=== PATIENT | female | born 1940 | race Caucasian/White ===

== ENCOUNTER 2022-04-26 01:31 | Emergency (ER) | payer MEDICARE, BC, SELFPAY ==
[2022-04-26 02:06] VITALS: BP 225/113; PULSE 127; RESP 18
[2022-04-26 02:35] LABS: Basophils Percent Auto 0.4 % (0.0-3.0); Eosinophils Percent Auto 2.3 % (0.0-7.0); Hematocrit 36.9 % (33.0-51.0); Hemoglobin* 12.1 gm/dL (12.0-16.0); Immature Granulocytes Abs Auto 0.02 K/uL (0.00-0.30); Lymphocytes Percent Auto 50.8 % (20-44); Mean Corpuscular HGB Conc 33 gm/dL (32-36); Mean Corpuscular Hemoglobin 30 pg (26-34); Mean Corpuscular Volume 91 fL (80-100); Monocytes Percent Auto 9.4 % (0.0-11.0); Neutrophils Percent Auto 36.9 % (42.0-72.0); Platelet Count* 348 K/uL (140-440); RDW Coefficient of Variation % 14.3 % (11.5-15.5); Red Blood Count 4.07 m/uL (4.00-5.20); White Blood Count* 11.78 K/uL (4.50-11.00)
--- NOTE | 2022-04-26 02:37 | ED.ARRPALP ---
HPI - Arrhythmia/Palpitations General Time Seen by Provider: 02:37 Date Seen: 04/26/22 Chief Complaint: Arrhythmia/Palpitations Stated Complaint: Chest pain In tachycardia for last hour Time Seen by Provider: 04/26/22 01:56 Source: patient Mode of arrival: ambulatory Limitations: no limitations History of Present Illness HPI narrative: Pleasant 82-year-old lady presents here with a tachycardia this started approximately an hour ago while she was sleeping, woke her up for sleep she notes a little bit of tightness in the left side of her chest also. Never before had this at least in her house, she had this once after what sounds like a Lexiscan done at the [facility]. She ended up getting sent to the ER they gave her for medications and resolved. She has had 2 previous angiograms greater than 10 years ago that were both clean, and a Lexiscan 2 years ago that also showed no evidence of abnormality. She has no exertional chest pain no shortness of breath no other problems, denies any other cardiac risk factors other than her age. Was not drinking alcohol tonight, she does not use any cold type medications, denies any leg swelling, fevers, chills, cough cold-like symptoms MD complaint: rapid heart beat Onset (ago): hour(s) Time: 01:00 Duration: constant Severity: moderate Context: occurred during rest Arrhythmia history: SVT Associated symptoms: chest pain Related Data Allergies Allergy/AdvReac Type Severity Reaction Status Date / Time lisinopril AdvReac Verified 04/26/22 03:25 metoprolol AdvReac Verified 04/26/22 03:25 Review of Systems Status of ROS: Reports: 10 or more systems reviewed and unremarkable except as noted in History and below Exam Const: Vital Signs, click to edit/add: Vital Signs - 24 hr 04/26/22 02:06 04/26/22 04:22 Pulse Rate [Apical ] 127 H 83 Respiratory Rate 18 16 Blood Pressure [Le ft Upper Arm] 225/113 H Documenting provider has reviewed patient's vital signs: yes Common normals: no apparent distress, average body habitus and oriented x3 General appearance: cooperative, comfortable, well kempt and well developed Nutritional appearance: overweight Orientation/consciousness: Yes awake, Yes oriented to person, Yes oriented to place and Yes oriented to time HENMT: Common normals: normocephalic, head/scalp atraumatic, hearing grossly normal bilaterally, external ears normal, EAC's normal, TM's normal bilaterally, external nose normal, nasal mucous membranes and turbinates normal, moist oral mucous membranes, oropharynx normal, dentition normal and gingiva normal Head and scalp: normocephalic and atraumatic Nose: external nose normal and nasal mucous membranes and turbinates normal External ear: external ears normal External auditory canal: EAC's normal Tympanic membrane: TM's normal bilaterally Eye: Common normals: PERRL, EOMs intact bilaterally, conjunctivae normal, no scleral icterus, no papilledema, normal visual sloan by confrontation and fundi normal bilaterally Conjunctiva: conjunctiva(e) normal Pupil: PERRL Direct Ophthalmoscopy: no papilledema and fundi normal bilaterally Neck & C-Spine: Common normals: full ROM, no lymphadenopathy, supple, no meningeal signs, no JVD, thyroid normal and no carotid bruits Thyroid: thyroid normal Resp: Common normals: normal respiratory effort, no retractions, no use of accessory muscles, clear to auscultation bilaterally and percussion normal Auscultation: clear to auscultation bilaterally Percussion: percussion normal Cardio: Common normals: no JVD, regular rate, regular rhythm, S1 normal heart sound, S2 normal heart sound, no gallops, no clicks, no murmurs, no rub and peripheral pulses 2+ throughout Palpation: normal PMI Rate: regular rate Rhythm: regular rhythm Heart sounds: S1 normal and S2 normal Peripheral pulses: pulses 2+ throughout GI: Common normals: Normal to inspection, nondistended, normoactive bowel sounds present, soft to palpation, non-tender, no hepatosplenomegaly, no masses and no bruits Palpation: soft and no hepatosplenomegaly : Common normals: no CVA tenderness Bladder/kidney exam: no CVA tenderness Back & Pelvis: Common normals: no CVA tenderness Neuro: Common normals: oriented x3, CN's II-XII intact bilaterally, moves all extremities, no focal motor deficits, no sensory deficits noted, deep tendon reflexes 2+ bilaterally and gait normal Sensorium/orientation: awake, oriented to person, oriented to place and oriented to time Meningeal signs: no meningeal signs Psych: Appearance: well kempt Skin: Common normals: no rashes or lesions noted, no wounds, skin turgor normal, no jaundice, no petechiae and no mottling General skin exam: no rashes or lesions noted and turgor normal Course Course Hospital Course: Patient is seen and assessed she has narrow complex tachycardia, rate is consistent between 140 and 150, I do not see P waves, her EKG does not show significant ST wave depression, in comparison to old EKG from February of this year, no real change noted other than she has a shorter VT interval. I do recommend we do laboratory testing, and try some adenosine, unfortunately the adenosine both 6 and 12 mg in not convert her. We then started her on fluids, 2 L of fluids along with 2 g of magnesium, and also diltiazem 20 mg, after approximately 20 minute she then converted to normal sinus rhythm. And feels much improved. Vital Signs Vital signs: Initial Vital Signs Pulse Rate 127 H 04/26/22 02:06 Pulse Rhythm 04/26/22 02:06 Respiratory Rate 18 04/26/22 02:06 Blood Pressure 225/113 H 04/26/22 02:06 Blood Pressure Mean 150 04/26/22 02:06 Blood Pressure Position Supine 04/26/22 02:06 Oxygen Delivery Method 04/26/22 02:06 Vital Signs Pulse Rate 127 H 04/26/22 02:06 Respiratory Rate 18 04/26/22 02:06 Blood Pressure 225/113 H 04/26/22 02:06 Pulse Rate 83 04/26/22 04:22 Respiratory Rate 16 04/26/22 04:22 Blood Pressure 225/113 H 04/26/22 02:06 MDM - Arrhythmia/Palpitations MDM Narrative Medical decision making narrative: Differential diagnosis includes but is not limited to psychosocial stress, thyroid abnormalities, CHF, SVT, atrial fibrillation, ventricular tachycardia and ventricular fibrillation. This includes the life-threatening complications of heart failure, V-tach, and VFib Medical Records Attestation: I reviewed the patient's medical records. Lab Data Attestation: I reviewed the patient's lab results. Labs: Lab Results 04/26/22 04/26/22 04/26/22 Range/Units 02:25 02:25 02:25 WBC 11.78 H (4.50-11.00) K/uL RBC 4.07 (4.00-5.20) m/uL Hgb 12.1 (12.0-16.0) gm/dL Hct 36.9 (33.0-51.0) % MCV 91 (80-100) fL MCH 30 (26-34) pg MCHC 33 (32-36) gm/dL RDW Coeff of Albert 14.3 (11.5-15.5) % Plt Count 348 (140-440) K/uL Neut % (Auto) 36.9 L (42.0-72.0) % Lymph % (Auto) 50.8 H (20-44) % [place] % (Auto) 9.4 (0.0-11.0) % Eos % (Auto) 2.3 (0.0-7.0) % Baso % (Auto) 0.4 (0.0-3.0) % Neut # (Auto) 4.30 (1.7-7.0) K/uL Lymph # (Auto) 6.00 H (0.90-2.90) K/uL [place] # (Auto) 1.10 H (0.00-0.90) K/UL Eos # (Auto) 0.30 (0.00-0.50) K/uL Baso # (Auto) 0.00 (0.00-0.30) K/uL Abs Immat Gran (auto) 0.02 (0.00-0.30) K/uL INR 0.98 (0.91-1.10) APTT 33 (23-33) Seconds Sodium 139 (135-149) mmol/L Potassium 3.8 (3.6-5.1) mmol/L Chloride 105 (96-114) mmol/L Carbon Dioxide 24 (20-32) mmol/L BUN 27 (7-30) mg/dL Creatinine 1.1 (0.5-1.5) mg/dL Estimated GFR 50 ml/min Glucose 120 H (60-115) mg/dL Calcium 9.4 (8.4-10.6) mg/dL Troponin I < 0.01 L (0.01-0.04) ng/mL C-Reactive Protein < 0.5 L (0.5-1.0) mg/dL NT-Pro-B Natriuret Pep 713 H (0-450) PG/mL ECG Data Attestation: I personally reviewed and interpreted this ECG as follows: ECG interpretation date: 04/26/22 Prior ECG tracings: available for review Interpretation: Initial EKG showed narrow complex tachycardia but there seems to be some irregularity of atrial fibrillation with a rate at 150.. Some mild ST wave changes also with this. Follow-up EKG after patient converted, shows normal sinus rhythm Critical Care Time Critical Care Time Critical Care Time: Yes Attestation: The patient required my highest level preparedness to intervene emergently and I personally spent this critical care time directly and personally managing the patient. This critical care time included: Obtaining a history; Examining the patient; Pulse oximetry; Ordering and reviewing of studies; Arranging urgent treatment with development of a management plan; Evaluation of patients response to treatment; Frequent reassessment discussions with other providers. This critical care time was performed to assess and manage the high probability of imminent life-threatening deterioration that could result in multiorgan failure. It was exclusive of separate billable procedures and treating other patients and teaching time. Total Critical Care Time in Minutes: 60 Discharge Plan Discharge Clinical Impression: Atrial fibrillation Patient Disposition: Home w/ Parent or Adult Condition: Improved Instructions: A-fib (Atrial Fibrillation) (ED) Additional Instructions: Home rest 81 mg a day aspirin, this is to prophylax. Follow-up if increasing chest pain shortness of breath or other issues. Suggest to follow up with Cardiology, Return as needed. Activity Level: No Restrictions Follow Up/Referrals: Irma Mandujano DO [Primary Care Provider] - Stand Alone Forms: [employer] Info Instructions
[2022-04-26 02:40] LABS: Slide Review Reflex No
[2022-04-26 02:50] LABS: Chloride* 105 mmol/L (96-114); Potassium* 3.8 mmol/L (3.6-5.1); Sodium* 139 mmol/L (135-149)
[2022-04-26 02:52] LABS: INR 0.98 (0.91-1.10); Prothrombin Time 13.4 Seconds
[2022-04-26 02:53] LABS: Creatinine* 1.1 mg/dL (0.5-1.5); Estimated Glomerular Filt Rate 50 ml/min; Partial Thromboplastin Time* 33 Seconds (23-33)
[2022-04-26 02:54] LABS: Blood Urea Nitrogen* 27 mg/dL (7-30); Calcium* 9.4 mg/dL (8.4-10.6); Carbon Dioxide* 24 mmol/L (20-32); Glucose* 120 mg/dL (60-115)
[2022-04-26 02:58] VITALS: BP 205/103; PULSE 141; RESP 16; O2SAT 99
[2022-04-26 03:03] LABS: NT Pro B Type NatriureticPept* 713 PG/mL (0-450)
[2022-04-26 03:07] VITALS: BP 225/138; PULSE 152; O2SAT 99
[2022-04-26 03:07] LABS: C Reactive Protein* < 0.5 mg/dL (0.5-1.0); Troponin I* < 0.01 ng/mL (0.01-0.04)
[2022-04-26] MEDS: ADENOSINE 6 MG/2ML INJ IVP (03:22)
[2022-04-26] MEDS: ADENOSINE 6 MG/2ML INJ 12 MG IVP (03:22)
[2022-04-26] MEDS: 0.9 % SODIUM CHLORIDE 1000 ml 1,000 ML IV (03:35)
[2022-04-26 03:42] VITALS: BP 184/77; PULSE 78; O2SAT 99
[2022-04-26] MEDS: MAGNESIUM SULFATE 2 GM/50 ML PIGGYBACK IVPB (03:45)
[2022-04-26 04:22] VITALS: PULSE 83; RESP 16
[2022-04-26 05:22] LABS: Magnesium* 2.4 mg/dL (1.5-2.6)
== END 2022-04-26 04:38 | disposition home or self-care (01) ==
PROVIDERS: Emergency Provider Family Medicine; PCP Family Medicine
DX: I48.91 Unspecified atrial fibrillation (principal)
CPT/HCPCS: 36415; 80048; 83735; 83880; 84484; 85025; 85610; 85730; 86140; 93005; 99285; 99291; J0153; J3475; J7030

== ENCOUNTER 2022-06-23 13:03 | Outpatient (CLI) | payer MEDICARE, BC, SELFPAY | END 2022-06-23 13:04 | disposition home or self-care (01) | LOC: INJ CL 13:04 | PROVIDERS: PCP Family Medicine; Visit Provider Family Medicine | DX: M54.16 Radiculopathy, lumbar region (principal); M51.36 Other intervertebral disc degeneration, lumbar region | CPT/HCPCS: 64483; J1100; Q9966 ==

== ENCOUNTER 2023-01-07 16:43 | Outpatient (CLI) | payer MEDICARE, BC, SELFPAY | END 2023-01-07 16:44 | disposition home or self-care (01) | LOC: AMB 01-11 09:52 | PROVIDERS: PCP Family Medicine; Visit Provider Family Medicine | DX: R06.09 Other forms of dyspnea (principal); R06.82 Tachypnea, not elsewhere classified | CPT/HCPCS: A0425; A0427 ==

== ENCOUNTER 2023-01-07 17:04 | Emergency (ER) | payer MEDICARE, BC, SELFPAY ==
[2023-01-07 17:06] VITALS: BP 209/87; PULSE 57; RESP 20; TEMP 36.9; O2SAT 98; BMI 29.5
[2023-01-07 17:30] VITALS: BP 195/80; PULSE 55; RESP 20; O2SAT 98
--- NOTE | 2023-01-07 17:44 | CRLHL7_ITS ---
For Patients: As a result of the Century Cures Act, medical imaging exams and procedure reports are released immediately into your electronic medical record. You may view this report before your referring provider. If you have questions, please contact your health care provider. HISTORY: Shortness of breath. TECHNIQUE: Two-view chest. COMPARISON: Chest x-ray 01/07/2023. FINDINGS: No airspace consolidation. No pleural effusion or pneumothorax. Pulmonary vasculature and cardiomediastinal silhouette are unremarkable. IMPRESSION: No cardiopulmonary abnormality. Dictated by Vishnu Leroy MD @ 01/07/2023 7:16:35 PM (Electronically Signed)
[2023-01-07 17:54] LABS: Basophils Absolute Auto 0.02 K/uL (0.00-0.30); Basophils Percent Auto 0.2 % (0.0-3.0); Eosinophils Absolute Auto 0.19 K/uL (0.00-0.50); Eosinophils Percent Auto 1.8 % (0.0-7.0); Hematocrit 33.4 % (33.0-51.0); Immature Granulocytes Abs Auto 0.04 K/uL (0.00-0.30); Immature Granulocytes Pct Auto 0.4 %; Lymphocytes Percent Auto 48.6 % (20-44); Mean Corpuscular HGB Conc 33 gm/dL (32-36); Mean Corpuscular Hemoglobin 30 pg (26-34); Mean Corpuscular Volume 92 fL (80-100); Monocytes Percent Auto 10.7 % (0.0-11.0); Neutrophils Percent Auto 38.3 % (42.0-72.0); Platelet Count* 436 K/uL (140-440); RDW Coefficient of Variation % 14.4 % (11.5-15.5); Red Blood Count 3.65 m/uL (4.00-5.20); Slide Review Reflex No
[2023-01-07 17:57] LABS: Chloride* 105 mmol/L (96-114); Potassium* 4.5 mmol/L (3.6-5.1); Sodium* 134 mmol/L (135-149)
[2023-01-07 18:00] VITALS: BP 180/69; PULSE 55; RESP 21; O2SAT 100
[2023-01-07 18:00] LABS: Blood Urea Nitrogen* 26 mg/dL (7-30); Carbon Dioxide* 25 mmol/L (20-32); Creatinine* 1.1 mg/dL (0.5-1.5); Est. Creatinine Clearance* 34.05; Estimated Glomerular Filt Rate 50 ml/min; Glucose* 94 mg/dL (60-115)
[2023-01-07 18:01] LABS: Calcium* 8.6 mg/dL (8.4-10.6); D Dimer Quantitative* 0.83 ug/ml (0.00-0.50)
[2023-01-07 18:10] LABS: NT Pro B Type NatriureticPept* 656 pg/mL
--- NOTE | 2023-01-07 18:24 | CRLHL7_ITS ---
For Patients: As a result of the Century Cures Act, medical imaging exams and procedure reports are released immediately into your electronic medical record. You may view this report before your referring provider. If you have questions, please contact your health care provider. INDICATION: Elevated D-dimer. COMPARISON: No prior chest CTs available for comparison TECHNIQUE: : CT examination of the chest was performed with the uneventful intravenous administration of 95 cc of Isovue 370 while thin axial sections were obtained from above the apices of the lungs to the lung bases. Please note that all CT scans at this facility use dose modulation, iterative reconstruction, and/or weight-based dosing when appropriate to reduce radiation dose to as low as reasonably achievable. FINDINGS: : HEART and MEDIASTINUM: The heart size is normal. There is no mediastinal or hilar adenopathy or mass. There is no pericardial effusion. PULMONARY ARTERIAL CIRCULATION: There is no visible intraluminal filling defect to suggest pulmonary embolus. LUNGS and PLEURAL SPACES: Biapical pleural parenchymal scarring. A right apical subpleural masslike opacities noted that is best seen on series, image 20 and series 7, image 216. This measures 2.5 x 1.9 x 1.0 centimeters. Differential considerations are asymmetric pleural-parenchymal scarring versus a right apical neoplasm. In the absence of prior CT showing stability, a PET-CT is recommended for further evaluation. Also, there are minimal areas of scarring and atelectasis especially at the bases. VISUALIZED UPPER ABDOMEN: The limited visualized upper abdominal structures appear normal. OSSEOUS STRUCTURES: Age-appropriate appearance. No acute fracture or destructive process. TUBES and LINES: None. IMPRESSION: 1. There is no finding of pulmonary embolus. 2. Right apical subpleural mass measuring 2.5 x 1.9 x 1.0 centimeters. Differential considerations are pleural-parenchymal scarring versus a neoplasm. A PET-CT is recommended for differentiation. 3. No mediastinal or hilar adenopathy or mass. Minimal basilar atelectasis or scarring. No pleural effusion. Please note that all CT scans at this facility use dose modulation, iterative reconstruction, and/or weight-based dosing when appropriate to reduce radiation dose to as low as reasonably achievable. Dictated by Raman Velarde MD @ 01/07/2023 7:47:10 PM (Electronically Signed)
[2023-01-07 18:29] LABS: SARS PCR* Negative SARS-CoV-2 (Negative)
[2023-01-07 18:30] VITALS: BP 181/72; PULSE 54; RESP 20; O2SAT 99
[2023-01-07] MEDS: METHYLPREDNISOLONE SOD SUCC 62.5 MG/ML (125) 80 MG IVP (18:43)
[2023-01-07] MEDS: IPRAT-ALBUT 0.5-2.5 MG/3 ML NEB 1 NEB IH (18:43)
--- NOTE | 2023-01-07 19:21 | ED_ITS ---
HPI - General Adult General Date Seen: 01/07/23 Chief complaint: Shortness of Breath/Dyspnea Stated complaint: Respiratory Issues Time Seen by Provider: 01/07/23 17:34 Source: patient Mode of arrival: EMS Limitations: no limitations History of Present Illness HPI narrative: Patient is an 82-year-old female who was sent over from urgent care with concerns of wheezing and shortness of breath. She has had some struggles over the past month with cough, chest congestion, wheezing. She was seen in [place] on several occasions and was even admitted to the hospital. Her admission sounds as though it was for rapid atrial fibrillation and not for shortness of breath. She does not cough anything up. She uses a nebulizer which helps briefly. Somewhere along the way she was given a Medrol Dosepak which helped for about two days and then stopped. She denies fevers. They have been adjusting her blood pressure medicine and her pressure has been running very high. When she saw the linux systems analyst in [place] she was not in atrial fibrillation. Related Data Home Medications Medication Instructions Recorded Confirmed amlodipine 10 mg tablet 10 mg PO DAILY 01/07/23 01/07/23 apixaban 5 mg tablet (Eliquis) 5 mg PO BID 01/07/23 01/07/23 levothyroxine 88 mcg tablet 88 mcg PO DAILY 01/07/23 01/07/23 (Synthroid) losartan 25 mg tablet 25 mg PO DAILY 01/07/23 01/07/23 rivaroxaban 20 mg tablet (Xarelto) 20 mg PO QPM 01/07/23 01/07/23 sotalol 80 mg tablet 40 mg PO Q12H 01/07/23 01/07/23 Previous Rx's Medication Instructions Recorded prednisone 20 mg tablet 10 - 40 mg PO DAILY #14 tabs 01/07/23 Allergies Allergy/AdvReac Type Severity Reaction Status Date / Time lisinopril AdvReac Mild Cough Verified 01/07/23 18:39 metoprolol AdvReac Mild Cough Verified 01/07/23 18:39 Review of Systems Narrative: Significant for chronic low back issues requiring injections. Recent atrial fibrillation. Review of systems is otherwise noted to be negative. PFSH PFSH Social History Smoking Status: Never smoker Do you use any of these nicotine containing products: None Second hand tobacco smoke exposure: No How often do you have a drink containing alcohol: never AUDIT-C Alcohol total score: 0 Non-prescribed substance use: denies use service: No Exam Narrative: Exam Narrative: Vitals noted. Initially there is audible wheezing. HEENT: Conjunctiva clear. Tympanic membranes are pearly white bilaterally. Posterior pharynx is clear without erythema or exudate. Neck is supple without adenopathy, thyromegaly, carotid bruit. Lungs: Lungs are diminished with inspiratory and expiratory wheezes and a prolonged expiratory phase. No localizing rales or rhonchi. Heart: Regular rate and rhythm with a soft systolic murmur. Abdomen: Soft and nontender. No guarding, rigidity, rebound. Bowel sounds are normal. No palpable masses. Extremities: No cyanosis or edema. Good distal pulses. Skin: No abnormalities noted of the exposed skin. Neurologic: Awake, alert, fully oriented. Neurologic exam is nonfocal. Const: Vital Signs, click to edit/add: Vital Signs - 24 hr 01/07/23 17:06 01/07/23 17:30 01/07/23 18:00 Temperature 98.4 F Pulse Rate [Pulse Oximeter] 57 L 55 L 55 L Respiratory Rate 20 20 21 Blood Pressure [Le ft Upper Arm] 209/87 H 195/80 H 180/69 H Pulse Oximetry 98 98 100 Oxygen Delivery Me thod Room Air Room Air Room Air 01/07/23 18:30 01/07/23 19:30 Temperature Pulse Rate [Pulse Oximeter] 54 L 55 L Respiratory Rate 20 21 Blood Pressure [Le ft Upper Arm] 181/72 H 199/68 H Pulse Oximetry 99 98 Oxygen Delivery Me thod Room Air Course Course Hospital Course: Patient was seen and examined. EKG shows sinus bradycardia with a rate of 56. Chest x-ray does not show any acute infiltrate. Because of her positive D-dimer I did do a chest CT which shows either an area of scar tissue in the right apex or a mass. She claims to have had previous CT scans but I do not have access to those. She may need a PET-CT for further evaluation. CBC shows a hemoglobin of 11.0. D-dimer is 0.83. Basic metabolic panel is normal. ProBNP is 656. COVID test is negative. Reevaluation(s) Reevaluation #1: Patient is given Solu-Medrol 80 mg IV and DuoNeb with almost complete clearing of her wheezing. Vital Signs Vital signs: Initial Vital Signs Temperature 98.4 F 01/07/23 17:06 Temperature Source Temporal Artery Scan 01/07/23 17:06 Pulse Rate 57 L 01/07/23 17:06 Respiratory Rate 20 01/07/23 17:06 Blood Pressure 209/87 H 01/07/23 17:06 Blood Pressure Mean 127 01/07/23 17:06 Blood Pressure Position Supine 01/07/23 17:06 Pulse Oximetry 98 01/07/23 17:06 Oxygen Delivery Method Room Air 01/07/23 17:06 Vital Signs Temperature 98.4 F 01/07/23 17:06 Pulse Rate 57 L 01/07/23 17:06 Respiratory Rate 20 01/07/23 17:06 Blood Pressure 209/87 H 01/07/23 17:06 Pulse Oximetry 98 01/07/23 17:06 Oxygen Delivery Method Room Air 01/07/23 17:06 Temperature 98.4 F 01/07/23 17:06 Pulse Rate 55 L 01/07/23 19:30 Respiratory Rate 21 01/07/23 19:30 Blood Pressure 199/68 H 01/07/23 19:30 Pulse Oximetry 98 01/07/23 19:30 Oxygen Delivery Method Room Air 01/07/23 19:30 Medical Decision Making MDM Narrative Medical decision making narrative: This does not appear to be congestive heart failure or pneumonia. She has bronchospasm related to either COPD or asthma. She is much improved with steroids and nebs. Lab Data Labs: Lab Results 01/07/23 01/07/23 Range/Units 17:12 17:45 WBC 10.30 (4.50-11.00) K/uL RBC 3.65 L (4.00-5.20) m/uL Hgb 11.0 L (12.0-16.0) gm/dL Hct 33.4 (33.0-51.0) % MCV 92 (80-100) fL MCH 30 (26-34) pg MCHC 33 (32-36) gm/dL RDW Coeff of Albert 14.4 (11.5-15.5) % Plt Count 436 (140-440) K/uL Neut % (Auto) 38.3 L (42.0-72.0) % Lymph % (Auto) 48.6 H (20-44) % [place] % (Auto) 10.7 (0.0-11.0) % Eos % (Auto) 1.8 (0.0-7.0) % Baso % (Auto) 0.2 (0.0-3.0) % Neut # (Auto) 3.90 (1.7-7.0) K/uL Lymph # (Auto) 5.00 H (0.90-2.90) K/uL [place] # (Auto) 1.10 H (0.00-0.90) K/UL Eos # (Auto) 0.19 (0.00-0.50) K/uL Baso # (Auto) 0.02 (0.00-0.30) K/uL D-Dimer Quant (PE/DVT) 0.83 H (0.00-0.50) ug/ml Sodium 134 L (135-149) mmol/L Potassium 4.5 (3.6-5.1) mmol/L Chloride 105 (96-114) mmol/L Carbon Dioxide 25 (20-32) mmol/L BUN 26 (7-30) mg/dL Creatinine 1.1 (0.5-1.5) mg/dL Estimated Creat Clear 34.05 Estimated GFR 50 ml/min Glucose 94 (60-115) mg/dL Calcium 8.6 (8.4-10.6) mg/dL NT-Pro-B Natriuret Pep 656 pg/mL SARS-CoV-2 (PCR) Negative SARS-CoV-2 (Negative) Discharge Plan Discharge Clinical Impression: Asthma with acute exacerbation, Mass of right lung Patient Disposition: Home, Self-Care Instructions: Wheezing (ED) Additional Instructions: Increase losartan from 25 mg up to 50 mg daily. Take prednisone taper over the next 12 days. Follow-up with Dr. Mandujano in 5-7 days to discuss further workup of the mass in your right lung. Use nebulizer 4 times a day as needed. Activity Level: No Restrictions Discharge Diet: Regular Prescriptions: New prednisone 20 mg tablet 10 - 40 mg PO DAILY Qty: 14 0RF Rx Instructions: 40 mg daily for four days, 20 mg daily for four days, 10 mg daily for four days then stop. No Action sotalol 80 mg tablet 40 mg PO Q12H levothyroxine [Synthroid] 88 mcg tablet 88 mcg PO DAILY amlodipine 10 mg tablet 10 mg PO DAILY losartan 25 mg tablet 25 mg PO DAILY Xarelto 20 mg tablet 20 mg PO QPM Eliquis 5 mg tablet 5 mg PO BID Follow Up/Referrals: Irma Mandujano DO [Primary Care Provider] - Stand Alone Forms: [facility] Info Instructions
[2023-01-07] MEDS: LOSARTAN POTASSIUM 50 MG TABLET PO (19:29)
[2023-01-07 19:30] VITALS: BP 199/68; PULSE 55; RESP 21; O2SAT 98
== END 2023-01-07 20:22 | disposition home or self-care (01) ==
PROVIDERS: Emergency Provider Family Medicine; PCP Family Medicine
DX: J45.901 Unspecified asthma with (acute) exacerbation (principal); R91.8 Other nonspecific abnormal finding of lung field
CPT/HCPCS: 36415; 71046; 71260; 80048; 83880; 85025; 85379; 87635; 94640; 96374; 99283; 99284; 99285; A9270; J2930; Q9967

== ENCOUNTER 2023-01-14 22:00 | Outpatient (CLI) | payer MEDICARE, BC, SELFPAY | END 2023-01-14 22:01 | disposition home or self-care (01) | LOC: AMB 01-15 11:57 | PROVIDERS: PCP Family Medicine; Visit Provider Emergency Medicine Emergency Medical Services | DX: R07.89 Other chest pain (principal); R06.09 Other forms of dyspnea | CPT/HCPCS: A0425; A0427 ==

== ENCOUNTER 2023-01-14 22:34 | Emergency (ER) | payer MEDICARE, BC, SELFPAY ==
[2023-01-14] VITALS (8 sets, daily range): BP systolic 163–182; BP diastolic 68–96; PULSE 45–58; RESP 16; TEMP 36.6; O2SAT 98–99; BMI 29.2
[2023-01-14 23:29] LABS: Eosinophils Percent Auto 0.1 % (0.0-7.0); Hematocrit 32.6 % (33.0-51.0); Hemoglobin* 10.9 gm/dL (12.0-16.0); Immature Granulocytes Pct Auto 0.4 %; Mean Corpuscular HGB Conc 33 gm/dL (32-36); Mean Corpuscular Hemoglobin 30 pg (26-34); Mean Corpuscular Volume 90 fL (80-100); Monocytes Percent Auto 6.1 % (0.0-11.0); Neutrophils Percent Auto 69.4 % (42.0-72.0); Platelet Count* 329 K/uL (140-440); RDW Coefficient of Variation % 14.4 % (11.5-15.5); Red Blood Count 3.64 m/uL (4.00-5.20); White Blood Count* 15.12 K/uL (4.50-11.00)
[2023-01-14 23:32] LABS: Slide Review Reflex No
--- NOTE | 2023-01-14 23:34 | ED_ITS ---
HPI - General Adult General Date Seen: 01/14/23 Chief complaint: Chest Pain Stated complaint: Chest pains Time Seen by Provider: 01/14/23 22:35 Source: patient Mode of arrival: ambulatory Limitations: no limitations History of Present Illness HPI narrative: Patient is an 82-year-old here for evaluation of some chest heaviness and elevated blood pressure. She has been having trouble lately has had a few hospital visits and an admission in [place] for rapid AFib. According to a visit with Dr. Kay here in the ER a week ago they have been working on her blood pressure and it has been running high. She has been having trouble with wheezing, had an evaluation her last week that was unremarkable. Has been responding to steroids and inhalers. She says that she had an echo by her commercial airline pilot a few months ago that was normal. She had a stress test a couple of years ago that was normal and says she has also had a couple of angiograms over years and has always been told that they were clean. Today, she says that she just was not feeling well, she has been having chest pressure on and off throughout the past week although there is no exertional component, it seems to come and go at will. Today however she checked her blood pressure at home and it was 206 systolic which concerned her, so she called 911. She received nitroglycerin in the ambulance. She does not have any chest pressure right now but it is unclear that the nitroglycerin was helpful. She says that she did not feel any effect from it. She denies shortness of breath currently, she has not had fevers. She does take Xarelto for AFib. Related Data Home Medications Medication Instructions Recorded Confirmed amlodipine 10 mg tablet 10 mg PO DAILY 01/07/23 01/14/23 levothyroxine 88 mcg tablet 88 mcg PO DAILY 01/07/23 01/07/23 (Synthroid) losartan 25 mg tablet 25 mg PO DAILY 01/07/23 01/14/23 rivaroxaban 20 mg tablet (Xarelto) 20 mg PO QPM 01/07/23 01/14/23 sotalol 80 mg tablet 40 mg PO Q12H 01/07/23 01/14/23 albuterol sulfate 2.5 mg/3 mL 2.5 mg continuous nebulization Q4H 01/14/23 01/14/23 (0.083 %) solution for nebulization PRN cough Previous Rx's Medication Instructions Recorded prednisone 20 mg tablet 10 - 40 mg PO DAILY #14 tabs 01/07/23 Allergies Allergy/AdvReac Type Severity Reaction Status Date / Time WILLIAM Inhibitors Allergy Mild Hives Verified 01/14/23 22:53 hyoscyamine [From Levsin] Allergy Mild Hives Verified 01/14/23 22:53 apixaban [From Eliquis] AdvReac Intermediate Diarrhea Verified 01/14/23 22:53 lisinopril AdvReac Mild Cough Verified 01/14/23 22:53 metoprolol AdvReac Mild Cough Verified 01/14/23 22:53 Review of Systems Status of ROS: Reports: 10 or more systems reviewed and unremarkable except as noted in History and below [facility] Medical History Anticoagulation monitoring, INR range 2-3 ?Z79.01 - [facility]FP (current) use of anticoagulants (ICD-10) Chest pain ?R07.9 - Chest pain, unspecified (ICD-10) Duodenal ulcer, unspecified as acute or chronic, without hemorrhage or perfora tion ?K26.9 - Duodenal ulcer, unspecified as acute or chronic, without hemorrhage or perforation (ICD-10) Edema ?R60.9 - Edema, unspecified (ICD-10) Esophageal reflux ?K21.9 - Gastro-esophageal reflux disease without esophagitis (ICD-10) Hiatal hernia ?K44.9 - Diaphragmatic hernia without obstruction or gangrene (ICD-10) Hyperlipidemia ?E78.5 - Hyperlipidemia, unspecified (ICD-10) Hypertension ?I10 - Essential (primary) hypertension (ICD-10) Hypothyroidism ?E03.9 - Hypothyroidism, unspecified (ICD-10) Intestinal infection due to campylobacter ?A04.5 - Campylobacter enteritis (ICD-10) 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 - Migraine with aura, not intractable, without status migrainosus (ICD-10) Osteopenia ?M85.80 - Other specified disorders of bone density and structure, unspecified site (ICD-10) Vitamin D deficiency ?E55.9 - Vitamin D deficiency, unspecified (ICD-10) Surgical History History of appendectomy ?Z90.49 - Acquired absence of other specified parts of digestive tract (ICD- 10) History of breast augmentation ?Z98.82 - Breast implant status (ICD-10) History of cataract removal with insertion of prosthetic lens ?Z98.49 - Cataract extraction status, unspecified eye (ICD-10) ?Z96.1 - Presence of intraocular lens (ICD-10) History of cholecystectomy ?Z90.49 - Acquired absence of other specified parts of digestive tract (ICD- 10) History of colonoscopy ?Z98.890 - Other specified postprocedural states (ICD-10) History of esophagogastroduodenoscopy (EGD) ?Z98.890 - Other specified postprocedural states (ICD-10) History of eye surgery ?Z98.890 - Other specified postprocedural states (ICD-10) History of knee replacement ?Z96.659 - Presence of unspecified artificial knee joint (ICD-10) History of lumbar discectomy ?Z98.890 - Other specified postprocedural states (ICD-10) History of surgery on lower extremity ?Z98.890 - Other specified postprocedural states (ICD-10) History of surgery on lower extremity ?Z98.890 - Other specified postprocedural states (ICD-10) S/P epidural steroid injection ?Z92.241 - Personal history of systemic steroid therapy (ICD-10) Social History Smoking Status: Never smoker Do you use any of these nicotine containing products: None Second hand tobacco smoke exposure: No How often do you have a drink containing alcohol: never AUDIT-C Alcohol total score: 0 Non-prescribed substance use: denies use service: No Exam Narrative: Exam Narrative: Vital signs as noted above. In general, an alert, well-appearing patient. Head: Normocephalic, atraumatic. Eyes: Pupils are equal reactive. Extraocular movements are full. Conjunctivae are normal. ENT: Mucous membranes are moist. Throat is normal. Neck: Supple without lymphadenopathy. Heart: Regular rate and rhythm. No murmur or rub. Lungs: Clear bilaterally. No increased work of breathing, crackles or wheezes. Abdomen: Soft and nontender. No organomegaly. Extremities: Well perfused. No edema. She says her left leg is chronically tender due to history of multiple previous surgeries. Are there is no erythema, no swelling. Pulses are intact. Neurologic: Patient is alert and oriented to person and place. Speech is fluent. Face is symmetric. Moves all extremities equally. Affect: Normal. Skin: Warm and dry. Well perfused. Const: Vital Signs, click to edit/add: Vital Signs - 24 hr 01/14/23 22:40 01/14/23 22:45 01/14/23 23:00 Temperature 97.8 F Pulse Rate 46 L 45 L Pulse Rate [Right Pulse Oximeter] 58 L Respiratory Rate 16 Blood Pressure Blood Pressure [Le ft Upper Arm] 180/81 H Pulse Oximetry 98 99 [facility] 01/14/23 23:02 01/14/23 23:15 01/14/23 23:30 Temperature Pulse Rate 47 L 47 L 46 L Pulse Rate [Right Pulse Oximeter] Respiratory Rate Blood Pressure 182/68 H Blood Pressure [Le ft Upper Arm] Pulse Oximetry 98 98 98 [facility] 01/14/23 23:32 01/14/23 23:45 01/15/23 00:00 Temperature Pulse Rate 45 L 45 L 43 L Pulse Rate [Right Pulse Oximeter] Respiratory Rate Blood Pressure 163/96 H Blood Pressure [Le ft Upper Arm] Pulse Oximetry 98 98 98 [facility] 01/15/23 00:02 01/15/23 00:15 01/15/23 00:30 Temperature Pulse Rate 42 L 45 L 44 L Pulse Rate [Right Pulse Oximeter] Respiratory Rate Blood Pressure 167/61 H Blood Pressure [Le ft Upper Arm] Pulse Oximetry 98 99 99 [facility] 01/15/23 00:32 01/15/23 00:32 01/15/23 00:32 Temperature Pulse Rate 45 L 45 L 45 L Pulse Rate [Right Pulse Oximeter] Respiratory Rate Blood Pressure 192/68 H 192/68 H 192/68 H Blood Pressure [Le ft Upper Arm] Pulse Oximetry 100 100 100 [facility] 01/15/23 00:45 01/15/23 01:00 01/15/23 01:02 Temperature Pulse Rate 43 L 45 L Pulse Rate [Right Pulse Oximeter] Respiratory Rate Blood Pressure 211/75 H Blood Pressure [Le ft Upper Arm] Pulse Oximetry 99 100 Oxygen Delivery Me thod 01/15/23 01:02 Temperature Pulse Rate Pulse Rate [Right Pulse Oximeter] Respiratory Rate Blood Pressure 211/75 H Blood Pressure [Le ft Upper Arm] Pulse Oximetry Oxygen Delivery Me thod Documenting provider has reviewed patient's vital signs: yes Course Course Hospital Course: On arrival, patient had an EKG which shows sinus bradycardia, ventricular rate of 46 beats per minute. No acute ST segment changes. No change compared to previous EKG from 1 week ago. Initial troponin is 0.01. Other labs are really fairly unremarkable. White blood cell count is elevated at 15 but she has been on steroids recently. Her D-dimer was 0.38 today, I did a chest x-ray which by my review was unrevealing. The radiologist read as negative. She did have a mass seen on CT a week ago and it was recommended that she follow this up with her primary care doctor for possible PET scan. She tells me that she did talk to her primary care doctor, that apparently she had a CT scan 3 weeks ago in [place] which she reports was normal, and she says therefore her primary doctor does not think she needs a PET scan. I asked if there was a planned to repeat a CT at some point to ensure that that area had cleared and she said she does not believe so. I have asked her to talk with her primary doctor again about this to make sure that some sort of follow-up is arranged. She was asymptomatic while here. Other labs are notable for mild hyponatremia with a sodium of 129, remainder of the metabolic panel is pretty unremarkable. Blood sugars 126. LFTs are normal with the exception of an alk-phos which is 151. She is status post cholecystectomy. CRP is 0.6. BNP is stable at 700. TSH is normal at 0.59. I repeated a troponin at 2:00 a.m. and it remains normal at 0.01. She remains asymptomatic at this time. She also remains hypertensive. I have talked with her about this; last week when she was here Dr. Kay had recommended that she increase her losartan from 25 mg daily to 50. She says that the commercial airline pilot in [facility] had decreased the dose, and she did not recall anything about Dr. Kay telling her to increase the dose so she has continu ed on 25 mg. She tells me that she had a conversation with someone from her commercial airline pilot's office today and they told her to continue her medications as usual. She says she has an appointment with her primary doctor in a couple of weeks. I am a little unclear on exactly what is been going on as an outpatient as I am suspicious that Cardiology would not have been accepting of a blood pressure of 200 systolic, and I am wondering if there is a little bit of memory issues at play. Her daughter is with her sky, I have reviewed everything with both of them. I would continue to recommend that she increase the losartan to 50 mg daily, follow up with her primary doctor, check her blood pressures once a day and write that down so that she and her primary doctor can continue to work on that. For sky, I do not find any evidence of acute coronary syndrome, PE, pneumonia, significant bronchospasm or other acute findings. Etiology of her chest pressure is unclear. Recommend that she discuss this with primary care in terms of further evaluation. Return at any time for severe symptoms. Also note that her heart rate has been slow for quite some time, she says that her commercial airline pilot in floor to told her that it might be slow on the sotalol. She is seemingly asymptomatic with regard to her bradycardia. Vital Signs Vital signs: Initial Vital Signs Temperature 97.8 F 01/14/23 22:40 Temperature Source Temporal Artery Scan 01/14/23 22:40 Pulse Rate 58 L 01/14/23 22:40 Pulse Rhythm Regular 01/14/23 22:40 Pulse Strength 3+ Normal 01/14/23 22:40 Respiratory Rate 16 01/14/23 22:40 Blood Pressure 180/81 H 01/14/23 22:40 Blood Pressure Mean 114 H 01/14/23 22:40 Blood Pressure Position Sitting 01/14/23 22:40 Pulse Oximetry 98 01/14/23 22:40 Oxygen Delivery Method Room Air 01/14/23 22:40 Vital Signs Temperature 97.8 F 01/14/23 22:40 Pulse Rate 58 L 01/14/23 22:40 Respiratory Rate 16 01/14/23 22:40 Blood Pressure 180/81 H 01/14/23 22:40 Pulse Oximetry 98 01/14/23 22:40 Oxygen Delivery Method Room Air 01/14/23 22:40 Temperature 97.8 F 04/20/23 22:40 Pulse Rate 45 L 01/15/23 01:00 Respiratory Rate 16 01/14/23 22:40 Blood Pressure 211/75 H 01/15/23 01:02 Pulse Oximetry 100 01/15/23 01:00 Oxygen Delivery Method Room Air 01/14/23 22:40 Medical Decision Making Lab Data Labs: Lab Results 01/14/23 01/14/23 01/14/23 Range/Units 23:00 23:01 23:20 WBC 15.12 H (4.50-11.00) K/uL RBC 3.64 L (4.00-5.20) m/uL Hgb 10.9 L (12.0-16.0) gm/dL Hct 32.6 L (33.0-51.0) % MCV 90 (80-100) fL MCH 30 (26-34) pg MCHC 33 (32-36) gm/dL RDW Coeff of Albert 14.4 (11.5-15.5) % Plt Count 329 (140-440) K/uL Neut % (Auto) 69.4 (42.0-72.0) % Lymph % (Auto) 24.0 (20-44) % Kern % (Auto) 6.1 (0.0-11.0) % Eos % (Auto) 0.1 (0.0-7.0) % Baso % (Auto) 0.0 (0.0-3.0) % Neut # (Auto) 10.50 H (1.7-7.0) K/uL Lymph # (Auto) 3.60 H (0.90-2.90) K/uL Kern # (Auto) 0.90 (0.00-0.90) K/UL Eos # (Auto) 0.00 (0.00-0.50) K/uL Baso # (Auto) 0.00 (0.00-0.30) K/uL D-Dimer Quant (PE/DVT) 0.38 (0.00-0.50) ug/ml Sodium 129 L (135-149) mmol/L Potassium 3.9 (3.6-5.1) mmol/L Chloride 101 (96-114) mmol/L Carbon Dioxide 22 (20-32) mmol/L BUN 39 H (7-30) mg/dL Creatinine 1.2 (0.5-1.5) mg/dL Estimated Creat Clear 31.21 Estimated GFR 45 ml/min Glucose 126 H (60-115) mg/dL Calcium 8.6 (8.4-10.6) mg/dL Total Bilirubin 0.3 (0.1-1.5) mg/dL Direct Bilirubin 0.1 (0.0-0.5) mg/dL AST 19 (12-35) U/L ALT 20 (4-35) U/L Alkaline Phosphatase 151 H (40-150) U/L C-Reactive Protein 0.6 (0.5-1.0) mg/dL NT-Pro-B Natriuret Pep 700 pg/mL Total Protein 6.5 (6.0-8.3) g/dL Albumin 3.5 (3.3-5.0) g/dL TSH 0.590 (0.270-4.200) uIU/mL SARS-CoV-2 (PCR) Negative SARS-CoV-2 (Negative) POC Troponin I 0.01 (0.01-0.04) ng/ml 01/15/23 Range/Units 00:49 WBC (4.50-11.00) K/uL RBC (4.00-5.20) m/uL Hgb (12.0-16.0) gm/dL Hct (33.0-51.0) % MCV (80-100) fL MCH (26-34) pg MCHC (32-36) gm/dL RDW Coeff of Albert (11.5-15.5) % Plt Count (140-440) K/uL Neut % (Auto) (42.0-72.0) % Lymph % (Auto) (20-44) % Kern % (Auto) (0.0-11.0) % Eos % (Auto) (0.0-7.0) % Baso % (Auto) (0.0-3.0) % Neut # (Auto) (1.7-7.0) K/uL Lymph # (Auto) (0.90-2.90) K/uL Kern # (Auto) (0.00-0.90) K/UL Eos # (Auto) (0.00-0.50) K/uL Baso # (Auto) (0.00-0.30) K/uL D-Dimer Quant (PE/DVT) (0.00-0.50) ug/ml Sodium (135-149) mmol/L Potassium (3.6-5.1) mmol/L Chloride (96-114) mmol/L Carbon Dioxide (20-32) mmol/L BUN (7-30) mg/dL Creatinine (0.5-1.5) mg/dL Estimated Creat Clear Estimated GFR ml/min Glucose (60-115) mg/dL Calcium (8.4-10.6) mg/dL Total Bilirubin (0.1-1.5) mg/dL Direct Bilirubin (0.0-0.5) mg/dL AST (12-35) U/L ALT (4-35) U/L Alkaline Phosphatase (40-150) U/L C-Reactive Protein (0.5-1.0) mg/dL NT-Pro-B Natriuret Pep pg/mL Total Protein (6.0-8.3) g/dL Albumin (3.3-5.0) g/dL TSH (0.270-4.200) uIU/mL SARS-CoV-2 (PCR) (Negative) POC Troponin I 0.01 (0.01-0.04) ng/ml Discharge Plan Discharge Clinical Impression: Chest pressure Patient Disposition: Home, Self-Care Condition: Improved Instructions: Chest Pain (DC), Chronic Hypertension (ED) Additional Instructions: I reviewed things with Dr. Kay, he did recommend last week that you increase her losartan to 50 mg daily, and I would agree that that is a reasonable next step. I would suggest to check your blood pressure once a day and write the number down so that you can review that with her primary doctor when you see her in a couple of weeks. Please mention to her as well that you been having chest pressure intermittently. If at any time you have severe symptoms, return to the emergency department. Prescriptions: No Action albuterol sulfate 2.5 mg /3 mL (0.083 %) solution for nebulization 2.5 mg continuous nebulization Q4H PRN (Reason: cough) sotalol 80 mg tablet 40 mg PO Q12H levothyroxine [Synthroid] 88 mcg tablet 88 mcg PO DAILY amlodipine 10 mg tablet 10 mg PO DAILY Hold Instructions: Doctor's Order losartan 25 mg tablet 25 mg PO DAILY Xarelto 20 mg tablet 20 mg PO QPM prednisone 20 mg tablet 10 - 40 mg PO DAILY Qty: 14 0RF Rx Instructions: 40 mg daily for four days, 20 mg daily for four days, 10 mg daily for four days then stop. Follow Up/Referrals: Irma Mandujano DO [Primary Care Provider] - Stand Alone Forms: [facility]
[2023-01-14 23:38] LABS: Troponin, Point-of-Care* 0.01 ng/ml (0.01-0.04)
[2023-01-14 23:43] LABS: Chloride* 101 mmol/L (96-114); Potassium* 3.9 mmol/L (3.6-5.1); Sodium* 129 mmol/L (135-149)
[2023-01-14 23:44] LABS: Albumin* 3.5 g/dL (3.3-5.0)
[2023-01-14 23:46] LABS: Creatinine* 1.2 mg/dL (0.5-1.5); Est. Creatinine Clearance* 31.21; Estimated Glomerular Filt Rate 45 ml/min
[2023-01-14 23:47] LABS: Aspartate Amino Transferase* 19 U/L (12-35); Bilirubin Direct* 0.1 mg/dL (0.0-0.5); Bilirubin Total* 0.3 mg/dL (0.1-1.5); Blood Urea Nitrogen* 39 mg/dL (7-30); Calcium* 8.6 mg/dL (8.4-10.6); Carbon Dioxide* 22 mmol/L (20-32); Glucose* 126 mg/dL (60-115); Total Protein* 6.5 g/dL (6.0-8.3)
[2023-01-14 23:48] LABS: Alanine Aminotransferase* 20 U/L (4-35); Alkaline Phosphatase* 151 U/L (40-150); D Dimer Quantitative* 0.38 ug/ml (0.00-0.50)
[2023-01-14 23:49] LABS: C Reactive Protein* 0.6 mg/dL (0.5-1.0)
[2023-01-15] VITALS (8 sets, daily range): BP systolic 167–211; BP diastolic 61–75; PULSE 42–45; O2SAT 98–100
[2023-01-15 00:02] LABS: SARS PCR* Negative SARS-CoV-2 (Negative)
[2023-01-15 00:03] LABS: NT Pro B Type NatriureticPept* 700 pg/mL
--- NOTE | 2023-01-15 00:30 | CRLHL7_ITS ---
For Patients: As a result of the Century Cures Act, medical imaging exams and procedure reports are released immediately into your electronic medical record. You may view this report before your referring provider. If you have questions, please contact your health care provider. INDICATION: Chest pain TECHNIQUE: Chest 2 views. COMPARISON: Chest radiograph and chest CT January 07, 2023 FINDINGS: Cardiovascular and mediastinum: Heart size and vasculature are normal in caliber and appearance. Mediastinum is within normal limits. Lungs and pleural spaces: Lungs are clear. No sign of infiltrate or mass. No sign of pleural effusion. No pneumothorax. Bones and soft tissues: Moderate degenerative changes throughout the thoracic spine. Surgical clips in the right upper quadrant. IMPRESSION: No sign of acute disease. Note that the masslike density seen at the right lung apex on the chest CT from January 07, 2023 is not clearly seen on this exam. Again, a PET-CT is recommended to exclude neoplasm. Dictated by Jessica Tang MD @ 01/15/2023 12:46:28 AM (Electronically Signed)
--- NOTE | 2023-01-15 00:58 | ED.NURSE ---
Patient continues to deny pain. Daughter at bedside. POC trop drawn at this time.
[2023-01-15 01:10] LABS: Troponin, Point-of-Care* 0.01 ng/ml (0.01-0.04)
--- NOTE | 2023-01-15 01:20 | ED.NURSE ---
SBP noted to be >200. Patient assisted to ambulate to the restroom. When ambulating patient reported shortness of breath and slight chest pressure. updated.
--- NOTE | 2023-01-15 01:20 | ED.NURSE ---
Patient assisted to ambulated to the restoom
== END 2023-01-15 01:42 | disposition home or self-care (01) ==
PROVIDERS: Emergency Provider Emergency Medicine; PCP Family Medicine
DX: R07.89 Other chest pain (principal)
CPT/HCPCS: 36415; 71046; 80048; 80076; 83880; 84443; 84484; 85025; 85379; 86140; 87635; 93005; 94761; 99284; 99285

== ENCOUNTER 2023-04-05 07:16 | Emergency (ER) | payer MEDICARE, BC, SELFPAY ==
[2023-04-05] VITALS (10 sets, daily range): BP systolic 147–173; BP diastolic 56–66; PULSE 53–62; RESP 18; TEMP 37.3; O2SAT 97–100; BMI 29.1
--- NOTE | 2023-04-05 07:41 | CRLHL7_ITS ---
For Patients: As a result of the Century Cures Act, medical imaging exams and procedure reports are released immediately into your electronic medical record. You may view this report before your referring provider. If you have questions, please contact your health care provider. INDICATION: WEAKNESS TECHNIQUE: Chest 2 views COMPARISON: None FINDINGS: Lung volumes are increased. Calcifications are noted in the aorta. Postop changes of the right upper quadrant. Tortuosity of the descending thoracic aorta. No infiltrate. No pleural effusion. Degenerative disc disease. IMPRESSION: COPD. No acute infiltrate. Dictated by Santos Cox MD @ 04/05/2023 8:56:56 AM (Electronically Signed)
--- NOTE | 2023-04-05 08:01 | ED.GENADULT ---
HPI - General Adult General Time Seen by Provider: 08:11 Date Seen: 04/05/23 Chief complaint: Weakness Stated complaint: dehydrated and weakness Time Seen by Provider: 04/05/23 08:00 Source: patient, RN notes reviewed and old records reviewed Mode of arrival: ambulatory Limitations: no limitations History of Present Illness HPI narrative: Patient is an 83-year-old female with history of AFib, hypertension presenting to the emergency department for weakness any headache. She states symptoms [place] She states it was hot outside yesterday and was standing outside all day. She states she thought she got dehydrated. Patient states she started to drink lots of Gatorade and water last night after the symptoms started. She has continued to feel nauseated and having headache. She describes the headache as pressure in the back of her head that wraps around her head like a band. Patient went to bed woke up this morning states she was not feeling any better. At this time she decided to come to the emergency department to be evaluated. Denies any abdominal pain but does states she feels nauseated. Denies chest pain, shortness of breath, fevers, chills, diarrhea, dysuria. She does states she felt confused last night but that has since resolved. Related Data Home Medications Medication Instructions Recorded Confirmed amlodipine 10 mg tablet 10 mg PO DAILY 01/07/23 01/14/23 levothyroxine 88 mcg tablet 88 mcg PO DAILY 01/07/23 04/05/23 (Synthroid) losartan 25 mg tablet 25 mg PO DAILY 01/07/23 04/05/23 rivaroxaban 20 mg tablet (Xarelto) 20 mg PO QPM 01/07/23 04/05/23 sotalol 80 mg tablet 40 mg PO Q12H 01/07/23 04/05/23 albuterol sulfate 2.5 mg/3 mL 2.5 mg continuous nebulization Q4H 01/14/23 01/14/23 (0.083 %) solution for nebulization PRN cough hydrochlorothiazide 12.5 mg capsule 12.5 mg PO DAILY 04/05/23 04/05/23 Previous Rx's Medication Instructions Recorded prednisone 20 mg tablet 10 - 40 mg (0.5 - 2 x 20 mg) PO 01/07/23 DAILY #14 tabs ondansetron 4 mg disintegrating 4 mg PO Q8H PRN nausea and 04/05/23 tablet vomiting #14 tabs Allergies Allergy/AdvReac Type Severity Reaction Status Date / Time WILLIAM Inhibitors Allergy Mild Hives Verified 01/14/23 22:53 hyoscyamine [From Levsin] Allergy Mild Hives Verified 01/14/23 22:53 apixaban [From Eliquis] AdvReac Intermediate Diarrhea Verified 01/14/23 22:53 lisinopril AdvReac Mild Cough Verified 01/14/23 22:53 metoprolol AdvReac Mild Cough Verified 01/14/23 22:53 Review of Systems Status of ROS: Reports: 10 or more systems reviewed and unremarkable except as noted in History and below [facility] Medical History Anticoagulation monitoring, INR range 2-3 ?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-10) Chest pain ?R07.9 - Chest pain, unspecified (ICD-10) Duodenal ulcer, unspecified as acute or chronic, without hemorrhage or perforation ?K26.9 - Duodenal ulcer, unspecified as acute or chronic, without hemorrhage or perforation (ICD-10) Edema ?R60.9 - Edema, unspecified (ICD-10) Esophageal reflux ?K21.9 - Gastro-esophageal reflux disease without esophagitis (ICD-10) Hiatal hernia ?K44.9 - Diaphragmatic hernia without obstruction or gangrene (ICD-10) Hyperlipidemia ?E78.5 - Hyperlipidemia, unspecified (ICD-10) Hypertension ?I10 - Essential (primary) hypertension (ICD-10) Hypothyroidism ?E03.9 - Hypothyroidism, unspecified (ICD-10) Intestinal infection due to campylobacter ?A04.5 - Campylobacter enteritis (ICD-10) 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 - Migraine with aura, not intractable, without status migrainosus (ICD-10) Osteopenia ?M85.80 - Other specified disorders of bone density and structure, unspecified site (ICD-10) Vitamin D deficiency ?E55.9 - Vitamin D deficiency, unspecified (ICD-10) Surgical History History of appendectomy ?Z90.49 - Acquired absence of other specified parts of digestive tract (ICD-10) History of breast augmentation ?Z98.82 - Breast implant status (ICD-10) History of cataract removal with insertion of prosthetic lens ?Z98.49 - Cataract extraction status, unspecified eye (ICD-10) ?Z96.1 - Presence of intraocular lens (ICD-10) History of cholecystectomy ?Z90.49 - Acquired absence of other specified parts of digestive tract (ICD-10) History of colonoscopy ?Z98.890 - Other specified postprocedural states (ICD-10) History of esophagogastroduodenoscopy (EGD) ?Z98.890 - Other specified postprocedural states (ICD-10) History of eye surgery ?Z98.890 - Other specified postprocedural states (ICD-10) History of knee replacement ?Z96.659 - Presence of unspecified artificial knee joint (ICD-10) History of lumbar discectomy ?Z98.890 - Other specified postprocedural states (ICD-10) History of surgery on lower extremity ?Z98.890 - Other specified postprocedural states (ICD-10) History of surgery on lower extremity ?Z98.890 - Other specified postprocedural states (ICD-10) S/P epidural steroid injection ?Z92.241 - Personal history of systemic steroid therapy (ICD-10) Social History Smoking Status: Never smoker Do you use any of these nicotine containing products: None Second hand tobacco smoke exposure: No How often do you have a drink containing alcohol: never AUDIT-C Alcohol total score: 0 Non-prescribed substance use: denies use service: No Exam Narrative: Exam Narrative: Const: Well-nourished, Well-developed, in mild distress Eyes: PERRL, no conjunctival injection, and symmetrical lids ENMT: Atraumatic external nose and ears. Moist mucous membranes. Neck: Symmetric, trachea midline, No thyromegaly. CVS: RRR, No murmurs or gallops. Peripheral pulses 2+ and equal in all extremities RESP: Unlabored respiratory effort. Clear to auscultation bilaterally. GI: Nontender/Nondistended, No rebound or guarding. MSK:Extremities w/o deformity, Normal Active ROM Skin: Warm, Dry. No rashes or lesions. Neuro: Normal Muscle tone, No focal neurological deficits. Psych: Awake, Alert, & Oriented x3. Appropriate mood and affect. Const: Vital Signs, click to edit/add: Vital Signs - 24 hr 04/05/23 07:31 04/05/23 08:13 04/05/23 08:39 Temperature 99.2 F Pulse Rate 57 L 61 Pulse Rate [Pulse Oximeter] 62 Respiratory Rate 18 Blood Pressure Blood Pressure [Ri ght Upper Arm] 173/65 H Pulse Oximetry 99 97 100 Oxygen Delivery Me thod Room Air 04/05/23 09:00 04/05/23 09:03 04/05/23 09:04 Temperature Pulse Rate 54 L 53 L 53 L Pulse Rate [Pulse Oximeter] Respiratory Rate Blood Pressure 150/63 H Blood Pressure [Ri ght Upper Arm] Pulse Oximetry 99 99 99 Oxygen Delivery Me thod 04/05/23 09:30 04/05/23 09:33 04/05/23 10:00 Temperature Pulse Rate 57 L 54 L 56 L Pulse Rate [Pulse Oximeter] Respiratory Rate Blood Pressure 147/56 H Blood Pressure [Ri ght Upper Arm] Pulse Oximetry 97 99 99 Oxygen Delivery Me thod 04/05/23 10:03 Temperature Pulse Rate 55 L Pulse Rate [Pulse Oximeter] Respiratory Rate Blood Pressure 164/66 H Blood Pressure [Ri ght Upper Arm] Pulse Oximetry 100 Oxygen Delivery Me thod Course Vital Signs Vital signs: Initial Vital Signs Temperature 99.2 F 04/05/23 07:31 Temperature Source Temporal Artery Scan 04/05/23 07:31 Pulse Rate 62 04/05/23 07:31 Respiratory Rate 18 04/05/23 07:31 Blood Pressure 173/65 H 04/05/23 07:31 Blood Pressure Mean 101 04/05/23 07:31 Blood Pressure Position Supine 04/05/23 07:31 Pulse Oximetry 99 04/05/23 07:31 Oxygen Delivery Method Room Air 04/05/23 07:31 Vital Signs Temperature 99.2 F 04/05/23 07:31 Pulse Rate 62 04/05/23 07:31 Respiratory Rate 18 04/05/23 07:31 Blood Pressure 173/65 H 04/05/23 07:31 Pulse Oximetry 99 04/05/23 07:31 Oxygen Delivery Method Room Air 04/05/23 07:31 Temperature 99.2 F 04/05/23 07:31 Pulse Rate 55 L 04/05/23 10:03 Respiratory Rate 18 04/05/23 07:31 Blood Pressure 164/66 H 04/05/23 10:03 Pulse Oximetry 100 04/05/23 10:03 Oxygen Delivery Method Room Air 04/05/23 07:31 Medical Decision Making MDM Narrative Medical decision making narrative: Patient is an 83-year-old female patient referred for headache, nausea, weakness. Descensus of nauseated and has a headache. Symptoms started last night after a long day in the sun she states she was feeling dehydrated. She has been drinking fluids but woke up this morning without much improvement in her symptoms. CBC, BMP, urinalysis, EKG, chest x-ray, troponin are all ordered. Patient was given Zofran for her nausea and normal saline for her dehydration Patient's EKG was interpreted by myself and showed sinus bradycardia, left axis deviation, no ST or T-wave abnormalities. Appears similar to previous EKGs done. Chest x-ray showed no acute abnormalities. She is not having any chest pain or shortness of breath. Patient's hemoglobin slightly low at 9.8. Previous so she was in the mid 10 range. She is not showing any active signs of bleeding at this time is up but complained of any bleeding. Does appear that she has been having downtrending hemoglobin but I do not this is the cause of her symptoms at this time. Patient's sodium was also at 130. Previously was 129. This also is unlikely to be a cause for his symptoms. Could be secondary to dehydration. BNP is slightly elevated but patient has no clear signs of CHF at this time. CRP is elevated when I am not sure why but there is no current signs of infections or other inflammatory processes. Urinalysis shows leukocyte esterase and moderate bacteria but there are no white blood cells, no nitrates and patient is not having any urinary complaints at this time. Not believe this is a UTI. After the patient's medication says headache has improved but is still there. We describes appears to be a tension headache. I do not believe further workup is necessary. Her nausea has since resolved she states overall she is feeling much better. Patient will be discharged home on her and her daughter agree with this plan. Informed to follow-up with her primary care provider. Differential Diagnosis Differential Diagnosis: Dehydration, UTI, electrolyte abnormality Medical Records Medical records reviewed: Yes I reviewed the patient's medical records Lab Data Lab results reviewed: Yes I reviewed the patient's lab results Labs: Lab Results 04/05/23 04/05/23 Range/Units 07:41 07:58 WBC 9.84 (4.50-11.00) K/uL RBC 3.26 L (4.00-5.20) m/uL Hgb 9.8 L (12.0-16.0) gm/dL Hct 29.6 L (33.0-51.0) % MCV 91 (80-100) fL MCH 30 (26-34) pg MCHC 33 (32-36) gm/dL RDW Coeff of Albert 13.6 (11.5-15.5) % Plt Count 306 (140-440) K/uL Neut % (Auto) 51.6 (42.0-72.0) % Lymph % (Auto) 32.2 (20-44) % Hidalgo % (Auto) 15.3 H (0.0-11.0) % Eos % (Auto) 0.4 (0.0-7.0) % Baso % (Auto) 0.4 (0.0-3.0) % Neut # (Auto) 5.07 (1.7-7.0) K/uL Lymph # (Auto) 3.17 H (0.90-2.90) K/uL Hidalgo # (Auto) 1.50 H (0.00-0.90) K/UL Eos # (Auto) 0.04 (0.00-0.50) K/uL Baso # (Auto) 0.04 (0.00-0.30) K/uL Abs Immat Gran (auto) 0.01 (0.00-0.30) K/uL Imm/Tot Granulo (auto) 0.1 % Sodium 130 L (135-149) mmol/L Potassium 3.3 L (3.6-5.1) mmol/L Chloride 98 (96-114) mmol/L Carbon Dioxide 24 (20-32) mmol/L BUN 19 (7-30) mg/dL Creatinine 1.1 (0.5-1.5) mg/dL Estimated Creat Clear 34.87 Estimated GFR 50 ml/min Glucose 103 (60-115) mg/dL Lactate 0.9 (0.5-1.9) mmol/L Calcium 8.6 (8.4-10.6) mg/dL C-Reactive Protein 3.4 H (0.5-1.0) mg/dL NT-Pro-B Natriuret Pep 1230 pg/mL Urine Color Yellow (Yellow) Urine Appearance Clear (Clear) Urine pH 7.0 (5.0-8.5) Ur Specific Melville 1.010 (1.000-1.030) Urine Protein Negative (Negative) Urine Glucose (UA) Negative (Negative) Urine Ketones Negative (Negative) Urine Blood Trace-lysed A (Negative) Urine Nitrite Negative (Negative) Urine Bilirubin Negative (Negative) Urine Urobilinogen 0.2 (0.2-1.0) Ur Leukocyte Esterase 1+ A (Negative) Urine RBC 0-2 (0-2) Urine WBC 2-5 (0-5) Urine WBC Clumps None (None) Ur Squamous Epith Cells Few (None-Few) Urine Bacteria Moderate A (None) SARS-CoV-2 (PCR) Negative SARS-CoV-2 (Negative) POC Troponin I 0.01 (0.01-0.04) ng/ml ECG Data Attestation: I personally reviewed and interpreted this ECG as follows: Prior ECG tracings: available for review Interpretation: Sinus bradycardia, left axis, normal intervals, no ST or T-wave abnormalities. Appears similar to previous EKGs Discharge Plan Discharge Clinical Impression: Nausea, Dehydration Headache Qualifiers: Headache type: tension-type Headache chronicity pattern: acute headache Intractability: not intractable Qualified Code(s): G44.209 - Tension-type headache, unspecified, not intractable Patient Disposition: Home, Self-Care Condition: Stable Instructions: Dehydration (DC) Additional Instructions: Follow-up with your primary care provider about your lab work. He did have a slightly low sodium and hemoglobin. Take Tylenol and ibuprofen for headache. Take the Zofran as directed. Prescriptions: New ondansetron 4 mg tablet,disintegrating 4 mg PO Q8H PRN (Reason: nausea and vomiting) Qty: 14 0RF No Action albuterol sulfate 2.5 mg /3 mL (0.083 %) solution for nebulization 2.5 mg continuous nebulization Q4H PRN (Reason: cough) hydrochlorothiazide 12.5 mg capsule 12.5 mg PO DAILY sotalol 80 mg tablet 40 mg PO Q12H levothyroxine [Synthroid] 88 mcg tablet 88 mcg PO DAILY amlodipine 10 mg tablet 10 mg PO DAILY Hold Instructions: Doctor's Order losartan 25 mg tablet 25 mg PO DAILY Xarelto 20 mg tablet 20 mg PO QPM prednisone 20 mg tablet 10 - 40 mg PO DAILY Qty: 14 0RF Rx Instructions: 40 mg daily for four days, 20 mg daily for four days, 10 mg daily for four days then stop. Follow Up/Referrals: Irma Mandujano DO [Primary Care Provider] - Stand Alone Forms: [facility] Info Instructions
[2023-04-05 08:15] LABS: Troponin, Point-of-Care* 0.01 ng/ml (0.01-0.04)
[2023-04-05 08:16] LABS: Lactate* 0.9 mmol/L (0.5-1.9)
[2023-04-05 08:18] LABS: Appearance Urine Clear (Clear); Bilirubin Urine Negative (Negative); Blood Urine Trace-lysed (Negative); Color Urine Yellow (Yellow); Glucose Urine Negative (Negative); Ketones Urine Negative (Negative); Leukocyte Esterase Urine 1+ (Negative); Nitrite Urine Negative (Negative); Protein Urine Negative (Negative); Urobilinogen Urine 0.2 (0.2-1.0)
[2023-04-05] MEDS: 0.9 % SODIUM CHLORIDE 500 ML 500 ML IV (08:22)
[2023-04-05] MEDS: ONDANSETRON 2 MG/ML inj 4 MG IVP (08:22)
[2023-04-05 08:25] LABS: Basophils Absolute Auto 0.04 K/uL (0.00-0.30); Basophils Percent Auto 0.4 % (0.0-3.0); Eosinophils Absolute Auto 0.04 K/uL (0.00-0.50); Eosinophils Percent Auto 0.4 % (0.0-7.0); Hematocrit 29.6 % (33.0-51.0); Hemoglobin* 9.8 gm/dL (12.0-16.0); Immature Granulocytes Abs Auto 0.01 K/uL (0.00-0.30); Immature Granulocytes Pct Auto 0.1 %; Lymphocytes Absolute Auto 3.17 K/uL (0.90-2.90); Lymphocytes Percent Auto 32.2 % (20-44); Mean Corpuscular HGB Conc 33 gm/dL (32-36); Mean Corpuscular Hemoglobin 30 pg (26-34); Mean Corpuscular Volume 91 fL (80-100); Monocytes Percent Auto 15.3 % (0.0-11.0); Neutrophils Absolute Auto 5.07 K/uL (1.7-7.0); Neutrophils Percent Auto 51.6 % (42.0-72.0); Platelet Count* 306 K/uL (140-440); RDW Coefficient of Variation % 13.6 % (11.5-15.5); Red Blood Count 3.26 m/uL (4.00-5.20); White Blood Count* 9.84 K/uL (4.50-11.00)
[2023-04-05 08:31] LABS: Bacteria Urine Moderate; RBC Urine 0-2 (0-2); Squamous Epithelial Cell Urine Few (None-Few)
[2023-04-05 08:40] LABS: Chloride* 98 mmol/L (96-114); Sodium* 130 mmol/L (135-149)
[2023-04-05 08:41] LABS: Potassium* 3.3 mmol/L (3.6-5.1)
[2023-04-05 08:43] LABS: Creatinine* 1.1 mg/dL (0.5-1.5); Est. Creatinine Clearance* 34.87; Estimated Glomerular Filt Rate 50 ml/min
[2023-04-05 08:44] LABS: Blood Urea Nitrogen* 19 mg/dL (7-30); Calcium* 8.6 mg/dL (8.4-10.6); Carbon Dioxide* 24 mmol/L (20-32); Glucose* 103 mg/dL (60-115)
[2023-04-05 08:47] LABS: C Reactive Protein* 3.4 mg/dL (0.5-1.0)
[2023-04-05 08:52] LABS: Slide Review Reflex No
[2023-04-05 09:14] LABS: NT Pro B Type NatriureticPept* 1230 pg/mL
[2023-04-05 09:19] LABS: SARS PCR* Negative SARS-CoV-2 (Negative)
== END 2023-04-05 10:22 | disposition home or self-care (01) ==
PROVIDERS: Family Medicine; Emergency Provider Student in an Organized Health Care Education/Training Program; PCP Family Medicine
DX: R11.0 Nausea (principal); E86.0 Dehydration; G44.209 Tension-type headache, unspecified, not intractable
CPT/HCPCS: 36415; 71046; 80048; 81003; 81015; 83605; 83880; 84484; 85025; 86140; 87086; 87186; 87635; 93005; 96374; 99284; J2405; J7120

== ENCOUNTER 2023-06-02 11:21 | Emergency (ER) | payer MEDICARE, BC, SELFPAY ==
[2023-06-02 11:25] VITALS: BP 188/74; PULSE 56; RESP 18; TEMP 35.6; O2SAT 100; BMI 30.5
--- NOTE | 2023-06-02 11:40 | CRLHL7_ITS ---
For Patients: As a result of the Century Cures Act, medical imaging exams and procedure reports are released immediately into your electronic medical record. You may view this report before your referring provider. If you have questions, please contact your health care provider. INDICATION: Fall 1 week ago, Xarelto, ongoing headache. COMPARISON: CT head 03/10/2022. TECHNIQUE: CT of the head without IV contrast. Coronal and sagittal reconstructions. FINDINGS: No intracranial hemorrhage, mass effect, or evidence of acute infarct. No midline shift. No abnormal extra-axial fluid collections. Mild to moderate generalized cerebral and cerebellar volume loss with associated ex vacuo dilation of the lateral ventricles. Mild chronic small vessel ischemic disease. Orbits and extraocular muscles are symmetric. The visualized paranasal sinuses and mastoid air cells are clear. No acute fracture identified. Soft tissues are unremarkable. IMPRESSION: 1. No acute intracranial findings. 2. Mild to moderate generalized cerebral volume loss and mild chronic small vessel ischemic disease. Please note that all CT scans at this facility use dose modulation, iterative reconstruction, and/or weight-based dosing when appropriate to reduce radiation dose to as low as reasonably achievable. Dictated by Belle Espinoza MD @ 06/02/2023 1:01:44 PM (Electronically Signed)
--- NOTE | 2023-06-02 11:41 | ED_ITS ---
HPI - General Adult General Date Seen: 06/02/23 Chief complaint: Fall/Minor Trauma Stated complaint: Fall, head injury Time Seen by Provider: 06/02/23 11:35 Source: patient Mode of arrival: ambulatory Limitations: no limitations History of Present Illness HPI narrative: Patient is an 83-year-old woman who takes Xarelto for atrial fibrillation. One week ago she was doing the prep for her colonoscopy, she says she was rushing to the bathroom when she slipped and fell hitting the right side of her head on the door. She did not have loss of consciousness, but has continued to have a head ache, more of a pressure sensation in the right side of her head. She says she saw her physical therapist yesterday who insisted that she come to the hospital today. She has not had any vomiting or mental status or neurologic changes. She has not had any bleeding from the ear or nasal drainage, she does say that she has had some pain that seems to radiate to the right ear. She does not have any neck pain. She has not been taking anything for her headache. Related Data Home Medications Medication Instructions Recorded Confirmed levothyroxine 88 mcg tablet 88 mcg PO DAILY 01/07/23 06/02/23 (Synthroid) losartan 25 mg tablet 50 mg PO DAILY 01/07/23 06/02/23 rivaroxaban 20 mg tablet (Xarelto) 20 mg PO QPM 01/07/23 06/02/23 albuterol sulfate 2.5 mg/3 mL 2.5 mg continuous nebulization Q4H 01/14/23 06/02/23 (0.083 %) solution for nebulization PRN cough hydrochlorothiazide 12.5 mg capsule 12.5 mg PO DAILY 04/05/23 06/02/23 Allergies Allergy/AdvReac Type Severity Reaction Status Date / Time WILLIAM Inhibitors Allergy Mild Hives Verified 06/02/23 11:31 hyoscyamine [From Levsin] Allergy Mild Hives Verified 06/02/23 11:31 apixaban [From Eliquis] AdvReac Intermediate Diarrhea Verified 06/02/23 11:31 lisinopril AdvReac Mild Cough Verified 06/02/23 11:31 metoprolol AdvReac Mild Cough Verified 06/02/23 11:31 Review of Systems Status of ROS: Reports: 6 or more systems reviewed and unremarkable except as noted in History and below [facility] Medical History Vitamin D deficiency ?E55.9 - Vitamin D deficiency, unspecified (ICD-10) Osteopenia ?M85.80 - Other specified disorders of bone density and structure, unspecified site (ICD-10) 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 - Migraine with aura, not intractable, without status migrainosus (ICD-10) Intestinal infection due to campylobacter ?A04.5 - Campylobacter enteritis (ICD-10) Hypothyroidism ?E03.9 - Hypothyroidism, unspecified (ICD-10) Hypertension ?I10 - Essential (primary) hypertension (ICD-10) Hyperlipidemia ?E78.5 - Hyperlipidemia, unspecified (ICD-10) Hiatal hernia ?K44.9 - Diaphragmatic hernia without obstruction or gangrene (ICD-10) Esophageal reflux ?K21.9 - Gastro-esophageal reflux disease without esophagitis (ICD-10) Edema ?R60.9 - Edema, unspecified (ICD-10) Duodenal ulcer, unspecified as acute or chronic, without hemorrhage or perforation ?K26.9 - Duodenal ulcer, unspecified as acute or chronic, without hemorrhage or perforation (ICD-10) Chest pain ?R07.9 - Chest pain, unspecified (ICD-10) Anticoagulation monitoring, INR range 2-3 ?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 (ICD-10) Surgical History History of eye surgery ?Z98.890 - Other specified postprocedural states (ICD-10) History of lumbar discectomy ?Z98.890 - Other specified postprocedural states (ICD-10) History of cholecystectomy ?Z90.49 - Acquired absence of other specified parts of digestive tract (ICD- 10) History of knee replacement ?Z96.659 - Presence of unspecified artificial knee joint (ICD-10) History of surgery on lower extremity ?Z98.890 - Other specified postprocedural states (ICD-10) History of surgery on lower extremity ?Z98.890 - Other specified postprocedural states (ICD-10) History of esophagogastroduodenoscopy (EGD) ?Z98.890 - Other specified postprocedural states (ICD-10) S/P epidural steroid injection ?Z92.241 - Personal history of systemic steroid therapy (ICD-10) History of colonoscopy ?Z98.890 - Other specified postprocedural states (ICD-10) History of cataract removal with insertion of prosthetic lens ?Z98.49 - Cataract extraction status, unspecified eye (ICD-10) ?Z96.1 - Presence of intraocular lens (ICD-10) History of breast augmentation ?Z98.82 - Breast implant status (ICD-10) History of appendectomy ?Z90.49 - Acquired absence of other specified parts of digestive tract (ICD- 10) Social History Smoking Status: Never smoker Do you use any of these nicotine containing products: None Second hand tobacco smoke exposure: No How often do you have a drink containing alcohol: never AUDIT-C Alcohol total score: 0 Non-prescribed substance use: denies use service: No Exam Narrative: Exam Narrative: Vital signs reviewed In general, alert, well-appearing elderly woman. Head: Normocephalic, atraumatic, no hematoma, abrasion, laceration. Eyes: Pupils are equal, reactive, extraocular movements are full. ENT: No facial trauma, TMs are normal bilaterally without hemotympanum. Nares are clear. Neck: Nontender to palpation. Neurologic: She is alert, conversant, face symmetric, moves all extremities equally, gait stable. Skin: Warm dry, well perfused. Const: Vital Signs, click to edit/add: Vital Signs - 24 hr 06/02/23 11:25 Temperature 96.1 F L Pulse Rate [Right Pulse Oximeter] 56 L Respiratory Rate 18 Blood Pressure [Ri ght Upper Arm] 188/74 H Pulse Oximetry 100 Oxygen Delivery Me thod Room Air Documenting provider has reviewed patient's vital signs: yes Course Course ED Course: Will go ahead and order a CT of the head to rule out any evidence of intracranial hemorrhage. She was off her Xarelto for a couple of days for her colonoscopy but went back on it the day after her procedure. She is certainly neurologically normal without any evidence of significant neurologic deficit here. By my review, head CT is negative. I have stressed to her that if she has any significant head trauma in the future she should come in right away rather than waiting a week. Okay to continue her Xarelto. Discussed that headache should clear on its own with time, Tylenol okay if needed. Primary care follow-up for any further concerns. Vital Signs Vital signs: Initial Vital Signs Temperature 96.1 F L 06/02/23 11:25 Temperature Source Temporal Artery Scan 06/02/23 11:25 Pulse Rate 56 L 06/02/23 11:25 Respiratory Rate 18 06/02/23 11:25 Blood Pressure 188/74 H 06/02/23 11:25 Blood Pressure Mean 112 H 06/02/23 11:25 Blood Pressure Position Sitting 06/02/23 11:25 Pulse Oximetry 100 06/02/23 11:25 Oxygen Delivery Method Room Air 06/02/23 11:25 Vital Signs Temperature 96.1 F L 06/02/23 11:25 Pulse Rate 56 L 06/02/23 11:25 Respiratory Rate 18 06/02/23 11:25 Blood Pressure 188/74 H 06/02/23 11:25 Pulse Oximetry 100 06/02/23 11:25 Oxygen Delivery Method Room Air 06/02/23 11:25 Temperature 96.1 F L 06/02/23 11:25 Pulse Rate 56 L 06/02/23 11:25 Respiratory Rate 18 06/02/23 11:25 Blood Pressure 188/74 H 06/02/23 11:25 Pulse Oximetry 100 06/02/23 11:25 Oxygen Delivery Method Room Air 06/02/23 11:25 Discharge Plan Discharge Clinical Impression: CHI (closed head injury) Patient Disposition: Home, Self-Care Condition: Stable Instructions: Head Injury (ED) Additional Instructions: Tylenol if needed. Anticipate gradual improvement of your symptoms. Primary care follow-up if needed. Prescriptions: No Action albuterol sulfate 2.5 mg /3 mL (0.083 %) solution for nebulization 2.5 mg continuous nebulization Q4H PRN (Reason: cough) hydrochlorothiazide 12.5 mg capsule 12.5 mg PO DAILY levothyroxine [Synthroid] 88 mcg tablet 88 mcg PO DAILY losartan 25 mg tablet 50 mg PO DAILY Xarelto 20 mg tablet 20 mg PO QPM Follow Up/Referrals: Irma Mandujano DO [Primary Care Provider] - Stand Alone Forms: [facility] Info Instructions
== END 2023-06-02 13:13 | disposition home or self-care (01) ==
PROVIDERS: Emergency Provider Emergency Medicine; PCP Family Medicine
DX: S09.90XA Unspecified injury of head, initial encounter (principal); W01.198A Fall on same level from slipping, tripping and stumbling with subsequent striking against other object, initial encounter; Y92.012 Bathroom of single-family (private) house as the place of occurrence of the external cause
CPT/HCPCS: 70450; 99284

== ENCOUNTER 2024-01-21 17:52 | Emergency (ER) | payer MEDICARE, BC, SELFPAY ==
[2024-01-21 18:04] VITALS: BP 204/76; PULSE 72; RESP 18; TEMP 36.4; O2SAT 99; BMI 28.1
--- NOTE | 2024-01-21 18:05 | ED_ITS ---
HPI - General Adult General Date Seen: 01/21/24 Chief complaint: Chest Pain Stated complaint: chest pain, high blood pressure Time Seen by Provider: 01/21/24 18:03 History of Present Illness HPI narrative: 83-year-old female with a past medical history of atrial fibrillation (previously on Xarelto for stroke prophylaxis, but stopped this when her due to cause), hypertension (stopped her blood pressure medications over the winter because she was having sciatic sec from them and she her blood pressure was fairly well controlled without them-apparently with consultation with her inker machine in [facility]) , history of duodenal ulcer, reflux, hypothyroidism, presenting to the ER today for elevated blood pressure. There was also report that she was having chest pain but she really says she was not. She was just anxious about her blood pressure Medical record indicates that she was seen in the ER on 01/14/23 for the elevated blood pressure and chest pain. BP at home was over 200. BP in the ER was 180/81 She has a primary care doctor here in [place] whom she sees in the summer. However she lives in [place] over the winter. She has been in [place] for the past 6 months and just came home last week. 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 Possibly stricture? ) So she has an indwelling stent in. She had a follow-up with [facility] a couple of days ago with a plan to take her back to the OR for stent removal and evaluation of the ureter to find out why it was blocked, next month. While she was in [facility] over the winter she stopped taking her Xarelto due to marked expense. She is now on baby aspirin for stroke prophylaxis. She also stopped her previous losartan blood pressure medication because it was causing side effects and her blood pressure was apparently fairly well controlled without a. She did switch to a plant based diet over the winter and lost of over 20 lb and blood pressure came down. She had her primary care checkup in the office today and was surprised to see her blood pressure was measuring about 185 systolic. Her doctor told her she was concerned about it and that they would need to watch it. This evening she was at home and she was worried about her blood pressure so she decided she would check it. It measured over 200 systolic and around 190 or 100 diastolic. With this she became anxious and started to worry. She started to have a little discomfort in her chest so she called the primary clinic triage nurse. She was told to come to the ER because of her markedly elevated blood pressure. Now that she is here she says she feels fine. She does have some pain in the right side of her low back which may be her chronic arthritis or possibly due to rubbing from her stent. She says she does not really think she wanted to come to the ER but the triage nurse made her come. No other recent chest pains. No trouble breathing. No swelling in her legs. No headache. No blurry vision. No stroke symptoms or numbness or tingling weakness in her arms or legs. Related Data Home Medications Medication Instructions Recorded Confirmed levothyroxine 88 mcg tablet 88 mcg PO DAILY 01/07/23 06/02/23 (Synthroid) losartan 25 mg tablet 50 mg PO DAILY 01/07/23 06/02/23 rivaroxaban 20 mg tablet (Xarelto) 20 mg PO QPM 01/07/23 06/02/23 albuterol sulfate 2.5 mg/3 mL 2.5 mg continuous nebulization Q4H 01/14/23 06/02/23 (0.083 %) solution for nebulization PRN cough hydrochlorothiazide 12.5 mg capsule 12.5 mg PO DAILY 04/05/23 06/02/23 Allergies Allergy/AdvReac Type Severity Reaction Status Date / Time WILLIAM Inhibitors Allergy Mild Hives Verified 06/02/23 11:31 hyoscyamine [From Levsin] Allergy Mild Hives Verified 06/02/23 11:31 apixaban [From Eliquis] AdvReac Intermediate Diarrhea Verified 06/02/23 11:31 lisinopril AdvReac Mild Cough Verified 06/02/23 11:31 metoprolol AdvReac Mild Cough Verified 06/02/23 11:31 [facility] Medical History Vitamin D deficiency ?E55.9 - Vitamin D deficiency, unspecified (ICD-10) Osteopenia ?M85.80 - Other specified disorders of bone density and structure, unspecified site (ICD-10) 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 - Migraine with aura, not intractable, without status migrainosus (ICD-10) Intestinal infection due to campylobacter ?A04.5 - Campylobacter enteritis (ICD-10) Hypothyroidism ?E03.9 - Hypothyroidism, unspecified (ICD-10) Hypertension ?I10 - Essential (primary) hypertension (ICD-10) Hyperlipidemia ?E78.5 - Hyperlipidemia, unspecified (ICD-10) Hiatal hernia ?K44.9 - Diaphragmatic hernia without obstruction or gangrene (ICD-10) Esophageal reflux ?K21.9 - Gastro-esophageal reflux disease without esophagitis (ICD-10) Edema ?R60.9 - Edema, unspecified (ICD-10) Duodenal ulcer, unspecified as acute or chronic, without hemorrhage or perforation ?K26.9 - Duodenal ulcer, unspecified as acute or chronic, without hemorrhage or perforation (ICD-10) Chest pain ?R07.9 - Chest pain, unspecified (ICD-10) Anticoagulation monitoring, INR range 2-3 ?Z79.01 - senior living (current) use of anticoagulants (ICD-10) Surgical History History of eye surgery ?Z98.890 - Other specified postprocedural states (ICD-10) History of lumbar discectomy ?Z98.890 - Other specified postprocedural states (ICD-10) History of cholecystectomy ?Z90.49 - Acquired absence of other specified parts of digestive tract (ICD- 10) History of knee replacement ?Z96.659 - Presence of unspecified artificial knee joint (ICD-10) History of surgery on lower extremity ?Z98.890 - Other specified postprocedural states (ICD-10) History of surgery on lower extremity ?Z98.890 - Other specified postprocedural states (ICD-10) History of esophagogastroduodenoscopy (EGD) ?Z98.890 - Other specified postprocedural states (ICD-10) S/P epidural steroid injection ?Z92.241 - Personal history of systemic steroid therapy (ICD-10) History of colonoscopy ?Z98.890 - Other specified postprocedural states (ICD-10) History of cataract removal with insertion of prosthetic lens ?Z98.49 - Cataract extraction status, unspecified eye (ICD-10) ?Z96.1 - Presence of intraocular lens (ICD-10) History of breast augmentation ?Z98.82 - Breast implant status (ICD-10) History of appendectomy ?Z90.49 - Acquired absence of other specified parts of digestive tract (ICD- 10) Social History Smoking Status: Never smoker Do you use any of these nicotine containing products: None Second hand tobacco smoke exposure: No How often do you have a drink containing alcohol: never AUDIT-C Alcohol total score: 0 Non-prescribed substance use: denies use service: No Exam Narrative: Exam Narrative: Constitutional: Appears well-developed and well-nourished. Alert. Conversant. Non toxic. HENT: Head: Atraumatic. Nose: Nose normal. Mouth/Throat: Oral mucosa is clear and moist. no trismus. Pharynx normal. Eyes: Conjunctivae normal. EOM normal. Pupils equal, round, and reactive to light. No scleral icterus. Neck: Normal range of motion. Neck supple. No tracheal deviation present. Cardiovascular: Normal rate, regular rhythm. No gallop. No friction rub. No murmur heard. Symmetric radial artery pulses Pulmonary/Chest: Effort normal. No stridor. No respiratory distress. No wheezes. No rales. No rhonchi . No tenderness. Abdominal: Soft. Bowel sounds normal. No distension. No mass. No tenderness. No rebound. No guarding. No CVA tenderness. No bruising. Musculoskeletal: RUE: Normal range of motion. No tenderness. No deformity LUE: Normal range of motion. No tenderness. No deformity RLE: Normal range of motion. No edema. No tenderness. No deformity LLE: Normal range of motion. No edema. No tenderness. No deformity Neurological: Alert and oriented to person, place, and time. Normal strength. CN II-VII intact. No sensory deficit. GCS eye subscore is 4. GCS verbal subscore is 5. GCS motor subscore is 6. Normal coordination Skin: Skin is warm and dry. No rash noted. No pallor. Normal capillary refill. Psychiatric: Normal mood. Normal affect. Const: Vital Signs, click to edit/add: Vital Signs - 24 hr 01/21/24 18:04 01/21/24 18:46 01/21/24 19:00 Temperature 97.5 F L Pulse Rate 70 60 Pulse Rate [Pulse Oximeter] 72 Respiratory Rate 18 Blood Pressure Blood Pressure [Le ft Upper Arm] 204/76 H Pulse Oximetry 99 100 100 Oxygen Delivery Me thod Room Air 01/21/24 19:15 01/21/24 19:28 01/21/24 19:30 Temperature Pulse Rate 58 L 61 59 L Pulse Rate [Pulse Oximeter] Respiratory Rate Blood Pressure 190/77 H Blood Pressure [Le ft Upper Arm] Pulse Oximetry 99 99 100 Oxygen Delivery Me thod Course Vital Signs Vital signs: Initial Vital Signs Temperature 97.5 F L 01/21/24 18:04 Temperature Source Temporal Artery Scan 01/21/24 18:04 Pulse Rate 72 01/21/24 18:04 Respiratory Rate 18 01/21/24 18:04 Blood Pressure 204/76 H 01/21/24 18:04 Blood Pressure Mean 118 H 01/21/24 18:04 Blood Pressure Position Sitting 01/21/24 18:04 Pulse Oximetry 99 01/21/24 18:04 Oxygen Delivery Method Room Air 01/21/24 18:04 Vital Signs Temperature 97.5 F L 01/21/24 18:04 Pulse Rate 72 01/21/24 18:04 Respiratory Rate 18 01/21/24 18:04 Blood Pressure 204/76 H 01/21/24 18:04 Pulse Oximetry 99 01/21/24 18:04 Oxygen Delivery Method Room Air 01/21/24 18:04 Temperature 97.5 F L 01/21/24 18:04 Pulse Rate 59 L 01/21/24 19:30 Respiratory Rate 18 01/21/24 18:04 Blood Pressure 190/77 H 01/21/24 19:28 Pulse Oximetry 100 01/21/24 19:30 Oxygen Delivery Method Room Air 01/21/24 18:04 Medical Decision Making MDM Narrative Medical decision making narrative: This patient is referred by her primary clinic triage nurse to the ER for evaluation of elevated blood pressure. She has a known history of hypertension in the past, but it was apparently more well controlled over the winter so she stopped her previous blood pressure medications. She had told the phone triage nurse that she was having a little bit of chest pressure but she says she really was not having pain and she is confident that her pressure was more just anxiety rather than actual pain. No other chest pains lately. No headache, neurologic deficits. Initially the patient was really reluctant to be here in the ER at all but she did agree to a workup with EKG, screening troponin, and BNP. The workup here is negative and the patient does not have any clinical, laboratory, ecg or historical signs of end-organ dysfunction. No evidence for AZ. serial troponin would be definitive to rule out AZ, but at this point the patient is wanting to get home with her daughter. At this point I have overall very clinical suspicion for active ACS. There is no signs of hypertensive emergency or urgency. Supportive outpatient management is therefore indicated with close follow-up of primary care physician. Patient is reluctant to restart on any blood pressure medications because her blood pressure had been pretty well controlled over the recent months. We wonder if her blood pressure might be up today because she is still having some right flank pain from her stent and she is worried about that. encouraged serial blood pressure monitoring at home to aid primary in decision making regarding hypertension. Lab Data Labs: Lab Results 01/21/24 Range/Units 18:46 Sodium 137 (135-149) mmol/L Potassium 4.2 (3.6-5.1) mmol/L Chloride 104 (96-114) mmol/L Carbon Dioxide 27 (20-32) mmol/L Anion Gap 6 L (7-15) mEq/L BUN 19 (7-30) mg/dL Creatinine 1.0 (0.5-1.5) mg/dL Estimated Creat Clear 43.00 Estimated GFR 56 ml/min Glucose 99 (60-115) mg/dL Calcium 9.0 (8.4-10.6) mg/dL Troponin I < 0.01 L (0.01-0.04) ng/mL Discharge Plan Discharge Clinical Impression: BP (high blood pressure) Patient Disposition: Home, Self-Care Condition: Stable Instructions: Hypertension (ED) Additional Instructions: Please measure and record your blood pressure 1 time per day over the next few days to see where your blood pressure med measurements are going. Bring your chorea cording is with you to your doctor's office and have a checkup with your regular doctor next week. If her blood pressure is running persistently high you may need to start on some blood pressure medications again. If you have any worsening symptoms such as bad chest pain, shortness of breath, headache, trouble speaking or numbness or tingling in your arms or legs, return to the ER immediately to be rechecked. Prescriptions: No Action albuterol sulfate 2.5 mg /3 mL (0.083 %) solution for nebulization 2.5 mg continuous nebulization Q4H PRN (Reason: cough) hydrochlorothiazide 12.5 mg capsule 12.5 mg PO DAILY levothyroxine [Synthroid] 88 mcg tablet 88 mcg PO DAILY losartan 25 mg tablet 50 mg PO DAILY Xarelto 20 mg tablet 20 mg PO QPM Follow Up/Referrals: Irma Mandujano DO [Primary Care Provider] - Stand Alone Forms: [facility] Info Instructions
[2024-01-21 18:46] VITALS: PULSE 70; O2SAT 100
[2024-01-21 19:00] VITALS: PULSE 60; O2SAT 100
[2024-01-21 19:05] LABS: Chloride* 104 mmol/L (96-114); Sodium* 137 mmol/L (135-149)
[2024-01-21 19:06] LABS: Potassium* 4.2 mmol/L (3.6-5.1)
[2024-01-21 19:08] LABS: Anion Gap 6 mEq/L (7-15); Carbon Dioxide* 27 mmol/L (20-32); Estimated Glomerular Filt Rate 56 ml/min
[2024-01-21 19:09] LABS: Blood Urea Nitrogen* 19 mg/dL (7-30); Glucose* 99 mg/dL (60-115)
[2024-01-21 19:15] VITALS: PULSE 58; O2SAT 99
[2024-01-21 19:21] LABS: Troponin I* < 0.01 ng/mL (0.01-0.04)
[2024-01-21 19:28] VITALS: BP 190/77; PULSE 61; O2SAT 99
[2024-01-21 19:30] VITALS: PULSE 59; O2SAT 100
== END 2024-01-21 19:37 | disposition home or self-care (01) ==
PROVIDERS: Emergency Provider Emergency Medicine; PCP Family Medicine
DX: I10 Essential (primary) hypertension (principal)
CPT/HCPCS: 36415; 80048; 84484; 93005; 99283; 99284

== ENCOUNTER 2024-02-12 16:34 | Emergency (ER) | payer MEDICARE, BC, SELFPAY ==
[2024-02-12] VITALS (19 sets, daily range): BP systolic 171–234; BP diastolic 63–96; PULSE 65–92; RESP 16–18; TEMP 36.8; O2SAT 97–100
--- NOTE | 2024-02-12 16:51 | CT_ITS ---
Patient: THEODORA ALEMAN Facility:?[facility] RIS Patient ID:?[id number] Site Patient ID:?[id number] Site :?1940 Study:?CT-Head WITHOUT STROKE CODE-02/12/2024 5:10:21 PM Ordering Physician:LLOYD Final Report: INDICATION: Difficulty speaking. Word finding. COMPARISON: 06/02/2023. TECHNIQUE: Noncontrast CT head. FINDINGS: Moderate generalized volume loss. Stable patchy low-attenuation change within the white matter of both cerebral hemispheres consistent with chronic deep white matter small vessel ischemic changes. No acute intracranial hemorrhage, acute infarct, mass effect, or fracture. No midline shift. Compensatory mild dilatation ventricular system. Normal calvarium and skull base. Visualized paranasal sinuses mastoid air cells are clear. Visualized orbits are unremarkable. IMPRESSION: 1. No interval change. 2. No acute intracranial abnormality. 3. Moderate generalized cerebral volume loss. Chronic deep white matter small vessel ischemic changes Findings texted directly to Dr. Arnold at 5:31 p.m. Please note that all CT scans at this facility use dose modulation, iterative reconstruction, and/or weight-based dosing when appropriate to reduce radiation dose to as low as reasonably achievable. Dictated by Shabbir Damon MD @ 02/12/2024 5:32:28 PM Signed by:?Shabbir Damon MD @02/12/2024 5:32:28 PM (Electronic Signature)
--- NOTE | 2024-02-12 16:51 | CT_ITS ---
Patient: THEODORA ALEMAN Facility:?[facility] RIS Patient ID:?[id number] Site Patient ID:?[id number]. Site :?1940 Study:?CT-Neck Angio W/ 95CC ISOVUE 370 STROKE CODE-02/12/2024 5:31:47 PM Ordering Physician:LLOYD Final Report: INDICATION: Acute stroke, word-finding difficulty. TECHNIQUE: CTA neck with contrast bolus tracking, 3D angiographic rendering using maximum intensity projection (MIP) and images permanently archived. FINDINGS: The carotid and vertebral arteries are extremely tortuous and redundant. There is no significant carotid artery stenosis or dissection. There is no significant vertebral artery stenosis or dissection. The soft tissues of the neck are within normal limits. The cervical spine is in normal alignment. Degenerative changes are noted in the cervical spine. There is extensive scarring in the lung apices. A 2.5 cm spiculated opacity is present in the right lung apex. IMPRESSION: 1. No significant carotid or vertebral artery stenosis or dissection. 2. Spiculated opacity in the right lung apex concerning for neoplasm. Recommend dedicated chest CT for further evaluation. Discussed with Dr. Asif at 8:45 p.m. on 02/12/2024. Please note that all CT scans at this facility use dose modulation, iterative reconstruction, and/or weight-based dosing when appropriate to reduce radiation dose to as low as reasonably achievable. Dictated by Sukh Ceja MD @ 02/12/2024 8:40:15 PM Signed by:?Sukh Ceja MD @02/12/2024 8:44:19 PM (Electronic Signature)
--- NOTE | 2024-02-12 16:51 | CT_ITS ---
Patient: THEODORA ALEMAN Facility:?[facility] RIS Patient ID:?[id number] Site Patient ID:?[id number]. Site :?1940 Study:?CT-Head Angio W/ 95CC ISOVUE 370 STROKE CODE-02/12/2024 5:31:44 PM Ordering Physician:LLOYD Final Report: INDICATION: Acute stroke, word-finding difficulty. TECHNIQUE: CTA head with contrast bolus tracking, 3D angiographic rendering using maximum intensity projection (MIP) and images permanently archived. FINDINGS: There is scattered intracranial atherosclerotic disease, particularly involving the anterior cerebral arteries and distal MCA branches. There is no large vessel occlusion. No aneurysm is identified. IMPRESSION: Intracranial atherosclerotic disease as described; no large vessel occlusion. Please note that all CT scans at this facility use dose modulation, iterative reconstruction, and/or weight-based dosing when appropriate to reduce radiation dose to as low as reasonably achievable. Dictated by Sukh Ceja MD @ 02/12/2024 8:36:53 PM Signed by:?Sukh Ceja MD @02/12/2024 8:36:53 PM (Electronic Signature)
[2024-02-12 17:01] LABS: Basophils Absolute Auto 0.03 K/uL (0.00-0.30); Basophils Percent Auto 0.3 % (0.0-3.0); Eosinophils Absolute Auto 0.18 K/uL (0.00-0.50); Eosinophils Percent Auto 2.1 % (0.0-7.0); Hematocrit 33.3 % (33.0-51.0); Hemoglobin* 10.7 gm/dL (12.0-16.0); Lymphocytes Percent Auto 61.7 % (20-44); Mean Corpuscular HGB Conc 32 gm/dL (32-36); Mean Corpuscular Hemoglobin 29 pg (26-34); Mean Corpuscular Volume 91 fL (80-100); Monocytes Percent Auto 10.5 % (0.0-11.0); Neutrophils Percent Auto 25.4 % (42.0-72.0); Platelet Count* 347 K/uL (140-440); RDW Coefficient of Variation % 15.4 % (11.5-15.5); Red Blood Count 3.65 m/uL (4.00-5.20)
[2024-02-12 17:11] LABS: Slide Review Reflex No
--- NOTE | 2024-02-12 17:11 | ED_ITS ---
HPI - Neuro Symptoms/Deficit General Date Seen: 02/12/24 Chief Complaint: Neuro Symptoms/Altered Deficit Stated Complaint: Difficulty speaking Time Seen by Provider: 02/12/24 16:40 Source: patient and family (Daughter) Mode of arrival: ambulatory Limitations: no limitations History of Present Illness HPI Narrative: Patient is an 83-year-old female with a history of hypertension and, recent ureter stent placed while in [place] presenting for difficulty with word finding. Patient is here with her daughter. Patient daughter initially states she was last known well was 09:00 but the patient then later stated last known well was 12 30 with her friend was with her. Patient does states she is feeling completely fine up until she laid down about an hour prior to arrival and just was not feeling well at that time. Her daughter then arrived at the patient's house and patient was having issues with word finding. Was able ambulate in without issues. Denies fevers, chills, chest pain, shortness of breath, headache, lightheadedness, dizziness, weakness, numbness. She did have similar symptoms 10 years ago in this was initially thought to be a TIA but was eventually thought to be related to the patient not sleeping well for a week due to her being very sick. Her daughter also is wondering if dehydration and overheating could be involved due to the patient's house being very warm. Related Data Home Medications Medication Instructions Recorded Confirmed levothyroxine 88 mcg tablet 88 mcg PO DAILY 01/07/23 02/12/24 (Synthroid) losartan 25 mg tablet 50 mg PO DAILY 01/07/23 06/02/23 rivaroxaban 20 mg tablet (Xarelto) 20 mg PO QPM 01/07/23 06/02/23 albuterol sulfate 2.5 mg/3 mL 2.5 mg continuous nebulization Q4H 01/14/23 06/02/23 (0.083 %) solution for nebulization PRN cough hydrochlorothiazide 12.5 mg capsule 12.5 mg PO DAILY 04/05/23 06/02/23 Allergies Allergy/AdvReac Type Severity Reaction Status Date / Time WILLIAM Inhibitors Allergy Mild Hives Verified 02/12/24 17:24 hyoscyamine [From Levsin] Allergy Mild Hives Verified 02/12/24 17:24 apixaban [From Eliquis] AdvReac Intermediate Diarrhea Verified 02/12/24 17:24 lisinopril AdvReac Mild Cough Verified 02/12/24 17:24 metoprolol AdvReac Mild Cough Verified 02/12/24 17:24 [facility] Medical History Vitamin D deficiency ?E55.9 - Vitamin D deficiency, unspecified (ICD-10) Osteopenia ?M85.80 - Other specified disorders of bone density and structure, unspecified site (ICD-10) 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 - Migraine with aura, not intractable, without status migrainosus (ICD-10) Intestinal infection due to campylobacter ?A04.5 - Campylobacter enteritis (ICD-10) Hypothyroidism ?E03.9 - Hypothyroidism, unspecified (ICD-10) Hypertension ?I10 - Essential (primary) hypertension (ICD-10) Hyperlipidemia ?E78.5 - Hyperlipidemia, unspecified (ICD-10) Hiatal hernia ?K44.9 - Diaphragmatic hernia without obstruction or gangrene (ICD-10) Esophageal reflux ?K21.9 - Gastro-esophageal reflux disease without esophagitis (ICD-10) Edema ?R60.9 - Edema, unspecified (ICD-10) Duodenal ulcer, unspecified as acute or chronic, without hemorrhage or perforation ?K26.9 - Duodenal ulcer, unspecified as acute or chronic, without hemorrhage or perforation (ICD-10) Chest pain ?R07.9 - Chest pain, unspecified (ICD-10) Anticoagulation monitoring, INR range 2-3 ?Z79.01 - FDC (current) use of anticoagulants (ICD-10) Surgical History History of eye surgery ?Z98.890 - Other specified postprocedural states (ICD-10) History of lumbar discectomy ?Z98.890 - Other specified postprocedural states (ICD-10) History of cholecystectomy ?Z90.49 - Acquired absence of other specified parts of digestive tract (ICD- 10) History of knee replacement ?Z96.659 - Presence of unspecified artificial knee joint (ICD-10) History of surgery on lower extremity ?Z98.890 - Other specified postprocedural states (ICD-10) History of surgery on lower extremity ?Z98.890 - Other specified postprocedural states (ICD-10) History of esophagogastroduodenoscopy (EGD) ?Z98.890 - Other specified postprocedural states (ICD-10) S/P epidural steroid injection ?Z92.241 - Personal history of systemic steroid therapy (ICD-10) History of colonoscopy ?Z98.890 - Other specified postprocedural states (ICD-10) History of cataract removal with insertion of prosthetic lens ?Z98.49 - Cataract extraction status, unspecified eye (ICD-10) ?Z96.1 - Presence of intraocular lens (ICD-10) History of breast augmentation ?Z98.82 - Breast implant status (ICD-10) History of appendectomy ?Z90.49 - Acquired absence of other specified parts of digestive tract (ICD- 10) Social History Smoking Status: Never smoker Do you use any of these nicotine containing products: None Second hand tobacco smoke exposure: No How often do you have a drink containing alcohol: never AUDIT-C Alcohol total score: 0 Non-prescribed substance use: denies use service: No Exam Narrative: Exam Narrative: Const: Well-nourished, Well-developed, in no distress Eyes: PERRL, no conjunctival injection, and symmetrical lids HENT: Atraumatic external nose and ears. Moist mucous membranes. Neck: Symmetric, trachea midline, No thyromegaly. CVS: RRR, No murmurs or gallops. Peripheral pulses 2+ and equal in all extremities RESP: Unlabored respiratory effort. Clear to auscultation bilaterally. GI: Nontender/Nondistended, No rebound or guarding. MSK:Extremities w/o deformity, Normal Active ROM Skin: Warm, Dry. No rashes or lesions. Neuro: Normal Muscle tone, Cranial nerves 2-12 grossly intact, normal [id number], normal [id number], normal gait, normal strength 5/5 upper lower extremities bilaterally, normal sensation upper and lower extremities bilaterally, normal rapid alternating movements. Psych: Awake, Alert, & Oriented x3. Appropriate mood and affect. Const: Vital Signs, click to edit/add: Vital Signs - 24 hr 02/12/24 16:41 02/12/24 16:42 02/12/24 16:43 Temperature 98.3 F Pulse Rate 87 92 Pulse Rate [Right Pulse Oximeter] 87 Respiratory Rate 18 Blood Pressure 234/96 H Blood Pressure [Ri ght Upper Arm] 234/96 H Pulse Oximetry 100 100 100 Oxygen Delivery Me thod Room Air Room Air 02/12/24 16:45 02/12/24 16:46 02/12/24 17:00 Temperature Pulse Rate 82 80 69 Pulse Rate [Right Pulse Oximeter] Respiratory Rate Blood Pressure 232/87 H Blood Pressure [Ri ght Upper Arm] Pulse Oximetry 100 100 100 Oxygen Delivery Me thod Room Air 02/12/24 17:12 02/12/24 17:15 02/12/24 17:17 Temperature Pulse Rate 77 72 74 Pulse Rate [Right Pulse Oximeter] Respiratory Rate 16 16 Blood Pressure 195/70 H 184/72 H Blood Pressure [Ri ght Upper Arm] Pulse Oximetry 100 100 100 Oxygen Delivery Me thod 02/12/24 17:37 02/12/24 17:38 02/12/24 17:45 Temperature Pulse Rate 78 77 72 Pulse Rate [Right Pulse Oximeter] Respiratory Rate 16 Blood Pressure 188/72 H Blood Pressure [Ri ght Upper Arm] Pulse Oximetry 100 100 99 Oxygen Delivery Me thod 02/12/24 17:47 02/12/24 18:00 02/12/24 18:02 Temperature Pulse Rate 74 65 67 Pulse Rate [Right Pulse Oximeter] Respiratory Rate 16 16 Blood Pressure 183/67 H 180/63 H Blood Pressure [Ri ght Upper Arm] Pulse Oximetry 99 98 98 Oxygen Delivery Me thod 02/12/24 18:15 02/12/24 18:17 02/12/24 18:30 Temperature Pulse Rate 66 70 65 Pulse Rate [Right Pulse Oximeter] Respiratory Rate 16 Blood Pressure 187/67 H Blood Pressure [Ri ght Upper Arm] Pulse Oximetry 100 99 98 Oxygen Delivery Me thod 02/12/24 18:32 Temperature Pulse Rate 66 Pulse Rate [Right Pulse Oximeter] Respiratory Rate 16 Blood Pressure 171/65 H Blood Pressure [Ri ght Upper Arm] Pulse Oximetry 97 Oxygen Delivery Me thod Room Air Course Vital Signs Vital signs: Initial Vital Signs Pulse Rate 87 02/12/24 16:41 Pulse Oximetry 100 02/12/24 16:41 Vital Signs Pulse Rate 87 02/12/24 16:41 Pulse Oximetry 100 02/12/24 16:41 Temperature 98.3 F 02/12/24 16:43 Pulse Rate 66 02/12/24 18:32 Respiratory Rate 16 02/12/24 18:32 Blood Pressure 171/65 H 02/12/24 18:32 Pulse Oximetry 97 02/12/24 18:32 Oxygen Delivery Method Room Air 02/12/24 18:32 Medications Administered Medications: Discontinued Medications Generic Name Dose Route Start Last Admin Trade Name Julio PRN Reason Stop Dose Admin Acetaminophen 1,000 mg 02/12/24 18:14 02/12/24 18:20 Acetaminophen 500 Mg Tablet PO 02/12/24 18:15 1,000 mg ONCE ONE Administration Ketorolac Tromethamine 15 mg 02/12/24 18:15 02/12/24 18:47 Ketorolac 15 Mg/Ml Inj IVP 02/12/24 18:16 15 mg ONCE ONE Administration Labetalol HCl 5 mg 02/12/24 17:05 02/12/24 18:47 Labetalol Hcl 5 Mg/Ml Inj IVP 02/12/24 17:06 Not Given ONCE ONE MDM - Neuro Symptoms/Deficit MDM Narrative Medical decision making narrative: Patient is an 83-year-old female presenting to the emergency department for difficulty speaking. Initially was told last known well was 9 a.m. but patient later said that her friend was over at 12:30 and she was speaking normally at that time. Patient also states her symptoms seem to be resolving her daughter states she is speaking normally now. Due to that I did not find necessary to call a code stroke. I did page Neurology. After a I stepped out and came back into the room 10 minutes later the patient also states her blurry vision is going away which she did not mention earlier. Dr. Condon of [facility] called back so I stepped out of the room and I spoke to her about the patient. I explained to her that the patient's speech issues has since resolved and she is also having a headache. At this time was not aware of any previous migraines in the patient and her initial explanation sound like was bilateral visual field issues. Due to that Dr. Condon do not think this was stroke related seems more likely to be secondary to her blood pressure. I mentioned that the patient's house was very criminal researcher will be could be from dehydration Dr. Condon did not seem to concerned about that particular aspect. She did state the get clarification on the visual deficits to let her know. Dr. Condon and did say this sounds like it could be migraine related based on my descriptions. Recommended the for full stroke workup and MRI either tomorrow or outpatient if everything else was normal and patient's symptoms have fully resolved. CT head, CTA head and neck, CBC, CMP, magnesium, troponin, urinalysis all ordered. 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 Due to this time the patient specifically saying her visual deficit in headache feels like previous optic migraines and not necessary to call back Dr. Condon immediately as this is not a new issue for the patient. CT and CTA is returned showing no concerning abnormalities. EKG shows no concerning findings. Urinalysis was a dirty sample but she is not having any other urinary symptoms at this time and is asymptomatic. CBC, CMP, troponin shows no concerning findings. I did initially order labetalol but it was not given cause the patient's blood pressure came down on its own to 187/67 and considering how high it was initially do not want to lower it more. She is otherwise asymptomatic and I have updated Dr. Condon on everything and she is agreeable with the patient discharging home with follow-up with primary care provider for outpatient MRI. Patient will be discharged at this time. After the patient was discharged the final read of the CT 8 head and neck came back and showed a spiculated opacity the right lung apex that was concerning for neoplasm. I spoke to Dr. Sukh Ceja, the radiologist that did the final read. I then spoke to the patient's daughter and informed her of the finding. This is something that she can have follow-up outpatient and she is planning to speak to her primary doctor on Wednesday. I initially tried to call the patient but she did not answer her phone. Lab Data Labs: Lab Results 02/12/24 02/12/24 Range/Units 16:51 17:35 WBC 8.60 (4.50-11.00) K/uL RBC 3.65 L (4.00-5.20) m/uL Hgb 10.7 L (12.0-16.0) gm/dL Hct 33.3 (33.0-51.0) % MCV 91 (80-100) fL MCH 29 (26-34) pg MCHC 32 (32-36) gm/dL RDW Coeff of Albert 15.4 (11.5-15.5) % Plt Count 347 (140-440) K/uL Neut % (Auto) 25.4 L (42.0-72.0) % Lymph % (Auto) 61.7 H (20-44) % [place] % (Auto) 10.5 (0.0-11.0) % Eos % (Auto) 2.1 (0.0-7.0) % Baso % (Auto) 0.3 (0.0-3.0) % Neut # (Auto) 2.20 (1.7-7.0) K/uL Lymph # (Auto) 5.30 H (0.90-2.90) K/uL [place] # (Auto) 0.90 (0.00-0.90) K/UL Eos # (Auto) 0.18 (0.00-0.50) K/uL Baso # (Auto) 0.03 (0.00-0.30) K/uL Abs Immat Gran (auto) 0.00 (0.00-0.30) K/uL Imm/Tot Granulo (auto) 0.0 % Sodium 139 (135-149) mmol/L Potassium 3.8 (3.6-5.1) mmol/L Chloride 108 (96-114) mmol/L Carbon Dioxide 25 (20-32) mmol/L Anion Gap 6 L (7-15) mEq/L BUN 23 (7-30) mg/dL Creatinine 1.1 (0.5-1.5) mg/dL Estimated GFR 50 ml/min Glucose 120 H (60-115) mg/dL Calcium 9.1 (8.4-10.6) mg/dL Magnesium 2.2 (1.5-2.6) mg/dL Total Bilirubin 0.4 (0.1-1.5) mg/dL AST 25 (12-35) U/L ALT 12 (4-35) U/L Alkaline Phosphatase 140 (40-150) U/L Troponin I < 0.01 L (0.01-0.04) ng/mL Total Protein 7.6 (6.0-8.3) g/dL Albumin 4.0 (3.3-5.0) g/dL Urine Color Yellow (Yellow) Urine Appearance Clear (Clear) Urine pH 7.5 (5.0-8.5) Ur Specific [place] 1.015 (1.000-1.030) Urine Protein Negative (Negative) Urine Glucose (UA) Negative (Negative) Urine Ketones Negative (Negative) Urine Blood 1+ A (Negative) Urine Nitrite Negative (Negative) Urine Bilirubin Negative (Negative) Urine Urobilinogen 0.2 (0.2-1.0) Ur Leukocyte Esterase 1+ A (Negative) Urine RBC 10-25 A (0-2) Urine WBC 5-10 A (0-5) Ur Squamous Epith Cells Moderate A (None-Few) Urine Bacteria Few A (None) Imaging Data CTA head and neck: Attestation: I have reviewed the pertinent imaging results. Radiologist's impression: Preliminary Report: INDICATION: Difficulty speaking. Word finding. COMPARISON: Noncontrast CT from earlier today. MRI 05/09/2021. FINDINGS: CTA head: 1. Bilateral carotid siphons and [place] are patent. 2. Major bilateral intracranial arterial circulations are patent with no focal high-grade stenosis or aneurysm. 3. Patent codominant vertebrobasilar system. CTA neck: 1. Bilateral carotid artery circulations are patent from the origin to the skullbase. Notable tortuosity of the mid and distal ICAs bilaterally but with no flow-limiting luminal narrowing or kinking. 2. Patent bilateral vertebral artery circulations through the vertebrobasilar junction. No high-grade stenosis or dissection. Other: Normal soft tissues of the visualized neck. Lung apices are clear. Read by:?Shabbir Damon MD @02/12/2024 5:51:[address] scan head: Attestation: I have reviewed the pertinent imaging results. Radiologist's impression: 1. No interval change. 2. No acute intracranial abnormality. 3. Moderate generalized cerebral volume loss. Chronic deep white matter small vessel ischemic changes Findings texted directly to Dr. Arnold at 5:31 p.m. Please note that all CT scans at this facility use dose modulation, iterative reconstruction, and/or weight-based dosing when appropriate to reduce radiation dose to as low as reasonably achievable. Dictated by Shabbir Damon MD @ 02/12/2024 5:32:28 PM ECG Data Attestation: I personally reviewed and interpreted this ECG as follows: Prior ECG tracings: available for review Interpretation: Normal sinus rhythm with a rate of 86 beats per minute, left axis deviation, normal intervals, normal axis, no ST or T-wave abnormalities. Appears similar to previous EKG on file. Discharge Plan Discharge Clinical Impression: Brain TIA Hypertension Qualifiers: Hypertension type: unspecified Qualified Code(s): I10 - Essential (primary) hypertension Patient Disposition: Home, Self-Care Condition: Improved Instructions: Hypertensive Crisis (ED), Hypertension (ED) Additional Instructions: Follow-up with your primary care provider on Wednesday to have an outpatient MRI done for the potential TIA. This seems most likely related to your high blood pressure and it is important you get back on blood pressure medication. Make sure to speak to her primary care provider about this also on Wednesday. Return to emergency department for new or worsening symptoms. Prescriptions: No Action albuterol sulfate 2.5 mg /3 mL (0.083 %) solution for nebulization 2.5 mg continuous nebulization Q4H PRN (Reason: cough) hydrochlorothiazide 12.5 mg capsule 12.5 mg PO DAILY levothyroxine [Synthroid] 88 mcg tablet 88 mcg PO DAILY losartan 25 mg tablet 50 mg PO DAILY Xarelto 20 mg tablet 20 mg PO QPM Follow Up/Referrals: Imra Mandujano DO [Primary Care Provider] - Stand Alone Forms: Bringg Info Instructions
[2024-02-12 17:15] LABS: Chloride* 108 mmol/L (96-114); Potassium* 3.8 mmol/L (3.6-5.1); Sodium* 139 mmol/L (135-149)
[2024-02-12 17:17] LABS: Alanine Aminotransferase* 12 U/L (4-35); Alkaline Phosphatase* 140 U/L (40-150); Anion Gap 6 mEq/L (7-15); Aspartate Amino Transferase* 25 U/L (12-35); Bilirubin Total* 0.4 mg/dL (0.1-1.5); Blood Urea Nitrogen* 23 mg/dL (7-30); Carbon Dioxide* 25 mmol/L (20-32); Creatinine* 1.1 mg/dL (0.5-1.5); Estimated Glomerular Filt Rate 50 ml/min; Total Protein* 7.6 g/dL (6.0-8.3)
[2024-02-12 17:18] LABS: Calcium* 9.1 mg/dL (8.4-10.6); Glucose* 120 mg/dL (60-115); Magnesium* 2.2 mg/dL (1.5-2.6)
[2024-02-12 17:33] LABS: Troponin I* < 0.01 ng/mL (0.01-0.04)
[2024-02-12 17:42] LABS: Appearance Urine Clear (Clear); Bilirubin Urine Negative (Negative); Blood Urine 1+ (Negative); Color Urine Yellow (Yellow); Glucose Urine Negative (Negative); Ketones Urine Negative (Negative); Leukocyte Esterase Urine 1+ (Negative); Nitrite Urine Negative (Negative); Protein Urine Negative (Negative); Specific Gravity Urine 1.015 (1.000-1.030); Urobilinogen Urine 0.2 (0.2-1.0); pH Urine 7.5 (5.0-8.5)
[2024-02-12 17:53] LABS: Bacteria Urine Few; Squamous Epithelial Cell Urine Moderate (None-Few)
[2024-02-12] MEDS: ACETAMINOPHEN 500 MG TABLET 1000 MG PO (18:20)
[2024-02-12] MEDS: KETOROLAC 15 MG/ML inj IVP (18:47)
== END 2024-02-12 18:57 | disposition home or self-care (01) ==
PROVIDERS: Emergency Provider Student in an Organized Health Care Education/Training Program; PCP Family Medicine
DX: G45.9 Transient cerebral ischemic attack, unspecified (principal); I10 Essential (primary) hypertension
CPT/HCPCS: 36415; 70450; 70496; 70498; 80053; 81001; 83735; 84484; 85025; 87086; 93005; 96374; 96375; 99283; 99284; 99285; A9270; J1885; Q9967

== ENCOUNTER 2024-02-14 09:15 | Emergency (ER) | payer MEDICARE, BC, SELFPAY ==
[2024-02-14] VITALS (34 sets, daily range): BP systolic 182–227; BP diastolic 62–110; PULSE 52–86; RESP 18; TEMP 36.4; O2SAT 95–100; BMI 30.2
--- NOTE | 2024-02-14 09:34 | CT_ITS ---
Patient: THEODORA ALEMAN Facility:?[facility] Patient ID:?[id number] Site Patient ID:?[id number]. Site :?[id number] Study:?CT-Head W/O-02/14/2024 9:51:44 AM Ordering Physician:NEGRO Final Report: INDICATION: High blood pressure, migraines, confusion. TECHNIQUE: CT of the head without contrast. Coronal and sagittal reformats are included. COMPARISON: Head CT from 02/12/2024. FINDINGS: No CT evidence of acute cortical infarct. No loss of galloway white matter differentiation. No hyperdense vessels to suggest intracranial thrombus. No acute intracranial hemorrhage. No mass effect or midline shift. No hydrocephalus or extra-axial collections. Patchy white matter hypoattenuation, typical for chronic microvascular ischemic change. Intracranial vascular calcifications. No acute osseous abnormalities. Mastoid air cells and paranasal sinuses are clear. Normal soft tissues. IMPRESSION: IMPRESSION:1. No CT evidence of acute cortical infarct. No acute intracranial hemorrhage. No other acute intracranial findings. Please note that all CT scans at this facility use dose modulation, iterative reconstruction, and/or weight-based dosing when appropriate to reduce radiation dose to as low as reasonably achievable. Dictated by Elan Chua MD @ 02/14/2024 10:06:26 AM Signed by:?Elan Chua MD @02/14/2024 10:06:26 AM (Electronic Signature)
--- NOTE | 2024-02-14 09:45 | ED.GENADULT ---
HPI - General Adult General Time Seen by Provider: 09:45 Date Seen: 02/14/24 Chief complaint: Hypertension Stated complaint: elevated bp Time Seen by Provider: 02/14/24 09:44 Source: patient and RN notes reviewed Mode of arrival: ambulatory Limitations: no limitations History of Present Illness HPI narrative: This 83-year-old female is coming back in accompanied by her daughter with worsening headache and elevation of her blood pressure. She wonders if the kidney stent that she has in might be causing the elevation. She states that she used to be on many different medications for hypertension. She went on a plant based diet, lost weight and dropped her blood pressure to systolic of 130s. Her blood pressure started elevating after this kidney stent was placed. It is scheduled to come out March 06 per her report. She has been in the ER twice now for her elevated blood pressure, on January 20, which was more of an evaluation for some chest pressure with elevated blood pressure, was referred from clinic triage. She was also just recently in on February 11, had head CT and CTA of head neck for possible TIA. On Wednesday she was having difficulty finding words, seemed more confused. She had a headache at that time as well. Blood pressures were 234/96 on presentation. She reports in 2013 when her was in the ICU at [place], she had a similar episode and had negative workup. She had not slept for 4 days when this happened. She does note that her vision seems a little bit blurry but bilaterally, has a headache. Patient does have a sense of mild chest pressure but would not say it is chest pain. No numbness tingling, no focal weakness anywhere. Has been able to ambulate. Related Data Home Medications Medication Instructions Recorded Confirmed levothyroxine 88 mcg tablet 88 mcg PO DAILY 01/07/23 02/14/24 (Synthroid) losartan 25 mg tablet 50 mg PO DAILY 01/07/23 06/02/23 rivaroxaban 20 mg tablet (Xarelto) 20 mg PO QPM 01/07/23 06/02/23 albuterol sulfate 2.5 mg/3 mL 2.5 mg continuous nebulization Q4H 01/14/23 06/02/23 (0.083 %) solution for nebulization PRN cough hydrochlorothiazide 12.5 mg capsule 12.5 mg PO DAILY 04/05/23 06/02/23 aspirin 81 mg tablet,delayed 81 mg PO DAILY 02/14/24 02/14/24 release (Adult Aspirin Regimen) Allergies Allergy/AdvReac Type Severity Reaction Status Date / Time WILLIAM Inhibitors Allergy Mild Hives Verified 02/14/24 09:28 hyoscyamine [From Levsin] Allergy Mild Hives Verified 02/14/24 09:28 apixaban [From Eliquis] AdvReac Intermediate Diarrhea Verified 02/14/24 09:28 lisinopril AdvReac Mild Cough Verified 02/14/24 09:28 metoprolol AdvReac Mild Cough Verified 02/14/24 09:28 Review of Systems Status of ROS: Reports: 6 or more systems reviewed and unremarkable except as noted in History and below [facility] Medical History Vitamin D deficiency ?E55.9 - Vitamin D deficiency, unspecified (ICD-10) Osteopenia ?M85.80 - Other specified disorders of bone density and structure, unspecified site (ICD-10) 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 - Migraine with aura, not intractable, without status migrainosus (ICD-10) Intestinal infection due to campylobacter ?A04.5 - Campylobacter enteritis (ICD-10) Hypothyroidism ?E03.9 - Hypothyroidism, unspecified (ICD-10) Hypertension ?I10 - Essential (primary) hypertension (ICD-10) Hyperlipidemia ?E78.5 - Hyperlipidemia, unspecified (ICD-10) Hiatal hernia ?K44.9 - Diaphragmatic hernia without obstruction or gangrene (ICD-10) Esophageal reflux ?K21.9 - Gastro-esophageal reflux disease without esophagitis (ICD-10) Edema ?R60.9 - Edema, unspecified (ICD-10) Duodenal ulcer, unspecified as acute or chronic, without hemorrhage or perforation ?K26.9 - Duodenal ulcer, unspecified as acute or chronic, without hemorrhage or perforation (ICD-10) Chest pain ?R07.9 - Chest pain, unspecified (ICD-10) Anticoagulation monitoring, INR range 2-3 ?Z79.01 - nursing home (current) use of anticoagulants (ICD-10) Surgical History History of eye surgery ?Z98.890 - Other specified postprocedural states (ICD-10) History of lumbar discectomy ?Z98.890 - Other specified postprocedural states (ICD-10) History of cholecystectomy ?Z90.49 - Acquired absence of other specified parts of digestive tract (ICD-10) History of knee replacement ?Z96.659 - Presence of unspecified artificial knee joint (ICD-10) History of surgery on lower extremity ?Z98.890 - Other specified postprocedural states (ICD-10) History of surgery on lower extremity ?Z98.890 - Other specified postprocedural states (ICD-10) History of esophagogastroduodenoscopy (EGD) ?Z98.890 - Other specified postprocedural states (ICD-10) S/P epidural steroid injection ?Z92.241 - Personal history of systemic steroid therapy (ICD-10) History of colonoscopy ?Z98.890 - Other specified postprocedural states (ICD-10) History of cataract removal with insertion of prosthetic lens ?Z98.49 - Cataract extraction status, unspecified eye (ICD-10) ?Z96.1 - Presence of intraocular lens (ICD-10) History of breast augmentation ?Z98.82 - Breast implant status (ICD-10) History of appendectomy ?Z90.49 - Acquired absence of other specified parts of digestive tract (ICD-10) Social History Smoking Status: Never smoker Do you use any of these nicotine containing products: None Second hand tobacco smoke exposure: No How often do you have a drink containing alcohol: never How often do you have six or more drinks on one occasion: Never AUDIT-C Alcohol total score: 0 Non-prescribed substance use: denies use service: No Exam Const: Vital Signs, click to edit/add: Vital Signs - 24 hr 02/14/24 09:22 02/14/24 09:36 02/14/24 09:37 Temperature 97.6 F Pulse Rate 79 78 Pulse Rate [Right Pulse Oximeter] 86 Respiratory Rate 18 Blood Pressure 216/85 H Blood Pressure [Ri ght Upper Arm] 227/70 H Pulse Oximetry 98 100 02/14/24 09:45 02/14/24 09:47 02/14/24 09:52 Temperature Pulse Rate 75 81 Pulse Rate [Right Pulse Oximeter] Respiratory Rate Blood Pressure 225/92 H Blood Pressure [Ri ght Upper Arm] Pulse Oximetry 98 99 98 02/14/24 10:00 02/14/24 10:02 02/14/24 10:03 Temperature Pulse Rate 64 67 63 Pulse Rate [Right Pulse Oximeter] Respiratory Rate Blood Pressure 224/93 H Blood Pressure [Ri ght Upper Arm] Pulse Oximetry 99 100 99 02/14/24 10:15 02/14/24 10:17 02/14/24 10:30 Temperature Pulse Rate 65 65 59 L Pulse Rate [Right Pulse Oximeter] Respiratory Rate Blood Pressure 195/110 H Blood Pressure [Ri ght Upper Arm] Pulse Oximetry 100 100 100 02/14/24 10:32 02/14/24 10:46 02/14/24 10:47 Temperature Pulse Rate 61 66 62 Pulse Rate [Right Pulse Oximeter] Respiratory Rate Blood Pressure 205/85 H 197/68 H Blood Pressure [Ri ght Upper Arm] Pulse Oximetry 97 100 98 02/14/24 11:00 02/14/24 11:02 02/14/24 11:03 Temperature Pulse Rate 63 61 65 Pulse Rate [Right Pulse Oximeter] Respiratory Rate Blood Pressure 211/75 H Blood Pressure [Ri ght Upper Arm] Pulse Oximetry 99 99 100 02/14/24 11:48 02/14/24 12:00 02/14/24 12:02 Temperature Pulse Rate 62 58 L 59 L Pulse Rate [Right Pulse Oximeter] Respiratory Rate Blood Pressure 198/70 H Blood Pressure [Ri ght Upper Arm] Pulse Oximetry 99 100 100 02/14/24 12:15 02/14/24 12:17 02/14/24 12:30 Temperature Pulse Rate 53 L 52 L 55 L Pulse Rate [Right Pulse Oximeter] Respiratory Rate Blood Pressure 195/68 H Blood Pressure [Ri ght Upper Arm] Pulse Oximetry 99 98 99 02/14/24 12:32 02/14/24 12:45 02/14/24 12:47 Temperature Pulse Rate 55 L 57 L 58 L Pulse Rate [Right Pulse Oximeter] Respiratory Rate Blood Pressure 182/65 H 183/62 H Blood Pressure [Ri ght Upper Arm] Pulse Oximetry 97 98 97 02/14/24 13:00 02/14/24 13:01 02/14/24 13:15 Temperature Pulse Rate 74 63 59 L Pulse Rate [Right Pulse Oximeter] Respiratory Rate Blood Pressure 183/64 H Blood Pressure [Ri ght Upper Arm] Pulse Oximetry 95 100 99 02/14/24 13:17 Temperature Pulse Rate 62 Pulse Rate [Right Pulse Oximeter] Respiratory Rate Blood Pressure 182/62 H Blood Pressure [Ri ght Upper Arm] Pulse Oximetry 99 This 83-year-old female is ambulatory into the ED of her own accord. She is alert, interactive, no apparent distress. No visual field cuts, pupils are equal round and reactive, conjugate gaze, extraocular muscles intact. I note no nystagmus. She has symmetrical facial function, no motor deficits noted, normal sensation. Speech is succinct and normal. She does endorse confusion today, she thought for sure that she was in the ER yesterday, it was 2 days ago. She knows current place person and time. Neck is supple, no adenopathy, no jugular venous distension. Lungs are clear, good air entry, no wheezing or crackles. CV regular rate and rhythm, soft systolic murmur, normal S1-S2, no S3-S4. Abdomen is soft, no rebound or guarding. She has normal flexion extension of fingers, hand clinical auditor strength, biceps. She can lift her legs off the bed, normal Teresa and plantar flexion of the feet. Normal light touch sensation throughout. No dysmetria, no tremor. No lower extremity edema. Documenting provider has reviewed patient's vital signs: yes Course Course ED Course: Patient was sent to emergent head CT, had nursing staff do this as I was called to a code in the OR. I saw patient immediately on my arrival back. There is concern for hypertensive encephalopathy here. It is possible that she could have infarct as well. Will likely be talking to Neurology soon. Continue to monitor her closely. We will have her get an EKG, be on cardiac monitoring and pulse oximetry. Need to watch her blood pressure closely, if remaining over 220 in either conditions, may need to give IV medication. Will see what Neurology has to say on her situation. Will get full complement of labs. Reevaluation(s) Time of Reevaluation #1: 10:17 Reevaluation #1: Reviewed with patient and her daughter that we will be proceeding with an MRI. Blood pressure was cycling, currently is 195/110. Will continue to monitor this closely. Time of Reevaluation #2: 10:47 Reevaluation #2: Patient remains stable, current blood pressure is 205/85. Awaiting MRI. She would like something to drink, I think she can have some small sips of fluids right now. Time of Reevaluation #3: 10:57 Reevaluation #3: Patient is reporting increasing headache and neck pain, 07/06. Most recent blood pressure was fine, will have nursing staff recycled the blood pressure. Will treat her with pain management at this time, 2 mg IV morphine and 4 mg IV Zofran. May need to initiate antihypertensive if her blood pressure is up. 197/68 is the recheck blood pressure. Patient will proceed to get the morphine and Zofran. Additional Reevaluation(s): 1:34 p.m.: Reviewed with patient her MRI. We discussed the chronic microvascular ischemic changes from hypertension, volume loss. She notes her headache is significantly improved from the morphine. We discussed the problem of is at her hypertension causing the headache or does she have a headache that is contributing to the elevated blood pressure/hypertension due to pain. She states she still been able to walk a mi at home and has been doing so daily. She believes this all refers back to the renal stent. It certainly could but until this is out, we have documentation of elevated blood pressures. She has not been taking her losartan. She is willing to go back on this, would have her take a pill today when she gets home. She has 50 mg tablets at home. Discussed hospitalization for observation an initial management of her blood pressure and following of her headache. She declines. I do not think it is necessary with her current negative workup including MRI that she needs to come into the hospital. I do strongly feel the need for her to start the losartan back up. Once the renal stent is out, she can see if she can go back off blood pressure management. I have requested she follow up within 3-5 days in clinic for recheck. She is agreeable to this plan. Consultations Consultation #1: Did speak with Dr. Tong stroke Neurology. He agrees with proceeding with MRI and does have the same concerns that do that this may be PRES. If the blood pressure is consistently stain over 220, can treat with IV medications but otherwise he believes we should await the MRI in case this is a stroke. Time: 09:58 Vital Signs Vital signs: Initial Vital Signs Temperature 97.6 F 02/14/24 09:22 Temperature Source Temporal Artery Scan 02/14/24 09:22 Pulse Rate 86 02/14/24 09:22 Pulse Rhythm Regular 02/14/24 09:22 Respiratory Rate 18 02/14/24 09:22 Blood Pressure 227/70 H 02/14/24 09:22 Blood Pressure Mean 122 H 02/14/24 09:22 Blood Pressure Position Sitting 02/14/24 09:22 Vital Signs Temperature 97.6 F 02/14/24 09:22 Pulse Rate 86 02/14/24 09:22 Respiratory Rate 18 02/14/24 09:22 Blood Pressure 227/70 H 02/14/24 09:22 Temperature 97.6 F 02/14/24 09:22 Pulse Rate 62 02/14/24 13:17 Respiratory Rate 18 02/14/24 09:22 Blood Pressure 182/62 H 02/14/24 13:17 Pulse Oximetry 99 02/14/24 13:17 Medications Administered Medications: Discontinued Medications Generic Name Dose Route Start Last Admin Trade Name Julio PRN Reason Stop Dose Admin Morphine Sulfate 2 mg 02/14/24 10:57 02/14/24 11:04 Morphine 2 Mg/Ml Inj IVP 02/14/24 10:58 2 mg ONCE ONE Administration Ondansetron HCl 4 mg 02/14/24 10:57 02/14/24 11:04 Ondansetron 2 Mg/Ml Inj IVP 02/14/24 10:58 4 mg ONCE ONE Administration Medical Decision Making Lab Data Labs: Lab Results 02/14/24 Range/Units 10:00 WBC 6.95 (4.50-11.00) K/uL RBC 3.65 L (4.00-5.20) m/uL Hgb 10.6 L (12.0-16.0) gm/dL Hct 33.6 (33.0-51.0) % MCV 92 (80-100) fL MCH 29 (26-34) pg MCHC 32 (32-36) gm/dL RDW Coeff of Albert 15.5 (11.5-15.5) % Plt Count 347 (140-440) K/uL Neut % (Auto) 31.0 L (42.0-72.0) % Lymph % (Auto) 56.0 H (20-44) % [place] % (Auto) 9.8 (0.0-11.0) % Eos % (Auto) 2.6 (0.0-7.0) % Baso % (Auto) 0.6 (0.0-3.0) % Neut # (Auto) 2.20 (1.7-7.0) K/uL Lymph # (Auto) 3.90 H (0.90-2.90) K/uL [place] # (Auto) 0.70 (0.00-0.90) K/UL Eos # (Auto) 0.18 (0.00-0.50) K/uL Baso # (Auto) 0.04 (0.00-0.30) K/uL Abs Immat Gran (auto) 0.00 (0.00-0.30) K/uL Imm/Tot Granulo (auto) 0.0 % INR 0.96 (0.91-1.10) APTT 33 (23-33) Seconds Sodium 140 (135-149) mmol/L Potassium 3.9 (3.6-5.1) mmol/L Chloride 111 (96-114) mmol/L Carbon Dioxide 22 (20-32) mmol/L Anion Gap 7 (7-15) mEq/L BUN 19 (7-30) mg/dL Creatinine 1.1 (0.5-1.5) mg/dL Estimated Creat Clear 30.65 Estimated GFR 50 ml/min Glucose 92 (60-115) mg/dL Calcium 8.9 (8.4-10.6) mg/dL Total Bilirubin 0.8 (0.1-1.5) mg/dL AST 27 (12-35) U/L ALT 11 (4-35) U/L Alkaline Phosphatase 114 (40-150) U/L Troponin I < 0.01 L (0.01-0.04) ng/mL C-Reactive Protein < 0.5 L (0.5-1.0) mg/dL NT-Pro-B Natriuret Pep 969 pg/mL Total Protein 7.7 (6.0-8.3) g/dL Albumin 4.2 (3.3-5.0) g/dL Imaging Data CT scan - head: Attestation: I have reviewed the pertinent imaging results. Radiologist's impression: Patient: THEODORA ALEMAN Facility:?[facility] Patient ID:?[id number] Site Patient ID:?[id number]. Site :?[id number] Study:?CT-Head W/O-02/14/2024 9:51:44 AM Ordering Physician:NEGRO Final Report: INDICATION: High blood pressure, migraines, confusion. TECHNIQUE: CT of the head without contrast. Coronal and sagittal reformats are included. COMPARISON: Head CT from 02/12/2024. FINDINGS: No CT evidence of acute cortical infarct. No loss of galloway white matter differentiation. No hyperdense vessels to suggest intracranial thrombus. No acute intracranial hemorrhage. No mass effect or midline shift. No hydrocephalus or extra-axial collections. Patchy white matter hypoattenuation, typical for chronic microvascular ischemic change. Intracranial vascular calcifications. No acute osseous abnormalities. Mastoid air cells and paranasal sinuses are clear. Normal soft tissues. IMPRESSION: IMPRESSION:1. No CT evidence of acute cortical infarct. No acute intracranial hemorrhage. No other acute intracranial findings. Please note that all CT scans at this facility use dose modulation, iterative reconstruction, and/or weight-based dosing when appropriate to reduce radiation dose to as low as reasonably achievable. Dictated by Elan Chua MD @ 02/14/2024 10:06:26 AM (Electronic Signature) MR Brain: Attestation: I have reviewed the pertinent imaging results. Radiologist's impression: Patient: THEODORA ALEMAN Facility:?[facility] Patient ID:?[id number] Site Patient ID:?[id number]. Site :?[id number] Study:?MRI-Head WO-02/14/2024 12:13:05 PM Ordering Physician:DARIO Final Report: INDICATION: Hypertension. TECHNIQUE: Brain MRI without contrast. COMPARISON: Head CT from 02/14/2024. FINDINGS: No evidence of acute ischemia. No evidence of acute or chronic intracranial blood products. Patchy and confluent FLAIR hyperintensities within the deep/periventricular supratentorial white matter, typical for chronic microvascular ischemic change. Moderate generalized parenchymal volume loss. No mass effect or herniation. No hydrocephalus or extra-axial collections. The pituitary gland, parasellar structures and optic chiasm are normal. Posterior fossa is normal. All the major intracranial vascular structures demonstrate normal flow-related signal. The orbital contents are normal. No calvarial or skull base marrow replacing process. No obstructive sinus disease. No extracranial soft tissue findings. IMPRESSION: 1. No acute infarction or other acute intracranial pathology. 2. Mild chronic microvascular ischemic changes and moderate generalized parenchymal volume loss. Dictated by Elan Chua MD @ 02/14/2024 12:29:53 PM (Electronic Signature) ECG Data Attestation: I personally reviewed and interpreted this ECG as follows: (Normal sinus rhythm, 79 beats per minute. Some artifact. No definitive change for ischemia or infarct.) Prior ECG tracings: available for review (02/12/2024, no artifact on this prior EKG ) Discharge Plan Discharge Clinical Impression: Headache Qualifiers: Headache type: unspecified Headache chronicity pattern: acute headache Intractability: not intractable Qualified Code(s): R51.9 - Headache, unspecified Hypertension Qualifiers: Hypertension type: primary hypertension Qualified Code(s): I10 - Essential (primary) hypertension Patient Disposition: Home, Self-Care Condition: Stable Instructions: Chronic Hypertension (ED), General Headache (ED) Additional Instructions: You need to start your 50 mg losartan, take 1st dose today and take daily thereafter. Need to follow up in clinic within 3-5 days for recheck. If you feel your headache is worsening, have further concerns in the interim, do recommend seeking re-evaluation. Activity Level: Activity as Tolerated Discharge Diet: Heart Healthy (2 gm sodium, low fat) Prescriptions: No Action albuterol sulfate 2.5 mg /3 mL (0.083 %) solution for nebulization 2.5 mg continuous nebulization Q4H PRN (Reason: cough) hydrochlorothiazide 12.5 mg capsule 12.5 mg PO DAILY levothyroxine [Synthroid] 88 mcg tablet 88 mcg PO DAILY losartan 25 mg tablet 50 mg PO DAILY Xarelto 20 mg tablet 20 mg PO QPM aspirin [Adult Aspirin Regimen] 81 mg tablet,delayed release (DR/EC) 81 mg PO DAILY Follow Up/Referrals: Irma Mandujano DO [Primary Care Provider] - Stand Alone Forms: [employer] Info Instructions
--- NOTE | 2024-02-14 10:03 | MR_ITS ---
Patient: THEODORA ALEMAN Facility:?[facility] Patient ID:?[id number] Site Patient ID:?[id number]. Site :?[id number] Study:?MRI-Head WO-02/14/2024 12:13:05 PM Ordering Physician:DARIO Final Report: INDICATION: Hypertension. TECHNIQUE: Brain MRI without contrast. COMPARISON: Head CT from 02/14/2024. FINDINGS: No evidence of acute ischemia. No evidence of acute or chronic intracranial blood products. Patchy and confluent FLAIR hyperintensities within the deep/periventricular supratentorial white matter, typical for chronic microvascular ischemic change. Moderate generalized parenchymal volume loss. No mass effect or herniation. No hydrocephalus or extra-axial collections. The pituitary gland, parasellar structures and optic chiasm are normal. Posterior fossa is normal. All the major intracranial vascular structures demonstrate normal flow-related signal. The orbital contents are normal. No calvarial or skull base marrow replacing process. No obstructive sinus disease. No extracranial soft tissue findings. IMPRESSION: 1. No acute infarction or other acute intracranial pathology. 2. Mild chronic microvascular ischemic changes and moderate generalized parenchymal volume loss. Dictated by Elan Chua MD @ 02/14/2024 12:29:53 PM Signed by:?Elan Chua MD @02/14/2024 12:29:53 PM (Electronic Signature)
--- OUTSIDE RECORDS SUMMARY | 2024-02-14 10:07 | XMS_ITS | Data Portability ---
Author Name Unknown Address [address] [place] [address] Phone [phone] Organization [facility], [facility] Address [address] [place] [address] Care Team Providers Care Clinical Exercise Specialist Name Role Phone BRIAN HURD Referring Provider Assessment Encounter Date Assessment Date Assessment LastModified by Organization Details LastModified Time 01/18/2024 01/18/2024 83 Y/O FEMALE, HX OF RT HYDRONEPHROSI S, UTI, EARLY SEPSIS AND PLACEMENT OF A RT URETERAL STENT IN [place]. U/C POS WITH HORTON SENSITIVE ECOLI . NOW BACK TO BASELINE. C.T. 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 REVIEWED EXTENSIVE RECORDS, LABS FROM [place]. PLAN WILL SCHEDULE CYSTO, RT RETROGRADE AND REEVALUATE UPJ AND POSSIBLE STENT EXCHANGE.PROC EDURE EXPLAINED IN DETAIL. ALL QUESTIONS ANSWERED. Not available 01/18/2024 22:00:32 Plan of Treatment Reminders Order Date Submit Date Provider Last Modified By Organization Details Last Modified Time Details Appointments [facility] 60 2023 10:00A M Stone Sage MD Not available Not available Not available Lab None recorded. Referral None recorded. Procedures None recorded. Surgeries None recorded. Imaging None recorded. Medication Orders None recorded. Patient TargetsNo targets recorded. Patient InstructionsNo instructions recorded. Reason for Referral None Reported. Problems Name Status Onset Date Resolution Date Notes Provider Name and Address Organization Details Recorded Time Obstruction of pelviureteric junction Active 01/18/20 24 Stone Sage MD [address] [place] [address],[address], [place], [phone], [facility] 01/18/2024 22:00:44 Problem Notes None recorded. Medical Equipment None Reported. Allergies No known drug allergies Medications Name Sig Start Date Stop Date Status Note LastModified by Organization Details LastModified Time nebulizer tubing [id number] DIRECTED. REPLACE MASK AND TUBING EVERY 6 MONTHS. 01/17 completed Not Available Not Available Not Available compair xlt compre cmpressr USE DIRECTED 01/17 completed Not Available Not Available Not Available losartan 50 mg tablet TAKE 1 TABLET (50 MG) BY MOUTH ONCE DAILY. 01/17 completed Not Available Not Available Not Available cyclobenzap rine 10 mg tablet TAKE ONE TABLET BY MOUTH TWICE A DAY IF NEEDED FOR MUSCLE SPASMS FOR UP TO 12 DOSES 01/17 completed Not Available Not Available Not Available albuterol sulfate 2.5 mg/3 mL (0.083 %) solution for nebulizatio n INHALE 3 ML (2.5 MG) VIA A NEBULIZER EVERY 4 HOURS IF NEEDED FOR COUGH. 01/17 completed Not Available Not Available Not Available oxycodone-a cetaminophe n 5 mg-325 mg tablet TAKE ONE TABLET BY MOUTH EVERY 6 HOURS IF NEEDED FOR SEVERE PAIN FOR UP TO 3 DAYS 01/17 completed Not Available Not Available Not Available prednisolon e acetate 1 % eye drops,suspe nsion INSTILL 1 DROP INTO EACH EYE EVERY MORNING FOR ONE WEEK 01/17 completed Not Available Not Available Not Available cephalexin 500 mg capsule TAKE ONE CAPSULE BY MOUTH TWICE A DAY FOR 5 DAYS 01/17 completed Not Available Not Available Not Available Synthroid 88 mcg tablet TAKE ONE TABLET BY MOUTH ONE TIME DAILY 01/17 completed Not Available Not Available Not Available hydrochloro thiazide 12.5 mg capsule TAKE ONE CAPSULE BY MOUTH ONE TIME DAILY 01/17 completed Not Available Not Available Not Available omeprazole 20 mg capsule,del ayed release TAKE ONE CAPSULE BY MOUTH EVERY DAY NEEDED. 01/17 completed Not Available Not Available Not Available cefuroxime axetil 500 mg tablet TAKE ONE TABLET BY MOUTH TWICE A DAY NEEDED. TAKE NEEDED FOR SIGNS OR SYMTOMS OF URINARY TRACT INFECTION active Not Available Not Available No t Available methylpredn isolone 4 mg tablets in a dose pack TAKE DIRECTED ON PACKAGE 01/17 completed Not Available Not Available Not Available ondansetron 4 mg disintegrat ing tablet DISSOLVE 1 TABLET ON THE TONGUE EVERY 8 HOURS NEEDED FOR NAUSEA AND VOMITING 01/17 completed Not Available Not Available Not Available oxycodone 5 mg tablet TAKE 1 TABLET BY MOUTH EVERY 6 HOURS NEEDED FOR PAIN 01/17 completed Not Available Not Available Not Available metoprolol tartrate 25 mg tablet TAKE ONE TABLET BY MOUTH TWICE A DAY - MAY TAKE AN ADDITIONA L TABLET FOR PALPITATI ONS - DO NOT TAKE MORE THAN ONE EXTRA DOSE IN 24 HOURS 01/17 completed Not Available Not Available Not Available peg 3350-electr olytes 236 gram-22.74 gram-6.74 gram-5.86 gram solution DRINK 4,000 ML BY MOUTH ONE TIME FOR 1 DOSE DIRECTED 01/17 completed Not Available Not Available Not Available Xarelto 20 mg tablet TAKE ONE TABLET BY MOUTH EVERY DAY 01/17 completed Not Available Not Available Not Available Vitals Date Recorded Body height Body mass index (BMI) Body weight Provider Name and Address Organization Details Last Updated DateTime 01/18/2024 160.02 cm 29.1 kg/m2 01149.15 g Stone Sage MD [address] [place] [address], [phone] 01/18/2024 16:03:19 Social History Question Answer Notes LastModified by Organizat ion Details LastModified Time Tobacco Smoking Status Never Smoker Stone Sage MD [address] [place] [address], [phone] 01/18/2024 16:04:53 What Is Your Level Of Alcohol Consumption? None Information not available 01/18/2024 What Was The Date Of Your Most Recent Tobacco Screening? 01/18/2024 Information not available 01/18/2024 Sex: Female Functional Status None recorded. Mental Status None recorded. Family History Nothing Reported. Medical History Condition Response Sexually Transmitted Infection N Diabetes N Other N Bleeding Disorder N High Blood Pressure N Kidney Stones N High Cholesterol N GERD/Acid Reflux N Heart Disease N Cancer N Depression N Lung Disease N Gynecological HistoryNo gynecological history recorded. Obstetrics History GPAL:G 0 P 0 0 0 0 Immunizations Vaccine Type Date Status Provider Name and Address Organization Details Recorded Time pneumococcal polysaccharide PPV23 09/15/2005 completed Stone Sage MD [address] [place] [address],[address] [place] [address], [phone], [facility] 01/18/2024 16:03:41 Pneumococcal conjugate PCV 13 04/20/2017 completed Stone Sage MD [address] [place] [address],[address], [place], [address], [facility] 01/18/2024 16:03:41 zoster live 01/26/2008 completed Stone Sage MD [address] [place] [address],[address], [phone], [facility] 01/18/2024 16:03:41 Influenza, high dose seasonal 06/24/2015 completed Stone Sage MD [address] [place] [address],[address], [phone], [facility] 01/18/2024 16:03:41 Influenza, high dose seasonal 07/17/2014 completed Stone Sage MD [address] [place] [address],[address], [phone], [facility] 01/18/2024 16:03:41 Influenza, seasonal, injectable 07/25/2013 completed Stone Sage MD [address] [place] [address],[address], [phone], [facility] 01/18/2024 16:03:41 Td (adult), 5 Lf tetanus toxoid, preservative free, adsorbed 01/26/2008 renée Sage MD [address] [place] [address],[address], [phone], [facility] 01/18/2024 16:03:41 Past Encounters Encounter ID Performer Location Encounter Start Date Encounter Closed Date Diagnosis/Indication Diagnosis SNOMED-CT Code [id number] Stone Sage MD [facility] [address] [id number] 01/18/2024 15:50:30 01/19/2024 11:20:30 Obstruction of pelviureteric junction [id number] Health Concerns Section Related Observation LastModified by Organization Carmelina narvaez LastModified Time None Recorded Concern Status LastModified by Organization Details LastModified Time None Recorded Advance Directives Directive None Recorded Payers Encounter Date Sequence Insurance Name Policy Number Policy Schaffer Covered Member ID Schaffer Member ID Guarantor Name 01/18/2024 1 [facility] [employer] - MEDICARE COST [id number] Sun Medrano [id number] Sun Medrano Notes Date Note Type Note Provider Name and Address Organization Details Recorded Time 01/18/2024 text/html HPI Notes: 83 YO F HERE FOR HYDRONEPHROSIS FOLLOWUP. WENT INTO ER, FOUND TO HAVE INFECTION AND SEVERE RIGHT HYDRONEPHROSIS. SUSPECTED RT UPJ OBSTRUCTION .STENT PLACED ABOUT 3 WEEKS AGO IN [place]. ECOLI UTI. SPENT 4 DAYS IN THE HOSPITAL..NOW BACK TO BASELINE. NO STENT DISCOMFORT. Stone Sage MD [address] [place] [address],[address], [place], [address], [facility] 01/18/2024 22:01:23 OBGyn Episode No OBEpisode recorded.
[2024-02-14 10:25] LABS: Albumin* 4.2 g/dL (3.3-5.0); Chloride* 111 mmol/L (96-114); Sodium* 140 mmol/L (135-149)
[2024-02-14 10:26] LABS: INR 0.96 (0.91-1.10); Potassium* 3.9 mmol/L (3.6-5.1); Prothrombin Time 13.3 Seconds
[2024-02-14 10:27] LABS: Creatinine* 1.1 mg/dL (0.5-1.5); Est. Creatinine Clearance* 30.65; Estimated Glomerular Filt Rate 50 ml/min; Partial Thromboplastin Time* 33 Seconds (23-33)
[2024-02-14 10:28] LABS: Alanine Aminotransferase* 11 U/L (4-35); Alkaline Phosphatase* 114 U/L (40-150); Anion Gap 7 mEq/L (7-15); Aspartate Amino Transferase* 27 U/L (12-35); Bilirubin Total* 0.8 mg/dL (0.1-1.5); Blood Urea Nitrogen* 19 mg/dL (7-30); Carbon Dioxide* 22 mmol/L (20-32); Total Protein* 7.7 g/dL (6.0-8.3)
[2024-02-14 10:29] LABS: Calcium* 8.9 mg/dL (8.4-10.6); Glucose* 92 mg/dL (60-115)
[2024-02-14 10:40] LABS: C Reactive Protein* < 0.5 mg/dL (0.5-1.0); NT Pro B Type NatriureticPept* 969 pg/mL
[2024-02-14 10:41] LABS: Troponin I* < 0.01 ng/mL (0.01-0.04)
[2024-02-14 10:56] LABS: Basophils Absolute Auto 0.04 K/uL (0.00-0.30); Basophils Percent Auto 0.6 % (0.0-3.0); Eosinophils Absolute Auto 0.18 K/uL (0.00-0.50); Eosinophils Percent Auto 2.6 % (0.0-7.0); Hematocrit 33.6 % (33.0-51.0); Hemoglobin* 10.6 gm/dL (12.0-16.0); Mean Corpuscular HGB Conc 32 gm/dL (32-36); Mean Corpuscular Hemoglobin 29 pg (26-34); Mean Corpuscular Volume 92 fL (80-100); Monocytes Percent Auto 9.8 % (0.0-11.0); Platelet Count* 347 K/uL (140-440); RDW Coefficient of Variation % 15.5 % (11.5-15.5); Red Blood Count 3.65 m/uL (4.00-5.20); White Blood Count* 6.95 K/uL (4.50-11.00)
[2024-02-14] MEDS: MORPHINE 2 MG/ML inj IVP (11:04)
[2024-02-14] MEDS: ONDANSETRON 2 MG/ML inj 4 MG IVP (11:04)
[2024-02-14 11:10] LABS: Slide Review Reflex No
== END 2024-02-14 13:55 | disposition home or self-care (01) ==
PROVIDERS: Emergency Provider Family Medicine; PCP Family Medicine
DX: R51.9 Headache, unspecified (principal); I10 Essential (primary) hypertension
CPT/HCPCS: 36415; 70450; 70551; 80053; 83880; 84484; 85025; 85610; 85730; 86140; 93005; 94761; 96374; 96375; 99285; J2270; J2405

== ENCOUNTER 2024-03-08 01:24 | Emergency (ER) | payer MEDICARE, BC, SELFPAY ==
[2024-03-08 01:34] VITALS: BP 228/90; PULSE 84; RESP 16; TEMP 36.3; O2SAT 98; BMI 28.3
--- NOTE | 2024-03-08 01:54 | CRLHL7_ITS ---
For Patients: As a result of the Century Cures Act, medical imaging exams and procedure reports are released immediately into your electronic medical record. You may view this report before your referring provider. If you have questions, please contact your health care provider. INDICATION: Right lower quadrant abdominal pain after recent right ureteral stent removal. TECHNIQUE: CT scan of the abdomen and pelvis with 79 cc of Isovue 370 given intravenously. Findings : The lung bases are unremarkable. No focal abnormalities identified in the visualized portions of the liver, spleen, pancreas, and adrenal glands. Dilated right renal pelvis and calices. Mild right-sided perinephric edema. 1.1 cm cyst in the superior pole of the right kidney. Normal appearance of the left kidney. No left-sided hydronephrosis. Colonic diverticulosis. The remainder of the GI tract is incompletely distended but shows no gross abnormalities. The appendix is absent. No retroperitoneal, pelvic sidewall, or mesenteric adenopathy. Atherosclerotic vascular calcifications. Degenerative changes of the spine. Osteopenia. Impression : 1. Moderate to severe dilation of the right renal pelvis and calices. Mild right-sided perinephric edema. 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 Please note that all CT scans at this facility use dose modulation, iterative reconstruction, and/or weight-based dosing when appropriate to reduce radiation dose to as low as reasonably achievable. Dictated by Derrick Rosario MD @ 03/09/2024 8:56:38 AM (Electronically Signed)
--- OUTSIDE RECORDS SUMMARY | 2024-03-08 02:00 | XMS_ITS | Encounter Summary ---
Author Organization [facility] [place] Address [address] 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 [N13.5] Procedures UT CYSTOSCOPY,INSERT URETERAL STENT UT UROGRAPHY, RETROGRADE W/WO KUB CYSTOSCOPY , RIGHT RETROGRADE PYELOGRAM , POSSIBLE RIGHT STENT EXCHANGE Periop Services [address], [address] [place] [address] Referral ID Status Reason Start Date Expiration Date Visits Re quested Visits Authorized [id number] 1 1 Encounter Details Date Type Department Care Team (Late st Contact Info) Description 02/17/2024 10:32 AM CDT - 02/18/2024 5:22 PM CDT Emergency [facility] Extended Recovery and Short Stay [address] [facility] [place] [address] Sandro Collado MD [facility] [address] [place] [address] Benjamin Moss DO [address] [address] Essential hypertension (Primary Dx); Hypertensive urgency; Ureteral stent present; Renal insufficiency; Anemia, unspecified type Discharge Disposition: Home or Self Care Social History Tobacco Use Types Packs/Day Years Used Date Smoking Tobacco: Never Smokeless Tobacco: Never Alcohol Use Standard Drinks/Week Comments No 0 (1 standard drink = 0.6 oz pur e alcohol) Adolescent Education Answer Date Record ed Getting School Help Needed Not on file 02/16 Sex and Gender Information Value Date Recorded Sex Assigned at Not on file Gender Identity Not on file Sexual Orientation Not on file documented as of this encounter Last Filed Vital Signs Vital Sign Reading Time Taken Comments Blood Pressure 155/61 02/18/2024 3:42 PM CDT Pulse 72 02/18/2024 3:42 PM CDT Temperature 36.6 ??C (97.9 ??F) 02/18/2024 3:42 PM CD T Respiratory Rate 16 02/18/2024 3:42 PM CDT Oxygen Saturation 100% 02/18/2024 3:42 PM CDT Inhaled Oxygen Concentration - - Weight 74.8 kg (165 lb) 02/17/2024 10:23 AM CDT Height 160 cm (5' 3) 02/17/2024 10:23 AM CDT Body Mass Index 29.23 02/17/2024 10:23 AM CDT documented in this encounter Discharge Summaries * Benjamin Brandt RN - 02/18/2024 5:22 PM CDT PRIMARY Concern: Hypertension SAFETY RISK Concerns (fall risk, behaviors, etc.): Fall risk due to ECHAVARRIA Isolation/Type: Tests/Procedures for NEXT shift: Cystoscopy at later date Consults? (Pending/following, signed-off?) Where is patient from? (Home, TCU, etc.): Home Other Important info for NEXT shift: UA sent, awaiting cultures Anticipated DC date & active delays: 02/18/24 SUMMARY NOTE: Orientation/Cognitive: A&Ox4 Observation Goals (Met/ Not Met): Met Mobility Level/Assist Equipment: Independent with cane in room Antibiotics & Plan (IV/po, length of tx left): Pain Management: PRN tylenol given for ECHAVARRIA Tele/VS/O2: VSS on RA ABNL Lab/BG: Diet: Cardiac, no caffeine Bowel/Bladder: Continent Skin Concerns: Abdominal scabs Drains/Devices: None Patient Stated Goal for Today: Go home Patient cleared to discharge by hospitalist after receiving echocardiogram results. Patient given discharge medications and AVS; education provided and questions answered. Tele and IV removed. Patient changed into home clothing and all belongings gathered. Patient brought down to door 2 by occupational health nursing director. * Moy Stewart NP - 02/18/2024 4:22 PM CDT [facility] Hospitalist Discharge Summary Date of Admission: 02/17/2024 Date of Discharge: 02/18/2024 Discharging Provider: Moy Stewart NP Discharge Service: Hospitalist Service Discharge Diagnoses Uncontrolled hypertension Troponin elevation likely from demand ischemia from too much hypertension Recent TIA Ureteral stricture status post stenting Clinically Significant Risk Factors # Overweight: Estimated body mass index is 29.23 kg/m?? as calculated from the following: Height as of this encounter: 1.6 m (5' 3). Weight as of this encounter: 74.8 kg (165 lb). Follow-ups Needed After Discharge Follow up with PCP Unresulted Labs Ordered in the Past 30 Days of this Admission Date and Time Order Name Status Description 02/18/2024 11:33 AM Urine Culture In process These results will be followed up by primary care provider Discharge Disposition Discharged to home Condition at discharge: Stable Hospital Course Sun Aleman is a 83 year old female admitted on 02/17/2024 with uncontrolled hypertension Uncontrolled hypertension Previously was well managed on losartan 50, hydrochlorothiazide 12.5 daily, and metoprolol She stopped these meds, lost 24 lbs and then started plant based diet with initial improvement of blood pressures in the first part of the year Now worse in the last week with TIA and headache No major signs of end organ damage, but they cancelled her ureteral stent removal today Overall favor restarting her previous regimen No obvious other issues with NSAID, etoh use. She did gain back about 5 lbs she lost. Plan - observation - increase losartan 50 mg to bid. -Add hydrochlorothiazide 12.5 daily at discharge -Follow up with PCP within 7 days for hospital follow up and to continue blood pressure management. - TSH 1.38 Troponin elevation likely from demand ischemia from too much hypertension Troponin 15-->15-->15 flat Recent TIA Had some transient speech difficulty and was seen for TIA at [facility] where they obtained an MRI and it was negative Plan - Continue home medications Ureteral stricture status post stenting Was due for CYSTOSCOPY , RIGHT RETROGRADE PYELOGRAM , POSSIBLE RIGHT STENT EXCHANGE day of admission which was stopped due to elevated blood pressure of 220's Plan - camn follow-up with urology as outpatient Consultations This Hospital Stay None Code Status Full Code Time Spent on this Encounter I, Moy Stewart NP, personally saw the patient today and spent greater than 30 minutes discharging this patient. Moy Stewart NP [facility] EXTENDED RECOVERY AND SHORT STAY [address] [place] [id number] Physical Exam Vital Signs: Temp: 97.9 ??F (36.6 ??C) Temp src: Oral BP: (!) 155/61 Pulse: 72 Resp: 16 SpO2: 100 %O2 Device: None (Room air) Weight: 165 lbs 0 oz Physical Exam Vitals reviewed. Cardiovascular: Rate and Rhythm: Normal rate and regular rhythm. Heart sounds: Normal heart sounds. Pulmonary: Effort: Pulmonary effort is normal. Breath sounds: Normal breath sounds and air entry. Abdominal: General: Bowel sounds are normal. Palpations: Abdomen is soft. Tenderness: There is no abdominal tenderness. Skin: General: Skin is warm and dry. Neurological: General: No focal deficit present. Mental Status: She is alert. Psychiatric: Attention and Perception: Attention normal. Mood and Affect: Mood normal. Speech: Speech normal. Behavior: Behavior normal. Behavior is cooperative. Thought Content: Thought content normal. Cognition and Memory: Cognition normal. Judgment: Judgment normal. Primary Care Physician RACHAEL BOSS Discharge Orders No discharge procedures on file. Significant Results and Procedures Results for orders placed or performed during the hospital encounter of 02/17/24 CT Head w/o Contrast Narrative EXAM: CT HEAD W/O CONTRAST LOCATION: [facility] DATE: 02/17/2024 INDICATION: severe headache, hypertension COMPARISON: None. TECHNIQUE: Routine CT Head without IV contrast. Multiplanar reformats. Dose reduction techniques were used. FINDINGS: INTRACRANIAL CONTENTS: No intracranial hemorrhage, extraaxial collection, or mass effect. No CT evidence of acute infarct. Mild to moderate presumed chronic small vessel ischemic changes. Moderate generalized volume loss. No hydrocephalus. VISUALIZED ORBITS/SINUSES/MASTOIDS: Prior bilateral cataract surgery. Visualized portions of the orbits are otherwise unremarkable. No paranasal sinus mucosal disease. No middle ear or mastoid effusion. BONES/SOFT TISSUES: No acute abnormality. Impression IMPRESSION: 1. No CT evidence for acute intracranial process. 2. Brain atrophy and presumed chronic microvascular ischemic changes as above. Echocardiogram Complete Value LVEF 60-65% Narrative [id number]^PAT^MOY^TC [facility] Echocardiography Laboratory [address] [place] [address] Name: SUN ALEMAN : 1940 Study Date: 02/18/2024 10:07 AM Age: 83 yrs Gender: Female Patient Location: [facility] Reason For Study: Hypertension (HTN) Ordering Physician: MOY STEWART Referring Physician: Rachael Boss Performed By: Howard Ruiz BSA: 1.8 m2 Height: 63 in Weight: 165 lb HR: 74 BP: 153/73 mmHg Procedure Complete Portable Echo Adult. Interpretation Summary 1. Left ventricular systolic function is normal. The visual ejection fraction is 60-65%. 2. No regional wall motion abnormalities noted. 3. The right ventricle is normal in structure, function and size. 4. The aortic valve is trileaflet with aortic valve sclerosis. There is mild (1+) aortic regurgitation. Left Ventricle The left ventricle is normal in size. There is normal left ventricular wall thickness. Left ventricular systolic function is normal. The visual ejection fraction is 60-65%. Diastolic Doppler findings (E/E' ratio and/or other parameters) suggest left ventricular filling pressures are indeterminate. No regional wall motion abnormalities noted. Right Ventricle The right ventricle is normal in structure, function and size. Atria The left atrium is moderately dilated. The right atrium is moderately dilated. There is no color Doppler evidence of an atrial shunt. Mitral Valve The mitral valve is normal in structure and function. Tricuspid Valve The tricuspid valve is normal in structure and function. There is trace tricuspid regurgitation. Aortic Valve The aortic valve is trileaflet with aortic valve sclerosis. There is mild (1+) aortic regurgitation. Pulmonic Valve The pulmonic valve is not well seen, but is grossly normal. Vessels Normal size aorta. IVC diameter <2.1 cm collapsing >50% with sniff suggests a normal RA pressure of 3 mmHg. Pericardium There is no pericardial effusion. Rhythm Sinus rhythm was noted. MMode/2D Measurements & Calculations IVSd: 0.90 cm LVIDd: 4.8 cm LVIDs: 2.2 cm LVPWd: 1.0 cm FS: 53.1 % LV mass(C)d: 158.8 grams LV mass(C)dI: 89.1 grams/m2 Ao root diam: 3.5 cm LA dimension: 3.8 cm asc Aorta Diam: 3.6 cm LA/Ao: 1.1 LVOT diam: 1.9 cm LVOT area: 2.8 cm2 Ao root diam index Ht(cm/m): 2.2 Ao root diam index BSA (cm/m2): 1.9 Asc Ao diam index BSA (cm/m2): 2.0 Asc Ao diam index Ht(cm/m): 2.3 LA Volume (BP): 36.4 ml LA Volume Index (BP): 20.4 ml/m2 RV Base: 2.7 cm RWT: 0.42 TAPSE: 2.3 cm Doppler Measurements & Calculations MV E max dieudonne: 116.0 cm/sec MV A max dieudonne: 113.0 cm/sec MV E/A: 1.0 MV dec time: 0.20 sec AI P1/2t: 660.7 msec PA acc time: 0.09 sec E/E' av.0 Lateral E/e': 12.5 Medial E/e': 15.5 RV S Dieudonne: 11.2 cm/sec Report approved by: Jd Spain 02/18/2024 03:16 PM Discharge Medications Current Discharge Medication List CONTINUE these medications which have NOT CHANGED Details levothyroxine (SYNTHROID/LEVOTHROID) 88 MCG tablet Take 88 mcg by mouth daily losartan (COZAAR) 50 MG tablet Take 50 mg by mouth daily Magnesium Oxide 250 MG TABS Take 500 mg by mouth at bedtime Polyethylene Glycol 400 0.25 % GEL Apply 1-2 drops to eye every 2 hours as needed (dry eyes) Uses Blink brand vitamin D3 (CHOLECALCIFEROL) 50 mcg (2000 units) tablet Take 1 tablet by mouth daily Allergies Allergies Allergen Reactions Abdon Inhibitors Levsin Metoprolol Succinate Associated attestation - Huber Chand MD - 03/06/2024 8:51 AM CDT Physician Attestation I have reviewed and discussed with the advanced practice provider their discharge plan for Sun Overton. I did not participate in a shared visit by interviewing or examining the patient and thisshould be billed as an advanced practice provider only discharge. Huber Chand MD Date of Service (when I saw the patient): I did not personally see this patient today. documented in this encounter Medications at Time of Discharge Medication Sig Dispensed Refills Start Date End Date hydroCHLOROthiazide 12.5 MG tabletIndications:Essenti al hypertension Take 1 tablet (12.5 mg) by mouth daily 30 tablet 02/18/2024 levothyroxine (SYNTHROID/LEVOTHROID) 88 MCG tablet Take 88 mcg by mouth daily losartan (COZAAR) 50 MG tablet Take 50 mg by mouth daily Magnesium Oxide 250 MG TABS Take 500 mg by mouth at bedtime Polyethylene Glycol 400 0.25 % GEL Apply 1-2 drops to eye every 2 hours as needed (dry eyes) Uses Blink brand vitamin D3 (CHOLECALCIFEROL) 50 mcg (2000 units) tablet Take 1 tablet by mouth daily documented as of this encounter Progress Notes * Benjamin Brandt RN - 02/18/2024 4:30 PM CDT Images from the original note were not included. Observation goals PRIOR TO DISCHARGE -diagnostic tests and consults completed and resulted:Met (cystoscopy at later date). -vital signs normal or at patient baseline: Met Nurse to notify provider when observation goals have been met and patient is ready for discharge. * Sherrill Lake RN - 02/18/2024 12:11 PM CDT Observation goals PRIOR TO DISCHARGE -diagnostic tests and consults completed and resulted:Not met, Cysto cancelled urology to reschedule -vital signs normal or at patient baseline:Not met, BP elevated Nurse to notify provider when observation goals have been met and patient is ready for discharge. * Sherrill Lake RN - 02/18/2024 8:44 AM CDT Observation goals PRIOR TO DISCHARGE -diagnostic tests and consults completed and resulted:Not met, Cysto cancelled urology to reschedule -vital signs normal or at patient baseline:Not met, BP elevated Nurse to notify provider when observation goals have been met and patient is ready for discharge. * Leesa Lorenzo RN - 02/18/2024 2:40 AM CDT Observation goals PRIOR TO DISCHARGE Comments: -diagnostic tests and consults completed and resulted:Not met, Cysto cancelled urology toreschedule -vital signs normal or at patient baseline:Not met, BP elevated Nurse to notify provider when observation goals have been met and patient is ready for discharge. * Leesa Lorenzo RN - 02/17/2024 10:39 PM CDT Observation goals PRIOR TO DISCHARGE Comments: -diagnostic tests and consults completed and resulted:Not met, Cysto cancelled urology toreschedule -vital signs normal or at patient baseline:Not met, BP elevated Nurse to notify provider when observation goals have been met and patient is ready for discharge. * Jenniffer Hood RN - 02/17/2024 6:38 PM CDT Admission/Transfer from: home 2 RN parveen assessment completed. Yes Name of 2nd RN: Tatum Castle Significant findings include: dry skin WO Nurse Consult Ordered? No * Jenniffer Hood RN - 02/17/2024 4:00 PM CDT Observation goals -diagnostic tests and consults completed and resulted : not met. Cysto cancelled -vital signs normal or at patient baseline : not met. BP elevated Nurse to notify provider when observation goals have been met and patient is ready for discharge. * Jenniffer Hood RN - 02/17/2024 3:38 PM CDT RECEIVING UNIT ED HANDOFF REVIEW ED Nurse Handoff Report was reviewed by: Jenniffer Hood RN on February 17, 2024 at 3:38 PM documented in this encounter H&P Notes * Benjamin Moss, - 02/17/2024 1:13 PM CDT [facility] History and Physical - Hospitalist Service Date of Admission: 02/17/2024 Assessment & Plan Sun Aleman is a 83 year old female admitted on 02/17/2024 with uncontrolled hypertension Uncontrolled hypertension Previously was well managed on losartan 50, hydrochlorothiazide 12.5 daily, and metoprolol She stopped these meds, lost 24 lbs and then started plant based diet with initial improvement of blood pressures in the first part of the year Now worse in the last week with TIA and headache No major signs of end organ damage, but they cancelled her ureteral stent removal today Overall favor restarting her previous regimen No obvious other issues with NSAID, etoh use. She did gain back about 5 lbs she lost. Plan - observation - increase losartan 50 mg to bid. Next step would be restarting hydrochlorothiazide or perhaps bb (note HR of 56 today) - check tsh Troponin elevation likely from demand ischemia from too much hypertension Plan - trend tropoin Recent TIA Had some transient speech difficulty and was seen for TIA at [facility] where they obtained an MRI and it was negative Plan - resume home medications Ureteral stricture status post stenting Was due for CYSTOSCOPY , RIGHT RETROGRADE PYELOGRAM , POSSIBLE RIGHT STENT EXCHANGE day of admission which was stopped due to elevated blood pressure of 220's Plan - camn follow-up with urology as outpatient Diet: Regular Diet Adult DVT Prophylaxis: Pneumatic Compression Devices Fisher Catheter: Not present Lines: None Cardiac Monitoring: None Code Status: regular Clinically Significant Risk Factors Present on Admission # Hypertension: Noted on problem list # Overweight: Estimated body mass index is 29.23 kg/m?? as calculated from the following: Height as of this encounter: 1.6 m (5' 3). Weight as of this encounter: 74.8 kg (165 lb). # Asthma: noted on problem list Disposition Plan Medically Ready for Discharge: Anticipated Tomorrow Benjamin Moss DO Hospitalist Service [facility] Securely message with [employer] (more info) Text page via [facility] [employer] (Inspect Manager) Paging/Directory Chief Complaint Elevated blood pressure History is obtained from the patient History of Present Illness Sun Aleman is a 83 year old female hypothyroidism, htn who present from preop due to elevated BP. The patient has been having elevated BP for the last week, with blood pressure generally in the 180s. She previously reports that she was well maintained on the losartan, hydrochlorothiazide, and metoprolol regimen but was having some ill defined side effects so stopped taking them, lost 24 lbs, and started a plant based diet around the start of the year 2023. She took her blood presssure and it was actually great during this time, often times 130 sbp off of her medictions. However, her bp worsened in the last week. She was seen for transient aphasia at [place] ED and diagnosed with possible TIA. MRI and CT was negative. She was started on losartan 50 mg daily about 4 days. Ago. She had a preop with her PCP yesterday in anticipation of ureteral stent removal today. In preop today, she was found to have a blood pressure of 220 and so received labetalol. Surgery was cancelled and she was sent to the ED Past Medical History Past Medical History: Diagnosis Date Gastro-oesophageal reflux disease H/O Guerra's palsy Hyperlipidemia Hypertension Hypothyroidism Osteopenia PONV (postoperative nausea and vomiting) Sleep apnea Past Surgical History Past Surgical History: Procedure Laterality Date APPENDECTOMY CHOLECYSTECTOMY COLONOSCOPY DISKECTOMY, LUMBAR, ADDTNL SP HC ENLARGE BREAST WITH IMPLANT LEG SURGERY REPAIR ENTROPION 09/07/2012 Procedure: REPAIR ENTROPION; RIGHT LOWER LID ENTROPION REPAIR; Surgeon: Benjamin Mckeon MD; Location: [facility] Prior to Admission Medications Prior to Admission Medications Prescriptions Last Dose Informant Patient Reported? Taking? Magnesium Oxide 250 MG TABS 02/16/2024 at hs Self Yes Yes Sig: Take 500 mg by mouth at bedtime Polyethylene Glycol 400 0.25 % GEL prn at prn Self Yes Yes Sig: Apply 1-2 drops to eye every 2 hours as needed (dry eyes) Uses Blink brand levothyroxine (SYNTHROID/LEVOTHROID) 88 MCG tablet 02/17/2024 at am Self Yes Yes Sig: Take 88 mcg by mouth daily losartan (COZAAR) 50 MG tablet 02/17/2024 at am Self Yes Yes Sig: Take 50 mg by mouth daily vitamin D3 (CHOLECALCIFEROL) 50 mcg (2000 units) tablet 02/17/2024 at am Self Yes Yes Sig: Take 1 tablet by mouth daily Facility-Administered Medications: None Review of Systems The 5 point Review of Systems is negative other than noted in the HPI or here. Social History I have reviewed this patient's social history and updated it with pertinent information if needed. Social History Tobacco Use Smoking status: Never Smokeless tobacco: Never Substance Use Topics Alcohol use: No Drug use: Not Currently Family History No significant family history, including no history of: Allergies Allergies Allergen Reactions Abdon Inhibitors Levsin Metoprolol Succinate Physical Exam Vital Signs: Temp: 97 ??F (36.1 ??C) Temp src: Oral BP: (!) 178/64 Pulse: 73 Resp: 14 SpO2: 100 % O2 Device: None (Room air) Weight: 165 lbs 0 oz General Appearance: NAD, pleasant and conversant. Mildly anxious Respiratory: CTAB Cardiovascular: RRR GI: soft, nontender and nondistended Skin: clearn and dry Other: = Medical Decision Making 55 MINUTES SPENT BY ME on the date of service doing chart review, history, exam, documentation & further activities per the note. Data I have personally reviewed the following data over the past 24 hrs: 8.4 \ 10.4 (L) / 329 138 104 15.6 / 95 4.4 24 1.16 (H) \ Trop: 15 (H) BNP: N/A TSH: 1.38 T4: N/A A1C: N/A Imaging results reviewed over the past 24 hrs: No results found for this or any previous visit (from the past 24 hour(s)). documented in this encounter ED Notes * Suman Garza RN - 02/17/2024 3:46 PM CDT Pt reporting headache/pressure unrelieved by tylenol. BP 169/67. RN paged Dr. Moss, updatingon pt's condition. Update: MD returned call. Per , RN to administer oral oxycodone for pain and send to head CT. MD to order one-time dose of IV dilaudid for breakthrough pain. RN called receiving RN, updating on MD call and plan of care as pt is in room 5512 now. RN is aware. * Suman Garza RN - 02/17/2024 12:54 PM CDT [facility] ED Nurse Handoff Report ED Chief complaint: Hypertension ED Diagnosis: Final diagnoses: Hypertensive urgency Ureteral stent present Renal insufficiency Anemia, unspecified type Code Status: Hospitalist to discuss with patient Allergies: Allergies Allergen Reactions Abdon Inhibitors Levsin Metoprolol Succinate Patient Story: Pt was in same day surgery to get a cystostent Pt had bp in the 200s systolics and given labetolol- 5mg IV Focused Assessment: BP (!) 178/64 Pulse 73 Temp 97 ??F (36.1 ??C) (Oral) Resp 14 Ht 1.6 m (5' 3) Wt 74.8 kg (165 lb) SpO2 100% BMI 29.23 kg/m?? Treatments and/or interventions provided: Medications hydrALAZINE (APRESOLINE) injection 10 mg (10 mg Intravenous $Given 02/17/24 8179) Patient's response to treatments and/or interventions: BP 178/64 To be done/followed up on inpatient unit: per MD orders Does this patient have any cognitive concerns?: none Activity level - Baseline/Home: Independent Activity Level - Current: Stand with Assist Patient's Preferred language: Nicaraguan Culled Fruit Packer Needed?: No Isolation: None Infection: Not Applicable Patient tested for COVID 19 prior to admission: NO Bariatric?: No Vital Signs: Vitals: 02/17/24 1110 02/17/24 1130 02/17/24 1200 02/17/24 1230 BP: (!) 208/73 (!) 203/70 (!) 199/75 (!) 178/64 Pulse: 61 56 54 73 Resp: 14 12 12 14 Temp: TempSrc: SpO2: 99% 100% 100% 100% Weight: Height: Cardiac Rhythm: Was the PSS-3 completed: Yes What interventions are required if any? Family Comments: pt's dtr at bedside For the majority of the shift this patient's behavior was Green. Behavioral interventions performed were none. ED NURSE PHONE NUMBER: [phone] * Fawad Chapa RN - 02/17/2024 10:21 AM CDT Pt was in same day surgery to get a cystostent Pt had bp in the 200s systolics and given labetolol- 5mg IV * Sandro Collado MD - 02/17/2024 10:18 AM CDT History Chief Complaint: HTN HPI Sun Aleman is a 83 year old female who presents from the preop area for evaluation of hypertension. She was previously scheduled to have a ureteral stent removed by Dr. SALAZAR with urology today,but when she showed up with systolic blood pressure in the 220s and a headache, she was given 5 mg of IV labetalol and her blood pressure improved to 201/68. She was deemed too high risk for anesthesia so the case was canceled and she was sent to the ED for evaluation. She reports she has a slight headache but not nearly as bad as earlier this week, she states she was in the [place] emergency department on several occasions over the past week, once for an episode of speech difficulty that res olved on its own and another for a headache and continued high blood pressures over 200s. 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 She denies any chest pain. No current speech symptoms. She lives with her who has been feeling well. Independent Historian: Daughter at bedside, who expresses concern about recent visits to the [place] emergency department. Review of External Notes: I reviewed the anesthesia note from earlier today in reference to her hypertension and IV labetalol. Medications: albuterol (PROVENTIL) (2.5 MG/3ML) 0.083% neb solution ascorbic acid 1000 MG TABS tablet cholecalciferol (VITAMIN D3) 10 mcg (400 units) TABS tablet diphenhydrAMINE-acetaminophen (TYLENOL PM) 25-500 MG tablet HYDROcodone-acetaminophen 5-325 MG per tablet Levothyroxine Sodium (SYNTHROID PO) Losartan Potassium (COZAAR PO) magnesium glycinate 100 MG CAPS capsule omeprazole (PRILOSEC) [address] capsule Past Medical History: Past Medical History: Diagnosis Date Chronic atrial fibrillation (H) Gastro-oesophageal reflux disease H/O Guerra's palsy Hyperlipidemia Hypertension Hypothyroidism Osteopenia PONV (postoperative nausea and vomiting) Sleep apnea Patient Active Problem List Diagnosis Date Noted Diaphragmatic hernia 02/17/2024 Priority: Medium Edema 02/17/2024 Priority: Medium echo w/ EF 60% 01/31 Vitamin D deficiency 02/17/2024 Priority: Medium Renal insufficiency 02/17/2024 Priority: Medium Hypertensive urgency 02/17/2024 Priority: Medium Anemia, unspecified type 02/17/2024 Priority: Medium Ureteral stent present 02/17/2024 Priority: Medium Asthma 02/16/2024 Priority: Medium CHI (closed head injury) 02/16/2024 Priority: Medium Mass of right lung 02/16/2024 Priority: Medium TIA (transient ischemic attack) 02/16/2024 Priority: Medium Anemia 12/24/2023 Priority: Medium Hydronephrosis with ureteral stricture, not elsewhere classified 12/24/2023 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: Medium 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 12/24/2023 Priority: Medium Atrial fibrillation, unspecified type (H) 12/18/2022 Priority: Medium Hypertensive kidney disease, stage V (H) 01/05/2022 Priority: Medium Aortic valve regurgitation 12/08/2021 Priority: Medium Mitral valve regurgitation 12/08/2021 Priority: Medium Gastroesophageal reflux disease without esophagitis 10/24/2021 Priority: Medium Chronic fibrosis of lung (H) 10/23/2021 Priority: Medium Essential hypertension 07/31/2021 Priority: Medium long-term (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 [place] continues to confirm no change 2020 Arthritis of left foot 05/24/2018 Priority: Medium Adjustment disorder with mixed anxiety and depressed mood 06/30/2015 Priority: Medium Insomnia, unspecified 01/26/2008 Priority: Medium Physical Exam Patient Vitals for the past 24 hrs: BP Temp Temp src Pulse Resp SpO2 Height Weight 02/17/24 1604 (!) 170/69 97.4 ??F (36.3 ??C) Oral 77 16 100 % -- -- 02/17/24 1544 (!) 169/67 -- -- 78 14 100 % -- -- 02/17/24 1230 (!) 178/64 -- -- 73 14 100 % -- -- 02/17/24 1200 (!) 199/75 -- -- 54 12 100 % -- -- 02/17/24 1130 (!) 203/70 -- -- 56 12 100 % -- -- 02/17/24 1110 (!) 208/ -- -- 61 14 99 % -- -- 02/17/24 1024 (!) -- -- -- -- -- -- -- 02/17/24 1023 -- 97 ??F (36.1 ??C) Oral 66 16 99 % 1.6 m (5' 3) 74.8 kg (165 lb) Physical Exam General: Nontoxic-appearing woman sitting upright in room 26, daughter at bedside HENT: mucous membranes moist, OP clear, TMs clear Eyes: pupils normal without nystagmus, no photophobia CV: regular rate as above, regular rhythm Resp: normal effort, speaks in full phrases, no stridor, no cough observed GI: abdomen soft and nontender MSK: no bony tenderness to face, skull, or cervical spine Skin: appropriately warm and dry, no petechiae, no vesicles Neuro: awake, alert, clear speech, fully oriented, face symmetric, basin cleaner normal, strength and sensation intact in all extr, no nuchal rigidity, ambulatory without ataxia Psych: cooperative, pleasant Emergency Department Course Electrocardiogram ECG taken at 1049, ECG interpreted at 1140 by Holley Collado MD Sinus rhythm, no ST elevation, artifact present especially in leads V3 and V6 Rate 60 bpm. UT interval 158. QRS duration 80. QTc 430 Laboratory: Labs Ordered and Resulted from Time of ED Arrival to Time of ED Departure BASIC METABOLIC PANEL - Abnormal Result Value Sodium 138 Potassium 4.4 Chloride 104 Carbon Dioxide (CO2) 24 Anion Gap 10 Urea Nitrogen 15.6 Creatinine 1.16 (*) GFR Estimate 47 (*) Calcium 9.4 Glucose 95 CBC WITH PLATELETS AND DIFFERENTIAL - Abnormal WBC Count 8.4 RBC Count 3.59 (*) Hemoglobin 10.4 (*) Hematocrit 32.9 (*) MCV 92 MCH 29.0 MCHC 31.6 RDW 15.3 (*) Platelet Count 329 % Neutrophils 44 % Lymphocytes 44 % Monocytes 10 % Eosinophils 1 % Basophils 1 % Immature Granulocytes 0 NRBCs per 100 WBC 0 Absolute Neutrophils 3.7 Absolute Lymphocytes 3.8 Absolute Monocytes 0.8 Absolute Eosinophils 0.1 Absolute Basophils 0.1 Absolute Immature Granulocytes 0.0 Absolute NRBCs 0.0 TROPONIN T, HIGH SENSITIVITY - Abnormal Troponin T, High Sensitivity 15 (*) TSH WITH FREE T4 REFLEX - Normal TSH 1.38 Emergency Department Course: Reviewed: I reviewed nursing notes, vitals, and past medical history Assessments/Consultations/Discussion of Management or Tests : I obtained history and examined the patient as noted above. ED Course as of 02/17/24 1605 Juliet February 17, 2024 1150 I rechecked patient 1237 I rechecked patient, BP 178/64. Patient declined analgesics. [address] Moss, Hospitalist, who accepts care. Interventions: Medications senna-docusate (SENOKOT-S/PERICOLACE) 8.6-50 MG per tablet 1 tablet (has no administration in time range) Or senna-docusate (SENOKOT-S/PERICOLACE) 8.6-50 MG per tablet 2 tablet (has no administration in time range) ondansetron (ZOFRAN ODT) ODT tab 4 mg (has no administration in time range) Or ondansetron (ZOFRAN) injection 4 mg (has no administration in time range) hydrALAZINE (APRESOLINE) injection 10 mg (has no administration in time range) losartan (COZAAR) tablet 50 mg (has no administration in time range) acetaminophen (TYLENOL) tablet 650 mg (650 mg Oral $Given 02/17/24 1435) Or acetaminophen (TYLENOL) Suppository 650 mg ( Rectal See Alternative 02/17/24 1435) oxyCODONE (ROXICODONE) tablet 5 mg (has no administration in time range) naloxone (NARCAN) injection 0.2 mg (has no administration in time range) Or naloxone (NARCAN) injection 0.4 mg (has no administration in time range) Or naloxone (NARCAN) injection 0.2 mg (has no administration in time range) Or naloxone (NARCAN) injection 0.4 mg (has no administration in time range) hydrALAZINE (APRESOLINE) injection 10 mg (10 mg Intravenous $Given 02/17/24 1207) Social Determinants of Health affecting care: Healthcare Access/Compliance Disposition: Admit to Dr. Moss Impression & Plan Medical Decision Making: This very pleasant woman presents with concern for significantly elevated blood pressures. She has had recent symptoms that were presumably related, including transient speech disturbance number of days ago, though she has had head CT and MRI of her brain, according to her report, at an outside facility recently that showed no evidence of ischemic stroke. Unfortunately, today's previously planned surgical procedure had to be canceled because of her hypertension. She was given IV labetalol by the anesthesia team and additional IV hydralazine here with some improvement in her blood pressure. I explained to this pleasant patient why the goal is not immediate normalization of her blood pressure, she demonstrates understanding of this. However, she and her daughter are understandably frustrated by her multiple visits to various facilities this week related to her blood pressure and desire hospitalization to optimize her blood pressure control given that this is now her third visit with blood pressures over 200s, and even yesterday her blood pressure was quite elevated in clinic. She expre sses that she cannot get into a clinic until February and this complicates her care and further supports the need for hospitalization. She does not have chest pain or other concerning symptoms at this time, I do not think that immediate repeat neuroimaging is indicated. I have arranged for her to be admitted to a monitored bed in the care of the hospitalist service. Troponin minimally elevated though this is not thought likely to be a primary acute coronary syndrome so anticoagulation was deferred pending clinical course and further care. Diagnosis: ICD-10-CM 1. Hypertensive urgency I16.0 2. Ureteral stent present Z96.0 3. Renal insufficiency N28.9 4. Anemia, unspecified type D64.9 02/17/2024 MD Heaven Lobo Jeffrey Alan, MD 02/17/24 1602 documented in this encounter Miscellaneous Notes * Plan of Care - Sherrill Lake RN - 02/18/2024 2:27 PM CDT Goal Outcome Evaluation: Plan of Care Reviewed With: patient PRIMARY Concern: Hypertension SAFETY RISK Concerns (fall risk, behaviors, etc.): Fall risk due to ECHAVARRIA Isolation/Type: Tests/Procedures for NEXT shift: Echo complete, awaiting results Consults? (Pending/following, signed-off?) Where is patient from? (Home, TCU, etc.): Home Other Important info for NEXT shift: UA sent, awaiting cultures Anticipated DC date & active delays: TBD SUMMARY NOTE: Orientation/Cognitive: A&Ox4 Observation Goals (Met/ Not Met): Not met; HTN Mobility Level/Assist Equipment: Independent with cane in room Antibiotics & Plan (IV/po, length of tx left): Pain Management: PRN tylenol given for ECHAVARRIA Tele/VS/O2: VSS on RA ABNL Lab/BG: Diet: Cardiac, no caffeine Bowel/Bladder: Continent Skin Concerns: Abdominal scabs Drains/Devices: IV SL Patient Stated Goal for Today: * Plan of Care - Leesa Lorenzo RN - 02/18/2024 6:21 AM CDT Goal Outcome Evaluation: Plan of Care Reviewed With: patient Overall Patient Progress: improvingOverall Patient Progress: improving PRIMARY Concern: Uncontrolled BPs SAFETY RISK Concerns (fall risk, behaviors, etc.): Fall risk Isolation/Type: NA Tests/Procedures for NEXT shift: NA Consults? (Pending/following, signed-off?) NA Where is patient from? (Home, TCU, etc.): NA Other Important info for NEXT shift: Neuros intact Anticipated DC date & active delays: 1-2 days pending blood pressure control SUMMARY NOTE: Orientation/Cognitive: A&Ox4 Observation Goals (Met/ Not Met): Not met Mobility Level/Assist Equipment: SBA w/ Cane Antibiotics & Plan (IV/po, length of tx left): NA Pain Management: 07/06 headache PRN Tylenol and ice pack Tele/VS/O2: VSS ex HTN Tele:SR ABNL Lab/BG: Creat:1.16 Trop:15,15,15 Hgb:1.4 Diet: Cardiac Bowel/Bladder: Continent Skin Concerns: Scab to lower abd Drains/Devices: PIV:S/L Patient Stated Goal for Today: Headache control Observation goals PRIOR TO DISCHARGE Comments: -diagnostic tests and consults completed and resulted:Not met, Cysto cancelled urology toreschedule -vital signs normal or at patient baseline:Not met, BP elevated Nurse to notify provider when observation goals have been met and patient is ready for discharge. * Plan of Care - Jenniffer Hood RN - 02/17/2024 6:50 PM CDT Goal Outcome Evaluation: Plan of Care Reviewed With: patient PRIMARY Concern: Pt admitted for high BP in 200s from [facility] today SAFETY RISK Concerns (fall risk, behaviors, etc.): fall risk Isolation/Type: none Tests/Procedures for NEXT shift: labs in am. Cysto was cancelled today Consults? (Pending/following, signed-off?) Urology following outpatient Where is patient from? (Home, TCU, etc.): home Other Important info for NEXT shift: pt sent from [facility] today. Pt came in for cysto and ureter stent xchange. Due to high BP, surgery was cancelled. Pt is having headache. Improved with prn oxy. CT head was negative. Anticipated DC date & active delays: tomorrow SUMMARY NOTE: Orientation/Cognitive: A/O X4 Observation Goals (Met/ Not Met): not met Mobility Level/Assist Equipment: up SBA Antibiotics & Plan (IV/po, length of tx left): none Pain Management: headache present. Prn oxy and tylenol given. Tele/VS/O2: BP elevated to 170s. RA , SR ABNL Lab/BG: Cr 1.16 Diet: low fat / low sodium diet. No caffeine Bowel/Bladder: continence Skin Concerns: dry skin. Scab to mid abdomen Drains/Devices: PIV Patient Stated Goal for Today: to get better * Pharmacy-Admission Medication History - Mirian Tang [facility] - 02/17/2024 12:53 PM CDT Pharmacist Admission Medication History Admission medication history is complete. The information provided in this note is only as accurateas the sources available at the time of the update. Information Source(s): Patient and CareEverywhere/SureScripts via in-person Pertinent Information: Patient is no longer on Lopressor or Xarelto. 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 Changed: None Allergies reviewed with patient and updates made in EHR: no Medication History Completed By: Mirian Tang RPH 02/17/2024 12:53 PM FILM REPRODUCER Med List Medication Sig Last Dose levothyroxine (SYNTHROID/LEVOTHROID) 88 MCG tablet Take 88 mcg by mouth daily 02/17/2024 at am losartan (COZAAR) 50 MG tablet Take 50 mg by mouth daily 02/17/2024 at am Magnesium Oxide 250 MG TABS Take 500 mg by mouth at bedtime 02/16/2024 at hs Polyethylene Glycol 400 0.25 % GEL Apply 1-2 drops to eye every 2 hours as needed (dry eyes) Uses Blink brand prn at prn vitamin D3 (CHOLECALCIFEROL) 50 mcg (2000 units) tablet Take 1 tablet by mouth daily 02/17/2024 at am documented in this encounter Plan of Treatment Not on file documented as of this encounter Procedures Procedure Name Priority Date/Time Associated Diagnosis Comments UA MACROSCOPIC WITH REFLEX TO MICRO AND CULTURE STAT 02/18/2024 11:04 AM CDT URINE CULTURE STAT 02/18/2024 11:04 AM CDT ECHO COMPLETE Routine 02/18/2024 10:54 AM CDT BASIC METABOLIC PANEL Routine 02/18/2024 7:06 AM CDT TROPONIN T, HIGH SENSITIVITY Timed 02/18/2024 12:12 AM CDT TROPONIN T, HIGH SENSITIVITY Timed 02/17/2024 7:[address] HEAD W/O CONTRAST STAT 02/17/2024 4:29 PM CDT EXTRA TUBE STAT 02/17/2024 11:05 AM CDT EXTRA RED TOP TUBE STAT 02/17/2024 11 :05 AM CDT EXTRA BLUE TOP TUBE STAT 02/17/2024 1 1:05 AM CDT CBC WITH PLATELETS AND DIFFERENTIAL STAT 02/17/2024 11:05 AM CDT TROPONIN T, HIGH SENSITIVITY STAT 02/17/2024 11:05 AM CDT CBC WITH PLATELETS & DIFFERENTIAL STAT 02/17/2024 11:05 AM CDT TSH WITH FREE T4 REFLEX Add-On 02/17/2024 11:05 AM CDT BASIC METABOLIC PANEL STAT 02/17/2024 11:05 AM CDT EKG 12-LEAD, TRACING ONLY STAT 02/17/2024 10:49 AM CDT documented in this encounter Results * Urine Culture (02/18/2024 11:04 AM CDT) Culture <10,000 CFU/mL Urogenital callie 02/19/2024 9:57 AM CDT [facility] Urine MID-STREAM URINE SPECIMEN / Unknown Non-blood Collection / Unknown 02/18/2024 11:04 AM CDT 02/18/2024 11:33 AM CDT Moy Stewart NP LAB - MICR O GENERAL ORDERABLES [facility] Inf. Diseases Diag. Lab [address], [address] [place] [address] * (ABNORMAL) UA Macroscopic with reflex to Microscopic and Culture (02/18/2024 11:04 AM CDT) Color Urine Straw Colorless, Straw, Light Yellow, Yellow 02/18/2024 11:33 AM CDT LABORATORY Appearance Urine Clear Clear 02/18/20 11:33 AM CDT LABORATORY Glucose Urine Negative Negative mg/dL 02/18/2024 11:33 AM CDT LABORATORY Bilirubin Urine Negative Negative 11:33 AM CDT LABORATORY Ketones Urine Negative Negative mg/dL 02/18/2024 11:33 AM CDT LABORATORY Specific [place] Urine 1.011 1.003 - 1.035 02/18/2024 11:33 AM CDT LABORATORY Blood Urine Trace(A) Negative 02/18/2024 11:33 AM CDT LABORATORY pH Urine 6.5 5.0 - 7.0 02/18/2024 11:33 AM CDT LABORATORY Protein Albumin Urine Negative Negative mg/dL 02/18/2024 11:33 AM CDT LABORATORY Urobilinogen Urine Normal Normal, 2.0 mg/dL 02/18/2024 11:33 AM CDT LABORATORY Nitrite Urine Negative Negative 02/18/2024 11:33 AM CDT LABORATORY Leukocyte Esterase Urine Moderate(A) Negative 02/18/2024 11:33 AM CDT LABORATORY RBC Urine 4(H) <=2 /HPF 02/18/2024 11:33 AM CDT LABORATORY WBC Urine 8(H) <=5 /HPF 02/18/2024 11:33 AM CDT LABORATORY Squamous Epithelials Urine <1 <=1 /HPF 02/18/2024 11:33 AM CDT LABORATORY Urine MID-STREAM URINE SPECIMEN / Unknown Non-blood Collection / Unknown 02/18/2024 11:04 AM CDT 02/18/2024 11:24 AM CDT Narrative LABORATORY - 02/18/2024 11:33 AM CDT Urine Culture ordered based on laboratory criteria Moy Stewart BUILDING CERTIFIER LAB - URIN E ORDERABLES LABORATORY [facility] [address], [address] [place] [address], [place] [phone] * ECHO COMPLETE (02/18/2024 10:54 AM CDT) LVEF 60-65% CARDIOLOGY RESULTS Anatomical Region Laterality Modality Echocardiography 02/18/2024 10:0 7 AM CDT Narrative 02/18/2024 3:16 PM CDT [id number]^PAT^MOY^TC [facility] Echocardiography Laboratory [address] [place] [address] Name: SUN ALEMAN : 1940 Study Date: 02/18/2024 10:07 AM Age: 83 yrs Gender: Female Patient Location: [facility] Reason For Study: Hypertension (HTN) Ordering Physician: MOY STEWART Referring Physician: Rachael Boss Performed By: Howard Ruiz BSA: 1.8 m2 Height: 63 in Weight: 165 lb HR: 74 BP: 153/73 mmHg Procedure Complete Portable Echo Adult. Interpretation Summary 1. Left ventricular systolic function is normal. The visual ejection fraction is 60-65%. 2. No regional wall motion abnormalities noted. 3. The right ventricle is normal in structure, function and size. 4. The aortic valve is trileaflet with aortic valve sclerosis. There is mild (1+) aortic regurgitation. Left Ventricle The left ventricle is normal in size. There is normal left ventricular wall thickness. Left ventricular systolic function is normal. The visual ejection fraction is 60-65%. Diastolic Doppler findings (E/E' ratio and/or other parameters) suggest left ventricular filling pressures are indeterminate. No regional wall motion abnormalities noted. Right Ventricle The right ventricle is normal in structure, function and size. Atria The left atrium is moderately dilated. The right atrium is moderately dilated. There is no color Doppler evidence of an atrial shunt. Mitral Valve The mitral valve is normal in structure and function. Tricuspid Valve The tricuspid valve is normal in structure and function. There is trace tricuspid regurgitation. Aortic Valve The aortic valve is trileaflet with aortic valve sclerosis. There is mild (1+) aortic regurgitation. Pulmonic Valve The pulmonic valve is not well seen, but is grossly normal. Vessels Normal size aorta. IVC diameter <2.1 cm collapsing >50% with sniff suggests a normal RA pressure of 3 mmHg. Pericardium There is no pericardial effusion. Rhythm Sinus rhythm was noted. MMode/2D Measurements & Calculations IVSd: 0.90 cm LVIDd: 4.8 cm LVIDs: 2.2 cm LVPWd: 1.0 cm FS: 53.1 % LV mass(C)d: 158.8 grams LV mass(C)dI: 89.1 grams/m2 Ao root diam: 3.5 cm LA dimension: 3.8 cm asc Aorta Diam: 3.6 cm LA/Ao: 1.1 LVOT diam: 1.9 cm LVOT area: 2.8 cm2 Ao root diam index Ht(cm/m): 2.2 Ao root diam index BSA (cm/m2): 1.9 Asc Ao diam index BSA (cm/m2): 2.0 Asc Ao diam index Ht(cm/m): 2.3 LA Volume (BP): 36.4 ml LA Volume Index (BP): 20.4 ml/m2 RV Base: 2.7 cm RWT: 0.42 TAPSE: 2.3 cm Doppler Measurements & Calculations MV E max dieudonne: 116.0 cm/sec MV A max dieudonne: 113.0 cm/sec MV E/A: 1.0 MV dec time: 0.20 sec AI P1/2t: 660.7 msec PA acc time: 0.09 sec E/E' av.0 Lateral E/e': 12.5 Medial E/e': 15.5 RV S Dieudonne: 11.2 cm/sec Report approved by: Jd Spain 02/18/2024 03:16 PM Procedure Note Yajaira Vences MD - 02/18/2024 [id number]^PAT^MOY^TC [facility]chocardiography Laboratory [address] [place] [address] Name: SUN ALEMAN : 1940 Study Date: 02/18/2024 10:07 AM Age: 83 yrs Gender: Female Patient Location: [facility] Reason For Study: Hypertension (HTN) Ordering Physician: MOY STEWART Referring Physician: Rachael Boss Performed By: Howard Ruiz BSA: 1.8 m2 Height: 63 in Weight: 165 lb HR: 74 BP: 153/73 mmHg Procedure Complete Portable Echo Adult. Interpretation Summary 1. Left ventricular systolic function is normal. The visual ejectionfraction is 60-65%. 2. No regional wall motion abnormalities noted. 3. The right ventricle is normal in structure, function and size. 4. The aortic valve is trileaflet with aortic valve sclerosis. There is mild (1+) aortic regurgitation. Left Ventricle The left ventricle is normal in size. There is normal left ventricularwall thickness. Left ventricular systolic function is normal. The visualejection fraction is 60-65%. Diastolic Doppler findings (E/E' ratio and/or other parameters) suggest left ventricular filling pressures are indeterminate.No regional wall motion abnormalities noted. Right Ventricle The right ventricle is normal in structure, function and size. Atria The left atrium is moderately dilated. The right atrium is moderatelydilated. There is no color Doppler evidence of an atrial shunt. Mitral Valve The mitral valve is normal in structure and function. Tricuspid Valve The tricuspid valve is normal in structure and function. There is trace tricuspid regurgitation. Aortic Valve The aortic valve is trileaflet with aortic valve sclerosis. There is mild(1+) aortic regurgitation. Pulmonic Valve The pulmonic valve is not well seen, but is grossly normal. Vessels Normal size aorta. IVC diameter <2.1 cm collapsing >50% with sniffsuggests a normal RA pressure of 3 mmHg. Pericardium There is no pericardial effusion. Rhythm Sinus rhythm was noted. MMode/2D Measurements & Calculations IVSd: 0.90 cm LVIDd: 4.8 cm LVIDs: 2.2 cm LVPWd: 1.0 cm FS: 53.1 % LV mass(C)d: 158.8 grams LV mass(C)dI: 89.1 grams/m2 Ao root diam: 3.5 cm LA dimension: 3.8 cm asc Aorta Diam: 3.6 cm LA/Ao: 1.1 LVOT diam: 1.9 cm LVOT area: 2.8 cm2 Ao root diam index Ht(cm/m): 2.2 Ao root diam index BSA (cm/m2): 1.9 Asc Ao diam index BSA (cm/m2): 2.0 Asc Ao diam index Ht(cm/m): 2.3 LA Volume (BP): 36.4 ml LA Volume Index (BP): 20.4 ml/m2 RV Base: 2.7 cm RWT: 0.42 TAPSE: 2.3 cm Doppler Measurements & Calculations MV E max dieudonne: 116.0 cm/sec MV A max dieudonne: 113.0 cm/sec MV E/A: 1.0 MV dec time: 0.20 sec AI P1/2t: 660.7 msec PA acc time: 0.09 sec E/E' av.0 Lateral E/e': 12.5 Medial E/e': 15.5 RV S Dieudonne: 11.2 cm/sec Report approved by: Jd Spain 02/18/2024 03:16 PM Moy Stewart NP CV ECHO OR DERABLES * (ABNORMAL) Basic metabolic panel (02/18/2024 7:06 AM CDT) [facility] Sodium 139 135 - 145 mmol/L 02/18/2024 7:[address] [facility] Comment:Reference intervals for this test were updated on 06/22/2023 to more accurately reflect our healthy population. There may be differences in the flagging of prior results with similar values performed with this method. Interpretation of those prior results can be made in the context of the updated reference intervals. Potassium 4.2 3.4 - 5.3 mmol/L 02/18/2024 7:41 AM [facility] Chloride 107 98 - 107 mmol/L 02/18/2024 7:[address] [facility] Carbon Dioxide (CO2) 22 22 - 29 mmol/L 02/18/2024 7:41 AM CDT LABORATORY Anion Gap 10 7 - 15 mmol/L 02/18/2024 7:41 AM CDT LABORATORY Urea Nitrogen 18.2 8.0 - 23.0 mg/dL 02/18/2024 7:41 AM CDT LABORATORY Creatinine 1.23(H) 0.51 - 0.95 mg/dL 02/18/2024 7:41 AM T LABORATORY GFR Estimate 43(L) >60 mL/min/1. 73m2 02/18/2024 7:41 AM T LABORATORY Calcium 9.1 8.8 - 10.2 mg/dL 02/18/2024 7:41 AM T LABORATORY Glucose 87 70 - 99 mg/dL 02/18/2024 7:41 AM T LABORATORY Blood STRUCTURE OF RIGHT HAND / Unknown Venipuncture / Unknown 02/18/2024 7:06 AM CDT 02/18/2024 7:11 AM CDT Benjamin Moss DO LAB - BLOOD O RDERABLES LABORATORY [facility] [address] 1[address] floor, [address] [place] [address], [facility] [phone] * (ABNORMAL) Troponin T, High Sensitivity (02/18/2024 12:12 AM CDT) Troponin T, High Sensitivity 15(H) <=14 ng/L 02/18/2024 12:48 AM CDT LABORATORY Comment: Either a High Sensitivity Troponin T baseline (0 hours) value = 100 ng/L, or an increase in High Sensitivity Troponin T = 7 ng/L at 2 hours compared to 0 hours (2-0 hours), suggests myocardial injury, and urgent clinical attention is required. ?? If the 2-0 hours increase is <7 ng/L, a High Sensitivity Troponin T result above gender-specific reference ranges warrants further evaluation. Recommendations for further evaluation include correlation with clinical decision-making tool (e.g., HEART), a 3rd High Sensitivity Troponin T test 2 hours after the 2nd (a 20% change from baseline would represent concern), admission for observation, close PCC/cardiology follow-up, or urgent outpatient provocative testing. Blood STRUCTURE OF RIGHT HAND / Unknown Venipuncture / Unknown 02/18/2024 12:12 AM CDT 02/18/2024 12:26 AM CDT Benjamin Moss DO LAB - BLOOD O PUNEET LABORATORY [facility] [address] 1[address] floor, [address] [place] [address], [facility] [phone] * (ABNORMAL) Troponin T, High Sensitivity (02/17/2024 7:16 PM CDT) Troponin T, High Sensitivity 15(H) <=14 ng/L 02/17/2024 7:56 PM CDT LABORATORY Comment: Either a High Sensitivity Troponin T baseline (0 hours) value = 100 ng/L, or an increase in High Sensitivity Troponin T = 7 ng/L at 2 hours compared to 0 hours (2-0 hours), suggests myocardial injury, and urgent clinical attention is required. ?? If the 2-0 hours increase is <7 ng/L, a High Sensitivity Troponin T result above gender-specific reference ranges warrants further evaluation. Recommendations for further evaluation include correlation with clinical decision-making tool (e.g., HEART), a 3rd High Sensitivity Troponin T test 2 hours after the 2nd (a 20% change from baseline would represent concern), admission for observation, close PCC/cardiology follow-up, or urgent outpatient provocative testing. Blood STRUCTURE OF LEFT UPPER LIMB / Unknown Venipuncture / Unknown 02/17/2024 7:16 PM CDT 02/17/2024 7:33 PM CDT Benjamin Moss DO LAB - BLOOD O RDERABLES LABORATORY [facility] [address] 1[address] floor, [address] [place] [address], [facility] [phone] * CT Head w/o Contrast (02/17/2024 4:29 PM CDT) Anatomical Region Laterality Modality Head, SUBRAD CT NEURO, SUBRA D CT NEURO, UMP CT NEURO, RAD CT Computed Tomography 02/17/2024 4:29 PM CDT Impressions 02/17/2024 4:34 PM CDT IMPRESSION: 1. ??No CT evidence for acute intracranial process. 2. ??Brain atrophy and presumed chronic microvascular ischemic changes as above. Narrative 02/17/2024 4:34 PM CDT EXAM: CT HEAD W/O CONTRAST LOCATION: [facility] DATE: 02/17/2024 INDICATION: severe headache, hypertension COMPARISON: None. TECHNIQUE: Routine CT Head without IV contrast. Multiplanar reformats. Dose reduction techniques were used. FINDINGS: INTRACRANIAL CONTENTS: No intracranial hemorrhage, extraaxial collection, or mass effect. ??No CT evidence of acute infarct. Mild to moderate presumed chronic small vessel ischemic changes. Moderate generalized volume loss. No hydrocephalus. VISUALIZED ORBITS/SINUSES/MASTOIDS: Prior bilateral cataract surgery. Visualized portions of the orbits are otherwise unremarkable. No paranasal sinus mucosal disease. No middle ear or mastoid effusion. BONES/SOFT TISSUES: No acute abnormality. Procedure Note Linh Earl MD - 02/17/2024 EXAM: CT HEAD W/O CONTRAST LOCATION: [facility] DATE: 02/17/2024 INDICATION: severe headache, hypertension COMPARISON: None. TECHNIQUE: Routine CT Head without IV contrast. Multiplanar reformats.Dose reduction techniques were used. FINDINGS: INTRACRANIAL CONTENTS: No intracranial hemorrhage, extraaxial collection,or mass effect. No CT evidence of acute infarct. Mild to moderatepresumed chronic small vessel ischemic changes. Moderate generalizedvolume loss. No hydrocephalus. VISUALIZED ORBITS/SINUSES/MASTOIDS: Prior bilateral cataract surgery.Visualized portions of the orbits are otherwise unremarkable. No paranasalsinus mucosal disease. No middle ear or mastoid effusion. BONES/SOFT TISSUES: No acute abnormality. IMPRESSION: 1. No CT evidence for acute intracranial process. 2. Brain atrophy and presumed chronic microvascular ischemic changes asabove. Benjamin Moss DO IMG CT ORDERA BLES * TSH with free T4 reflex (02/17/2024 11:05 AM CDT) Pathologist [facility] [place] TSH 1.38 0.30 - 4.20 uIU/mL 02/17/2024 2:02 PM CDT LABORATORY Blood BLOOD SPECIMEN / Unknown Venipuncture / Unknown 02/17/2024 11:05 AM CDT 02/17/2024 11:10 AM CDT Benjamin Moss DO LAB - BLOOD O RDERABLES LABORATORY [facility] [address] 1[address], [address] [place] [address], [facility] [phone] * (ABNORMAL) Troponin T, High Sensitivity (02/17/2024 11:05 AM CDT) Pathologist [facility] [place] Troponin T, High Sensitivity 15(H) <=14 ng/L 02/17/2024 12:21 PM CDT LABORATORY Comment: Either a High Sensitivity Troponin T baseline (0 hours) value = 100 ng/L, or an increase in High Sensitivity Troponin T = 7 ng/L at 2 hours compared to 0 hours (2-0 hours), suggests myocardial injury, and urgent clinical attention is required. ?? If the 2-0 hours increase is <7 ng/L, a High Sensitivity Troponin T result above gender-specific reference ranges warrants further evaluation. Recommendations for further evaluation include correlation with clinical decision-making tool (e.g., HEART), a 3rd High Sensitivity Troponin T test 2 hours after the 2nd (a 20% change from baseline would represent concern), admission for observation, close PCC/cardiology follow-up, or urgent outpatient provocative testing. Blood BLOOD SPECIMEN / Unknown Venipuncture / Unknown 02/17/2024 11:05 AM CDT 02/17/2024 11:10 AM CDT Sandro Collado MD LAB - BLOOD ORD ERABLES LABORATORY [facility] [address], [address] [place] [address], [facility] [phone] * Extra Red Top Tube (02/17/2024 11:05 AM CDT) [facility] Signature Hold Specimen [facility] 02/17/2024 12:16 PM CDT LABORATORY Blood BLOOD SPECIMEN / Unknown Venipuncture / Unknown 02/17/2024 11:05 AM CDT 02/17/2024 11:10 AM CDT Sandro Collado MD LAB - BLOOD ORD ERAMELISSA LABORATORY [facility] [address], [address] [place] [address], [facility] [phone] * Extra Blue Top Tube (02/17/2024 11:05 AM CDT) [facility] Signature Hold Specimen [facility] 02/17/2024 12:16 PM CDT LABORATORY Blood BLOOD SPECIMEN / Unknown Venipuncture / Unknown 02/17/2024 11:05 AM CDT 02/17/2024 11:10 AM CDT Sandro Collado MD LAB - BLOOD ORD ERABLES LABORATORY [facility] [address], [address] [place] [address], [facility] [phone] * (ABNORMAL) CBC with platelets and differential (02/17/2024 11:05 AM CDT) [facility] WBC Count 8.4 4.0 - 11.0 10e3/uL 02/17/2024 11:14 AM CDT LABORATORY RBC Count 3.59(L) 3.80 - 5.20 10e6/uL 02/17/2024 11:14 AM CDT LABORATORY Hemoglobin 10.4(L) 11.7 - 15.7 g/dL 02/17/2024 11:14 AM CDT LABORATORY Hematocrit 32.9(L) 35.0 - 47.0 % 02/17/2024 11:14 AM CDT LABORATORY MCV 92 78 - 100 fL 02/17/2024 11:14 AM CDT LABORATORY MCH 29.0 26.5 - 33.0 pg 02/17/2024 11:14 AM CDT LABORATORY MCHC 31.6 31.5 - 36.5 g/dL 02/17/2024 11:14 AM CDT LABORATORY RDW 15.3(H) 10.0 - 15.0 % 02/17/2024 11:14 AM CDT LABORATORY Platelet Count 329 150 - 450 10e3/uL 02/17/2024 11:14 AM CDT LABORATORY % Neutrophils 44 % 02/17/2024 11:14 AM CDT LABORATORY % Lymphocytes 44 % 02/17/2024 11:14 AM CDT LABORATORY % Monocytes 10 % 02/17/2024 11:14 AM CDT LABORATORY % Eosinophils 1 % 02/17/2024 11:14 AM CDT LABORATORY % Basophils 1 % 02/17/2024 11:14 AM CDT LABORATORY % Immature Granulocytes 0 % 02/17/2024 11:14 AM CDT LABORATORY NRBCs per 100 WBC 0 <1 /100 024 11:14 AM CDT LABORATORY Absolute Neutrophils 3.7 1.6 - 8.3 10e3/uL 02/17/2024 11:14 AM CDT LABORATORY Absolute Lymphocytes 3.8 0.8 - 5.3 10e3/uL 02/17/2024 11:14 AM CDT LABORATORY Absolute Monocytes 0.8 0.0 - 1.3 10e3/uL 02/17/2024 11:14 AM CDT LABORATORY Absolute Eosinophils 0.1 0.0 - 0.7 10e3/uL 02/17/2024 11:14 AM CDT LABORATORY Absolute Basophils 0.1 0.0 - 0.2 10e3/uL 02/17/2024 11:14 AM CDT LABORATORY Absolute Immature Granulocytes 0.0 <=0.4 10e3/uL 02/17/2024 11:14 AM CDT LABORATORY Absolute NRBCs 0.0 10e3/uL 02/17/2024 11:14 AM CDT LABORATORY Blood BLOOD SPECIMEN / Unknown Venipuncture / Unknown 02/17/2024 11:05 AM CDT 02/17/2024 11:10 AM CDT Sandro Collado MD LAB - BLOOD ORD ERABLES LABORATORY [facility] [address], [address] [place] [address], [facility] [phone] * (ABNORMAL) Basic metabolic panel (02/17/2024 11:05 AM CDT) [facility] Sodium 138 135 - 145 mmol/L 02/17/2024 11:46 AM CDT LABORATORY Comment:Reference intervals for this test were updated on 06/22/2023 to more accurately reflect our healthy population. There may be differences in the flagging of prior results with similar values performed with this method. Interpretation of those prior results can be made in the context of the updated reference intervals. Potassium 4.4 3.4 - 5.3 mmol/L 02/17/2024 11:46 AM CDT LABORATORY Chloride 104 98 - 107 mmol/L 02/17/2024 11:46 AM CDT LABORATORY Carbon Dioxide (CO2) 24 22 - 29 mmol/L 02/17/2024 11:46 AM CDT LABORATORY Anion Gap 10 7 - 15 mmol/L 02/17/2024 11:46 AM CDT LABORATORY Urea Nitrogen 15.6 8.0 - 23.0 mg/dL 02/17/2024 11:46 AM CDT LABORATORY Creatinine 1.16(H) 0.51 - 0.95 mg/dL 02/17/2024 11:46 AM CDT LABORATORY GFR Estimate 47(L) >60 mL/min/1. 73m2 02/17/2024 11:46 AM CDT LABORATORY Calcium 9.4 8.8 - 10.2 mg/dL 02/17/2024 11:46 AM CDT LABORATORY Glucose 95 70 - 99 mg/dL 02/17/2024 11:46 AM CDT LABORATORY Blood BLOOD SPECIMEN / Unknown Venipuncture / Unknown 02/17/2024 11:05 AM CDT 02/17/2024 11:10 AM CDT Sandro Collado MD LAB - BLOOD ORD ERABLES LABORATORY [facility] [address], [address] [place] [address], [facility] [phone] * EKG 12-lead, tracing only (02/17/2024 10:49 AM CDT) Systolic Blood Pressure mmHg RADIOLOGY RESULTS Diastolic Blood Pressure mmHg RADIOLOGY RESULTS Ventricular Rate 60 BPM RAD IOLOGY RESULTS Atrial Rate 60 BPM RADIOLOG Y RESULTS UT Interval 158 ms RADIOLOG Y RESULTS QRS Duration 80 ms RADIOLO GY RESULTS QT 430 ms RADIOLOGY RESULTS QTc 430 ms RADIOLOGY RESULTS P [place] 15 degrees RADIOLOGY RESULTS R AXIS -35 degrees RADIOLOGY RESULTS T [place] 52 degrees RADIOLOGY RESULTS Interpretation ECG Sinus rhythm Left axis deviation Abnormal ECG No previous ECGs available RADIOLOGY RESULTS 02/17/2024 10:4 9 AM CDT Sandro Collado MD ECG ORDERABLES RADIOLOGY RESULTS documented in this encounter Visit Diagnoses Diagnosis Essential hypertension- Primary Unspecified essential hypertension Hypertensive urgency Unspecified essential hypertension Ureteral stent present Renal insufficiency Unspecified disorder of kidney and ureter Anemia, unspecified type Renal insufficiency Unspecified disorder of kidney and ureter Hypertensive urgency Unspecified essential hypertension Anemia, unspecified type Ureteral stent present documented in this encounter Administered Medications Inactive Administered Medications - up to 3 most recent administrations Medication Order MAR Action Action Date Dose Rate Site acetaminophen (TYLENOL) Suppository 650 mg 650 mg, Rectal, EVERY 4 HOURS PRN, mild pain, other, and adjunct with moderate or severe pain or per patient request, Starting on Juliet 02/17/24 at 1432, Alternate with ibuprofen if ordered. Maximum acetaminophen dose from all sources = 75 mg/kg/day not to exceed 4 grams/day. acetaminophen (TYLENOL) tablet 650 mg 650 mg, Oral, EVERY 4 HOURS PRN, mild pain, other, and adjunct with moderate or severe pain or per patient request, Starting on Juliet 02/17/24 at 1432, Alternate with ibuprofen if ordered. Maximum acetaminophen dose from all sources = 75 mg/kg/day not to exceed 4 grams/day. $Given 02/18/2024 8:15 AM CDT 650 mg $Given 02/18/2024 12:26 AM CDT 650 mg $Given 02/17/2024 2:35 PM CDT 650 mg hydrALAZINE (APRESOLINE) injection 10 mg 10 mg, Intravenous, ONCE, Administer over 1 Minutes, On [place] 02/17/24 at 1200, For 1 dose $Given 02/17/2024 12:07 PM CDT 10 mg hydroCHLOROthiazide tablet 12.5 mg 12.5 mg, Oral, DAILY, First dose on Wed02/18/24 at 1630 levothyroxine (SYNTHROID/LEVOTHROID) tablet 88 mcg 88 mcg, Oral, EVERY MORNING BEFORE BREAKFAST, First dose on Wed02/18/24 at 0730, Separate oral administration of iron- or calcium-containing products and levothyroxine by at least 4 hours. $Given 02/18/2024 6:45 AM CDT 88 mcg losartan (COZAAR) tablet 50 mg 50 mg, Oral, 2 TIMES DAILY, First dose on [place] 02/17/24 at 2000 $Given 02/18/2024 8:15 AM CDT 50 mg $Given 02/17/2024 7:46 PM CDT 50 mg naloxone (NARCAN) injection 0.2 mg 0.2 mg, Intravenous, EVERY 2 MIN PRN, opioid reversal, Starting on [place] 02/17/24 at 1555, Administer intravenous route when available and notify provider when administered. For unintended sedation or respiratory depression if all of the below criteria are met: ~ respiratory rate LESS than or EQUAL to 8. ~SaO2 less than 92% and or/end-tidal CO2 is greater than 50. ~ the patient is receiving an opioid, has unintended sedations assessed as RASS (-3), and is currently not on mechanical ventilation. RASS scale moderate (-3) is movement or eye opening to voice but no eye contact. Patient Monitoring Once the patient has demonstrated a response to the naloxone, continue to monitor respiratory rate, depth, oxygen saturation and end-tidal CO2 (if available) every 15 minutes x 2, then every 30 minutes x 2, then every 1 hour x 1 after each naloxone dose. Consider transfer to ICU if patient respiratory parameters have not improved after 4 naloxone doses. naloxone (NARCAN) injection 0.2 mg 0.2 mg, Intramuscular, EVERY 2 MIN PRN, opioid reversal, Starting on [place] 02/17/24 at 1555, Administer intramuscular if an intravenous route is not available and notify provider when administered. For unintended sedation or respiratory depression if all of the below criteria are met: ~ respiratory rate LESS than or EQUAL to 8. ~SaO2 less than 92% and or/end-tidal CO2 is greater than 50. ~ the patient is receiving an opioid, has unintended sedations assessed as RASS (-3), and is currently not on mechanical ventilation. RASS scale moderate (-3) is movement or eye opening to voice but no eye contact. Patient Monitoring Once the patient has demonstrated a response to the naloxone, continue to monitor respiratory rate, depth, oxygen saturation and end-tidal CO2 (if available) every 15 minutes x 2, then every 30 minutes x 2, then every 1 hour x 1 after each naloxone dose. Consider transfer to ICU if patient respiratory parameters have not improved after 4 naloxone doses. naloxone (NARCAN) injection 0.4 mg 0.4 mg, Intravenous, EVERY 2 MIN PRN, opioid reversal, Starting on [place] 02/17/24 at 1555, Administer intravenous route when available and notify provider when administered. For unintended sedation or respiratory depression if all of the below criteria are met: ~ respiratory rate LESS than or EQUAL to 8. ~ SaO2 less than 92% and or/end-tidal CO2 is greater than 50. ~ the patient is receiving an opioid, has unintended sedation assessed as RASS (-4) or (-5) and patient is currently not on mechanical ventilation. RASS scale (-4) is deep sedation with no response to voice but movement or eye opening to physical stimulation. RASS scale (-5) is unarousable. Patient Monitoring Once the patient has demonstrated a response to the naloxone, continue to monitor respiratory rate, depth, oxygen saturation and end-tidal CO2 (if available) every 15 minutes x 2, then every 30 minutes x 2, then every 1 hour x 1 after each naloxone dose. Consider transfer to ICU if patient respiratory parameters have not improved after 4 naloxone doses. naloxone (NARCAN) injection 0.4 mg 0.4 mg, Intramuscular, EVERY 2 MIN PRN, opioid reversal, Starting on Juliet 02/17/24 at 1555, Administer intramuscular if an intravenous route is not available and notify provider when administered. For unintended sedation or respiratory depression if all of the below criteria are met: ~ respiratory rate LESS than or EQUAL to 8. ~ SaO2 less than 92% and or/end-tidal CO2 is greater than 50. ~ the patient is receiving an opioid, has unintended sedation assessed as RASS (-4) or (-5) and patient is currently not on mechanical ventilation. RASS scale (-4) is deep sedation with no response to voice but movement or eye opening to physical stimulation. RASS scale (-5) is unarousable. Patient Monitoring Once the patient has demonstrated a response to the naloxone, continue to monitor respiratory rate, depth, oxygen saturation and end-tidal CO2 (if available) every 15 minutes x 2, then every 30 minutes x 2, then every 1 hour x 1 after each naloxone dose. Consider transfer to ICU if patient respiratory parameters have not improved after 4 naloxone doses. ondansetron (ZOFRAN ODT) ODT tab 4 mg 4 mg, Oral, EVERY 6 HOURS PRN, nausea, vomiting, Starting on Juliet 02/17/24 at 1543, This is Step 1 of nausea and vomiting management. If nausea not resolved in 15 minutes, go to Step 2 prochlorperazine (COMPAZINE). With dry hands, peel back foil backing and gently remove tablet. Do not push oral disintegrating tablet through foil backing. Administer immediately on tongue and oral disintegrating tablet dissolves in seconds, then swallow with saliva. Liquid not required. $Given 02/18/2024 12:34 AM CDT 4 mg ondansetron (ZOFRAN) injection 4 mg 4 mg, Intravenous, EVERY 6 HOURS PRN, nausea, vomiting, Administer over 2-5 Minutes, Starting on Juliet 02/17/24 at 1543, Give IF patient unable to tolerate oral medication. This is Step 1 of nausea and vomiting management. If nausea not resolved in 15 minutes, go to Step 2 prochlorperazine (COMPAZINE). Irritant. oxyCODONE (ROXICODONE) tablet 5 mg 5 mg, Oral, EVERY 4 HOURS PRN, moderate pain, Starting on Juliet 02/17/24 at 1554 $Given 02/17/2024 4:05 PM CDT 5 mg senna-docusate (SENOKOT-S/PERICOLACE) 8.6-50 MG per tablet 1 tablet 1 tablet, Oral, 2 TIMES DAILY PRN, constipation, Starting on Juliet 02/17/24 at 1557, If no bowel movement in 24 hours, increase to 2 tablets by mouth. IF more than 1 constipation PRN medication is ordered, administer step-alegria as indicated, moving to the next step ONLY if prior step ineffective. Step 1: senna-docusate (SENOKOT-S; PERICOLACE) OR bisacodyl (DULCOLAX) EC tablet Step 2: polyethylene glycol (MIRALAX/GLYCOLAX) Step 3: bisacodyl (DULCOLAX) suppository Step 4: enema Hold for loose stools. senna-docusate (SENOKOT-S/PERICOLACE) 8.6-50 MG per tablet 2 tablet 2 tablet, Oral, 2 TIMES DAILY PRN, constipation, Starting on [facility] 02/17/24 at 1557, IF more than 1 constipation PRN medication is ordered, administer step-alegria as indicated, moving to the next step ONLY if prior step ineffective. Step 1: senna-docusate (SENOKOT-S; PERICOLACE) OR bisacodyl (DULCOLAX) EC tablet Step 2: polyethylene glycol (MIRALAX/GLYCOLAX) Step 3: bisacodyl (DULCOLAX) suppository Step 4: enema Hold for loose stools. documented in this encounter Active and Recently Administered Medications Times are shown in CDT. Scheduled Medication Order 02/16/2024 02/17/2024 02/18/2024 hydrALAZINE (APRESOLINE) injection 10 mg (COMPLETED) 10 mg, Intravenous, ONCE, Administer over 1 Minutes, On Juliet 02/17/24 at 1200, For 1 dose 1207 ($Given - Provider: Suman Garza RN - Comment: Scanner broken) hydroCHLOROthiazide tablet 12.5 mg 12.5 mg, Oral, DAILY, First dose on Wed02/18/24 at 1630 1630 (Canceled Entry - Provider: Orders Generic Provider - Comment: Automatically canceled at discontinue of medication order) levothyroxine (SYNTHROID/LEVOTHROID) tablet 88 mcg 88 mcg, Oral, EVERY MORNING BEFORE BREAKFAST, First dose on Wed02/18/24 at 0730, Separate oral administration of iron- or calcium-containing products and levothyroxine by at least 4 hours. 0645 ($Given - Provi howard: Leesa Lorenzo RN) losartan (COZAAR) tablet 50 mg 50 mg, Oral, 2 TIMES DAILY, First dose on Juliet 02/17/24 at 2000 1946 ($Given - Provider: Leesa Lorenzo RN) 0815 ($Given - Provider: Sherrill Lake RN) PRN Medication Order 02/16/2024 02/17/2024 02/18/2024 acetaminophen (TYLENOL) Suppository 650 mg(Linked Group 1) 650 mg, Rectal, EVERY 4 HOURS PRN, mild pain, other, and adjunct with moderate or severe pain or per patient request, Starting on Juliet 02/17/24 at 1432, Alternate with ibuprofen if ordered. Maximum acetaminophen dose from all sources = 75 mg/kg/day not to exceed 4 grams/day. 1435 (See Alternative - Provider: Suman Garza RN) 0026 (See Alternative - Provider: Leesa Lorenzo RN)0815 (See Alternative - Provider: Sherrill Lake, RN) acetaminophen (TYLENOL) tablet 650 mg(Linked Group 1) 650 mg, Oral, EVERY 4 HOURS PRN, mild pain, other, and adjunct with moderate or severe pain or per patient request, Starting on [place] 02/17/24 at 1432, Alternate with ibuprofen if ordered. Maximum acetaminophen dose from all sources = 75 mg/kg/day not to exceed 4 grams/day. 1435 ($Given - Provider: Suman Garza RN - Comment: scanner broken) 0026 ($Given - Provider: Leesa Lorenzo RN)0815 ($Given - Provider: Sherrill Lake, SOHAM) carboxymethylcellulose PF (REFRESH PLUS) 0.5 % ophthalmic solution 1-2 drop 1-2 drop, Ophthalmic, EVERY 2 HOURS PRN, dry eyes, Starting on Juliet 02/17/24 at 1704, Formulary alternate for Blink Tears hydrALAZINE (APRESOLINE) injection 10 mg 10 mg, Intravenous, EVERY 4 HOURS PRN, high blood pressure, give for SBP > 200, Starting on Juliet 02/17/24 at 1543 naloxone (NARCAN) injection 0.2 mg(Linked Group 2) 0.2 mg, Intravenous, EVERY 2 MIN PRN, opioid reversal, Starting on [place] 02/17/24 at 1555, Administer intravenous route when available and notify provider when administered. For unintended sedation or respiratory depression if all of the below criteria are met: ~ respiratory rate LESS than or EQUAL to 8. ~SaO2 less than 92% and or/end-tidal CO2 is greater than 50. ~ the patient is receiving an opioid, has unintended sedations assessed as RASS (-3), and is currently not on mechanical ventilation. RASS scale moderate (-3) is movement or eye opening to voice but no eye contact. Patient Monitoring Once the patient has demonstrated a response to the naloxone, continue to monitor respiratory rate, depth, oxygen saturation and end-tidal CO2 (if available) every 15 minutes x 2, then every 30 minutes x 2, then every 1 hour x 1 after each naloxone dose. Consider transfer to ICU if patient respiratory parameters have not improved after 4 naloxone doses. naloxone (NARCAN) injection 0.2 mg(Linked Group 2) 0.2 mg, Intramuscular, EVERY 2 MIN PRN, opioid reversal, Starting on [place] 02/17/24 at 1555, Administer intramuscular if an intravenous route is not available and notify provider when administered. For unintended sedation or respiratory depression if all of the below criteria are met: ~ respiratory rate LESS than or EQUAL to 8. ~SaO2 less than 92% and or/end-tidal CO2 is greater than 50. ~ the patient is receiving an opioid, has unintended sedations assessed as RASS (-3), and is currently not on mechanical ventilation. RASS scale moderate (-3) is movement or eye opening to voice but no eye contact. Patient Monitoring Once the patient has demonstrated a response to the naloxone, continue to monitor respiratory rate, depth, oxygen saturation and end-tidal CO2 (if available) every 15 minutes x 2, then every 30 minutes x 2, then every 1 hour x 1 after each naloxone dose. Consider transfer to ICU if patient respiratory parameters have not improved after 4 naloxone doses. naloxone (NARCAN) injection 0.4 mg(Linked Group 2) 0.4 mg, Intravenous, EVERY 2 MIN PRN, opioid reversal, Starting on Juliet 02/17/24 at 1555, Administer intravenous route when available and notify provider when administered. For unintended sedation or respiratory depression if all of the below criteria are met: ~ respiratory rate LESS than or EQUAL to 8. ~ SaO2 less than 92% and or/end-tidal CO2 is greater than 50. ~ the patient is receiving an opioid, has unintended sedation assessed as RASS (-4) or (-5) and patient is currently not on mechanical ventilation. RASS scale (-4) is deep sedation with no response to voice but movement or eye opening to physical stimulation. RASS scale (-5) is unarousable. Patient Monitoring Once the patient has demonstrated a response to the naloxone, continue to monitor respiratory rate, depth, oxygen saturation and end-tidal CO2 (if available) every 15 minutes x 2, then every 30 minutes x 2, then every 1 hour x 1 after each naloxone dose. Consider transfer to ICU if patient respiratory parameters have not improved after 4 naloxone doses. naloxone (NARCAN) injection 0.4 mg(Linked Group 2) 0.4 mg, Intramuscular, EVERY 2 MIN PRN, opioid reversal, Starting on Juliet 02/17/24 at 1555, Administer intramuscular if an intravenous route is not available and notify provider when administered. For unintended sedation or respiratory depression if all of the below criteria are met: ~ respiratory rate LESS than or EQUAL to 8. ~ SaO2 less than 92% and or/end-tidal CO2 is greater than 50. ~ the patient is receiving an opioid, has unintended sedation assessed as RASS (-4) or (-5) and patient is currently not on mechanical ventilation. RASS scale (-4) is deep sedation with no response to voice but movement or eye opening to physical stimulation. RASS scale (-5) is unarousable. Patient Monitoring Once the patient has demonstrated a response to the naloxone, continue to monitor respiratory rate, depth, oxygen saturation and end-tidal CO2 (if available) every 15 minutes x 2, then every 30 minutes x 2, then every 1 hour x 1 after each naloxone dose. Consider transfer to ICU if patient respiratory parameters have not improved after 4 naloxone doses. ondansetron (ZOFRAN ODT) ODT tab 4 mg(Linked Group 3) 4 mg, Oral, EVERY 6 HOURS PRN, nausea, vomiting, Starting on Juliet 02/17/24 at 1543, This is Step 1 of nausea and vomiting management. If nausea not resolved in 15 minutes, go to Step 2 prochlorperazine (COMPAZINE). With dry hands, peel back foil backing and gently remove tablet. Do not push oral disintegrating tablet through foil backing. Administer immediately on tongue and oral disintegrating tablet dissolves in seconds, then swallow with saliva. Liquid not required. 0034 ($Given - Provider: Leesa Lorenzo RN) ondansetron (ZOFRAN) injection 4 mg(Linked Group 3) 4 mg, Intravenous, EVERY 6 HOURS PRN, nausea, vomiting, Administer over 2-5 Minutes, Starting on Juliet 02/17/24 at 1543, Give IF patient unable to tolerate oral medication. This is Step 1 of nausea and vomiting management. If nausea not resolved in 15 minutes, go to Step 2 prochlorperazine (COMPAZINE). Irritant. 0034 (See Alternativ e - Provider: Leesa Lorenzo RN) oxyCODONE (ROXICODONE) tablet 5 mg 5 mg, Oral, EVERY 4 HOURS PRN, moderate pain, Starting on Juliet 02/17/24 at 1554 1605 ($Given - Provider: Jenniffer Hood RN) senna-docusate (SENOKOT-S/PERICOLACE) 8.6-50 MG per tablet 1 tablet(Linked Group 4) 1 tablet, Oral, 2 TIMES DAILY PRN, constipation, Starting on Juliet 02/17/24 at 1557, If no bowel movement in 24 hours, increase to 2 tablets by mouth. IF more than 1 constipation PRN medication is ordered, administer step-alegria as indicated, moving to the next step ONLY if prior step ineffective. Step 1: senna-docusate (SENOKOT-S; PERICOLACE) OR bisacodyl (DULCOLAX) EC tablet Step 2: polyethylene glycol (MIRALAX/GLYCOLAX) Step 3: bisacodyl (DULCOLAX) suppository Step 4: enema Hold for loose stools. senna-docusate (SENOKOT-S/PERICOLACE) 8.6-50 MG per tablet 2 tablet(Linked Group 4) 2 tablet, Oral, 2 TIMES DAILY PRN, constipation, Starting on Juliet 02/17/24 at 1557, IF more than 1 constipation PRN medication is ordered, administer step-alegria as indicated, moving to the next step ONLY if prior step ineffective. Step 1: senna-docusate (SENOKOT-S; PERICOLACE) OR bisacodyl (DULCOLAX) EC tablet Step 2: polyethylene glycol (MIRALAX/GLYCOLAX) Step 3: bisacodyl (DULCOLAX) suppository Step 4: enema Hold for loose stools. Linked Groups Order Group 1: acetaminophen (TYLENOL) tablet 650 mgJump to med 650 mg, Oral, EVERY 4 HOURS PRN, mild pain, other, and adjunct with moderate or severe pain or per patient request, Starting on Juliet 02/17/24 at 1432, Alternate with ibuprofen if ordered. Maximum acetaminophen dose from all sources = 75 mg/kg/day not to exceed 4 grams/day. Or acetaminophen (TYLENOL) Suppository 650 mgJump to med 650 mg, Rectal, EVERY 4 HOURS PRN, mild pain, other, and adjunct with moderate or severe pain or per patient request, Starting on Juliet 02/17/24 at 1432, Alternate with ibuprofen if ordered. Maximum acetaminophen dose from all sources = 75 mg/kg/day not to exceed 4 grams/day. Group 2: naloxone (NARCAN) injection 0.2 mgJump to med 0.2 mg, Intravenous, EVERY 2 MIN PRN, opioid reversal, Starting on Juliet 02/17/24 at 1555, Administer intravenous route when available and notify provider when administered. For unintended sedation or respiratory depression if all of the below criteria are met: ~ respiratory rate LESS than or EQUAL to 8. ~SaO2 less than 92% and or/end-tidal CO2 is greater than 50. ~ the patient is receiving an opioid, has unintended sedations assessed as RASS (-3), and is currently not on mechanical ventilation. RASS scale moderate (-3) is movement or eye opening to voice but no eye contact. Patient Monitoring Once the patient has demonstrated a response to the naloxone, continue to monitor respiratory rate, depth, oxygen saturation and end-tidal CO2 (if available) every 15 minutes x 2, then every 30 minutes x 2, then every 1 hour x 1 after each naloxone dose. Consider transfer to ICU if patient respiratory parameters have not improved after 4 naloxone doses. Or naloxone (NARCAN) injection 0.4 mgJump to med 0.4 mg, Intravenous, EVERY 2 MIN PRN, opioid reversal, Starting on Juliet 02/17/24 at 1555, Administer intravenous route when available and notify provider when administered. For unintended sedation or respiratory depression if all of the below criteria are met: ~ respiratory rate LESS than or EQUAL to 8. ~ SaO2 less than 92% and or/end-tidal CO2 is greater than 50. ~ the patient is receiving an opioid, has unintended sedation assessed as RASS (-4) or (-5) and patient is currently not on mechanical ventilation. RASS scale (-4) is deep sedation with no response to voice but movement or eye opening to physical stimulation. RASS scale (-5) is unarousable. Patient Monitoring Once the patient has demonstrated a response to the naloxone, continue to monitor respiratory rate, depth, oxygen saturation and end-tidal CO2 (if available) every 15 minutes x 2, then every 30 minutes x 2, then every 1 hour x 1 after each naloxone dose. Consider transfer to ICU if patient respiratory parameters have not improved after 4 naloxone doses. Or naloxone (NARCAN) injection 0.2 mgJump to med 0.2 mg, Intramuscular, EVERY 2 MIN PRN, opioid reversal, Starting on Juliet 02/17/24 at 1555, Administer intramuscular if an intravenous route is not available and notify provider when administered. For unintended sedation or respiratory depression if all of the below criteria are met: ~ respiratory rate LESS than or EQUAL to 8. ~SaO2 less than 92% and or/end-tidal CO2 is greater than 50. ~ the patient is receiving an opioid, has unintended sedations assessed as RASS (-3), and is currently not on mechanical ventilation. RASS scale moderate (-3) is movement or eye opening to voice but no eye contact. Patient Monitoring Once the patient has demonstrated a response to the naloxone, continue to monitor respiratory rate, depth, oxygen saturation and end-tidal CO2 (if available) every 15 minutes x 2, then every 30 minutes x 2, then every 1 hour x 1 after each naloxone dose. Consider transfer to ICU if patient respiratory parameters have not improved after 4 naloxone doses. Or naloxone (NARCAN) injection 0.4 mgJump to med 0.4 mg, Intramuscular, EVERY 2 MIN PRN, opioid reversal, Starting on Juliet 02/17/24 at 1555, Administer intramuscular if an intravenous route is not available and notify provider when administered. For unintended sedation or respiratory depression if all of the below criteria are met: ~ respiratory rate LESS than or EQUAL to 8. ~ SaO2 less than 92% and or/end-tidal CO2 is greater than 50. ~ the patient is receiving an opioid, has unintended sedation assessed as RASS (-4) or (-5) and patient is currently not on mechanical ventilation. RASS scale (-4) is deep sedation with no response to voice but movement or eye opening to physical stimulation. RASS scale (-5) is unarousable. Patient Monitoring Once the patient has demonstrated a response to the naloxone, continue to monitor respiratory rate, depth, oxygen saturation and end-tidal CO2 (if available) every 15 minutes x 2, then every 30 minutes x 2, then every 1 hour x 1 after each naloxone dose. Consider transfer to ICU if patient respiratory parameters have not improved after 4 naloxone doses. Group 3: ondansetron (ZOFRAN ODT) ODT tab 4 mgJump to med 4 mg, Oral, EVERY 6 HOURS PRN, nausea, vomiting, Starting on Juliet 02/17/24 at 1543, This is Step 1 of nausea and vomiting management. If nausea not resolved in 15 minutes, go to Step 2 prochlorperazine (COMPAZINE). With dry hands, peel back foil backing and gently remove tablet. Do not push oral disintegrating tablet through foil backing. Administer immediately on tongue and oral disintegrating tablet dissolves in seconds, then swallow with saliva. Liquid not required. Or ondansetron (ZOFRAN) injection 4 mgJump to med 4 mg, Intravenous, EVERY 6 HOURS PRN, nausea, vomiting, Administer over 2-5 Minutes, Starting on Juliet 02/17/24 at 1543, Give IF patient unable to tolerate oral medication. This is Step 1 of nausea and vomiting management. If nausea not resolved in 15 minutes, go to Step 2 prochlorperazine (COMPAZINE). Irritant. Group 4: senna-docusate (SENOKOT-S/PERICOLACE) 8.6-50 MG per tablet 1 tabletJump to med 1 tablet, Oral, 2 TIMES DAILY PRN, constipation, Starting on Juliet 02/17/24 at 1557, If no bowel movement in 24 hours, increase to 2 tablets by mouth. IF more than 1 constipation PRN medication is ordered, administer step-alegria as indicated, moving to the next step ONLY if prior step ineffective. Step 1: senna-docusate (SENOKOT-S; PERICOLACE) OR bisacodyl (DULCOLAX) EC tablet Step 2: polyethylene glycol (MIRALAX/GLYCOLAX) Step 3: bisacodyl (DULCOLAX) suppository Step 4: enema Hold for loose stools. Or senna-docusate (SENOKOT-S/PERICOLACE) 8.6-50 MG per tablet 2 tabletJump to med 2 tablet, Oral, 2 TIMES DAILY PRN, constipation, Starting on Juliet 02/17/24 at 1557, IF more than 1 constipation PRN medication is ordered, administer step-alegria as indicated, moving to the next step ONLY if prior step ineffective. Step 1: senna-docusate (SENOKOT-S; PERICOLACE) OR bisacodyl (DULCOLAX) EC tablet Step 2: polyethylene glycol (MIRALAX/GLYCOLAX) Step 3: bisacodyl (DULCOLAX) suppository Step 4: enema Hold for loose stools. documented in this encounter Care Teams Ecommerce Merchandising Manager Relationship Specialty Start Date End Date Rachael Boss PCP - General 08/23/12 02/22/24 documented as of this encounter
--- OUTSIDE RECORDS SUMMARY | 2024-03-08 02:00 | XMS_ITS | Encounter Summary ---
Author Organization [facility] Address [address] [place], [place] [address]. 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 Preop [address] [id number] Stone Sage MD [facility] [address] [id number] Discharge Disposition: Home with Planned Hospital IP Readmission Social History Tobacco Use Types Packs/Day Years Used Date Smoking Tobacco: Never Smokeless Tobacco: Never Tobacco Cessation:Counseling Given: Not Answered Alcohol Use Standard Drinks/Week Comments No 0 [...] Sign Reading Time Taken Comments Blood Pressure 201/72 02/17/2024 10:07 AM CDT Pulse 68 02/17/2024 10:07 AM CDT Temperature 36.7 ??C (98 ??F) 02/17/2024 8:54 AM CDT Respiratory Rate 16 02/17/2024 8:54 AM CDT Oxygen Saturation 99% 02/17/2024 8:54 AM CDT Inhaled Oxygen Concentration - - Weight 75.2 kg (165 lb 11.2 oz) 02/17/2024 8:54 AM CDT Height 160 cm (5' 3) 02/17/2024 8:54 AM CDT Body Mass Index 29.35 02/17/2024 8:54 AM CDT documented in this encounter Discharge Instructions * Discharge Instructions* Maegan Shell RN - 02/17/2024 9:41 AM CDT Today you were given 975 mg of Tylenol at 9:09 AM. The recommended daily maximum dose is 4000 mg. documented in this encounter Medications at Time of Discharge Medication Sig Dispensed Refills Start Date End Date hydroCHLOROthiazide 12.5 MG tabletIndications:[facility] hypertension Take 1 tablet (12.5 mg) by mouth daily 30 tablet 02/18/2024 documented as of this encounter Nursing Notes * Ava Rollins RN - 02/17/2024 10:28 AM CDT Case cancelled after patient spoke to Dr. Sage and anesthesia. Labetolol 5 mg not effective. Pt transferred to ER triage. Daughter accompanying. documented in this encounter Plan of Treatment Not on file documented as of this encounter Visit Diagnoses Not on filedocumented in this encounter Administered Medications Inactive Administered Medications - up to 3 most recent administrations Medication Order MAR Action Action Date Dose Rate Site acetaminophen (TYLENOL) tablet 975 mg 975 mg, Oral, ONCE, On Juliet 02/17/24 at 0900, For 1 dose, Maximum acetaminophen dose from all sources = 75 mg/kg/day not to exceed 4 grams/day., Pre-procedure $Given 02/17/2024 9:09 AM CDT 975 mg ceFAZolin Sodium (ANCEF) injection 2 g Routine, 2 g, Intravenous, PRE-OP/PRE-PROCEDURE, Starting on Juliet 02/17/24 at 0842, For 1 dose, Give first dose within 1 hour PRIOR to incision. If patient weight is greater than or equal to 120 kg increase dose to 3 g., Indications: Perioperative Pharmacoprophylaxis, Pre-procedure ceFAZolin Sodium (ANCEF) injection 2 g Routine, 2 g, Intravenous, SEE ADMIN INSTRUCTIONS, Starting on Juliet 02/17/24 at 0842, Intra-Op Dose.?Give every 4 hours while patient in surgery, starting 4 hours after pre-op dose.??DO NOT GIVE intra-op dose if CrCl less than 10 mL/min (on dialysis).??If CrCl less than 50 mL/min, double the time interval between doses., Indications: Perioperative Pharmacoprophylaxis, Pre-procedure labetalol (NORMODYNE/TRANDATE) injection 5 mg 5 mg, Intravenous, ONCE, On Juliet 02/17/24 at 1000, For 1 dose, Pre-procedure $Given 02/17/2024 9:46 AM CDT 5 mg documented in this encounter Active and Recently Administered Medications Times are shown in CDT. Scheduled Medication Order 02/15/2024 02/16/2024 02/17/2024 acetaminophen (TYLENOL) tablet 975 mg (COMPLETED) 975 mg, Oral, ONCE, On Juliet 02/17/24 at 0900, For 1 dose, Maximum acetaminophen dose from all sources = 75 mg/kg/day not to exceed 4 grams/day., Pre-procedure 908 ($Given - Provi howard: Maegan Shell RN) ceFAZolin Sodium (ANCEF) injection 2 g Routine, 2 g, Intravenous, PRE-OP/PRE-PROCEDURE, Starting on Juliet 02/17/24 at 0842, For 1 dose, Give first dose within 1 hour PRIOR to incision. If patient weight is greater than or equal to 120 kg increase dose to 3 g., Indications: Perioperative Pharmacoprophylaxis, Pre-procedure ceFAZolin Sodium (ANCEF) injection 2 g Routine, 2 g, Intravenous, SEE ADMIN INSTRUCTIONS, Starting on Juliet 02/17/24 at 0842, Intra-Op Dose.?Give every 4 hours while patient in surgery, starting 4 hours after pre-op dose.??DO NOT GIVE intra-op dose if CrCl less than 10 mL/min (on dialysis).??If CrCl less than 50 mL/min, double the time interval between doses., Indications: Perioperative Pharmacoprophylaxis, Pre-procedure labetalol (NORMODYNE/TRANDATE) injection 5 mg (COMPLETED) 5 mg, Intravenous, ONCE, On Juliet 02/17/24 at 1000, For 1 dose, Pre-procedure 0946 ($Given - Provi howard: Maegan Shell RN) documented in this encounter Care Teams Mechanical Drawing Teacher Relationship Specialty Start Date End Date Alli Boss PCP - General 08/23/12 02/22/24 documented as of this encounter
--- OUTSIDE RECORDS SUMMARY | 2024-03-08 02:00 | XMS_ITS | Encounter Summary ---
Author Organization [facility] Address [address] [place] [id number] Care Team Providers Care Silica Mixer Operator Name Role Phone Alli Boss Primary Care Provider [phone] Encounter Details Date Type Department Care Team (Latest Contact Info) Description 02/17/2024 Travel Social History Tobacco Use Types Packs/Day Years [...] on file documented as of this encounter Plan of Treatment Not on file documented as of this encounter Visit Diagnoses Not on filedocumented in this encounter Care Teams Silica Mixer Operator Relationship Specialty Start Date End Date Alli Boss PCP - General 08/23/12 02/22/24 documented as of this encounter
--- OUTSIDE RECORDS SUMMARY | 2024-03-08 02:00 | XMS_ITS | Clinical Summary ---
Author Organization [facility] Address [address] [place] [address] Care Team Providers Care Bending Machine Operator Name Role Phone Irma Mandujano MD Primary Care Provider [phone] Allergies Active Allergy Reactions Criticality Noted Date Comments Abdon Inhibitors 09/07/2012 Levsin 09/07/2012 Metoprolol Succinate 09/07/2012 Medications Medication Sig Dispensed Refills Start Date End Date Status vitamin D3 (CHOLECALCIFEROL) 50 mcg (2000 units) tablet Take 1 tablet by mouth daily Active levothyroxine (SYNTHROID/LEVOTH ROID) 88 MCG tablet Take 88 mcg by mouth daily Active losartan (COZAAR) 50 MG tablet Take 50 mg by mouth daily Active Magnesium Oxide 250 MG TABS Take 500 mg by mouth at bedtime Active Polyethylene Glycol 400 0.25 % GEL Apply 1-2 drops to eye every 2 hours as needed (dry eyes) Uses Blink brand Active hydroCHLOROthiazi de 12.5 MG tabletIndications :Essential hypertension Take 1 tablet (12.5 mg) by mouth daily 30 tablet 02/18/2024 Active Losartan Potassium (COZAAR PO) Take 50 mg by mouth daily. 4 Discontinue d(Med Rec(No AVS / No eCancel)) Levothyroxine Sodium (SYNTHROID PO) Take 88 mcg by mouth daily. 4 Discontinue d(Med Rec(No AVS / No eCancel)) HYDROcodone-aceta minophen 5-325 MG per tabletIndications :Post-op pain Take 1 tablet by mouth every 6 hours as needed for pain. Maximum of 4000 mg of acetaminophen in 24 hours. 10 tablet 0 09/07/2012 4 Discontinue d(Med Rec(No AVS / No eCancel)) albuterol (PROVENTIL) (2.5 MG/3ML) 0.083% neb solution Take 2.5 mg by nebulization every 4 hours as needed for cough 01/11/2023 4 Discontinue d(Med Rec(No AVS / No eCancel)) ascorbic acid 1000 MG TABS tablet Take 1,000 mg by mouth 2 times daily 4 Discontinue d(Med Rec(No AVS / No eCancel)) magnesium glycinate 100 MG CAPS capsule Take 100 mg by mouth daily 04/19/2023 4 Discontinue d(Med Rec(No AVS / No eCancel)) omeprazole (PRILOSEC) [address] capsule Take 20 mg by mouth daily 04/19/2023 4 Discontinue d(Med Rec(No AVS / No eCancel)) cholecalciferol (VITAMIN D3) 10 mcg (400 units) TABS tablet Take 10 mcg by mouth daily 4 Discontinue d(Med Rec(No AVS / No eCancel)) diphenhydrAMINE-a cetaminophen (TYLENOL PM) 25-500 MG tablet Take 1 tablet by mouth nightly as needed for sleep 4 Discontinue d(Med Rec(No AVS / No eCancel)) Active Problems Problem Noted Date Diagnosed Date Diaphragmatic hernia 02/17/2024 Edema 02/17/2024 Overview: echo w/ EF 60% 01/31 Vitamin D deficiency 02/17/2024 Renal insufficiency 02/17/2024 Hypertensive urgency 02/17/2024 Anemia, unspecified type 02/17/2024 Ureteral stent present 02/17/2024 Asthma 02/16/2024 CHI (closed head injury) 02/16/2024 Mass of right lung 02/16/2024 TIA (transient ischemic attack) 02/16/2024 Anemia 12/24/2023 Hydronephrosis with ureteral stricture, not elsewhere classified 12/24/2023 joint terminal attack controller current use of anticoagulant Atrial fibrillation, unspecified type 12/18/2022 Hypertensive kidney disease, stage V 01/05/2022 Aortic valve regurgitation 12/08/2021 Mitral valve regurgitation 12/08/2021 Gastroesophageal reflux disease without esophagi tis 10/24/2021 Chronic fibrosis of lung 10/23/2021 Essential hypertension 07/31/2021 joint terminal attack controller (current) use of aspirin 07/31/2021 History of falling 06/17/2020 Hyperlipidemia 11/30/2019 Hypothyroidism 11/23/2019 Lung granuloma 03/01/2019 Overview: CT stable [address] [place] continues to confirm no change 2019 Arthritis of left foot 05/24/2018 Adjustment disorder with mixed anxiety and depre ssed mood 06/30/2015 Insomnia, unspecified 01/26/2008 Encounters Date Type Department Care Team Description 02/17/2024 10:42 AM CDT Anesthesia Event [facility] Emergency Dept [address] [place] [phone] Gaudencio Reynolds MD Verdon, Amanda M, TRUST OFFICER AUDIT SENIOR ASSOCIATE 02/17/2024 10:32 AM CDT - 02/18/2024 5:22 PM CDT Emergency [facility] Extended Recovery and Short Stay [address] [place] [phone] Sandro Collado MD Steinbrueck, Eric Edward, Essential hypertension (Primary Dx); Hypertensive urgency; Ureteral stent present; Renal insufficiency; Anemia, unspecified type Discharge Disposition: Home or Self Care 02/17/2024 8:33 AM CDT - 02/17/2024 10:30 AM CDT Hospital Encounter [facility] SD Preop [address] [phone] Stone Sage MD Discharge Disposition: [facility] with [facility] IP Readmission 02/17/2024 Travel from Last 3 Months Social History Tobacco Use Types Packs/Day Years [...] on file Sexual Orientation Not on file Last Filed Vital Signs Vital Sign Reading [...] Mass Index 29.23 02/17/2024 10:23 AM CDT Plan of Treatment Health Maintenance Due Date Last Done Comments ADVANCE CARE PLANNING 1940 ANNUAL REVIEW OF HM ORDERS 1940 ASTHMA ACTION PLAN 1940 ASTHMA CONTROL TEST 1940 DEXA 1940 LIPID 1940 MICROALBUMIN 1940 PARATHYROID 1940 PHOSPHORUS 1940 ALK PHOS 1941 RSV VACCINE ( & 60+) (1 - 1-dose 60+ series) 2000 FALL RISK ASSESSMENT 2005 DTAP/TDAP/TD IMMUNIZATION (1 - Tdap) 01/27/2008 01/26/2008, 02/26/1988 ZOSTER IMMUNIZATION (2 of 3) 03/22/2008 01/26/2008 MEDICARE ANNUAL WELLNESS VISIT 01/05/2023 01/05/2022 COVID-19 Vaccine (1 - season) 2023 PHQ-2 (once per calendar year) 2023 BMP 05/20/2024 02/18/2024, 02/17/2024 INFLUENZA VACCINE (Season Ended) 2024 09/15/2016, 06/24/2015, 07/17/2014, Additional history exists HEMOGLOBIN 08/19/2024 02/17/2024 TSH W/FREE T4 REFLEX 02/16/2025 02/17/2024 Pneumococcal Vaccine: 65+ Years Completed 04/20/2017, 09/15/2005 URINALYSIS Completed 02/18/2024 HPV IMMUNIZATION Aged Out No longer e ligible based on patient's age to complete this topic IPV IMMUNIZATION Aged Out No longer e ligible based on patient's age to complete this topic MENINGITIS IMMUNIZATION Aged Out No l onger eligible based on patient's age to complete this topic RSV MONOCLONAL ANTIBODY Aged Out No l onger eligible based on patient's age to complete this topic Procedures Procedure Name Priority Date/Time Associated Diagnosis Comments URINE CULTURE STAT 02/18/2024 11:04 AM CDT UA MACROSCOPIC WITH REFLEX TO MICRO AND CULTURE STAT 02/18/2024 11:04 AM CDT ECHO COMPLETE Routine 02/18/2024 10:54 AM CDT BASIC METABOLIC PANEL Routine 02/18/2024 7:06 AM CDT TROPONIN T, HIGH SENSITIVITY Timed 02/18/2024 12:12 AM CDT TROPONIN T, HIGH SENSITIVITY Timed 02/17/2024 7:[address] HEAD W/O CONTRAST STAT 02/17/2024 4:29 PM CDT CBC WITH PLATELETS & DIFFERENTIAL STAT 02/17/2024 11:05 AM CDT TSH WITH FREE T4 REFLEX Add-On 02/17/2024 11:05 AM CDT TROPONIN T, HIGH SENSITIVITY STAT 02/17/2024 11:05 AM CDT EXTRA RED TOP TUBE STAT 02/17/2024 11 :05 AM CDT EXTRA BLUE TOP TUBE STAT 02/17/2024 1 1:05 AM CDT CBC WITH PLATELETS AND DIFFERENTIAL STAT 02/17/2024 11:05 AM CDT EXTRA TUBE STAT 02/17/2024 11:05 AM CDT BASIC METABOLIC PANEL STAT 02/17/2024 11:05 AM CDT EKG 12-LEAD, TRACING ONLY STAT 02/17/2024 10:49 AM CDT from Last 3 Months Results * (ABNORMAL) UA Macroscopic with reflex to [...] mg/dL 02/18/2024 11:33 AM CDT LABORATORY Specific Rule Urine 1.011 1.003 - 1.035 02/18/2024 11:33 [...] ordered based on laboratory criteria Moy Stewart DAYCARE PROVIDER LAB - URIN E ORDERABLES LABORATORY [facility] Acute Care Lab [address], [address] [place] [address] [phone] * Urine Culture (02/18/2024 11:04 AM CDT) Culture <10,000 CFU/mL Urogenital callie 02/19/2024 9:57 AM CDT [facility] LABORATORY Urine MID-STREAM URINE SPECIMEN / Unknown Non-blood Collection / Unknown 02/18/2024 11:04 AM CDT 02/18/2024 11:33 AM CDT Moy Stewart DAYCARE PROVIDER LAB - MICR O GENERAL ORDERABLES [facility] LABORATORY [facility] Inf. Diseases Diag. Lab [address] [facility] [place] [address] * ECHO COMPLETE (02/18/2024 10:54 AM CDT) LVEF 60-65% CARDIOLOGY RESULTS Anatomical Region Laterality Modality Echocardiography 02/18/2024 10:0 7 AM CDT Narrative 02/18/2024 3:16 PM CDT [id number]^PAT^MOY^TC [facility] Echocardiography Laboratory [address] [place] [address] Name: SUN ALEMAN : 1940 Study Date: 02/18/2024 10:07 AM Age: 83 yrs Gender: Female Patient Location: [facility] Reason For Study: Hypertension (HTN) Ordering Physician: MOY STEWART Referring Physician: Alli Boss Performed By: Howard Ruiz BSA: 1.8 [...] Procedure Note Yajaira Vences MD - 02/18/2024 [id number]^PAT^MOY^TC [facility] Echocardiography Laboratory [address] [place] [address] Name: SUN ALEMAN : 1940 Study Date: 02/18/2024 10:07 AM Age: 83 yrs Gender: Female Patient Location: [facility] Reason For Study: Hypertension (HTN) Ordering Physician: MOY STEWART Referring Physician: Alli Boss Performed By: Howard Ruiz BSA: 1.8 [...] Basic metabolic panel (02/18/2024 7:06 AM CDT) Only the most recent of2 resultswithin the time period is included. [facility] Sodium 139 135 - 145 mmol/L 02/18/2024 7:41 AM [facility] LABORATORY Comment:Reference intervals for this test were updated on 06/22/2023 to more accurately reflect our healthy population. There may be differences in the flagging of prior results with similar values performed with this method. Interpretation of those prior results can be made in the context of the updated reference intervals. Potassium 4.2 3.4 - 5.3 mmol/L 02/18/2024 7:41 AM [facility] LABORATORY Chloride 107 98 - 107 mmol/L 02/18/2024 7:41 AM [facility] LABORATORY Carbon Dioxide (CO2) 22 22 - 29 mmol/L 02/18/2024 7:41 AM CDT LABORATORY Anion Gap 10 7 - 15 mmol/L 02/18/2024 7:41 AM CDT LABORATORY Urea Nitrogen 18.2 8.0 - 23.0 mg/dL 02/18/2024 7:41 AM CDT LABORATORY Creatinine 1.23(H) 0.51 - 0.95 mg/dL 02/18/2024 7:41 AM CDT LABORATORY GFR Estimate 43(L) >60 mL/min/1. 73m2 02/18/2024 7:41 AM CDT LABORATORY Calcium 9.1 8.8 - 10.2 mg/dL 02/18/2024 7:41 AM CDT LABORATORY Glucose 87 70 - 99 mg/dL 02/18/2024 7:41 AM CDT LABORATORY Blood STRUCTURE OF RIGHT HAND / Unknown Venipuncture / Unknown 02/18/2024 7:06 AM CDT 02/18/2024 7:11 AM CDT Benjamin Moss DO LAB - BLOOD O RDERABLES LABORATORY [facility] Acute Care Lab [address], [address] [place] [address], [facility] [phone] * (ABNORMAL) Troponin T, High Sensitivity (02/18/2024 12:12 AM CDT) Only the most recent of3 resultswithin the time period is included. Pathologist [facility] [place] Troponin T, [...] LAB - BLOOD O RDERABLES LABORATORY [facility] Acute Care Lab [address] floor, [address] [place] [address], [facility] [phone] * CT Head w/o Contrast (02/17/2024 4:29 [...] CDT EXAM: CT HEAD W/O CONTRAST LOCATION: [facility] DATE: 02/17/2024 INDICATION: severe headache, hypertension COMPARISON: [...] 02/17/2024 EXAM: CT HEAD W/O CONTRAST LOCATION: [facility] DATE: 02/17/2024 INDICATION: severe headache, hypertension COMPARISON: [...] Moss DO IMG CT ORDERA BLES * Extra Red Top Tube (02/17/2024 11:05 AM CDT) Hold Specimen [facility] 02/17/2024 12:16 PM CDT LABORATORY Blood BLOOD SPECIMEN / Unknown Venipuncture / Unknown 02/17/2024 11:05 AM CDT 02/17/2024 11:10 AM CDT Sandro Collado MD LAB - BLOOD ORD ERABLES [facility] Lab [address], [address] [place] [address], [facility] [phone] * Extra Blue Top Tube (02/17/2024 11:05 AM CDT) Hold Specimen [facility] 02/17/2024 12:16 PM CDT LABORATORY Blood BLOOD SPECIMEN / Unknown Venipuncture / Unknown 02/17/2024 11:05 AM CDT 02/17/2024 11:10 AM CDT Sandro Clolado MD LAB - BLOOD ORD ERABLES LABORATORY [facility] Acute Care Lab [address], [address] [place] [address], [facility] [phone] * (ABNORMAL) CBC with platelets and differential (02/17/2024 11:05 AM CDT) [facility] WBC Count 8.4 4.0 - 11.0 10e3/uL [...] Collado MD LAB - BLOOD ORD ERABLES [facility] Lab [address], [address] [place] [address], [place] [phone] * TSH with free T4 reflex (02/17/2024 11:05 AM CDT) TSH 1.38 0.30 - 4.20 uIU/mL 02/17/2024 2:02 PM CDT LABORATORY Blood BLOOD SPECIMEN / Unknown Venipuncture / Unknown 02/17/2024 11:05 AM CDT 02/17/2024 11:10 AM CDT Benjamin Moss DO LAB - BLOOD O RDERABLES [facility] Lab [address], [address] [place] [address], [place] [phone] * EKG 12-lead, tracing only (02/17/2024 10:49 AM CDT) Systolic Blood Pressure mmHg RADIOLOGY RESULTS Diastolic Blood Pressure mmHg RADIOLOGY RESULTS Ventricular Rate 60 BPM RAD IOLOGY RESULTS Atrial Rate 60 BPM RADIOLOG Y RESULTS CA Interval 158 ms RADIOLOG Y RESULTS QRS Duration 80 ms RADIOLO GY RESULTS QT 430 ms RADIOLOGY RESULTS QTc 430 ms RADIOLOGY RESULTS P [place] 15 degrees RADIOLOGY RESULTS R AXIS -35 degrees RADIOLOGY RESULTS T [place] 52 degrees RADIOLOGY RESULTS Interpretation ECG Sinus rhythm Left axis deviation Abnormal ECG No previous ECGs available RADIOLOGY RESULTS 02/17/2024 10:4 9 AM CDT Sandro Collado MD ECG ORDERABLES RADIOLOGY RESULTS from Last 3 Months Advance Directives For more information, please contact: [phone] * Full Code (Latest Code Status on File) Date Activated Date Inactivated Comments 02/17/2024 3:57 PM 02/18/2024 7:29 PM All basic an d advanced life-sustaining interventions are performed as appropriate Question Answer Comments Code status determined by: Discussion with shilpa nt/ legal decision maker Care Teams Bending Machine Operator Relationship Specialty Start Date End Date Irma Mandujano MD [address] [place] [address] PCP - General Family Medicine 02/23/24
--- OUTSIDE RECORDS SUMMARY | 2024-03-08 02:00 | XMS_ITS | Referral Summary ---
Author Organization [facility] Address [address] [place], [place] [address]. [place] [address] Care Team Providers Care Bridge Leverman Name Role Phone Irma Mandujano MD Primary Care Provider [phone] Encounters Date Type Department Care Team Description 02/17/2024 10:32 AM CDT - 02/18/2024 5:22 PM CDT Emergency [facility] Extended Recovery and Short Stay [address] [place] [phone] Sandro Collado MD Steinbrueck, Eric Edward, Essential hypertension (Primary Dx); Hypertensive urgency; Ureteral stent present; Renal insufficiency; Anemia, unspecified type Discharge Disposition: Home or Self Care 02/17/2024 Travel 02/17/2024 10:42 AM CDT Anesthesia Event [facility] Emergency Dept [address] [place] [phone] Gaudencio Reynolds MD Verdon, Amanda M, APRN CRNA 02/17/2024 8:33 AM CDT - 02/17/2024 10:30 AM CDT Hospital Encounter [facility] SD Preop [address] [place] [phone] Stone Sage MD Discharge Disposition: [facility] with [facility] IP Readmission from Last 3 Months Allergies Active Allergy Reactions Criticality Noted Date [...] with ureteral stricture, not elsewhere classified 12/24/2023 skilled nursing current use of anticoagulant Atrial fibrillation, unspecified type 12/18/2022 Hypertensive kidney disease, stage V 01/05/2022 Aortic valve regurgitation 12/08/2021 Mitral valve regurgitation 12/08/2021 Gastroesophageal reflux disease without esophagi tis 10/24/2021 Chronic fibrosis of lung 10/23/2021 Essential hypertension 07/31/2021 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 [place] continues to confirm no change 2019 Arthritis of left foot 05/24/2018 Adjustment disorder with mixed anxiety and depre ssed mood 06/30/2015 Insomnia, unspecified 01/26/2008 Social History Tobacco Use Types Packs/Day Years [...] 02/17/2024 10:23 AM CDT Plan of Treatment Not on file Procedures Procedure Name Priority Date/Time Associated Diagnosis [...] mg/dL 02/18/2024 11:33 AM CDT LABORATORY Specific [place] Urine 1.011 1.003 - 1.035 02/18/2024 11:33 [...] ordered based on laboratory criteria Moy Stewart NP LAB - URIN E ORDERABLES SH LABORATORY [facility] Acute Care Lab [address], [address] [place] [address], [facility] [phone] * Urine Culture (02/18/2024 11:04 AM CDT) Culture <10,000 CFU/mL Urogenital callie 02/19/2024 9:57 AM CDT [facility] LABORATORY Urine MID-STREAM URINE SPECIMEN / Unknown Non-blood Collection / Unknown 02/18/2024 11:04 AM CDT 02/18/2024 11:33 AM CDT Moy Stewart NP LAB - MICR O GENERAL ORDERABLES [facility] LABORATORY [facility] Inf. Diseases Diag. Lab [address] [facility], [address] [place] [address], [facility] * ECHO COMPLETE (02/18/2024 10:54 AM CDT) LVEF 60-65% CARDIOLOGY RESULTS Anatomical Region Laterality Modality Echocardiography 02/18/2024 10:0 7 AM CDT Narrative 02/18/2024 3:16 PM CDT [id number]^PAT^MOY^TC [facility] Echocardiography Laboratory [address] [place] [address] Name: SUN ALEMAN : 1940 Study Date: 02/18/2024 10:07 AM Age: 83 yrs Gender: Female Patient Location: [facility] Reason For Study: Hypertension (HTN) Ordering [...] Procedure Note Yajaira Vences MD - 02/18/2024 [id number]^PAT^MOY^TC [facility] Echocardiography Laboratory [address] [place] [address] Name: SUN ALEMAN : 1940 Study Date: 02/18/2024 10:07 AM Age: 83 yrs Gender: Female Patient Location: [facility] Reason For Study: Hypertension (HTN) Ordering [...] of2 resultswithin the time period is included. [facility] Sodium 139 135 - 145 mmol/L 02/18/2024 7:41 AM CDT LABORATORY Comment:Reference intervals for this test were updated on 06/22/2023 to more accurately reflect our healthy population. There may be differences in the flagging of prior results with similar values performed with this method. Interpretation of those prior results can be made in the context of the updated reference intervals. Potassium 4.2 3.4 - 5.3 mmol/L 02/18/2024 7:41 AM CDT LABORATORY Chloride 107 98 - 107 mmol/L 02/18/2024 7:41 AM CDT LABORATORY Carbon Dioxide (CO2) 22 22 - 29 mmol/L 02/18/2024 7:41 AM T LABORATORY Anion Gap 10 7 - 15 mmol/L 02/18/2024 7:41 AM CDT LABORATORY Urea Nitrogen 18.2 8.0 - 23.0 mg/dL 02/18/2024 7:41 AM T LABORATORY Creatinine 1.23(H) 0.51 - 0.95 mg/dL 02/18/2024 7:41 AM T LABORATORY GFR Estimate 43(L) >60 mL/min/1. 73m2 02/18/2024 7:41 AM T LABORATORY Calcium 9.1 8.8 - 10.2 mg/dL 02/18/2024 7:41 AM T LABORATORY Glucose 87 70 - 99 mg/dL 02/18/2024 7:41 AM [facility] LABORATORY Blood STRUCTURE OF RIGHT HAND / Unknown Venipuncture / Unknown 02/18/2024 7:06 AM CDT 02/18/2024 7:11 AM CDT Benjamin Moss DO LAB - BLOOD O RDERABLES LABORATORY [facility] Acute Care Lab [address], [address] [place] [address], [facility] [phone] * (ABNORMAL) Troponin T, High Sensitivity (02/18/2024 12:12 AM CDT) Only the most recent of3 resultswithin the time period is included. [facility] Troponin T, High Sensitivity 15(H) <=14 ng/L [...] DO LAB - BLOOD O RDERABLES LABORATORY [facility] Acute Care Lab [address], [address] [place] [address], [facility] [phone] * CT Head w/o Contrast (02/17/2024 4:29 [...] CDT EXAM: CT HEAD W/O CONTRAST LOCATION: [facility] DATE: 02/17/2024 INDICATION: severe headache, hypertension [...] 02/17/2024 EXAM: CT HEAD W/O CONTRAST LOCATION: [facility] DATE: 02/17/2024 INDICATION: severe headache, hypertension [...] Tube (02/17/2024 11:05 AM CDT) Hold Specimen [facility] 02/17/2024 12:16 PM CDT LABORATORY Blood BLOOD SPECIMEN / Unknown Venipuncture / Unknown 02/17/2024 11:05 AM CDT 02/17/2024 11:10 AM CDT Sandro Collado MD LAB - BLOOD ORD ERABLES LABORATORY [facility] Acute Care Lab [address], [address] [place] [address], [facility] [phone] * Extra Blue Top Tube (02/17/2024 11:05 AM CDT) Hold Specimen [facility] 02/17/2024 12:16 PM CDT LABORATORY Blood BLOOD SPECIMEN / Unknown Venipuncture / Unknown 02/17/2024 11:05 AM CDT 02/17/2024 11:10 AM CDT Sandro Collado MD LAB - BLOOD ORD ERABLES LABORATORY [facility] Acute Care Lab [address], [address] [place] [address], [facility] [phone] * (ABNORMAL) CBC with platelets and differential (02/17/2024 11:05 AM CDT) WBC Count 8.4 4.0 - 11.0 10e3/uL [...] MD LAB - BLOOD ORD ERABLES LABORATORY [facility] Acute Care Lab [address], [address] [place] [address], [facility] [phone] * TSH with free T4 reflex (02/17/2024 11:05 AM CDT) TSH 1.38 0.30 - 4.20 uIU/mL 02/17/2024 2:02 PM CDT LABORATORY Blood BLOOD SPECIMEN / Unknown Venipuncture / Unknown 02/17/2024 11:05 AM CDT 02/17/2024 11:10 AM CDT Benjamin Moss DO LAB - BLOOD O RDERABLES LABORATORY [facility] Acute Care Lab [address], [address] [place] [address], [facility] [phone] * EKG 12-lead, tracing only (02/17/2024 10:49 AM CDT) Systolic Blood Pressure mmHg RADIOLOGY RESULTS Diastolic Blood Pressure mmHg RADIOLOGY RESULTS Ventricular Rate 60 BPM RAD IOLOGY RESULTS Atrial Rate 60 BPM RADIOLOG Y RESULTS AR Interval 158 ms RADIOLOG Y RESULTS QRS Duration 80 ms RADIOLO GY RESULTS QT 430 ms RADIOLOGY RESULTS QTc 430 ms RADIOLOGY RESULTS P [place] 15 degrees RADIOLOGY RESULTS R AXIS -35 degrees RADIOLOGY RESULTS T [place] 52 degrees RADIOLOGY RESULTS Interpretation ECG Sinus rhythm Left axis deviation Abnormal ECG No previous ECGs available RADIOLOGY RESULTS 02/17/2024 10:4 9 AM CDT Sandro Collado MD ECG ORDERABLES RADIOLOGY RESULTS from Last 3 Months Advance Directives For more information, please contact: [phone] * Full Code (Latest Code Status on File) Date Activated Date Inactivated Comments 02/17/2024 3:57 PM 02/18/2024 7:29 PM All basic an d advanced life-sustaining interventions are performed as appropriate Question Answer Comments Code status determined by: Discussion with shilpa nt/ legal decision maker Care Teams Bridge Leverman Relationship Specialty Start Date End Date Irma Mandujano MD [address] [place] [address] PCP - General Family Medicine 02/23/24
--- OUTSIDE RECORDS SUMMARY | 2024-03-08 02:00 | XMS_ITS | Data Portability ---
Author Organization [facility], [facility] Address [address] [place] [address] Care Team Providers Care Grizzly Worker Name Role Phone DAFNEAndrewDIMASBRIAN Referring Provider Assessment Encounter Date Assessment Date Assessment LastModified by Organization Details LastModified Time 01/18/2024 01/18/2024 83 Y/O FEMALE, HX OF RT HYDRONEPHROSI S, UTI, EARLY SEPSIS AND PLACEMENT OF A RT URETERAL STENT IN [place]. U/C POS WITH HORTON SENSITIVE [place]OL[place] . NOW BACK TO BASELINE. C.T. 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 REVIEWED EXTENSIVE RECORDS, LABS FROM [place]. PLAN WILL SCHEDULE CYSTO, RT RETROGRADE AND REEVALUATE UPJ AND POSSIBLE STENT EXCHANGE.PROC EDURE EXPLAINED IN DETAIL. ALL QUESTIONS ANSWERED. Not available 01/18/2024 22:00:32 Plan of Treatment Reminders Order Date Submit Date Provider Last Modified By Organization Details Last Modified Time Details Appointments None record ed. Lab None record ed. Referral None record ed. Procedures None record ed. Surgeries None record ed. Imaging None record ed. Medication Orders None record ed. Patient TargetsNo targets recorded. Patient InstructionsNo instructions recorded. Reason for Referral None Reported. Problems Name Status Onset Date Resolution Date Notes Provider Name and Address Organization Details Recorded Time Obstruction of pelviureteric junction Active 01/18/20 24 Stone Sage MD [address] [facility] [address], [place], [address], [facility] 01/18/2024 22:00:44 Problem Notes None recorded. Medical Equipment None Reported. Allergies No known drug allergies Medications Name Sig Start Date Stop Date Status Note LastModified by Organization Details LastModified Time compair xlt compre cmpressr USE DIRECTED 01/17 completed Not Available Not Available Not Available nebulizer tubing [id number] DIRECTED. REPLACE MASK AND TUBING EVERY 6 [...] Updated DateTime 01/18/2024 160.02 cm 29.1 kg/m2 01115.15 g Stone Sage MD [address] [place] [address] 01/18/2024 16:03:19 Social History Question Answer Notes LastModified by Organizat ion Details LastModified Time Tobacco Smoking Status Never Smoker Stone Sage MD [address] [place] [address], [phone], [facility] 01/18/2024 16:04:53 What Is Your Level [...] polysaccharide PPV23 09/15/2005 completed Stone Sage MD [address] [place] [address],[address], [address], [facility] 01/18/2024 16:03:41 Pneumococcal conjugate PCV 13 04/20/2017 completed Stone Sage MD [address] [place] [address],[address] [place] [address], [phone], [facility] 01/18/2024 16:03:41 zoster live 01/26/2008 completed Stone Sage MD [address] [place] [address],[address], [address], [facility] 01/18/2024 16:03:41 Influenza, high-dose, trivalent, PF 06/24/2015 completed Stone Sage MD [address] [place] [address],[address] [place] [address], [phone], [facility] 01/18/2024 16:03:41 Influenza, high-dose, trivalent, PF 07/17/2014 completed Stone Sage MD [address] [place] [address],[address], [address], [facility] 01/18/2024 16:03:41 Influenza, split virus, trivalent, preservative 07/25/2013 completed Stone Sage MD [address] [place] [address],[address], [phone], [facility] 01/18/2024 16:03:41 Td (adult), 5 Lf tetanus toxoid, preservative free, adsorbed 01/26/2008 completed Stone Sage MD [address] [place] [address],[address], [address], [facility] 01/18/2024 16:03:41 Past Encounters Encounter ID Performer Location Encounter Start Date Encounter Closed Date Diagnosis/Indication Diagnosis SNOMED-CT Code [id number] Stone Sage MD [facility] [address] [id number] 01/18/2024 15:50:30 01/19/2024 11:20:30 Obstruction of pelviureteric junction [id number] Health Concerns Section Related Observation LastModified by Organization Detai ls LastModified Time None Recorded Concern Status LastModified by Organization Details LastModified Time None Recorded Advance Directives Directive None Recorded Payers Encounter Date Sequence Insurance Name Policy Number Policy Schaffer Covered Member ID Schaffer Member ID Guarantor Name 01/18/2024 1 [place]IC[place] COST [id number] Sun Medrano [id number] Sun Medrano Notes Date Note Type Note Provider Name and Address Organization Details Recorded Time 01/18/2024 text/html HPI Notes: 83 YO F HERE FOR HYDRONEPHROSIS FOLLOWUP. WENT INTO ER, FOUND TO HAVE INFECTION AND SEVERE RIGHT HYDRONEPHROSIS. SUSPECTED RT UPJ OBSTRUCTION .STENT PLACED ABOUT 3 WEEKS AGO IN [place]. ECOLI UTI. SPENT 4 DAYS IN THE HOSPITAL..NOW BACK TO BASELINE. NO STENT DISCOMFORT. Stone Sage MD [address] [facility], [place], [address], [facility] 01/18/2024 22:01:23 OBGyn Episode No OBEpisode recorded.
--- OUTSIDE RECORDS SUMMARY | 2024-03-08 02:00 | XMS_ITS | Continuity of Care Document ---
Author Organization [facility], [facility] Address [address] [place] [address] Care Team Providers Care Deburrer Name Role Phone BRIAN HURD Referring Provider Assessment Encounter Date Assessment Date Assessment LastModified by Organization Details LastModified Time 01/18/2024 01/18/2024 83 Y/O FEMALE, HX OF RT HYDRONEPHROSI S, UTI, EARLY SEPSIS AND PLACEMENT OF A RT URETERAL STENT IN [place]. U/C POS WITH HORTON SENSITIVE ECOLI . NOW BACK TO BASELINE. C.T. 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 REVIEWED EXTENSIVE RECORDS, LABS FROM [place]. PLAN WILL SCHEDULE CYSTO, RT RETROGRADE AND [...] Active 01/18/20 24 Stone Sage MD [address] [facility], [place], [address], [facility] 01/18/2024 22:00:44 Problem Notes None recorded. Medical Equipment None Reported. Allergies No known drug allergies Medications Name Sig Start Date Stop Date Status Note LastModified by Organization Details LastModified Time compair xlt compre cmpressr USE DIRECTED 01/17 completed Not Available Not Available Not Available nebulizer tubing [id number] DIRECTED. REPLACE MASK AND TUBING EVERY 6 [...] Updated DateTime 01/18/2024 160.02 cm 29.1 kg/m2 71314.15 g Stone Sage MD [address] [place] [address],[address], [phone] 01/18/2024 16:03:19 Social History Question Answer Notes LastModified by Organizat ion Details LastModified Time Tobacco Smoking Status Never Smoker Stone Sage MD [address] [place] [address],[address], [address], [facility] 01/18/2024 16:04:53 What Is Your Level Of Alcohol Consumption? None Information not available 01/18/2024 What Was The Date Of Your Most Recent Tobacco Screening? 01/18/2024 Information not available 01/18/2024 Sex: Female Functional Status None recorded. Mental Status None recorded. Family History Nothing Reported. Medical History Condition Response Other N High Blood Pressure N Kidney Stones N Lung Disease N Depression N GERD/Acid Reflux N Sexually Transmitted Infection N Diabetes N Bleeding Disorder N Cancer N High Cholesterol N Heart Disease N Gynecological HistoryNo gynecological history recorded. Obstetrics History GPAL:G 0 P 0 0 0 0 Immunizations Vaccine Type Date Status Provider Name and Address Organization Details Recorded Time pneumococcal polysaccharide PPV23 09/15/2005 completed Stone Sage MD [address] [place] [address],[address], [address], [facility] 01/18/2024 16:03:41 Pneumococcal conjugate PCV 13 04/20/2017 completed Stone Sage MD [address] [place] [address],[address] [place] [address], [phone], [facility] 01/18/2024 16:03:41 zoster live 01/26/2008 completed Stone Sage MD [address] [place] [address],[address], [place], [address], [facility] 01/18/2024 16:03:41 Influenza, high-dose, trivalent, PF 06/24/2015 completed Stone Sage MD [address] [place] [address],[address] [place] [address], [phone], [facility] 01/18/2024 16:03:41 Influenza, high-dose, trivalent, PF 07/17/2014 completed Stone Sage MD [address] [place] [address],[address] [place] [address], [phone], [facility] 01/18/2024 16:03:41 Influenza, split virus, trivalent, preservative 07/25/2013 completed Stone Sage MD [address] [place] [address],[address] [place] [address], [phone], [facility] 01/18/2024 16:03:41 Td (adult), 5 Lf tetanus toxoid, preservative free, adsorbed 01/26/2008 completed Stone Sage MD [address] [place] [address],[address], [address], [facility] 01/18/2024 16:03:41 Past Encounters Encounter ID Performer Location Encounter Start Date Encounter Closed Date Diagnosis/Indication Diagnosis SNOMED-CT Code [id number] Stone Sage MD [facility] [address] [id number] 01/18/2024 15:50:30 01/19/2024 11:20:30 Obstruction of pelviureteric junction [id number] Health Concerns Section Related Observation LastModified by Organization Carmelina ls LastModified Time None Recorded Concern Status LastModified by Organization Details LastModified Time None Recorded Payers Encounter Date Sequence Insurance Name Policy Number Policy Schaffer Covered Member ID Schaffer Member ID Guarantor Name 01/18/2024 1 [place]IC[place] COST [id number] Sun Medrano [id number] [id number] Medrano Notes Date Note Type Note Provider Name and Address Organization Details Recorded Time 01/18/2024 text/html HPI Notes: 83 YO F HERE FOR HYDRONEPHROSIS FOLLOWUP. WENT INTO ER, FOUND TO HAVE INFECTION AND SEVERE RIGHT HYDRONEPHROSIS. SUSPECTED RT UPJ OBSTRUCTION .STENT PLACED ABOUT 3 WEEKS AGO IN [place]. ECOLI UTI. SPENT 4 DAYS IN THE HOSPITAL..NOW BACK TO BASELINE. NO STENT DISCOMFORT. Stone Sage MD [address] [place] [address],[address], [place], [address], [facility] 01/18/2024 22:01:23 OBGyn Episode No OBEpisode recorded.
--- OUTSIDE RECORDS SUMMARY | 2024-03-08 02:00 | XMS_ITS | Encounter Summary ---
Author Organization [place] Address [address] [place] 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] Procedures TN CYSTOSCOPY,INSERT URETERAL STENT TN UROGRAPHY, RETROGRADE W/WO KUB CYSTOSCOPY , RIGHT RETROGRADE PYELOGRAM , POSSIBLE RIGHT STENT EXCHANGE Periop Services [address] [place] [address] Referral ID Status Reason Start Date Expiration Date Visits Re quested Visits Authorized [id number] 1 1 Encounter Details Date Type Department Care Team (Late st Contact Info) Description 02/17/2024 10:42 AM CDT Anesthesia Event M [facility] Emergency Dept [address] [facility] [place] [address] Gaudencio Reynolds MD [facility] [address] [place] [address] Neetu [place], JEWELRY BEARING MAKER CERTIFIED LACTATION EDUCATOR [address] [id number] Anesthesia Record Procedure Summary Procedure Name Responsible Anesthesiologist Anesthesia Start Time Anesthesia Stop Time CYSTOSCOPY , RIGHT RETROGRADE PYELOGRAM , POSSIBLE RIGHT STENT EXCHANGE (canceled) Events Date Time Event Comment 02/17/2024 0919 Meds * Agents No agents on file. * Blood No blood administrations on file. Lines, Drains, and Airways Type Details Placement Removal Incision/Surgical Site 09/07/12; 926; Right; Ey e 09/07/12926 by Nany Izaguirre RN documented in this encounter Social History Tobacco Use Types Packs/Day Years [...] on file documented as of this encounter OR Notes * Anesthesia Preprocedure Evaluation - Gaudencio Reynolds MD - 02/17/2024 9:16 AM CDT Anesthesia Pre-Procedure Evaluation Patient: Sun Singh : 1940 Procedure : Procedure(s): CYSTOSCOPY , RIGHT RETROGRADE PYELOGRAM , POSSIBLE RIGHT STENT EXCHANGE Past Medical History: Diagnosis Date Gastro-oesophageal reflux disease H/O Guerra's palsy Hyperlipidemia Hypertension Hypothyroidism Osteopenia PONV (postoperative nausea and vomiting) Sleep apnea Past Surgical History: Procedure Laterality Date APPENDECTOMY CHOLECYSTECTOMY COLONOSCOPY DISKECTOMY, LUMBAR, ADDTNL SP HC ENLARGE BREAST WITH IMPLANT LEG SURGERY REPAIR ENTROPION 09/07/2012 Procedure: REPAIR ENTROPION; RIGHT LOWER LID ENTROPION REPAIR; Surgeon: Benjamin Mckeon MD; Location: [facility] Allergies Allergen Reactions Abdon Inhibitors Levsin Metoprolol Succinate Social History Tobacco Use Smoking status: Never Smokeless tobacco: Never Substance Use Topics Alcohol use: No Wt Readings from Last 1 Encounters: 02/17/24 75.2 kg (165 lb 11.2 oz) Anesthesia Evaluation Pt has had prior anesthetic. History of anesthetic complications - PONV. ROS/MED HX ENT/Pulmonary: Comment: Chronic fibrosis of the lung, lung granuloma (+) sleep apnea, asthma Neurologic: Comment: Hx of bells palsy (+) TIA, Cardiovascular: (+) Dyslipidemia hypertension- - - - - dysrhythmias, a-fib, Previous cardiac testing Echo: Date: 05/2022 Results: 1. Normal left ventricular chamber size. Calculated left ventricular ejection fraction (modified Adorno technique) is 56 %. No regional wall motion abnormalities. Mild concentrically increased left ventricular wall thickness. Calculated left ventricular ejection fraction (3D) is 60 %. 2. Normal right ventricular chamber size. Normal right ventricular systolic function. Right ventricular systolic pressure cannot be estimated due to inability to detect peak tricuspid regurgitation Doppler velocity. 3. No significant valvular heart disease. 4. No pericardial effusion. 5. Normal inferior vena cava with normal inspiratory collapse. 6. Aortic sinus of Valsalva is normal in size (3.3 cm, ZScore = -0.67). Normal indexed ascending aorta dimension (3.9 cm, 2.1 cm/m??). Stress Test: Date: Results: ECG Reviewed: Date: Results: Cath: Date: Results: METS/Exercise Tolerance: 3 - Able to walk 1-2 blocks without stopping Hematologic: (+) anemia, Musculoskeletal: GI/Hepatic: (+) GERD, Renal/Genitourinary: (+) renal disease, type: CRI, Endo: (+) thyroid problem, hypothyroidism, Psychiatric/Substance Use: Infectious Disease: Malignancy: Other: Physical Exam Airway Mallampati: II TM distance: > 3 FB Neck ROM: full Mouth opening: > 3 cm Respiratory Devices and Support Dental (+) Modest Abnormalities - crowns, retainers, 1 or 2 missing teeth Cardiovascular cardiovascular exam normal Pulmonary pulmonary exam normal OUTSIDE LABS: CBC: No results found for: WBC, HGB, HCT, PLT BMP: No results found for: NA, POTASSIUM, CHLORIDE, CO2, BUN, CR, GLC COAGS: No results found for: PTT, INR, FIBR POC: No results found for: BGM, HCG, HCGS HEPATIC: No results found for: ALBUMIN, PROTTOTAL, ALT, AST, GGT, ALKPHOS, BILITOTAL,BILIDIRECT, ANTHONY OTHER: No results found for: PH, LACT, A1C, JAIMIE, PHOS, MAG, LIPASE, AMYLASE, TSH,T4, T3, CRP, SED Anesthesia Plan ASA Status: 3 NPO Status: NPO Appropriate Anesthesia Type: General. - Airway: LMA Induction: Propofol. Maintenance: TIVA. Consents Anesthesia Plan(s) and associated risks, benefits, and realistic alternatives discussed. Questions answered and patient/physician representative(s) expressed understanding. - Discussed: - Discussed with: Patient Postoperative Care Pain management: IV analgesics. PONV prophylaxis: Ondansetron (or other 5HT-3), Dexamethasone or Solumedrol, Background Propofol Infusion Comments: Other Comments: Case cancelled due to hypertensive urgency. Patient notes that she has been seen inthe last week for systolic BP in the 200's with severe headache. MRI and CT have been completed in the past which were negative according to the patient. Today the patient arrived with systolic BP's in the 220's. Again today, she is complaining of headache. Labetalol 5mg IV given with BP's improving to 201/68. Discussion with the patient that with her BP's, she is at severe risk of CVA and other risks undergoing anesthesia. At this time we made the decision to cancel the case, and send the patient to the ED for further evaluation. Gaudencio Reynolds MD I have reviewed the pertinent notes and labs in the chart from the past 30 days and (re)examined the patient. Any updates or changes from those notes are reflected in this note. # Overweight: Estimated body mass index is 29.35 kg/m?? as calculated from the following: Height as of this encounter: 1.6 m (5' 3). Weight as of this encounter: 75.2 kg (165 lb 11.2 oz). documented in this encounter Plan of Treatment Not on file documented as of this encounter Visit Diagnoses Not on filedocumented in this encounter Care Teams Mannequin Mounter Relationship Specialty Start Date End Date Alli Boss PCP - General 08/23/12 02/22/24 documented as of this encounter
--- NOTE | 2024-03-08 02:01 | ED.GENADULT ---
HPI - General Adult General Chief complaint: Abdominal Pain Stated complaint: right side pain Time Seen by Provider: 03/08/24 01:37 Source: patient Mode of arrival: ambulatory Limitations: no limitations History of Present Illness HPI narrative: The 83-year-old female presents to the emergency department for evaluation of right lower quadrant pain and nausea that started about 90 minutes ago. Says that she felt a little chilled when she went to bed 2-1/2 hours ago but no other major symptoms. Pain sudden onset. She did get out of bed and tried to urinate hoping that that would help. She was able to void a small amount but it did not improve her pain. Tried taking 1 tramadol tablet which also did not improve her symptoms. She has a complicated renal history over the last few months. At the end of November, she was in [place] and had an episode of illness which ultimately sounds like it was a kidney infection. She reports that they had to place a ureteral stent. She did not have a stone or a tumor. It sounds as though the ureter was kinked and the kidney was not draining properly. She was to have the stent removed after a few weeks but had difficulty securing an appointment once she got back to [place] which is not surprising. Urology services are pretty scarce right now. Nonetheless she ultimately had the stent removed 36 hours ago and reports that she was told that the stent removal was completely uncomplicated. It sounds as though they did a contrast dye study by the description she gives. She was voiding normally following the procedure and for the past 30+ hours up until tonight. She has not had any fever, blood in her urine, gynecological changes or diarrhea. Pain is crampy in nature and does come in waves, but is starting to become more steady. It is also occasionally radiating into the right flank, right CVA area. Denies prior history of renal, ureteral or bladder issues. Denies pelvic for surgeries. Past medical history is notable for what sounds like AFib. She is prescribed Xarelto but by her description she is no longer taking it. She does take losartan twice daily and hydrochlorothiazide though she denies that she has hypertension. She also takes levothyroxine for hypothyroidism following what sounds like a radioactive ablation in her teens. She tells me that she went on a natural plant based diet to eliminate her medications I think she may have been self to using to discontinue these rather than under exact physician guidance. Nonetheless, she is a nonsmoker, lives independently, good historian. ROS is notable for the urinary changes as above only, otherwise denies times 12 systems. She also tells me that her blood pressure was quite high when she was at the urology office, consistent with the values described here today. They actually declined to do her procedure the 1st time because of her elevated blood pressure, she had to come back a few weeks later and blood pressure remained elevated yet they did proceed as described above. Related Data Home Medications ?Medication ?Instructions ?Recorded ?Confirmed levothyroxine 88 mcg tablet 88 mcg PO DAILY 01/07/23 02/14/24 (Synthroid) losartan 25 mg tablet 50 mg PO DAILY 01/07/23 06/02/23 rivaroxaban 20 mg tablet (Xarelto) 20 mg PO QPM 01/07/23 06/02/23 albuterol sulfate 2.5 mg/3 mL 2.5 mg continuous nebulization Q4H 01/14/23 06/02/23 (0.083 %) solution for nebulization PRN cough hydrochlorothiazide 12.5 mg capsule 12.5 mg PO DAILY 04/05/23 06/02/23 aspirin 81 mg tablet,delayed 81 mg PO DAILY 02/14/24 02/14/24 release (Adult Aspirin Regimen) Allergies Allergy/AdvReac Type Severity Reaction Status Date / Time WILLIAM Inhibitors Allergy Mild Hives Verified 03/08/24 02:40 hyoscyamine [From Levsin] Allergy Mild Hives Verified 03/08/24 02:40 apixaban [From Eliquis] AdvReac Intermediate Diarrhea Verified 03/08/24 02:40 lisinopril AdvReac Mild Cough Verified 03/08/24 02:40 metoprolol AdvReac Mild Cough Verified 03/08/24 02:40 PFSH PFSH Medical History Vitamin D deficiency ?E55.9 - Vitamin D deficiency, unspecified (ICD-10) Osteopenia ?M85.80 - Other specified disorders of bone density and structure, unspecified site (ICD-10) 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 - Migraine with aura, not intractable, without status migrainosus (ICD-10) Intestinal infection due to campylobacter ?A04.5 - Campylobacter enteritis (ICD-10) Hypothyroidism ?E03.9 - Hypothyroidism, unspecified (ICD-10) Hypertension ?I10 - Essential (primary) hypertension (ICD-10) Hyperlipidemia ?E78.5 - Hyperlipidemia, unspecified (ICD-10) Hiatal hernia ?K44.9 - Diaphragmatic hernia without obstruction or gangrene (ICD-10) Esophageal reflux ?K21.9 - Gastro-esophageal reflux disease without esophagitis (ICD-10) Edema ?R60.9 - Edema, unspecified (ICD-10) Duodenal ulcer, unspecified as acute or chronic, without hemorrhage or perforation ?K26.9 - Duodenal ulcer, unspecified as acute or chronic, without hemorrhage or perforation (ICD-10) Chest pain ?R07.9 - Chest pain, unspecified (ICD-10) Anticoagulation monitoring, INR range 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) Surgical History History of eye surgery ?Z98.890 - Other specified postprocedural states (ICD-10) History of lumbar discectomy ?Z98.890 - Other specified postprocedural states (ICD-10) History of cholecystectomy ?Z90.49 - Acquired absence of other specified parts of digestive tract (ICD-10) History of knee replacement ?Z96.659 - Presence of unspecified artificial knee joint (ICD-10) History of surgery on lower extremity ?Z98.890 - Other specified postprocedural states (ICD-10) History of surgery on lower extremity ?Z98.890 - Other specified postprocedural states (ICD-10) History of esophagogastroduodenoscopy (EGD) ?Z98.890 - Other specified postprocedural states (ICD-10) S/P epidural steroid injection ?Z92.241 - Personal history of systemic steroid therapy (ICD-10) History of colonoscopy ?Z98.890 - Other specified postprocedural states (ICD-10) History of cataract removal with insertion of prosthetic lens ?Z98.49 - Cataract extraction status, unspecified eye (ICD-10) ?Z96.1 - Presence of intraocular lens (ICD-10) History of breast augmentation ?Z98.82 - Breast implant status (ICD-10) History of appendectomy ?Z90.49 - Acquired absence of other specified parts of digestive tract (ICD-10) Social History Smoking Status: Never smoker Do you use any of these nicotine containing products: None Second hand tobacco smoke exposure: No How often do you have a drink containing alcohol: never How often do you have six or more drinks on one occasion: Never AUDIT-C Alcohol total score: 0 Non-prescribed substance use: denies use service: No Exam Const: Vital Signs, click to edit/add: Vital Signs - 24 hr 03/08/24 01:34 03/08/24 02:46 Temperature 97.4 F L Pulse Rate [Pulse Oximeter] 84 60 Respiratory Rate 16 16 Blood Pressure [Ri ght Upper Arm] 228/90 H 192/70 H Pulse Oximetry 98 100 Oxygen Delivery Me thod Room Air Room Air Documenting provider has reviewed patient's vital signs: yes Common normals: no apparent distress and alert General appearance: cooperative and well kempt Other: Good historian. HENMT: Common normals: normocephalic, moist oral mucous membranes and oropharynx normal Head and scalp: normocephalic Face and sinus: normal facial exam Mouth: oral and palatal mucosa normal Throat: posterior oropharynx normal Eye: Common normals: conjunctivae normal General eye: normal appearance of both eyes Conjunctiva: conjunctiva(e) normal Neck & C-Spine: Common normals: full ROM and no lymphadenopathy Resp: Common normals: normal respiratory effort, no use of accessory muscles and clear to auscultation bilaterally Effort & inspection: able to speak in complete sentences Auscultation: clear to auscultation bilaterally Cardio: Common normals: regular rate, regular rhythm, S1 normal heart sound, S2 normal heart sound and no murmurs Rate: regular rate Rhythm: regular rhythm Heart sounds: S1 normal and S2 normal GI: Common normals: Normal to inspection, nondistended, normoactive bowel sounds present, soft to palpation, no hepatosplenomegaly and no masses Palpation: soft and no hepatosplenomegaly Other: Mildly tender to palpation of right lower quadrant but no rebound tenderness or guarding. : Common normals: no CVA tenderness Bladder/kidney exam: no CVA tenderness Back & Pelvis: Common normals: no CVA tenderness Extremity: Common normals: normal to inspection and normal capillary refill General: normal exam except as noted Neuro: Sensorium/orientation: alert Speech: speech normal Psych: Appearance: well kempt Attitude: engaged Activity/motor behavior: appropriate eye contact Mood and affect: euthymic mood Attention/concentration: attention grossly intact Memory/cognition: memory grossly intact Insight: insight good Judgement: judgment good Skin: Common normals: no rashes or lesions noted General skin exam: no rashes or lesions noted Course Course ED Course: 83-year-old female with right lower quadrant pain and recent instrumentation of ureter. Concern for ureteral obstruction, infection, stone or other potential intra-abdominal pathology like GI obstruction, appendicitis, gynecological issue, among others. We do not have ultrasound available overnight but I think we actually would be best served with CT. Discussed CT urogram versus standard contrast CT, will proceed with CT scan. Will give Zofran and oxycodone as well as a little Flomax for pain. I am hoping the Flomax may help with the spasm. Typical labs and of course a urinalysis. Await findings and consider Urology consult. Reevaluation(s) Time of Reevaluation #1: 04:00 Reevaluation #1: I spoke with the urologist on-call, Dr. Amado. He shares my concern that there is signs of AA ureteral obstruction near the UVJ. CT images were pushed to Jeron[facility]. I do not think that he reviewed these yet. He would like for her to call the office in the daylight hours to be seen urgently. Pain control in the interim. There are no signs of infection, therefore I do not need to start antibiotics. Plan of care is discussed with patient. Pain is doing a little better on the oxycodone. She agrees that going into the hospital is not likely necessary. Unfortunately we both know that this will not likely speed up getting a new stent. She is instructed on the alarm symptoms as expected and would need to come back to the emergency department if there is any high fever, severe weakness or if her pain is unbearable. She has the number to call Urology. She is provided with 10 oxycodone tablets in the interim. She will call her daughter for a ride home. Postvoid residual 84 mL, no signs of bladder outlet obstruction. Blood pressure did improve to 192/70 Vital Signs Vital signs: Initial Vital Signs Temperature 97.4 F L 03/08/24 01:34 Temperature Source Temporal Artery Scan 03/08/24 01:34 Pulse Rate 84 03/08/24 01:34 Respiratory Rate 16 03/08/24 01:34 Blood Pressure 228/90 H 03/08/24 01:34 Blood Pressure Mean 136 H 03/08/24 01:34 Blood Pressure Position Supine 03/08/24 01:34 Pulse Oximetry 98 03/08/24 01:34 Oxygen Delivery Method Room Air 03/08/24 01:34 Vital Signs Temperature 97.4 F L 03/08/24 01:34 Pulse Rate 84 03/08/24 01:34 Respiratory Rate 16 03/08/24 01:34 Blood Pressure 228/90 H 03/08/24 01:34 Pulse Oximetry 98 03/08/24 01:34 Oxygen Delivery Method Room Air 03/08/24 01:34 Temperature 97.4 F L 03/08/24 01:34 Pulse Rate 60 03/08/24 02:46 Respiratory Rate 16 03/08/24 02:46 Blood Pressure 192/70 H 03/08/24 02:46 Pulse Oximetry 100 03/08/24 02:46 Oxygen Delivery Method Room Air 03/08/24 02:46 Medications Administered Medications: Generic Name Dose Route Start Last Admin Trade Name Freq PRN Reason Stop Dose Admin Calcium Carbonate 500 mg 03/08/24 02:45 03/08/24 02:57 Calcium Carbonate 500 Mg Chew PO 03/08/24 02:46 500 mg ONCE ONE Administration Oxycodone HCl 5 mg 03/08/24 03:06 03/08/24 03:12 Oxycodone 5 Mg Tablet PO 03/08/24 03:07 5 mg ONCE ONE Administration Discontinued Medications Generic Name Dose Route Start Last Admin Trade Name Freq PRN Reason Stop Dose Admin Sodium Chloride 1,000 mls @ 500 mls/hr 03/08/24 01:51 03/08/24 02:04 0.9 % Sodium Chloride 1000 Ml IV 03/08/24 03:50 500 mls/hr .Q2H DEREK Administration Ondansetron HCl 4 mg 03/08/24 01:51 03/08/24 02:05 Ondansetron 2 Mg/Ml Inj IVP 03/08/24 01:52 4 mg ONCE ONE Administration Oxycodone HCl 5 mg 03/08/24 01:51 03/08/24 02:05 Oxycodone 5 Mg Tablet PO 03/08/24 01:52 5 mg ONCE ONE Administration Tamsulosin HCl 0.4 mg 03/08/24 01:54 03/08/24 02:05 Tamsulosin Hcl 0.4 Mg Capsule PO 03/08/24 01:55 0.4 mg ONCE ONE Administration Medical Decision Making Lab Data Lab results reviewed: Yes I reviewed the patient's lab results Lab results narrative: No signs of UTI. Creatinine essentially stable, baseline looks to be 1.1-1.2 outpatient. Normal electrolytes. Labs: Lab Results 03/08/24 03/08/24 Range/Units 02:00 02:35 WBC 9.86 (4.50-11.00) K/uL RBC 3.45 L (4.00-5.20) m/uL Hgb 10.2 L (12.0-16.0) gm/dL Hct 31.2 L (33.0-51.0) % MCV 90 (80-100) fL MCH 30 (26-34) pg MCHC 33 (32-36) gm/dL RDW Coeff of Albert 14.8 (11.5-15.5) % Plt Count 341 (140-440) K/uL Neut % (Auto) 42.1 (42.0-72.0) % Lymph % (Auto) 48.0 H (20-44) % Knott % (Auto) 8.6 (0.0-11.0) % Eos % (Auto) 0.8 (0.0-7.0) % Baso % (Auto) 0.4 (0.0-3.0) % Neut # (Auto) 4.15 (1.7-7.0) K/uL Lymph # (Auto) 4.70 H (0.90-2.90) K/uL Knott # (Auto) 0.80 (0.00-0.90) K/UL Eos # (Auto) 0.08 (0.00-0.50) K/uL Baso # (Auto) 0.04 (0.00-0.30) K/uL Abs Immat Gran (auto) 0.01 (0.00-0.30) K/uL Imm/Tot Granulo (auto) 0.1 % Sodium 137 (135-149) mmol/L Potassium 4.3 (3.6-5.1) mmol/L Chloride 105 (96-114) mmol/L Carbon Dioxide 23 (20-32) mmol/L Anion Gap 9 (7-15) mEq/L BUN 28 (7-30) mg/dL Creatinine 1.4 (0.5-1.5) mg/dL Estimated Creat Clear 25.19 Estimated GFR 37 ml/min Glucose 98 (60-115) mg/dL Calcium 9.4 (8.4-10.6) mg/dL C-Reactive Protein < 0.5 L (0.5-1.0) mg/dL Urine Color Yellow (Yellow) Urine Appearance Clear (Clear) Urine pH 7.5 (5.0-8.5) Ur Specific [place] 1.015 (1.000-1.030) Urine Protein Negative (Negative) Urine Glucose (UA) Negative (Negative) Urine Ketones Negative (Negative) Urine Blood Trace-intact A (Negative) Urine Nitrite Negative (Negative) Urine Bilirubin Negative (Negative) Urine Urobilinogen 0.2 (0.2-1.0) Ur Leukocyte Esterase Negative (Negative) Urine RBC 0-2 (0-2) Urine WBC 0-2 (0-5) Ur Squamous Epith Cells Few (None-Few) Urine Bacteria None (None) Imaging Data CT scan - abdomen: Attestation: I have reviewed the pertinent imaging results. My impression: Hydroureter and hydronephrosis on the right with no obvious stone or reason for obstruction seen. Radiologist's impression: PRELIMINARY IMPRESSION: 1. Severe right renal pelvicaliectasis and mild perinephric edema seen. 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 2. Prior examinations and reports from 2019 are currently not available for comparison. 3. Severe sigmoid and moderate descending colonic diverticulosis present. The appendix is not identified. Discharge Plan Discharge Clinical Impression: Urinary obstruction Patient Disposition: Home w/ Parent or Adult Condition: Stable Instructions: Ureteral Stent Placement (DC) Additional Instructions: As we discussed, it looks as though your ureter is kinked again, near the bottom of the ureter close to where it joins the bladder. I do believe this is the source of your pain. I spoke with the urologist executive personal assistant, Dr. Amado. He agrees that there may need to be another stent placed. He would like for you to call the office right away in the morning. Use the number on your discharge paperwork from the procedure. They should be working you in within the next couple of days. In the meantime, I would like for you to take Tylenol 1000 mg every 6 hours for pain. I am also giving you a small supply of oxycodone. You may use 1 tablet up to every 4 hours if the pain is severe. As we discussed, this tends to be a very painful condition. Continue drinking plenty of fluids and take your other medications as prescribed. You can come back to the emergency department if the pain is unbearable and we will look at getting you transferred to [place]. Activity Level: No Restrictions Discharge Diet: Regular Prescriptions: No Action albuterol sulfate 2.5 mg /3 mL (0.083 %) solution for nebulization 2.5 mg continuous nebulization Q4H PRN (Reason: cough) hydrochlorothiazide 12.5 mg capsule 12.5 mg PO DAILY levothyroxine [Synthroid] 88 mcg tablet 88 mcg PO DAILY losartan 25 mg tablet 50 mg PO DAILY Xarelto 20 mg tablet 20 mg PO QPM aspirin [Adult Aspirin Regimen] 81 mg tablet,delayed release (DR/EC) 81 mg PO DAILY Follow Up/Referrals: MEKA RUCKER DO [Primary Care Provider] - Stand Alone Forms: [employer] Info Instructions
[2024-03-08] MEDS: 0.9 % SODIUM CHLORIDE 1000 ml 1,000 ML 500 ML IV (02:04)
[2024-03-08] MEDS: TAMSULOSIN HCL 0.4 MG CAPSULE PO (02:05)
[2024-03-08] MEDS: OXYCODONE 5 MG TABLET PO ×2 (02:05→03:12)
[2024-03-08] MEDS: ONDANSETRON 2 MG/ML inj 4 MG IVP (02:05)
[2024-03-08 02:07] LABS: Basophils Absolute Auto 0.04 K/uL (0.00-0.30); Basophils Percent Auto 0.4 % (0.0-3.0); Eosinophils Absolute Auto 0.08 K/uL (0.00-0.50); Eosinophils Percent Auto 0.8 % (0.0-7.0); Hematocrit 31.2 % (33.0-51.0); Hemoglobin* 10.2 gm/dL (12.0-16.0); Immature Granulocytes Abs Auto 0.01 K/uL (0.00-0.30); Immature Granulocytes Pct Auto 0.1 %; Mean Corpuscular HGB Conc 33 gm/dL (32-36); Mean Corpuscular Hemoglobin 30 pg (26-34); Mean Corpuscular Volume 90 fL (80-100); Monocytes Percent Auto 8.6 % (0.0-11.0); Neutrophils Absolute Auto 4.15 K/uL (1.7-7.0); Neutrophils Percent Auto 42.1 % (42.0-72.0); Platelet Count* 341 K/uL (140-440); RDW Coefficient of Variation % 14.8 % (11.5-15.5); Red Blood Count 3.45 m/uL (4.00-5.20); White Blood Count* 9.86 K/uL (4.50-11.00)
[2024-03-08 02:12] LABS: Slide Review Reflex No
[2024-03-08 02:18] LABS: Chloride* 105 mmol/L (96-114); Sodium* 137 mmol/L (135-149)
[2024-03-08 02:19] LABS: Potassium* 4.3 mmol/L (3.6-5.1)
[2024-03-08 02:21] LABS: Creatinine* 1.4 mg/dL (0.5-1.5); Est. Creatinine Clearance* 25.19; Estimated Glomerular Filt Rate 37 ml/min
[2024-03-08 02:22] LABS: Anion Gap 9 mEq/L (7-15); Blood Urea Nitrogen* 28 mg/dL (7-30); Calcium* 9.4 mg/dL (8.4-10.6); Carbon Dioxide* 23 mmol/L (20-32); Glucose* 98 mg/dL (60-115)
[2024-03-08 02:25] LABS: C Reactive Protein* < 0.5 mg/dL (0.5-1.0)
[2024-03-08 02:40] LABS: Appearance Urine Clear (Clear); Bilirubin Urine Negative (Negative); Blood Urine Trace-intact (Negative); Color Urine Yellow (Yellow); Glucose Urine Negative (Negative); Ketones Urine Negative (Negative); Leukocyte Esterase Urine Negative (Negative); Nitrite Urine Negative (Negative); Protein Urine Negative (Negative); Specific Gravity Urine 1.015 (1.000-1.030); Urobilinogen Urine 0.2 (0.2-1.0); pH Urine 7.5 (5.0-8.5)
[2024-03-08 02:46] VITALS: BP 192/70; PULSE 60; RESP 16; O2SAT 100
[2024-03-08 02:47] LABS: RBC Urine 0-2 (0-2); Squamous Epithelial Cell Urine Few (None-Few); WBC Urine 0-2 (0-5)
[2024-03-08] MEDS: CALCIUM CARBONATE 500 MG CHEW PO (02:57)
== END 2024-03-08 04:22 | disposition home or self-care (01) ==
PROVIDERS: Emergency Provider Family Medicine; PCP Student in an Organized Health Care Education/Training Program
DX: N13.9 Obstructive and reflux uropathy, unspecified (principal)
CPT/HCPCS: 36415; 51798; 74177; 80048; 81001; 81003; 85025; 86140; 96361; 96374; 99284; 99285; A9270; J2405; J7030; Q9967

== ENCOUNTER 2024-04-11 13:43 | Emergency (ER) | payer MEDICARE, BC, SELFPAY ==
[2024-04-11] VITALS (21 sets, daily range): BP systolic 185–216; BP diastolic 75–99; PULSE 52–82; RESP 16–18; TEMP 36.8; O2SAT 97–100; BMI 28.5
--- NOTE | 2024-04-11 13:53 | ED_ITS ---
HPI - General Adult General Chief complaint: Hypertension Stated complaint: hypertension Time Seen by Provider: 04/11/24 13:45 History of Present Illness HPI narrative: c/o blood pressure of 213 /93. pt is dizzy, has headache and nauseas in triage. pt denies chest pain and SOB. pt. was told to come to the ER by [email or web address] cardiology. 84-year-old woman presenting to the emergency department with concern of high blood pressure. She has numerous readings of low 200s over up to 107. As increasingly lengthy history of difficult to control blood pressure. Complicated most recently by renal stent and reports of ?sepsis?. Did finally get this stent removed I believe around a month ago. She no longer takes hydrochlorothiazide. Has been taking losartan for about 1 week. When last seen at this facility was evaluated for PRES; this was not ultimately diagnosed. She has a mild headache today; definitely not as bad she has experienced in the past. She is vaguely nauseated and has been since the morning. Otherwise no fever. She does note some renal insufficiency with a mildly elevated creatinine she says. No visual changes. When presented to clinic today was recommended to come to the emergency department. She is not having chest pain nor shortness of breath. Has not been having unusual lower extremity swelling. She describes a mild frontal/forehead headache Related Data Home Medications ?Medication ?Instructions ?Recorded ?Confirmed levothyroxine 88 mcg tablet 88 mcg PO DAILY 01/07/23 04/11/24 (Synthroid) losartan 25 mg tablet 50 mg PO DAILY 01/07/23 04/11/24 albuterol sulfate 2.5 mg/3 mL 2.5 mg continuous nebulization Q4H 01/14/23 06/02/23 (0.083 %) solution for nebulization PRN cough aspirin 81 mg tablet,delayed 81 mg PO DAILY 02/14/24 04/11/24 release (Adult Aspirin Regimen) Allergies Allergy/AdvReac Type Severity Reaction Status Date / Time WILLIAM Inhibitors Allergy Mild Hives Verified 04/11/24 13:47 hyoscyamine [From Levsin] Allergy Mild Hives Verified 04/11/24 13:47 apixaban [From Eliquis] AdvReac Intermediate Diarrhea Verified 04/11/24 13:47 lisinopril AdvReac Mild Cough Verified 04/11/24 13:47 metoprolol AdvReac Mild Cough Verified 04/11/24 13:47 Review of Systems Status of ROS: Reports: 6 or more systems reviewed and unremarkable except as noted in History and below PFSH PFS Medical History Vitamin D deficiency ?E55.9 - Vitamin D deficiency, unspecified (ICD-10) Osteopenia ?M85.80 - Other specified disorders of bone density and structure, unspecified site (ICD-10) 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 - Migraine with aura, not intractable, without status migrainosus (ICD-10) Intestinal infection due to campylobacter ?A04.5 - Campylobacter enteritis (ICD-10) Hypothyroidism ?E03.9 - Hypothyroidism, unspecified (ICD-10) Hypertension ?I10 - Essential (primary) hypertension (ICD-10) Hyperlipidemia ?E78.5 - Hyperlipidemia, unspecified (ICD-10) Hiatal hernia ?K44.9 - Diaphragmatic hernia without obstruction or gangrene (ICD-10) Esophageal reflux ?K21.9 - Gastro-esophageal reflux disease without esophagitis (ICD-10) Edema ?R60.9 - Edema, unspecified (ICD-10) Duodenal ulcer, unspecified as acute or chronic, without hemorrhage or perforation ?K26.9 - Duodenal ulcer, unspecified as acute or chronic, without hemorrhage or perforation (ICD-10) Chest pain ?R07.9 - Chest pain, unspecified (ICD-10) Anticoagulation monitoring, INR range 2-3 ?Z79.01 - residential (current) use of anticoagulants (ICD-10) Surgical History History of eye surgery ?Z98.890 - Other specified postprocedural states (ICD-10) History of lumbar discectomy ?Z98.890 - Other specified postprocedural states (ICD-10) History of cholecystectomy ?Z90.49 - Acquired absence of other specified parts of digestive tract (ICD- 10) History of knee replacement ?Z96.659 - Presence of unspecified artificial knee joint (ICD-10) History of surgery on lower extremity ?Z98.890 - Other specified postprocedural states (ICD-10) History of surgery on lower extremity ?Z98.890 - Other specified postprocedural states (ICD-10) History of esophagogastroduodenoscopy (EGD) ?Z98.890 - Other specified postprocedural states (ICD-10) S/P epidural steroid injection ?Z92.241 - Personal history of systemic steroid therapy (ICD-10) History of colonoscopy ?Z98.890 - Other specified postprocedural states (ICD-10) History of cataract removal with insertion of prosthetic lens ?Z98.49 - Cataract extraction status, unspecified eye (ICD-10) ?Z96.1 - Presence of intraocular lens (ICD-10) History of breast augmentation ?Z98.82 - Breast implant status (ICD-10) History of appendectomy ?Z90.49 - Acquired absence of other specified parts of digestive tract (ICD- 10) Social History Smoking Status: Never smoker Do you use any of these nicotine containing products: None Second hand tobacco smoke exposure: No How often do you have a drink containing alcohol: never How often do you have six or more drinks on one occasion: Never AUDIT-C Alcohol total score: 0 Non-prescribed substance use: denies use service: No Exam Narrative: Exam Narrative: Pleasant. NAD. Has careful notes written out on no pads. Slightly tremulous. Cranial nerves 2-12 intact. Pupils are equal and brisk. Lungs are clear. Heart in regular rate and rhythm. I do not hear any murmur rub or gallop. No JVD. Abdomen is protuberant soft nontender. Extremities are well perfused. Has full strength. No lower extremity edema. Sore to palpation in particular over the medial trapezius musculature bilaterally in into the paracervical musculature. Const: Vital Signs, click to edit/add: Vital Signs - 24 hr 04/11/24 13:47 04/11/24 14:02 04/11/24 14:15 Temperature 98.3 F Pulse Rate 69 62 Pulse Rate [Pulse Oximeter] 78 Respiratory Rate 16 Blood Pressure Blood Pressure [Ri ght Upper Arm] 216/75 H Pulse Oximetry 99 100 100 Oxygen Delivery Me thod Room Air 04/11/24 14:17 04/11/24 14:29 04/11/24 14:30 Temperature Pulse Rate 67 65 64 Pulse Rate [Pulse Oximeter] Respiratory Rate 16 Blood Pressure 190/99 H 204/87 H Blood Pressure [Ri ght Upper Arm] Pulse Oximetry 100 100 100 Oxygen Delivery Me thod 04/11/24 14:45 04/11/24 15:00 04/11/24 15:01 Temperature Pulse Rate 63 70 57 L Pulse Rate [Pulse Oximeter] Respiratory Rate 16 Blood Pressure 203/94 H Blood Pressure [Ri ght Upper Arm] Pulse Oximetry 98 100 99 Oxygen Delivery Me thod 04/11/24 15:02 04/11/24 15:15 04/11/24 15:30 Temperature Pulse Rate 65 62 58 L Pulse Rate [Pulse Oximeter] Respiratory Rate Blood Pressure 205/77 H Blood Pressure [Ri ght Upper Arm] Pulse Oximetry 99 97 98 Oxygen Delivery Me thod 04/11/24 15:32 04/11/24 15:33 04/11/24 16:16 Temperature Pulse Rate 61 62 69 Pulse Rate [Pulse Oximeter] Respiratory Rate Blood Pressure 188/76 H Blood Pressure [Ri ght Upper Arm] Pulse Oximetry 99 98 98 Oxygen Delivery Me thod 04/11/24 16:17 04/11/24 16:30 04/11/24 16:32 Temperature Pulse Rate 57 L 52 L 53 L Pulse Rate [Pulse Oximeter] Respiratory Rate Blood Pressure 185/75 H 190/75 H Blood Pressure [Ri ght Upper Arm] Pulse Oximetry 100 99 100 Oxygen Delivery Nv thod 04/11/24 16:45 04/11/24 17:00 04/11/24 17:16 Temperature Pulse Rate 54 L 60 Pulse Rate [Pulse Oximeter] 82 Respiratory Rate 18 Blood Pressure Blood Pressure [Ri ght Upper Arm] 188/87 H Pulse Oximetry 99 99 Oxygen Delivery Me thod Documenting provider has reviewed patient's vital signs: yes Course Vital Signs Vital signs: Initial Vital Signs Temperature 98.3 F 04/11/24 13:47 Temperature Source Temporal Artery Scan 04/11/24 13:47 Pulse Rate 78 04/11/24 13:47 Respiratory Rate 16 04/11/24 13:47 Blood Pressure 216/75 H 04/11/24 13:47 Blood Pressure Mean 122 H 04/11/24 13:47 Blood Pressure Position Sitting 04/11/24 13:47 Pulse Oximetry 99 04/11/24 13:47 Oxygen Delivery Method Room Air 04/11/24 13:47 Vital Signs Temperature 98.3 F 04/11/24 13:47 Pulse Rate 78 04/11/24 13:47 Respiratory Rate 16 04/11/24 13:47 Blood Pressure 216/75 H 04/11/24 13:47 Pulse Oximetry 99 04/11/24 13:47 Oxygen Delivery Method Room Air 04/11/24 13:47 Temperature 98.3 F 04/11/24 13:47 Pulse Rate 82 04/11/24 17:16 Respiratory Rate 18 04/11/24 17:16 Blood Pressure 188/87 H 04/11/24 17:16 Pulse Oximetry 99 04/11/24 17:00 Oxygen Delivery Method Room Air 04/11/24 13:47 Medications Administered Medications: Discontinued Medications Generic Name Dose Route Start Last Admin Trade Name Julio PRN Reason Stop Dose Admin Amlodipine Besylate 5 mg 04/11/24 14:07 04/11/24 14:27 Amlodipine 5 Mg Tablet PO 04/11/24 14:08 5 mg ONCE ONE Administration Medical Decision Making MDM Narrative Medical decision making narrative: Does seem to be mentating quite well. Do not see evidence of encephalopathy. Does have a mild headache. Will check for other evidence of hypertensive emergency that I do not think is evidenced here. EKG reviewed by me shows normal sinus at a rate of 74. I do not appreciate ischemic changes. 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 Check renal function compared to baseline. I would like to give a dose of amlodipine. She does not have any lower extremity edema is noted. Apparently had taken this in the past. She reports being fully weaned off of blood pressure medication prior to renal stent placement. Amlodipine at least does not have specific action in the kidney. Creatinine has crept up a little bit at 1.6 today. About one month ago was 1.4. She did report that she did have slight increase couple of weeks ago when labs were checked elsewhere. Records provided by daughter show a creatinine most recently at a couple weeks ago 1.6. They reporting that this was improved from before. So looks to be stable at least over the last few weeks. She does report that had 20% function in 1 kidney and 80% in another and that is of longstanding duration. Reports that provider directed her to the emergency department today, sounds like it was Cardiology, wanted a ?renal scan?. Reviewing records I see CT imaging done here of the abdomen pelvis about month ago. No ultrasounds. I think could do renal ultrasound and would be more reluctant to repeat CT imaging particularly with contrast. Discussed findings with grocery store courtesy clerk. Radiology over-read as below INDICATION: comparison imaging, uncontrolled htn. TECHNIQUE: Ultrasound renal and bladder complete. Holloway-scale and color Doppler sonographic images were acquired of the kidneys and urinary bladder. COMPARISON: March 08, 2024 CT of the abdomen and pelvis. FINDINGS: Right kidney: 9.3 x 4.8 x 5.1 cm. Left kidney: 9.3 x 5.2 x 4.6 cm. Normal echotexture and cortex. No suspicious masses, stones. Moderate to severe right-sided hydronephrosis, similar to comparison CT from March 08, 2024. Bladder: Normal in caliber and appearance. Color Doppler images demonstrate left ureteral jet. Right jet is not visualized. IMPRESSION: Moderate to severe right-sided hydronephrosis, similar to CT from March 08, 2024. After about an hour and 20 minutes after amlodipine is start to see some improvement in her blood pressure. Most recently at 188/76. Certainly have room to grow with antihypertensives considering has only been taking losartan that is typically slower in effect and has only been taking this again over the last week. See patient discharge plan for further discussion Medical Records Medical records reviewed: Yes I reviewed the patient's medical records Lab Data Lab results reviewed: Yes I reviewed the patient's lab results Labs: Lab Results 04/11/24 04/11/24 Range/Units 14:15 Unknown WBC 8.90 (4.50-11.00) K/uL RBC 3.58 L (4.00-5.20) m/uL Hgb 10.5 L (12.0-16.0) gm/dL Hct 32.1 L (33.0-51.0) % MCV 90 (80-100) fL MCH 29 (26-34) pg MCHC 33 (32-36) gm/dL RDW Coeff of Albert 14.8 (11.5-15.5) % Plt Count 338 (140-440) K/uL Neut % (Auto) 42.7 (42.0-72.0) % Lymph % (Auto) 46.1 H (20-44) % [place] % (Auto) 9.7 (0.0-11.0) % Eos % (Auto) 0.8 (0.0-7.0) % Baso % (Auto) 0.4 (0.0-3.0) % Neut # (Auto) 3.80 (1.7-7.0) K/uL Lymph # (Auto) 4.10 H (0.90-2.90) K/uL [place] # (Auto) 0.90 (0.00-0.90) K/UL Eos # (Auto) 0.07 (0.00-0.50) K/uL Baso # (Auto) 0.04 (0.00-0.30) K/uL Abs Immat Gran (auto) 0.03 (0.00-0.30) K/uL Imm/Tot Granulo (auto) 0.3 % Sodium 137 (135-149) mmol/L Potassium 4.8 (3.6-5.1) mmol/L Chloride 106 (96-114) mmol/L Carbon Dioxide 21 (20-32) mmol/L Anion Gap 10 (7-15) mEq/L BUN 36 H (7-30) mg/dL Creatinine 1.6 H (0.5-1.5) mg/dL Estimated Creat Clear 21.65 Estimated GFR 32 ml/min Glucose 93 (60-115) mg/dL Calcium 9.3 (8.4-10.6) mg/dL Magnesium 2.3 (1.5-2.6) mg/dL C-Reactive Protein < 0.5 L (0.5-1.0) mg/dL Urine Color Yellow (Yellow) Urine Appearance Clear (Clear) Urine pH 6.5 (5.0-8.5) Ur Specific [place] 1.015 (1.000-1.030) Urine Protein Negative (Negative) Urine Glucose (UA) Negative (Negative) Urine Ketones Negative (Negative) Urine Blood Negative (Negative) Urine Nitrite Negative (Negative) Urine Bilirubin Negative (Negative) Urine Urobilinogen 0.2 (0.2-1.0) Ur Leukocyte Esterase Negative (Negative) POC Troponin I 0.01 (0.01-0.04) ng/ml ECG Data Attestation: I personally reviewed and interpreted this ECG as follows: (Normal sinus rhythm rate of 74 without ischemic changes) Discharge Plan Discharge Clinical Impression: Hypertensive urgency, Renal insufficiency Patient Disposition: Home w/ Parent or Adult Condition: Improved Additional Instructions: Take your amlodipine as 10 mg once daily or 5 mg twice daily. Today at least I would take another 5 mg tablet after supper. Continue to take your losartan; double check dosing recommendations. Can check your blood pressure once a day maybe mid to later morning after period of rest or if you are feeling particularly unwell. Report a few days of blood pressure measurements to your primary care provider. Might consider scheduling a follow-up with primary care provider for 7-10 days from now. Report labs from today and ultrasound report as well as blood pressures going forward to primary, Cardiology and Urology. Return/be seen otherwise for persistent increasing shortness of breath, severe headache, repeated vomiting, visual changes, chest pain, marked swelling of the lower extremities. Results of your urinalysis is still pending. I will call you if there is appears to be more to discuss. Prescriptions: No Action albuterol sulfate 2.5 mg /3 mL (0.083 %) solution for nebulization 2.5 mg continuous nebulization Q4H PRN (Reason: cough) levothyroxine [Synthroid] 88 mcg tablet 88 mcg PO DAILY losartan 25 mg tablet 50 mg PO DAILY aspirin [Adult Aspirin Regimen] 81 mg tablet,delayed release (DR/EC) 81 mg PO DAILY Follow Up/Referrals: MEKA RUCKER DO [Primary Care Provider] - Stand Alone Forms: PeerIndex Info Instructions
--- OUTSIDE RECORDS SUMMARY | 2024-04-11 14:21 | XMS_ITS | Encounter Summary ---
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.5] Procedures OH CYSTOSCOPY,INSERT URETERAL STENT [place] UROGRAPHY, RETROGRADE W/WO KUB CYSTOSCOPY , RIGHT RETROGRADE PYELOGRAM , POSSIBLE RIGHT STENT EXCHANGE Periop Services [address] [place] [address] Referral ID Status Reason Start Date Expiration Date Visits Re quested Visits Authorized [id number] 1 1 Encounter Details Date Type Department Care Team (Late st Contact Info) Description 02/17/2024 10:32 AM CDT - 02/18/2024 5:22 PM CDT Emergency [facility] Extended Recovery and Short Stay [address] [place] [address] Sandro Collado MD [facility] [address] [place] [address] Benjamin Moss DO [address] [place] [address] Essential hypertension (Primary Dx); Hypertensive urgency; [...] Patient brought down to door 2 by nursing clinical director. * Moy Stewart NP - 02/18/2024 4:22 PM CDT [facility] Hospitalist Discharge Summary Date of Admission: 02/17/2024 [...] difficulty and was seen for TIA at [facility] where they obtained an MRI and it [...] minutes discharging this patient. Moy Stewart NP [facility] EXTENDED RECOVERY AND SHORT STAY [address] [place] [phone] Physical Exam Vital Signs: Temp: 97.9 ??F [...] Narrative EXAM: CT HEAD W/O CONTRAST LOCATION: [facility] DATE: 02/17/2024 INDICATION: severe headache, hypertension [...] above. Echocardiogram Complete Value LVEF 60-65% Narrative [id number]^PAT^MOY^TC [facility] Echocardiography Laboratory [address] [place] [address] Name: SUN ALEMAN : 1940 Study Date: 02/18/2024 10:07 AM Age: 83 yrs Gender: Female Patient Location: [facility] Reason For Study: Hypertension (HTN) Ordering [...] PM CDT Admission/Transfer from: home 2 RN skin assessment completed. Yes Name of 2nd RN: Tatum Castle Significant findings include: dry skin [facility] Nurse Consult Ordered? No * Jenniffer Hood [...] Benjamin Moss, - 02/17/2024 1:13 PM CDT [facility] History and Physical - Hospitalist Service Date [...] difficulty and was seen for TIA at [facility] where they obtained an MRI and it [...] Anticipated Tomorrow Benjamin Moss DO Hospitalist Service [facility] Securely message with [email or web address] (more info) Text page via [email or web address] Paging/Directory Chief Complaint Elevated blood pressure History [...] She was seen for transient aphasia at [facility] and diagnosed with possible TIA. MRI [...] ENTROPION REPAIR; Surgeon: Benjamin Mckeon MD; Location: [facility] Prior to Admission Medications Prior to [...] tylenol. BP 169/67. RN paged Dr. Moss, [place] pt's condition. Update: MD returned call. Per , RN to administer oral oxycodone for pain and send to head CT. MD to order one-time dose of IV dilaudid for breakthrough pain. RN called receiving RN, updating on MD call and plan of care as pt is in room 5512 now. RN is aware. 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 ED NURSE PHONE NUMBER: [phone] * Fawad Chapa RN - 02/17/2024 10:21 [...] week, she states she was in the [facility] emergency department on several occasions over the past week, once for an episode of speech difficulty that res olved on its own and another for a headache and continued high blood pressures over 200s. She states that she previously had a history of high blood pressure was on 3 medications, though after converting to a plant-based diet in conjunction with her winch driver, she was able to stop all these medicines, lose 24 pounds, and have blood pressures down into the 130s. She denies any chest pain. No current speech symptoms. She lives with her who has been feeling well. Independent Historian: Daughter at bedside, who expresses concern about recent visits to the [facility] emergency department. 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 12/24/2023 Priority: Medium Atrial fibrillation, unspecified type (H) 12/18/2022 Priority: Medium Hypertensive kidney disease, stage V (H) 01/05/2022 Priority: Medium Aortic valve regurgitation 12/08/2021 Priority: Medium Mitral valve regurgitation 12/08/2021 Priority: Medium Gastroesophageal reflux disease without esophagitis 10/24/2021 Priority: Medium Chronic fibrosis of lung (H) 10/23/2021 Priority: Medium Essential hypertension 07/31/2021 Priority: Medium 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 Halls continues to confirm no change 2020 Arthritis [...] 100 % -- -- 02/17/24 1110 (!) 208/73 -- -- 61 14 99 % -- -- 02/17/24 1024 (!) 201/70 -- -- -- -- -- -- -- [...] alert, clear speech, fully oriented, face symmetric, barrel polisher normal, strength and sensation intact in all extr, no nuchal rigidity, ambulatory without ataxia Psych: cooperative, pleasant Emergency Department Course Electrocardiogram ECG taken at 1049, ECG interpreted at 1140 by Holley Collado MD Sinus rhythm, no ST elevation, artifact present especially in leads V3 and V6 Rate 60 bpm. OH interval 158. QRS duration 80. QTc 430 [...] MD Heaven Lobo Jeffrey Alan, MD 02/17/24 1607 documented in this encounter Miscellaneous Notes * [...] admitted for high BP in 200s from [facility] today SAFETY RISK Concerns (fall risk, behaviors, etc.): fall risk Isolation/Type: none Tests/Procedures for NEXT shift: labs in am. Cysto was cancelled today Consults? (Pending/following, signed-off?) Urology following outpatient Where is patient from? (Home, TCU, etc.): home Other Important info for NEXT shift: pt sent from [facility] today. Pt came in for cysto and [...] * Pharmacy-Admission Medication History - Mirian Tang [facility] - 02/17/2024 12:53 PM CDT Pharmacist Admission Medication History Admission medication history is complete. The information provided in this note is only as accurateas the sources available at the time of the update. Information Source(s): Patient and CareEverywhere/SureScripts via in-person Pertinent Information: Patient is no longer on Lopressor or Xarelto. Changes made to STROBOSCOPE OPERATOR medication list: Added: Blink tears Deleted: Prilosec, ascorbic acid, albuterol neb, Tylenol PM, [place]. Changed: None Allergies reviewed with patient and updates made in EHR: no Medication History Completed By: Mirian Tang RPH 02/17/2024 12:53 PM STROBOSCOPE OPERATOR Med List Medication Sig Last Dose levothyroxine [...] MICR O GENERAL ORDERABLES [facility] IDD LABORATORY [facility] Inf. Diseases Diag. Lab [address] [facility], [address] [place] [address], [facility] * (ABNORMAL) UA Macroscopic with reflex to [...] mg/dL 02/18/2024 11:33 AM CDT LABORATORY Specific [place] Urine 1.011 1.003 - 1.035 02/18/2024 11:33 [...] AM CDT 02/18/2024 11:24 AM CDT Narrative SH LABORATORY - 02/18/2024 11:33 AM CDT Urine Culture ordered based on laboratory criteria Moy Stewart NP LAB - URIN E ORDERABLES LABORATORY [facility] Acute Care Lab [address] floor, [address] [address], [facility] [phone] * ECHO COMPLETE (02/18/2024 10:54 AM CDT) LVEF 60-65% CARDIOLOGY RESULTS Anatomical Region Laterality Modality Echocardiography 02/18/2024 10:0 7 AM CDT Narrative 02/18/2024 3:16 PM CDT [id number]^PAT^MOY^TC [facility] Echocardiography Laboratory [address] [place] [address] Name: SUN ALEMAN : 1940 Study Date: 02/18/2024 10:07 AM Age: 83 yrs Gender: Female Patient Location: [facility] Reason For Study: Hypertension (HTN) Ordering [...] Procedure Note Yajaira Vences MD - 02/18/2024 [id number]^PAT^MOY^TC [facility] Echocardiography Laboratory [address] [place], [place] [address] Name: SUN ALEMAN : 1940 Study Date: 02/18/2024 10:07 AM Age: 83 yrs Gender: Female Patient Location: [facility] Reason For Study: Hypertension (HTN) Ordering [...] Jd Spain 02/18/2024 03:16 PM Moy Stewart MELT HOUSE DRAG OPERATOR CV ECHO OR DERABLES * (ABNORMAL) Basic metabolic panel (02/18/2024 7:06 AM CDT) Sodium 139 135 - 145 mmol/L 02/18/2024 7:41 AM [facility] LABORATORY Comment:Reference intervals for this test were updated on 06/22/2023 to more accurately reflect our healthy population. There may be differences in the flagging of prior results with similar values performed with this method. Interpretation of those prior results can be made in the context of the updated reference intervals. Potassium 4.2 3.4 - 5.3 mmol/L 02/18/2024 7:41 AM T LABORATORY Chloride 107 98 - 107 mmol/L 02/18/2024 7:41 AM T LABORATORY Carbon Dioxide (CO2) 22 22 - [...] 70 - 99 mg/dL 02/18/2024 7:41 AM [facility] LABOR[facility] Blood STRUCTURE OF RIGHT HAND / Unknown Venipuncture / Unknown 02/18/2024 7:06 AM CDT 02/18/2024 7:11 AM CDT Benjamin Moss DO LAB - BLOOD O RDERABLES LABORATORY [facility] Lab [address] floor, [address] [place] [address], [facility] [phone] * (ABNORMAL) Troponin T, High Sensitivity (02/18/2024 [...] DO LAB - BLOOD O RDERABLES LABORATORY [facility] Lab [address] floor, [address] [place] [address], [facility] [phone] * (ABNORMAL) Troponin T, High Sensitivity (02/17/2024 [...] LAB - BLOOD O RDERABLES LABORATORY [facility] Acute Care Lab [address], [address] [place] [address], [facility] [phone] * CT Head w/o Contrast (02/17/2024 4:29 [...] CDT EXAM: CT HEAD W/O CONTRAST LOCATION: [facility] DATE: 02/17/2024 INDICATION: severe headache, hypertension [...] 02/17/2024 EXAM: CT HEAD W/O CONTRAST LOCATION: [facility] DATE: 02/17/2024 INDICATION: severe headache, hypertension [...] LAB - BLOOD O RDERABLES LABORATORY [facility] Acute Care Lab [address] floor, [address] [place] [address], [facility] [phone] * (ABNORMAL) Troponin T, High Sensitivity (02/17/2024 11:05 AM CDT) Troponin T, High Sensitivity 15(H) [...] Collado MD LAB - BLOOD ORD ERAMELISSA [facility] Lab [address], [address], [place] [address], [facility] [phone] * Extra Red Top Tube (02/17/2024 11:05 AM CDT) Hold Specimen [facility] 02/17/2024 12:16 PM CDT LABORATORY Blood BLOOD SPECIMEN / Unknown Venipuncture / Unknown 02/17/2024 11:05 AM CDT 02/17/2024 11:10 AM CDT Sandro Collado MD LAB - BLOOD ORD ERABLES [facility] Lab [address], [address] [place] [address], [facility] [phone] * Extra Blue Top Tube (02/17/2024 11:05 AM CDT) Hold Specimen [facility] 02/17/2024 12:16 PM CDT LABORATORY Blood BLOOD SPECIMEN / Unknown Venipuncture / Unknown 02/17/2024 11:05 AM CDT 02/17/2024 11:10 AM CDT Sandro Collado MD LAB - BLOOD ORD ERABLES LABORATORY [facility] Acute Care Lab [address], [address] [place] [address], [facility] [phone] * (ABNORMAL) CBC with platelets and differential [...] LAB - BLOOD ORD ERABLES LABORATORY [facility] Acute Care Lab [address], [address] [place] [address], [facility] [phone] * (ABNORMAL) Basic metabolic panel (02/17/2024 11:05 AM CDT) [facility] Sodium 138 135 - 145 mmol/L [...] LAB - BLOOD ORD ERABLES LABORATORY [facility] Acute Care Lab [address], [address] [place] [address], [facility] [phone] * EKG 12-lead, tracing only (02/17/2024 10:49 AM CDT) Systolic Blood Pressure mmHg RADIOLOGY RESULTS Diastolic Blood Pressure mmHg RADIOLOGY RESULTS Ventricular Rate 60 BPM RAD IOLOGY RESULTS Atrial Rate 60 BPM RADIOLOG Y RESULTS OH Interval 158 ms RADIOLOG Y RESULTS QRS Duration 80 ms RADIOLO GY RESULTS QT 430 ms RADIOLOGY RESULTS QTc 430 ms RADIOLOGY RESULTS P [employer] [place] 15 degrees RADIOLOGY RESULTS R AXIS -35 degrees RADIOLOGY RESULTS T [employer] [place] 52 degrees RADIOLOGY RESULTS Interpretation ECG Sinus [...] 4 HOURS PRN, moderate pain, Starting on [facility] 02/17/24 at 1554 $Given 02/17/2024 4:05 PM [...] 2 TIMES DAILY PRN, constipation, Starting on [facility] 02/17/24 at 1557, IF more than 1 [...] stools. documented in this encounter Care Teams Librarian Helper Relationship Specialty Start Date End Date Rachael Boss PCP - General 08/23/12 02/22/24 documented as of this encounter
--- OUTSIDE RECORDS SUMMARY | 2024-04-11 14:21 | XMS_ITS | Encounter Summary ---
Author Organization [facility] Address [address] [place] [address] Care Team Providers Care Home Theater Installer Name Role Phone Irma Mandujano MD Primary Care Provider [phone] Encounter Details Date Type Department Care Team (Latest Contact Info) Description 03/15/2024 Travel Social History Tobacco Use Types Packs/Day [...] on filedocumented in this encounter Care Teams Home Theater Installer Relationship Specialty Start Date End Date Irma Mandujano MD [address] [facility] [place] [address] PCP - General Family Medicine 02/23/24 documented as of this encounter
--- OUTSIDE RECORDS SUMMARY | 2024-04-11 14:21 | XMS_ITS | Encounter Summary ---
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] Procedures [place] CYSTOSCOPY,INSERT URETERAL STENT [place] UROGRAPHY, RETROGRADE W/WO KUB CYSTOSCOPY , RIGHT RETROGRADE PYELOGRAM , POSSIBLE RIGHT STENT EXCHANGE Sh Periop Services [address] [place] [address] Referral ID Status Reason Start Date Expiration Date Visits Re quested Visits Authorized [id number] 1 1 Encounter Details Date Type Department Care Team (Latest Contact Info) Description 02/17/2024 8:33 AM CDT - 02/17/2024 10:30 AM CDT Hospital Encounter [facility] [address] [place] [address] Stone Sage MD [facility] [address] [address] Discharge Disposition: Home with Planned Hospital IP [...] mg 975 mg, Oral, ONCE, On [place] 5/23/24 at 0900, For 1 dose, Maximum acetaminophen [...] RN) documented in this encounter Care Teams College [employer] Faculty Member Relationship Specialty Start Date End Date Alli Boss PCP - General 08/23/12 02/22/24 documented as of this encounter
--- OUTSIDE RECORDS SUMMARY | 2024-04-11 14:21 | XMS_ITS | Clinical Summary ---
Author Organization [facility] Address [address] [place] [address] Care Team Providers Care Boiler Plant Operator Name Role Phone Irma Mandujano MD Primary Care Provider [phone] Allergies Active Allergy Reactions Criticality Noted Date Comments Abdon Inhibitors 09/07/2012 Levsin 09/07/2012 Metoprolol Succinate 09/07/2012 Medications Medication Sig Dispensed Refills Start Date End Date Status vitamin D3 (CHOLECALCIFEROL) 50 mcg (2000 units) tablet Take 1 tablet by mouth daily Active levothyroxine (SYNTHROID/LEVOTHROID) 88 MCG tablet Take 88 mcg by mouth daily Active losartan (COZAAR) 50 MG tablet Take 50 mg by mouth daily Active Magnesium Oxide 250 MG TABS Take 500 mg by mouth at bedtime Active Polyethylene Glycol 400 0.25 % GEL Apply 1-2 drops to eye every 2 hours as needed (dry eyes) Uses Blink brand Active hydroCHLOROthiazide 12.5 MG tabletIndications:Esse ntial hypertension Take 1 tablet (12.5 mg) by mouth daily 30 tablet 02/18/2024 Active Active Problems Problem Noted Date Diagnosed Date Diaphragmatic hernia 02/17/2024 Edema 02/17/2024 Overview: echo w/ EF 60% 01/31 Vitamin D deficiency 02/17/2024 Renal insufficiency 02/17/2024 Hypertensive urgency 02/17/2024 Anemia, unspecified type 02/17/2024 Ureteral stent present 02/17/2024 Asthma 02/16/2024 CHI (closed head injury) 02/16/2024 Mass of right lung 02/16/2024 TIA (transient ischemic attack) 02/16/2024 Anemia 12/24/2023 Hydronephrosis with ureteral stricture, not elsewhere classified 12/24/2023 USP current use of anticoagulant Atrial fibrillation, unspecified type 12/18/2022 Hypertensive kidney disease, stage V 01/05/2022 Aortic valve regurgitation 12/08/2021 Mitral valve regurgitation 12/08/2021 Gastroesophageal reflux disease without esophagi tis 10/24/2021 Chronic fibrosis of lung 10/23/2021 Essential hypertension 07/31/2021 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 [place] continues to confirm no change 2019 Arthritis of left foot 05/24/2018 Adjustment disorder with mixed anxiety and depre ssed mood 06/30/2015 Insomnia, unspecified 01/26/2008 Encounters Date Type Department Care Team Description 03/15/2024 12:37 PM CDT - 03/15/2024 11:59 PM CDT Hospital Encounter [facility] [address] [place] [id number] Stone Sage MD Stricture of ureter Discharge Disposition: Home or Self Care 03/15/2024 Travel 02/17/2024 10:42 AM CDT Anesthesia Event [facility] Emergency Dept [address] [place] [address] Gaudencio Reynolds MD [place], Amanda M, BELL RINGER FILER METAL PATTERNS 02/17/2024 10:32 AM CDT - 02/18/2024 5:22 PM CDT Emergency [facility] Extended Recovery and Short Stay [address] [place] [id number] Sandro Collado MD Steinbrueck, Eric Edward, Essential hypertension (Primary Dx); Hypertensive urgency; Ureteral stent present; Renal insufficiency; Anemia, unspecified type Discharge Disposition: Home or Self Care 02/17/2024 8:33 AM CDT - 02/17/2024 10:30 AM CDT Hospital Encounter [facility] Preop [address] [place] [address] Stone Sage MD Discharge Disposition: Home with [...] ANNUAL WELLNESS VISIT 01/05/2023 01/05/2022 COVID-19 Vaccine ( season) 2023 PHQ-2 (once per calendar year) [...] Procedure Name Priority Date/Time Associated Diagnosis Comments NM RENOGRAM WITH LASIX Routine 03/15/2024 2:14 PM CDT Stricture of ureter URINE CULTURE STAT 02/18/2024 11:04 AM CDT [...] CDT from Last 3 Months Results * NM Renogram with Lasix (03/15/2024 2:14 PM CDT) Anatomical Region Laterality Modality Abdomen/Pelvis Nuclear Medicine 03/15/2024 2:14 PM CDT Impressions 03/15/2024 2:20 PM CDT IMPRESSION: 1. Progressive accumulation of radiotracer within the right kidney without significant radiotracer excretion suggesting poor renal function. 2. Normal left kidney accounting for approximately 80% of the renal function Narrative 03/15/2024 2:20 PM CDT EXAM: NM RENOGRAM WITH LASIX LOCATION: [facility] DATE: 03/15/2024 INDICATION: ??Stricture of ureter. COMPARISON: None available at time of dictation. TECHNIQUE: 8.6 mCi of technetium-99m MAG3, IV followed by abdominal imaging. 40 mg of Lasix, IV. FINDINGS: Differential renal function of 78.6% on the left and 21.4% on the right. Prompt clearance of radiotracer from the left renal collecting system (Lasix T1/2: 10 minutes) without evidence of obstruction. There is poor radiotracer accumulation and into the right renal collecting system without significant radiotracer excretion during the course of the exam which is likely related to poor renal function. The Lasix T1/2 time is not calculated as 50% radiotracer did not empty from the right kidney Procedure Note Keenan Becker MD - 03/15/2024 EXAM: NM RENOGRAM WITH LASIX LOCATION: [facility] DATE: 03/15/2024 INDICATION: Stricture of ureter. COMPARISON: None available at time of dictation. TECHNIQUE: 8.6 mCi of technetium-99m MAG3, IV followed by abdominalimaging. 40 mg of Lasix, IV. FINDINGS: Differential renal function of 78.6% on the left and 21.4% onthe right. Prompt clearance of radiotracer from the left renal collectingsystem (Lasix T1/2: 10 minutes) without evidence of obstruction. There ispoor radiotracer accumulation and into the right renal collecting system without significant radiotracerexcretion during the course of the exam which is likely related to poorrenal function. The Lasix T1/2 time is not calculated as 50% radiotracerdid not empty from the right kidney IMPRESSION: 1. Progressive accumulation of radiotracer within the right kidney withoutsignificant radiotracer excretion suggesting poor renal function. 2. Normal left kidney accounting for approximately 80% of the renalfunction Stone Sage MD [facility]LES * (ABNORMAL) UA Macroscopic with reflex to [...] mg/dL 02/18/2024 11:33 AM CDT LABORATORY Specific [place] Urine 1.011 1.003 - 1.035 02/18/2024 11:33 [...] Stewart NP LAB - URIN E ORDERABLES Performing Organization Address City/State/[facility] Co de Phone Number LABORATORY [facility] Acute Care Lab [address] floor, [address] [place] [address], [facility] [phone] * Urine Culture (02/18/2024 11:04 AM CDT) Culture <10,000 CFU/mL Urogenital callie 02/19/2024 9:57 AM CDT [facility]AT[facility] Urine MID-STREAM URINE SPECIMEN / Unknown Non-blood Collection / Unknown 02/18/2024 11:04 AM CDT 02/18/2024 11:33 AM CDT Moy Stewart NP LAB - MICR O GENERAL ORDERABLES [facility]ORAT[facility] Inf. Diseases Diag. Lab [address] [facility], [address] [place] [address], [facility] * ECHO COMPLETE (02/18/2024 10:54 AM CDT) LVEF 60-65% CARDIOLOGY RESULTS Anatomical Region Laterality Modality Echocardiography 02/18/2024 10:0 7 AM CDT Narrative 02/18/2024 3:16 PM CDT [id number]^PAT^MOY^TC [facility] Echocardiography Laboratory [address] [place] [address] Name: SUN ALEMAN : 1940 Study Date: [...] Procedure Note Yajaira Vences MD - 02/18/2024 [id number]^PAT^MOY^TC [facility] Echocardiography Laboratory [address] [place] [address] Name: SUN ALEMAN : 1940 Study Date: [...] Jd Spain 02/18/2024 03:16 PM Moy Stewart APPLICATION DEVELOPMENT CONSULTANT CV ECHO OR DERABLES * (ABNORMAL) Basic metabolic panel (02/18/2024 7:06 AM CDT) Only the most recent of2 resultswithin the time period is included. [facility] Sodium 139 135 - 145 mmol/L 02/18/2024 7:41 AM [facility] Comment:Reference intervals for this test were [...] 98 - 107 mmol/L 02/18/2024 7:41 AM [facility] Carbon Dioxide (CO2) 22 22 - 29 mmol/L 02/18/2024 7:41 AM [facility] Anion Gap 10 7 - 15 mmol/L 02/18/2024 7:41 AM CDT LABORATORY Urea Nitrogen 18.2 8.0 - 23.0 mg/dL 02/18/2024 7:41 AM T LABORATORY Creatinine 1.23(H) 0.51 - 0.95 mg/dL 02/18/2024 7:41 AM [facility] GFR Estimate 43(L) >60 mL/min/1. 73m2 02/18/2024 7:41 AM T LABORATORY Calcium 9.1 8.8 - 10.2 mg/dL 02/18/2024 7:41 AM T LABORATORY Glucose 87 70 - 99 mg/dL 02/18/2024 7:41 AM [facility] Blood STRUCTURE OF RIGHT HAND / Unknown Venipuncture / Unknown 02/18/2024 7:06 AM CDT 02/18/2024 7:11 AM CDT Benjamin Moss DO LAB - BLOOD O RDERABLES LABORATORY [facility] Acute Care Lab [address] 1[address] floor, [address] [place] [address], [facility] [phone] * (ABNORMAL) Troponin T, High Sensitivity (02/18/2024 12:12 AM CDT) Only the most recent of3 resultswithin the time period is included. [facility] Troponin T, High Sensitivity 15(H) <=14 [...] DO LAB - BLOOD O RDERABLES LABORATORY [facility] Acute Care Lab [address], [address] [place] [address], [facility] [phone] * CT Head w/o Contrast (02/17/2024 4:29 [...] CDT EXAM: CT HEAD W/O CONTRAST LOCATION: [facility] DATE: 02/17/2024 INDICATION: severe headache, [...] 02/17/2024 EXAM: CT HEAD W/O CONTRAST LOCATION: [facility] DATE: 02/17/2024 INDICATION: severe headache, [...] Red Top Tube (02/17/2024 11:05 AM CDT) [facility] Hold Specimen [facility] 02/17/2024 12:16 PM CDT LABORATORY Blood BLOOD SPECIMEN / Unknown Venipuncture / Unknown 02/17/2024 11:05 AM CDT 02/17/2024 11:10 AM CDT Sandro Collado MD LAB - BLOOD ORD ERABLES LABORATORY [facility] [address], [address] [place] [address], [facility] [phone] * Extra Blue Top Tube (02/17/2024 11:05 AM CDT) Pathologist [facility] Hold Specimen JIC 02/17/2024 12:16 PM CDT LABORATORY Blood BLOOD SPECIMEN / Unknown Venipuncture / Unknown 02/17/2024 11:05 AM CDT 02/17/2024 11:10 AM CDT Sandro Collado MD LAB - BLOOD ORD ERABLES Performing Organization Address City/[facility]/ZIP Co de Phone Number LABORATORY [facility] [address], [address] [address], [facility] [phone] * (ABNORMAL) CBC with platelets and differential (02/17/2024 11:05 AM CDT) [facility] WBC Count 8.4 4.0 - 11.0 10e3/uL [...] 11:05 AM CDT 02/17/2024 11:10 AM CDT Sanrdo Collado MD LAB - BLOOD ORD ERABLES LABORATORY [facility] Acute Care Lab [address], [address] [place] [address], [facility] [phone] * TSH with free T4 reflex (02/17/2024 11:05 AM CDT) TSH 1.38 0.30 - 4.20 uIU/mL 02/17/2024 2:02 PM CDT LABORATORY Blood BLOOD SPECIMEN / Unknown Venipuncture / Unknown 02/17/2024 11:05 AM CDT 02/17/2024 11:10 AM CDT Benjamin Moss DO LAB - BLOOD O RDERABLES LABORATORY [facility] Acute [facility] Lab [address] floor, [address] [place] [address], [facility] [phone] * EKG 12-lead, tracing only (02/17/2024 10:49 AM CDT) Systolic Blood Pressure mmHg RADIOLOGY RESULTS Diastolic Blood Pressure mmHg RADIOLOGY RESULTS Ventricular Rate 60 BPM RAD IOLOGY RESULTS Atrial Rate 60 BPM RADIOLOG Y RESULTS NV Interval 158 ms RADIOLOG Y RESULTS QRS Duration 80 ms RADIOLO GY RESULTS QT 430 ms RADIOLOGY RESULTS QTc 430 ms RADIOLOGY RESULTS P [place] 15 degrees RADIOLOGY RESULTS R AXIS -35 degrees RADIOLOGY RESULTS T [place] 52 degrees RADIOLOGY RESULTS Interpretation ECG Sinus rhythm Left axis deviation Abnormal ECG No previous ECGs available RADIOLOGY RESULTS 02/17/2024 10:4 9 AM CDT Sandro Collado MD ECG ORDERABLES RADIOLOGY RESULTS from Last 3 Months Advance Directives For more information, please contact: [phone] * Full Code (Latest Code Status on File) Date Activated Date Inactivated Comments 02/17/2024 3:57 PM 02/18/2024 7:29 PM All basic an d advanced life-sustaining interventions are performed as appropriate Question Answer Comments Code status determined by: Discussion with shilpa nt/ legal decision maker Care Teams Boiler Plant Operator Relationship Specialty Start Date End Date Irma Mandujano MD [address] [place] [address] PCP - General Family Medicine 02/23/24
--- OUTSIDE RECORDS SUMMARY | 2024-04-11 14:21 | XMS_ITS | Encounter Summary ---
Author Organization [facility] Address [address] [place] [address] Care Team Providers Care Coal Shooter Name Role Phone Alli Boss Primary Care Provider [phone] Encounter Details Date Type Department Care Team [...] on filedocumented in this encounter Care Teams Coal Shooter Relationship Specialty Start Date End Date Alli Boss PCP - General 08/23/12 02/22/24 documented as of this encounter
--- OUTSIDE RECORDS SUMMARY | 2024-04-11 14:21 | XMS_ITS | Encounter Summary ---
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 [N13.5] Procedures NH CYSTOSCOPY,INSERT URETERAL STENT NH UROGRAPHY, RETROGRADE W/WO KUB CYSTOSCOPY , RIGHT RETROGRADE PYELOGRAM , POSSIBLE RIGHT STENT EXCHANGE [facility] [address] [place] [address] Referral ID Status Reason Start Date Expiration Date Visits Re quested Visits Authorized [id number] 1 1 Encounter Details Date Type Department Care Team (Late st Contact Info) Description 02/17/2024 10:42 AM CDT Anesthesia Event [facility] Emergency Dept [address] [place] [address] Gaudencio Reynolds MD [facility] [address] [address] Neetu Wakefield, TUBE BENDING MACHINE OPERATOR TEMPER MILL ROLLER [address] [place] [address] Anesthesia Record Procedure Summary Procedure Name Responsible [...] ENTROPION REPAIR; Surgeon: Benjamin Mckeon MD; Location: [facility] Allergies Allergen Reactions Abdon Inhibitors Levsin Metoprolol [...] and realistic alternatives discussed. Questions answered and patient/operations representative(s) expressed understanding. - Discussed: - Discussed [...] on filedocumented in this encounter Care Teams Setter Automatic Spinning Lathe Relationship Specialty Start Date End Date Alli Boss PCP - General 08/23/12 02/22/24 documented as of this encounter
--- OUTSIDE RECORDS SUMMARY | 2024-04-11 14:21 | XMS_ITS | Referral Summary ---
Author Organization [place] Address [address] [place] [address] Care Team Providers Care Promotions Coordinator Name Role Phone Irma Mandujano MD Primary Care Provider [phone] Encounters Date Type Department Care Team Description 03/15/2024 Travel 03/15/2024 12:37 PM CDT - 03/15/2024 11:59 PM CDT Hospital Encounter [facility] Imaging [address] [phone] Stone Sage MD Stricture of ureter Discharge Disposition: Home or Self Care 02/17/2024 10:32 AM CDT - 02/18/2024 5:22 PM CDT Emergency [facility] Extended Recovery and Short Stay [address] [facility] [place] [phone] Sandro Collado MD Steinbrueck, Eric Edward, Essential hypertension (Primary Dx); Hypertensive urgency; Ureteral stent present; Renal insufficiency; Anemia, unspecified type Discharge Disposition: Home or Self Care 02/17/2024 Travel 02/17/2024 10:42 AM CDT Anesthesia Event [facility] Emergency Dept [address] [facility] [place] [phone] Gaudenico Reynolds MD [place], Amanda M, DENTAL TREATMENT COORDINATOR WELT TRIMMING MACHINE OPERATOR 02/17/2024 8:33 AM CDT - 02/17/2024 10:30 AM CDT Hospital Encounter [facility] SD Preop [address] [phone] Stone Sage MD Discharge Disposition: Home with [...] with ureteral stricture, not elsewhere classified 12/24/2023 penitentiary current use of anticoagulant Atrial fibrillation, unspecified type 12/18/2022 Hypertensive kidney disease, stage V 01/05/2022 Aortic valve regurgitation 12/08/2021 Mitral valve regurgitation 12/08/2021 Gastroesophageal reflux disease without esophagi tis 10/24/2021 Chronic fibrosis of lung 10/23/2021 Essential hypertension 07/31/2021 penitentiary (current) use of aspirin 07/31/2021 History of falling 06/17/2020 Hyperlipidemia 11/30/2019 Hypothyroidism 11/23/2019 Lung granuloma 03/01/2019 Overview: CT stable [address] [place] continues to confirm no change 2020 Arthritis of left foot 05/24/2018 Adjustment disorder [...] CDT EXAM: NM RENOGRAM WITH LASIX LOCATION: [facility] DATE: 03/15/2024 INDICATION: ??Stricture of [...] 03/15/2024 EXAM: NM RENOGRAM WITH LASIX LOCATION: [facility] DATE: 03/15/2024 INDICATION: Stricture of [...] 80% of the renalfunction Stone Sage MD [facility] ORDERABLES * (ABNORMAL) UA Macroscopic with reflex to Microscopic and Culture (02/18/2024 11:04 AM CDT) Color Urine Straw Colorless, Straw, Light Yellow, Yellow 02/18/2024 11:33 AM CDT LABORATORY Appearance Urine Clear Clear 05/24/20 24 11:33 AM CDT LABORATORY Glucose Urine Negative Negative mg/dL 02/18/2024 11:33 AM CDT LABORATORY Bilirubin Urine Negative Negative 11:33 AM CDT LABORATORY Ketones Urine Negative Negative mg/dL 02/18/2024 11:33 AM CDT LABORATORY Specific [place] Urine 1.011 1.003 - 1.035 02/18/2024 11:33 [...] NP LAB - URIN E ORDERABLES LABORATORY [facility] [address] 1[address] floor, [address] [place] [address], [facility] [[email or web address]] [phone] * Urine Culture (02/18/2024 11:04 AM CDT) Culture <10,000 CFU/mL Urogenital callie 02/19/2024 9:57 AM CDT [facility] LABORATORY Urine MID-STREAM URINE SPECIMEN / Unknown Non-blood Collection / Unknown 02/18/2024 11:04 AM CDT 02/18/2024 11:33 AM CDT Moy Stewart ELECTRIC MOTOR REPAIR SUPERVISOR LAB - MICR O GENERAL ORDERABLES [facility] LABORATORY [facility] Inf. Diseases Diag. Lab [address] [facility] [place] [address], [facility] [[email or web address]] * ECHO COMPLETE (02/18/2024 10:54 AM CDT) LVEF 60-65% CARDIOLOGY RESULTS Anatomical Region Laterality Modality Echocardiography 02/18/2024 10:0 7 AM CDT Narrative 02/18/2024 3:16 PM CDT [id number]^PAT^MOY^TC [facility] Echocardiography Laboratory [address] [place] [address] Name: SUN ALEMAN : 1940 Study Date: 02/18/2024 10:07 AM Age: 83 yrs Gender: Female Patient Location: [facility] Reason For Study: Hypertension (HTN) Ordering [...] Procedure Note Yajaira Vences MD - 02/18/2024 [id number]^PAT^MOY^TC [facility] Echocardiography Laboratory [address] [place] [address] Name: SUN ALEMAN : 1940 Study Date: 02/18/2024 10:07 AM Age: 83 yrs Gender: Female Patient Location: [facility] Reason For Study: Hypertension (HTN) Ordering [...] (ABNORMAL) Basic metabolic panel (02/18/2024 7:06 AM T) Only the most recent of2 resultswithin the time period is included. [facility] Sodium 139 135 - 145 mmol/L 02/18/2024 7:41 AM [facility] Comment:Reference intervals for this test were updated on 06/22/2023 to more accurately reflect our healthy population. There may be differences in the flagging of prior results with similar values performed with this method. Interpretation of those prior results can be made in the context of the updated reference intervals. Potassium 4.2 3.4 - 5.3 mmol/L 02/18/2024 7:41 AM [facility] Chloride 107 98 - 107 mmol/L 02/18/2024 7:41 AM [facility] Carbon Dioxide (CO2) 22 22 - 29 mmol/L 02/18/2024 7:41 AM [facility] Anion Gap 10 7 - 15 mmol/L 02/18/2024 7:41 AM [facility] Urea Nitrogen 18.2 8.0 - 23.0 mg/dL 02/18/2024 7:41 AM [facility] Creatinine 1.23(H) 0.51 - 0.95 mg/dL 02/18/2024 7:41 AM [facility] GFR Estimate 43(L) >60 mL/min/1. 73m2 02/18/2024 7:41 AM [facility] Calcium 9.1 8.8 - 10.2 mg/dL 02/18/2024 7:41 AM [facility] Glucose 87 70 - 99 mg/dL 02/18/2024 7:41 AM [facility] Blood STRUCTURE OF RIGHT HAND / Unknown Venipuncture / Unknown 02/18/2024 7:06 AM CDT 02/18/2024 7:11 AM CDT Benjamin Proctor Ajay HOPKINS LAB - BLOOD O RDERABLES LABORATORY [facility] [address], [address] [place] [address], [facility] [[email or web address]] [phone] * (ABNORMAL) Troponin T, High Sensitivity (02/18/2024 12:12 AM CDT) Only the most recent of3 resultswithin the time period is included. [facility] Troponin T, High Sensitivity 15(H) <=14 ng/L [...] DO LAB - BLOOD O RDERABLES LABORATORY [facility] [address], [address] [place] [address], [place] [phone] * CT Head w/o Contrast (02/17/2024 4:29 [...] CDT EXAM: CT HEAD W/O CONTRAST LOCATION: [facility] DATE: 02/17/2024 INDICATION: severe headache, [...] 02/17/2024 EXAM: CT HEAD W/O CONTRAST LOCATION: [facility] DATE: 02/17/2024 INDICATION: severe headache, [...] Tube (02/17/2024 11:05 AM CDT) Hold Specimen [facility] 02/17/2024 12:16 PM CDT LABORATORY Blood BLOOD SPECIMEN / Unknown Venipuncture / Unknown 02/17/2024 11:05 AM CDT 02/17/2024 11:10 AM CDT Sandro Collado MD LAB - BLOOD ORD [place] LABORATORY [facility] [address], [address] [place] [address], [facility] [[email or web address]] [phone] * Extra Blue Top Tube (02/17/2024 11:05 AM CDT) [facility] Signature Hold Specimen [facility] 02/17/2024 12:16 PM CDT LABORATORY Blood BLOOD SPECIMEN / Unknown Venipuncture / Unknown 02/17/2024 11:05 AM CDT 02/17/2024 11:10 AM CDT Sandro Collado MD LAB - BLOOD ORD [place] LABORATORY [facility] [address] 1[address], [address] [place] [address], [facility] [[email or web address]] [phone] * (ABNORMAL) CBC with platelets and differential (02/17/2024 11:05 AM CDT) [facility] WBC Count 8.4 4.0 - [...] 31.5 - 36.5 g/dL 02/17/2024 11:14 AM [facility] RDW 15.3(H) 10.0 - 15.0 % 02/17/2024 11:14 AM CDT LABORATORY Platelet Count 329 150 - 450 10e3/uL 02/17/2024 11:14 AM CDT LABORATORY % Neutrophils 44 % 02/17/2024 11:14 AM [facility] % Lymphocytes 44 % 02/17/2024 11:14 AM [facility] % Monocytes 10 % 02/17/2024 11:14 AM [facility] % Eosinophils 1 % 02/17/2024 11:14 AM [facility] % Basophils 1 % 02/17/2024 11:14 AM [facility] % Immature Granulocytes 0 % 02/17/2024 11:14 AM [facility] NRBCs per 100 WBC 0 <1 /100 024 11:14 AM [facility] Absolute Neutrophils 3.7 1.6 - 8.3 10e3/uL 02/17/2024 11:14 AM [facility] Absolute Lymphocytes 3.8 0.8 - 5.3 10e3/uL 02/17/2024 11:14 AM [facility] Absolute Monocytes 0.8 0.0 - 1.3 10e3/uL 02/17/2024 11:14 AM [facility] Absolute Eosinophils 0.1 0.0 - 0.7 10e3/uL 02/17/2024 11:14 AM [facility] Absolute Basophils 0.1 0.0 - 0.2 10e3/uL 02/17/2024 11:14 AM [facility] Absolute Immature Granulocytes 0.0 <=0.4 10e3/uL 02/17/2024 11:14 AM [facility] Absolute NRBCs 0.0 10e3/uL 02/17/2024 11:14 AM [facility] Blood BLOOD SPECIMEN / Unknown Venipuncture / Unknown 02/17/2024 11:05 AM CDT 02/17/2024 11:10 AM CDT Sandro Collado MD LAB - BLOOD ORD ERABLES LABORATORY [facility] [address], [address] [place] [address], [facility] [[email or web address]] [phone] * TSH with free T4 reflex (02/17/2024 11:05 AM CDT) TSH 1.38 0.30 - 4.20 uIU/mL 02/17/2024 2:02 PM CDT LABORATORY Blood BLOOD SPECIMEN / Unknown Venipuncture / Unknown 02/17/2024 11:05 AM CDT 02/17/2024 11:10 AM CDT Benjamin Moss DO LAB - BLOOD O RDERABLES Performing Organization Address City/[facility]/ZIP Co de Phone Number LABORATORY [facility] [address], [address] [place] [address], [facility] [[email or web address]] [phone] * EKG 12-lead, tracing only (02/17/2024 10:49 AM CDT) Systolic Blood Pressure mmHg RADIOLOGY RESULTS Diastolic Blood Pressure mmHg RADIOLOGY RESULTS Ventricular Rate 60 BPM RAD IOLOGY RESULTS Atrial Rate 60 BPM RADIOLOG Y RESULTS OR Interval 158 ms RADIOLOG Y RESULTS QRS Duration 80 ms RADIOLO GY RESULTS QT 430 ms RADIOLOGY RESULTS QTc 430 ms RADIOLOGY RESULTS P [place] 15 degrees RADIOLOGY RESULTS R AXIS -35 degrees RADIOLOGY RESULTS T [place] 52 degrees RADIOLOGY RESULTS Interpretation ECG Sinus rhythm Left axis deviation Abnormal ECG No previous ECGs available RADIOLOGY RESULTS 02/17/2024 10:4 9 AM CDT Sandro Collado MD ECG ORDERABLES Performing Organization Address City/[facility]/ZIP Co de Phone Number RADIOLOGY RESULTS from Last 3 Months Advance Directives For more information, please contact: [phone] * Full Code (Latest Code Status on File) Date Activated Date Inactivated Comments 02/17/2024 3:57 PM 02/18/2024 7:29 PM All basic an d advanced life-sustaining interventions are performed as appropriate Question Answer Comments Code status determined by: Discussion with shilpa reese/ legal decision maker Care Teams Promotions Coordinator Relationship Specialty Start Date End Date Irma Mandujano MD [address] [facility] [place] [address] PCP - General Family Medicine 02/23/24
--- OUTSIDE RECORDS SUMMARY | 2024-04-11 14:21 | XMS_ITS | Encounter Summary ---
Author Organization [place] Address [address] [place] [address] Care Team Providers Care Power Cleaner Operator Name Role Phone Irma Mandujano MD Primary Care Provider [phone] Reason for Referral * Diagnostic Imaging NM (Routine) - Closed Specialty Diagnoses / Procedures Referred By Kayla harris Referred To Contact Radiology. Diagnoses Stricture of ureter Procedures NM Renogram with Stone Nicole MD [facility] [address] [address] Nuclear Medicine [facility] [address] [place] [phone] Referral ID Status Reason Start Date Expiration Date Visits Re quested Visits Authorized [id number] Closed 03/13/2024 03/13/2025 1 1 Reason for Visit * Diagnostic Imaging NM (Routine) - Closed Specialty Diagnoses / Procedures Referred By Kayla harris Referred To Contact Radiology. Diagnoses Stricture of ureter Procedures NM Renogram with Stone Nicole MD [facility] [address] [address] Nuclear Medicine [facility] [address] [place] [phone] Referral ID Status Reason Start Date Expiration Date Visits Re quested Visits Authorized [id number] Closed 03/13/2024 03/13/2025 1 1 Encounter Details Date Type Department Care Team (Latest Contact Info) Description 03/15/2024 12:37 PM CDT - 03/15/2024 11:59 PM CDT Hospital Encounter [facility] Imaging [address] [phone] Stone Sage MD [facility] [address] [address] Stricture of ureter Discharge Disposition: Home or Self Care Social [...] on file documented as of this encounter Medications at Time of Discharge [...] mouth daily documented as of this encounter Plan of Treatment Not on file documented as of this encounter Procedures Procedure Name Priority Date/Time Associated Diagnosis Comments NM RENOGRAM WITH LASIX Routine 03/15/2024 2:14 PM CDT Stricture of ureter documented in this encounter Results * NM Renogram with Lasix (03/15/2024 [...] CDT EXAM: NM RENOGRAM WITH LASIX LOCATION: [facility] DATE: 03/15/2024 INDICATION: ??Stricture of ureter. COMPARISON: [...] 03/15/2024 EXAM: NM RENOGRAM WITH LASIX LOCATION: [facility] DATE: 03/15/2024 INDICATION: Stricture of ureter. COMPARISON: [...] 80% of the renalfunction Stone Sage MD [facility] [place] ORDERABLES documented in this encounter Visit Diagnoses Diagnosis Stricture of ureter Stricture or kinking of ureter documented in this encounter Administered Medications Inactive Administered Medications - up to 3 most recent administrations Medication Order MAR Action Action Date Dose Rate Site furosemide (LASIX) injection 40 mg 40 mg, Intravenous, ONCE, Administer over 1-3 Minutes, On Wed03/15/24 at 1330, For 1 dose $Given 03/15/2024 1:27 PM CDT 40 mg technetium mertiatide Tc99m (MAG3) radioisotope injection 8 millicurie 8 millicurie, Intravenous, ONCE, On Wed03/15/24 at 1300, For 1 dose, Supplied by, and administered by Nuclear Medicine. *HW* $Given 03/15/2024 1:09 PM CDT 8.6 millicuries documented in this encounter Care Teams Power Cleaner Operator Relationship Specialty Start Date End Date Irma Mandujano MD [address] [place] [address] PCP - General Family Medicine 02/23/24 documented as of this encounter
--- OUTSIDE RECORDS SUMMARY | 2024-04-11 14:22 | XMS_ITS | Data Portability ---
Author Organization [place] [facility] [place] [facility] Address [address] [facility] [address] [place] [address] Care Team Providers Care Restaurant Line Server Name Role Phone BRIAN HURD Referring Provider Assessment Encounter Date Assessment Date Assessment LastModified by Organization Details LastModified Time 01/18/2024 01/18/2024 83 Y/O FEMALE, HX OF RT HYDRONEPHROSIS , UTI, EARLY SEPSIS AND PLACEMENT OF A RT URETERAL STENT IN [place]. U/C POS WITH HORTON SENSITIVE ECOLI . NOW BACK TO BASELINE. C.T. 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 REVIEWED EXTENSIVE RECORDS, LABS FROM [place]. PLAN WILL SCHEDULE CYSTO, RT RETROGRADE AND REEVALUATE UPJ AND POSSIBLE STENT EXCHANGE.EVI FRANKLIN EXPLAINED IN DETAIL. ALL QUESTIONS ANSWERED. Not available 01/18/2024 22:00:32 03/28/2024 03/28/2024 83 Y/O FEMALE, HX RT FLANK PAIN, RT HYDRONEPHROSIS , SUSPECTED RT UPJ OBSTRUCTION. MARKED REDUCED RT RENAL FUNCTION. HTN WITH PREVIOUS STENT, HX OF EARLY SEPSIS. REVIEWED OPTIONS- DO NOTHING AND PROTECT FROM UTI'S, TRY AGAIN TO PLACE A STENT WITH CHANGES Q 4 MO , ROBOTIC UPJ REPAIR, RT NEPHRECTOMY . REVIEWED ALL OPTIONS INTERVIEW WITH DAUGHTER PRESENT PLAN SHE WILL REVIEW OPTIONS AND WE WILL TALK NEXT WEEK AND MAKE A DECISION. TIME 1 H. Not available 03/29/2024 12:46:22 Plan of Treatment Reminders Order Date Submit Date Provider Last Modified By Organization Details Last Modified Time Details Appointments None record ed. Lab None record ed. Referral None record ed. Procedures None record ed. Surgeries None record ed. Imaging None record ed. Medication Orders None record ed. Patient TargetsNo targets recorded. Patient InstructionsNo instructions recorded. Reason for Referral None Reported. Results Created Date Observation Date Name Description Value Unit Range Abnormal Flag LastModifiedBy Organization Detail LastModifiedTime 03/15/20 24 03/15/2024 NM, kidne y scan No observ ation record ed. [facility] [address] [place], [address], 03/23/2024 16:15:30 Result Notes None recorded. Problems Name Status Onset Date Resolution Date Notes Provider Name and Address Organization Details Recorded Time Obstruction of pelviureteric junction Active 01/18/20 24 Stone Sage MD [address] [place] [address],[address], [address] , [facility] 01/18/2024 22:00:44 Hydronephrosis Active 03/29/20 24 Stone Sage MD [address] [place] [address],[address], [address] , [facility] 03/29/2024 12:46:39 Essential hypertension Active 03/29/20 24 Stone Sage MD [address] [place] [address],[address], [place], [address] , [facility] 03/29/2024 12:46:47 Problem Notes None recorded. Procedures Surgical History None recorded. Imaging Results Imaging Date Name Status LastModified by Organiz ation Details LastModified Time 03/15/2024 NM, kidney scan completed [facility] [address] [place], [address], 03/23/2024 16:15:30 Procedure Notes None recorded. Medical Equipment None Reported. Allergies No known drug allergies Medications Name Sig Start Date Stop Date Status Note LastModified by Organization Details LastModified Time nebulizer tubing [id number] DIRECTED. REPLACE MASK AND TUBING EVERY 6 MONTHS. 01/17 completed Not Available Not Available Not Available compair xlt compre cmpressr USE DIRECTED 01/17 completed Not Available Not Available Not Available losartan 50 mg tablet TAKE 1 TABLET (50 MG) BY MOUTH TWICE A DAY active Not Available Not Available No t Available cyclobenzap rine 10 mg tablet TAKE 1 TABLET (10 MG) BY MOUTH AT BEDTIME IF NEEDED FOR MUSCLE SPASM. active Not Available Not Available No t Available albuterol sulfate 2.5 mg/3 mL (0.083 %) solution for nebulizatio n INHALE 3 ML (2.5 MG) VIA A NEBULIZER EVERY 4 HOURS IF NEEDED FOR COUGH. 01/17 completed Not Available Not Available Not Available tramadol 50 mg tablet TAKE 1 TABLET (50 MG) BY MOUTH TWO TIMES DAILY. 03/28 completed Not Available Not Available Not Available [...] SIGNS OR SYMTOMS OF URINARY TRACT INFECTION 03/28 completed Not Available Not Available Not Available methylpredn isolone 4 mg tablets in [...] Available Not Available hydrochloro thiazide 12.5 mg tablet 03/28 completed Not Available Not Available Not Available [...] Updated DateTime 01/18/2024 160.02 cm 29.1 kg/m2 24293.15 german Sage MD [address] [place] [address], [phone] [place] [address] Urology 01/18/2024 16:03:19 Date Recorded Body height Body mass index (BMI) Body weight Provider Name and Address Organization Details Last Updated DateTime 03/28/2024 160.02 cm 29.1 kg/m2 94633.15 german Sage MD [address] [place] [address] [phone] [place] [address] Urology 03/28/2024 16:45:08 Social History Question Answer Notes LastModified by Organizat ion Details LastModified Time Tobacco Smoking Status Never Smoker Stone Sage MD [address] [place] [address], [phone] [place] [address] Urology 01/18/2024 16:04:53 What Is Your Level Of Alcohol Consumption? None Information not available 01/18/2024 What Was The Date Of Your Most Recent Tobacco Screening? 03/28/2024 Information not available 03/28/2024 Sex: Unknown Functional Status None recorded. Mental Status None [...] Details Recorded Time pneumococcal polysaccharide PPV23 09/15/2005 renée Sage MD [address] [place] [address],[address], [place], [address], [facility] 01/18/2024 16:03:41 Pneumococcal conjugate PCV 13 04/20/2017 renée Sage MD [address] [place] [address],[address], [place], [address], [facility] 01/18/2024 16:03:41 zoster live 01/26/2008 renée Sage MD [address] [place] [address],[address], [place], [address], [facility] 01/18/2024 16:03:41 Influenza, high-dose, trivalent, PF 06/24/2015 completed Stone Sage MD [address] [place] [address],[address], [place], [address], [facility] 01/18/2024 16:03:41 Influenza, high-dose, trivalent, PF 07/17/2014 renée Sage MD [address] [place] [address],[address], [place], [address], [facility] 01/18/2024 16:03:41 Influenza, split virus, trivalent, preservative 07/25/2013 renée Sage MD [address] [place] [address],[address], [place], [address], [facility] 01/18/2024 16:03:41 Td (adult), 5 Lf tetanus toxoid, preservative free, adsorbed 01/26/2008 renée Sage MD [address] [place] [address],[address], [place], [address], [facility] 01/18/2024 16:03:41 Past Encounters Encounter ID Performer Location Encounter Start Date Encounter Closed Date Diagnosis/Indication Diagnosis SNOMED-CT Code [id number] MD Nori Brown [address] [place] [address] 01/18/2024 15:50:30 01/19/2024 11:20:30 Obstruction of pelviureteric junction [id number] MD Nori Brown [address] [place] [address] 03/28/2024 16:36:27 04/07/2024 11:48:32 Obstruction of pelviureteric junction 75194734 Hydronephrosis 58480867 Essential hypertension [id number] Health Concerns Section Related Observation LastModified by Organization Detai ls LastModified Time None Recorded Concern Status LastModified by Organization Details LastModified Time None Recorded Advance Directives Directive None Recorded Payers Encounter Date Sequence Insurance Name Policy Number Policy Schaffer Covered Member ID Schaffer Member ID Guarantor Name 01/18/2024 1 [place] CO[place] [id number] Sun J MacHacek [id number] Sun J MacHacek 03/28/2024 1 [place] [id number] Sun J MacHacek [id number] Sun J MacHacek Notes Date Note Type Note Provider Name and Address Organization Details Recorded Time 01/18/2024 text/html HPI Notes: 83 YO F HERE FOR HYDRONEPHROSIS FOLLOWUP. WENT INTO ER, FOUND TO HAVE INFECTION AND SEVERE RIGHT HYDRONEPHROSIS. SUSPECTED RT UPJ OBSTRUCTION .STENT PLACED ABOUT 3 WEEKS AGO IN [place]. ECOLI UTI. SPENT 4 DAYS IN THE HOSPITAL..NOW BACK TO BASELINE. NO STENT DISCOMFORT. Stone Sage MD [address] [place] [address],[address], [place], [address], 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 HAD A STENT PLACED IN [place] AND RESPONDED WELL TO ANTIBIOTICS.. HOWEVER, SHE HAD A SIGNIFICANT RISE IN HER BLOOD PRESSURE AND SOME DISCOMFORT. SHE WAS SCHEDULED FOR A RT RETROGRADE FOR BETTER EVALUATION OF HER OBSTRUCTION, BUT HER PROCEDURE WAS CANCELLED BECAUSE OF HER ELEVATED B.P. SHE REQUESTED STENT REMOVAL AND IT WAS DONE IN THE OFFICE. SHE HAS EXPERIENCED SOME INTERMITTENT RT FLANK PAIN, BUT HER B.P. HAS IMPROVED. SHE HAD A RENAL SCAN COMPLETED AND IT SHOWED ONLY 20% RT RENAL FUNCTION WITH SUSPECTED RT UPJ OBSTRUCTION. LEFT NORMAL AND 80% FUNCTION. REVIEWED OPTIONS IN DETAIL. Stone Sage MD [address] [place] [address],[facility] [address], [place], [address], [facility] [place] [facility] 03/29/2024 12:47:05 OBGyn Episode No OBEpisode recorded.
--- OUTSIDE RECORDS SUMMARY | 2024-04-11 14:22 | XMS_ITS | Continuity of Care Document ---
Author Organization [place] [facility] [place] [facility], [facility] Address [address] [place] [address] Care Team Providers Care Jewelry Store Manager Name Role Phone BRIAN HURD Referring Provider Assessment Encounter Date Assessment Date Assessment LastModified by Organization Details LastModified Time 01/18/2024 01/18/2024 83 Y/O FEMALE, HX OF RT HYDRONEPHROSI S, UTI, EARLY SEPSIS AND PLACEMENT OF A RT URETERAL STENT IN [place]. U/C POS WITH HORTON SENSITIVE ECOLI . NOW BACK TO BASELINE. C.T. 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 REVIEWED EXTENSIVE RECORDS, LABS FROM [place]. PLAN WILL SCHEDULE CYSTO, RT RETROGRADE AND [...] y scan No observ ation record ed. [facility] [address] [place], [address], 03/23/2024 16:15:30 Result Notes None recorded. Problems Name Status Onset Date Resolution Date Notes Provider Name and Address Organization Details Recorded Time Obstruction of pelviureteric junction Active 01/18/20 24 Stone Sage MD [address] [facility],[address], [place], [address] , [facility] 01/18/2024 22:00:44 Hydronephrosis Active 03/29/20 24 Stone Sage MD [address] [facility],[address], [place], [address] , [facility] 03/29/2024 12:46:39 Essential hypertension Active 03/29/20 24 Stone Sage MD [address] [facility],[address], [place], [address] , [facility] 03/29/2024 12:46:47 Problem Notes None recorded. Medical Equipment None Reported. Allergies No known drug allergies Medications Name Sig Start Date Stop Date Status Note LastModified by Organization Details LastModified Time compair xlt compre cmpressr USE DIRECTED 01/17 completed Not Available Not Available Not Available nebulizer tubing [id number] DIRECTED. REPLACE MASK AND TUBING EVERY 6 [...] Updated DateTime 01/18/2024 160.02 cm 29.1 kg/m2 77115.15 g Stone Sage MD [address] [facility] [address], [place], [address], [place] [facility] 01/18/2024 16:03:19 Social History Question Answer Notes LastModified by Organizat ion Details LastModified Time Tobacco Smoking Status Never Smoker Stone Sage MD [address] [place] [address],[address], [address], [facility] 01/18/2024 16:04:53 What Is Your [...] GERD/Acid Reflux N Sexually Transmitted Infection N Cancer N High Cholesterol N Diabetes N Bleeding Disorder N Heart Disease N Gynecological HistoryNo gynecological history recorded. Obstetrics History GPAL:G 0 P 0 0 0 0 Immunizations Vaccine Type Date Status Provider Name and Address Organization Details Recorded Time pneumococcal polysaccharide PPV23 09/15/2005 completed Stone Sage MD [address] [place] [address],[address], [address], [facility] 01/18/2024 16:03:41 Pneumococcal conjugate PCV 13 04/20/2017 completed Stone Sage MD [address] [place] [address],[address], [address], [facility] 01/18/2024 16:03:41 zoster live 01/26/2008 completed Stone Sage MD [address] [place] [address],[address], [address], [facility] 01/18/2024 16:03:41 Influenza, high-dose, trivalent, PF 06/24/2015 renée Sage MD [address] [place] [address],[address] [place] [address], [address], [facility] 01/18/2024 16:03:41 Influenza, high-dose, trivalent, PF 07/17/2014 completed Stone Sage MD [address] [place] [address],[address], [place], [address], [facility] 01/18/2024 16:03:41 Influenza, split virus, trivalent, preservative 07/25/2013 renée Sage MD [address] [place] [address],[address] [place] [address], [address], [facility] 01/18/2024 16:03:41 Td (adult), 5 Lf tetanus toxoid, preservative free, adsorbed 01/26/2008 completed Stone Sage MD [address] [place] [address],[address], [place], [address], [facility] 01/18/2024 16:03:41 Past Encounters Encounter ID Performer Location Encounter Start Date Encounter Closed Date Diagnosis/Indication Diagnosis SNOMED-CT Code [id number] Stone Sage MD [facility] [address] [place] [address] 01/18/2024 15:50:30 01/19/2024 11:20:30 Obstruction of pelviureteric junction [id number] Health Concerns Section Related Observation LastModified by Organization Detai ls LastModified Time None Recorded Concern Status LastModified by Organization Details LastModified Time None Recorded Payers Encounter Date Sequence Insurance Name Policy Number Policy Schaffer Covered Member ID Schaffer Member ID Guarantor Name 01/18/2024 1 [place] COST [id number] Sun Medrano [id number] Sun Medrano Notes Date Note Type Note Provider Name and Address Organization Details Recorded Time 01/18/2024 text/html HPI Notes: 83 YO F HERE FOR HYDRONEPHROSIS FOLLOWUP. WENT INTO ER, FOUND TO HAVE INFECTION AND SEVERE RIGHT HYDRONEPHROSIS. SUSPECTED RT UPJ OBSTRUCTION .STENT PLACED ABOUT 3 WEEKS AGO IN [place]. ECOLI UTI. SPENT 4 DAYS IN THE HOSPITAL..NOW BACK TO BASELINE. NO STENT DISCOMFORT. Stone Sage MD [address] [place] [address],[address], [place], [address], [facility] 01/18/2024 22:01:23 OBGyn Episode No OBEpisode recorded.
--- OUTSIDE RECORDS SUMMARY | 2024-04-11 14:22 | XMS_ITS | Continuity of Care Document ---
Author Organization [place] [facility] [place] [facility] Address [address] [facility] [place] [address] Care Team Providers Care Hoop Expander Name Role Phone BRIAN HURD Referring Provider Assessment Encounter Date Assessment Date Assessment LastModified by Organization Details LastModified Time 03/28/2024 03/28/2024 83 Y/O FEMALE, HX RT [...] y scan No observ ation record ed. [facility] [address] [place], [address], 03/23/2024 16:15:30 Result Notes None recorded. Problems Name Status Onset Date Resolution Date Notes Provider Name and Address Organization Details Recorded Time Obstruction of pelviureteric junction Active 01/18/20 24 Stone Sage MD [address] [facility],[address], [place], [address] , [facility] 01/18/2024 22:00:44 Hydronephrosis Active 03/29/20 24 Stone Sage MD [address] [facility],[address], [address] , [facility] 03/29/2024 12:46:39 Essential hypertension Active 03/29/20 24 Stone Sage MD [address] [facility],[address], [address] , [facility] 03/29/2024 12:46:47 Problem Notes None recorded. Medical Equipment None Reported. Allergies No known drug allergies Medications Name Sig Start Date Stop Date Status Note LastModified by Organization Details LastModified Time nebulizer tubing [id number] DIRECTED. REPLACE MASK AND TUBING EVERY 6 [...] Updated DateTime 03/28/2024 160.02 cm 29.1 kg/m2 72052.15 g Stone Sage MD [address] [facility] [address], [place], [address], [place] [facility] 03/28/2024 16:45:08 Social History Question Answer Notes LastModified by Organizat ion Details LastModified Time Tobacco Smoking Status Never Smoker Stone Sage MD [address] [place] [address],[address], [address], [facility] 01/18/2024 16:04:53 What Is Your Level Of Alcohol Consumption? None Information not available 01/18/2024 What Was The Date Of Your Most Recent Tobacco Screening? 03/28/2024 Information not available 03/28/2024 Sex: Unknown Functional Status None recorded. Mental Status None recorded. Family History Nothing Reported. Medical History Condition Response Diabetes N Sexually Transmitted Infection N Other N Bleeding Disorder N High Blood Pressure N Kidney Stones N High Cholesterol N GERD/Acid Reflux N Heart Disease N Cancer N Lung Disease N Depression N Gynecological HistoryNo gynecological history recorded. Obstetrics History GPAL:G 0 P 0 0 0 0 Immunizations Vaccine Type Date Status Provider Name and Address Organization Details Recorded Time pneumococcal polysaccharide PPV23 09/15/2005 completed Stone Sage MD [address] [place] [address],[address], [address], [facility] 01/18/2024 16:03:41 Pneumococcal conjugate PCV 13 04/20/2017 completed Stone Sage MD [address] [place] [address],[address], [address], [facility] 01/18/2024 16:03:41 zoster live 01/26/2008 completed Stone Sage MD [address] [place] [address],[address], [address], [facility] 01/18/2024 16:03:41 Influenza, high-dose, trivalent, PF 06/24/2015 renée Sage MD [address] [place] [address],[address] [place] [address], [address], [facility] 01/18/2024 16:03:41 Influenza, high-dose, trivalent, PF 07/17/2014 completed Stone Sage MD [address] [place] [address],[address], [address], [facility] 01/18/2024 16:03:41 Influenza, split virus, trivalent, preservative 07/25/2013 renée Sage MD [address] [place] [address],[address], [place], [address], [facility] 01/18/2024 16:03:41 Td (adult), 5 Lf tetanus toxoid, preservative free, adsorbed 01/26/2008 completed Stone Sage MD [address] [place] [address],[address], [place], [address], [facility] 01/18/2024 16:03:41 Past Encounters Encounter ID Performer Location Encounter Start Date Encounter Closed Date Diagnosis/Indication Diagnosis SNOMED-CT Code [id number] Stone Sage MD [facility] [address] [place] [address] 03/28/2024 16:36:27 04/07/2024 11:48:32 Obstruction of pelviureteric junction 82257145 Hydronephrosis 47956095 Essential hypertension 96242406 Health Concerns Section Related Observation LastModified by Organization Detai ls LastModified Time None Recorded Concern Status LastModified by Organization Details LastModified Time None Recorded Payers Encounter Date Sequence Insurance Name Policy Number Policy Schaffer Covered Member ID Schaffer Member ID Guarantor Name 03/28/2024 1 [place] COST [id number] Sun Medrano [id number] Sun Medrano Notes Date Note Type Note Provider Name and Address Organization Details Recorded Time 03/28/2024 text/html HPI Notes: 83 YO F HX OF EARLY SEPSIS AND RT HYDRONEPHROSIS, 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 HAD A STENT PLACED IN [place] AND RESPONDED WELL TO ANTIBIOTICS.. HOWEVER, SHE [...] REVIEWED OPTIONS IN DETAIL. Stone Sage MD [address] [place] [address],[address], [place], [address], [facility] 03/29/2024 12:47:05 OBGyn Episode No OBEpisode recorded.
[2024-04-11] MEDS: AMLODIPINE 5 MG TABLET PO (14:27)
[2024-04-11 14:28] LABS: Basophils Absolute Auto 0.04 K/uL (0.00-0.30); Basophils Percent Auto 0.4 % (0.0-3.0); Eosinophils Absolute Auto 0.07 K/uL (0.00-0.50); Eosinophils Percent Auto 0.8 % (0.0-7.0); Hematocrit 32.1 % (33.0-51.0); Hemoglobin* 10.5 gm/dL (12.0-16.0); Immature Granulocytes Abs Auto 0.03 K/uL (0.00-0.30); Immature Granulocytes Pct Auto 0.3 %; Lymphocytes Percent Auto 46.1 % (20-44); Mean Corpuscular HGB Conc 33 gm/dL (32-36); Mean Corpuscular Hemoglobin 29 pg (26-34); Mean Corpuscular Volume 90 fL (80-100); Monocytes Percent Auto 9.7 % (0.0-11.0); Neutrophils Percent Auto 42.7 % (42.0-72.0); Platelet Count* 338 K/uL (140-440); RDW Coefficient of Variation % 14.8 % (11.5-15.5); Red Blood Count 3.58 m/uL (4.00-5.20)
[2024-04-11 14:30] LABS: Slide Review Reflex No
[2024-04-11 14:38] LABS: Chloride* 106 mmol/L (96-114); Potassium* 4.8 mmol/L (3.6-5.1); Sodium* 137 mmol/L (135-149)
[2024-04-11 14:40] LABS: Creatinine* 1.6 mg/dL (0.5-1.5); Est. Creatinine Clearance* 21.65; Estimated Glomerular Filt Rate 32 ml/min
[2024-04-11 14:41] LABS: Anion Gap 10 mEq/L (7-15); Blood Urea Nitrogen* 36 mg/dL (7-30); Carbon Dioxide* 21 mmol/L (20-32); Glucose* 93 mg/dL (60-115)
[2024-04-11 14:42] LABS: Calcium* 9.3 mg/dL (8.4-10.6); Magnesium* 2.3 mg/dL (1.5-2.6)
[2024-04-11 14:44] LABS: C Reactive Protein* < 0.5 mg/dL (0.5-1.0)
--- NOTE | 2024-04-11 15:15 | CRLHL7_ITS ---
For Patients: As a result of the Century Cures Act, medical imaging exams and procedure reports are released immediately into your electronic medical record. You may view this report before your referring provider. If you have questions, please contact your health care provider. INDICATION: comparison imaging, uncontrolled htn. TECHNIQUE: Ultrasound renal and bladder complete. Holloway-scale and color Doppler sonographic images were acquired of the kidneys and urinary bladder. COMPARISON: March 08, 2024 CT of the abdomen and pelvis. FINDINGS: Right kidney: 9.3 x 4.8 x 5.1 cm. Left kidney: 9.3 x 5.2 x 4.6 cm. Normal echotexture and cortex. No suspicious masses, stones. Moderate to severe right-sided hydronephrosis, similar to comparison CT from March 08, 2024. Bladder: Normal in caliber and appearance. Color Doppler images demonstrate left ureteral jet. Right jet is not visualized. IMPRESSION: Moderate to severe right-sided hydronephrosis, similar to CT from March 08, 2024. Dictated by Shanel Wyatt MD @ 04/11/2024 4:50:39 PM (Electronically Signed)
[2024-04-11 15:49] LABS: Appearance Urine Clear (Clear); Bilirubin Urine Negative (Negative); Blood Urine Negative (Negative); Color Urine Yellow (Yellow); Glucose Urine Negative (Negative); Ketones Urine Negative (Negative); Leukocyte Esterase Urine Negative (Negative); Nitrite Urine Negative (Negative); Protein Urine Negative (Negative); Specific Gravity Urine 1.015 (1.000-1.030); Urobilinogen Urine 0.2 (0.2-1.0); pH Urine 6.5 (5.0-8.5)
[2024-04-11 16:33] LABS: Troponin, Point-of-Care* 0.01 ng/ml (0.01-0.04)
[2024-04-12 08:08] LABS: RBC Urine 0-2 (0-2); WBC Urine 0-2 (0-5)
== END 2024-04-11 17:17 | disposition home or self-care (01) ==
PROVIDERS: Emergency Provider Family Medicine; PCP Student in an Organized Health Care Education/Training Program
DX: I16.0 Hypertensive urgency (principal); N18.9 Chronic kidney disease, unspecified
CPT/HCPCS: 36415; 76775; 80048; 81001; 81003; 83735; 83986; 84484; 85025; 86140; 99284; A9270

== ENCOUNTER 2024-05-23 09:05 | Outpatient (CLI) | payer MEDICARE, BC, SELFPAY ==
--- OUTSIDE RECORDS SUMMARY | 2024-05-23 09:09 | XMS_ITS | Encounter Summary ---
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 [address] [address] Neetu Wakefield, GARBAGE TRUCK DISPATCHER SCOURER [address] [place] [address] Anesthesia Record Procedure Summary Procedure [...] ENTROPION REPAIR; Surgeon: Benjamin Mckeon MD; Location: [facility] Allergies Allergen Reactions Abdon Inhibitors Levsin [...] and realistic alternatives discussed. Questions answered and patient/guest relations representative(s) expressed understanding. - Discussed: - Discussed [...] on filedocumented in this encounter Care Teams Welder Journeyman Relationship Specialty Start Date End Date Alli Boss PCP - General 08/23/12 02/22/24 documented as of this encounter
--- OUTSIDE RECORDS SUMMARY | 2024-05-23 09:09 | XMS_ITS | Referral Summary ---
Author Organization [place] Address [address] [place] [address] Care Team Providers Care Tuck Pointer Name Role Phone Irma Mandujano MD Primary Care Provider [phone] Encounters Date Type Department Care Team Description 03/15/2024 Travel 03/15/2024 12:37 PM CDT - 03/15/2024 11:59 PM CDT Hospital Encounter [facility] [address] 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 [place] continues to confirm no change 2019 Arthritis [...] 03/15/2024 2:14 PM CDT Stricture of ureter UA MACROSCOPIC WITH REFLEX TO MICRO AND CULTURE STAT 02/18/2024 11:04 AM CDT BASIC METABOLIC PANEL Routine 02/18/2024 7:06 AM CDT CBC WITH PLATELETS AND DIFFERENTIAL STAT 02/17/2024 11:05 AM CDT TSH WITH FREE T4 REFLEX Add-On 02/17/2024 11:05 AM CDT from Last 3 Months or Most Recently Relevant to Health Maintenance Results * NM Renogram with Lasix (03/15/2024 [...] CDT EXAM: NM RENOGRAM WITH LASIX LOCATION: [facility] DATE: 03/15/2024 INDICATION: ??Stricture of [...] 03/15/2024 EXAM: NM RENOGRAM WITH LASIX LOCATION: [facility] DATE: 03/15/2024 INDICATION: Stricture of [...] 80% of the renalfunction Stone Sage MD [facility] ORDERABLES * (ABNORMAL) UA Macroscopic with reflex [...] mg/dL 02/18/2024 11:33 AM CDT LABORATORY Specific [place] Urine 1.011 1.003 - 1.035 02/18/2024 11:33 [...] 8(H) <=5 /HPF 02/18/2024 11:33 AM CDT SH LABORATORY Squamous Epithelials Urine <1 <=1 /HPF 02/18/2024 11:33 AM CDT LABORATORY Urine MID-STREAM URINE SPECIMEN / Unknown Non-blood Collection / Unknown 02/18/2024 11:04 AM CDT 02/18/2024 11:24 AM CDT Narrative LABORATORY - 02/18/2024 11:33 AM CDT Urine Culture ordered based on laboratory criteria Moy Renteria NP LAB - URIN E ORDERABLES LABORATORY [facility] Lab [address] floor, [address] [place] [address], [facility] [phone] * (ABNORMAL) Basic metabolic panel (02/18/2024 7:06 AM CDT) [facility] Sodium 139 135 - 145 mmol/L 02/18/2024 [...] DO LAB - BLOOD O RDERABLES LABORATORY [facility] [address] floor, [address] [place] [address], [facility] [phone] * (ABNORMAL) CBC with platelets and differential (02/17/2024 11:05 AM CDT) [facility] Signature WBC Count 8.4 4.0 - 11.0 10e3/uL [...] MD LAB - BLOOD ORD ERABLES LABORATORY [facility] [address] 1[address] floor, [address] [place] [address], [facility] [phone] * TSH with free T4 reflex (02/17/2024 11:05 AM CDT) TSH 1.38 0.30 - 4.20 uIU/mL 02/17/2024 2:02 PM CDT LABORATORY Blood BLOOD SPECIMEN / Unknown Venipuncture / Unknown 02/17/2024 11:05 AM CDT 02/17/2024 11:10 AM CDT Benjamin Moss DO LAB - BLOOD O RDERABLES LABORATORY [facility] [address] floor, [address] [place] [address], [facility] [phone] from Last 3 Months or Most Recently Relevant to Health Maintenance Advance Directives For more information, please contact: [phone] * Full Code (Latest Code Status on File) Date Activated Date Inactivated Comments 02/17/2024 3:57 PM 02/18/2024 7:29 PM All basic an d advanced life-sustaining interventions are performed as appropriate Question Answer Comments Code status determined by: Discussion with patiquan nt/ legal decision maker Care Teams Tuck Pointer Relationship Specialty Start Date End Date Irma Mandujano MD [address] [place] [address] PCP - General Family Medicine 02/23/24
--- OUTSIDE RECORDS SUMMARY | 2024-05-23 09:09 | XMS_ITS | Encounter Summary ---
Author Organization [place] Address [address] [place] [address] Care Team Providers Care Utility Worker Production Name Role Phone Irma Mandujano MD Primary Care Provider [phone] Encounter Details Date Type Department Care Team [...] on filedocumented in this encounter Care Teams Utility Worker Production Relationship Specialty Start Date End Date Irma Mandujano MD [address] [facility] [place] [id number] PCP - General Family Medicine 02/23/24 documented as of this encounter
--- OUTSIDE RECORDS SUMMARY | 2024-05-23 09:09 | XMS_ITS | Encounter Summary ---
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 Extended Recovery and Short Stay [address] [place] [address] Sandro Collado MD [facility] [address] [place] [address] Benjamin Moss DO [address] [place] [address] Essential hypertension (Primary Dx); Hypertensive [...] brought down to door 2 by nursing educator. * Moy tSewart NP - 02/18/2024 4:22 PM CDT [facility] Hospitalist Discharge Summary Date of Admission: 02/17/2024 [...] difficulty and was seen for TIA at [facility] where they obtained an MRI and [...] minutes discharging this patient. Moy Stewart NP [facility] EXTENDED RECOVERY AND SHORT STAY [address] [place] [address] Physical Exam Vital Signs: Temp: 97.9 ??F [...] Narrative EXAM: CT HEAD W/O CONTRAST LOCATION: [facility] DATE: 02/17/2024 INDICATION: severe headache, hypertension COMPARISON: [...] above. Echocardiogram Complete Value LVEF 60-65% Narrative [id number]^PAT^MOY^TC [facility] Echocardiography Laboratory [address] [place] [address] Name: SUN ALEMAN : 1940 Study Date: 02/18/2024 10:07 AM Age: 83 yrs Gender: Female Patient Location: [facility] Reason For Study: Hypertension (HTN) Ordering [...] [place] Significant findings include: dry skin [facility] Nurse Consult Ordered? No * [...] Benjamin Moss, - 02/17/2024 1:13 PM CDT [facility] History and Physical - Hospitalist Service Date of Admission: 02/17/2024 Assessment & Plan uSn Aleman is a 83 year old female [...] difficulty and was seen for TIA at [facility] where they obtained an MRI and [...] Anticipated Tomorrow Benjamin Moss DO Hospitalist Service [facility] Securely message with [employer] (more info) Text page via mylearnadfriend Paging/Directory Chief Complaint Elevated blood pressure History [...] She was seen for transient aphasia at [place] [facility] and diagnosed with possible TIA. MRI [...] ENTROPION REPAIR; Surgeon: Benjamin Mckeon MD; Location: [facility] Prior to Admission Medications Prior to [...] Garza RN - 02/17/2024 12:54 PM CDT [facility] ED Nurse Handoff Report ED [...] 10 mg (10 mg Intravenous $Given 02/17/24 3057) Patient's response to treatments and/or interventions: BP 178/64 To be done/followed up on inpatient unit: per MD orders Does this patient have any cognitive concerns?: none Activity level - Baseline/Home: Independent Activity Level - Current: Stand with Assist Patient's Preferred language: Israeli Painter Maintenance Needed?: No Isolation: None Infection: Not Applicable [...] performed were none. ED NURSE PHONE NUMBER: [phone] * Fawad Chapa RN - 02/17/2024 10:21 [...] week, she states she was in the [place] emergency department on several occasions over the past week, once for an episode of speech difficulty that res olved on its own and another for a headache and continued high blood pressures over 200s. She states that she previously had a history of high blood pressure was on 3 medications, though after converting to a plant-based diet in conjunction with her pole peeling machine operator helper, she was able to stop all these medicines, lose 24 pounds, and have blood pressures down into the 130s. She denies any chest pain. No current speech symptoms. She lives with her who has been feeling well. Independent Historian: Daughter at bedside, who expresses concern about recent visits to the [place] emergency department. Review of External Notes: I [...] stricture, not elsewhere classified 12/24/2023 Priority: Medium technician terminal and repeater current use of anticoagulant 12/24/2023 Priority: Medium Atrial fibrillation, unspecified type (H) 12/18/2022 Priority: Medium Hypertensive kidney disease, stage V (H) 01/05/2022 Priority: Medium Aortic valve regurgitation 12/08/2021 Priority: Medium Mitral valve regurgitation 12/08/2021 Priority: Medium Gastroesophageal reflux disease without esophagitis 10/24/2021 Priority: Medium Chronic fibrosis of lung (H) 10/23/2021 Priority: Medium Essential hypertension 07/31/2021 Priority: Medium [facility] (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 [place] continues to confirm no change 2020 Arthritis [...] alert, clear speech, fully oriented, face symmetric, messenger floorperson normal, strength and sensation intact in all extr, no nuchal rigidity, ambulatory without ataxia Psych: cooperative, pleasant Emergency Department Course Electrocardiogram ECG taken at 1049, ECG interpreted at 1140 by Holley Collado MD Sinus rhythm, no ST elevation, artifact present especially in leads V3 and V6 Rate 60 bpm. WY interval 158. QRS duration 80. QTc 430 [...] admitted for high BP in 200s from [facility] today SAFETY RISK Concerns (fall risk, behaviors, etc.): fall risk Isolation/Type: none Tests/Procedures for NEXT shift: labs in am. Cysto was cancelled today Consults? (Pending/following, signed-off?) Urology following outpatient Where is patient from? (Home, TCU, etc.): home Other Important info for NEXT shift: pt sent from [facility] today. Pt came in for cysto and [...] * Pharmacy-Admission Medication History - Mirian Tang [facility] - 02/17/2024 12:53 PM CDT Pharmacist Admission Medication History Admission medication history is complete. The information provided in this note is only as accurateas the sources available at the time of the update. Information Source(s): Patient and CareEverywhere/SureScripts via in-person Pertinent Information: Patient is no longer on Lopressor or Xarelto. Changes made to DEFENCE INTELLIGENCE ANALYST medication list: Added: Blink tears Deleted: Prilosec, ascorbic acid, albuterol neb, Tylenol PM, [place]. Changed: None Allergies reviewed with patient and updates made in EHR: no Medication History Completed By: Miiran Tang RPH 02/17/2024 12:53 PM DEFENCE INTELLIGENCE ANALYST Med List Medication Sig Last Dose levothyroxine [...] MICR O GENERAL ORDERABLES UU IDD LABORATORY [facility] Inf. Diseases Diag. Lab [address] [place] [address], [facility] * (ABNORMAL) UA Macroscopic with reflex to [...] mg/dL 02/18/2024 11:33 AM CDT LABORATORY Specific [place] Urine 1.011 1.003 - 1.035 02/18/2024 11:33 [...] NP LAB - URIN E ORDERABLES LABORATORY [facility] Acute Care Lab [address] floor, [address] [address], [facility] [phone] * ECHO COMPLETE (02/18/2024 10:54 AM CDT) LVEF 60-65% CARDIOLOGY RESULTS Anatomical Region Laterality Modality Echocardiography 02/18/2024 10:0 7 AM CDT Narrative 02/18/2024 3:16 PM CDT [id number]^PAT^MOY^TC [facility] Echocardiography Laboratory [address] [place] [address] Name: SUN ALEMAN : 1940 Study Date: 02/18/2024 10:07 AM Age: 83 yrs Gender: Female Patient Location: [facility] Reason For Study: Hypertension (HTN) Ordering Physician: MOY STEWART Referring Physician: Rahcael Boss Performed By: Howard Ruiz BSA: 1.8 [...] Procedure Note Yajaira Vences MD - 02/18/2024 [id number]^PAT^MOY^TC [facility] Echocardiography Laboratory [address] [place], [place] [address] Name: SUN ALEMAN : 1940 Study Date: 02/18/2024 10:07 AM Age: 83 yrs Gender: Female Patient Location: [facility] Reason For Study: Hypertension (HTN) Ordering [...] Jd Spain 02/18/2024 03:16 PM Moy Stewart ENVELOPE MACHINE ADJUSTER CV ECHO OR DERABLES * (ABNORMAL) Basic metabolic panel (02/18/2024 7:06 AM CDT) Sodium 139 135 - 145 mmol/L 02/18/2024 7:41 AM [facility] LABORAT[facility] Comment:Reference intervals for this test were [...] 70 - 99 mg/dL 02/18/2024 7:41 AM [facility] LABORAT[facility] Blood STRUCTURE OF RIGHT HAND / Unknown Venipuncture / Unknown 02/18/2024 7:06 AM CDT 02/18/2024 7:11 AM CDT Benjamin Moss DO LAB - BLOOD O RDERABLES LABORATORY [facility] [address] floor, [address] [place] [address], [facility] [phone] * (ABNORMAL) Troponin T, High Sensitivity (02/18/2024 [...] DO LAB - BLOOD O RDERABLES LABORATORY [facility] [address] floor, [address] [place] [address], [facility] [phone] * (ABNORMAL) Troponin T, High Sensitivity (02/17/2024 [...] LAB - BLOOD O RDERABLES LABORATORY [facility] Acute Care Lab [address] floor, [address] [place] [address], [facility] [phone] * CT Head w/o Contrast (02/17/2024 4:29 [...] CDT EXAM: CT HEAD W/O CONTRAST LOCATION: [facility] DATE: 02/17/2024 INDICATION: severe headache, hypertension COMPARISON: [...] 02/17/2024 EXAM: CT HEAD W/O CONTRAST LOCATION: [facility] DATE: 02/17/2024 INDICATION: severe headache, hypertension COMPARISON: [...] LAB - BLOOD O RDERABLES LABORATORY [facility] Acute Care Lab [address], [address] [place] [address], [facility] [phone] * (ABNORMAL) Troponin T, High Sensitivity (02/17/2024 [...] Collado MD LAB - BLOOD ORD ERAMELISSA [facility] Lab [address], [place] [address] [address], [facility] [phone] * Extra Red Top Tube (02/17/2024 11:05 AM CDT) Hold Specimen [facility] 02/17/2024 12:16 PM CDT LABORATORY Blood BLOOD SPECIMEN / Unknown Venipuncture / Unknown 02/17/2024 11:05 AM CDT 02/17/2024 11:10 AM CDT Sandro Collado MD LAB - BLOOD ORD ERABLES [facility] Lab [address] floor, [address] [place] [address], [facility] [phone] * Extra Blue Top Tube (02/17/2024 11:05 AM CDT) Hold Specimen [facility] 02/17/2024 12:16 PM CDT LABORATORY Blood BLOOD SPECIMEN / Unknown Venipuncture / Unknown 02/17/2024 11:05 AM CDT 02/17/2024 11:10 AM CDT Sandro Collado MD LAB - BLOOD ORD ERABLES LABORATORY [facility] Acute Care Lab [address] floor, [address] [place] [address], [facility] [phone] * (ABNORMAL) CBC with platelets and differential [...] LAB - BLOOD ORD ERABLES LABORATORY [facility] Acute Care Lab [address] floor, [address] [place] [address], [facility] [phone] * (ABNORMAL) Basic metabolic panel (02/17/2024 11:05 AM CDT) [facility] Sodium 138 135 - 145 mmol/L 02/17/2024 [...] LAB - BLOOD ORD ERABLES LABORATORY [facility] Acute Care Lab [address] floor, [address] [place] [address], [facility] [phone] * EKG 12-lead, tracing only (02/17/2024 10:49 AM CDT) Systolic Blood Pressure mmHg RADIOLOGY RESULTS Diastolic Blood Pressure mmHg RADIOLOGY RESULTS Ventricular Rate 60 BPM RAD IOLOGY RESULTS Atrial Rate 60 BPM RADIOLOG Y RESULTS WY Interval 158 ms RADIOLOG Y RESULTS QRS Duration 80 ms RADIOLO GY RESULTS QT 430 ms RADIOLOGY RESULTS QTc 430 ms RADIOLOGY RESULTS P [place] 15 degrees RADIOLOGY RESULTS R AXIS -35 degrees RADIOLOGY RESULTS T [place] 52 degrees RADIOLOGY RESULTS Interpretation ECG Sinus [...] 4 HOURS PRN, moderate pain, Starting on [facility] 02/17/24 at 1554 $Given 02/17/2024 4:05 [...] 2 TIMES DAILY PRN, constipation, Starting on [facility] 02/17/24 at 1557, IF more than [...] stools. documented in this encounter Care Teams Overcaster Relationship Specialty Start Date End Date Rachael Boss PCP - General 08/23/12 02/22/24 documented as of this encounter
--- OUTSIDE RECORDS SUMMARY | 2024-05-23 09:09 | XMS_ITS | Encounter Summary ---
Author Organization [facility] Address [address] [place] [address] Care Team Providers Care Demonstrator Sewing Techniques Name Role Phone Alli Boss Primary Care Provider [phone] Encounter Details Date Type Department Care Team [...] on filedocumented in this encounter Care Teams Demonstrator Sewing Techniques Relationship Specialty Start Date End Date Alli Boss PCP - General 08/23/12 02/22/24 documented as of this encounter
--- OUTSIDE RECORDS SUMMARY | 2024-05-23 09:09 | XMS_ITS | Clinical Summary ---
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 [place] continues to confirm no change 2019 Arthritis of left foot 05/24/2018 Adjustment disorder with mixed anxiety and depre ssed mood 06/30/2015 Insomnia, unspecified 01/26/2008 Encounters Date Type Department Care Team Description 03/15/2024 12:37 PM CDT - 03/15/2024 11:59 PM CDT Hospital Encounter [facility] [address] [place] [phone] Stone Sage MD Stricture of ureter Discharge Disposition: Home or Self Care 03/15/2024 Travel from Last 3 Months Social History [...] WELLNESS VISIT 01/05/2023 01/05/2022 COVID-19 Vaccine ( - season) 2023 PHQ-2 (once per calendar year) 2023 BMP 05/20/2024 02/18/2024, 02/17/2024 INFLUENZA VACCINE (#1) 2024 6, 06/24/2015, 07/17/2014, Additional history exists HEMOGLOBIN 08/19/2024 [...] CDT EXAM: NM RENOGRAM WITH LASIX LOCATION: [facility] DATE: 03/15/2024 INDICATION: ??Stricture of ureter. COMPARISON: [...] 03/15/2024 EXAM: NM RENOGRAM WITH LASIX LOCATION: [facility] DATE: 03/15/2024 INDICATION: Stricture of ureter. COMPARISON: [...] 80% of the renalfunction Stone Sage MD [facility] [place] ORDERABLES * (ABNORMAL) UA Macroscopic with reflex to Microscopic and Culture (02/18/2024 11:04 AM CDT) Color Urine Straw Colorless, Straw, Light Yellow, Yellow 02/18/2024 11:33 AM T LABORATORY Appearance Urine Clear Clear 02/18/20 11:33 AM CDT LABORATORY Glucose Urine Negative Negative mg/dL 02/18/2024 11:33 AM CDT LABORATORY Bilirubin Urine Negative Negative 11:33 AM CDT LABORATORY Ketones Urine Negative Negative mg/dL 02/18/2024 11:33 AM CDT LABORATORY Specific [place] Urine 1.011 1.003 - 1.035 02/18/2024 11:33 AM T LABORATORY Blood Urine Trace(A) Negative 02/18/2024 11:33 [...] ordered based on laboratory criteria Moy Renteria BUN ICER LAB - URIN E ORDERABLES LABORATORY [facility] Acute Care Lab [address], [address] [place] [address], [facility] [phone] * (ABNORMAL) Basic metabolic panel (02/18/2024 7:06 [...] LAB - BLOOD O RDERABLES LABORATORY [facility] Acute Care Lab [address], [address] [place] [address], [facility] [phone] * (ABNORMAL) CBC with platelets and differential [...] LAB - BLOOD ORD ERABLES LABORATORY [facility] Acute Care Lab [address] floor, [address] [place] [address], [facility] [phone] * TSH with free T4 reflex (02/17/2024 11:05 AM CDT) TSH 1.38 0.30 - 4.20 uIU/mL 02/17/2024 2:02 PM CDT LABORATORY Blood BLOOD SPECIMEN / Unknown Venipuncture / Unknown 02/17/2024 11:05 AM CDT 02/17/2024 11:10 AM CDT Benjamin Moss DO LAB - BLOOD O RDERABLES LABORATORY [facility] [address], [address] [place] [address], [facility] [phone] from Last 3 Months or Most Recently Relevant to Health Maintenance Advance Directives For more information, please contact: [phone] * Full Code (Latest Code Status on File) Date Activated Date Inactivated Comments 02/17/2024 3:57 PM 02/18/2024 7:29 PM All basic an d advanced life-sustaining interventions are performed as appropriate Question Answer Comments Code status determined by: Discussion with shilpa nt/ legal decision maker Care Teams General Adjuster Relationship Specialty Start Date End Date Irma Mandujano MD [address] [facility] [address] PCP - General Family Medicine 02/23/24
--- OUTSIDE RECORDS SUMMARY | 2024-05-23 09:09 | XMS_ITS | Encounter Summary ---
Author Organization [place] Address [address] [place] [address] Care Team Providers Care Director Veterinary Name Role Phone Irma Mandujano MD Primary Care Provider [phone] Reason for Referral * Diagnostic Imaging NM (Routine) - Closed Specialty Diagnoses / Procedures Referred By Kayla harris Referred To Contact Radiology. Diagnoses Stricture of ureter Procedures NM Renogram with Stone Nicole MD [facility] [address] [address] Nuclear Medicine [facility] [place] [phone] Referral ID Status Reason Start Date Expiration Date Visits Re quested Visits Authorized [id number] Closed 03/13/2024 03/13/2025 1 1 Reason for Visit * Diagnostic Imaging NM (Routine) - Closed Specialty Diagnoses / Procedures Referred By Kayla harris Referred To Contact Radiology. Diagnoses Stricture of ureter Procedures NM Renogram with Stone Nicole MD [facility] [address] [address] Nuclear Medicine [facility] [place] [phone] Referral ID Status Reason Start Date Expiration Date Visits Re quested Visits Authorized [id number] Closed 03/13/2024 03/13/2025 1 1 Encounter Details Date Type Department Care Team (Latest Contact Info) Description 03/15/2024 12:37 PM CDT - 03/15/2024 11:59 PM CDT Hospital Encounter [facility] [address] [phone] Stone Sage MD [facility] [address] [address] Stricture of ureter Discharge Disposition: Home or [...] CDT EXAM: NM RENOGRAM WITH LASIX LOCATION: [facility] DATE: 03/15/2024 INDICATION: ??Stricture of ureter. [...] 03/15/2024 EXAM: NM RENOGRAM WITH LASIX LOCATION: [facility] DATE: 03/15/2024 INDICATION: Stricture of ureter. [...] 80% of the renalfunction Stone Sage MD [facility] NM ORDERABLES documented in this encounter Visit [...] millicuries documented in this encounter Care Teams Director Veterinary Relationship Specialty Start Date End Date Irma Mandujano MD [address] [place] [address] PCP - General Family Medicine 02/23/24 documented as of this encounter
--- OUTSIDE RECORDS SUMMARY | 2024-05-23 09:10 | XMS_ITS | Encounter Summary ---
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 [N13.5] Procedures IL CYSTOSCOPY,INSERT URETERAL STENT [place] UROGRAPHY, RETROGRADE W/WO KUB CYSTOSCOPY , RIGHT RETROGRADE PYELOGRAM , POSSIBLE RIGHT STENT EXCHANGE [facility] [address] [place] [phone] Referral ID Status Reason Start Date Expiration Date Visits Re quested Visits Authorized [id number] 1 1 Encounter Details Date Type Department Care Team (Latest Contact Info) Description 02/17/2024 8:33 AM CDT - 02/17/2024 10:30 AM CDT Hospital Encounter [facility] [address] [phone] Stone Sage MD [facility] [address] [id number] Discharge Disposition: Home with Planned Hospital IP [...] RN) documented in this encounter Care Teams Cafeteria Operator Relationship Specialty Start Date End Date Alli Boss PCP - General 08/23/12 02/22/24 documented as of this encounter
== END 2024-05-23 09:06 | disposition home or self-care (01) ==
LOC: INJ CL 09:07
PROVIDERS: PCP Student in an Organized Health Care Education/Training Program; Visit Provider Family Medicine
DX: M54.16 Radiculopathy, lumbar region (principal); M51.36 Other intervertebral disc degeneration, lumbar region
CPT/HCPCS: 64483; J1100; Q9966

== ENCOUNTER 2024-06-10 09:56 | Emergency (ER) | payer MEDICARE, BC, SELFPAY ==
[2024-06-10 09:58] VITALS: BP 186/70; PULSE 64; RESP 16; TEMP 36.2; O2SAT 98; BMI 29.3
[2024-06-10 10:20] LABS: Appearance Urine Clear (Clear); Bilirubin Urine Negative (Negative); Blood Urine Negative (Negative); Color Urine Yellow (Yellow); Glucose Urine Negative (Negative); Ketones Urine Negative (Negative); Leukocyte Esterase Urine 1+ (Negative); Nitrite Urine Negative (Negative); Protein Urine Negative (Negative); Urobilinogen Urine 0.2 (0.2-1.0)
--- NOTE | 2024-06-10 10:27 | CRLHL7_ITS ---
For Patients: As a result of the 21st Century Cures Act, medical imaging exams and procedure reports are released immediately into your electronic medical record. You may view this report before your referring provider. If you have questions, please contact your health care provider. INDICATION: HX OBSTRUCTIVE UROPATHY, R URETERAL STENT, R FLANK/ABD PAIN. (Sic) COMPARISON: 03/08/2024 TECHNIQUE: CT of the abdomen and pelvis without intravenous contrast. Please note that all CT scans at this facility use dose modulation, iterative reconstruction, and/or weight-based dosing when appropriate to reduce radiation dose to as low as reasonably achievable. FINDINGS: The study is performed without intravenous contrast. This limits the sensitivity of the exam for the detection bowel pathology, focal lesions of the abdominopelvic viscera and vascular pathology including significant vascular stenosis, occlusion and dissection. ABDOMEN Liver: Normal hepatic attenuation. No suspicious focal hepatic lesion. No intrahepatic biliary ductal dilatation. Gallbladder: Cholecystectomy. Normal common duct caliber. Pancreas: Normal pancreatic attenuation. No focal lesion. Normal duct caliber. No peripancreatic inflammatory changes. Spleen: Normal splenic attenuation. No suspicious focal lesion. Adrenal Glands: Symmetrical adrenal glands. No focal lesion of significance. Kidneys: Compared to 03/08/2024 there is new extensive right perinephric fat stranding with thickening of the bridging perinephric septa, thickening of the anterior and posterior renal fascia and combined retroperitoneum interfascial plane below the level of the right kidney. These findings are associated with progressive dilatation of the right pelvicaliceal collecting system with a transition point at the right ureteropelvic junction. No obstructing nephrolith or dilatation of the upper urinary tracts. Gastrointestinal tract: Note is again made of a large 2nd duodenal segment diverticulum. Extensive diverticulosis of the descending and sigmoid colon without associated inflammatory changes. Normal mesentery. Unidentified appendix. No sign of acute appendicitis. Vascular: Normal outer wall to outer wall abdominal aortic caliber. Patency and luminal caliber of the abdominopelvic arterial and venous vasculature cannot be assessed on this noncontrast study. Additional findings: No incidental adenopathy. No significant ascites, free fluid or pneumoperitoneum. PELVIS No bladder lesion is identified. No significant incidental findings related to the uterus and uterine adnexae. No abnormal free fluid. No incidental adenopathy. SKELETON AND BODY WALL No acute or suspicious incidental findings. Stable incidental mixed sclerosis and lucency of the proximal right femur which has the appearance of possible explantation of orthopedic hardware. Please correlate with the patient`s surgical history. No significant interval change. These findings are not considered clinically significant in the acute setting. Moderate disc degeneration at L5-S1. LOWER THORAX Moderate right coronary atherosclerotic calcifications. Small sliding hiatus hernia. IMPRESSION: Progressive dilatation of the right renal pelvicalyceal collecting system with a transition point at the ureteropelvic junction associated with marked thickening of the bridging perinephric septa in the right perinephric space and thickening of the renal fascia. The latter features are new compared to the prior study and may indicate rupture of the dilated right intrarenal collecting system. Please note that all CT scans at this facility use dose modulation, iterative reconstruction, and/or weight-based dosing when appropriate to reduce radiation dose to as low as reasonably achievable. Dictated by Gaudencio Singletary MD @ 06/10/2024 11:08:24 AM (Electronically Signed)
[2024-06-10 10:38] LABS: Bacteria Urine Moderate; RBC Urine 0-2 (0-2); Squamous Epithelial Cell Urine Few (None-Few); WBC Urine 25-50 (0-5)
[2024-06-10 10:42] LABS: Lactate Sepsis w/Reflex* 0.9 mmol/L (0.5-1.9)
[2024-06-10] MEDS: 0.9 % SODIUM CHLORIDE 500 ML 500 ML IV (10:45)
[2024-06-10] MEDS: MORPHINE 4 MG/ML INJ IVP (10:45)
[2024-06-10] MEDS: ONDANSETRON 2 MG/ML inj 4 MG IVP (10:45)
[2024-06-10 10:47] LABS: Basophils Percent Auto 0.3 % (0.0-3.0); Eosinophils Percent Auto 0.1 % (0.0-7.0); Hemoglobin* 10.5 gm/dL (12.0-16.0); Immature Granulocytes Pct Auto 0.2 %; Lymphocytes Percent Auto 9.4 % (20-44); Mean Corpuscular HGB Conc 32 gm/dL (32-36); Mean Corpuscular Hemoglobin 30 pg (26-34); Mean Corpuscular Volume 94 fL (80-100); Monocytes Percent Auto 6.6 % (0.0-11.0); Neutrophils Percent Auto 83.4 % (42.0-72.0); Platelet Count* 356 K/uL (140-440); RDW Coefficient of Variation % 15.4 % (11.5-15.5); Red Blood Count 3.53 m/uL (4.00-5.20); White Blood Count* 15.61 K/uL (4.50-11.00)
[2024-06-10 10:49] LABS: Slide Review Reflex No
--- NOTE | 2024-06-10 10:53 | ED_ITS ---
HPI - General Adult General Date Seen: 06/10/24 Chief complaint: Flank Pain Stated complaint: Right side pain, kidney infection Time Seen by Provider: 06/10/24 10:14 Source: patient, RN notes reviewed and old records reviewed Mode of arrival: ambulatory Limitations: no limitations History of Present Illness HPI narrative: Patient is an 84-year-old woman here for evaluation of right flank pain which radiates to the abdomen, she says it is kind of her entire abdomen at this point although yesterday was just more on the right. She says it feels reminiscent of when she had a renal stent placed last year, she tells me that this was in the setting of urinary tract infection, she did not have a kidney stone. She says she had the stent placed and it was in place for about 10 weeks, apparently removal was delayed a couple of times because she was significantly hypertensive at the time. She says her blood pressure improved once the stent was removed, and she self discontinued both her amlodipine as well as her hydrochlorothiazide, she thought that both were contributing to swelling in her feet. She says her blood pressure has been reasonably well controlled, running in the 140s at home. She has had some chills, she does not believe she has had a fever however. She has had some nausea and vomiting as well. She tried taking oxycodone last night and says it did not really help her pain at all which has been fairly severe. She has had some urgency and frequency, denies dysuria or hematuria. She lives independently. She is status post appendectomy, cholecystectomy and tubal ligation. She does not smoke or drink. Related Data Home Medications ?Medication ?Instructions ?Recorded ?Confirmed levothyroxine 88 mcg tablet 88 mcg PO DAILY 01/07/23 06/10/24 (Synthroid) losartan 25 mg tablet 50 mg PO DAILY 01/07/23 06/10/24 albuterol sulfate 2.5 mg/3 mL 2.5 mg continuous nebulization Q4H 01/14/23 06/02/23 (0.083 %) solution for nebulization PRN cough aspirin 81 mg tablet,delayed 81 mg PO DAILY 02/14/24 04/11/24 release (Adult Aspirin Regimen) Allergies Allergy/AdvReac Type Severity Reaction Status Date / Time WILLIAM Inhibitors Allergy Mild Hives Verified 05/23/24 09:46 hyoscyamine [From Levsin] Allergy Mild Hives Verified 05/23/24 09:46 apixaban [From Eliquis] AdvReac Intermediate Diarrhea Verified 05/23/24 09:46 lisinopril AdvReac Mild Cough Verified 05/23/24 09:46 metoprolol AdvReac Mild Cough Verified 05/23/24 09:46 Review of Systems Status of ROS: Reports: 10 or more systems reviewed and unremarkable except as noted in History and below PFSH PFS Medical History Vitamin D deficiency ?E55.9 - Vitamin D deficiency, unspecified (ICD-10) Osteopenia ?M85.80 - Other specified disorders of bone density and structure, unspecified site (ICD-10) 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 - Migraine with aura, not intractable, without status migrainosus (ICD-10) Intestinal infection due to campylobacter ?A04.5 - Campylobacter enteritis (ICD-10) Hypothyroidism ?E03.9 - Hypothyroidism, unspecified (ICD-10) Hypertension ?I10 - Essential (primary) hypertension (ICD-10) Hyperlipidemia ?E78.5 - Hyperlipidemia, unspecified (ICD-10) Hiatal hernia ?K44.9 - Diaphragmatic hernia without obstruction or gangrene (ICD-10) Esophageal reflux ?K21.9 - Gastro-esophageal reflux disease without esophagitis (ICD-10) Edema ?R60.9 - Edema, unspecified (ICD-10) Duodenal ulcer, unspecified as acute or chronic, without hemorrhage or perforation ?K26.9 - Duodenal ulcer, unspecified as acute or chronic, without hemorrhage or perforation (ICD-10) Chest pain ?R07.9 - Chest pain, unspecified (ICD-10) Anticoagulation monitoring, INR range 2-3 ?Z79.01 - intermediate frame tender (current) use of anticoagulants (ICD-10) Surgical History History of eye surgery ?Z98.890 - Other specified postprocedural states (ICD-10) History of lumbar discectomy ?Z98.890 - Other specified postprocedural states (ICD-10) History of cholecystectomy ?Z90.49 - Acquired absence of other specified parts of digestive tract (ICD- 10) History of knee replacement ?Z96.659 - Presence of unspecified artificial knee joint (ICD-10) History of surgery on lower extremity ?Z98.890 - Other specified postprocedural states (ICD-10) History of surgery on lower extremity ?Z98.890 - Other specified postprocedural states (ICD-10) History of esophagogastroduodenoscopy (EGD) ?Z98.890 - Other specified postprocedural states (ICD-10) S/P epidural steroid injection ?Z92.241 - Personal history of systemic steroid therapy (ICD-10) History of colonoscopy ?Z98.890 - Other specified postprocedural states (ICD-10) History of cataract removal with insertion of prosthetic lens ?Z98.49 - Cataract extraction status, unspecified eye (ICD-10) ?Z96.1 - Presence of intraocular lens (ICD-10) History of breast augmentation ?Z98.82 - Breast implant status (ICD-10) History of appendectomy ?Z90.49 - Acquired absence of other specified parts of digestive tract (ICD- 10) Social History Smoking Status: Never smoker Do you use any of these nicotine containing products: None Second hand tobacco smoke exposure: No How often do you have a drink containing alcohol: never How often do you have six or more drinks on one occasion: Never AUDIT-C Alcohol total score: 0 Non-prescribed substance use: denies use service: No Exam Narrative: Exam Narrative: Vital signs as noted above. In general, an alert, well-appearing patient. Head: Normocephalic, atraumatic. Eyes: Pupils are equal reactive. Extraocular movements are full. Conjunctivae are normal. ENT: Mucous membranes are moist. Throat is normal. Neck: Supple without lymphadenopathy. Heart: Regular rate and rhythm. No murmur or rub. Lungs: Clear bilaterally. No increased work of breathing, crackles or wheezes. Abdomen: Soft and nondistended. Mild diffuse tenderness without rebound guarding or rigidity. Positive CVA tenderness on the right. Extremities: Well perfused. No edema. No calf tenderness. Pulses intact. Neurologic: Patient is alert and oriented to person and place. Speech is fluent. Face is symmetric. Moves all extremities equally. Affect: Normal. Skin: Warm and dry. Well perfused. Const: Vital Signs, click to edit/add: Vital Signs - 24 hr 06/10/24 09:58 06/10/24 11:25 06/10/24 14:23 Temperature 97.1 F L 97.9 F Pulse Rate [Pulse Oximeter] 64 58 L 64 Respiratory Rate 16 16 16 Blood Pressure [Ri ght Upper Arm] 186/70 H 178/64 H 158/83 H Pulse Oximetry 98 99 100 Oxygen Delivery Me thod Room Air Room Air Room Air Documenting provider has reviewed patient's vital signs: yes Course Course ED Course: IV placed, labs drawn. Will give her some morphine and Zofran for symptomatic control. Diagnostic considerations would include renal pathology such as kidney stone, pyelonephritis, obstructive uropathy, UTI, also consider other diagnoses such as bowel obstruction, pancreatitis, diverticulitis, colitis, among others. Thus far labs show an elevated white blood cell count of 15.6. Hemoglobin is 10.5 which is at her baseline. 84% neutrophils. Lactate was normal at 0.9. Ur inalysis showed 25-50 white blood cells, 0-2 red cells and moderate bacteria. Other labs are pending at this time. CT scan by my review shows perinephric stranding and marked hydronephrosis on the right. Final radiology read as follows:FINDINGS: The study is performed without intravenous contrast. This limits the sensitivity of the exam for the detection bowel pathology, focal lesions of the ab dominopelvic viscera and vascular pathology including significant vascular stenosis, occlusion and dissection. ABDOMEN Liver: Normal hepatic attenuation. No suspicious focal hepatic lesion. No intra hepatic biliary ductal dilatation. Gallbladder: Cholecystectomy. Normal common duct caliber. Pancreas: Normal pancreatic attenuation. No focal lesion. Normal duct caliber. No peripancreatic inflammatory changes. Spleen: Normal splenic attenuation. No suspicious focal lesion. Adrenal Glands: Symmetrical adrenal glands. No focal lesion of significance. Kidneys: Compared to 03/08/2024 there is new extensive right perinephric fat stranding with thickening of the bridging perinephric septa, thickening of the anterior and posterior renal fascia and combined retroperitoneum interfascial plane below the level of the right kidney. These findings are associated with progressive dilatation of the right pelvicaliceal collecting system with a transition point at the right ureteropelvic junction. No obstructing nephrolith or dilatation of the upper urinary tracts. Gastrointestinal tract: Note is again made of a large 2nd duodenal segment diverticulum. Extensive diverticulosis of the descending and sigmoid colon without associated inflammatory changes. Normal mesentery. Unidentified appendix. No sign of acute appendicitis. Vascular: Normal outer wall to outer wall abdominal aortic caliber. Patency and luminal caliber of the abdominopelvic arterial and venous vasculature cannot be assessed on this noncontrast study. Additional findings: No incidental adenopathy. No significant ascites, free fluid or pneumoperitoneum. PELVIS No bladder lesion is identified. No significant incidental findings related to the uterus and uterine adnexae. No abnormal free fluid. No incidental adenopath y. SKELETON AND BODY WALL No acute or suspicious incidental findings. Stable incidental mixed sclerosis and lucency of the proximal right femur which has the appearance of possible explantation of orthopedic hardware. Please correlate with the patient`s surgical history. No significant interval change. These findings are not considered clinically significant in the acute setting. Moderate disc d egeneration at L5-S1. LOWER THORAX Moderate right coronary atherosclerotic calcifications. Small sliding hiatus hernia. IMPRESSION: Progressive dilatation of the right renal pelvicalyceal collecting system with a transition point at the ureteropelvic junction associated with marked thickening of the bridging perinephric septa in the right perinephric space and thickening of the renal fascia. The latter features are new compared to the prior study and may indicate rupture of the dilated right intrarenal collecting system. I ordered blood cultures, then gave Rocephin 1 g IV. She has remained hemodynamically stable and is feeling more comfortable after morphine. Pain is controlled. I consulted with Dr. Trujillo, on-call for Urology with [facility]. He recommended transfer for stent placement, but [place] did not have available beds. As result, we do have acceptance at [facility]. Significant delay for EMS transport, patient remained stable and comfortable, discharged via EMS ground at 5:30 pm. Vital Signs Vital signs: Initial Vital Signs Temperature 97.1 F L 06/10/24 09:58 Temperature Source Temporal Artery Scan 06/10/24 09:58 Pulse Rate 64 06/10/24 09:58 Respiratory Rate 16 06/10/24 09:58 Blood Pressure 186/70 H 06/10/24 09:58 Blood Pressure Mean 108 H 06/10/24 09:58 Blood Pressure Position Sitting 06/10/24 09:58 Pulse Oximetry 98 06/10/24 09:58 Oxygen Delivery Method Room Air 06/10/24 09:58 Vital Signs Temperature 97.1 F L 06/10/24 09:58 Pulse Rate 64 06/10/24 09:58 Respiratory Rate 16 06/10/24 09:58 Blood Pressure 186/70 H 06/10/24 09:58 Pulse Oximetry 98 06/10/24 09:58 Oxygen Delivery Method Room Air 06/10/24 09:58 Temperature 97.9 F 06/10/24 14:23 Pulse Rate 64 06/10/24 14:23 Respiratory Rate 16 06/10/24 14:23 Blood Pressure 158/83 H 06/10/24 14:23 Pulse Oximetry 100 06/10/24 14:23 Oxygen Delivery Method Room Air 06/10/24 14:23 Medications Administered Medications: Discontinued Medications Generic Name Dose Route Start Last Admin Trade Name Freq PRN Reason Stop Dose Admin Sodium Chloride 500 mls @ 500 mls/hr 06/10/24 10:27 06/10/24 12:17 0.9 % Sodium Chloride 500 Ml IV 06/10/24 11:26 Infused .Q1H ONE Infusion Ceftriaxone Sodium 1 gm/ 100 mls @ 200 mls/hr 06/10/24 10:51 06/10/24 11:48 Sodium Chloride IVPB 06/10/24 10:52 Infused ONCE ONE Infusion Morphine Sulfate 4 mg 06/10/24 10:27 06/10/24 10:45 Morphine 4 Mg/Ml Inj IVP 06/10/24 10:28 4 mg ONCE ONE Administration Ondansetron HCl 4 mg 06/10/24 10:27 06/10/24 10:45 Ondansetron 2 Mg/Ml Inj IVP 06/10/24 10:28 4 mg ONCE ONE Administration Medical Decision Making Lab Data Labs: Lab Results 06/10/24 06/10/24 Range/Units 10:35 Unknown WBC 15.61 H (4.50-11.00) K/uL RBC 3.53 L (4.00-5.20) m/uL Hgb 10.5 L (12.0-16.0) gm/dL Hct 33.0 (33.0-51.0) % MCV 94 (80-100) fL MCH 30 (26-34) pg MCHC 32 (32-36) gm/dL RDW Coeff of Albert 15.4 (11.5-15.5) % Plt Count 356 (140-440) K/uL Neut % (Auto) 83.4 H (42.0-72.0) % Lymph % (Auto) 9.4 L (20-44) % [place] % (Auto) 6.6 (0.0-11.0) % Eos % (Auto) 0.1 (0.0-7.0) % Baso % (Auto) 0.3 (0.0-3.0) % Neut # (Auto) 13.00 H (1.7-7.0) K/uL Lymph # (Auto) 1.50 (0.90-2.90) K/uL [place] # (Auto) 1.00 H (0.00-0.90) K/UL Eos # (Auto) 0.00 (0.00-0.50) K/uL Baso # (Auto) 0.00 (0.00-0.30) K/uL Abs Immat Gran (auto) 0.00 (0.00-0.30) K/uL Imm/Tot Granulo (auto) 0.2 % Sodium 137 (135-149) mmol/L Potassium 4.4 (3.6-5.1) mmol/L Chloride 104 (96-114) mmol/L Carbon Dioxide 24 (20-32) mmol/L Anion Gap 9 (7-15) mEq/L BUN 29 (7-30) mg/dL Creatinine 1.6 H (0.5-1.5) mg/dL Estimated Creat Clear 20.70 Estimated GFR 32 ml/min Glucose 124 H (60-115) mg/dL Lactate 0.9 (0.5-1.9) mmol/L Calcium 9.1 (8.4-10.6) mg/dL Total Bilirubin 0.7 (0.1-1.5) mg/dL Direct Bilirubin 0.3 (0.0-0.5) mg/dL AST 25 (12-35) U/L ALT 13 (4-35) U/L Alkaline Phosphatase 137 (40-150) U/L C-Reactive Protein < 0.5 L (0.5-1.0) mg/dL Total Protein 7.0 (6.0-8.3) g/dL Albumin 3.9 (3.3-5.0) g/dL Lipase 57 (23-300) U/L Urine Color Yellow (Yellow) Urine Appearance Clear (Clear) Urine pH 7.0 (5.0-8.5) Ur Specific [place] 1.020 (1.000-1.030) Urine Protein Negative (Negative) Urine Glucose (UA) Negative (Negative) Urine Ketones Negative (Negative) Urine Blood Negative (Negative) Urine Nitrite Negative (Negative) Urine Bilirubin Negative (Negative) Urine Urobilinogen 0.2 (0.2-1.0) Ur Leukocyte Esterase 1+ A (Negative) Urine RBC 0-2 (0-2) Urine WBC 25-50 A (0-5) Ur Squamous Epith Cells Few (None-Few) Urine Bacteria Moderate A (None) Discharge Plan Discharge Clinical Impression: Acute unilateral obstructive uropathy, Acute UTI Patient Disposition: Xfer Other Discharge Location: [facility] Condition: Improved Prescriptions: No Action albuterol sulfate 2.5 mg /3 mL (0.083 %) solution for nebulization 2.5 mg continuous nebulization Q4H PRN (Reason: cough) levothyroxine [Synthroid] 88 mcg tablet 88 mcg PO DAILY losartan 25 mg tablet 50 mg PO DAILY aspirin [Adult Aspirin Regimen] 81 mg tablet,delayed release (DR/EC) 81 mg PO DAILY Stand Alone Forms: [employer] Info Instructions
--- OUTSIDE RECORDS SUMMARY | 2024-06-10 10:57 | XMS_ITS | Data Portability ---
Author Organization [place] [facility] [place] [facility] Address [address] [place] [address] Care Team Providers Care Lightout Examiner Name Role Phone BRIAN HURD Referring Provider [phone] Assessment Encounter Date Assessment Date Assessment LastModified [...] Name Description Value Unit Range Abnormal Flag Note LastModifiedBy Organization Detail LastModifiedTime 03/15/20 24 03/15/2024 NM, kidne y scan No observ ation record ed. [facility]iology [address] [place], [address], 03/23/2024 16:15:30 Result Notes None recorded. 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 Procedures Surgical History None recorded. Imaging Results Imaging Date Name Status LastModified by Organiz ation Details LastModified Time 03/15/2024 NM, kidney scan completed [facility]iology [address] [place], [address], 03/23/2024 16:15:30 Procedure Notes None recorded. Medical Equipment None Reported. Allergies No known drug allergies Medications Name Sig Start Date Stop Date Status Note LastModified by Organization Details LastModified Time nebulizer tubing [id number] DIRECTED. REPLACE MASK AND TUBING EVERY 6 [...] Updated DateTime 01/18/2024 160.02 cm 29.1 kg/m2 86752.15 g Stone Sage MD [address] [place] [address],[address], [address] [place] [address] Urolog 01/18/2024 16:03:19 Date Recorded Body height Body mass index (BMI) Body weight Provider Name and Address Organization Details Last Updated DateTime 03/28/2024 160.02 cm 29.1 kg/m2 91502.15 german Sage MD [address] [place] [address] Urology 03/28/2024 16:45:08 Social History Question Answer Notes LastModified by Organizat ion Details LastModified Time Tobacco Smoking Status Never Smoker Stone Sage MD [address] [place] [address],[address], [address] [place] [address] Urology 01/18/2024 16:04:53 What Is Your Level [...] polysaccharide PPV23 09/15/2005 completed Stone Sage MD [address] [place] [address],[address], [address], [facility] 01/18/2024 16:03:41 Pneumococcal conjugate PCV 13 04/20/2017 completed Stone Sage MD [address] [place] [address],[address], [address], [facility] 01/18/2024 16:03:41 zoster live 01/26/2008 completed Stone Sage MD [address] [place] [address],[address], [address], [facility] 01/18/2024 16:03:41 Influenza, high-dose, trivalent, PF 06/24/2015 completed Stone Sage MD [address] [place] [address],[address], [address], [facility] 01/18/2024 16:03:41 Influenza, high-dose, trivalent, PF 07/17/2014 completed Stone Sage MD [address] [place] [address],[address], [address], [facility] 01/18/2024 16:03:41 Influenza, split virus, trivalent, preservative 07/25/2013 completed Stone Sage MD [address] [place] [address],[address], [address], [facility] 01/18/2024 16:03:41 Td (adult), 5 Lf tetanus toxoid, preservative free, adsorbed 01/26/2008 renée Sage MD [address] [place] [address],[address], [address], [facility] 01/18/2024 16:03:41 Past Encounters Encounter ID Performer Location Encounter Start Date Encounter Closed Date Diagnosis/Indication Diagnosis SNOMED-CT Code Diagnosis ICD10 Code [id number] Stone Sage MD [facility] [address] [address] 01/18/2024 15:50:30 01/19/2024 11:20:30 Obstruction of pelviureteric junction 50908768 N13.5 [id number] Stone Sage MD [facility] [address] [address] 03/28/2024 16:36:27 04/07/2024 11:48:32 Obstruction of pelviureteric junction 13544519 N13.5 Hydronephrosis 67718620 N13.30 Essential hypertension 36173238 I10 Health Concerns Section Related Observation LastModified by Organization Detai ls LastModified Time None Recorded Concern Status LastModified by Organization Details LastModified Time None Recorded Advance Directives Directive None Recorded Payers Encounter Date Sequence Insurance Name Policy Number Policy Schaffer Covered Member ID Schaffer Member ID Guarantor Name 01/18/2024 1 [facility] [id number] Sun J MacHacek [id number] Sun J MacHacek 03/28/2024 1 [place] [id number] Sun J MacHacek [id number] Sun J MacHacek Notes Date Note Type [...] NO STENT DISCOMFORT. 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 HAD A STENT PLACED IN [place] AND RESPONDED WELL TO ANTIBIOTICS.. HOWEVER, SHE [...] REVIEWED OPTIONS IN DETAIL. Stone Sage MD [address], [place], [address], [facility] 03/29/2024 12:47:05 OBGyn Episode No OBEpisode recorded.
--- OUTSIDE RECORDS SUMMARY | 2024-06-10 10:57 | XMS_ITS | Referral Summary ---
Author Organization [place] Address [address] [place] [address] Care Team Providers Care Chain Forming Machine Operator Name Role Phone Irma Mandujano MD Primary Care Provider [phone] Encounters Date Type Department Care Team Description 03/15/2024 Travel 03/15/2024 12:37 PM CDT - 03/15/2024 11:59 PM CDT Hospital Encounter [facility] Imaging [address] [place] [address] Stone Sage MD Stricture of ureter [...] with ureteral stricture, not elsewhere classified 12/24/2023 senior living current use of anticoagulant Atrial fibrillation, unspecified type 12/18/2022 Hypertensive kidney disease, stage V 01/05/2022 Aortic valve regurgitation 12/08/2021 Mitral valve regurgitation 12/08/2021 Gastroesophageal reflux disease without esophagi tis 10/24/2021 Chronic fibrosis of lung 10/23/2021 Essential hypertension 07/31/2021 senior living (current) use of aspirin 07/31/2021 History of falling 06/17/2020 Hyperlipidemia 11/30/2019 Hypothyroidism 11/23/2019 Lung granuloma 03/01/2019 Overview: CT stable [address] [place] continues to confirm no change 2019 Arthritis [...] CDT EXAM: NM RENOGRAM WITH LASIX LOCATION: [facility] DATE: 03/15/2024 INDICATION: ??Stricture of ureter. [...] 03/15/2024 EXAM: NM RENOGRAM WITH LASIX LOCATION: [facility] DATE: 03/15/2024 INDICATION: Stricture of ureter. [...] 80% of the renalfunction Stone Sage MD [facility] ORDERABLES * (ABNORMAL) UA Macroscopic with [...] mg/dL 02/18/2024 11:33 AM CDT LABORATORY Specific [place] Urine 1.011 1.003 - 1.035 02/18/2024 11:33 [...] LAB - URIN E ORDERABLES LABORATORY [facility] Acute Care Lab [address] floor, [address] [place] [address], [facility] [phone] * (ABNORMAL) Basic metabolic panel (02/18/2024 7:06 AM CDT) [facility] Sodium 139 135 - 145 mmol/L 02/18/2024 [...] LAB - BLOOD O RDERABLES LABORATORY [facility] Acute Care Lab [address] floor, [address] [place] [address], [facility] [phone] * (ABNORMAL) CBC with platelets and differential (02/17/2024 11:05 AM CDT) [facility] Signature WBC Count 8.4 4.0 - 11.0 [...] MD LAB - BLOOD ORD ERABLES LABORATORY [facility] Lab [address] floor, [address] [place] [address], [facility] [phone] * TSH with free T4 reflex (02/17/2024 11:05 AM CDT) TSH 1.38 0.30 - 4.20 uIU/mL 02/17/2024 2:02 PM CDT LABORATORY Blood BLOOD SPECIMEN / Unknown Venipuncture / Unknown 02/17/2024 11:05 AM CDT 02/17/2024 11:10 AM CDT Benjamin Moss DO LAB - BLOOD O RDERABLES LABORATORY [facility] Lab [address] 1[address] floor, [address] [place] [address], [facility] [phone] from Last 3 Months or Most Recently Relevant to Health Maintenance Advance Directives For more information, please contact: [phone] * Full Code (Latest Code Status on File) Date Activated Date Inactivated Comments 02/17/2024 3:57 PM 02/18/2024 7:29 PM All basic an d advanced life-sustaining interventions are performed as appropriate Question Answer Comments Code status determined by: Discussion with shilpa nt/ legal decision maker Care Teams Chain Forming Machine Operator Relationship Specialty Start Date End Date Irma Mandujano MD [address] [place] [address] PCP - General Family Medicine 02/23/24
--- OUTSIDE RECORDS SUMMARY | 2024-06-10 10:57 | XMS_ITS | Clinical Summary ---
Author Organization [facility] Address [address] [place] [address] Care Team Providers Care Business Systems Advisor Name Role Phone Irma Mandujano MD Primary Care Provider [phone] Allergies Active Allergy Reactions Criticality Noted Date [...] ureteral stricture, not elsewhere classified 12/24/2023 terminal carman current use of anticoagulant Atrial fibrillation, unspecified type 12/18/2022 Hypertensive kidney disease, stage V 01/05/2022 Aortic valve regurgitation 12/08/2021 Mitral valve regurgitation 12/08/2021 Gastroesophageal reflux disease without esophagi tis 10/24/2021 Chronic fibrosis of lung 10/23/2021 Essential hypertension 07/31/2021 terminal carman (current) use of aspirin 07/31/2021 History of falling 06/17/2020 Hyperlipidemia 11/30/2019 Hypothyroidism 11/23/2019 Lung granuloma 03/01/2019 Overview: CT stable [address] [place] continues to confirm no change 2019 Arthritis of left foot 05/24/2018 Adjustment disorder with mixed anxiety and depre ssed mood 06/30/2015 Insomnia, unspecified 01/26/2008 Encounters Date Type Department Care Team Description 03/15/2024 12:37 PM CDT - 03/15/2024 11:59 PM CDT Hospital Encounter [facility] Imaging [address] [place] [phone] Stone Sage MD Stricture of ureter Discharge [...] PARATHYROID 1940 PHOSPHORUS 1940 ALK PHOS 1941 FALL RISK ASSESSMENT 2005 DTAP/TDAP/TD IMMUNIZATION (1 - Tdap) 01/27/2008 01/26/2008, 02/26/1988 ZOSTER IMMUNIZATION (2 of 3) 03/22/2008 01/26/2008 RSV VACCINE (1 - 1-dose 75+ series) 2015 MEDICARE ANNUAL WELLNESS VISIT 01/05/2023 01/05/2022 PHQ-2 (once per calendar year) 2023 BMP 05/20/2024 02/18/2024, 02/17/2024 COVID-19 Vaccine ( - season) 2024 INFLUENZA VACCINE (#1) 2024 6, 06/24/2015, 07/17/2014, [...] CDT EXAM: NM RENOGRAM WITH LASIX LOCATION: [facility] DATE: 03/15/2024 INDICATION: ??Stricture of ureter. [...] 03/15/2024 EXAM: NM RENOGRAM WITH LASIX LOCATION: [facility] DATE: 03/15/2024 INDICATION: Stricture of ureter. [...] 80% of the renalfunction Stone Sage MD [facility] [place] ORDERABLES * (ABNORMAL) UA Macroscopic with reflex to Microscopic and Culture (02/18/2024 11:04 AM CDT) Color Urine Straw Colorless, Straw, Light Yellow, Yellow 02/18/2024 11:33 AM CDT LABORATORY Appearance Urine Clear Clear 02/18/20 11:33 AM CDT LABORATORY Glucose Urine Negative Negative mg/dL 02/18/2024 11:33 AM T LABORATORY Bilirubin Urine Negative Negative 11:33 AM T LABORATORY Ketones Urine Negative Negative mg/dL 02/18/2024 11:33 AM CDT LABORATORY Specific [place] Urine 1.011 1.003 - 1.035 02/18/2024 11:33 AM T LABORATORY Blood Urine Trace(A) Negative 02/18/2024 11:33 AM CDT LABORATORY pH Urine 6.5 5.0 - 7.0 02/18/2024 11:33 AM CDT LABORATORY Protein Albumin Urine Negative Negative mg/dL 02/18/2024 11:33 AM T LABORATORY Urobilinogen Urine Normal Normal, 2.0 mg/dL [...] NP LAB - URIN E ORDERABLES LABORATORY [facility] Acute Care Lab [address], [address] [place] [address], [email or web address]] [phone] * (ABNORMAL) Basic metabolic panel (02/18/2024 7:06 AM CDT) [facility] Signature Sodium 139 135 - 145 mmol/L 02/18/2024 [...] DO LAB - BLOOD O RDERABLES LABORATORY [facility] Acute Care Lab [address] floor, [address] [place] [address], [facility] [[email or web address]] [phone] * (ABNORMAL) CBC with platelets and differential [...] MD LAB - BLOOD ORD ERABLES LABORATORY [facility] Acute Care Lab [address] 1[address] floor, [address] [place] [address], [facility] [[email or web address]] [phone] * TSH with free T4 reflex (02/17/2024 11:05 AM CDT) TSH 1.38 0.30 - 4.20 uIU/mL 02/17/2024 2:02 PM CDT LABORATORY Blood BLOOD SPECIMEN / Unknown Venipuncture / Unknown 02/17/2024 11:05 AM CDT 02/17/2024 11:10 AM CDT Benjamin Moss DO LAB - BLOOD O RDERABLES LABORATORY [facility] Acute Care Lab [address] 1st floor, [address] [place] [address], [facility] [[email or web address]] [phone] from Last 3 Months or Most Recently Relevant to Health Maintenance Advance Directives For more information, please contact: [phone] * Full Code (Latest Code Status on File) Date Activated Date Inactivated Comments 02/17/2024 3:57 PM 02/18/2024 7:29 PM All basic an d advanced life-sustaining interventions are performed as appropriate Question Answer Comments Code status determined by: Discussion with shilpa reese/ legal decision maker Care Teams Business Systems Advisor Relationship Specialty Start Date End Date Irma Mandujano MD [facility] [place] [address] PCP - General Family Medicine 02/23/24
--- OUTSIDE RECORDS SUMMARY | 2024-06-10 10:57 | XMS_ITS | Encounter Summary ---
Author Organization [place] Address [address] [place] [address] Care Team Providers Care Foil Wrapper Name Role Phone Irma Mandujano MD Primary Care Provider [phone] Reason for Referral * Diagnostic Imaging NM (Routine) - Closed Specialty Diagnoses / Procedures Referred By Kayla harris Referred To Contact Radiology. Diagnoses Stricture of ureter Procedures NM Renogram with Stone Nicole MD [facility] [address] [address] Nuclear Medicine [facility] [place] [address] Referral ID Status Reason Start Date Expiration Date Visits Re quested Visits Authorized [id number] Closed 03/13/2024 03/13/2025 1 1 Reason for Visit * Diagnostic Imaging NM (Routine) - Closed Specialty Diagnoses / Procedures Referred By Kayla harris Referred To Contact Radiology. Diagnoses Stricture of ureter Procedures NM Renogram with Stone Nicole MD [facility] [address] [address] Nuclear Medicine [facility] [place] [address] Referral ID Status Reason Start Date Expiration Date Visits Re quested Visits Authorized [id number] Closed 03/13/2024 03/13/2025 1 1 Encounter Details Date Type Department Care Team (Latest Contact Info) Description 03/15/2024 12:37 PM CDT - 03/15/2024 11:59 PM CDT Hospital Encounter [facility] [address] [place] [phone] Stone Sage MD [facility] [address] [address] Stricture of ureter Discharge Disposition: Home or [...] EXAM: NM RENOGRAM WITH LASIX LOCATION: [facility] DATE: 03/15/2024 INDICATION: ??Stricture of ureter. [...] EXAM: NM RENOGRAM WITH LASIX LOCATION: [facility] DATE: 03/15/2024 INDICATION: Stricture of ureter. [...] 80% of the renalfunction Stone Sage MD [facility] [place] ORDERABLES documented in this encounter Visit [...] millicuries documented in this encounter Care Teams Foil Wrapper Relationship Specialty Start Date End Date Irma Mandujano MD [address] [place] [address] PCP - General Family Medicine 02/23/24 documented as of this encounter
--- OUTSIDE RECORDS SUMMARY | 2024-06-10 10:57 | XMS_ITS | Encounter Summary ---
Author Organization [facility] Address [address] [place] [address] Care Team Providers Care Precision Lens Centerer And Edger Name Role Phone rIma Mandujano MD Primary Care Provider [phone] Encounter Details Date Type Department Care Team [...] on filedocumented in this encounter Care Teams Precision Lens Centerer And Edger Relationship Specialty Start Date End Date Irma Mandujano MD [address] [place] [address] PCP - General Family Medicine 02/23/24 documented as of this encounter
--- OUTSIDE RECORDS SUMMARY | 2024-06-10 10:58 | XMS_ITS | Continuity of Care Document ---
Author Organization [place] [facility] [place] [facility], [facility] Address [address] [facility] [place] [address] Care Team Providers Care Production Operations Engineer Name Role Phone BRIAN HURD Referring Provider [...] Abnormal Flag Note LastModifiedBy Organization Detail LastModifiedTime 03/15/2003/15/2024 NM, kidyris y scan No observ ation record ed. [facility] Radiology [address] [place], [address], 03/23/2024 16:15:30 Result Notes None recorded. Problems Name Problem SNOMED Code Status Onset Date Resolution Date Notes Provider Name and Address Organization Details Recorded Time Obstruction of pelviureteric junction 55093710 Active 2023 Stone Sage MD [address] [place] [address],[address] [place] [address], [address], [facility] 4 22:00:44 Hydronephrosis 40477405 Active 2023 Stone Sage MD [address] [place] [address],[address], [place], [address], [facility] 4 12:46:39 Essential hypertension 79392934 Active 2023 Stone Sage MD [address] [place] [address],[address], [place], [address], [facility] 4 12:46:47 Problem Notes None recorded. Medical Equipment None Reported. Allergies No known drug allergies Medications Name Sig Start Date Stop Date Status Note LastModified by Organization Details LastModified Time nebulizer tubing [id number] DIRECTED. REPLACE MASK AND TUBING EVERY 6 [...] Updated DateTime 03/28/2024 160.02 cm 29.1 kg/m2 88171.15 g Stone Sage MD [address] [place] [address],[address], [place], [address] 03/28/2024 16:45:08 Social History Question Answer Notes LastModified by Organizat ion Details LastModified Time Tobacco Smoking Status Never Smoker Stone Sage MD [address] [place] [address],[address], [address], [facility] 01/18/2024 16:04:53 What Is Your Level Of [...] Disease N Depression N GERD/Acid Reflux N Diabetes N Sexually Transmitted Infection N Bleeding Disorder N Cancer N High Cholesterol N Heart Disease N Gynecological HistoryNo gynecological history recorded. Obstetrics History GPAL:G 0 P 0 0 0 0 Immunizations Vaccine Type Date Status Provider Name and Address Organization Details Recorded Time pneumococcal polysaccharide PPV23 09/15/2005 completed Stone Sage MD [address] [place] [address],[address], [address], [facility] 01/18/2024 16:03:41 Pneumococcal conjugate PCV 13 04/20/2017 completed Stone Sage MD [address] [place] [address],[address], [address], [facility] 01/18/2024 16:03:41 zoster live 01/26/2008 completed Stone Sage MD [address] [place] [address],[address] [address], [facility] 01/18/2024 16:03:41 Influenza, high-dose, trivalent, PF 06/24/2015 completed Stone Sage MD [address] [place] [address],[address], [address], [facility] 01/18/2024 16:03:41 Influenza, high-dose, trivalent, PF 07/17/2014 completed Stone Sage MD [address] [place] [address],[address], [address], [facility] 01/18/2024 16:03:41 Influenza, split virus, trivalent, preservative 07/25/2013 completed Stone Sage MD [address] [facility],[address], [place], [address], [facility] 01/18/2024 16:03:41 Td (adult), 5 Lf tetanus toxoid, preservative free, adsorbed 01/26/2008 completed Stone Sage MD [address] [place] [address],[facility] [address], [place], [address], [facility] 01/18/2024 16:03:41 Past Encounters Encounter ID Performer Location Encounter Start Date Encounter Closed Date Diagnosis/Indication Diagnosis SNOMED-CT Code Diagnosis ICD10 Code [id number] Stone Sage MD [facility] [address] [place] [address] 03/28/2024 16:36:27 04/07/2024 11:48:32 Obstruction of pelviureteric junction 33381743 N13.5 Hydronephrosis 38517502 N13.30 Essential hypertension 83252016 I10 Health Concerns Section Related Observation LastModified by Organization Detai ls LastModified Time None Recorded Concern Status LastModified by Organization Details LastModified Time None Recorded Payers Encounter Date Sequence Insurance Name Policy Number Policy Schaffer Covered Member ID Schaffer Member ID Guarantor Name 03/28/2024 1 [place]IC[place] COST [id number] Sun Medrano [id number] Sun Medrano Notes Date Note Type Note Provider Name and Address Organization Details Recorded Time 03/28/2024 text/html HPI Notes: 83 YO F HX OF EARLY SEPSIS AND RT HYDRONEPHROSIS, 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 HAD A STENT PLACED IN [place] AND RESPONDED WELL TO ANTIBIOTICS.. HOWEVER, SHE [...] REVIEWED OPTIONS IN DETAIL. Stone Sage MD [address] [facility],[address], [place], [address], [facility] 03/29/2024 12:47:05 OBGyn Episode No OBEpisode recorded.
[2024-06-10 10:59] LABS: Chloride* 104 mmol/L (96-114); Potassium* 4.4 mmol/L (3.6-5.1); Sodium* 137 mmol/L (135-149)
[2024-06-10 11:00] LABS: Albumin* 3.9 g/dL (3.3-5.0)
[2024-06-10 11:01] LABS: Creatinine* 1.6 mg/dL (0.5-1.5); Estimated Glomerular Filt Rate 32 ml/min
[2024-06-10 11:02] LABS: Anion Gap 9 mEq/L (7-15); Blood Urea Nitrogen* 29 mg/dL (7-30); Calcium* 9.1 mg/dL (8.4-10.6); Carbon Dioxide* 24 mmol/L (20-32); Glucose* 124 mg/dL (60-115)
[2024-06-10 11:03] LABS: Alanine Aminotransferase* 13 U/L (4-35); Alkaline Phosphatase* 137 U/L (40-150); Aspartate Amino Transferase* 25 U/L (12-35); Bilirubin Direct* 0.3 mg/dL (0.0-0.5); Bilirubin Total* 0.7 mg/dL (0.1-1.5); Lipase* 57 U/L (23-300)
[2024-06-10 11:05] LABS: C Reactive Protein* < 0.5 mg/dL (0.5-1.0)
[2024-06-10] MEDS: cefTRIAXone 1 GM in 0.9 % SODIUM CHLORIDE Mini-bag 100 ML IVPB (11:18)
[2024-06-10 11:25] VITALS: BP 178/64; PULSE 58; RESP 16; O2SAT 99
[2024-06-10 14:23] VITALS: BP 158/83; PULSE 64; RESP 16; TEMP 36.6; O2SAT 100
== END 2024-06-10 17:31 | disposition other institution (70) ==
PROVIDERS: Emergency Provider Emergency Medicine; PCP Student in an Organized Health Care Education/Training Program
DX: N13.9 Obstructive and reflux uropathy, unspecified (principal); N39.0 Urinary tract infection, site not specified
CPT/HCPCS: 36415; 74176; 80048; 80076; 81001; 83605; 83690; 85025; 86140; 87040; 87086; 87186; 96365; 96375; 99284; 99285; J0696; J2270; J2405; J7030

== ENCOUNTER 2024-06-10 17:23 | Outpatient (CLI) | payer MEDICARE, BC, SELFPAY ==
--- OUTSIDE RECORDS SUMMARY | 2024-06-13 02:47 | XMS_ITS | Encounter Summary ---
Author Organization [facility] Address [address] [place] [id number] Care Team Providers Care Nanotechnology Technician Name Role Phone Irma Mandujano MD Primary Care Provider [phone] Reason for Visit * Auth/Cert (Routine) Specialty Diagnoses / Procedures Referred By Kayla harris Referred To Contact Med Surg Diagnoses dilation of right renal pelvicalyceal septum, needs renal stent Urinary tract infection [facility] [address] [phone] Referral ID Status Reason Start Date Expiration Date Visits Re quested Visits Authorized [id number] 1 1 Encounter Details Date Type Department Care Team (Latest Contact Info) Description 06/10/2024 6:54 PM CDT - 06/12/2024 2:30 PM CDT Hospital Encounter [facility] General Surgery [address] [facility] [place] [address] Fawad Reardon, DO [address] [facility] [place] [address] Urinary tract infection without hematuria, site unspecified (Primary Dx) Discharge Disposition: Home or Self Care Social History Tobacco Use Types Packs/Day Years Used Date Smoking Tobacco: Never Smokeless Tobacco: Never Alcohol Use Standard Drinks/Week Comments No 0 (1 standard drink = 0.6 oz pur e alcohol) Adolescent Education Answer Date Record ed Getting School Help Needed Not on file 02/16 Food Insecurity Answer Date Recorded Within the past 12 months, d id you worry that your food would run out before you got money to buy more? No 06/10/2024 Within the past 12 months, d id the food you bought just not last and you didn? t have money to get more? No 06/10/2024 Housing Stability Answer Date Recorded Do you have housing? (Kyle porter is defined as stable permanent housing and does not include staying ouside in a car, in a tent, in an abandoned building, in an overnight longterm, or couch-surfing.) Yes 06/10/2024 Are you worried about losing your housing? No 06/10/2024 Financial Resource Strain Answer Date R ecorded Within the past 12 months, h ave you or your family members you live with been unable to get utilities (heat, electricity) when it was really needed? No 06/10/2024 Transportation Needs Answer Date Record ed Within the past 12 months, h as lack of transportation kept you from medical appointments, getting your medicines, non-medical meetings or appointments, work, or from getting things that you need? No 06/10/2024 Interpersonal Safety Answer Date Record ed Do you feel physically and e motionally safe where you currently live? Yes 06/11/2024 Within the past 12 months, h ave you been hit, slapped, kicked or otherwise physically hurt by someone? No 06/11/2024 Within the past 12 months, h ave you been humiliated or emotionally abused in other ways by your partner or ex-partner? No 06/11/2024 Sex and Gender Information Value Date Recorded Sex Assigned at Not on file Gender Identity Not on file Sexual Orientation Not on file documented as of this encounter Last Filed Vital Signs Vital Sign Reading Time Taken Comments Blood Pressure 158/65 06/12/2024 7:39 AM CDT Pulse 60 06/12/2024 7:39 AM CDT Temperature 36.6 ??C (97.8 ??F) 06/12/2024 7:39 AM CD T Respiratory Rate 16 06/12/2024 7:39 AM CDT Oxygen Saturation 99% 06/12/2024 7:39 AM CDT Inhaled Oxygen Concentration - - Weight 75.9 kg (167 lb 6.4 oz) 06/11/2024 7:19 A M CDT Height - - Body Mass Index 29.65 02/17/2024 10:23 AM CDT documented in this encounter Discharge Summaries * Kerry Saavedra - 06/12/2024 10:06 AM CDT [facility] Discharge Summary Hospitalist Date of Admission: 06/10/2024 Date of Discharge: 06/12/2024 Discharging Provider: Kerry Saavedra DO Discharge Diagnoses Obstructive Uropathy, s/p R ureteral stent placement on 06/10/24 UTI dt ecoli Stage III CKD Hypertension Paroxysmal atrial fibrillation, on ASA in lieu of DOAC History of TIA Hypothyroidism History of Present Illness Sun Singh is a 84 year old female with PMhx of hypertension, paroxysmal A-fib not on chronic anticoagulation, history of TIA, hypothyroidism and history of obstructive uropathy with prior stent placement in 02/2024 who was admitted from [place] the ED on 06/10/2024 for management of obstructive uropathy with concern for possible intrarenal collecting system rupture. She was seen by urology on admission and taken to the OR on 06/10 PM for right ureteral stent placement. Hospital Course Sun Singh was admitted on 06/10/2024. The following problems were addressed during her hospitalization: Obstructive uropathy, s/p R ureteral stent placement on 06/10/24 UTI dt ecoli Stage III CKD *Has noted history of pyelonephritis and severe hydronephrosis while in [place] earlier this year and had a stent placed for UPJ ureteral stricture. Stent was then removed in 02/2024. *Presented to [place] ED on 06/10 for acute onset abdominal pain that woke her up from sleeping. Labs were notable for Cr 1.6 (reportedly baseline Cr is 1.6- 1.9 since stent was placed, prior to that baseline Cr had been around 1.0), WBC 15.6, lactate 0.9. UA abnl with 20-[address] abd/pelvis showed perinephric stranding on the right and possible intrarenal collecting system rupture. Blood cultures drawn, was started on IV ceftriaxone. Transferred to [facility] for further urologic evaluation. *Seen by Dr. Sharpe of [facility] on admission. Taken to the OR and underwent cystoscopy with right retrograde pyelogram and placement of a right ureteral stent on 06/10 PM. *Maintained on IV ceftriaxone during stay. *UC obtained in ED prior to transfer to [facility] grew >100k ecoli (elder-sensitive), blood cultures were negative at the time of discharge. Discharged on 5 days of Keflex to complete total of 7d treatment course. *Cr stable at 1.8 this stay, which appeared to be within the realm of her baseline. Lytes stable. *Will follow up with [facility] in 1 month as advised. Hypertension *Chronic and stable on amlodipine, losartan and HCTZ. *BPs elevated on admission, due in part to pain and that patient had not taken her evening blood pressure meds. *BPs improved following urologic procedure. Continued on amlodipine this stay. Losartan/HCTZ held while monitoring renal function, resumed at discharge. Paroxysmal atrial fibrillation, on ASA in lieu of DOAC History of TIA *Had previously been on chronic anticoagulation with Xarelto but reportedly stopped taking this dueto concerns about bleeding risk. Is now taking ASA 81 mg daily. *Continued on ASA this stay. Ongoing discussion of resumption of DOAC per PCP. Hypothyroidism *Chronic and stable on levothyroxine Kerry Saavedra, DO Significant Results and Procedures Date of Procedure: 06/10/2024 Pre-op Dx: Right ureteropelvic junction obstruction Post-op Dx: Same Procedure: 1. Cystoscopy with right retrograde pyelogram 2. Right ureteral stent placement 3. Intraoperative interpretation of fluroroscopic images Surgeon: Keenan Sharpe MD Code Status Full Code Primary Care Physician Irma Mandujano Physical Exam Temp: 97.8 ??F (36.6 ??C) Temp src: Oral BP: (!) 158/65 Pulse: 60 Resp: 16 SpO2: 99 % O2 Device: None (Room air) Vitals: 06/10/24 2300 06/10/24 2331 06/11/24 0719 Weight: 75.3 kg (166 lb) 74.7 kg (164 lb 11.2 oz) 75.9 kg (167 lb 6.4 oz) Vital Signs with Ranges Temp: [97.7 ??F (36.5 ??C)-98.2 ??F (36.8 ??C)] 97.8 ??F (36.6 ??C) Pulse: [57-60] 60 Resp: [16-18] 16 BP: (131-163)/(53-65) 158/65 SpO2: [99 %-100 %] 99 % I/O last 3 completed shifts: In: 210 [P.O.:210] Out: 1100 [Urine:1100] General: Resting comfortably, alert, conversive, NAD CVS: HRRR, no MGR, no LE edema Respiratory: CTAB, no wheeze, no increased work of breathing GI: S, NT, DN, +BS Skin: Warm/dry Discharge Disposition Discharged to home Condition at discharge: Stable Consultations This Hospital Stay PHYSICAL THERAPY ADULT IP CONSULT OCCUPATIONAL THERAPY ADULT IP CONSULT UROLOGY IP CONSULT Time Spent on this Encounter IKerry DO, personally saw the patient today and spent greater than 30 minutes discharging this patient. Discharge Orders Follow Up ([facility] Follow-up with Dr. Sharpe or Dr. Sage in 4-6wks for further recheck and stent management. Call to schedule. You have a right ureteral stent to help allow drainage from your kidney to bladder. You should increase your fluid intake while you have a stent in place to ensure good drainage of urine. Your stent is not permanent, it requires routine exchanges or removal with your urologist based on your plan of care. While the stent is in place you may notice: -Flank / back/ side pain on the same side of your body as the stent -Blood tinged urine that may come and go -Sensation that you need to urinate more frequently -Bladder cramping/discomfort at the end of urination These are all normal to experience with the stent in place. However, if these symptoms become too bothersome to tolerate, please alert your urologist. [address] [place] [address]. [id number] You may call with any questions or concerns. Central Appointment #: Reason for your hospital stay Placement of a ureteral stent and treatment with antibiotics. Activity Your activity upon discharge: activity as tolerated Follow-up and recommended labs and tests In addition to following up with urology, you should follow up with your PCP in the next week. Diet Follow this diet upon discharge: Regular Discharge Medications Current Discharge Medication List START taking these medications Details cephALEXin (KEFLEX) 500 MG capsule Take 1 capsule (500 mg) by mouth 2 times daily for 5 days. Qty: 10 capsule, Refills: 0 Associated Diagnoses: Urinary tract infection without hematuria, site unspecified CONTINUE these medications which have NOT CHANGED Details amLODIPine (NORVASC) 5 MG tablet Take 1 tablet by mouth daily. aspirin 81 MG EC tablet Take 81 mg by mouth daily. hydroCHLOROthiazide 12.5 MG tablet Take 1 tablet (12.5 mg) by mouth daily Qty: 30 tablet, Refills: 0 Associated Diagnoses: Essential hypertension levothyroxine (SYNTHROID/LEVOTHROID) 88 MCG tablet Take 88 mcg by mouth daily losartan (COZAAR) 50 MG tablet Take 50 mg by mouth 2 times daily. magnesium oxide (MAG-OX) 400 MG tablet Take 400 mg by mouth at bedtime. Melatonin 10 MG TABS tablet Take 10 mg by mouth at bedtime. Multiple Vitamins-Minerals (PRESERVISION AREDS 2) CHEW Take 1 tablet by mouth daily. Polyethylene Glycol 400 0.25 % GEL Apply 1-2 drops to eye every 2 hours as needed (dry eyes) Uses Blink brand potassium gluconate 2.5 MEQ tablet Take 2.5 mEq by mouth at bedtime. vitamin D3 (CHOLECALCIFEROL) 50 mcg (2000 units) tablet Take 1 tablet by mouth daily Allergies Allergies Allergen Reactions Abdon Inhibitors Levsin Metoprolol Succinate Data Most Recent 3 CBC's: Recent Labs Lab Test 06/11/24 0703 02/17/24 1105 WBC 9.8 8.4 HGB 9.0* 10.4* MCV 93 92 PLT 308 329 Most Recent 3 BMP's: Recent Labs Lab Test 06/12/24 0840 06/11/24 0703 02/18/24 0706 NA 138 135 139 POTASSIUM 4.2 4.9 4.2 CHLORIDE 104 104 107 CO2 24 22 22 BUN 36.3* 26.9* 18.2 CR 1.89* 1.84* 1.23* ANIONGAP 10 9 10 JAIMIE 9.0 8.6* 9.1 GLC 102* 136* 87 documented in this encounter Medications at Time of Discharge Medication Sig Dispensed Refills Start Date End Date amLODIPine (NORVASC) 5 MG tablet Take 1 tablet by mouth daily. 05/15/2024 aspirin 81 MG EC tablet Take 81 mg by mouth daily. cephALEXin (KEFLEX) 500 MG capsuleIndications:Urina ry tract infection without hematuria, site unspecified Take 1 capsule (500 mg) by mouth 2 times daily for 5 days. 10 capsule 06/12/2024 06/17/2024 hydroCHLOROthiazide 12.5 MG tabletIndications:Essent ial hypertension Take 1 tablet (12.5 mg) by mouth daily 30 tablet 02/18/2024 levothyroxine (SYNTHROID/LEVOTHROID) 88 MCG tablet Take 88 mcg by mouth daily losartan (COZAAR) 50 MG tablet Take 50 mg by mouth 2 times daily. magnesium oxide (MAG-OX) 400 MG tablet Take 400 mg by mouth at bedtime. Melatonin 10 MG TABS tablet Take 10 mg by mouth at bedtime. Multiple Vitamins-Minerals (PRESERVISION AREDS 2) CHEW Take 1 tablet by mouth daily. Polyethylene Glycol 400 0.25 % GEL Apply 1-2 drops to eye every 2 hours as needed (dry eyes) Uses Blink brand potassium gluconate 2.5 MEQ tablet Take 2.5 mEq by mouth at bedtime. vitamin D3 (CHOLECALCIFEROL) 50 mcg (2000 units) tablet Take 1 tablet by mouth daily documented as of this encounter Progress Notes * Patrick Colorado RN - 06/12/2024 2:58 PM CDT Met with pt to go over discharge paperwork. Answered all questions. Provided pt with her discharge medications. Daughter provided PT transportation home. * Carlton Aguilar, Infection Prevention - 06/12/2024 9:40 AM CDT CP-SECURITY SYSTEM ENGINEER and Leni auris screening information This patient was admitted to a hospital or long-term care facility in a high risk area in the prior12 months. and is potentially at a high risk for carrying CP-SECURITY SYSTEM ENGINEER and/or Leni auris. The [place] Department of Health ([facility]) and CDC recommend that we test this patient to prevent the spread of these organisms within our healthcare facility. Testing is voluntary and includes collecting an axillaand groin swab for C. auris and a rectal swab for CP-SECURITY SYSTEM ENGINEER. Due to the potential transmission of these organisms in healthcare settings, Infection Prevention requires that this patient be placed in a private room on Contact Precautions until testing is complete. While the Leni auris testing is pend ing, bleach or an approved disinfectant (e.g. PDI Prime) should be used clean the patient???s room and equipment. Please notify Infection Prevention if the patient declines testing. Additional information and resources can be found on the Infection Prevention [employer] Sharepoint page. 06/12/2024 Carlton Aguilar, Infection Prevention * Patrick Colorado RN - 06/12/2024 8:12 AM CDT Pt c/o post nasal drip. Reports symptoms started after her emesis on Wednesday. * Omero Hameed RN - 06/12/2024 6:20 AM CDT Date & Time: 06/11/24, [id number] Surgery/POD#/Admission Date: POD1 cystoscopy w/ right retrograde pyelogram, R ureteral stent placement Hx: HTN, Afib, chronic UPJ obstruction, CKD, TIA Behavior & Aggression: Green Fall Risk: Yes Orientation: AO4 VS/O2: VSS RA ex HTN Pain Management: PRN Tylenol x1 GI/: Continent BB, adequate UOP w/ dysuria IV/Lines: PIV SL Diet: Tolerating regular Activity Level: Ind w/ cane Anticipated DC Date: Pending Significant Information: Mucusy cough, states has been present since vomiting prior to admission. Uses incentive spirometer frequently, lung sounds clear. * Judith Reardon RN - 06/11/2024 7:06 PM CDT [id number] Status: Patient admitted on 06/10, now POD#1 s/p right ureteral stent Vitals: VSS Neuros: Intact IV: PIV saline locked Labs/Electrolytes: WNL Resp/trach: Lung sounds clear throughout Diet: Regular Bowel status: Last BM 06/09, BS hyperactive, passing flatus : Voiding spontaneously, urine blood tinged/antonio Skin: Intact Pain: Abdominal pain relieved with Tylenol Activity: Independent Social: Cooperative with cares Plan: Discharge home when medically stable, continue to monitor and follow POC * Rekha Marques RN - 06/11/2024 1:58 PM CDT Date & Time: 06/11/24 [id number] Surgery/POD#/Admission Date: POD0 cystoscopy w/ right retrograde pyelogram, R ureteral stent placement Hx: HTN, Afib, chronic UPJ obstruction, CKD, TIA Behavior & Aggression: Green Fall Risk: Yes Orientation: A/Ox4 VS/O2: VSS RA Pain Management: PRN Tylenol x1 GI/: Continent BB, adequate UOP w/ dysuria IV/Lines: PIV SL Diet: Tolerating regular Activity Level: SBA w/ cane Anticipated DC Date: Pending * Nevaeh Marte PT - 06/11/2024 1:35 PM CDT 06/11/24 1335 Appointment Info Signing Clinician's Name / Credentials (PT) Estephania Pardo SPT Student Supervision On-site supervision provided;Therapy services provided with the co-signing licensed therapist guiding and directing the services, and providing the skilled judgement and assessment throughout the session (Nevaeh Marte, PT, DPT) Living Environment People in Home spouse Current Living Arrangements house Home Accessibility no concerns;stairs to enter home Number of Stairs, Main Entrance 2 Stair Railings, Main Entrance railings safe and in good condition Transportation Anticipated family or friend will provide Living Environment Comments Pt lives w/ spouse in 1 story home, 2 steps to enter. Daughter lives across the street and is able to assist as needed. Self-Care Usual Activity Tolerance good Current Activity Tolerance good Regular Exercise Yes Activity/Exercise Type walking Exercise Amount/Frequency 30 mins;daily Equipment Currently Used at Home cane, straight Fall history within last six months yes Number of times patient has fallen within last six months 1 Activity/Exercise/Self-Care Comment Pt reports being independent w/ ADLs and IADLs. Likes to go on walks daily and does aquatic physical therapy. Uses cane for balance at baseline General Information Onset of Illness/Injury or Date of Surgery 06/10/24 Referring Physician Fawad Reardon, DO Patient/Family Therapy Goals Statement (PT) return home Pertinent History of Current Problem (include personal factors and/or comorbidities that impact thePOC) Sun Singh is a 84 year old female admitted on 06/10/2024 as a direct admit for obstructive uropathy and possible intrarenal collecting system rupture Cognition Affect/Mental Status (Cognition) WFL Orientation Status (Cognition) oriented x 4 Follows Commands (Cognition) WFL Pain Assessment Patient Currently in Pain (L hip pain from procedure during childhood, currently seeing OP PT for it) Integumentary/Edema Integumentary/Edema Comments Age related skin changes Posture Posture Forward head position Range of Motion (ROM) Range of Motion ROM is WFL Strength (Manual Muscle Testing) Strength Comments Grossly antigravity BUE and BLE for functional transfers Bed Mobility Comment, (Bed Mobility) Independent supine>sit Transfers Comment, (Transfers) Mod I sit>stand w/ single point cane Gait/Stairs (Locomotion) Distance in Feet (Gait) 5' eval + 250' treatment Comment, (Gait/Stairs) Amb with SPC, SBA, increased lateral trunk sway, decreased step length. Balance Balance Comments Independent seated and standing balance Sensory Examination Sensory Perception patient reports no sensory changes Clinical Impression Criteria for Skilled Therapeutic Intervention Yes, treatment indicated PT Diagnosis (PT) Impaired fuctional mobility Influenced by the following impairments Decreased activity tolerance and impaired balance Functional limitations due to impairments Impaired functional independence Clinical Presentation (PT Evaluation Complexity) stable Clinical Presentation Rationale per MR and clinical judgement Clinical Decision Making (Complexity) low complexity Planned Therapy Interventions (PT) balance training;gait training;ROM (range of motion);stair training;progressive activity/exercise;neuromuscular re- education;patient/family education;bed mobility training;home exercise program;strengthening;transfer training Risk & Benefits of therapy have been explained evaluation/treatment results reviewed;care plan/treatment goals reviewed;risks/benefits reviewed;current/potential barriers reviewed;participants included;participants voiced agreement with care plan;patient PT Total Evaluation Time PT Eval, Low Complexity Minutes (76069) 5 Physical Therapy Goals PT Frequency 2x/week PT Predicted Duration/Target Date for Goal Attainment 06/14/24 PT Goals PT Goal 1 PT: Bed Mobility Independent;Supine to/from sit;Goal Met PT: Transfers Modified independent;Goal Met;Sit to/from stand;Bed to/from chair PT: Gait Modified independent;Greater than 200 feet;Straight cane PT: Stairs Modified independent;3 stairs;Rail on both sides PT: Goal 1 Pt will score >24/30 on FGA in order to demonstrate a decreased risk for falls. Therapeutic Activity Therapeutic Activities: dynamic activities to improve functional performance Minutes (42012) 1 Treatment Detail/Skilled Intervention pt greeted semi fowlers in bed. Pt agreeable to therapy session. pt completed sit<>stand Mod I w/ single point cane. Pt left in in bed, all needs in reach.Pt tolerated session well Gait Training Gait Training Minutes (33311) 8 Symptoms Noted During/After Treatment (Gait Training) increased pain (previous hip pain from before admission) Treatment Detail/Skilled Intervention Pt ambulated 250' w/ single point cane SBA. Reciprocal gait pattern, good pace, and no signs LOB. Slight antalgic gait due to hip pain from previous surgery, already seeing OP PT for it. Cues for upright gaze/posture. Pt ascended and descended 1x4 stairs w/ rail and cane. Cues for sequencing, Step to patter with R leg leading ascending, and L leg leading descending. Cues for cane placement/sequencing, SBA. Neuromuscular Re-education Neuromuscular Re-Education Minutes (20259) 10 Symptoms Noted During/After Treatment increased pain (previous hip pain from before admission) Treatment Detail/Skilled Intervention Pt completed the following duel tasks 1x10ft to challenge balance and decrease risk of falls: Increase/decrease in speed w/ cues, horizontal head turns, verticalhead turns, eyes closed, tandem stepping. Pt had decreased danii and increased lateral trunk swayw/ duel tasks but no LOB. Pt was unable to perform tandem stepping w/o holding onto therapist or rail for balance. Pt stood on pillow for 30sec eyes open and 30 sec eyes closed w/ cane for support. Pt had increased lateral trunk sway w/ eyes closed but no LOB throughout PT Discharge Planning PT Plan likely d/c home tomorrow. If not continue to balance assessmen, review stair sequencing PT Discharge Recommendation (DC Rec) home;home with assist;home with outpatient physical therapy PT Rationale for DC Rec Pt tolerated session well. Pt slightly below baseline functional independence. Pt limited by decreased activity tolerance, impaired balance, and pain from previous hip surgery. Pt at baseline lives w/ spouse in home, two steps to enter. Pt reports being independent w/ ADLs and IADLs at baseline, can recieve assist from daughter if needed. Pt was previously modified independent for ambulation and transfers w/ single point cane. Pt currently indpendent w/ bed mobility, Neela for transfers, SBA for ambulation w/ single point cane. Pt will likely be able to return home w/ assist as needed once medicaly ready. Pt would benefit from continuing OP PT for hip pain, activity t olerance and balance deficits. Recommend pt have supervision with community ambulation due to balance deficits, may benefit from use of walker. Will continue to update as appropriate. PT Brief overview of current status Mod I w/ transfers, amb with SPC, SBA-Neela (Goals of therapy will be to address safe mobility and make recs for d/c to next level of care. Pt and RN will continue to follow all falls risk precautions as documented by staff rn while hospitalized.) Total Session Time Timed Code Treatment Minutes 19 Total Session Time (sum of timed and untimed services) 24 * Sunita Gonsales PA-C - 06/11/2024 11:27 AM CDT [facility] Progress Note Assessment & Plan Sun Singh is a 84 year old female who was admitted on 06/10/2024. POD 1 s/p right ureteral stent placement by Dr. Sharpe for UPJ obstruction Plan: -home with stent -follow-up in 1mo for recheck in office, AVS updated Sunita Gonsales PA-C [facility] Interval History Feeling quite well this AM, notes some hematuria and dysuria but not overly bothersome AVSS Creat 1.8 WBC 9.8 Hb 9.0 Physical Exam Temp: 97.7 ??F (36.5 ??C) Temp src: Oral BP: 129/59 Pulse: 55 Resp: 16 SpO2: 98 % O2 Device: None (Room air) Oxygen Delivery: 7 LPM Vitals: 06/10/24 2300 06/10/24 2331 06/11/24 0719 Weight: 75.3 kg (166 lb) 74.7 kg (164 lb 11.2 oz) 75.9 kg (167 lb 6.4 oz) Vital Signs with Ranges Temp: [97.6 ??F (36.4 ??C)-98.9 ??F (37.2 ??C)] 97.7 ??F (36.5 ??C) Pulse: [55-83] 55 Resp: [14-28] 16 BP: (129-181)/(58-72) 129/59 SpO2: [98 %-100 %] 98 % I/O last 3 completed shifts: In: 600 [I.V.:600] Out: 200 [Urine:200] Alert and oriented Breathing unlabored Extremities warm and well perfused Medications Current Facility-Administered Medications Medication Dose Route Frequency Provider Last Rate Last Admin Current Facility-Administered Medications Medication Dose Route Frequency Provider Last Rate Last Admin amLODIPine (NORVASC) tablet 5 mg 5 mg Oral Daily Fawad Reardon DO 5 mg at 06/11/24 0907 aspirin EC tablet 81 mg 81 mg Oral Daily Fawad Reardon DO 81 mg at 06/11/24 0907 cefTRIAXone (ROCEPHIN) 2 g vial to attach to NS 100 ml bag for ADULTS or NS 50 ml bag for PEDS 2 g Intravenous Q24H Fawad Reardon DO levothyroxine (SYNTHROID/LEVOTHROID) tablet 88 mcg 88 mcg Oral Daily Fawad Reardon DO 88 mcg at 06/11/24 0907 sodium chloride (PF) 0.9% PF flush 3 mL 3 mL Intracatheter Q8H Fawad Reardon DO Data Results for orders placed or performed during the hospital encounter of 06/10/24 (from the past 24 hour(s)) XR Surgery RICHARD L/T 5 Min Fluoro w Stills Narrative This exam was marked as non-reportable because it will not be read by a radiologist or a [facility] non-radiologist provider. Basic metabolic panel Result Value Ref Range Sodium 135 135 - 145 mmol/L Potassium 4.9 3.4 - 5.3 mmol/L Chloride 104 98 - 107 mmol/L Carbon Dioxide (CO2) 22 22 - 29 mmol/L Anion Gap 9 7 - 15 mmol/L Urea Nitrogen 26.9 (H) 8.0 - 23.0 mg/dL Creatinine 1.84 (H) 0.51 - 0.95 mg/dL GFR Estimate 27 (L) >60 mL/min/1.73m2 Calcium 8.6 (L) 8.8 - 10.4 mg/dL Glucose 136 (H) 70 - 99 mg/dL CBC with platelets Result Value Ref Range WBC Count 9.8 4.0 - 11.0 10e3/uL RBC Count 3.00 (L) 3.80 - 5.20 10e6/uL Hemoglobin 9.0 (L) 11.7 - 15.7 g/dL Hematocrit 27.9 (L) 35.0 - 47.0 % MCV 93 78 - 100 fL MCH 30.0 26.5 - 33.0 pg MCHC 32.3 31.5 - 36.5 g/dL RDW 15.5 (H) 10.0 - 15.0 % Platelet Count 308 150 - 450 10e3/uL * Kerry Saavedra, - 06/11/2024 10:05 AM CDT [facility] Hospitalist Progress Note Date of Admission: 06/10/2024 Assessment & Plan Sun Singh is a 84 year old female with PMhx of hypertension, paroxysmal A-fib not on chronic anticoagulation, history of TIA, hypothyroidism and history of obstructive uropathy with prior stent placement in 02/2024 who was admitted from [place] the ED on 06/10/2024 for management of obstructive uropathy with concern for possible intrarenal collecting system rupture. She was seen by urology on admission and taken to the OR on 06/10 PM for right ureteral stent placement. Obstructive Uropathy, s/p R ureteral stent placement on 06/10/24 Stage III CKD *Has noted history of pyelonephritis and severe hydronephrosis while in [place] earlier this year and had a stent placed for UPJ ureteral stricture. Stent was then removed in 02/2024. *Presented to [place] ED on 06/10 for acute onset abdominal pain that woke her up from sleeping. Labs were notable for Cr 1.6 (reportedly baseline Cr is 1.6- 1.9 since stent was placed, prior to that baseline Cr had been around 1.0), WBC 15.6, lactate 0.9. UA abnl with 20-[address] abd/pelvis showed perinephric stranding on the right and possible intrarenal collecting system rupture. Blood cultures drawn, was started on IV ceftriaxone. Transferred to [facility] for further urologic evaluation. *Seen by Dr. Sharpe of [facility] on admission. Taken to the OR and underwent cystoscopy with right retrograde pyelogram and placement of a right ureteral stent on 06/10 PM. -- cont IV ceftriaxone while awaiting update on blood cultures obtained prior to transfer (prior positive UC in 04/2024 grew ecoli that was elder-senstive), remains afebrile and WBC nl -- cont IVFs, Cr 1.84 today -- seems to be within her realm of baseline, lytes stable -- cont prns for pain/nausea Hypertension *Chronic and stable on amlodipine, losartan and HCTZ. *BPs elevated on admission, due in part to pain and that patient had not taken her evening blood pressure meds. *BPs improved following urologic procedure -- cont amlodipine -- cont holding losartan/HCTZ for now Paroxysmal atrial fibrillation, on ASA in lieu of DOAC History of TIA *Had previously been on chronic anticoagulation with Xarelto but reportedly stopped taking this dueto concerns about bleeding risk. Is now taking ASA 81 mg daily. -- cont ASA 81mg daily -- ongoing discussion of resumption of DOAC per PCP. Hypothyroidism *Chronic and stable on levothyroxine FEN: no IVFs, lytes stable, regular diet DVT Prophylaxis: PCDs Code Status: Full Code Disposition: Anticipate discharge home tomorrow (lives at home with spouse in [place]) pending postprocedure course, likely discharge on oral antibiotic pending culture data. Patient's daughter at bedside and supportive of this plan. Questions answered Medically Ready for Discharge: Anticipated Tomorrow Kerry Saavedra, DO Clinically Significant Risk Factors Present on Admission # Drug Induced Platelet Defect: home medication list includes an antiplatelet medication # Hypertension: Noted on problem list # Anemia: based on hgb <11 # Asthma: noted on problem list Medical Decision Making Please see A&P for additional details of medical decision making. Interval History Chart reviewed. Remains afebrile and hemodynamically stable. Seen this morning. Feeling well. No specific complaints other than some mild dysuria and hematuria. No fevers. No cp/sob/cough. No abd pain/n/v. -Data reviewed today: I reviewed all new labs and imaging results over the last 24 hours. I personally reviewed no images or EKG's today. Physical Exam Temp: 97.7 ??F (36.5 ??C) Temp src: Oral BP: 129/59 Pulse: 55 Resp: 16 SpO2: 98 % O2 Device: None (Room air) Oxygen Delivery: 7 LPM Vitals: 06/10/24 2300 06/10/24 2331 06/11/24 0719 Weight: 75.3 kg (166 lb) 74.7 kg (164 lb 11.2 oz) 75.9 kg (167 lb 6.4 oz) Vital Signs with Ranges Temp: [97.6 ??F (36.4 ??C)-98.9 ??F (37.2 ??C)] 97.7 ??F (36.5 ??C) Pulse: [55-83] 55 Resp: [14-28] 16 BP: (129-181)/(58-72) 129/59 SpO2: [98 %-100 %] 98 % I/O last 3 completed shifts: In: 600 [I.V.:600] Out: 200 [Urine:200] Constitutional: Resting comfortably, alert and conversing appropriately, NAD Respiratory: CTAB, no wheeze, no increased work of breathing Cardiovascular: HRRR, no MGR, no LE edema GI: S, NT, ND, +BS Skin/Integumen: warm/dry Other: Medications Current Facility-Administered Medications Medication Dose Route Frequency Provider Last Rate Last Admin Current Facility-Administered Medications Medication Dose Route Frequency Provider Last Rate Last Admin amLODIPine (NORVASC) tablet 5 mg 5 mg Oral Daily Fawad Reardon DO 5 mg at 06/11/24 0907 aspirin EC tablet 81 mg 81 mg Oral Daily Fawad Reardon DO 81 mg at 06/11/24 0907 cefTRIAXone (ROCEPHIN) 2 g vial to attach to NS 100 ml bag for ADULTS or NS 50 ml bag for PEDS 2 g Intravenous Q24H Fawad Reardon DO levothyroxine (SYNTHROID/LEVOTHROID) tablet 88 mcg 88 mcg Oral Daily Fawad Reardon DO 88 mcg at 06/11/24 0907 sodium chloride (PF) 0.9% PF flush 3 mL 3 mL Intracatheter Q8H Fawad Reardon DO Data Recent Labs Lab 06/11/24 0703 WBC 9.8 HGB 9.0* MCV 93 PLT 308 NA 135 POTASSIUM 4.9 CHLORIDE 104 CO2 22 BUN 26.9* CR 1.84* ANIONGAP 9 JAIMIE 8.6* GLC 136* Recent Results (from the past 24 hour(s)) XR Surgery RICHARD L/T 5 Min Fluoro w Stills Narrative This exam was marked as non-reportable because it will not be read by a radiologist or a [facility] non-radiologist provider. * Omero Hameed RN - 06/11/2024 6:02 AM CDT Date & Time: 06/10/24, [id number] Surgery/POD#/Admission Date: POD0 cystoscopy w/ right retrograde pyelogram, R ureteral stent placement Hx: HTN, Afib, chronic UPJ obstruction, CKD, TIA Behavior & Aggression: [place] Risk: Yes Orientation: AO4 VS/O2: VSS RA ex HTN Pain Management: PRN Tylenol x1 GI/: Continent BB, adequate UOP w/ dysuria IV/Lines: PIV SL Diet: Tolerating regular Activity Level: SBA w/ cane Anticipated DC Date: Pending * Fawad Arguelles RN - 06/10/2024 11:[address] Wagner approved pt to [place] back to 2. Report called to floor. * Galo Alston MD - 06/10/2024 1:54 PM CDT Transfer Type: [facility] Transfer Triage Note Date of call: 06/10/24 Time of call: 1:55 PM Current Patient Location: [facility] Current Level of Care: ED Vitals: stable Diagnosis: R perinephric stranding possilbe rupture of R intra-renal collecting system after prior stent removal in the interim Reason for requested transfer: Procedure can be done here and not at referring hospital Isolation Needs: None Care everywhere has been updated and reviewed: Yes Necessary images have been sent through PACS: Yes If patient is transferring for specialty care or specific procedure, the specialist required has participated in the transfer call and agreed with need for transfer and anticipated timeline: [facility] physician Dr. Driver discussed case with [facility] urology Dr. Bedoya Transfer accepted: Yes Stability of Patient: Patient is vitally stable, with no critical labs, and will likely remain stable throughout the transfer process Is the patient appropriate for [facility]? No Level of Care Needed: Med Surg Telemetry Needed: None Expected Time of Arrival for Transfer: 0-8 hours Arrival Location: [facility] Recommendations for Management and Stabilization: Not needed Additional Comments: Spoke with Dr. Marcia Driver in [facility].. 84-year-old female with a history of obstructive uropathy from stenosis of unclear etiology, initially stent was placed in [place] earlier this year and pulled in February. Yesterday she presented with right flank pain that was similar to her initial obstructive episode and came to the ED. Urinalysis with white count of 20-50, serum white blood cell count 15.6, lactic acid 0.9, creatinine 1.6 which is baseline since the initial stent was placed, previously to that it was 1.0. CT obtained showing perinephric stranding on the right with a possible intrarenal collecting system rupture. Dr. Valdez initially reached out to the urologist to hold the stent in February at [place] who agreed patient should be admitted for stent placement but no beds there. Started on ceftriaxone and blood cultures drawn. Patient accepted for transfer to [facility]. Dr. Driver updated Dr. Cooper urology at [facility]. Report relayed to [facility] captain Dr. Miguel Fleming and patient placed on the shared [facility] transfer list. Galo Alston MD documented in this encounter H&P Notes * Alexys Maurizio, DO - 06/10/2024 7:11 PM CDT [facility] History and Physical - Hospitalist Service Date of Admission: 06/10/2024 Assessment & Plan Sun Singh is a 84 year old female admitted on 06/10/2024 as a direct admit for obstructive uropathy and possible intrarenal collecting system rupture. Obstructive Uropathy Abdominal Pain, Flank Pain Possible pyelonephritis Leukocytosis CKD Patient is a direct admit for possible intrarenal collecting system rupture. She has a history of pyelonephritis and severe hydronephrosis while in [place] earlier this year and had a stent placed for UPJ ureteral stricture. Stent was then removed in February. She presented to [place] ED 06/10 for acute onset abdominal pain that woke her up from sleeping. CT abdomen showed perinephric stranding on the right and possible intrarenal collecting system rupture. Started on Ceftriaxone and blood cultures drawn. Unable to see UA. Patient transferred to [facility] for likely stent placement. Creatinine at outside ED 1.6. Her creatinine has ranged from 1.2 - 1.7 over the past year. WBC 15.6. - [facility] consulted, recommendations appreciated - Continue Ceftriaxone 2 grams daily on admission - Daily CBC, BMP - PRN Tylenol, oxycodone, and dilaudid Hypertension Patient has not taken her evening losartan today. BP on arrival 180/63. - Holding [employer] losartan and hydrochlorothiazide pending AM BMP - Resume [employer] amlodipine 5 mg daily - Signed and held prn hydralazine for SBP > 180 can be unheld when patient back from OR Hypothyroidism - Synthroid 88 mcg daily Paroxysmal atrial fibrillation History of TIA She is currently on baby aspirin and discontinued Xarelto due to concerns about bleeding risk. She would qualify for DOAC if agreeable. - Continue [employer] aspirin 81 mg Diet: Regular Diet AdultNPO before procedure, regular diet after procedure DVT Prophylaxis: Pneumatic Compression Devices Fisher Catheter: Not present Lines: None Cardiac Monitoring: None Code Status: Full CodeFull Code Clinically Significant Risk Factors Present on Admission # Drug Induced Platelet Defect: home medication list includes an antiplatelet medication # Hypertension: Noted on problem list # Asthma: noted on problem list Disposition Plan Medically Ready for Discharge: Anticipated in 2-4 Days Fawad Reardon DO Hospitalist Service [facility] Securely message with [employer] (more info) Text page via [facility] Paging/Directory Chief Complaint Obstructive Uropathy History is obtained from the patient History of Present Illness 84-year-old female with a history of obstructive uropathy from stenosis of unclear etiology, initially stent was placed in [place] earlier this year and pulled in February. Yesterday she presented with right flank pain that was similar to her initial obstructive episode and came to the ED. Urinalysis with white count of 20-50, serum white blood cell count 15.6, lactic acid 0.9, creatinine 1.6 which is baseline since the initial stent was placed, previously to that it was 1.0. CT obtained showing perinephric stranding on the right with a possible intrarenal collecting system rupture. Dr. Valdez initially reached out to the urologist to hold the stent in February at [place] who agreed patient should be admitted for stent placement but no beds there. Started on ceftriaxone and blood cultures drawn. On arrival to [facility] the patient reports to be doing fair. Her pain is much improved compared toearlier in the day. She is also less nauseous. Currently denies any active chest pain, fevers, chills, or any other symptoms. Confirmed full code status Past Medical History Past Medical History: Diagnosis Date Chronic atrial [...] ENTROPION REPAIR; Surgeon: Benjamin Mckeon MD; Location: [facility] Prior to Admission Medications Prior to Admission Medications Prescriptions Last Dose Informant Patient Reported? Taking? Melatonin 10 MG TABS tablet 06/09/2024 Yes Yes Sig: Take 10 mg by mouth at bedtime. Multiple Vitamins-Minerals (PRESERVISION AREDS 2) CHEW 06/09/2024 Yes Yes Sig: Take 1 tablet by mouth daily. Polyethylene Glycol 400 0.25 % GEL at prn Self Yes Yes Sig: Apply 1-2 drops to eye every 2 hours as needed (dry eyes) Uses Blink brand amLODIPine (NORVASC) 5 MG tablet 06/09/2024 Yes Yes Sig: Take 1 tablet by mouth daily. aspirin 81 MG EC tablet 06/09/2024 Yes Yes Sig: Take 81 mg by mouth daily. hydroCHLOROthiazide 12.5 MG tablet Past Week No Yes Sig: Take 1 tablet (12.5 mg) by mouth daily levothyroxine (SYNTHROID/LEVOTHROID) 88 MCG tablet 06/09/2024 Self Yes Yes Sig: Take 88 mcg by mouth daily losartan (COZAAR) 50 MG tablet 06/09/2024 Self Yes Yes Sig: Take 50 mg by mouth 2 times daily. magnesium oxide (MAG-OX) 400 MG tablet 06/09/2024 Self Yes Yes Sig: Take 400 mg by mouth at bedtime. potassium gluconate 2.5 MEQ tablet 06/09/2024 Yes Yes Sig: Take 2.5 mEq by mouth at bedtime. vitamin D3 (CHOLECALCIFEROL) 50 mcg (2000 units) tablet 06/09/2024 Self Yes Yes Sig: Take 1 tablet by mouth daily Facility-Administered Medications: None Review of Systems The 10 point Review of Systems is negative other than noted in the HPI or here. Social History I have reviewed this patient's social history and updated it with pertinent information if needed. Social History Tobacco Use Smoking status: Never Smokeless tobacco: Never Substance Use Topics Alcohol use: No Drug use: Not Currently Family History Allergies Allergies Allergen Reactions Abdon Inhibitors Levsin Metoprolol Succinate Physical Exam Vital Signs: Temp: 97.8 ??F (36.6 ??C) Temp src: Temporal BP: (!) 153/61 Pulse: 71 Resp: 28 SpO2: 98 % O2 Device: None (Room air) Oxygen Delivery: 7 LPM Weight: 0 lbs 0 oz Constitutional: awake, alert, cooperative, no apparent distress, and appears stated age Eyes: Lids and lashes normal, pupils equal, round and reactive to light, extra ocular muscles intact, sclera clear, conjunctiva normal ENT: Normocephalic, without obvious abnormality, atraumatic Respiratory: No increased work of breathing, good air exchange, clear to auscultation bilaterally, no crackles or wheezing Cardiovascular: Normal apical impulse, regular rate and rhythm, normal S1 and S2, no S3 or S4, and no murmur noted, 1+ bilateral lower extremity edema GI: No scars, normal bowel sounds, soft, non-distended, generalized tenderness to palpation Musculoskeletal: There is no redness, warmth, or swelling of the joints. Neurologic: Awake, alert, oriented to name, place and time. Cranial nerves II- XII are grossly intact. Medical Decision Making 90 MINUTES SPENT BY ME on the date of service doing chart review, history, exam, documentation & further activities per the note. Data PAST 24 HR DATA REVIEWED Imaging results reviewed over the past 24 hrs: Recent Results (from the past 24 hour(s)) XR Surgery RICHARD L/T 5 Min Fluoro w Stills Narrative This exam was marked as non-reportable because it will not be read by a radiologist or a [facility] non-radiologist provider. documented in this encounter Procedure Notes * Keenan Sharpe MD - 06/10/2024 10:13 PM CDT Operative Report: Pre-op Dx: Right ureteropelvic junction obstruction Post-op Dx: Same Procedure: 1. Cystoscopy with right retrograde pyelogram 2. Right ureteral stent placement 3. Intraoperative interpretation of fluroroscopic images Surgeon: Keenan Sharpe MD Anesthesia: Gen Operative indication: The patient has a history of right ureteropelvic junction obstruction. She has previously had right ureteral stent however this was removed due to her concern it was causing hypertension. She presented with right flank pain and stranding around the right kidney concerning for possible infection. She was counseled to undergo right ureteral stent placement to treat her pain and possible infection. She is known to have less than 20% differential function from her right kidney. Description of procedure: After properly identifying the patient and verifying informed consent, the patient was brought to the operating room in stable condition. After induction of anesthesia the patient was placed in lithotomy position and prepped and draped in the usual fashion. The case was begun by inserting a 22F rigid cystoscope into the patient's bladder under direct vision. The urethra was within normal limits. There were no tumors, stones, or diverticuli observed. The right ureteral orifice was identified and intubated with a 6F open ended ureteral catheter over a sensor wire. Contrast was then injected through the ureteral catheter to perform a right retrograde pyelogram. The ureter was of narrow caliber with dilation of the right renal pelvis noted consistent with chronic UPJobstruction. The wire was then advanced to the renal pelvis and I placed a 6 Iraqi by 22 cm double-J ureteral stent over the wire. An excellent proximal coil was visualized in the renal pelvis and the distal coil was visualized in the bladder. The bladder was then emptied via the cystoscope and then the patient was awoken from anesthesia and brought to recovery in stable condition. EBL: None Findings: Stent placement without difficulty. Right ureteropelvic junction obstruction Drains: 6 Iraqi by 22 cm right ureteral stent Specimens: None Complications: None Follow-up: The patient will be monitored with the stent in place. If she tolerates this she may need to undergo chronic stent exchanges. If she does not tolerate the stent, she may need to consider right nephrectomy due to minimally functioning right kidney. Keenan Sharpe MD 10:08 PM 06/10/24 documented in this encounter Consult Notes * Keenan Sharpe MD - 06/10/2024 8:40 PM CDTAssociated Order(s): UROLOGY IP CONSULT Images from the original note were not included. [facility] Inpatient Consultation Note Sun Singh Age: [age] year old Date of : 1940 Date of Admission: 06/10/2024 Reason for consult: Right hydronephrosis and flank pain Requesting physician: Fawad Reardon DO History of Present Illness: 84F with known right UPJ obstruction presented to [facility] earlier today with right flank pain. Imaging revealed right hydronephrosis with perinephric stranding. She is known to have a UPJobstruction and has been managed by Dr. Sage with [facility]. She has undergone right ureteral stent placement but did not tolerate this due to hypertension so the stent was removed. She reports worsening right flank pain over the last 2 days as well as nausea. She has not been able to tolerate significant p.o. intake. She denies any fevers. Lasix renal scan was done approximately 1 month ago showing significant obstruction of the right kidney and less than 20% total differential function from the right kidney. She currently has controlled pain. Past Medical History: Past Medical History: Diagnosis Date Chronic atrial fibrillation (H) Gastro-oesophageal reflux disease H/O Guerra's palsy Hyperlipidemia Hypertension Hypothyroidism Osteopenia PONV (postoperative nausea and vomiting) Sleep apnea Past Surgical History: Past Surgical History: Procedure Laterality Date APPENDECTOMY CHOLECYSTECTOMY COLONOSCOPY DISKECTOMY, LUMBAR, ADDTNL SP HC ENLARGE BREAST WITH IMPLANT LEG SURGERY REPAIR ENTROPION 09/07/2012 Procedure: REPAIR ENTROPION; RIGHT LOWER LID ENTROPION REPAIR; Surgeon: Benjamin Mckeon MD; Location: [facility] Allergies: Allergies Allergen Reactions Abdon Inhibitors Levsin Metoprolol Succinate Review of Systems: Examination: BP (!) 180/63 (BP Location: Left arm) Pulse 69 Temp 98.9 ??F (37.2 ??C) (Oral) Resp 16 [id number] General: Alert and oriented, no distress Respiratory: Breathing unlabored, no audible wheezing Cardiac: Extremities warm and well perfused Abdomen: soft, non tender, non distended Data: Cr 1.6 WBC 15.6 Imaging: CT A/P (06/10/24); personally reviewed: Severe right hydronephrosis with normal caliber ureter suggestive of chronic UPJ obstruction. Perinephric stranding. Impression: 84F with chronic UPJ obstruction. Right flank pain. CKD. Discussed continued observation with risk of ongoing pain, worsening renal failure, UTI. Also discussed cystoscopy with right ureteral stent placement to try to preserve any residual rightrenal function as well as control her pain. She is uncomfortable due to her recent pain and has expressed interest in pursuing replacement of right ureteral stent. She does have a history of hypertension which was apparently correlated with stent placement. Will need to monitor this closely in the postoperative period. If she is unable to to tolerate stent placement she may ultimately require right nephrectomy as her right kidney has less than 20% total differential function. Plan: - cysto, right ureteral stent Keenan Sharpe MD [facility] [phone] documented in this encounter Miscellaneous Notes * Pharmacy-Admission Medication History - Tiffany Fletcher RPH - 06/10/2024 8:59 PM CDT Pharmacist Admission Medication History Admission medication history is complete. The information provided in this note is only as accurateas the sources available at the time of the update. Information Source(s): Patient, Clinic records, and CareEverywhere/SureScripts via in-person Pertinent Information: amlodipine was decreased from 10 mg to 5 mg within the last month. She has not been taking hydrochlorothiazide for the last week or so. She is not taking any blood thinners at this time. Changes made to [employer] medication list: Added: amlodipine, aspirin, melatonin, vitamins Deleted: None Changed: losartan from daily to BID Allergies reviewed with patient and updates made in EHR: yes Medication History Completed By: Tiffany Fletcher RPH 06/10/2024 8:59 PM [employer] Med List Medication Sig Last Dose amLODIPine (NORVASC) 5 MG tablet Take 1 tablet by mouth daily. 06/09/2024 aspirin 81 MG EC tablet Take 81 mg by mouth daily. 06/09/2024 hydroCHLOROthiazide 12.5 MG tablet Take 1 tablet (12.5 mg) by mouth daily Past Week levothyroxine (SYNTHROID/LEVOTHROID) 88 MCG tablet Take 88 mcg by mouth daily 06/09/2024 losartan (COZAAR) 50 MG tablet Take 50 mg by mouth 2 times daily. 06/09/2024 magnesium oxide (MAG-OX) 400 MG tablet Take 400 mg by mouth at bedtime. 06/09/2024 Melatonin 10 MG TABS tablet Take 10 mg by mouth at bedtime. 06/09/2024 Multiple Vitamins-Minerals (PRESERVISION AREDS 2) CHEW Take 1 tablet by mouth daily. 06/09/2024 Polyethylene Glycol 400 0.25 % GEL Apply 1-2 drops to eye every 2 hours as needed (dry eyes) Uses Blink brand at prn potassium gluconate 2.5 MEQ tablet Take 2.5 mEq by mouth at bedtime. 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 for 1 Occurrences starting 06/12/2024 until 06/12/2024 documented as of this encounter Procedures Procedure Name Priority Date/Time Associated Diagnosis Comments CARBAPENEMASE RESISTANT ORGANISM, PCR Routine 06/12/2024 12:25 PM CDT BASIC METABOLIC PANEL Timed 06/12/2024 8:40 AM CDT BASIC METABOLIC PANEL Routine 06/11/2024 7:03 AM CDT CBC WITH PLATELETS Routine 06/11/2024 7: 03 AM CDT XR SURGERY RICHARD FLUORO LESS THAN 5 MIN W STILLS Routine 06/10/2024 10:12 PM CDT CYSTOSCOPY,INSERT URETERAL STENT 06/10/2024 9:36 PM CDT Unknown cause of injury documented in this encounter Results * Carbapenemase Resistant Organism, PCR (06/12/2024 12:25 PM CDT) IMP target DNA Not Detected Not Detected 2023 4:17 PM CDT [facility] Comment:The Xpert Carba-R as say will generate a negative IMP result when testing samples containing IMP-7, IMP-13, or IMP-14 gene sequences. VIM target DNA Not Detected Not Detected 2023 4:17 PM CDT [facility] NDM target DNA Not Detected Not Detected 2023 4:17 PM CDT [facility] KPC target DNA Not Detected Not Detected 2023 4:17 PM CDT [facility] OXA-48 target DNA Not Detected Not Detected 06/12/2024 4:17 PM CDT [facility] Swab RECTUM PART / Unknown Non-blood Collection / Unknown 06/12/2024 12:25 PM CDT 06/12/2024 12:31 PM CDT Narrative [facility] - 06/12/2024 4:17 PM CDT This assay tests for the presence of the following carbapenemase gene sequences: blaKPC, blaNDM, blaVIM, blaIMP and blaOXA-48. If a gene sequence is not detected the gene is absent, altered or below the assay detection level. This assay is intended for use as an aid to infection control in the detection of carbapenem-resistant bacteria and is not intended to guide or monitor treatment of infection. FDA approved assay performed using [employer] GeneXpert(R) real-time PCR. Mayda Pressley MD LAB - MICRO GENERAL ORDERABLES [facility] Inf. Diseases Diag. Lab [address], [address] [place] [address], [facility] * (ABNORMAL) Basic metabolic panel (06/12/2024 8:40 AM CDT) Pathologist [facility] Sodium 138 135 - 145 mmol/L 06/12/2024 9:14 AM CDT LABORATORY Potassium 4.2 3.4 - 5.3 mmol/L 06/12/2024 9:14 AM CDT LABORATORY Chloride 104 98 - 107 mmol/L 06/12[facility]24 [facility] Carbon Dioxide (CO2) 24 22 - 29 mmol/L 06/12/2024 9:14 AM [facility] Anion Gap 10 7 - 15 mmol/L 06/12/2024 9:14 AM T LABORATORY Urea Nitrogen 36.3(H) 8.0 - 23.0 mg/dL 06/12/2024 9:14 AM [facility] Creatinine 1.89(H) 0.51 - 0.95 mg/dL 06/12/2024 9:14 AM [facility] GFR Estimate 26(L) >60 mL/min/1.7 3m2 06/12/2024 9:14 AM [facility] Comment:eGFR calculated usin 2020 CKD-EPI equation. Calcium 9.0 8.8 - 10.4 mg/dL 06/12/2024 9:14 AM [facility] Comment:Reference intervals for this test were updated on 04/11/2024 to reflect our healthy population more accurately. There may be differences in the flagging of prior results with similar values performed with this method. Those prior results can be interpreted in the context of the updated reference intervals. Glucose 102(H) 70 - 99 mg/dL 06/12/2024 9:14 AM [facility] Blood BLOOD SPECIMEN / Unknown Venipuncture / Unknown 06/12/2024 8:40 AM CDT 06/12/2024 8:49 AM CDT Kerry Saavedra DO LAB - BLOOD O RDERABLES LABORATORY [facility] [address] 1[address], [address] [place] [address], [facility] [phone] * (ABNORMAL) CBC with platelets (06/11/2024 7:03 AM CDT) WBC Count 9.8 4.0 - 11.0 10e3/uL 06/11/2024 7:24 AM CDT LABORATORY RBC Count 3.00(L) 3.80 - 5.20 10e6/uL 06/11/2024 7:24 AM CDT LABORATORY Hemoglobin 9.0(L) 11.7 - 15.7 g/dL 06/11/2024 7:24 AM CDT LABORATORY Hematocrit 27.9(L) 35.0 - 47.0 % 06/11/2024 7:24 AM CDT LABORATORY MCV 93 78 - 100 fL 06/11/2024 7:24 AM CDT LABORATORY MCH 30.0 26.5 - 33.0 pg 06/11/2024 7:24 AM CDT LABORATORY MCHC 32.3 31.5 - 36.5 g/dL 06/11/2024 7:24 AM CDT LABORATORY RDW 15.5(H) 10.0 - 15.0 % 06/11/2024 7:24 AM CDT LABORATORY Platelet Count 308 150 - 450 10e3/uL 06/11/2024 7:24 AM CDT LABORATORY Blood STRUCTURE OF RIGHT HAND / Unknown Venipuncture / Unknown 06/11/2024 7:03 AM CDT 06/11/2024 7:22 AM CDT Fawad Reardon DO LAB - BLOOD ORDERABL ES LABORATORY [facility] [address], [address] [place] [address], [facility] [phone] * (ABNORMAL) Basic metabolic panel (06/11/2024 7:03 AM CDT) Sodium 135 135 - 145 mmol/L 06/11/2024 7:48 AM CDT LABORATORY Potassium 4.9 3.4 - 5.3 mmol/L 06/11/2024 7:48 AM CDT LABORATORY Chloride 104 98 - 107 mmol/L 06/11/2024 7:48 AM CDT LABORATORY Carbon Dioxide (CO2) 22 22 - 29 mmol/L 06/11/2024 7:48 AM CDT LABORATORY Anion Gap 9 7 - 15 mmol/L 06/11/2024 7:48 AM CDT LABORATORY Urea Nitrogen 26.9(H) 8.0 - 23.0 mg/dL 06/11/2024 7:48 AM CDT LABORATORY Creatinine 1.84(H) 0.51 - 0.95 mg/dL 06/11/2024 7:48 AM CDT LABORATORY GFR Estimate 27(L) >60 mL/min/1.7 3m2 06/11/2024 7:48 AM CDT LABORATORY Comment:eGFR calculated usin 2020 CKD-EPI equation. Calcium 8.6(L) 8.8 - 10.4 mg/dL 06/11/2024 7:48 AM CDT LABORATORY Comment:Reference intervals for this test were updated on 04/11/2024 to reflect our healthy population more accurately. There may be differences in the flagging of prior results with similar values performed with this method. Those prior results can be interpreted in the context of the updated reference intervals. Glucose 136(H) 70 - 99 mg/dL 06/11/2024 7:48 AM CDT LABORATORY Blood STRUCTURE OF RIGHT HAND / Unknown Venipuncture / Unknown 06/11/2024 7:03 AM CDT 06/11/2024 7:21 AM CDT Fawad Reardon DO LAB - BLOOD ORDERABL ES LABORATORY [facility] [address], [address] [place] [address], [facility] [phone] * XR Surgery RICHARD L/T 5 Min Fluoro w Stills (06/10/2024 10:12 PM CDT) Narrative [facility] - 06/10/2024 10:13 PM CDT This exam was marked as non-reportable because it will not be read by a radiologist or a [facility] non-radiologist provider. Keenan Sharpe MD IMG DIAGNO STIC IMAGING ORDERABLES [facility] documented in this encounter Visit Diagnoses Diagnosis Urinary tract infection without hematuria, site unspecified- Primary Urinary tract infection Urinary tract infection, site not specified documented in this encounter Administered Medications Inactive Administered Medications - up to 3 most recent administrations Medication Order MAR Action Action Date Dose Rate Site acetaminophen (TYLENOL) Suppository 650 mg 650 mg, Rectal, EVERY 4 HOURS PRN, mild pain, other, and adjunct with moderate or severe pain or per patient request, Starting on 06/10/24 at 1958, Alternate with ibuprofen if ordered. Maximum acetaminophen dose from all sources = 75 mg/kg/day not to exceed 4 grams/day. acetaminophen (TYLENOL) tablet 650 mg 650 mg, Oral, EVERY 4 HOURS PRN, mild pain, other, and adjunct with moderate or severe pain or per patient request, Starting on 06/10/24 at 1958, Alternate with ibuprofen if ordered. Maximum acetaminophen dose from all sources = 75 mg/kg/day not to exceed 4 grams/day. $Given 06/12/2024 11:19 AM CDT 650 mg $Given 06/11/2024 11:50 PM CDT 650 mg $Given 06/11/2024 4:12 PM CDT 650 mg amLODIPine (NORVASC) tablet 5 mg 5 mg, Oral, DAILY, First dose on 06/11/24 at 0900 $Given 06/12/2024 8:07 AM CDT 5 mg $Given 06/11/2024 9:07 AM CDT 5 mg aspirin EC tablet 81 mg 81 mg, Oral, DAILY, First dose on 06/11/24 at 0900, DO NOT CRUSH. $Given 06/12/2024 8:07 AM CDT 81 mg $Given 06/11/2024 9:07 AM CDT 81 mg cefTRIAXone (ROCEPHIN) 2 g vial to attach to NS 100 ml bag for ADULTS or NS 50 ml bag for PEDS Routine, 2 g, Intravenous, EVERY 24 HOURS, First dose on 06/11/24 at 1500, Indications: Pyelonephritis $New Bag 06/11/2024 3:12 PM CDT 2 g hydrALAZINE (APRESOLINE) injection 10 mg 10 mg, Intravenous, EVERY 6 HOURS PRN, high blood pressure, SBP > 180, Administer over 1 Minutes, Starting on 06/10/24 at 2310 HYDROmorphone (DILAUDID) injection 0.2-0.5 mg 0.2-0.5 mg, Intravenous, EVERY 2 HOURS PRN, severe pain, Starting on 06/10/24 at 2038 lactated ringers infusion at 10 mL/hr, Intravenous, CONTINUOUS, IF patient NOT on dialysis., Pre-procedure, Starting on 06/10/24 at 2130, Until 06/10/24 at 2307 $New Bag 06/10/2024 9:14 PM CDT 10 mL/hr levothyroxine (SYNTHROID/LEVOTHROID) tablet 88 mcg 88 mcg, Oral, DAILY, First dose on 06/11/24 at 0900, Separate oral administration of iron- or calcium-containing products and levothyroxine by at least 4 hours. $Given 06/12/2024 8:07 AM CDT 88 mcg $Given 06/11/2024 9:07 AM CDT 88 mcg melatonin tablet 10 mg 10 mg, Oral, AT BEDTIME PRN, sleep, Starting on 06/10/24 at 2005, Do not give unless at least 6 hours of uninterrupted sleep is expected. If patient has multiple medications ordered PRN sleep/insomnia, offer melatonin first. $Given 06/11/2024 11:50 PM CDT 10 mg $Given 06/11/2024 12:37 AM CDT 10 mg naloxone (NARCAN) injection 0.2 mg 0.2 mg, Intravenous, EVERY 2 MIN PRN, opioid reversal, Starting on 06/10/24 at 1959, Administer intravenous route when available and notify [...] 2 MIN PRN, opioid reversal, Starting on 06/10/24 at 1958, Administer intramuscular if an intravenous route is [...] 2 MIN PRN, opioid reversal, Starting on 06/10/24 at 1958, Administer intravenous route when available and notify [...] 2 MIN PRN, opioid reversal, Starting on 06/10/24 at 1958, Administer intramuscular if an intravenous route is [...] have not improved after 4 naloxone doses. senna-docusate (SENOKOT-S/PERICOLACE) 8.6-50 MG per tablet 1 tablet 1 tablet, Oral, 2 TIMES DAILY PRN, constipation, Starting on 06/10/24 at 1958, If no bowel movement in 24 hours, [...] 2 TIMES DAILY PRN, constipation, Starting on 06/10/24 at 1958, IF more than 1 constipation PRN medication is ordered, administer step-alegria as indicated, moving to the next step ONLY if prior step ineffective. Step 1: senna-docusate (SENOKOT-S; PERICOLACE) OR bisacodyl (DULCOLAX) EC tablet Step 2: polyethylene glycol (MIRALAX/GLYCOLAX) Step 3: bisacodyl (DULCOLAX) suppository Step 4: enema Hold for loose stools. sodium chloride (PF) 0.9% PF flush 3 mL 3 mL, Intracatheter, EVERY 8 HOURS, First dose on 06/10/24 at 2000, to lock peripheral IV dormant line $Given 06/11/2024 9:42 PM CDT 3 mLs $Given 06/11/2024 3:48 PM CDT 3 mLs $Given 06/11/2024 3:12 PM CDT 3 mLs documented in this encounter Active and Recently Administered Medications Times are shown in CDT. Scheduled Medication Order 06/10/2024 06/11/2024 06/12/2024 amLODIPine (NORVASC) tablet 5 mg 5 mg, Oral, DAILY, First dose on 06/11/24 at 0900 0907 ($Given - Provider: Rekha Marques RN) 0807 ($Given - Provider: Patrick Colorado RN) aspirin EC tablet 81 mg 81 mg, Oral, DAILY, First dose on 06/11/24 at 0900, DO NOT CRUSH. 0907 ($Given - Provider: Rekha Marques RN) 0807 ($Given - Provider: Patrick Colorado RN) cefTRIAXone (ROCEPHIN) 2 g vial to attach to NS 100 ml bag for ADULTS or NS 50 ml bag for PEDS Routine, 2 g, Intravenous, EVERY 24 HOURS, First dose on 06/11/24 at 1500, Indications: Pyelonephritis 1512 ($New Bag - Provider: Rekha Marques RN) 1500 (Canceled Entry - Provider: Orders Generic Provider - Comment: Automatically canceled at discontinue of medication order) levothyroxine (SYNTHROID/LEVOTHROID) tablet 88 mcg 88 mcg, Oral, DAILY, First dose on 06/11/24 at 0900, Separate oral administration of iron- or calcium-containing products and levothyroxine by at least 4 hours. 0907 ($Given - Provider: Rekha Marques RN) 0807 ($Given - Provider: Patrick Colorado RN) sodium chloride (PF) 0.9% PF flush 3 mL 3 mL, Intracatheter, EVERY 8 HOURS, First dose on 06/10/24 at 2000, to lock peripheral IV dormant line 2053 (Not Given - Provider: Omero Banttari, RN - Reason: Patient not available)2058 (Auto Hold - Provider: Orders Generic Provider - Reason: Transfer to a procedural area)230 (Unhold - Provider: Orders Generic Provider) 0509 (Not Given - Provider: Omero Hameed RN - Reason: Patient sleeping)1512 ($Given - Provider: Rekha Marques RN)1548 ($Given - Provider: Judith Reardon, SOHAM)2142 ($Given - Provider: Omero Hameed RN) 0512 (Not Given - Provider: Omero Hameed RN - Reason: Patient sleeping)1254 (Not Given - Provider: Patrick Colorado RN - Reason: Loss of IV access) Continuous Medication Order 06/10/2024 06/11/2024 06/12/2024 lactated ringers infusion (CANCELED) at 10 mL/hr, Intravenous, CONTINUOUS, IF patient NOT on dialysis., Pre-procedure, Starting on 06/10/24 at 2130, Until 06/10/24 at 2307 2114 ($New Bag - Provider: Fawad Arguelles RN)2313 (Stopped - Provider: Omero Hameed RN) PRN Medication Order 06/10/2024 06/11/2024 06/12/2024 acetaminophen (TYLENOL) Suppository 650 mg(Linked Group 1) 650 mg, Rectal, EVERY 4 HOURS PRN, mild pain, other, and adjunct with moderate or severe pain or per patient request, Starting on 06/10/24 at 1958, Alternate with ibuprofen if ordered. Maximum acetaminophen dose from all sources = 75 mg/kg/day not to exceed 4 grams/day. 2058 (Auto Hold - Provider: Orders Generic Provider - Reason: Transfer to a procedural area)230 (Unhold - Provider: Orders Generic Provider) 0255 (See Alternative - Provider: Omero Hameed RN)1612 (See Alternative - Provider: Lulu Tyson)2350 (See Alternative - Provider: Omero Hameed RN) 1119 (See Alternative - Provider: Yani Espana RN) acetaminophen (TYLENOL) tablet 650 mg(Linked Group 1) 650 mg, Oral, EVERY 4 HOURS PRN, mild pain, other, and adjunct with moderate or severe pain or per patient request, Starting on 06/10/24 at 1957, Alternate with ibuprofen if ordered. Maximum acetaminophen dose from all sources = 75 mg/kg/day not to exceed 4 grams/day. 2058 (Auto Hold - Provider: Orders Generic Provider - Reason: Transfer to a procedural area)2306 (Unhold - Provider: Orders Generic Provider) 0255 ($Given - Provider: Omero Hameed, SOHAM)1612 ($Given - Provider: Lulu Tyson)2350 ($Given - Provider: Omero Hameed, RN) 1119 ($Given - Provider: Yani Espana RN) calcium carbonate (TUMS) chewable tablet 1,000 mg 1,000 mg, Oral, 4 TIMES DAILY PRN, heartburn, Starting on 06/10/24 at 1957 2058 (Auto Hold - Provider: Orders Generic Provider - Reason: Transfer to a procedural area)2306 (Unhold - Provider: Orders Generic Provider) hydrALAZINE (APRESOLINE) injection 10 mg 10 mg, Intravenous, EVERY 6 HOURS PRN, high blood pressure, SBP > 180, Administer over 1 Minutes, Starting on 06/10/24 at 2310 HYDROmorphone (DILAUDID) injection 0.2-0.5 mg 0.2-0.5 mg, Intravenous, EVERY 2 HOURS PRN, severe pain, Starting on 06/10/24 at 2037 2058 (Auto Hold - Provider: Orders Generic Provider - Reason: Transfer to a procedural area)2306 (Unhold - Provider: Orders Generic Provider) lidocaine (LMX4) cream Topical, EVERY 1 HOUR PRN, pain, with VAD insertion, Starting on 06/10/24 at 1957, Apply at least 30 minutes prior to VAD insertion in divided doses as needed for size of site for insertion. MAX Dose: 2.5 g (?? of 5 g tube) Do NOT give if patient has a history of allergy to any local anesthetic or any kip product. Do NOT use both lidocaine intradermal/subcutaneou s injection and the lidocaine cream on the same site. 2058 (Auto Hold - Provider: Orders Generic Provider - Reason: Transfer to a procedural area)2306 (Unhold - Provider: Orders Generic Provider) lidocaine 1 % 0.1-1 mL 0.1-1 mL, Other, EVERY 1 HOUR PRN, mild pain with VAD insertion, Starting on 06/10/24 at 1958, MAX dose 1 mL subcutaneous OR intradermal along the side of the vein in divided doses as needed for VAD insertion. Do NOT give if patient has a history of allergy to any local anesthetic or any kip product. Do NOT use both lidocaine intradermal/subcutaneou s injection and the lidocaine cream on the same site. 2058 (Auto Hold - Provider: Orders Generic Provider - Reason: Transfer to a procedural area)2306 (Unhold - Provider: Orders Generic Provider) melatonin tablet 10 mg 10 mg, Oral, AT BEDTIME PRN, sleep, Starting on 06/10/24 at 2005, Do not give unless at least 6 hours of uninterrupted sleep is expected. If patient has multiple medications ordered PRN sleep/insomnia, offer melatonin first. 2058 (Auto Hold - Provider: Orders Generic Provider - Reason: Transfer to a procedural area)2306 (Unhold - Provider: Orders Generic Provider) 0037 ($Given - Provider: Adilene Richards RN)2350 ($Given - Provider: Omero Hameed RN) naloxone (NARCAN) injection 0.2 mg(Linked Group 2) 0.2 mg, Intravenous, EVERY 2 MIN PRN, opioid reversal, Starting on 06/10/24 at 1958, Administer intravenous route when available and notify [...] have not improved after 4 naloxone doses. 2058 (Auto Hold - Provider: Orders Generic Provider - Reason: Transfer to a procedural area)2306 (Unhold - Provider: Orders Generic Provider) naloxone (NARCAN) injection 0.2 mg(Linked Group 2) 0.2 mg, Intramuscular, EVERY 2 MIN PRN, opioid reversal, Starting on 06/10/24 at 1958, Administer intramuscular if an intravenous route is [...] have not improved after 4 naloxone doses. 2058 (Auto Hold - Provider: Orders Generic Provider - Reason: Transfer to a procedural area)2306 (Unhold - Provider: Orders Generic Provider) naloxone (NARCAN) injection 0.4 mg(Linked Group 2) 0.4 mg, Intravenous, EVERY 2 MIN PRN, opioid reversal, Starting on 06/10/24 at 1958, Administer intravenous route when available and notify [...] have not improved after 4 naloxone doses. 2058 (Auto Hold - Provider: Orders Generic Provider - Reason: Transfer to a procedural area)2306 (Unhold - Provider: Orders Generic Provider) naloxone (NARCAN) injection 0.4 mg(Linked Group 2) 0.4 mg, Intramuscular, EVERY 2 MIN PRN, opioid reversal, Starting on 06/10/24 at 1959, Administer intramuscular if an intravenous route is [...] have not improved after 4 naloxone doses. 2058 (Auto Hold - Provider: Orders Generic Provider - Reason: Transfer to a procedural area)2306 (Unhold - Provider: Orders Generic Provider) oxyCODONE (ROXICODONE) tablet 5 mg 5 mg, Oral, EVERY 4 HOURS PRN, severe pain, IF pain not managed with non-pharmacological and non-opioid interventions, Starting on 06/10/24 at 1957, May use concomitant with non-opioid analgesics. 2058 (Auto Hold - Provider: Orders Generic Provider - Reason: Transfer to a procedural area)2306 (Unhold - Provider: Orders Generic Provider) oxyCODONE IR (ROXICODONE) half-tab 2.5 mg 2.5 mg, Oral, EVERY 4 HOURS PRN, moderate pain, IF pain not managed with non-pharmacological and non-opioid interventions, Starting on 06/10/24 at 1958, May use concomitant with non-opioid analgesics. 2058 (Auto Hold - Provider: Orders Generic Provider - Reason: Transfer to a procedural area)2306 (Unhold - Provider: Orders Generic Provider) senna-docusate (SENOKOT-S/PERICOLACE) 8.6-50 MG per tablet 1 tablet(Linked Group 3) 1 tablet, Oral, 2 TIMES DAILY PRN, constipation, Starting on 06/10/24 at 1958, If no bowel movement in 24 hours, increase to 2 tablets by mouth. IF more than 1 constipation PRN medication is ordered, administer step-alegria as indicated, moving to the next step ONLY if prior step ineffective. Step 1: senna-docusate (SENOKOT-S; PERICOLACE) OR bisacodyl (DULCOLAX) EC tablet Step 2: polyethylene glycol (MIRALAX/GLYCOLAX) Step 3: bisacodyl (DULCOLAX) suppository Step 4: enema Hold for loose stools. 2058 (Auto Hold - Provider: Orders Generic Provider - Reason: Transfer to a procedural area)2306 (Unhold - Provider: Orders Generic Provider) senna-docusate (SENOKOT-S/PERICOLACE) 8.6-50 MG per tablet 2 tablet(Linked Group 3) 2 tablet, Oral, 2 TIMES DAILY PRN, constipation, Starting on 06/10/24 at 1957, IF more than 1 constipation PRN medication is ordered, administer step-alegria as indicated, moving to the next step ONLY if prior step ineffective. Step 1: senna-docusate (SENOKOT-S; PERICOLACE) OR bisacodyl (DULCOLAX) EC tablet Step 2: polyethylene glycol (MIRALAX/GLYCOLAX) Step 3: bisacodyl (DULCOLAX) suppository Step 4: enema Hold for loose stools. 2058 (Auto Hold - Provider: Orders Generic Provider - Reason: Transfer to a procedural area)2306 (Unhold - Provider: Orders Generic Provider) sodium chloride (PF) 0.9% PF flush 3 mL 3 mL, Intracatheter, EVERY 1 MIN PRN, line flush, other, to ensure patency or to lock dormant line, Starting on 06/10/24 at 1957 2058 (Auto Hold - Provider: Orders Generic Provider - Reason: Transfer to a procedural area)2306 (Unhold - Provider: Orders Generic Provider) Linked Groups Order Group 1: acetaminophen (TYLENOL) tablet 650 mgJump to med 650 mg, Oral, EVERY 4 HOURS PRN, mild pain, other, and adjunct with moderate or severe pain or per patient request, Starting on 06/10/24 at 1957, Alternate with ibuprofen if ordered. Maximum acetaminophen dose from all sources = 75 mg/kg/day not to exceed 4 grams/day. Or acetaminophen (TYLENOL) Suppository 650 mgJump to med 650 mg, Rectal, EVERY 4 HOURS PRN, mild pain, other, and adjunct with moderate or severe pain or per patient request, Starting on 06/10/24 at 1957, Alternate with ibuprofen if ordered. Maximum acetaminophen dose from all sources = 75 mg/kg/day not to exceed 4 grams/day. Group 2: naloxone (NARCAN) injection 0.2 mgJump to med 0.2 mg, Intravenous, EVERY 2 MIN PRN, opioid reversal, Starting on 06/10/24 at 1958, Administer intravenous route when available and notify [...] 2 MIN PRN, opioid reversal, Starting on 06/10/24 at 1958, Administer intravenous route when available and notify [...] 2 MIN PRN, opioid reversal, Starting on 06/10/24 at 1958, Administer intramuscular if an intravenous route is [...] 2 MIN PRN, opioid reversal, Starting on 06/10/24 at 195, Administer intramuscular if an intravenous route is [...] improved after 4 naloxone doses. Group 3: senna-docusate (SENOKOT-S/PERICOLACE) 8.6-50 MG per tablet 1 tabletJump to med 1 tablet, Oral, 2 TIMES DAILY PRN, constipation, Starting on 06/10/24 at 1958, If no bowel movement in 24 hours, [...] 2 TIMES DAILY PRN, constipation, Starting on 06/10/24 at 1958, IF more than 1 constipation PRN medication is ordered, administer step-alegria as indicated, moving to the next step ONLY if prior step ineffective. Step 1: senna-docusate (SENOKOT-S; PERICOLACE) OR bisacodyl (DULCOLAX) EC tablet Step 2: polyethylene glycol (MIRALAX/GLYCOLAX) Step 3: bisacodyl (DULCOLAX) suppository Step 4: enema Hold for loose stools. documented in this encounter Additional Health Concerns Infection Onset Date Last Indicated Resolved Time Rule Out Leni auris 06/12/2024 06/12/2024 Rule Out CP-CRE 06/12/2024 06/12/2024 06/12/2024 4 :17 PM CDT documented as of this encounter Care Teams Nanotechnology Technician Relationship Specialty Start Date End Date Irma Mandujano MD [facility] [place] [address] [address] PCP - General Family Medicine 02/23/24 documented as of this encounter
--- OUTSIDE RECORDS SUMMARY | 2024-06-13 02:47 | XMS_ITS | Clinical Summary ---
Author Organization [place] Address [address] [place] [address] Care Team Providers Care Cold Rolling Machine Setter Name Role Phone Irma Mandujano MD Primary Care Provider [phone] Allergies Active Allergy Reactions Criticality Noted Date Comments Abdon Inhibitors 09/07/2012 Levsin 09/07/2012 Metoprolol Succinate 09/07/2012 Medications Medication Sig Dispensed Refills Start Date End Date Status vitamin D3 (CHOLECALCIFEROL) 50 mcg (2000 units) tablet Take 1 tablet by mouth daily Active levothyroxine (SYNTHROID/LEVOTHROI D) 88 MCG tablet Take 88 mcg by mouth daily Active losartan (COZAAR) 50 MG tablet Take 50 mg by mouth 2 times daily. Active magnesium oxide (MAG-OX) 400 MG tablet Take 400 mg by mouth at bedtime. Active Polyethylene Glycol 400 0.25 % GEL Apply 1-2 drops to eye every 2 hours as needed (dry eyes) Uses Blink brand Active hydroCHLOROthiazide 12.5 MG tabletIndications:Es sential hypertension Take 1 tablet (12.5 mg) by mouth daily 30 tablet 02/18/2024 Active amLODIPine (NORVASC) 5 MG tablet Take 1 tablet by mouth daily. 05/15/2024 Active aspirin 81 MG EC tablet Take 81 mg by mouth daily. Active Melatonin 10 MG TABS tablet Take 10 mg by mouth at bedtime. Active potassium gluconate 2.5 MEQ tablet Take 2.5 mEq by mouth at bedtime. Active Multiple Vitamins-Minerals (PRESERVISION AREDS 2) CHEW Take 1 tablet by mouth daily. Active cephALEXin (KEFLEX) 500 MG capsuleIndications:U rinary tract infection without hematuria, site unspecified Take 1 capsule (500 mg) by mouth 2 times daily for 5 days. 10 capsule 06/12/2024 06/17/2024 Active Active Problems Problem Noted Date Diagnosed Date Urinary tract infection 06/10/2024 Diaphragmatic hernia 02/17/2024 Edema 02/17/2024 Overview: echo w/ EF 60% 01/31 Vitamin D deficiency 02/17/2024 Renal insufficiency 02/17/2024 Hypertensive urgency 02/17/2024 Anemia, unspecified type 02/17/2024 Ureteral stent present 02/17/2024 Asthma 02/16/2024 CHI (closed head injury) 02/16/2024 Mass of right lung 02/16/2024 TIA (transient ischemic attack) 02/16/2024 Anemia 12/24/2023 Hydronephrosis with ureteral stricture, not elsewhere classified 12/24/2023 shelter current use of anticoagulant Atrial fibrillation, unspecified type 12/18/2022 Hypertensive kidney disease, stage V 01/05/2022 Aortic valve regurgitation 12/08/2021 Mitral valve regurgitation 12/08/2021 Gastroesophageal reflux disease without esophagi tis 10/24/2021 Chronic fibrosis of lung 10/23/2021 Essential hypertension 07/31/2021 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 [place] continues to confirm no change 2019 Arthritis of left foot 05/24/2018 Adjustment disorder with mixed anxiety and depre ssed mood 06/30/2015 Insomnia, unspecified 01/26/2008 Encounters Date Type Department Care Team Description 06/10/2024 9:45 PM CDT - 06/10/2024 11:00 PM [facility] [address], [address] [place] [address] Keenan Sharpe MD Cystoscopy, Right Retrograde Pyelogram with Right ureteral stent placement 06/10/2024 9:34 PM CDT [facility] [address], [address] [place] [phone] BernardFatoumata ochoa MD 06/10/2024 6:54 PM CDT - 06/12/2024 2:30 PM CDT Hospital Encounter [facility] Surgery [address] [phone] Fawad Reardon, Urinary tract infection without hematuria, site unspecified (Primary Dx) Discharge Disposition: Home or Self Care 06/10/2024 Care Coordination [facility] - General Medicine & Pediatrics [address] [place] [phone] Galo Alston MD 03/15/2024 12:37 PM CDT - 03/15/2024 11:59 PM CDT Hospital Encounter M [facility] Imaging [address] [place] [phone] Stone Sage MD Stricture of ureter Discharge [...] Answer Date Recorded Do you have housing? (Ashlyin g is defined as stable permanent housing and does not include staying ouside in a car, in a tent, in an abandoned building, in an overnight long term, or couch-surfing.) Yes 06/10/2024 Are you worried [...] oz) 06/11/2024 7:19 A M CDT Height 160 cm (5' 3) 02/17/2024 10:23 AM CDT Body Mass Index 29.65 02/17/2024 10:23 AM CDT Plan of Treatment Health Maintenance Due Date Last Done Comments ADVANCE CARE PLANNING 1940 ANNUAL REVIEW OF HM ORDERS 1940 ASTHMA ACTION PLAN 1940 ASTHMA CONTROL TEST 1940 DEXA 1940 LIPID 1940 MICROALBUMIN 1940 PARATHYROID 1940 PHOSPHORUS 1940 ALK PHOS 1941 COVID-19 Vaccine (#1) 1945 FALL RISK ASSESSMENT 2005 DTAP/TDAP/TD IMMUNIZATION (1 - Tdap) 01/27/2008 01/26/2008, 02/26/1988 ZOSTER IMMUNIZATION (1 of 2) 03/22/2008 01/26/2008 RSV VACCINE (1 - 1-dose 75+ series) 2015 MEDICARE ANNUAL WELLNESS VISIT 01/05/2023 01/05/2022 PHQ-2 (once per calendar year) 2023 INFLUENZA VACCINE (#1) 2024 6, 06/24/2015, 07/17/2014, Additional history exists BMP 09/11/2024 06/12/2024, 05/28, 02/18/2024, Additional history exists HEMOGLOBIN 12/09/2024 06/11/2024, 02/17/2024 TSH W/FREE T4 REFLEX 02/16/2025 02/17/2024 [...] on patient's age to complete this topic Medical Devices Implanted Type Area Long Term Care Administrator Device Identifier Shelf Expiration Date Model / Serial / Lot Stent Ureteral Polaris Ultra [id number] - [id number] Implanted:Qty : 1 on 06/10/2024 by Keenan Sharpe MD at [facility] Stent Right: Urethra [employer] [id number] 12/12/2026 [id number] / [id number] Procedures Procedure Name Priority Date/Time Associated Diagnosis Comments CARBAPENEMASE RESISTANT ORGANISM, PCR Routine 06/12/2024 12:25 PM CDT BASIC METABOLIC PANEL Timed 06/12/2024 8:40 AM CDT CBC WITH PLATELETS Routine 06/11/2024 7: 03 AM CDT BASIC METABOLIC PANEL Routine 06/11/2024 7:03 AM CDT XR SURGERY RICHARD FLUORO LESS THAN 5 MIN W STILLS Routine 06/10/2024 10:12 PM CDT ANE AIRWAY ETT PERFORMABLE Routine 06/10/2024 9:42 PM CDT CYSTOSCOPY,INSERT URETERAL STENT 06/10/2024 9:36 PM CDT Unknown cause of injury NM RENOGRAM WITH LASIX Routine 2:14 PM CDT Stricture of ureter UA MACROSCOPIC WITH REFLEX TO MICRO AND CULTURE STAT 02/18/2024 11:04 AM CDT TSH WITH FREE T4 REFLEX Add-On 02/17/2024 11:05 AM CDT from Last 3 Months or Most Recently Relevant to Health Maintenance Results * Carbapenemase Resistant Organism, PCR (06/12/2024 [...] of infection. FDA approved assay performed using The [employer] GeneXpert(R) real-time PCR. Mayda Pressley MD LAB - MICRO GENERAL ORDERABLES [facility] IDD LABORATORY [facility] Inf. Diseases Diag. Lab [address] [facility], [address] [place] [address] * (ABNORMAL) Basic metabolic panel (06/12/2024 8:40 AM CDT) Only the most recent of2 resultswithin the time period is included. Sodium 138 135 - 145 mmol/L 06/12/2024 9:14 AM CDT LABORATORY Potassium 4.2 3.4 - 5.3 mmol/L 06/12/2024 9:14 AM CDT LABORATORY Chloride 104 98 - 107 mmol/L 06/12/2024 9:14 AM CDT LABORATORY Carbon Dioxide (CO2) 24 22 - 29 mmol/L 06/12/2024 9:14 AM CDT LABORATORY Anion Gap 10 7 - 15 mmol/L 06/12/2024 9:14 AM CDT LABORATORY Urea Nitrogen 36.3(H) 8.0 - 23.0 mg/dL 06/12/2024 9:14 AM CDT LABORATORY Creatinine 1.89(H) 0.51 - 0.95 mg/dL 06/12/2024 9:14 AM CDT LABORATORY GFR Estimate 26(L) >60 mL/min/1.7 3m2 06/12/2024 9:14 AM [facility] LABORATORY Comment:eGFR calculated us2020 CKD-EPI equation. Calcium 9.0 8.8 - 10.4 mg/dL 06/12/2024 9:14 AM T LABORATORY Comment:Reference intervals for this test were updated on 04/11/2024 to reflect our healthy population more accurately. There may be differences in the flagging of prior results with similar values performed with this method. Those prior results can be interpreted in the context of the updated reference intervals. Glucose 102(H) 70 - 99 mg/dL 06/12/2024 9:14 AM CDT LABORATORY Blood BLOOD SPECIMEN / Unknown Venipuncture / Unknown 06/12/2024 8:40 AM CDT 06/12/2024 8:49 AM CDT Kerry Saavedra DO LAB - BLOOD O RDERABLES LABORATORY [facility] [address] 1[address] floor, [address] [place] [address], [facility] [phone] * (ABNORMAL) CBC with platelets (06/11/2024 7:03 [...] DO LAB - BLOOD ORDERABL ES LABORATORY [facility] Lab [address] floor, [address] [place] [address], [facility] [phone] * XR Surgery RICHARD L/T 5 Min Fluoro w Stills (06/10/2024 10:12 PM CDT) Narrative RADIANT - 06/10/2024 10:13 PM CDT This exam was marked as non-reportable because it will not be read by a radiologist or a [place] non-radiologist provider. Keenan Sharpe MD IMG DIAGNO STIC IMAGING ORDERABLES Performing Organization Address City/[facility]/ZIP Co de Phone Number RADIANT * ANE AIRWAY ETT PERFORMABLE (06/10/2024 9:42 PM CDT) Narrative Omar Head APRN ESTIMATOR AND DRAFTER - 06/10/2024 9:42 PM CDT Omar Head APRN ESTIMATOR AND DRAFTER ? 06/10/2024 ??9:52 PM Airway ? Patient location: [facility] - Operating Room or Procedural Area. ? Procedure Start/Stop Times: 06/10/2024 9:42 PM and 06/10/2024 9:42 PM Staff - ? ESTIMATOR AND DRAFTER: Omar Head APRN ESTIMATOR AND DRAFTER ? Performed By: CRNAIndications and Patient Condition ? Indications for airway management: benji-procedural and airway protection ? Induction type:RSI ? Mask difficulty assessment: 0 - not attempted (RSI for airway protection) Final Airway Details ? Final airway type: endotracheal airway ? Successful airway: ETT - single and Oral Endotracheal Airway Details ? ETT size (mm): 7.0 ? Cuffed: yes ? Successful intubation technique: video laryngoscopy ? VL Blade Size: Hill 3 ? Grade View of Cords: 1 ? Adjucts: stylet ? Position: Center ? Measured from: gums/teeth ? Secured at (cm): 21 ? Bite block used: None Post intubation assessment ? Number of attempts at approach: 1 ? Number of other approaches attempted: 0 ? Secured with: pink tape ? Ease of procedure: easy ? Dentition: Unchanged (Upper denture plate removed in pre-op bay) Medication(s) Administered Medication Administration Time: 06/10/2024 9:42 PM Additional Comments ? RSI for benji-procedural airway protection. Hill 3. 7.0 mm ID endotracheal tube. Fatoumata Wagner MD [place] ANESTHESIA * NM Renogram with Lasix (03/15/2024 2:14 [...] EXAM: NM RENOGRAM WITH LASIX LOCATION: [facility] DATE: 03/15/2024 INDICATION: ??Stricture of [...] EXAM: NM RENOGRAM WITH LASIX LOCATION: [facility] DATE: 03/15/2024 INDICATION: Stricture of [...] the renalfunction Stone Sage MD [facility] [place]LES * (ABNORMAL) UA Macroscopic with [...] Negative mg/dL 02/18/2024 11:33 AM T LABORATORY Specific [place] Urine 1.011 1.003 - 1.035 02/18/2024 11:33 AM T LABORATORY Blood Urine Trace(A) Negative 02/18/2024 11:33 AM T LABORATORY pH Urine 6.5 5.0 - 7.0 02/18/2024 11:33 AM CDT LABORATORY Protein Albumin Urine Negative Negative mg/dL 02/18/2024 11:33 AM T LABORATORY Urobilinogen Urine Normal Normal, 2.0 mg/dL 02/18/2024 11:33 AM CDT LABORATORY Nitrite Urine Negative Negative 02/18/2024 11:33 AM T LABORATORY Leukocyte Esterase Urine Moderate(A) Negative 02/18/2024 [...] NP LAB - URIN E ORDERABLES LABORATORY [facility] [address] 1[address] floor, [address] [place] [address], [facility] [phone] * TSH with free T4 reflex (02/17/2024 11:05 AM CDT) TSH 1.38 0.30 - 4.20 uIU/mL 02/17/2024 2:02 PM CDT LABORATORY Blood BLOOD SPECIMEN / Unknown Venipuncture / Unknown 02/17/2024 11:05 AM CDT 02/17/2024 11:10 AM CDT Benjamin Moss DO LAB - BLOOD O RDERABLES LABORATORY [facility] Lab [address] 1[address] floor, [address] [place] [address], [facility] [phone] from Last 3 Months or Most Recently Relevant to Health Maintenance Additional Health Concerns Infection Onset Date Last Indicated Rule Out Leni auris 06/12/2024 4 Advance Directives For more information, please contact: [phone] * Full Code (Latest Code Status on File) Date Activated Date Inactivated Comments 06/10/2024 7:58 PM 06/12/2024 5:05 PM All basic an d advanced life-sustaining interventions are performed as appropriate Question Answer Comments Code status determined by: Discussion with shilpa reese/ legal decision maker * Full Code Date Activated Date Inactivated Comments 02/17/2024 3:57 PM 02/18/2024 7:29 PM All basic an d advanced life-sustaining interventions are performed as appropriate Question Answer Comments Code status determined by: Discussion with shilpa reese/ legal decision maker Care Teams Cold Rolling Machine Setter Relationship Specialty Start Date End Date Irma Mandujano MD [address] [place] [address] PCP - General Family Medicine 02/23/24
--- OUTSIDE RECORDS SUMMARY | 2024-06-13 02:47 | XMS_ITS | Referral Summary ---
Author Organization [place] Address [address] [place] [address] Care Team Providers Care Cooler Servicer Name Role Phone Irma Mandujano MD Primary Care Provider [phone] Encounters Date Type Department Care Team Description 06/10/2024 6:54 PM CDT - 06/12/2024 2:30 PM CDT Hospital Encounter M [facility] General Surgery [address] [phone] Fawad Reardon, Urinary tract infection without hematuria, site unspecified (Primary Dx) Discharge Disposition: Home or Self Care 06/10/2024 9:34 PM CDT Anesthesia Event [facility] Services [address], [address] [place] [phone] Fatoumata Wagner MD 06/10/2024 9:45 PM CDT - 06/10/2024 11:00 PM CDT Surgery [facility] [address] [place] [phone] Keenan Sharpe MD Cystoscopy, Right Retrograde Pyelogram with Right ureteral stent placement 06/10/2024 Care Coordination [facility] - General Medicine & Pediatrics [address] [place] [phone] Galo Alston MD 03/15/2024 Travel 03/15/2024 12:37 PM CDT - 03/15/2024 11:59 PM CDT Hospital Encounter M [facility] Imaging [address] [place] [phone] Stone Sage MD Stricture of ureter Discharge [...] with ureteral stricture, not elsewhere classified 12/24/2023 [facility] current use of anticoagulant Atrial fibrillation, unspecified type 12/18/2022 Hypertensive kidney disease, stage V 01/05/2022 Aortic valve regurgitation 12/08/2021 Mitral valve regurgitation 12/08/2021 Gastroesophageal reflux disease without esophagi tis 10/24/2021 Chronic fibrosis of lung 10/23/2021 Essential hypertension 07/31/2021 [facility] (current) use of aspirin 07/31/2021 History of falling 06/17/2020 Hyperlipidemia 11/30/2019 Hypothyroidism 11/23/2019 Lung granuloma 03/01/2019 Overview: CT stable [address] [place] continues to confirm no change 2019 Arthritis [...] in an abandoned building, in an overnight half-way, or couch-surfing.) Yes 06/10/2024 Are you worried [...] CDT Plan of Treatment Not on file Medical Devices Implanted Type Area Questioned Documents Examiner Device Identifier Shelf Expiration Date Model / Serial / Lot Stent Ureteral Polaris Ultra [id number] - [id number] Implanted:Qty : 1 on 06/10/2024 by Keenan Sharpe MD at [facility] Stent Right: Urethra [employer] [id number] 12/12/2026 [id number] / / [id number] Procedures Procedure Name Priority Date/Time Associated Diagnosis [...] of infection. FDA approved assay performed using [employer] GeneXpert(R) real-time PCR. Mayda Pressley MD LAB - MICRO GENERAL ORDERABLES [facility]U IDD LABORATORY [facility] Inf. Diseases Diag. Lab [address] [facility], [address] [place] [phone] * (ABNORMAL) Basic metabolic panel (06/12/2024 8:40 [...] 26(L) >60 mL/min/1.7 3m2 06/12/2024 9:14 AM CDT LABORATORY Comment:eGFR calculated usin 2020 CKD-EPI equation. Calcium 9.0 8.8 - 10.4 mg/dL 06/12/2024 9:14 AM CDT LABORATORY Comment:Reference intervals for this [...] [address] floor, [address] [place] [address], [facility] [phone] * (ABNORMAL) CBC with platelets (06/11/2024 7:03 [...] DO LAB - BLOOD ORDERABL ES LABORATORY [facility] Acute Care Lab [address] floor, [address] [place] [address], [facility] [phone] * XR Surgery RICHARD L/T 5 Min Fluoro w Stills (06/10/2024 10:12 PM CDT) Narrative RADIANT - 06/10/2024 10:13 PM CDT This exam was marked as non-reportable because it will not be read by a radiologist or a [place] non-radiologist provider. Keenan Sharpe MD IMG DIAGNO STIC IMAGING ORDERABLES Performing Organization Address City/[facility]/ZIP Co de Phone Number RADIANT * ANE AIRWAY ETT PERFORMABLE (06/10/2024 9:42 PM CDT) Narrative Omar Head APRN FOREPART ROUNDER - 06/10/2024 9:42 PM CDT Omar Head APRN FOREPART ROUNDER ? 06/10/2024 ??9:52 PM Airway ? Patient location: [facility] - Operating Room or Procedural Area. ? Procedure Start/Stop Times: 06/10/2024 9:42 PM and 06/10/2024 9:42 PM Staff - ? FOREPART ROUNDER: Omar Head APRN FOREPART ROUNDER ? Performed By: CRNAIndications and Patient Condition [...] mm ID endotracheal tube. Fatoumata Wagner MD [place] ANESTHESIA * NM Renogram with Lasix (03/15/2024 [...] 80% of the renalfunction Stone Sage MD [facility] ORDERABLES * (ABNORMAL) UA Macroscopic with reflex [...] mg/dL 02/18/2024 11:33 AM CDT LABORATORY Specific [place] Urine 1.011 1.003 - 1.035 02/18/2024 11:33 AM [facility] LABORATORY Blood Urine Trace(A) Negative 02/18/2024 11:33 AM [facility] LABORATORY pH Urine 6.5 5.0 - 7.0 [...] ordered based on laboratory criteria Moy Renteria TESTING ANALYST LAB - URIN E ORDERABLES [facility] Lab [address] floor, [address] [place] [address], [facility] [phone] * TSH with free T4 reflex (02/17/2024 11:05 AM CDT) TSH 1.38 0.30 - 4.20 uIU/mL 02/17/2024 2:02 PM CDT LABORATORY Blood BLOOD SPECIMEN / Unknown Venipuncture / Unknown 02/17/2024 11:05 AM CDT 02/17/2024 11:10 AM CDT Benjamin Moss DO LAB - BLOOD O RDERABLES [facility] Lab [address] floor, [address] [place] [address], [facility] [phone] from Last 3 Months or Most Recently Relevant to Health Maintenance Additional Health Concerns Infection Onset Date Last Indicated Rule Out Leni auris 06/12/2024 4 Advance Directives For more information, please contact: [phone] * Full Code (Latest Code Status on File) Date Activated Date Inactivated Comments 06/10/2024 7:58 PM 06/12/2024 5:05 PM All basic an d advanced life-sustaining interventions are performed as appropriate Question Answer Comments Code status determined by: Discussion with shilpa nt/ legal decision maker * Full Code Date Activated Date Inactivated Comments 02/17/2024 3:57 PM 02/18/2024 7:29 PM All basic an d advanced life-sustaining interventions are performed as appropriate Question Answer Comments Code status determined by: Discussion with shilpa nt/ legal decision maker Care Teams Cooler Servicer Relationship Specialty Start Date End Date Irma Mandujano MD [address] [place] [address] PCP - General Family Medicine 02/23/24
--- OUTSIDE RECORDS SUMMARY | 2024-06-13 02:48 | XMS_ITS | Encounter Summary ---
Author Organization [place] Address [address] [place] [address]. [place] [address] Care Team Providers Care Hand Hide Stretcher Name Role Phone Irma Mandujano MD Primary Care Provider [phone] Encounter Details Date Type Department Care Team (Late st Contact Info) Description 06/10/2024 Care Coordination [facility] - General Medicine & Pediatrics [address] [place] [phone] Galo Alston MD [address] [place] [address] Social History Tobacco Use Types Packs/Day Years [...] Answer Date Recorded Do you have housing? (Housin g is defined as stable permanent housing and does not include staying ouside in a car, in a tent, in an abandoned building, in an overnight nursing home, or couch-surfing.) Yes 06/10/2024 Are you worried [...] on filedocumented in this encounter Care Teams Hand Hide Stretcher Relationship Specialty Start Date End Date Irma Mandujano MD [address] [place] [address] PCP - General Family Medicine 02/23/24 documented as of this encounter
--- OUTSIDE RECORDS SUMMARY | 2024-06-13 02:48 | XMS_ITS | Encounter Summary ---
Author Organization [place] Address [address] [place] [address] Care Team Providers Care Cash Checker Name Role Phone Irma Mandujano MD Primary Care Provider [phone] Encounter Details Date Type Department Care Team [...] on filedocumented in this encounter Care Teams Cash Checker Relationship Specialty Start Date End Date Irma Mandujano MD [address] [place] [address] PCP - General Family Medicine 02/23/24 documented as of this encounter
--- OUTSIDE RECORDS SUMMARY | 2024-06-13 02:48 | XMS_ITS | Data Portability ---
Author Organization [place] - [facility] Address [address] [facility] [address] [address] [place] [address] Care Team Providers Care Program Management Manager Name Role Phone BRIAN HURD Referring Provider [phone] Assessment Encounter Date Assessment Date Assessment LastModified by Organization Details LastModified Time 01/18/2024 01/18/2024 83 Y/O FEMALE, HX OF RT HYDRONEPHROSIS , UTI, EARLY SEPSIS AND PLACEMENT OF A RT URETERAL STENT IN [place]. U/C POS WITH HORTON SENSITIVE ECOLI . NOW BACK TO BASELINE. C.T. 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 REVIEWED EXTENSIVE RECORDS, LABS FROM [place]. PLAN WILL SCHEDULE CYSTO, RT RETROGRADE AND [...] y scan No observ ation record ed. [facility] [address] [place], [address], 03/23/2024 16:15:30 Result Notes None recorded. Problems Name Problem SNOMED Code Status Onset Date Resolution Date Notes Provider Name and Address Organization Details Recorded Time Obstruction of pelviureteric junction 35152147 Active 2023 Stone Sage MD [address] [place] [address], [address], [facility] 22:00:44 Hydronephrosis 63480336 Active 2023 Stone Sage MD [address] [place] [address], [address], [facility] 4 12:46:39 Essential hypertension 36376194 Active 2023 Stone Sage MD [address] [place] [address], [address], [facility] 4 12:46:47 Problem Notes None recorded. Procedures Surgical History None recorded. Imaging Results Imaging Date Name Status LastModified by Organiz ation Details LastModified Time 03/15/2024 [place], kidney scan completed [facility] [address] [place], [address], 03/23/2024 16:15:30 Procedure Notes None recorded. Medical Equipment None Reported. Allergies No known drug allergies Medications Name Sig Start Date Stop Date Status Note LastModified by Organization Details LastModified Time compair xlt compre cmpressr USE DIRECTED 01/17 completed Not Available Not Available Not Available nebulizer tubing [id number] DIRECTED. REPLACE MASK AND TUBING EVERY 6 [...] Updated DateTime 01/18/2024 160.02 cm 29.1 kg/m2 27219.15 g Stone Sage MD [address] [place] [address],[address], [phone] [place] [address] Urolog 01/18/2024 16:03:19 Date Recorded Body height Body mass index (BMI) Body weight Provider Name and Address Organization Details Last Updated DateTime 03/28/2024 160.02 cm 29.1 kg/m2 55646.15 german Sage MD [address] [place] [address] Urology 03/28/2024 16:45:08 Social History Question Answer Notes LastModified by Organizat ion Details LastModified Time Tobacco Smoking Status Never Smoker Stone Sage MD [address] [place] [address], [phone] [place] [address] Urology 01/18/2024 16:04:53 What Is Your Level Of Alcohol Consumption? None Information not available 01/18/2024 What Was The Date Of Your Most Recent Tobacco Screening? 03/28/2024 Information not available 03/28/2024 Sex: Unknown Functional Status None recorded. Mental Status None recorded. Family History Nothing Reported. Medical History Condition Response Other N High Blood Pressure N Kidney Stones N Depression N Sexually Transmitted Infection N Cancer N Bleeding Disorder N Lung Disease N GERD/Acid Reflux N High Cholesterol N Diabetes N Heart Disease N Gynecological HistoryNo gynecological history recorded. Obstetrics History GPAL:G 0 P 0 0 0 0 Immunizations Vaccine Type Date Status Provider Name and Address Organization Details Recorded Time pneumococcal polysaccharide PPV23 09/15/2005 completed Stone Sage MD [address] [place] [address],[address], [address], [facility] 01/18/2024 16:03:41 Pneumococcal conjugate PCV 13 04/20/2017 completed Stone Sage MD [address] [place] [address],[address], [address], [facility] 01/18/2024 16:03:41 zoster live 01/26/2008 completed Stone Sage MD [address] [place] [address],[address], [address], [facility] 01/18/2024 16:03:41 Influenza, high-dose, trivalent, PF 06/24/2015 completed Stone Sage MD [address] [place] [address],[address], [address], [facility] 01/18/2024 16:03:41 Influenza, high-dose, trivalent, PF 07/17/2014 completed Stone Sage MD [address] [place] [address],[address], [address], [facility] 01/18/2024 16:03:41 Influenza, split virus, trivalent, preservative 07/25/2013 completed Stone Sage MD [address] [place] [address],[address], [address], [facility] 01/18/2024 16:03:41 Td (adult), 5 Lf tetanus toxoid, preservative free, adsorbed 01/26/2008 renée Sage MD [address] [place] [address],[address], [address], [facility] 01/18/2024 16:03:41 Past Encounters Encounter ID Performer Location Encounter Start Date Encounter Closed Date Diagnosis/Indication Diagnosis SNOMED-CT Code Diagnosis ICD10 Code [id number] Stone Sage MD [facility] [address] [address] 01/18/2024 15:50:30 01/19/2024 11:20:30 Obstruction of pelviureteric junction 48242597 N13.5 [id number] Stone Sage MD [facility] [address] [place] [address] 03/28/2024 16:36:27 04/07/2024 11:48:32 Obstruction of pelviureteric junction 72336839 N13.5 Hydronephrosis 81377316 N13.30 Essential hypertension 37920343 I10 Health Concerns Section Related Observation LastModified by Organization Detai ls LastModified Time None Recorded Concern Status LastModified by Organization Details LastModified Time None Recorded Advance Directives Directive None Recorded Payers Encounter Date Sequence Insurance Name Policy Number Policy Schaffer Covered Member ID Schaffer Member ID Guarantor Name 01/18/2024 1 [facility] - MEDICARE COST [id number] Sun J MacHacek [id number] Sun J MacHacek 03/28/2024 1 [place] [id number] Sun J MacHacek [id number] Sun J MacHacek Notes Date Note Type Note Provider Name and Address Organization Details Recorded Time 01/18/2024 text/html HPI Notes: 83 YO F HERE FOR HYDRONEPHROSIS FOLLOWUP. WENT INTO ER, FOUND TO HAVE INFECTION AND SEVERE RIGHT HYDRONEPHROSIS. SUSPECTED RT UPJ OBSTRUCTION .STENT PLACED ABOUT 3 WEEKS AGO IN [place]. ECOLI UTI. SPENT 4 DAYS IN THE HOSPITAL..NOW BACK TO BASELINE. NO STENT DISCOMFORT. Stone Sage MD [address] [facility],[address], [place], [address], 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 HAD A STENT PLACED IN [place] AND RESPONDED WELL TO ANTIBIOTICS.. HOWEVER, SHE [...] OPTIONS IN DETAIL. Stone Sage MD [address] [facility],[address], [place], [address], [facility] 03/29/2024 12:47:05 OBGyn Episode No OBEpisode recorded.
--- OUTSIDE RECORDS SUMMARY | 2024-06-13 02:48 | XMS_ITS | Continuity of Care Document ---
Author Organization [place] - [place] [facility], [facility] Address [address] [facility] [place] [address] Care Team Providers Care As400 Analyst Name Role Phone BRIAN HURD Referring Provider [...] y scan No observ ation record ed. [facility] [address] [place], [address], 03/23/2024 16:15:30 Result Notes None recorded. Problems Name Problem SNOMED Code Status Onset Date Resolution Date Notes Provider Name and Address Organization Details Recorded Time Obstruction of pelviureteric junction 29698414 Active 2023 Stone Sage MD [address] [place] [address],[address] [place] [address], [address], [facility] 4 22:00:44 Hydronephrosis 39295106 Active 2023 Stone Sage MD [address] [place] [address],[address], [place], [address], [facility] 4 12:46:39 Essential hypertension 84331305 Active 2023 Stone Sage MD [address] [place] [address],[address], [place], [address], [facility] 12:46:47 Problem Notes None recorded. Medical Equipment None Reported. Allergies No known drug allergies Medications Name Sig Start Date Stop Date Status Note LastModified by Organization Details LastModified Time compair xlt compre cmpressr USE DIRECTED 01/17 completed Not Available Not Available Not Available nebulizer tubing [id number] DIRECTED. REPLACE MASK AND TUBING EVERY 6 [...] Updated DateTime 03/28/2024 160.02 cm 29.1 kg/m2 97973.15 g Stone Sage MD [address] [place] [address],[address], [place], [address] 03/28/2024 16:45:08 Social History Question Answer Notes LastModified by Organizat ion Details LastModified Time Tobacco Smoking Status Never Smoker Stone Sage MD [address] [place] [address],[address], [address], [facility] 01/18/2024 16:04:53 What Is Your Level Of [...] polysaccharide PPV23 09/15/2005 completed Stone Sage MD [address] [place] [address],[address], [address], [facility] 01/18/2024 16:03:41 Pneumococcal conjugate PCV 13 04/20/2017 completed Stone Sage MD [address] [place] [address],[address], [address], [facility] 01/18/2024 16:03:41 zoster live 01/26/2008 completed Stone Sage MD [address] [place] [address],[address] [address], [facility] 01/18/2024 16:03:41 Influenza, high-dose, trivalent, PF 06/24/2015 completed Stone Sage MD [address] [place] [address],[address], [address], [facility] 01/18/2024 16:03:41 Influenza, high-dose, trivalent, PF 07/17/2014 completed Stone Sage MD [address] [place] [address],[address], [address], [facility] 01/18/2024 16:03:41 Influenza, split virus, trivalent, preservative 07/25/2013 completed Stone Sage MD [address] [facility], [place], [address], [facility] 01/18/2024 16:03:41 Td (adult), 5 Lf tetanus toxoid, preservative free, adsorbed 01/26/2008 completed Stone Sage MD [address] [place] [address],[facility] [address], [address], [facility] 01/18/2024 16:03:41 Past Encounters Encounter ID Performer Location Encounter Start Date Encounter Closed Date Diagnosis/Indication Diagnosis SNOMED-CT Code Diagnosis ICD10 Code [id number] Stone Sage MD [facility] [address] [place] [address] 03/28/2024 16:36:27 04/07/2024 11:48:32 Obstruction of pelviureteric junction 13655282 N13.5 Hydronephrosis 63186102 N13.30 Essential hypertension 36180697 I10 Health Concerns Section Related Observation LastModified by Organization Detai ls LastModified Time None Recorded Concern Status LastModified by Organization Details LastModified Time None Recorded Payers Encounter Date Sequence Insurance Name Policy Number Policy Schaffer Covered Member ID Schaffer Member ID Guarantor Name 03/28/2024 1 [employer]IC[place] COST [id number] Sun Medrano [id number] Sun Medrano Notes Date Note Type Note Provider Name and Address Organization Details Recorded Time 03/28/2024 text/html HPI Notes: 83 YO F HX OF EARLY SEPSIS AND RT HYDRONEPHROSIS, 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 HAD A STENT PLACED IN [place] AND RESPONDED WELL TO ANTIBIOTICS.. HOWEVER, SHE [...] REVIEWED OPTIONS IN DETAIL. Stone Sage MD [address] [facility],[address], [place], [address], [facility] 03/29/2024 12:47:05 OBGyn Episode No OBEpisode recorded.
--- OUTSIDE RECORDS SUMMARY | 2024-06-13 02:48 | XMS_ITS | Encounter Summary ---
Author Organization [facility] Address [address] [place] [id number] Care Team Providers Care Human Capital Analyst Name Role Phone Irma Mandujano MD Primary Care Provider [phone] Reason for Visit * Auth/Cert (Routine) Specialty Diagnoses / Procedures Referred By Kayla t Referred To Contact Med Surg Diagnoses dilation of right renal pelvicalyceal septum, needs renal stent Urinary tract infection [facility] [address] [place] [phone] Referral ID Status Reason Start Date Expiration Date Visits Re quested Visits Authorized [id number] 1 1 Encounter Details Date Type Department Care Team (Late st Contact Info) Description 06/10/2024 9:34 PM CDT Anesthesia Event [facility] [address], [address] [place] [phone] Fatoumata Wagner MD [facility] ANESTHESIA [address] [facility] [place] [address] Anesthesia Record Procedure Summary Procedure Name Responsible Anesthesiologist Anesthesia Start Time Anesthesia Stop Time Cystoscopy, Right Retrograde Pyelogram with Right ureteral stent placement (Right: Urethra) Fatoumata Wagner MD 06/10/24213306/10/242221 Events Date Time Event Comment 06/10/20242039 An Start Anesthesia Star t is defined as when the anesthesia provider assumed care, began anesthesia prep, remained continuously present with the patient, and excludes all time for performing the pre-anesthesia evaluation. The Pre-Anesthesia Evaluation was completed before Anesthesia Start. 2135 An Start Data 2135 AN REASSESS I attest that I have identified and re-evaluated the patient immediately before the induction of anesthesia and I am satisfied that the anesthetic plan is suitable for the patient's condition and procedure. The first vital signs recorded are pre- induction. Omar Head APRN CRNA 2137 MD Present 2140 An Induction 2141 An Intubation 2143 Anesthesia Ready for Procedu re 2158 AN INCISION 2215 AN Extubation All extubation criteria met prior to removal. 2217 an stop data 2221 An Stop Electronically signed by Omar Head APRN CRNA on June 10, 2024 10:23 PM Meds Name Total dexamethasone (DECADRON) 4 mg/mL 4 mg fentaNYL 50 mcg/mL 50 mcg lidocaine 2% 100 mg ondansetron 2 mg/mL 4 mg propofol (DIPRIVAN) 10 mg/mL 150 mg phenylephrine (GABY-SYNEPHRINE) injection 200 mcg rocuronium 10 mg/mL 5 mg sugammadex (BRIDION) 200mg/2mL 150 mg succinylcholine 20 mg/mL 80 mg ceFAZolin (ANCEF) IV 2g/20 mL syringe 2 g LR 600 mL * Agents Name O2 N2O Air Exp Sevoflurane Exp Isoflurane Exp Desflurane O2 Delivery Device Ins Sevoflurane Ins Isoflurane Ins Desflurane O2 Auxiliary * Blood No blood administrations on file. Lines, Drains, and Airways Type Details Placement Removal Incision/Surgical Site 09/07/12; 926; Right; Eye 09/07/12926 by Nany Izaguirre RN Peripheral IV 06/10/24; 1900; 20 G ; Anterior, Right; Upper forearm; Other hospital 06/10/24 190 by Fawad Arguelles RN 06/12/24 155 by Inpatient, Nurse ETT Placement Date: 06/10/24; Placement Time: 2141 (created via procedure documentation); Mask Ventilation: 0 (RSI for airway protection); Induction Type: RSI; Ease of Intubation: Easy; Technique: Video laryngoscopy; Tube Size: 7 mm; VL Blade Size: Hill 3; Grade View: 1; Adjucts: Stylet; Placement Person: DI; Attempts: 1 06/10/242141 by Omar Head APRN CRNA 06/10/242215 by Omar Head APRN CRNA documented in this encounter Social History Tobacco [...] of this encounter OR Notes * Anesthesia Postprocedure Evaluation - Bernard, Fatoumata Willis MD - 06/11/2024 6:59 AM CDT Patient: uSn Singh Procedure: Procedure(s): Cystoscopy, Right Retrograde Pyelogram with Right ureteral stent placement Anesthesia Type: General Note: Postop Pain Control: Uneventful Sign Out: Well controlled pain PONV: No Neuro/Psych: Uneventful Sign Out: Acceptable/Baseline neuro status Airway/Respiratory: Uneventful Sign Out: Acceptable/Baseline resp. status CV/Hemodynamics: Uneventful Sign Out: Acceptable CV status; No obvious hypovolemia; No obvious fluid overload Other NRE: DID A NON-ROUTINE EVENT OCCUR? No Last vitals: Vitals Value Taken Time BP 153/61 06/10/24 2300 Temp 36.6 ??C (97.8 ??F) 06/10/24 2300 Pulse 71 06/10/24 2300 Resp 28 06/10/24 2300 SpO2 99 % 06/10/24 2300 Vitals shown include unfiled device data. Electronically Signed By: Fatoumata Wagner MD, MD June 11, 2024 6:59 AM * Anesthesia Procedure Notes - Omar Head APRN EMERGENCY COMMUNICATIONS OPERATOR - 06/10/2024 9:42 PM CDTAssociated Order(s): Airway Airway Patient location: [facility] - Operating Room or Procedural Area. Procedure Start/Stop Times: 06/10/2024 9:42 PM and 06/10/2024 9:42 PM Staff - EMERGENCY COMMUNICATIONS OPERATOR: Omar Head APRN EMERGENCY COMMUNICATIONS OPERATOR Performed By: CRNAIndications and Patient Condition Indications for airway management: benji-procedural and airway protection Induction type:RSI Mask difficulty assessment: 0 - not attempted (RSI for airway protection) Final Airway Details Final airway type: endotracheal airway Successful airway: ETT - single and Oral Endotracheal Airway Details ETT size (mm): 7.0 Cuffed: yes Successful intubation technique: video laryngoscopy VL Blade Size: Hill 3 Grade View of Cords: 1 Adjucts: stylet Position: Center Measured from: gums/teeth Secured at (cm): 21 Bite block used: None Post intubation assessment Number of attempts at approach: 1 Number of other approaches attempted: 0 Secured with: pink tape Ease of procedure: easy Dentition: Unchanged (Upper denture plate removed in pre-op bay) Medication(s) Administered Medication Administration Time: 06/10/2024 9:42 PM Additional Comments RSI for benji-procedural airway protection. Hill 3. 7.0 mm ID endotracheal tube. * Anesthesia Preprocedure Evaluation - Fatoumata Wagner MD - 06/10/2024 8:39 PM CDT Anesthesia Pre-Procedure Evaluation Patient: Sun Singh : 1940 Procedure : Procedure(s): Cystoscopy with ureteral stent placement Past Medical History: Diagnosis Date Chronic atrial fibrillation (H) Gastro-oesophageal reflux disease H/O Guerra's palsy Hyperlipidemia Hypertension Hypothyroidism Osteopenia PONV (postoperative nausea and vomiting) Sleep apnea Past Surgical History: Procedure Laterality Date APPENDECTOMY CHOLECYSTECTOMY COLONOSCOPY DISKECTOMY, LUMBAR, ADDTNL SP HC ENLARGE BREAST WITH IMPLANT LEG SURGERY REPAIR ENTROPION 09/07/2012 Procedure: REPAIR ENTROPION; RIGHT LOWER LID ENTROPION REPAIR; Surgeon: Benjamin Mckeon MD; Location: [facility] Allergies Allergen Reactions Abdon Inhibitors Levsin Metoprolol Succinate Social History Tobacco Use Smoking status: Never Smokeless tobacco: Never Substance Use Topics Alcohol use: No Wt Readings from Last 1 Encounters: 02/17/24 74.8 kg (165 lb) Anesthesia Evaluation Pt has had prior anesthetic. No history of anesthetic complications ROS/MED HX ENT/Pulmonary: (+) sleep apnea, asthma Neurologic: (-) no CVA Cardiovascular: (+) Dyslipidemia hypertension- - - - - dysrhythmias, a-fib, (-) CAD METS/Exercise Tolerance: Hematologic: Musculoskeletal: GI/Hepatic: (+) GERD, Renal/Genitourinary: (+) renal disease, type: CRI, Endo: (+) thyroid problem, hypothyroidism, (-) Type II DM Psychiatric/Substance Use: Infectious Disease: Malignancy: Other: Physical Exam Airway Mallampati: II TM distance: > 3 FB Neck ROM: full Mouth opening: > 3 cm Respiratory Devices and Support Dental no notable dental history (+) Minor Abnormalities - some fillings, tiny chips Cardiovascular cardiovascular exam normal Pulmonary pulmonary exam normal OUTSIDE LABS: CBC: Lab Results Component Value Date WBC 8.4 02/17/2024 HGB 10.4 (L) 02/17/2024 HCT 32.9 (L) 02/17/2024 PLT 329 02/17/2024 BMP: Lab Results Component Value Date NA 139 02/18/2024 NA 138 02/17/2024 POTASSIUM 4.2 02/18/2024 POTASSIUM 4.4 02/17/2024 CHLORIDE 107 02/18/2024 CHLORIDE 104 02/17/2024 CO2 22 02/18/2024 CO2 24 02/17/2024 BUN 18.2 02/18/2024 BUN 15.6 02/17/2024 CR 1.23 (H) 02/18/2024 CR 1.16 (H) 02/17/2024 GLC 87 02/18/2024 GLC 95 02/17/2024 COAGS: No results found for: PTT, INR, FIBR POC: No results found for: BGM, HCG, HCGS HEPATIC: No results found for: ALBUMIN, PROTTOTAL, ALT, AST, GGT, ALKPHOS, BILITOTAL,BILIDIRECT, ANTHONY OTHER: Lab Results Component Value Date JAIMIE 9.1 02/18/2024 TSH 1.38 02/17/2024 Anesthesia Plan ASA Status: 3, emergent NPO Status: NPO Appropriate Anesthesia Type: General. - Airway: ETT Induction: Propofol, Intravenous, RSI. Maintenance: Balanced. Consents Anesthesia Plan(s) and associated risks, benefits, and realistic alternatives discussed. Questions answered and patient/sales promotion representative(s) expressed understanding. - Discussed: - Discussed with: Patient Postoperative Care Pain management: Multi-modal analgesia. PONV prophylaxis: Ondansetron (or other 5HT-3), Dexamethasone or Solumedrol, Background Propofol Infusion Comments: Fatoumata Wagner MD, MD I have reviewed the pertinent notes and labs in the chart from the past 30 days and (re)examined the patient. Any updates or changes from those notes are reflected in this note. documented in this encounter Miscellaneous Notes * Anesthesia Care Transfer Note - Omar Head APRN EMERGENCY COMMUNICATIONS OPERATOR - 06/10/2024 10:22 PM CDT Patient: Sun J Machacek Procedure: Procedure(s): Cystoscopy, Right Retrograde Pyelogram with Right ureteral stent placement Diagnosis: Unknown cause of injury [X58.XXXA] Diagnosis Additional Information: No value filed. Anesthesia Type: General Note: Oropharynx: oropharynx clear of all foreign objects and spontaneously breathing Level of Consciousness: awake Oxygen Supplementation: face mask Level of Supplemental Oxygen (L/min / FiO2): 6 Independent Airway: airway patency satisfactory and stable Dentition: dentition unchanged Vital Signs Stable: post-procedure vital signs reviewed and stable Report to RN Given: handoff report given Patient transferred to: PACU Comments: Neuromuscular blockade reversed with sugammadex, spontaneous respirations, adequate tidal volumes, followed commands to voice, extubated atraumatically, extubated with suction, airway patent after extubation. Oxygen via facemask at 6 liters per minute to PACU. Oxygen tubing connected to wall O2 in PACU, SpO2, NiBP, and EKG monitors and alarms on and functioning, report on patient's clinical status given to COATING TECHNICIAN, RN questions answered. Handoff Report: Identifed the Patient, Identified the Reponsible Provider, Reviewed the pertinent medical history, Discussed the surgical course, Reviewed Intra-OP anesthesia mangement and issues during anesthesia, Set expectations for post-procedure period and Allowed opportunity for questions andacknowledgement of understanding Vitals: Vitals Value Taken Time BP 154/58 Temp Pulse 73 Resp 18 SpO2 100% Electronically Signed By: Omar Head APRN CRNA June 10, 2024 10:22 PM documented in this encounter Plan of Treatment Not on file documented as of this encounter Procedures Procedure Name Priority Date/Time Associated Diagnosis Comments ANE AIRWAY ETT PERFORMABLE Routine 06/10/2024 9:42 PM CDT documented in this encounter Results * ANE AIRWAY ETT PERFORMABLE (06/10/2024 9:42 PM CDT) Narrative Omar Head APRN CRNA - 06/10/2024 9:42 PM CDT Omar Head APRN CRNA ? 06/10/2024 ??9:52 PM Airway ? Patient location: [facility] - Operating Room or Procedural Area. ? Procedure Start/Stop Times: 06/10/2024 9:42 PM and 06/10/2024 9:42 PM Staff - ? EMERGENCY COMMUNICATIONS OPERATOR: Omar Head APRN EMERGENCY COMMUNICATIONS OPERATOR ? Performed By: CRNAIndications and Patient Condition [...] mm ID endotracheal tube. Fatoumata Wagner MD ID ANESTHESIA documented in this encounter Visit Diagnoses Not on filedocumented in this encounter Administered Medications Inactive Administered Medications - up to 3 most recent administrations Medication Order MAR Action Action Date Dose Rate Site ceFAZolin Sodium (ANCEF) injection Routine, Intravenous, PRN, Starting on 06/10/24 at 2134, Anesthesia Intra-op $Given 06/10/2024 9:34 PM CDT 2 g dexAMETHasone (DECADRON) injection Intravenous, PRN, Administer over 1 Minutes, Starting on 06/10/24 at 2156, Anesthesia Intra-op $Given 06/10/2024 9:56 PM CDT 4 mg fentaNYL (PF) (SUBLIMAZE) injection Intravenous, PRN, Administer over 3-5 Minutes, Starting on 06/10/24 at 2141, Anesthesia Intra-op $Given 06/10/2024 9:41 PM CDT 50 mcg lactated ringers infusion Intravenous, CONTINUOUS PRN, Anesthesia Intra-op, Starting on 06/10/24 at 2134, Until 06/10/24 at 2223 $New Bag 06/10/2024 9:34 PM CDT lidocaine 2% injection (MDV) Intravenous, PRN, Starting on 06/10/24 at 2141, Anesthesia Intra-op $Given 06/10/2024 9:41 PM CDT 100 mg ondansetron (ZOFRAN) injection Intravenous, PRN, Administer over 2-5 Minutes, Starting on 06/10/24 at 2156, Anesthesia Intra-op $Given 06/10/2024 9:56 PM CDT 4 mg phenylephrine (GABY-SYNEPHRINE) injection Intravenous, CONTINUOUS PRN, Starting on 06/10/24 at 2154, Anesthesia Intra-op $Bolus 06/10/2024 10:02 PM CDT 100 mcg $New Bag 06/10/2024 9:54 PM CDT 100 mcg propofol (DIPRIVAN) injection 10 mg/mL vial Intravenous, PRN, Starting on 06/10/24 at 2141, Anesthesia Intra-op $Given 06/10/2024 9:41 PM CDT 150 mg rocuronium injection Intravenous, PRN, Starting on 06/10/24 at 2141, Anesthesia Intra-op $Given 06/10/2024 9:41 PM CDT 5 mg succinylcholine (ANECTINE) injection Intravenous, PRN, Starting on 06/10/24 at 2141, Anesthesia Intra-op $Given 06/10/2024 9:41 PM CDT 80 mg sugammadex (BRIDION) injection Intravenous, PRN, Starting on 06/10/24 at 2207, Anesthesia Intra-op $Given 06/10/2024 10:07 PM CDT 150 mg documented in this encounter Care Teams Human Capital Analyst Relationship Specialty Start Date End Date Irma Mandujano MD [facility] [place] [address] [address] PCP - General Family Medicine 02/23/24 documented as of this encounter
--- OUTSIDE RECORDS SUMMARY | 2024-06-13 02:48 | XMS_ITS | Encounter Summary ---
Author Organization [facility] Address [address] [place] [address] Care Team Providers Care Life Skills Worker Name Role Phone Irma Mandujano MD Primary Care Provider [phone] Reason for Visit * Auth/Cert (Routine) Specialty Diagnoses / Procedures Referred By Kayla harris Referred To Contact Med Surg Diagnoses dilation of right renal pelvicalyceal septum, needs renal stent Urinary tract infection Gen Surg [address] [facility] [place] [facility] [place] [address] Referral ID Status Reason Start Date Expiration Date Visits Re quested Visits Authorized [id number] 1 1 Encounter Details Date Type Department Care Team (Late st Contact Info) Description 06/10/2024 9:45 PM CDT - 06/10/2024 11:00 PM CDT Surgery [facility] [address] [place] [id number] Keenan Sharpe MD [facility] [address] [place] [address] Cystoscopy, Right Retrograde Pyelogram with Right ureteral stent placement Surgery Details Date/Time Status Location OR Service Patient Class Case Class Case Type Trauma Case? 06/10/24 9:45 PM Posted OR OR 19 Urology Inpatient NEST 5 - Semi-Urge nt (within 48hrs) Panel 1 Procedure LRB Anes Op Region Wound Class Comments Cystoscopy, Right Retrograde Pyelogram with Right ureteral stent placement Right General Urethra II-Clean Contaminated Surgeon Surgeon Role Service Panel Keenan Sharpe MD Primary Urology 1 documented in this encounter Social History Tobacco [...] Date Recorded Do you have housing? (Kyle g is defined as stable permanent housing and does not include staying ouside in a car, in a tent, in an abandoned building, in an overnight skilled nursing, or couch-surfing.) Yes 06/10/2024 Are you worried [...] Sign Reading Time Taken Comments Blood Pressure 153/61 06/10/2024 11:00 PM CDT Pulse 71 06/10/2024 11:00 PM CDT Temperature 36.6 ??C (97.8 ??F) 06/10/2024 11:00 PM C DT Respiratory Rate 28 06/10/2024 11:00 PM CDT Oxygen Saturation 98% 06/10/2024 11:00 PM CDT Inhaled Oxygen Concentration - - Weight 75.3 kg (166 lb) 06/10/2024 11:00 PM CDT Height - - Body Mass Index 29.65 02/17/2024 10:23 AM CDT documented in this encounter Discharge Summaries * Kerry Saavedra DO - 06/12/2024 10:06 AM CDT [facility] Discharge Summary Hospitalist Date of Admission: 06/10/2024 [...] placement in 02/2024 who was admitted from [place] the ED on 06/10/2024 for management of [...] of pyelonephritis and severe hydronephrosis while in [place] earlier this year and had a stent placed for UPJ ureteral stricture. Stent was then removed in 02/2024. *Presented to [place] ED on 06/10 for acute onset abdominal [...] was started on IV ceftriaxone. Transferred to [facility] for further urologic evaluation. *Seen by Dr. Sharpe of [facility] on admission. Taken to the OR and underwent cystoscopy with right retrograde pyelogram and placement of a right ureteral stent on 06/10 PM. *Maintained on IV ceftriaxone during stay. *UC obtained in ED prior to transfer to [facility] grew >100k ecoli (elder-sensitive), blood cultures were negative at the time of discharge. Discharged on 5 days of Keflex to complete total of 7d treatment course. *Cr stable at 1.8 this stay, which appeared to be within the realm of her baseline. Lytes stable. *[facility] month as advised. Hypertension [...] *Chronic and stable on levothyroxine Kerry Saavedra, Significant Results and Procedures Date of Procedure: [...] IP CONSULT Time Spent on this Encounter I, Kerry Saavedra DO, personally saw the patient today and spent greater than 30 minutes discharging this patient. Discharge Orders Follow Up ([facility]) Follow-up with Dr. Sharpe or Dr. Sage [...] bothersome to tolerate, please alert your urologist. [address] [place] [address]. [phone] You may call with any questions or [...] Infection Prevention - 06/12/2024 9:40 AM CDT CP-AUTOMATIC OVEN OPERATOR and Leni auris screening information This patient was admitted to a hospital or long-term care facility in a high risk area in the prior12 months. and is potentially at a high risk for carrying CP-AUTOMATIC OVEN OPERATOR and/or Leni auris. The [place] Department of Health ([facility]) and CDC recommend that we test this patient to prevent the spread of these organisms within our healthcare facility. Testing is voluntary and includes collecting an axillaand groin swab for C. auris and a rectal swab for CP-AUTOMATIC OVEN OPERATOR. Due to the potential transmission of these [...] Infection Prevention MDRO Sharepoint page. 06/12/2024 Carlton gAuilar, Infection Prevention * Patrick Colorado, RN - 06/12/2024 8:12 AM CDT Pt c/o post nasal drip. Reports symptoms started after her emesis on Wednesday. * Omero Hameed RN - 06/12/2024 6:20 AM CDT Date & Time: 06/11/24, [id number] Surgery/POD#/Admission Date: POD1 cystoscopy w/ right retrograde [...] Reardon RN - 06/11/2024 7:06 PM CDT [id number] Status: Patient admitted on 06/10, now POD#1 [...] 1:58 PM CDT Date & Time: 06/11/24 [id number] Surgery/POD#/Admission Date: POD0 cystoscopy w/ right retrograde [...] PT - 06/11/2024 1:35 PM CDT 06/11/24 0925 Appointment Info Signing Clinician's Name / Credentials [...] Evaluation Time PT Eval, Low Complexity Minutes (61452) 5 Physical Therapy Goals PT Frequency 2x/week [...] dynamic activities to improve functional performance Minutes (27844) 1 Treatment Detail/Skilled Intervention pt greeted semi fowlers in bed. Pt agreeable to therapy session. pt completed sit<>stand Mod I w/ single point cane. Pt left in in bed, all needs in reach.Pt tolerated session well Gait Training Gait Training Minutes (10944) 8 Symptoms Noted During/After Treatment (Gait Training) [...] placement/sequencing, SBA. Neuromuscular Re-education Neuromuscular Re-Education Minutes (45333) 10 Symptoms Noted During/After Treatment increased pain [...] all falls risk precautions as documented by temporary staff accountant while hospitalized.) Total Session Time Timed Code Treatment Minutes 19 Total Session Time (sum of timed and untimed services) 24 * Sunita Gonsales PA-C - 06/11/2024 11:27 AM CDT [facility] Urology Progress Note Assessment & Plan Sun Singh is a 84 year old female who was admitted on 06/10/2024. POD 1 s/p right ureteral stent placement by Dr. Sharpe for UPJ obstruction Plan: -home with stent -follow-up in 1mo for recheck in office, AVS updated [facility] Interval History Feeling quite well this [...] 5 mg 5 mg Oral Daily Fawad Reardon, DO 5 mg at 06/11/24 09 aspirin EC tablet 81 mg 81 mg Oral Daily Fawad Reardon, DO 81 mg at 06/11/24 09 cefTRIAXone (ROCEPHIN) 2 g vial to attach to NS 100 ml bag for ADULTS or NS 50 ml bag for PEDS 2 g Intravenous Q24H Fawad Reardon, DO levothyroxine (SYNTHROID/LEVOTHROID) tablet 88 mcg 88 [...] be read by a radiologist or a [facility] non-radiologist provider. Basic metabolic panel Result Value [...] Kerry Saavedra, - 06/11/2024 10:05 AM CDT [facility] Hospitalist Progress Note Date of Admission: 06/10/2024 Assessment & Plan Sun Singh is a 84 year old female with PMhx of hypertension, paroxysmal A-fib not on chronic anticoagulation, history of TIA, hypothyroidism and history of obstructive uropathy with prior stent placement in 02/2024 who was admitted from [place] the ED on 06/10/2024 for management of obstructive uropathy with concern for possible intrarenal collecting system rupture. She was seen by urology on admission and taken to the OR on 06/10 PM for right ureteral stent placement. Obstructive Uropathy, s/p R ureteral stent placement on 06/10/24 Stage III CKD *Has noted history of pyelonephritis and severe hydronephrosis while in [place] earlier this year and had a stent placed for UPJ ureteral stricture. Stent was then removed in 02/2024. *Presented to [place] ED on 06/10 for acute onset abdominal [...] was started on IV ceftriaxone. Transferred to [facility] for further urologic evaluation. *Seen by Dr. Sharpe of [facility] on admission. Taken to the OR [...] tomorrow (lives at home with spouse in [place]) pending postprocedure course, likely discharge on oral antibiotic pending culture data. Patient's daughter at bedside and supportive of this plan. Questions answered Medically Ready for Discharge: Anticipated Tomorrow Kerry Saavedra, Clinically Significant Risk Factors Present on Admission [...] be read by a radiologist or a [facility] non-radiologist provider. * Omero Hameed RN - 06/11/2024 6:02 AM CDT Date & Time: 06/10/24, 0886-5108 Surgery/POD#/Admission Date: POD0 cystoscopy w/ right retrograde [...] Wagner approved pt to Tx back to 2221. Report called to floor. * Galo [place] MD - 06/10/2024 1:54 PM CDT Transfer Type: [facility] Transfer Triage Note Date of call: 06/10/24 Time of call: 1:55 PM Current Patient Location: [facility] Current Level of Care: ED Vitals: [...] with need for transfer and anticipated timeline: [place] ER physician Dr. Driver discussed case with [facility] urology Dr. Bedoya Transfer accepted: Yes Stability of Patient: Patient is vitally stable, with no critical labs, and will likely remain stable throughout the transfer process Is the patient appropriate for [facility]? No Level of Care Needed: Med Surg Telemetry Needed: None Expected Time of Arrival for Transfer: 0-8 hours Arrival Location: [facility] Recommendations for Management and Stabilization: Not needed Additional Comments: Spoke with Dr. Marcia Driver in [place] ER.. 84-year-old female with a history of obstructive uropathy from stenosis of unclear etiology, initially stent was placed in [place] earlier this year and pulled in February. [...] to hold the stent in February at [place] who agreed patient should be admitted for stent placement but no beds there. Started on ceftriaxone and blood cultures drawn. Patient accepted for transfer to [facility]. Dr. Driver updated Dr. Cooper urology at [facility]. Report relayed to [facility] captain Dr. Miguel Fleming and patient placed on the shared [facility] transfer list. Galo [place] MD documented in this encounter H&P Notes * Fawad Reardon, - 06/10/2024 7:11 PM CDT [facility] History and Physical - Hospitalist Service [...] of pyelonephritis and severe hydronephrosis while in [place] earlier this year and had a stent placed for UPJ ureteral stricture. Stent was then removed in February. She presented to [place] ED 06/10 for acute onset abdominal pain that woke her up from sleeping. CT abdomen showed perinephric stranding on the right and possible intrarenal collecting system rupture. Started on Ceftriaxone and blood cultures drawn. Unable to see UA. Patient transferred to [facility] for likely stent placement. Creatinine at outside ED 1.6. Her creatinine has ranged from 1.2 - 1.7 over the past year. WBC 15.6. - [place] [facility] consulted, recommendations appreciated - Continue Ceftriaxone 2 grams daily on admission - Daily CBC, BMP - PRN Tylenol, oxycodone, and dilaudid Hypertension Patient has not taken her evening losartan today. BP on arrival 180/63. - Holding BODY SHOP WORKER losartan and hydrochlorothiazide pending AM BMP - Resume BODY SHOP WORKER amlodipine 5 mg daily - Signed and held prn hydralazine for SBP > 180 can be unheld when patient back from OR Hypothyroidism - Synthroid 88 mcg daily Paroxysmal atrial fibrillation History of TIA She is currently on baby aspirin and discontinued Xarelto due to concerns about bleeding risk. She would qualify for DOAC if agreeable. - Continue BODY SHOP WORKER aspirin 81 mg Diet: Regular Diet AdultNPO [...] 2-4 Days Fawad Reardon DO Hospitalist Service [facility] Securely message with [employer] (more info) Text page via [employer] Paging/Directory Chief Complaint Obstructive Uropathy History is obtained from the patient History of Present Illness 84-year-old female with a history of obstructive uropathy from stenosis of unclear etiology, initially stent was placed in [place] earlier this year and pulled in February. [...] to hold the stent in February at [place] who agreed patient should be admitted for stent placement but no beds there. Started on ceftriaxone and blood cultures drawn. On arrival to [facility] the patient reports to be doing fair. [...] ENTROPION REPAIR; Surgeon: Benjamin Mckeon MD; Location: [facility] Prior to Admission Medications Prior to Admission [...] be read by a radiologist or a [facility] non-radiologist provider. documented in this encounter Procedure [...] renal pelvis and I placed a 6 Macedonian by 22 cm double-J ureteral stent over [...] difficulty. Right ureteropelvic junction obstruction Drains: 6 Macedonian by 22 cm right ureteral stent Specimens: [...] from the original note were not included. [facility] Inpatient Consultation Note Sun Singh Age: [age] year old Date of : 1940 Date of Admission: 06/10/2024 Reason for consult: Right hydronephrosis and flank pain Requesting physician: Fawad Reardon DO History of Present Illness: 84F with known right UPJ obstruction presented to [facility] earlier today with right flank pain. Imaging revealed right hydronephrosis with perinephric stranding. She is known to have a UPJobstruction and has been managed by Dr. Sage with [facility]. She has undergone right ureteral stent [...] ENTROPION REPAIR; Surgeon: Benjamin Mckeon MD; Location: [facility] Allergies: Allergies Allergen Reactions Abdon Inhibitors Levsin Metoprolol Succinate Review of Systems: Examination: BP (!) 180/63 (BP Location: Left arm) Pulse 69 Temp 98.9 ??F (37.2 ??C) (Oral) Resp 16 PoQ0921% General: Alert and oriented, no distress Respiratory: [...] cysto, right ureteral stent Keenan Sharpe MD [facility] [phone] documented in this encounter Miscellaneous Notes * [facility] Med[facility] 8[facility]59 PM [facility]T Pharmacist Admission Medication History Admission medication history is complete. The information provided in this note is only as accurateas the sources available at the time of the update. Information Source(s): Patient, Clinic records, and [facility] in-person Pertinent Information: amlodipine was decreased from 10 mg to 5 mg within the last month. She has not been taking hydrochlorothiazide for the last week or so. She is not taking any blood thinners at this time. Changes made to [employer] WORK[employer] medication list: Added: amlodipine, aspirin, melatonin, vitamins Deleted: None Changed: losartan from daily to BID Allergies reviewed with patient and updates made in EHR: yes Medication History Completed By: Tiffany Fletcher RPH 06/10/2024 8:59 PM B[employer] WORKER Med List Medication Sig Last Dose amLODIPine [...] of infection. FDA approved assay performed using [employer] GeneXpert(R) real-time PCR. Mayda Pressley MD LAB - MICRO GENERAL ORDERABLES [facility] IDD LABORATORY [facility] Inf. Diseases Diag. Lab [address] [facility] [place] [address], [facility] * (ABNORMAL) Basic metabolic panel (06/12/2024 8:40 AM CDT) Sodium 138 135 - 145 mmol/L 06/12/2024 9:14 AM CDT LABORATORY Potassium 4.2 3.4 - 5.3 mmol/L 06/12/2024 9:14 AM CDT LABORATORY Chloride 104 98 - 107 mmol/L 06/12/2024 9:14 AM CDT LABORATORY Carbon Dioxide (CO2) 24 22 - 29 mmol/L 06/12/2024 9:14 AM T LABORATORY Anion Gap 10 7 - 15 mmol/L 06/12/2024 9:14 AM T LABORATORY Urea Nitrogen 36.3(H) 8.0 - 23.0 mg/dL 06/12/2024 9:14 AM CDT LABORATORY Creatinine 1.89(H) 0.51 - 0.95 mg/dL 06/12/2024 9:14 AM T LABORATORY GFR Estimate 26(L) >60 mL/min/1.7 3m2 06/12/2024 9:14 AM T LABORATORY Comment:eGFR calculated us2020 CKD-EPI equation. Calcium [...] 70 - 99 mg/dL 06/12/2024 9:14 AM T LABORATORY Blood BLOOD SPECIMEN / Unknown Venipuncture / Unknown 06/12/2024 8:40 AM CDT 06/12/2024 8:49 AM CDT Kerry Saavedra DO LAB - BLOOD O RDERABLES LABORATORY [facility] [address], [address] [place] [address], [facility] [phone] * (ABNORMAL) CBC with platelets (06/11/2024 7:03 AM CDT) Pathologist [facility] WBC Count 9.8 4.0 - 11.0 10e3/uL [...] DO LAB - BLOOD ORDERABL ES LABORATORY [facility] [address], [address] [place] [address], [facility] [phone] * (ABNORMAL) Basic metabolic panel (06/11/2024 7:03 AM CDT) [facility] Sodium 135 135 - 145 mmol/L 06/11/2024 [...] 7:48 AM CDT LABORATORY Comment:eGFR calculated usin g 2020 CKD-EPI equation. Calcium 8.6(L) 8.8 - 10.4 mg/dL 06/11/2024 7:48 AM T LABORATORY Comment:Reference intervals for this [...] [facility] [address] floor, [address] [place] [address], [facility] [phone] * XR Surgery RICHARD L/T 5 Min Fluoro w Stills (06/10/2024 10:12 PM CDT) Narrative RADIANT - 06/10/2024 10:13 PM CDT This exam was marked as non-reportable because it will not be read by a radiologist or a [facility] non-radiologist provider. Keenan Sharpe MD IMG DIAGNO STIC IMAGING ORDERABLES RUBY documented in this encounter Visit Diagnoses Diagnosis Urinary tract infection without hematuria, site unspecified- Primary Urinary tract infection Urinary tract infection, site not specified Unknown cause of injury Unspecified accident documented in this encounter Administered Medications Inactive [...] severe pain, Starting on 06/10/24 at 2038 levothyroxine (SYNTHROID/LEVOTHROID) tablet 88 mcg 88 mcg, [...] DAILY PRN, constipation, Starting on 06/10/24 at 195, If no bowel movement in 24 hours, [...] line 2053 (Not Given - Provider: Omero Hameed RN - Reason: Patient not available)2058 (Auto Hold - Provider: Orders Generic Provider - Reason: Transfer to a procedural area)2306 (Unhold - Provider: Orders Generic Provider) 0509 [...] RN) 1119 (See Alternative - Provider: Yani Espana, SOHAM) acetaminophen (TYLENOL) tablet 650 mg(Linked Group 1) [...] Lulu Tyson)2350 ($Given - Provider: Omero Hameed, SOHAM) 1119 ($Given - Provider: Yani Espana, SOHAM) calcium carbonate (TUMS) chewable tablet 1,000 mg 1,000 mg, Oral, 4 TIMES DAILY PRN, heartburn, Starting on 06/10/24 at 1957 2058 (Auto Hold - Provider: Orders Generic Provider - Reason: Transfer to a procedural area)230 (Unhold - Provider: Orders Generic Provider) hydrALAZINE [...] area)230 (Unhold - Provider: Orders Generic Provider) lidocaine [...] PRN, opioid reversal, Starting on 06/10/24 at 9, Administer intramuscular if an intravenous route is [...] PRN, constipation, Starting on 06/10/24 at 1957, If no bowel movement in 24 hours, [...] documented as of this encounter Care Teams Life Skills Worker Relationship Specialty Start Date End Date Irma Mandujano MD [address] [place] [address] PCP - General Family Medicine 02/23/24 documented as of this encounter
--- OUTSIDE RECORDS SUMMARY | 2024-06-13 02:48 | XMS_ITS | Encounter Summary ---
Author Organization [facility] Address [address] [place] [address] Care Team Providers Care Class C Driver Name Role Phone Irma Mandujano MD Primary Care Provider Reason for Referral * Diagnostic Imaging NM (Routine) - Closed Specialty Diagnoses / Procedures Referred By Kayla harris Referred To Contact Radiology. Diagnoses Stricture of ureter Procedures NM Renogram with Stone Nicole MD [facility] [address] [address] Nuclear Medicine [facility] [place] [address] Referral ID Status Reason Start Date Expiration Date Visits Re quested Visits Authorized [id number] Closed 03/13/2024 03/13/2025 1 1 Reason for Visit * Diagnostic Imaging NM (Routine) - Closed Specialty Diagnoses / Procedures Referred By Kayla harris Referred To Contact Radiology. Diagnoses Stricture of ureter Procedures NM Renogram with Stone Nicole MD [facility] [address] [address] Nuclear Medicine [facility] [place] [address] Referral ID Status Reason Start Date Expiration Date Visits Re quested Visits Authorized [id number] Closed 03/13/2024 03/13/2025 1 1 Encounter Details Date Type Department Care Team (Latest Contact Info) Description 03/15/2024 12:37 PM CDT - 03/15/2024 11:59 PM CDT Hospital Encounter [facility] [address] [place] [phone] Stone Sage MD [facility] [address] [place] [address] Stricture of ureter Discharge Disposition: Home or [...] Take 400 mg by mouth at bedtime. Polyethylene Glycol 400 0.25 % GEL Apply [...] CDT EXAM: NM RENOGRAM WITH LASIX LOCATION: [facility] DATE: 03/15/2024 INDICATION: ??Stricture of [...] 03/15/2024 EXAM: NM RENOGRAM WITH LASIX LOCATION: [facility] DATE: 03/15/2024 INDICATION: Stricture of [...] 80% of the renalfunction Stone Sage MD IMG [place] ORDERABLES documented in this encounter Visit [...] millicuries documented in this encounter Care Teams Class C Driver Relationship Specialty Start Date End Date Irma Mandujano MD [address] [place] [address] PCP - General Family Medicine 02/23/24 documented as of this encounter
== END 2024-06-10 17:24 | disposition home or self-care (01) ==
LOC: AMB 06-13 02:45
PROVIDERS: PCP Student in an Organized Health Care Education/Training Program; Visit Provider Emergency Medicine
DX: N39.0 Urinary tract infection, site not specified (principal); M54.9 Dorsalgia, unspecified; R11.10 Vomiting, unspecified
CPT/HCPCS: A0425; A0426

== ENCOUNTER 2025-02-16 13:38 | Outpatient (CLI) | payer MEDICARE, BC, SELFPAY | END 2025-02-16 13:39 | disposition home or self-care (01) | LOC: INJ CL 13:39 | PROVIDERS: PCP Student in an Organized Health Care Education/Training Program; Visit Provider Family Medicine | DX: M54.16 Radiculopathy, lumbar region (principal); M51.369 Other intervertebral disc degeneration, lumbar region without mention of lumbar back pain or lower extremity pain | CPT/HCPCS: 64483; J1100; Q9966 ==

== ENCOUNTER 2025-04-29 03:26 | Emergency (ER) | payer MEDICARE, BC, SELFPAY ==
--- OUTSIDE RECORDS SUMMARY | 2025-01-27 04:00 | XMS_ITS ---
Author Organization [facility] Address [address] [place] [address] Care Team Providers Care Envelope Maker Name Role Phone Lars EASTON [place] Unavailable [phone] Eva Agarwal Unavailable Unavailab le Migration, Provider Unavailable Unavailable REASON FOR VISIT EMR-Breezy Encounters Encounter Location Date Provider Diagnosis [facility] [address] [place] [address] 01/27/2025 Provider Migration Plan Of Treatment Medication [...] Notes * Sun ALEMANOB:06/1940 (85 yo F)Acc No.[id number]:01/27/2025 Patient: Jolly TRUJILLOrimaria luz Tidwell :1940 A ge:84 Y S ex:Female Phone: Address:[address] [place] [address], [address] * Refills Stop amLODIPine Besylate Tablet, 10 [...]
--- OUTSIDE RECORDS SUMMARY | 2025-01-28 04:00 | XMS_ITS ---
Author Organization [facility] Address [address] [place] [address] Care Team Providers Care Inventory Control Specialist Name Role Phone Lars EASTON, [place] Unavailable [phone] Eva Agarwal Unavailable Unavailab le Migration, Provider [...] smoker Encounters Encounter Location Date Provider Diagnosis [facility] [address] [place] [address] 01/28/2025 Provider Migration Plan Of Treatment No Information Progress Notes * uSn ALEMANOB:06/1940 (85 yo F)Acc No.[id number]:01/28/2025 Patient: Sun TRUJILLO :1940 A ge:84 Y S ex:Female Phone: Address:[address] [place] [address], [address] Subjective: * Chief Complaints: * E MR-Breezy [...]
--- OUTSIDE RECORDS SUMMARY | 2025-03-19 15:12 | XMS_ITS | Encounter Summary ---
Author Organization [facility] Address [address] [place] [address] Care Team Providers Care Rat Farmer Name Role Phone Elsewhere, Pcp Primary Care Provider Unavailabl e Encounter Details Date Type Department Care Team (Latest Contact Info) Description 03/19/2025 3:12 PM CDT - 03/19/2025 11:59 PM CDT Hospital Encounter Department of Laboratory Medicine in [address] [phone] Shannon Kruger APRN, C.N.P., M.S.N. [address] [place] [phone] Obstruction Ureter; Obstruction Kidney; Hematuria Discharge Disposition: Home or Self Care Social History Tobacco Use Types Packs/Day Years Used Date Smoking Tobacco: Never Smokeless Tobacco: Never Alcohol Use Standard Drinks/Week Comments Not Currently 0 (1 standard drink = 0.6 oz pur e alcohol) [facility] Utilities Answer Date Recorded In the past 12 months has e [employer], gas, oil, or water [employer] threatened to shut off services in your home? No 03/06/2025 Humiliation, Afraid, Rape, and Kick questionnair e Answer Date Recorded Within the last year, have y ou been afraid of your partner or ex-partner? No 03/06/2025 Within the last year, have y ou been humiliated or emotionally abused in other ways by your partner or ex-partner? No Within the last year, have y ou been kicked, hit, slapped, or otherwise physically hurt by your partner or ex-partner? No 03/06/2025 Within the last year, have y ou been raped or forced to have any kind of sexual activity by your partner or ex-partner? No 03/06/2025 Hunger Vital Sign Answer Date Recorded Within the past 12 months, y ou worried that your food would run out before you got the money to buy more. Never true 03/06/20 25 Within the past 12 months, t he food you bought just didn't last and you didn't have money to get more. Never true 03/06/2025 PRAPARE - Transportation Answer Date Re corded In the past 12 months, has l ack of transportation kept you from medical appointments or from getting medications? No 02/25 In the past 12 months, has l ack of transportation kept you from meetings, work, or from getting things needed for daily living? No 03/06/2025 Housing Stability Answer Date Recorded What is your living situation today? I have a [facility] place to live 03/06/2025 Education Answer Date Recorded What is the highest level of school you have completed or the highest degree you have received? 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 05/15/2024 cholecalciferol (VITAMIN D3) tablet Take by mouth. 01/25/2015 cyclobenzaprine (FlexeriL) 10 mg tablet Take 10 mg by mouth at bedtime as needed. 03/02/2025 dabigatran etexilate (Pradaxa) 75 mg capsule Take 1 capsule (75 mg total) by mouth 2 (two) times a day. 60 capsule 11 03/07/2025 DME Urological suppliesIndicati ons:Obstruction Kidney,Hydroneph rosis DME Order 1 Unspecified 5 03/09/2025 losartan (COZAAR) 25 mg tablet Take 50 mg by mouth daily. 05/25/2018 magnesium oxide (Mag-Ox) 400 mg (241.3 mg magnesium) tablet Take 400 mg by mouth at bedtime. metoprolol tartrate (Lopressor) 25 mg tablet Take 0.5 tablets (12.5 mg total) by mouth 2 (two) times a day. 30 tablet 11 03/07/2025 5:01 PM CDT 03/07/2025 oxyCODONE (Roxicodone) 5 mg immediate release tablet Take 5 mg by mouth every 4 (four) hours as needed. 03/02/2025 polyethylene glycol 400 0.25 % drops,gel Administer 1-2 drops into affected eye(s) every 6 (six) hours as needed (Dry or irritated eyes). SYNTHROID 100 mcg tablet Take 88 mcg by mouth daily before morning meal. 02/13/2019 zinc sulfate (Zinc-220) 220 (50 mg zinc) capsule 220 mg daily. documented as of this encounter Plan of Treatment Upcoming Encounters Date Type Department Care Team (Late st Contact Info) Description 05/08/2025 7:10 AM CDT Appointment Department of Laboratory Medicine and Pathology, [facility] in [place], [place] [address] [place] [phone] Yadira Drummond, PFeiAFei-C. [address] [place] [phone] 05/08/2025 9:30 AM CDT Appointment Department of Radiology, [facility] in [place], [place] [address] [place] [phone] Yadira Drummond P.A.-CFei [address] [place] [phone] 05/08/2025 1:30 PM CDT Procedure visit Department of Urology in [place], [place] [address] [place] [phone] Yadira Drummond P.AFei-CFei [address] [place] [phone] 05/08/2025 2:30 PM CDT Appointment Department of Radiology, [facility], in [place], [place] [address] [place] [phone] Yadira Drummond P.A.-C. [address] [place] [phone] 05/09/2025 9:30 AM CDT Procedure visit Department of Urology in [place], [place] [address] [place] [phone] Rupert Loving M.D. [address] [place] [phone] 05/09/2025 10:00 AM CDT Comprehensive Visit Department of Urology in [place], [place] [address] [place] [phone] Rupert Loving M.D. [address] [place] [phone] documented as of this encounter Procedures Procedure Name Priority Date/Time Associated Diagnosis Comments CBC WITHOUT DIFFERENTIAL, B Routine 03/19/2025 3:18 PM CDT Obstruction Ureter Obstruction Kidney Hematuria documented in this encounter Results * (ABNORMAL) CBC without Differential (03/19/2025 3:18 PM CDT) Hemoglobin 9.6(L) 11.6 - 15.0 g/dL 03/19/2025 3:26 PM CDT CNFL Hematocrit 29.7(L) 35.5 - 44.9 % 03/19/2025 3:26 PM CDT CNFL Erythrocytes 3.24(L) 3.92 - 5.13 x10(12)/L 03/19/2025 3:26 PM CDT CNFL MCV 91.7 78.2 - 97.9 fL 03/19/2025 3:26 PM CDT CNFL RBC Distrib Width 14.4 12.2 - 16.1 % 03/19/2025 3:26 PM CDT CNFL Platelet Count 398(H) 157 - 371 x10(9)/L 03/19/2025 3:26 PM CDT CNFL Leukocytes 8.3 3.4 - 9.6 x10(9)/L 03/19/2025 3:26 PM CDT CNFL Blood (Blood, Venous) 03/19/2025 3:18 PM CDT 03/19/2025 3:19 PM CDT us Shannon Kruger APRN, C.N.P., M.S.N. LAB BLOOD ADD-ON Final Result [facility] [address] [place] [phone], [facility] CNFL [facility] in [address] [phone] documented in this encounter Visit Diagnoses Diagnosis Obstruction Ureter Obstruction Kidney Hematuria documented in this encounter Care Teams Rat Farmer Relationship Specialty Start Date End Date Elsewhere, Pcp PCP - General Internal Medicine 03/06/25 04/17/25 documented as of this encounter
--- OUTSIDE RECORDS SUMMARY | 2025-04-04 09:45 | XMS_ITS | Encounter Summary ---
Author Organization [facility] Address [address] [place] [phone] Care Team Providers Care Flight Operations Dispatch Clerk Name Role Phone Elsewhere, Pcp Primary Care Provider Unavailabl e Reason for Referral * Outpatient (Routine) - Closed Specialty Diagnoses / Procedures Referred By Kayla t Referred To Contact Radiology Diagnoses Hydronephrosis Procedures IR Nephrostomy Tube Check Right Yadira Drummond P.A.-C. [address] [place] [phone] Phone: tel: fax: [facility] Referral ID Status Reason Start Date Expiration Date Visits Re quested Visits Authorized [id number] Closed 03/07/2025 06/07/2026 1 1 Reason for Visit * Outpatient (Routine) - Closed Specialty Diagnoses / Procedures Referred By Kayla harris Referred To Contact Radiology Diagnoses Hydronephrosis Procedures IR Nephrostomy Tube Check Right Yadira Drummond P.A.-C. [address] [place] [phone] Phone: tel: fax: [facility] Referral ID Status Reason Start Date Expiration Date Visits Re quested Visits Authorized [id number] Closed 03/07/2025 06/07/2026 1 1 Encounter Details Date Type Department Care Team (Latest Contact Info) Description 04/04/2025 9:45 AM CDT - 04/04/2025 10:57 AM CDT Hospital Encounter Department of Radiology, [facility] in [place], [place] [address] [place] [phone] Yadira Drummond P.A.-C. 200 [place] [phone] Thomas Mcclure M.D. 200 [place] [phone] Hydronephrosis Discharge Disposition: Home or Self Care Social History Tobacco Use Types Packs/Day Years Used Date Smoking Tobacco: Never Smokeless Tobacco: Never Tobacco Cessation:Counseling Given: Not Answered Alcohol Use Standard Drinks/Week Comments Not Currently 0 (1 standard drink = 0.6 oz pur e alcohol) [facility] [employer] Answer Date Recorded In the past 12 months has e [employer], gas, oil, or water [employer] threatened to shut off services in your [...] your living situation today? I have a [facility] place to live 03/06/2025 Education Answer Date Recorded What is the highest level of school you have completed or the highest degree you have received? 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 documented as of this encounter Procedure Notes * Thomas Mcclure M.D. - 04/04/2025 10:43 AM CDT PATIENT DISPOSITION Return to Outpatient Unit for recovery. Discharge patient when discharge criteria met. POST-PROCEDURE DIAGNOSIS Right UPJ obstruction PROCEDURE PERFORMED AND DESCRIPTION Right nephrostogram and re-suturing with 2-0 silk PROCEDURE DETAILS See Radiology Report SPECIMENS REMOVED None FINDINGS Right UPJ obstruction PRIMARY PROCEDURALIST SOFYA Mcclure MD [phone] ASSISTANTS none COMPLICATIONS None. DRAINS Right nephrostomy tube IMPLANTS None. ANESTHESIA Local Anesthesia. FLUIDS none ESTIMATED BLOOD LOSS 0 mL CURRENT MEDICATIONS No Medication Changes FOLLOW-UP LETTER None. MAY RETURN TO WORK Not applicable PATIENT INSTRUCTIONS No return appointment documented in this encounter Plan of Treatment Upcoming Encounters Date Type Department Care Team (Late st Contact Info) Description 05/08/2025 7:10 AM CDT Appointment Department of Laboratory Medicine and Pathology, [facility] in [place], [place] [address] [place] [phone] Yadira Drummond PLuis-Nikhil. [address] [place] [phone] 05/08/2025 9:30 AM CDT Appointment Department of Radiology, [facility] in [place], [place] [address] [place] [address] Yadira Drummond P.A.-C. [address] [place] [phone] 05/08/2025 1:30 PM CDT Procedure visit Department of Urology in [place], [place] [address] [place] [phone] Yadira Drummond P.A.-C. [address] [place] [phone] 05/08/2025 2:30 PM CDT Appointment Department of Radiology, [facility], in [place], [place] [address] [place] [phone] Yadira Drummond P.A.-C. [address] [place] [phone] 05/09/2025 9:30 AM CDT Procedure visit Department of Urology in [place], [place] [address] [place] [phone] Rupert Loving M.D. [address] [place] [phone] 05/09/2025 10:00 AM CDT Comprehensive Visit Department of Urology in [place], [place] [address] [place] [phone] Rupert Loving M.D. 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 Tube with good position and function. Retention stitch exchanged for a 2-0 silk stitch. NR Narrative 04/04/2025 12:56 PM CDT EXAM: IR NEPHROSTOMY TUBE CHECK RIGHT CLINICAL HISTORY: 84-year-old female presents for right nephrostogram. History of ureteral obstruction and right ureteral stent. Right percutaneous nephrostomy tube was placed 03/06/2025 with right double-J ureteral stent removal at that time. Patient reports good output from the right nephrostomy tube and would like the retention stitch replaced. TECHNIQUE: Fluoroscopic senior security architect image demonstrates a right nephrostomy tube in place. Contrast injection demonstrates filling of a dilated right renal pelvis. We distended the right renal pelvis to the point of patient discomfort and there was no flow across the UPJ into the right ureter. Tube was aspirated immediately relieving the patient's discomfort. Tube flushed with sterile saline and returned to gravity bag drainage. The right flank was prepped and draped in the usual sterile fashion and the Prolene retention stitch was removed. A new 2-0 silk stitch was placed to secure the nephrostomy tube. Sterile dressings applied. No immediate complications. PREPROCEDURE: Patient seen and evaluated. Allergies, pertinent medications, and history reviewed. Discussed risks, benefits, alternatives for procedure, and obtained informed consent. Patient understands information and questions answered. Immediately prior to starting the procedure, in the presence of the assisting personnel, procedural pause was conducted to verify correct patient identity and verification of procedure to be performed, and as applicable, correct side and site, correct patient position, availability of implants, special equipment, or special requirements, and all image and specimen identification data. The roles and responsibilities of care team members, residents, and fellows were discussed. Procedure Note Thomas Mcclure M.D. - 04/04/2025 EXAM: IR NEPHROSTOMY TUBE CHECK RIGHT CLINICAL HISTORY: 84-year-old female presents for right nephrostogram.History of ureteral obstruction and right ureteral stent. Rightpercutaneous nephrostomy tube was placed 03/06/2025 with right double-Jureteral stent removal at that time. Patient reports good output from the right nephrostomy tube and would like theretention stitch replaced. TECHNIQUE: Fluoroscopic senior security architect image demonstrates a right nephrostomy tubein place. Contrast injection demonstrates filling of a dilated right renalpelvis. We distended the right renal pelvis to the point of patientdiscomfort and there was no flow across the UPJ into the right ureter. Tube was aspirated immediatelyrelieving the patient's discomfort. Tube flushed with sterile saline andreturned to gravity bag drainage. The right flank was prepped and drapedin the usual sterile fashion and the Prolene retention stitch was removed. A new 2-0 silk stitch was placed tosecure the nephrostomy tube. Sterile dressings applied. No immediatecomplications. PREPROCEDURE: Patient seen and evaluated. Allergies, pertinentmedications, and history reviewed. Discussed risks, benefits, alternativesfor procedure, and obtained informed consent. Patient understandsinformation and questions answered. Immediately prior to starting the procedure, in the presence of the assistingpersonnel, procedural pause was conducted to verify correct patientidentity and verification of procedure to be performed, and as applicable,correct side and site, correct patient position, availability of implants, special equipment, or specialrequirements, and all image and specimen identification data. The rolesand responsibilities of care team members, residents, and fellows werediscussed. IMPRESSION: Right nephrostogram demonstrates a right UPJ obstruction with no flow downthe right ureter. Tube with good position and function. Retention stitchexchanged for a 2- 0 silk stitch. NR Yadira Drummond P.A.-C. IMZane IR PROCEDURES Final Result documented in this encounter Visit Diagnoses Diagnosis Hydronephrosis documented in this encounter Administered Medications Inactive Administered Medications - up to 3 most recent administrations Medication Order MAR Action Action Date Dose Rate Site iohexoL 300 mg iodine/mL solution (Omnipaque) As needed, Starting on Wed04/04/25 at 1039, Intra-Op Given 04/04/2025 10:39 AM CDT 8 mL lidocaine-sodium bicarbonate (buffered) 0.9%-0.84% injection infiltration, As needed, Starting on Wed04/04/25 at 1040, Intra-Op Given 04/04/2025 10:40 AM CDT 3 mL documented in this encounter Active and Recently Administered Medications Times are shown in CDT. PRN Medication Order 04/02/2025 04/03/2025 04/04/2025 iohexoL 300 mg iodine/mL solution (Omnipaque) (COMPLETED) As needed, Starting on Wed04/04/25 at 1039, Intra-Op 1039 (Given - Provid er: Thomas Mcclure M.D.) lidocaine-sodium bicarbonate (buffered) 0.9%-0.84% injection (COMPLETED) infiltration, As needed, Starting on Wed04/04/25 at 1040, Intra-Op 1040 (Given - Provid er: Thomas Mcclure M.D.) documented in this encounter Care Teams Flight Operations Dispatch Clerk Relationship Specialty Start Date End Date Elsewhere, Pcp PCP - General Internal Medicine 03/06/25 04/17/25 documented as of this encounter
--- OUTSIDE RECORDS SUMMARY | 2025-04-18 11:33 | XMS_ITS | Encounter Summary ---
Author Organization 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 [address] [place] [phone] Diarrhea (Primary Dx) Discharge Disposition: Home or Self Care Social History Tobacco Use Types Packs/Day Years Used Date Smoking Tobacco: Never Smokeless Tobacco: Never Alcohol Use Standard Drinks/Week Comments Not Currently 0 (1 standard drink = 0.6 oz pur e alcohol) [facility] Utilities Answer Date Recorded In the past 12 months has [facility] [employer], oil, or water [employer] threatened to shut off services in your [...] your living situation today? I have a [facility] place to live 03/06/2025 Education Answer Date Recorded What is the highest level of school you have completed or the highest degree you have received? Associate degree: occupational, technical, or vocational program 05/27/2020 Comments No Sex and Gender Information Value Date Recorded Sex Assigned at Female 02/19/2025 10:16 AM CDT Legal Sex Female 2:16 PM HOG P[employer]HER Gender Identity Female 02/19/2025 10:16 AM CDT Sexual Orientation Straight 02/19/2025 10 :16 AM CDT documented as of this encounter Last Filed Vital Signs Vital Sign Reading Time Taken Comments Blood Pressure 197/57 04/18/2025 5:00 PM CDT Pulse 52 04/18/2025 5:00 PM CDT Temperature 36.6 C (97.9 F) 04/18/2025 3:23 PM CDT Respiratory Rate 18 04/18/2025 5:25 PM CDT Oxygen Saturation 99% 04/18/2025 5:00 PM CDT Inhaled Oxygen Concentration - - Weight 78.7 kg (173 lb 8 oz) 04/18/2025 11:36 AM CDT Height 162.6 cm (5' 4) 04/18/2025 11:36 AM CDT Body Mass Index 29.78 04/18/2025 11:36 AM CDT documented in this encounter Discharge Instructions * Discharge Instructions* Silvia Marin - 04/18/2025 5:13 PM CDT It was a pleasure meeting you in the ED. You were seen for diarrhea, and we have sent out a stool test for C. Diff infection. We will give you a call with the results of the stool test; if positive for C. Diff, we will start you on an antibiotic treatment. In the meantime, if the diarrhea worsens so that you are unable to stay hydrated, if you develop a fever, or if you start to see blood in the stool, please return to the ED. In addition, we have prescribed some topical steroids (hydrocortisone) for the dry patch on your leg, which is likely eczema. Please apply twice daily to the dry region. You may also use Aquaphor lotion to moisturize the region 2-3 times daily. * Attachments The following attachments cannot be sent through Care Everywhere. * Diarrhea Adult Evxe-iv-Aedz (Arabic) documented in this encounter Medications at Time [...] day. 60 capsule 11 03/07/2025 DME Urological suppliesIndicat ions:Obstructio n Kidney,Hydronep hrosis DME Order 1 Unspecified 5 03/09/2025 hydrocortisone 1 % cream Apply 1 Application topically 2 (two) times a day. Apply to right leg. 30 g 04/19/2025 8:37 AM CDT 04/18/2025 losartan (COZAAR) 25 mg tablet Take 50 [...] mg daily. documented as of this encounter ED Notes * Silvia Marin - 04/18/2025 4:23 PM CDT SUBJECTIVE CHIEF COMPLAINT/REASON FOR VISIT Diarrhea OBJECTIVE Initial Vitals Temperature 04/18/25 1136 36.4 ??C Pulse Rate 04/18/25 1136 75 Heart Rate -- Resp Rate 04/18/25 1136 15 Blood Pressure 04/18/25 1530 (!) 204/49 SpO2 04/18/25 1136 99 % Pain Score 04/18/25 1146 0 - No pain PHYSICAL EXAMINATION GENERAL: Well developed, well nourished, in no acute distress. HEENT: Normocephalic, Atraumatic, PERRL, Moist mucous membranes. NECK: Supple, non-tender. No adenopathy, masses, or thyromegaly. HEART: RRR with normal S1, S2. No murmurs, gallops, or rubs. LUNGS: Good air movement bilaterally. Slight wheezing. No crackles, rhonchi, or diminished breath sounds. ABDOMEN: Soft, nondistended. Mild tenderness to palpation diffusely, localized over bilateral lowerquadrants. No palpable masses or organomegaly. Normoactive bowel sounds. BACK: Negative CVA tenderness. Nephrostomy site over R flank is clean, dry, non-erythematous. SKIN: Warm, Dry, Capillary refill < 2 seconds EXTREMITIES: 2+ pitting edema bilaterally. Excoriated scaly abrasion over R cotto with surrounding warmth and mild erythema. NEURO: Alert and oriented x 3, CN 2-12 grossly intact, No deficits noted ASSESSMENT/PLAN Sun Singh is a 85 year old female with a history of recurrent UTIs and ureteral obstruction s/p nephrostomy tube (R) placement on 03/06, presenting for watery diarrhea after recent amoxicillin and cephalexin treatment for UTI. She is currently hypertensive but afebrile and hemodynamically stable. Differential for diarrhea includes C. Diff, especially given recent antibiotic use. Viral gastroenteritis, food poisoning, IBD, IBS were also considered though less likely given the lack of history of sick contacts or family members, chronic diarrhea or abdominal pain. We have ordered a GI pathogen panel and plan to follow-up with results; if positive for C. Diff, wewill start oral vancomycin for her. Otherwise labs are reassuring against dehydration. UTI seems tohave resolved on Keflex as she is currently asymptomatic and no longer has significant pyuria. Otherwise, the dry, scaly patch over her right cotto appears eczematous. We will prescribe topical hydrocortisone and emollients for this. Patient was deemed stable for discharge to home with return precautions. She expresses understanding and is amenable to the plan. Final Diagnoses: as of 04/18/251721 Diarrhea Recommendations discussed with supervising physician, Dr. Angelo. This is a Medical Student note. Please refer to physician attestation for final assessment and recommendation. Silvia Marin, Silvia Arguelles 04/18/251725 Cosigned by Fady Angelo M.D. at 04/19/2025 4:27 PM CDT * Fady Angelo M.D. - 04/18/2025 4:04 PM CDT SUBJECTIVE CHIEF COMPLAINT/REASON FOR VISIT Diarrhea HISTORY OF PRESENT ILLNESS Sun Singh is an 85 y.o. female with a history of atrial fibrillation (not anticoagulatedon blood thinners) hypertension, right obstructive uropathy s/p several stents and nephrostomy tube(03/06/2025), CKD, hyperlipidemia, hypothyroidism, and recurrent UTIs who presents to the EmergencyDepartment to be evaluated for diarrhea. The patient is from [place], however, has been being seen at [place] related to her kidneys. The patient was recently diagnosed with a UTI on 04/14/2025 to which she was placed on a 10-day course of Keflex. She has been taking her antibiotics as prescribed up until two days ago on 04/16/2025when she began to experience the acute onset of diarrhea that continued to worsen in the following days. She describes this as persistent, loose, dark colored stools with associated fecal incontinence prompting her to wear pads. Yesterday, she reports having 5 episodes of this diarrhea. She presented to her PCP for further evaluation to which they advised her to present to [facility] ED for C. difficileworkup. Of note, the patient has new swelling and redness to her right lower extremity that she reports to have been itchy for about the past month. She has tried various lotions without improvement. She hasyet to try any topical steroids. 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 Please refer to the HPI for clinically pertinent positive and negative review of systems. OBJECTIVE Initial Vitals Temperature 04/18/25 1136 36.4 ??C Pulse Rate 04/18/25 1136 75 Heart Rate -- Resp Rate 04/18/25 1136 15 Blood Pressure 04/18/25 1530 (!) 204/49 SpO2 04/18/25 1136 99 % Pain Score 04/18/25 1146 0 - No pain PHYSICAL EXAMINATION Constitutional: Nursing note and vitals reviewed. HENT: Head: Normocephalic. Mouth/Throat: Oropharynx is clear and moist. Mucous membranes are moist. Eyes: Conjunctivae are normal. Cardiovascular: Normal peripheral perfusion. 2+ pitting edema bilaterally. Pulmonary/Chest: Effort normal. Abdominal: Soft. exhibits no distension. There is abdominal tenderness. There is no rebound and no guarding. Mild diffuse tenderness to palpation of lower bilateral quadrants. Musculoskeletal: General: Normal range of motion. Cervical back: Normal range of motion. Neurological: Alert. Skin: Skin is warm and dry. Scaly abrasion to right cotto with mild erythema. Psychiatric: She has a normal mood and affect. ASSESSMENT/PLAN Assessment and Plan 85-year-old female presents with diarrhea. Upon arrival to the ED, the patient was hypertensive, but overall vitally stable and generally well appearing. On examination, there is mild diffuse abdominal tenderness, worse in the bilateral lower quadrants. She has no peritoneal signs. No indication for advanced imaging of the abdomen at this time. Based on history including her recent antibiotic use, I am most suspicious of C. difficile. For this, we have obtained a GI pathogen panel to assess forthis and other microbes. This was pending at the time of discharge. If positive, the plan will be to initiate with vancomycin. Considered gastroenteritis and other viral etiologies, though she has not experienced any vomiting or other focal symptoms. There have been no changes in her urination, making UTI less likely. In the setting of her increased right lower extremity swelling and erythema with associated itching, will recommend topical hydrocortisone as well as use of Aquaphor daily. Low concern for alternative etiologies like cellulitis or DVT. Given her otherwise reassuring evaluation and workup, the plan will be to discharge home with return precautions provided. . I reviewed the following external records: office records, primary care records and outside ED records. Final Diagnoses: as of 04/18/251932 Diarrhea I saw the patient with the medical student. I was present for or re-performed the History of Present Illness. I personally performed a Physical Exam and Medical Decision Making. I reviewed medical student documentation and agree or amended. I personally performed the services described in this documentation, as scribed in my presence, andit is both accurate and complete. Fady Angelo M.D. 04/19/25 1627 Fady Angelo M.D. 04/19/25 1627 Fady Angelo M.D. 04/19/25 1627 * Matteo Vance, R.N. - 04/18/2025 11:37 AM CDT Pt comes in for loose stools that started Wednesday after starting antibiotics (Keflex) for a UTI. The stools have been dark in color, also black. Anything she eat or drinks comes out. The pt was seenby her PCP and told to present to a ed for further work up of C-DIFF. Pt is not on blood thinners at this time. Pt also had a Neph tube placed on 03/06/2025, sit looks good. Matteo Vance R.N. 04/18/25 1146 documented in this encounter Plan of Treatment Upcoming Encounters Date Type Department Care Team (Late st Contact Info) Description 05/08/2025 7:10 AM CDT Appointment Department of Laboratory Medicine and Pathology, [facility] in [place], [place] [address] [place] [phone] Yadira Drummond P.A.-C. [address] [place] [phone] 05/08/2025 9:30 AM CDT Appointment Department of Radiology, [facility] in [place], [place] [address] [place] [phone] Yadira Drummond P.AFei-CFei [address] [place] [phone] 05/08/2025 1:30 PM CDT Procedure visit Department of Urology in [place], [place] [address] [place] [phone] Yadira Drummond P.A.-CFei [address] [place] [phone] 05/08/2025 2:30 PM CDT Appointment Department of Radiology, [facility], in [place], [place] [address] [place] [phone] Yadira Drummond P.A.-CFei [address] [place] [phone] 05/09/2025 9:30 AM CDT Procedure visit Department of Urology in [place], [place] [address] [place] [phone] Rupert Loving M.D. [address] [place] [phone] 05/09/2025 10:00 AM CDT Comprehensive Visit Department of Urology in [place], [place] [address] [place] [phone] Rupert Loving M.D. [address] [place] [phone] documented as of this encounter Procedures Procedure Name Priority Date/Time Associated Diagnosis Comments GI PATHOGEN PANEL, PCR, F Routine 04/18/2025 3:29 PM CDT LACTATE FOR SEPSIS WITH REFLEX STAT 04/18/2025 12:39 PM CDT HEPATIC FUNCTION PANEL, S STAT 04/18/2025 12:39 PM CDT PROTHROMBIN TIME (PT), P STAT 04/18/2025 12:39 PM CDT CBC WITH DIFFERENTIAL, B STAT 04/18/2025 12:39 PM CDT LIPASE, S/P STAT 04/18/2025 12:39 PM CDT BASIC METABOLIC PANEL, S/P STAT 04/18/2025 12:39 PM CDT DIPSTICK, U STAT 04/18/2025 11:49 AM CDT MICROSCOPIC MANUAL STAT 04/18/2025 11 :49 AM CDT BACTERIAL CULTURE, AEROBIC + SUSC, URINE STAT 04/18/2025 11:49 AM CDT PH, U STAT 04/18/2025 11:49 AM CDT OSMOLALITY, U STAT 04/18/2025 11:49 AM CDT URINALYSIS WITH MICROSCOPIC STAT 04/18/2025 11:49 AM CDT documented in this encounter Results * GI Pathogen Panel, PCR, Feces (04/18/2025 3:29 PM CDT) Specimen Source STOOL 6:11 PM CDT DTL Campylobacter species Negative Negative 04/18/2025 6:11 PM CDT DTL C. difficile toxin Negative Negative 2024 6:11 PM CDT DTL Plesiomonas shigelloides Negative Negative 04/18/2025 6:11 PM CDT DTL Salmonella species Negative Negative 2024 6:11 PM CDT DTL Vibrio species Negative Negative 04/18/2025 6:11 PM CDT DTL Vibrio cholerae Negative Negative 6:11 PM CDT DTL Yersinia species Negative Negative 04/18/20 6:11 PM CDT DTL Enteroaggregative E. coli (EAEC) Negative Negative 04/18/2025 6:11 PM CDT DTL Enteropathogenic E. coli (EPEC) Negative Negative 04/18/2025 6:11 PM CDT DTL Enterotoxigenic E. coli (ETEC) Negative Negative 04/18/2025 6:11 PM CDT DTL Shiga toxin producing E. coli Negative Negative 04/18/2025 6:11 PM CDT DTL Shigella/Enteroinvas paul E. coli Negative Negative 04/18/2025 6:11 PM CDT DTL Cryptosporidium species Negative Negative 04/18/2025 6:11 PM CDT DTL Cyclospora cayetanensis Negative Negative 04/18/2025 6:11 PM CDT DTL Entamoeba histolytica Negative Negative 04/18/2025 6:11 PM CDT DTL Giardia Negative Negative 04/18/2025 6:11 PM CDT DTL Adenovirus F40/41 Negative Negative 025 6:11 PM CDT DTL Astrovirus Negative Negative 04/18/2025 6:11 PM CDT DTL Norovirus GI/GII Negative Negative 04/18/20 25 6:11 PM CDT DTL Rotavirus Ag, F Negative Negative 5 6:11 PM CDT DTL Sapovirus Negative Negative 04/18/2025 6:11 PM CDT DTL Comment: ----ADDITIONAL INFORMATION---- This assay is performed using the FDA-cleared FilmArray GI Panel ([employer] Stool (Stool) 04/18/2025 3:2 9 PM CDT 04/18/2025 4:02 PM CDT Merna Mcclellan P.A.-C., M.S. LAB MICROBIOLOGY - GENERAL ORDERABLES Final Result Performing Organization Address [facility] de Phone Number [facility] [address] DTL 200 [place] [address] * Prothrombin Time (PT) (04/18/2025 12:39 PM CDT) Prothrombin Time, P 10.8 9.4 - 12.5 sec 04/18/2025 12:54 PM CDT STMA INR 1.0 0.9 - 1.1 04/18/2025 12:54 PM CDT STMA Comment: ----ADDITIONAL INFORMATION---- Standard intensity warfarin therapeutic range: 2.0 to 3.0 High intensity warfarin therapeutic range: 2.5 to 3.5 Blood (Blood, Venous) 04/18/2025 12:39 PM CDT 04/18/2025 12:44 PM CDT Fady Angelo M.D. LAB BLOOD ADD-ON Final Result Performing Organization Address [facility] Co de Phone Number [facility] [address] STMA [address] [place] [address] * Lactate for Sepsis with Reflex (04/18/2025 12:39 PM CDT) [facility] Lactate, P 0.8 0.5 - 2.2 mmol/L 04/18/2025 12:59 PM CDT STMA Blood (Blood, Venous) 04/18/2025 12:39 PM CDT 04/18/2025 12:44 PM CDT us Fady Angelo M.D. LAB BLOOD NON ADD-ON Final Re sult [facility] 200 [place] [address], [facility] 200 [place] [address] * (ABNORMAL) CBC with Differential, Blood (04/18/2025 12:39 PM CDT) [facility] Hemoglobin 9.8(L) 11.6 - 15.0 g/dL 04/18/2025 12:49 PM CDT STMA Hematocrit 30.5(L) 35.5 - 44.9 % 04/18/2025 12:49 PM CDT STMA Erythrocytes 3.26(L) 3.92 - 5.13 x10(12)/L 04/18/2025 12:49 PM CDT STMA MCV 93.6 78.2 - 97.9 fL 04/18/2025 12:49 PM CDT STMA RBC Distrib Width 14.2 12.2 - 16.1 % 04/18/2025 12:49 PM CDT STMA Platelet Count 380(H) 157 - 371 x10(9)/L 04/18/2025 12:49 PM CDT STMA Leukocytes 7.2 3.4 - 9.6 x10(9)/L 04/18/2025 12:49 PM CDT STMA Neutrophils 2.80 1.56 - 6.45 x10(9)/L 04/18/2025 12:49 PM CDT DH[facility] Lymphocytes 3.41(H) 0.95 - 3.07 x10(9)/L 04/18/2025 12:49 PM CDT STMA Monocytes 0.68 0.26 - 0.81 x10(9)/L 04/18/2025 12:49 PM CDT STMA Eosinophils 0.24 0.03 - 0.48 x10(9)/L 04/18/2025 12:49 PM CDT STMA Basophils 0.10(H) 0.01 - 0.08 x10(9)/L 04/18/2025 12:49 PM CDT STMA Blood (Blood, Venous) 04/18/2025 12:39 PM CDT 04/18/2025 12:44 PM CDT Fady Angelo M.D. LAB BLOOD ADD-ON Final Result Performing Organization Address [facility]/ZIP Co de Phone Number [facility] [address] [place] [address], [facility] STMA [facility] 200 [place] [address] [place] [address] * Lipase (04/18/2025 12:39 PM CDT) Lipase, S 41 13 - 60 U/L 04/18/2025 1: 34 PM CDT DTL Blood (Blood, Venous) 04/18/2025 12:39 PM CDT 04/18/2025 12:48 PM CDT Fady Angelo M.D. LAB BLOOD ADD-ON Final Result [facility] [address] [place] [address], [facility] [place] [place] [address] * (ABNORMAL) Hepatic Function Panel (04/18/2025 12:39 PM CDT) Bilirubin, Total, S 0.3 0.0 - 1.2 mg/dL 04/18/2025 1:34 PM CDT DTL Bilirubin, Direct, S <0.1 0.0 - 0.3 mg/dL 04/18/2025 1:34 PM CDT DTL Aspartate Aminotransferase (AST), S 21 8 - 43 U/L 04/18/2025 1:34 PM CDT DTL Alanine Aminotransferase (ALT), S 12 7 - 45 U/L 04/18/2025 1:34 PM CDT DTL Alkaline Phosphatase, S 127(H) 35 - 104 U/L 04/18/2025 1:34 PM CDT DTL Albumin, S 3.9 3.5 - 5.0 g/dL 04/18/2025 1:34 PM CDT DTL Protein, Total, S 6.7 6.3 - 7.9 g/dL 04/18/2025 1:34 PM CDT DTL Blood (Blood, Venous) 04/18/2025 12:39 PM CDT 04/18/2025 12:48 PM CDT Fady Angelo M.D. LAB BLOOD ADD-ON Final Result [facility] [address] [place] [address], [facility] [address] [place] [address] * (ABNORMAL) Basic Metabolic Panel (04/18/2025 12:39 PM CDT) Potassium, P 4.7 3.6 - 5.2 mmol/L 04/18/2025 1:01 PM CDT STMA Sodium, P 140 135 - 145 mmol/L 04/18/2025 1:01 PM CDT STMA Chloride, P 108(H) 98 - 107 mmol/L 04/18/2025 1:01 PM CDT STMA Bicarbonate, P 22 22 - 29 mmol/L 04/18/2025 1:01 PM CDT STMA Anion Gap, P 10 7 - 15 04/18/2025 1:01 PM CDT STMA BUN (Blood Urea Nitrogen), P 27(H) 6 - 21 mg/dL 04/18/2025 1:01 PM CDT STMA Creatinine 1.57(H) 0.59 - 1.04 mg/dL 04/18/2025 1:01 PM CDT STMA Estimated GFR (eGFR) 32(L) >=60 mL/min/BSA 04/18/2025 1:01 PM CDT STMA Comment: Estimated GFR calculated using the 2020 CKD_EPI creatinine equation. Calcium, Total, P 9.0 8.8 - 10.2 mg/dL 04/18/2025 1:01 PM CDT STMA Glucose, P 110 70 - 140 mg/dL 04/18/2025 1:01 PM CDT STMA Blood (Blood, Venous) 04/18/2025 12:39 PM CDT 04/18/2025 12:44 PM CDT Fady Angelo M.D. LAB BLOOD ADD-ON Final Result Performing Organization Address [facility] Co de Phone Number [facility] [address] STMA [facility] 200 [place] [address] * (ABNORMAL) Microscopic Manual (04/18/2025 11:49 AM CDT) Microscopy Abnormal 04/18/2025 1:03 PM CDT DTL RBC <3 <3 /hpf 04/18/2025 1:03 PM CDT DTL WBC 4-10 /hpf 04/18/2025 1:03 PM CDT DTL Comment: ----REFERENCE VALUE---- <4 (Males) <11 (Females) Bacteria Present(A) 04/18/2025 1:03 PM CDT DTL Urine 04/18/2025 11:4 9 AM CDT 04/18/2025 12:26 PM CDT us Fady Angelo M.D. LAB URINE ORDERABLES Final Re sult Performing Organization Address [facility] Co de Phone Number [facility] [address] DTL [facility] 200 [place] [address] * (ABNORMAL) Dipstick, Urine (04/18/2025 11:49 AM CDT) Hemoglobin, QL, U Trace(A) Negative 04/18/2025 12:26 PM CDT DTL Leukocyte Esterase, U Large(A) Negative 04/18/2025 12:26 PM CDT DTL Nitrite, U Negative Negative 04/18/2025 12:26 PM CDT DTL Ketone, U Negative Negative mg/dL 04/18/2025 12:26 PM CDT DTL Glucose, U Negative Negative mg/dL 04/18/2025 12:26 PM CDT DTL Urine 04/18/2025 11:4 9 AM CDT 04/18/2025 12:13 PM CDT Fady Angelo M.D. LAB URINE ORDERABLES Final Re sult Performing Organization Address City/[facility]/ZIP Co de Phone Number [facility] [address] [place] [address] * Osmolality, Urine (04/18/2025 11:49 AM CDT) Pathologist [facility] Osmolality, U 253 150 - 1150 mOsm/kg 04/18/2025 12:33 PM CDT DT Urine 04/18/2025 11:4 9 AM CDT 04/18/2025 12:13 PM CDT Fady Angelo M.D. LAB URINE ORDERABLES Final Re sult [facility] 200 [place] [address] * pH, Urine (04/18/2025 11:49 AM CDT) pH, U 6.8 4.5 - 8.0 04/18/2025 12: 33 PM CDT DTL Urine 04/18/2025 11:4 9 AM CDT 04/18/2025 12:13 PM CDT us Fady Angelo M.D. LAB URINE ORDERABLES Final Re sult [facility] [address] [place] [address], [place] [facility] [address] [place] [address] * (ABNORMAL) Bacterial Culture, Aerobic + Susceptibility, Urine (04/18/2025 11:49 AM CDT) Urine Culture ENTEROBACTER CLOACAE COMPLEX >100,000 cfu/mL (A) 04/21/2025 1:42 PM CDT DTL Urine Culture KLEBSIELLA PNEUMONIAE COMPLEX 10,000-100,000 cfu/mL (A) 04/21/2025 1:42 PM CDT DTL Urine (Urine, Midstream) 04/18/2025 11:49 AM CDT 04/18/2025 12:45 PM CDT Comment:Specimen Source Site : Urine Narrative Organism Antibiotic Method Susceptibility Enterobacter cloacae complex Ampicillin SUSCEPTIBILITY, ARA (MCG/ML) mcg/mL: Resistant Enterobacter cloacae complex Ampicillin + Sulbactam SUSCEPTIBILITY, ARA (MCG/ML) mcg/mL: Resistant Enterobacter cloacae complex Meropenem SUSCEPTIBILITY, ARA (MCG/ML) <=0.12 mcg/mL: Susceptible Enterobacter cloacae complex Ertapenem SUSCEPTIBILITY, ARA (MCG/ML) <=0.25 mcg/mL: Susceptible Enterobacter cloacae complex Piperacillin + Tazobactam SUSCEPTIBILITY, ARA (MCG/ML) <=8/4 mcg/mL: Susceptible Enterobacter cloacae complex Ciprofloxacin SUSCEPTIBILITY, ARA (MCG/ML) <=0.25 mcg/mL: Susceptible Enterobacter cloacae complex Levofloxacin SUSCEPTIBILITY, ARA (MCG/ML) <=0.5 mcg/mL: Susceptible Enterobacter cloacae complex Cefazolin SUSCEPTIBILITY, ARA (MCG/ML) mcg/mL: Resistant Enterobacter cloacae complex Ceftriaxone SUSCEPTIBILITY, ARA (MCG/ML) <=1 mcg/mL: Susceptible Enterobacter cloacae complex Ceftazidime SUSCEPTIBILITY, ARA (MCG/ML) <=4 mcg/mL: Susceptible Enterobacter cloacae complex Cefepime SUSCEPTIBILITY, ARA (MCG/ML) <=2 mcg/mL: Susceptible Enterobacter cloacae complex Amikacin SUSCEPTIBILITY, ARA (MCG/ML) <=4 mcg/mL: Susceptible Enterobacter cloacae complex Gentamicin SUSCEPTIBILITY, ARA (MCG/ML) <=1 mcg/mL: Susceptible Enterobacter cloacae complex Tobramycin SUSCEPTIBILITY, ARA (MCG/ML) <=1 mcg/mL: Susceptible Enterobacter cloacae complex Aztreonam SUSCEPTIBILITY, ARA (MCG/ML) <=4 mcg/mL: Susceptible Enterobacter cloacae complex Trimethoprim + Sulfamethoxazole SUSCEPTIBILITY, ARA (MCG/ML) <=0.5/9.5 mcg/mL: Susceptible Enterobacter cloacae complex Nitrofurantoin SUSCEPTIBILITY, ARA (MCG/ML) 64 mcg/mL: Intermediate Klebsiella pneumoniae complex Ampicillin SUSCEPTIBILITY, ARA (MCG/ML) mcg/mL: Resistant Klebsiella pneumoniae complex Ampicillin + Sulbactam SUSCEPTIBILITY, ARA (MCG/ML) <=8/4 mcg/mL: Susceptible Klebsiella pneumoniae complex Meropenem SUSCEPTIBILITY, ARA (MCG/ML) <=0.12 mcg/mL: Susceptible Klebsiella pneumoniae complex Ertapenem SUSCEPTIBILITY, ARA (MCG/ML) <=0.25 mcg/mL: Susceptible Klebsiella pneumoniae complex Piperacillin + Tazobactam SUSCEPTIBILITY, ARA (MCG/ML) <=8/4 mcg/mL: Susceptible Klebsiella pneumoniae complex Ciprofloxacin SUSCEPTIBILITY, ARA (MCG/ML) <=0.25 mcg/mL: Susceptible Klebsiella pneumoniae complex Levofloxacin SUSCEPTIBILITY, ARA (MCG/ML) <=0.5 mcg/mL: Susceptible Klebsiella pneumoniae complex Cefazolin SUSCEPTIBILITY, ARA (MCG/ML) <=2 mcg/mL: Susceptible Klebsiella pneumoniae complex Ceftriaxone SUSCEPTIBILITY, ARA (MCG/ML) <=1 mcg/mL: Susceptible Klebsiella pneumoniae complex Ceftazidime SUSCEPTIBILITY, ARA (MCG/ML) <=4 mcg/mL: Susceptible Klebsiella pneumoniae complex Cefepime SUSCEPTIBILITY, ARA (MCG/ML) <=2 mcg/mL: Susceptible Klebsiella pneumoniae complex Cefazolin (Uncomplicated UTI) SUSCEPTIBILITY, ARA (MCG/ML) <=2 mcg/mL: Susceptible Comment: The interpretation applies to uncomplicated urinary tract infections only. It also applies to these oral cephalosporins: cefuroxime, cephalexin, and cefprozil. Klebsiella pneumoniae complex Cefdinir SUSCEPTIBILITY, ARA (MCG/ML) <=1 mcg/mL: Susceptible Klebsiella pneumoniae complex Amikacin SUSCEPTIBILITY, ARA (MCG/ML) <=4 mcg/mL: Susceptible Klebsiella pneumoniae complex Gentamicin SUSCEPTIBILITY, ARA (MCG/ML) <=1 mcg/mL: Susceptible Klebsiella pneumoniae complex Tobramycin SUSCEPTIBILITY, ARA (MCG/ML) <=1 mcg/mL: Susceptible Klebsiella pneumoniae complex Aztreonam SUSCEPTIBILITY, ARA (MCG/ML) <=4 mcg/mL: Susceptible Klebsiella pneumoniae complex Trimethoprim + Sulfamethoxazole SUSCEPTIBILITY, ARA (MCG/ML) <=0.5/9.5 mcg/mL: Susceptible Klebsiella pneumoniae complex Nitrofurantoin SUSCEPTIBILITY, ARA (MCG/ML) <=32 mcg/mL: Susceptible Fady Angelo M.D. LAB MICROBIOLOGY - GENERAL OR DERABLES Final Result [facility] [address] [place] [address], [facility] DTL [place] [address] [place] [address] * (ABNORMAL) Urinalysis, with Microscopic: Urine, Midstream (04/18/2025 11:49 AM CDT) Source Urine, Urine, Midstream 04/18/2025 12:12 PM CDT DTL Color, U Colorless 04/18/2025 12:13 PM CDT DTL Clarity, U Clear 04/18/2025 12:13 PM CDT DTL Protein, U 54(H) <26 mg/dL 04/18/2025 12:59 PM CDT DTL Protein/Osmol ality 2.13(H) <0.42 ratio 04/18/2025 12:59 PM CDT DTL Predicted 24 HR Protein, U 1332(H) <229 mg/24 h 04/18/2025 12:59 PM CDT DTL Predicted Range 329-5391 mg/24 h 04/18/2025 12:59 PM CDT DTL Urine (Urine, Midstream) 04/18/2025 11:49 AM CDT 04/18/2025 12:12 PM CDT us Fady Angelo M.D. LAB URINE ORDERABLES Final Re sult [facility] [address] [place] [address], [facility] DTL [facility] [address] [place] [address] documented in this encounter Visit Diagnoses Diagnosis Diarrhea- Primary documented in this encounter Administered Medications Inactive Administered Medications - up to 3 most recent administrations Medication Order MAR Action Action Date Dose Rate Site ondansetron (PF) injection 4 mg (Zofran) 4 mg, intravenous, Once as needed, nausea, vomiting, Starting on Wed04/18/25 at 1146, For 1 dose, Select antiemetic if IV access obtained. ondansetron ODT disintegrating tablet 4 mg (Zofran-ODT) 4 mg, oral, Once as needed, nausea, vomiting, Starting on Wed04/18/25 at 1146, For 1 dose, Select antiemetic if no IV access. When splitting ODT at bedside, handle with gloves and a pill splitter to prevent moisture contact. sodium chloride 0.9 % injection 10 mL 10 mL, intravenous, As needed, line care, Starting on Wed04/18/25 at 1146, Peripheral Intravenous Catheter and Rapid Infusion Catheter, prior to blood sampling, post blood transfusion or post blood sampling sodium chloride 0.9 % injection 3 mL 3 mL, intravenous, As needed, line care, Starting on Wed04/18/25 at 1146, Prior to and following infusion and between multiple consecutive infusions: sodium chloride 0.9 % injection sodium chloride 0.9 % injection 3 mL 3 mL, intravenous, Every 12 hours scheduled, First dose on Wed04/18/25 at 2100, Peripheral Intravenous Catheter and Rapid Infusion Catheter, when no infusion to maintain patency documented in this encounter Active and Recently Administered Medications Times are shown in CDT. Scheduled Medication Order 04/16/2025 04/17/2025 04/18/2025 NaCl 0.9 % bolus 1,000 mL 1,000 mL, intravenous, at 1,000 mL/hr, Administer over 1 Hours, Once, On Wed04/18/25 at 1148, For 1 dose 1532 (Not Given - Pr ovider: Viky ColemanN. - Reason: Patient/family refused) sodium chloride 0.9 % injection 3 mL 3 mL, intravenous, Every 12 hours scheduled, First dose on Wed04/18/25 at 2100, Peripheral Intravenous Catheter and Rapid Infusion Catheter, when no infusion to maintain patency PRN Medication Order 04/16/2025 04/17/2025 04/18/2025 ondansetron (PF) injection 4 mg (Zofran)(Linked Group 1) 4 mg, intravenous, Once as needed, nausea, vomiting, Starting on Wed04/18/25 at 1146, For 1 dose, Select antiemetic if IV access obtained. ondansetron ODT disintegrating tablet 4 mg (Zofran-ODT)(Linked Group 1) 4 mg, oral, Once as needed, nausea, vomiting, Starting on Wed04/18/25 at 1146, For 1 dose, Select antiemetic if no IV access. When splitting ODT at bedside, handle with gloves and a pill splitter to prevent moisture contact. sodium chloride 0.9 % injection 10 mL 10 mL, intravenous, As needed, line care, Starting on Wed04/18/25 at 1146, Peripheral Intravenous Catheter and Rapid Infusion Catheter, prior to blood sampling, post blood transfusion or post blood sampling sodium chloride 0.9 % injection 3 mL 3 mL, intravenous, As needed, line care, Starting on Wed04/18/25 at 1146, Prior to and following infusion and between multiple consecutive infusions: sodium chloride 0.9 % injection Linked Groups Order Group 1: ondansetron ODT disintegrating tablet 4 mg (Zofran-ODT)Jump to med 4 mg, oral, Once as needed, nausea, vomiting, Starting on Wed04/18/25 at 1146, For 1 dose, Select antiemetic if no IV access. When splitting ODT at bedside, handle with gloves and a pill splitter to prevent moisture contact. Or ondansetron (PF) injection 4 mg (Zofran)Jump to med 4 mg, intravenous, Once as needed, nausea, vomiting, Starting on Wed04/18/25 at 1146, For 1 dose, Select antiemetic if IV access obtained. documented in this encounter Care Teams Pipe Coverer And Insulator Relationship Specialty Start Date End Date Elsewhere, Pcp PCP - General Internal Medicine 04/18/25 documented as of this encounter
--- OUTSIDE RECORDS SUMMARY | 2025-04-29 03:28 | XMS_ITS | Encounter Summary ---
Author Organization [facility] Address [address] [place] [address] Care Team Providers Care Wing Coverer Name Role Phone Elsewhere, Pcp Primary Care Provider Unavailabl e Reason for Referral * Outpatient (Routine) - Authorized Specialty Diagnoses / Procedures Referred By Contac t Referred To Contact Urology Diagnoses Hydronephrosis Yadira Drummond P.A.-C. [address] [place] [phone] Phone: tel: fax: [facility] Referral ID Status Reason Start Date Expiration Date V isits Requested Visits Authorized [id number] Authorized 03/07/2025 09/06/2026 1 1 Scheduling Instructions Please schedule with Dr. Loving * Outpatient (Routine) - Authorized Specialty Diagnoses / Procedures Referred By Contac t Referred To Contact Diagnoses Hydronephrosis Procedures NM Kidney with Lasix Yadira Drummond P.A.-C. [address] [place] [address] Phone: tel: fax: [facility] Referral ID Status Reason Start Date Expiration Date V isits Requested Visits Authorized [id number] Authorized 03/07/2025 06/07/2026 8 8 * Outpatient (Routine) - Authorized Specialty Diagnoses / Procedures Referred By Contac t Referred To Contact Diagnoses Hydronephrosis Procedures URO Uroflow Yadira Drummond P.A.-C. [address] [place] [address] Phone: tel: fax: [facility] Referral ID Status Reason Start Date Expiration Date V isits Requested Visits Authorized [id number] Authorized 03/07/2025 06/07/2026 1 1 * Outpatient (Routine) - Authorized Specialty Diagnoses / Procedures Referred By Contac t Referred To Contact Diagnoses Hydronephrosis Procedures URO Cysto w/retrograde pyelogram Yadira Drummond P.A.-C. [address] [place] [phone] Phone: tel: fax: [facility] Referral ID Status Reason Start Date Expiration Date V isits Requested Visits Authorized [id number] Authorized 03/07/2025 06/07/2026 1 1 * Outpatient (Routine) - Closed Specialty Diagnoses / Procedures Referred By Contac t Referred To Contact Radiology Diagnoses Hydronephrosis Procedures IR Nephrostomy Tube Check Right Yadira Drummond P.A.-C. [address] [place] [phone] Phone: tel: fax: [facility] Referral ID Status Reason Start Date Expiration Date Visits Re quested Visits Authorized [id number] Closed 03/07/2025 06/07/2026 1 1 * MRI/CAT/PET Scan (Routine) - Authorized Specialty Diagnoses / Procedures Referred By Contac t Referred To Contact Radiology Diagnoses Hydronephrosis Procedures CT Urogram without and with IV Contrast Yadira Drummond P.A.-C. [address] [place] [phone] Phone: tel: fax: [facility] Referral ID Status Reason Start Date Expiration Date V isits Requested Visits Authorized [id number] Authorized 03/07/2025 06/07/2026 1 1 Encounter Details Date Type Department Care Team (Late st Contact Info) Description 03/07/2025 Orders Only Department of Urology in [place], [place] [address] [place] [address] Yadira Drummond P.A.-C. [address] [place] [phone] Hydronephrosis (Primary Dx) Social History Tobacco Use Types Packs/Day Years Used Date Smoking Tobacco: Never Smokeless Tobacco: Never Alcohol Use Standard Drinks/Week Comments Not Currently 0 (1 standard drink = 0.6 oz pur e alcohol) [facility] Utilities Answer Date Recorded In the past 12 months has e [employer], gas, oil, or water [place] Self Representation Document Preparation threatened to shut off services in your [...] your living situation today? I have a ezequiel place to live 03/06/2025 Education Answer Date Recorded What is the highest level of school you have completed or the highest degree you have received? Associate degree: occupational, technical, or vocational program 05/27/2020 Comments No Sex and Gender Information Value Date Recorded Sex Assigned at Female 02/19/2025 10:16 AM CDT Legal Sex Female 2:16 PM MARKER MACHINE Gender Identity Female 02/19/2025 10:16 AM CDT Sexual Orientation Straight 02/19/2025 10 :16 AM CDT documented as of this encounter Plan of Treatment Upcoming Encounters Date Type Department Care Team (Late st Contact Info) Description 05/08/2025 7:10 AM CDT Appointment Department of Laboratory Medicine and Pathology, [facility] in [place], [place] [address] [place] [address] Yadira Drummond, P.A.-C. [address] [place] [phone] 05/08/2025 9:30 AM CDT Appointment Department of Radiology, [facility] in [place], [place] [address] [place] [address] Yadira Drummond, P.A.-CFei [address] [place] [phone] 05/08/2025 1:30 PM CDT Procedure visit Department of Urology in [place], [place] [address] [place] [address] Yadira Drummond, P.A.-C. [address] [place] [phone] 05/08/2025 2:30 PM CDT Appointment Department of Radiology, [facility], in [place], [place] [address] [place] [address] Yadira Drummond P.A.-C. [address] [place] [phone] 05/09/2025 9:30 AM CDT Procedure visit Department of Urology in [place], [place] [address] [place] [phone] Rupert Loving M.D. [address] [place] [phone] 05/09/2025 10:00 AM CDT Comprehensive Visit Department of Urology in [place], [place] [address] [place] [address] Rupert Loving M.D. [address] [place] [phone] Scheduled Orders Name Type Priority Associated Diagnoses Order Schedule Basic Metabolic Panel Lab Routine Hydronephrosis Expected: 04/18/2025, Expires: 06/07/2026 Cystatin C with Estimated GFR Lab Routine Hydronephrosis Expected: 04/18/2025, Expires: 06/07/2026 CT Urogram without and with IV Contrast Imaging RAD - Routine (most inpatients and all outpatients) Hydronephrosis Expected: 04/18/2025, Expires: 06/07/2026 URO Uroflow Procedure Routine Hydronephrosis Expected: 04/18/2025, Expires: 06/07/2026 NM Kidney with Lasix Imaging RAD - Routine (most inpatients and all outpatients) Hydronephrosis Expected: 04/18/2025, Expires: 06/07/2026 Scheduled Referrals Name Type Priority Associated Diagnoses Orde r Schedule Urology - Other/benign - kidney / ureter consult (clinic) Outpatient Referral Routine Hydronephrosis Expected: 04/18/2025, Expires: 06/07/2026 documented as of this encounter Results * IR Nephrostomy Tube [...] like the retention stitch replaced. TECHNIQUE: Fluoroscopic clinic mgr image demonstrates a right nephrostomy tube in [...] would like theretention stitch replaced. TECHNIQUE: Fluoroscopic clinic mgr image demonstrates a right nephrostomy tubein place. [...] for a 2- 0 silk stitch. NR us Yadira Drummond P.A.-C. IMZane IR PROCEDURES Final Result documented in this encounter Visit Diagnoses Diagnosis Hydronephrosis- Primary Hydronephrosis documented in this encounter Care Teams Wing Coverer Relationship Specialty Start Date End Date Elsewhere, Pcp PCP - General Internal Medicine 03/06/25 04/17/25 documented as of this encounter
--- OUTSIDE RECORDS SUMMARY | 2025-04-29 03:28 | XMS_ITS | Patient Health Record ---
Author Organization [email or web address] Address [address] [place] [address] Care Team Providers Care Wire Galvanizer Name Role Phone Lars EASTON, [place] Unavailable [phone] Eva Agarwal Unavailable Unavailab le Migration, Provider Unavailable Unavailable Reason For Referral No Information Medications Medication SIG (Take, Route, Frequency, Duration) Notes Start Date End Date Status Synthroid 88 MCG Tablet Oral once a day 12/04/2022 Active traMADol HCl 50 MG Tablet Oral 12/09/2022 Active Xarelto 20 MG Tablet Oral 12/21/2022 Active Ondansetron 4 MG Tablet Disintegrating Oral 11/05/2022 Active Sotalol HCl 80 MG Tablet Take 0.5 tablet s (40 mg total) by mouth every 12 (twelve) hours Oral once a day 12/28/2022 Active Omeprazole 20 MG Tablet Ema yed Release Disintegrating Oral as needed 12/11/2019 Act paul hydroCHLOROthiazide 12.5 MG Tablet Oral as needed 12/01/2019 Active Losartan Potassium 25 MG Tablet Oral once a day Active Social History Social History Additional Details Category Social Info Options Details Migrated Social History Migrated Social History caffeine use, does not live alone, good exercise habits, no exercise habits, no physical disability, no tobacco use, not a current smoker, not using alcohol, not using drugs, smoking status : Never smoker Problems Problem Type SNOMED Code ICD Code Onset Dates Problem Status W/U Status Risk Notes Problem Essential hypertension (96317264) Essential (primary) hypertension (I10) 0 Active confirmed Problem Paroxysmal atrial fibrillation (342248870) Paroxysmal atrial fibrillation (I48.0) 3 Active confirmed Encounters Encounter Location Date Provider Diagnosis [email or web address] [address] [place] [address] 01/27/2025 Provider Migration [facility] [address] [place] [address] 01/28/2025 Provider Migration Plan Of Treatment No Information Insurance Providers Payer Name Payer Address Payer Phone Subscriber Number Group Number Insured Name Patient Relationship to Insured Coverage Start Date Coverage End Date Medicare Part B [address] [address] [place] [address] [id number] Sun Singh Self - patient is the insured [facility] [address] [place] [address] [phone] [id number] [phone] Sun Singh Self - patient is the insured
--- OUTSIDE RECORDS SUMMARY | 2025-04-29 03:28 | XMS_ITS | Clinical Summary ---
Author Organization [facility] [place] [place] Address [address] [place] [address] Phone Care Team Providers Care Colorist Name Role Phone Joann Motta DO Primary Care Provider [phone] Allergies Active Allergy Reactions Criticality Noted Date Comments Abdon Inhibitors Other (see comments) 10/22/2006 Amlodipine Swelling 02/06/2025 Apixaban Diarrhea 07/09/2022 Cat Dander Other (see comments) 01/31/2015 Dust Mite Extract Anaphylaxis,Other (s ee comments) High 01/31/2015 Hyoscyamine Rash Low 10/22/2006 Levofloxacin Rash Low 03/05/2025 Metoprolol GI intolerance,Nausea,Othe r (see comments),Palpitations, Swelling Low 03/01/2009 Other Reaction(s): Bradycardia Reflux, leg swelling Medications Synthroid 88 MCG tablet Take 88 mcg by mouth in the morning. 11/22/2022 Active dabigatran etexilate (PRADAXA) 75 MG capsule Take 75 mg by mouth in the morning and 75 mg in the evening. 03/07/2025 Active metoprolol tartrate 25 MG tablet Take 12.5 mg by mouth in the morning and 12.5 mg in the evening. 03/07/2025 Active oxyCODONE (ROXICODONE) 5 MG immediate release tablet Take 5 mg by mouth every 30 minutes as needed 03/02/2025 Active losartan (COZAAR) 50 MG tablet Take 50 mg by mouth 1 (one) time each day Active Active Problems Problem Noted Date Diagnosed Date Paroxysmal atrial fibrillation 03/08/2025 Assessment & Plan (03/08/2025 3:43 PM CDT): Stable. Follows with [facility]. Sinus rhythm on examination today. Stage 3b chronic kidney disease 03/05/2025 Overview (03/07/2025): Creatinine 0.9-1.1 from [id number]. Creatinine 1.25 in July 2023 Creatinine in the middle-high ones from February 2024-January 2025. Urinalysis from April 2024 with absence of protein but white blood cells at 6- 10 WBCs per high-powered field with moderate bacteria; Urinalysis from May 2024 with 2+ protein, 2+ occult blood and 3+ leukocyte esterase. Both urine samples positive for bacteria with former with E. coli and the latter with Pseudomonas aeruginosa. Renal ultrasound 2019: Left kidney 9.1 cm and right kidney 9.3 cm; no hydronephrosis in either kidney. Renal ultrasound November 2023: Right kidney with diminished hydronephrosis at 11.1 cm; left kidney with no hydronephrosis at 10.1 cm. Renogram (furosemide) split function: Left at 73% and right at 27% with no evidence of obstruction. Etiology of CKD: Small vessel disease, hypertensive nephrosclerosis, recurrent UTIs, age-related nephron senescence, and as well as obstructive uropathy. Baseline hemoglobin in the middle-high ones since February 2024. Assessment & Plan (03/08/2025 3:46 PM CDT): Stable. Blood work from this month revealing stability in GFR in the 30s range. Etiology of CKD as described above. Wheeler moving forward is to secure and maintain GFR for as long as possible. Appropriate to maintain on losartan at this time. Based on the potential need for ureteral repair surgery, I would refrain from the administration of SGLT2 inhibitor. Follow potassium and creatinine very closely and if we are noticing steady rises in either, low threshold to change out the losartan for non-RAAS inhibitor management. Tentative follow-up in June 2025 prior to her planned travel for [place] in July for 6 months to follow. Anemia in chronic kidney disease 03/05/2025 Overview (03/05/2025): Baseline hemoglobin in the mid tens-11 range. Ferritin 125 in April 2023 Most recent hemoglobin 10.5 from December 2023. Hypertensive heart and chron ic kidney disease without heart failure, with stage 1 through stage 4 chronic kidney disease, or unspecified chronic kidney disease 03/05/2025 Overview (03/05/2025): Echocardiogram January 2024: EF 60-65% with aortic valve sclerosis present and mild AR. Normal plasma metanephrines, aldosterone 11, renin 39, and renal arterial Doppler study without evidence of renal artery stenosis, all performed at [facility] 2019. Assessment & Plan (03/08/2025 3:45 PM CDT): Stable. I would not treat any more aggressively. Recommend systolic blood pressure ranging between 130-160 for the time being, especially since she has procedures soon. Notable for a 13 pound weight gain in the past few weeks. Suspect combination of temporary GFR compromise plus bout of tachyarrhythmia contributing. I asked patient to follow this closely and if she is experiencing ongoing weight gain and/or notices issues with breathing, to keep a very low threshold to inform us and would recommend initiation of diuretic to manage. Generalized degenerative joint disease Encounters Date Type Department Care Team Description 03/08/2025 2:30 PM CDT Office Visit [facility] [place] [id number] Zachariah Porter MD Stage 3b chronic kidney disease (HCC) (Primary Dx); Anemia in chronic kidney disease; Hypertensive heart and chronic kidney disease without heart failure, with stage 1 through stage 4 chronic kidney disease, or unspecified chronic kidney disease; Paroxysmal atrial fibrillation (HCC) 03/08/2025 Documentation Only [facility] [place] [address] Jean Pierre Das 02/01/2025 Office Communication [facility] [address] [place] [address] Kate Kang 02/01/2025 Transcribe Orders [facility] [address] [place] [id number] Joann Motta DO 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) (Primary Dx); Acquired stricture of ureter 02/01/2025 Documentation Only [facility] [place] [address] [place] [address] No, Pcp 02/01/2025 Documentation Only [facility] [place] [address] [place] [address] No, Pcp 02/01/2025 Documentation Only [facility] [place] [address] [place] [address] No, Pcp from Last 3 Months Family History Medical History Relation Comments Cancer Brother Heart disease Brother Heart disease Father Heart disease Father's Brother No Known Problems Maternal Grandfather No Known Problems Maternal Grandmother Cancer Mother Heart disease Mother's Brother No Known Problems Mother's Sister No Known Problems Paternal Grandfather Stroke Paternal Grandmother Relation Status Comments Brother Father Father's Brother Maternal Grandfather Maternal Grandmother Mother Mother's Brother Mother's Sister Paternal Grandfather Paternal Grandmother Social History Tobacco Use Types Packs/Day Years Used Date Smoking Tobacco: Never Smokeless Tobacco: Never Tobacco Cessation:Counseling Given: Not Answered Alcohol Use Standard Drinks/Week Comments Never 0 (1 standard drink = 0.6 oz pur e alcohol) Comments Unknown Sex and Gender Information Value Date Recorded Sex Assigned at Not on file Legal Sex Female 2:21 PM EDT Gender Identity Not on file Sexual Orientation Not on file Last Filed Vital Signs Vital Sign Reading Time Taken Comments Blood Pressure 155/68 03/08/2025 2:31 PM CDT Pulse 61 03/08/2025 2:31 PM CDT Temperature - - Respiratory Rate - - Oxygen Saturation - - Inhaled Oxygen Concentration - - Weight 78 kg (172 lb) 03/08/2025 2:31 PM CDT Height 162.6 cm (5' 4) 03/08/2025 2:31 PM CDT Body Mass Index 29.52 03/08/2025 2:31 PM CDT Plan of Treatment Upcoming Encounters Date Type Department Care Team (Late st Contact Info) Description 07/19/2025 2:00 PM CDT Office Visit [facility] [place] [place] [address] [place] [phone] Zachariah Porter MD [address] [place] [address] Health Maintenance Due Date Last Done Comments Pneumococcal Vaccine: 50+ Years (1 of 2 - PCV) 959 Hepatitis B Vaccine (1 of 3 - Risk 3-dose series) 03/27 Influenza Vaccine (#1) 2025 Insurance [facility] Medicare Care Teams Colorist Relationship Specialty Start Date End Date Joann Motta DO [address] [facility] [address] PCP - General Family Medicine 02/01/25
--- OUTSIDE RECORDS SUMMARY | 2025-04-29 03:28 | XMS_ITS | Clinical Summary ---
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 For routine questions regarding patient records, call [phone] during business hours, M-F 8:00 AM - 5:00 PM Central Time. Record requests for emergency care only can be directed to [phone] at any time.[facility] Allergies Active Allergy Reactions Criticality Noted Date Comments Abdon Inhibitors Cough 10/22/2006 Amlodipine Edema (Reselect Reaction) 02/06/2025 Apixaban Diarrhea 07/09/2022 Cat Dander Wheezing (Reselect Reaction) 01/31/2015 House Dust Other (see comments) 01/31/2015 Hyoscyamine Rash 10/22/2006 Levofloxacin Rash 03/05/2025 Metoprolol Palpitations,Edema (Reselect Reaction),GI intolerance 03/01/2009 Reflux, leg swelling Medications cholecalcifero l (VITAMIN D3) tablet Take by mouth. 5 Active SYNTHROID 100 mcg tablet Take 88 mcg by mouth daily before morning meal. 9 Active losartan (COZAAR) 25 mg tablet Take 50 mg by mouth daily. 8 Active oxyCODONE (Roxicodone) 5 mg immediate release tablet Take 5 mg by mouth every 4 (four) hours as needed. 5 Active cyclobenzaprin e (FlexeriL) 10 mg tablet Take 10 mg by mouth at bedtime as needed. 5 Active albuterol 2.5 mg /3 mL nebulizer solution Inhale 2.5 mg every 4 (four) hours as needed. 4 Active magnesium oxide (Mag-Ox) 400 mg (241.3 mg magnesium) tablet Take 400 mg by mouth at bedtime. Active polyethylene glycol 400 0.25 % drops,gel Administer 1-2 drops into affected eye(s) every 6 (six) hours as needed (Dry or irritated eyes). Active zinc sulfate (Zinc-220) 220 (50 mg zinc) capsule 220 mg daily. Active metoprolol tartrate (Lopressor) 25 mg tablet Take 0.5 tablets (12.5 mg total) by mouth 2 (two) times a day. 30 tablet 11 03/07/2025 5:01 PM CDT 5 Active dabigatran etexilate (Pradaxa) 75 mg capsule Take 1 capsule (75 mg total) by mouth 2 (two) times a day. 60 capsule 5 Active Additional Information Patient not taking.Reported on 04/18/2025 DME Urological suppliesIndica tions:Obstruct ion Kidney,Hydrone phrosis DME Order 1 Unspecified 5 5 Active hydrocortisone 1 % cream Apply 1 Application topically 2 (two) times a day. Apply to right leg. 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 Ferritin 125 in April 2023 Most recent hemoglobin 10.5 from December 2023. Chronic Kidney Disease (CKD) , Stage 3b Glomerular Filtration Rate (GFR) 30 To 44 03/05/2025 Overview (03/06/2025): Creatinine 0.9-1.1 from 5466-9027. Creatinine 1.25 in July 2023 Creatinine in [...] at 27% with no evidence of obstruction. 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 laure 02/17/2024 Hypertensive Urgency 02/17/2024 Kidney And Ureter Disorder 02/17/2024 Presence Of Urogenital Implants 02/17/2024 Asthma 02/16/2024 Injury Head Initial 02/16/2024 Other Nonspecific Abnormal Finding Of Lung Field 02/16/2024 Transient Ischemic Attack 02/16/2024 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 12/24/2023 Leukocytosis 12/24/2023 Pyelonephritis 12/24/2023 Hypertensive Chronic Kidney Disease With Stage 5 Chronic Kidney Disease Or End Stage Renal Disease 01/05/2022 Nonrheumatic Aortic Valve Insufficiency 12/09/19 Nonrheumatic Mitral Valve Insufficiency 12/09/19 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 10/23/2021 Gastroesophageal Reflux Disease Without Esophagi tis 10/23/2021 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 Bacterial Culture, Aerobic + Susceptibility, Urine 04/18/2025 11:33 AM CDT - 04/18/2025 5:25 PM CDT Emergency [facility] Emergency Department [address] [place] [phone] Fady Angelo M.D. Diarrhea (Primary Dx) Discharge Disposition: Home or Self Care 04/04/2025 9:45 AM CDT - 04/04/2025 10:57 AM CDT Hospital Encounter Department of Radiology, [place], [place] [address] [place] [phone] Yadira Drummond P.A.-C. Fleming, Chad J, M.D. Hydronephrosis Discharge Disposition: Home or Self Care 03/20/2025 Results Follow-Up [facility] 505 Shannon Kruger APRN, C.N.P., M.S.N. CBC without Differential 03/19/2025 3:12 PM CDT - 03/19/2025 11:59 PM CDT Hospital Encounter Department of Laboratory Medicine in [address] [phone] Shannon Kruger APRN, C.N.P., M.S.N. Obstruction Ureter; Obstruction Kidney; Hematuria Discharge Disposition: Home or Self Care 03/19/2025 Orders Only Department of Radiology, [facility], in [place], [place] [address] [place] [phone] Shannon Kruger APRN, C.N.P., M.S.N. Hydronephrosis (Primary Dx); Obstruction Kidney 03/09/2025 1:30 PM CDT Telemedicine Department of Urology in [place], [place] [address] [place] [phone] Yadira Drummond P.A.-C. Franson, Jane E, R.N. Hydronephrosis (Primary Dx); Obstruction Kidney 03/07/2025 Orders Only Department of Urology in [place], [place] [address] [place] [phone] Yadira Drummond P.A.-C. Hydronephrosis (Primary Dx) 03/06/2025 12:40 PM CDT - 03/06/2025 1:12 PM CDT Emergency [facility] Emergency Department [address] [place] [phone] Discharge Disposition: ED Dismiss - Never Arrived 03/06/2025 8:20 AM CDT - 03/07/2025 4:49 PM CDT Hospital Encounter [facility], [facility], [facility], Fourth Floor [address] [place] [phone] Yadira Drummond P.A.-C. Juliet Mehta M.D., M.H.A. Martha Weller M.D., J.D. Thierno Pena M.D., M.S. Fawad Whitlock M.D. Atrial Fibrillation Unspecified (HCC) (Primary Dx); Obstruction Kidney Discharge Disposition: Home or Self Care 03/06/2025 Orders Only Department of Radiology, [facility], in [address] [phone] Alisha Hays APRN, C.N.P., M.S. Obstruction Ureter (Primary Dx) 03/05/2025 2:00 PM CDT Comprehensive Visit Department of Radiology, [facility], in [address] [phone] Shannon Kruger APRN, C.N.P., M.S.N. Obstruction Ureter (Primary Dx); Obstruction Kidney 02/28/2025 Orders Only Department of Urology in [place], [place] [address] [place] [phone] Yadira Drummond P.A.-C. Obstruction Kidney (Primary Dx) 02/26/2025 Orders Only Department of Urology in [place], [place] [address] [place] [phone] Yadira Drummond P.A.-C. Obstruction Kidney (Primary Dx) 02/21/2025 10:15 AM CDT Comprehensive Visit Department of Urology in [place], [place] [address] [place] [phone] Yadira Drummond P.A.-C. Obstruction Kidney (Primary Dx) 02/20/2025 1:12 PM CDT - 02/20/2025 11:59 PM CDT Hospital Encounter Department of Radiology, [place], [place] [address] [place] [phone] Yadira Drummond P.A.-C. Obstruction Kidney Discharge Disposition: Home or Self Care 02/20/2025 12:38 PM CDT - 02/20/2025 1:11 PM CDT Hospital Encounter Department of Laboratory Medicine and Pathology, [facility] in [place], [place] [address] [place] [phone] Yadira Drummond P.A.-C. Obstruction Kidney Discharge Disposition: Home or Self Care 02/13/2025 Orders Only Department of Urology in [place], [place] [address] [place] [phone] [facility], ProviderMD Obstruction Kidney from Last 3 Months Immunizations Immunization Administration Dates Next Due HZV (ZOSTAVAX) 01/26/2008 PPSV23 09/15/2005 Td (Adult), adsorbed 01/26/2008 Family History Medical History Relation Name Comments Parkinsonism Brother 1 Marvy Heart attack Brother 2 Olegario Coronary artery disease Father Nabil age 67 for heart attack Other cancer Mother [place] Thyroid disease Mother Diane Relation Name Status Comments Brother 1 Marvy Brother 2 Olegario Alive Had NC at 37 bu t was smoker Father Nabil Mother Diane Social History Tobacco Use Types Packs/Day Years Used Date Smoking Tobacco: Never Smokeless Tobacco: Never Tobacco Cessation:Counseling Given: Not Answered Alcohol Use Standard Drinks/Week Comments Not Currently 0 (1 standard drink = 0.6 oz pur e alcohol) [facility] Utilities Answer Date Recorded In the past 12 months has e [employer], gas, oil, or water [employer] threatened to shut off services in your [...] your living situation today? I have a [facility] place to live 03/06/2025 Education Answer Date Recorded What is the highest level of school you have completed or the highest degree you have received? 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 Gender Identity Female 02/19/2025 10:16 AM CDT Sexual Orientation Straight 02/19/2025 10 :16 AM CDT Last Filed Vital Signs Vital Sign Reading [...] Mass Index 29.78 04/18/2025 11:36 AM CDT Plan of Treatment Upcoming Encounters Date Type Department Care Team (Late st Contact Info) Description 05/08/2025 7:10 AM CDT Appointment Department of Laboratory Medicine and Pathology, [facility] in [place], [place] [address] [place] [phone] Yadira Drummond P.A.-CFei [address] [place] [phone] 05/08/2025 9:30 AM CDT Appointment Department of Radiology, [facility] in [place], [place] [address] [place] [phone] Yadira Drummond P.AFei-C. [address] [place] [phone] 05/08/2025 1:30 PM CDT Procedure visit Department of Urology in [place], [place] [address] [place] [phone] Yadira Drummond P.A.-CFei [address] [place] [phone] 05/08/2025 2:30 PM CDT Appointment Department of Radiology, [facility], in [place], [place] [address] [place] [phone] Yadira Drummond P.A.-CFei [address] [place] [phone] 05/09/2025 9:30 AM CDT Procedure visit Department of Urology in [place], [place] [address] [place] [phone] Rupert Loving M.D. [address] [place] [phone] 05/09/2025 10:00 AM CDT Comprehensive Visit Department of Urology in [place], [place] [address] [place] [phone] Rupert Loving M.D. [address] [place] [phone] Health Maintenance Due Date Last Done Comments Office Visit for Blood Pressure Check / Re-check 1940 DTaP,Tdap,and Td Vaccines (1 - Tdap) 01/27/2008 01/26/2008 Zoster Vaccines (2 of 3) 03/22/2008 01/26/2008 RSV vaccine - (32-36 weeks) or 60+ years (1 - 1-dose 75+ series) 2015 COVID-19 Vaccine ( - season) 2024 Depression Screening (Annual PHQ-2) 09/27/2024 Influenza Vaccine (#1) 2025 6, 06/24/2015, 07/17/2014, Additional history exists Thyroid Stimulating Hormone (TSH) test for thyroid function 07/25/2025 07/25/2024, 02/17/2024, 07/28/2023, Additional history exists Creatinine Level (Kidney Function Test) 04/18/2026 04/18/2025, 03/07/2025, 03/06/2025, Additional history exists Potassium Level 04/18/2026 04/18/2025, 02/25, 03/06/2025, Additional history exists Sodium Level 04/18/2026 04/18/2025, 02/25, 03/06/2025, Additional history exists Pneumococcal vaccine (50+ years) Completed 04/20/2017, 09/15/2005 Fall Risk Screen (Annual) Completed 04/04/2025 IPV Vaccines Aged Out No longer eligi ble based on patient's age to complete this topic Medical Devices Implanted Type Area Winding Operator Device Identifier Shelf Expiration Date Model / Serial / Lot Conversions - Default Historical Implant Device Implanted:04/18 (Quantity not on file) Knee Implant Left: Knee Description:Body Location - Knee L. LT TKA 1997. Device Status Text - Knee Joint. Procedures Procedure Name Priority Date/Time Associated Diagnosis Comments GI PATHOGEN PANEL, PCR, F Routine 04/18/2025 3:29 PM CDT PROTHROMBIN TIME (PT), P STAT 04/18/2025 12:39 PM CDT LACTATE FOR SEPSIS WITH REFLEX STAT 04/18/2025 12:39 PM CDT CBC WITH DIFFERENTIAL, B STAT 04/18/2025 12:39 PM CDT LIPASE, S/P STAT 04/18/2025 12:39 PM CDT HEPATIC FUNCTION PANEL, S STAT 04/18/2025 12:39 PM CDT BASIC METABOLIC PANEL, S/P STAT 04/18/2025 12:39 PM CDT MICROSCOPIC MANUAL STAT 04/18/2025 11:49 AM CDT DIPSTICK, U STAT 04/18/2025 11:49 AM CDT OSMOLALITY, U STAT 04/18/2025 11:49 AM CDT PH, U STAT 04/18/2025 11:49 AM CDT URINALYSIS WITH MICROSCOPIC STAT 04/18/2025 11:49 AM CDT BACTERIAL CULTURE, AEROBIC + SUSC, URINE STAT 04/18/2025 11:49 AM CDT IR NEPHROSTOMY TUBE CHECK RIGHT RAD - Routine (most inpatients and all outpatients) 04/04/2025 10:40 AM CDT Hydronephrosis CBC WITHOUT DIFFERENTIAL, B Routine 03/19/2025 3:18 PM CDT Obstruction Ureter Obstruction Kidney Hematuria (TTE) 2D ECHO DOPPLER COLOR Routine 03/07/2025 2:17 PM CDT TROPONIN T, 5TH GEN, P Timed 03/07/2025 12:11 PM CDT BASIC METABOLIC PANEL, S/P Routine 03/07/2025 7:52 AM CDT CBC WITHOUT DIFFERENTIAL, B Routine 03/07/2025 7:52 AM CDT TROPONIN T, 5TH GEN, P Timed 03/07/2025 7:51 AM CDT TROPONIN T, 6H, 5TH GEN, P Timed 03/06/2025 7:55 PM CDT ECG STAT 03/06/2025 6:18 PM CDT ACTIVATED PARTIAL THROMBOPLASTIN TIME (APTT), P Timed 03/06/2025 5:46 PM CDT ADULT OXYGEN THERAPY Routine 03/06/2025 5:41 PM CDT ADULT OXYGEN THERAPY Routine 03/06/2025 5:41 PM CDT ADULT OXYGEN THERAPY Routine 03/06/2025 5:41 PM CDT ACTIVATED PARTIAL THROMBOPLASTIN TIME (APTT), P STAT 03/06/2025 3:54 PM CDT CBC WITH DIFFERENTIAL, B STAT 03/06/2025 3:54 PM CDT TROPONIN T, 2H/6H REFLEX, 5TH GEN, P Timed 03/06/2025 3:54 PM CDT CRITICAL CARE Routine 03/06/2025 2:41 PM CDT DX CHEST AP OR PA AND LATERAL 2 VIEWS RAD - Semiurgent (Fast; most ED patients; some inpatients) 03/06/2025 2:04 PM CDT TROPONIN T, BASELINE, 5TH GEN, P STAT 03/06/2025 1:50 PM CDT BASIC METABOLIC PANEL, S/P STAT 03/06/2025 1:50 PM CDT ECG Routine 03/06/2025 1:22 PM CDT ECG STAT 03/06/2025 12:26 PM CDT IR NEPHROURETERAL STENT REMOVAL RIGHT RAD - Routine (most inpatients and all outpatients) 03/06/2025 12:13 PM CDT Obstruction Kidney IR NEPHROSTOMY TUBE PLACEMENT RIGHT RAD - Routine (most inpatients and all outpatients) 03/06/2025 12:13 PM CDT Obstruction Kidney BASIC METABOLIC PANEL, S/P Routine 03/05/2025 2:35 PM CDT Obstruction Ureter Obstruction Kidney CBC WITHOUT DIFFERENTIAL, B Routine 03/05/2025 2:35 PM CDT Obstruction Ureter Obstruction Kidney BACTERIAL CULTURE, AEROBIC + SUSC, URINE Routine 02/21/2025 11:26 AM CDT Obstruction Kidney NM KIDNEY WITH LASIX RAD - Routine (most inpatients and all outpatients) 02/20/2025 3:58 PM CDT Obstruction Kidney DIPSTICK, U Routine 02/20/2025 1:01 PM CDT OSMOLALITY, U Routine 02/20/2025 1:01 PM CDT PH, U Routine 02/20/2025 1:01 PM CDT MICROSCOPIC AUTOMATED Routine 02/20/2025 1:01 PM CDT URINALYSIS WITH MICROSCOPIC Routine 02/20/2025 1:01 PM CDT Obstruction Kidney THYROID FUNCTION CASCADE, S Routine 05/28/2020 3:44 PM CDT Hypertension And Chronic Kidney Disease Stage 1 To 4 Pain Chest Nodule Pulmonary Obesity Body Mass Index 30-39.9 Adult Apnea Sleep Obstructive from Last 3 Months or Most Recently Relevant to Health Maintenance Results * GI Pathogen Panel, PCR, Feces [...] This assay is performed using the FDA-cleared [employer] Online[employer] GI Panel ([employer] Stool (Stool) 04/18/2025 3:2 9 PM CDT 04/18/2025 4:02 PM CDT Merna Mcclellan P.A.-C., M.S. LAB MICROBIOLOGY - GENERAL ORDERABLES Final Result Performing Organization Address [facility]/ZIP Co de Phone Number [address] DTL [address] [place] [address] * Lactate for Sepsis with Reflex (04/18/2025 12:39 PM CDT) Lactate, P 0.8 0.5 - 2.2 mmol/L 04/18/2025 12:59 PM CDT STMA Blood (Blood, Venous) 04/18/2025 12:39 PM CDT 04/18/2025 12:44 PM CDT Fady Angelo M.D. LAB BLOOD NON ADD-ON Final Re sult Performing Organization Address [facility]/ZIP Co de Phone Number [address] [place] [address] * (ABNORMAL) Hepatic Function Panel (04/18/2025 12:39 [...] BLOOD ADD-ON Final Result Performing Organization Address [facility]/State/ZIP Co de Phone Number [facility] [address] [place] [address], [facility] [address] [place] [address] * Prothrombin Time (PT) (04/18/2025 12:39 PM [...] Angelo M.D. LAB BLOOD ADD-ON Final Result [facility] [address] [place] [address], [place] STMA [facility] [address] [place] [address] * (ABNORMAL) CBC with Differential, Blood (04/18/2025 12:39 PM CDT) Only the most recent of2 resultswithin the time period is included. Pathologist [facility] [place] Hemoglobin 9.8(L) 11.6 - 15.0 g/dL 04/18/2025 [...] BLOOD ADD-ON Final Result Performing Organization Address City/[facility]/ZIP Co de Phone Number [facility] [address] [place] [address], [facility] STMA [facility] [address] [place] [address] DHPM [facility] [address] [place] [phone] * Lipase (04/18/2025 12:39 PM CDT) Lipase, S 41 13 - 60 U/L 04/18/2025 1: 34 PM CDT DTL Blood (Blood, Venous) 04/18/2025 12:39 PM CDT 04/18/2025 12:48 PM CDT Fady Angelo M.D. LAB BLOOD ADD-ON Final Result Performing Organization Address [facility] Co de Phone Number [facility] [address] [place], [place] [address] [place] [address] * (ABNORMAL) Basic Metabolic Panel (04/18/2025 12:39 PM CDT) Only the most recent of4 resultswithin the time period is included. Potassium, P 4.7 3.6 - 5.2 mmol/L [...] BLOOD ADD-ON Final Result Performing Organization Address City/[facility]/ZIP Co de Phone Number [facility] [address] [place] [address], [facility] [address] [place] [address] * (ABNORMAL) Dipstick, Urine (04/18/2025 11:49 AM CDT) Only the most recent of2 resultswithin the time period is included. Hemoglobin, QL, U Trace(A) Negative 04/18/2025 12:26 [...] M.D. LAB URINE ORDERABLES Final Re sult [facility] [address] [place] [address], [facility] [address] [place] [address] * (ABNORMAL) Microscopic Manual (04/18/2025 11:49 AM CDT) Microscopy Abnormal 04/18/2025 1:03 PM CDT DTL RBC <3 <3 /hpf 04/18/2025 1:03 PM CDT DTL WBC 4-10 /hpf 04/18/2025 1:03 PM CDT DTL Comment: ----REFERENCE VALUE---- <4 (Males) <11 (Females) Bacteria Present(A) 04/18/2025 1:03 PM CDT DTL Urine 04/18/2025 11:4 9 AM CDT 04/18/2025 12:26 PM CDT Fady Angelo M.D. LAB URINE ORDERABLES Final Re sult [facility] [address] [place], [place] [address] [address] [place] [address] * (ABNORMAL) Bacterial Culture, Aerobic + Susceptibility, Urine (04/18/2025 11:49 AM CDT) Only the most recent of2 resultswithin the time period is included. Urine Culture ENTEROBACTER CLOACAE COMPLEX >100,000 cfu/mL [...] MICROBIOLOGY - GENERAL OR DERABLES Final Result [facility] [address] [place] [address], [facility] [address] [place] [address] * pH, Urine (04/18/2025 11:49 AM CDT) Only the most recent of2 resultswithin the time period is included. pH, U 6.8 4.5 - 8.0 04/18/2025 12: 33 PM CDT DTL Urine 04/18/2025 11:4 9 AM CDT 04/18/2025 12:13 PM CDT Fady Angelo M.D. LAB URINE ORDERABLES Final Re sult Performing Organization Address [facility]/RUST de Phone Number [facility] [address] [place] [address] * Osmolality, Urine (04/18/2025 11:49 AM CDT) Only the most recent of2 resultswithin the time period is included. Pathologist [facility] Osmolality, U 253 150 - 1150 mOsm/kg 04/18/2025 12:33 PM CDT DTL Urine 04/18/2025 11:4 9 AM CDT 04/18/2025 12:13 PM CDT Fady Angelo M.D. LAB URINE ORDERABLES Final Re sult Performing Organization Address [facility]/RUST de Phone Number [facility] [address] [place] [address] * (ABNORMAL) Urinalysis, with Microscopic: Urine, Midstream (04/18/2025 11:49 AM CDT) Only the most recent of2 resultswithin the time period is included. Source Urine, Urine, Midstream 04/18/2025 12:12 PM [...] M.D. LAB URINE ORDERABLES Final Re sult [facility] [address] [place] [address], [facility] DTL [facility] [address] [place] [address] * IR Nephrostomy Tube Check Right (04/04/2025 [...] like the retention stitch replaced. TECHNIQUE: Fluoroscopic mechanical supervisor image demonstrates a right nephrostomy tube in [...] would like theretention stitch replaced. TECHNIQUE: Fluoroscopic mechanical supervisor image demonstrates a right nephrostomy tubein place. [...] silk stitch. NR us Yadira Drummond P.A.-C. IMG IR PROCEDURES Final Result * (ABNORMAL) CBC without Differential (03/19/2025 3:18 PM CDT) Only the most recent of3 resultswithin the time period is included. Hemoglobin 9.6(L) 11.6 - 15.0 g/dL 03/19/2025 [...] C.N.P., M.S.N. LAB BLOOD ADD-ON Final Result [facility] [address] [place] [id number], [facility] CNFL [facility] in [address] [address] * (TTE) 2D ECHO DOPPLER COLOR (03/07/2025 2:17 PM CDT) [facility] Ejection Fraction 63 MC CV EIMS Mid-Ascending Aorta 38 MC CV EIMS LV Mass Index 56 MC CV EIMS LV End-Diastolic Diameter 45 MC CV EIMS LV End-Systolic Diameter 29 MC CV EIMS MV E Velocity 1.1 MC CV EIMS MV A Velocity 0.8 MC CV EIMS MV E/A 1.38 MC CV EIMS MV e' Velocity Medial 0.07 MC CV EIMS MV e' Velocity Lateral 0.06 MC CV EIMS MV E/e' Medial 15.7 MC CV EIMS MV E/e' Lateral 18.3 MC CV EIMS Left ventricular stroke volume index 51 MC CV EIMS Cardiac Output 5.62 MC CV EIMS Cardiac Index 3.04 MC CV EIMS LV Interventricular Septal Wall Thickness 8 MC CV EIMS LV Posterior Wall Thickness 7 MC CV EIMS LV Relative Wall Thickness 31 MC CV EIMS TAPSE 25 MC CV EIMS Tricuspid Annular S 0.12 MC CV EIMS TR Vmax 2.84 MC CV EIMS Estimated RA Pressure (Echo RAP) 10 MC CV EIMS RV Systolic Pressure (with Echo RAP) 42 MC CV EIMS AV mean gradient 4 MC CV EIMS Aortic valve area 2.95 MC CV EIMS Aortic Valve Dimensionless Index 0.85 MC CV EIMS LA Volume Index 25 MC CV EIMS Aortic Valve Systolic Peak Velocity 1.4 MC CV EIMS Anatomical Region Laterality Modality Other 03/07/2025 1:18 PM CDT Impressions 03/07/2025 3:03 PM CDT LEFT VENTRICLE:Normal left ventricular chamber size. Normal left ventricular wall thickness. Calculated 2-D linear left ventricular ejection fraction 63%. No regional wall motion abnormalities. Grade 2/3 left ventricular diastolic dysfunction, consistent with mild-moderately elevated left ventricular filling pressure. RIGHT VENTRICLE:Normal right ventricular chamber size. Normal right ventricular systolic function. Estimated right ventricular systolic pressure 42 mmHg (right atrial pressure of 10 mmHg). ATRIA:Normal left atrial size. Left atrial volume index 25 ml/m2. Normal right atrial size. CARDIAC VALVES:Trileaflet aortic valve. Sclerotic aortic valve. Mild-moderate aortic valve regurgitation. Thickened mitral valve. Mild mitral valve regurgitation. Pulmonary valve not well visualized. Normal pulmonary valve systolic velocities. Normal tricuspid valve. Mild tricuspid valve regurgitation. OTHER ECHO FINDINGS:Enlarged inferior vena cava size with normal inspiratory collapse (>50%). Normal mid ascending aorta diameter of 38 mm. No abdominal aortic aneurysm. Normal abdominal aorta Doppler flow pattern. No atrial level shunt by color flow imaging. No intracardiac mass or thrombus, but the left atrial appendage cannot be visualized adequately with transthoracic echo to exclude thrombus in this location. No pericardial effusion. For the complete report, see the Order-Level Documents. Narrative 03/07/2025 3:03 PM CDT For the complete report, see the Order-Level Documents. Hemodynamics Heart Rate: 57 BPM Blood Pressure: 157 / 59 mmHg ECG: Sinus rhythm Final Impressions 1. Normal left ventricular chamber size, no regional wall motion abnormalities, calculated 2-D linear ejection fraction 63%. 2. Grade 2/3 left ventricular diastolic dysfunction, consistent with mild- moderately elevated left ventricular filling pressure. 3. Normal right ventricular chamber size, normal systolic function, estimated right ventricular systolic pressure 42 mmHg (right atrial pressure of 10 mmHg). 4. Sclerotic aortic valve; trileaflet. Mild-moderate regurgitation. 5. No pericardial effusion. 6. Compared to the report of 06/19/2020 the following changes have occurred: Compared with the resting portion, the diastolic dysfunction has progressed from Grade 1 to Grade 2. The RV systolic pressure has increased from 29 to 42 mm Hg. Side by side comparison of images performed. Procedure Note Grover Bridges M.D., Ph.D. - 03/07/2025 For the complete report, see the Order-Level Documents. Hemodynamics Heart Rate: 57 BPM Blood Pressure: 157 / 59 mmHg ECG: Sinus rhythm Final Impressions 1. Normal left ventricular chamber size, no regional wall motionabnormalities, calculated 2-D linear ejection fraction 63%. 2. Grade 2/3 left ventricular diastolic dysfunction, consistent withmild- moderately elevated left ventricular filling pressure. 3. Normal right ventricular chamber size, normal systolic function,estimated right ventricular systolic pressure 42 mmHg (right atrialpressure of 10 mmHg). 4. Sclerotic aortic valve; trileaflet. Mild-moderate regurgitation. 5. No pericardial effusion. 6. Compared to the report of 06/19/2020 the following changes haveoccurred: Compared with the resting portion, the diastolic dysfunction hasprogressed from Grade 1 to Grade 2. The RV systolic pressure has increasedfrom 29 to 42 mm Hg. Side by side comparison of images performed. Findings LEFT VENTRICLE:Normal left ventricular chamber size. Normal leftventricular wall thickness. Calculated 2-D linear left ventricularejection fraction 63%. No regional wall motion abnormalities. Grade 2/3left ventricular diastolic dysfunction, consistent with mild-moderatelyelevated left ventricular filling pressure. RIGHT VENTRICLE:Normal right ventricular chamber size. Normal rightventricular systolic function. Estimated right ventricular systolicpressure 42 mmHg (right atrial pressure of 10 mmHg). ATRIA:Normal left atrial size. Left atrial volume index 25 ml/m2. Normalright atrial size. CARDIAC VALVES:Trileaflet aortic valve. Sclerotic aortic valve.Mild-moderate aortic valve regurgitation. Thickened mitral valve. Mildmitral valve regurgitation. Pulmonary valve not well visualized. Normalpulmonary valve systolic velocities. Normal tricuspid valve. Mildtricuspid valve regurgitation. OTHER ECHO FINDINGS:Enlarged inferior vena cava size with normalinspiratory collapse (>50%). Normal mid ascending aorta diameter of 38 mm.No abdominal aortic aneurysm. Normal abdominal aorta Doppler flow pattern.No atrial level shunt by color flow imaging. No intracardiac mass orthrombus, but the left atrial appendage cannot be visualized adequatelywith transthoracic echo to exclude thrombus in this location. Nopericardial effusion. For the complete report, see the Order-Level Documents. us Sonia Bertrand APRN, C.N.P., D.N.P. CV ECHO DC OCEDURES Final Result * (ABNORMAL) Troponin T, 5th Generation (03/07/2025 12:11 PM CDT) Only the most recent of2 resultswithin the time period is included. Troponin T, 5th gen 357(H) <=10 ng/L 03/07/2025 12:38 PM CDT [facility] Comment:Consider acute myoca rdial injury Blood (Blood, Venous) 03/07/2025 12:11 PM CDT 03/07/2025 12:19 PM CDT us Maritza Mccullough M.D., M.P.H. LAB BLOOD ADD-ON F inal Result Performing Organization Address City/[facility] [place] [address] * (ABNORMAL) Troponin T, 6h, 5th Gen (03/06/2025 7:55 PM CDT) Pathologist [facility] [place] Troponin T, 6 hr, 5th gen 464(H) <=10 ng/L 03/06/2025 8:46 PM CDT [facility] Comment:Consider acute myoca rdial injury 6H Delta 438(A) ng/L 03/06/2025 8:46 PM CDT [facility] 6H Delta Interp Changing(A ) 03/06/2025 8:46 PM CDT [facility] Comment:Evaluate for acute m yocardial injury Blood 03/06/2025 7:55 PM CDT 03/06/2025 8:03 PM CDT us Juliet Mehta M.D., M.H.A. LAB BLOOD TROPONIN Fi nal Result Performing Organization Address [facility] [place] [place] [address] * ECG 12 Lead (03/06/2025 6:18 PM CDT) Only the most recent of3 resultswithin the time period is included. Ventricular Rate ECG/Min 63 BPM MUSE DC Interval 156 ms MUSE QRSD Interval 78 ms MUSE QT Interval 424 ms MUSE QTC Interval 433 ms MUSE P [place] 20 degrees MUSE R [place] -37 degrees MUSE T Wave [place] 17 degrees MUSE 03/06/2025 6:18 PM CDT 03/07/2025 11:13 AM CDT Impressions MUSE - 03/06/2025 6:28 PM CDT Normal sinus rhythm Normal ECG When compared with ECG of 06-Mar-2025 13:22, Sinus rhythm has replaced Atrial fibrillation Significant changes have occurred Revised Report Narrative Procedure Note Galo Damon M.D., Ph.D. - 03/07/2025 IMPRESSION: Normal sinus rhythm Normal ECG When compared with ECG of 06-Mar-2025 13:22, Sinus rhythm has replaced Atrial fibrillation Significant changes have occurred Revised Report Riley Auguste P.A.-C. ECG ORDERABLES Edited Resu lt - Final MUSE NA * (ABNORMAL) APTT (Activated Partial Thromboplastin Time) (03/06/2025 5:46 PM CDT) Only the most recent of2 resultswithin the time period is included. Activated Partial Thrombopl Time, P 196(CH) 25 - 37 sec 03/06/2025 7:50 PM CDT DTL Blood (Blood, Venous) 03/06/2025 5:46 PM CDT 03/06/2025 6:29 PM CDT Sonia Bertrand APRN, C.N.P., D.N.P. LAB BLOOD ADD-ON Final Result Performing Organization Address City/[facility]/ZIP Co de Phone Number [facility] [address] [place] [address], [facility] [address] [place] [address] * (ABNORMAL) Troponin T, 2 Hour with 6 Hour Reflex, 5th Gen (03/06/2025 3:54 PM CDT) Troponin T, 2 hr, 5th gen 157(H) <=10 ng/L 03/06/2025 5:09 PM CDT [facility] Comment:Consider acute myoca rdial injury 2H Delta 131(A) ng/L 03/06/2025 5:09 PM CDT [facility] Comment:6 hour collection pe nding. 2H Delta Interp Changing(A ) 03/06/2025 5:09 PM CDT [facility] Comment:Evaluate for acute m yocardial injury Blood 03/06/2025 3:54 PM CDT 03/06/2025 4:08 PM CDT Result [facility] Juliet Mehta M.D., M.H.A. LAB BLOOD TROPONIN Fi nal Result [facility] [address] [place] [address], [facility] [address] [place] [address] * Critical Care (03/06/2025 2:41 PM CDT) Narrative Juliet Mehta M.D., M.H.A. - 03/06/2025 2:41 PM CDT Juliet Mehta M.D., M.H.A. 03/06/2025 2:41 PM Critical Care Performed by: Juliet Mehta M.D., M.H.A. Authorized by: Juliet Mehta M.D., M.H.A. Critical care provider statement: Critical care total time (minutes): 35 Critical care time was exclusive of: separately billable procedures and treating other patients and teaching time CPR was performed on this patient: no Critical care was necessary to treat or prevent imminent or life-threatening deterioration of the following conditions: cardiac arrhythmia Critical care was time spent personally by me on the following activities: development of treatment plan with patient or surrogate, discussions with consultants, evaluation of patient's response to treatment, examination of patient, obtaining history from patient or surrogate, ordering and performing treatments and interventions, ordering and review of laboratory studies, ordering and review of radiographic studies, pulse oximetry, re-evaluation of patient's condition, review of old charts, interpretation of cardiac output measurements, discussing treatment issues with family or surrogate, discussions with primary provider and documenting in the patient chart I assumed direction of critical care for this patient from another provider in my specialty: no Juliet Mehta M.D., M.H.A. PROCEDURE/MINOR SURGI JAIMIE ORDERABLES Final Result * DX Chest AP or PA and Lateral 2 Views (03/06/2025 2:04 PM CDT) Anatomical Region Laterality Modality Chest, Thoracic RST LOS, Tho racic ARZ LOS, Thoracic FLA LOS N/A Digital Radiography Impressions 03/06/2025 2:10 PM CDT No significant change since chest CT 05/19/2021. Biapical scarring with nodular opacity at the right apex. Mild pulmonary vascular congestion. Aortic calcification. Degenerative changes thoracic spine. Small hiatal hernia. Partially visualized right percutaneous nephrostomy tube. Remainder negative. Narrative 03/06/2025 2:10 PM CDT EXAM: DX CHEST AP OR PA AND LATERAL 2 VIEWS Procedure Note Alirio Silva M.D. - 03/06/2025 EXAM: DX CHEST AP OR PA AND LATERAL 2 VIEWS IMPRESSION: No significant change since chest CT 05/19/2021. Biapical scarring withnodular opacity at the right apex. Mild pulmonary vascular congestion.Aortic calcification. Degenerative changes thoracic spine. Small hiatalhernia. Partially visualized right percutaneous nephrostomy tube. Remainder negative. Juliet Mehta M.D., M.H.A. IMG DIAGNOSTIC IMAGIN G PROCEDURES Final Result * (ABNORMAL) Troponin T, Baseline with 2 Hour/6 Hour Reflex Biomarker Panel (03/06/2025 1:50 PM CDT) Troponin T, Baseline, 5th gen 26(H) <=10 ng/L 03/06/2025 3:27 PM CDT DTL Blood (Blood, Venous) 03/06/2025 1:50 PM CDT 03/06/2025 1:56 PM CDT Juliet Mehta M.D., M.H.A. LAB BLOOD TROPONIN Fi nal Result [facility] [address] [place] [address], [place] [facility] [address] [place] [address] * IR Nephroureteral Stent Removal Right (03/06/2025 12:13 PM CDT) Anatomical Region Laterality Modality Genito Urinary, Vascular Int erventional RST LOS, Vascular Interventional ARZ LOS, Vascular Interventional FLA LOS Right X-Ray Angiography Impressions 03/06/2025 1:04 PM CDT 1. Right percutaneous antegrade ureteral stent removal followed by placement of a right 10 Salvadorean percutaneous nephrostomy tube. Tube connected to gravity bag drainage. Patient has a Lasix renogram which demonstrated only 27% function in the right kidney. Low urine output from the right percutaneous nephrostomy tube should be expected. 2. 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 3. Patient has hypertension and did not take her Losartan this morning. At the beginning of the procedure with her in the prone position her blood pressure was approximately 216 mmHg systolic. She was given a total of 20 mg of IV hydralazine in four separate 5 mg doses which brought her systolic blood pressures down into the 140s. The procedure was then completed in an uncomplicated fashion. Following the procedure the patient developed atrial fibrillation with RVR with rates in the 180s. This was confirmed with a 12-lead EKG which also showed some possible T wave elevations. She was given 5 mg IV diltiazem which did not significantly improve her rhythm. During this time the patient also reported chest and jaw pressure. Case was discussed with ATC and the patient will need to be transferred to the emergency department for further evaluation. Hand off was given to the [facility] Coordinator team. Please see COOPER Hays's note for further details. NR Narrative 03/06/2025 1:04 PM CDT EXAM: IR NEPHROSTOMY TUBE PLACEMENT RIGHT, IR NEPHROURETERAL STENT REMOVAL RIGHT CLINICAL HISTORY: Patient is an 84-year-old female who presents with history of right ureteral obstruction with right ureteral stent in place. She has been evaluated by urology who recommends right antegrade ureteral stent removal and right percutaneous nephrostomy tube placement to allow for future evaluation of the right ureter and possible repair. TECHNIQUE: Patient placed prone on the procedure table. Right flank prepped and draped in sterile fashion. 1% buffered lidocaine used for local anesthesia. Ultrasound of the right kidney demonstrates an atrophic right kidney with moderate hydronephrosis. Under ultrasound guidance, a posterior right calyx was accessed. A 0.018 inch wire was advanced into the renal pelvis and the tract converted with a Merit system. Contrast injection confirms satisfactory position in the right renal pelvis. The right renal pelvis is chronically dilated with right double-J ureteral stent in place. Contrast flows down the patent right ureteral stent into the urinary bladder. A 0.035 inch guidewire was then looped in the right renal pelvis and a 5 Salvadorean vascular sheath placed. A pullback tract injection was performed which demonstrated a satisfactory calyceal access and percutaneous tract for antegrade ureteral stent removal and percutaneous nephrostomy tube placement. An 8 Salvadorean sheath was placed in the right renal pelvis. A 25 mm gooseneck loop snare was used to capture the proximal loop of the right ureteral stent. Ureteral stent was then removed intact and in its entirety without complication. Over the wire a 10 Salvadorean x 25 cm locking loop multipurpose pigtail catheter was placed. Pigtail was formed and locked in the right renal pelvis and final satisfactory nephrostomy tube position and function confirmed with a completion nephrostogram. The tube was secured to the skin with a nonabsorbable stitch and connected to gravity bag drainage. Dressing applied. No complication. PREPROCEDURE: Patient seen, evaluated, history reviewed, and approved for sedation. Airway, heart, and lung exam satisfactory for sedation. Discussed risks, benefits, alternatives for procedure, and/or sedation. The roles and responsibilities of care team members, residents, and fellows were discussed. Patient understands information and questions answered. Informed consent obtained from the patient. Immediately prior to starting the procedure, in the presence of the assisting personnel, a procedural pause was conducted to verify correct patient identity and verification of procedure to be performed, and as applicable, correct side and site, correct patient position, availability of implants, special equipment, or special requirements, and all image and specimen identification data. INTRAPROCEDURE: Moderate sedation was administered by sedation nurse under my supervision. The patient was continuously monitored with real time oxygen saturation, heart rate, ECG rhythm strip and blood pressure throughout administration of the sedation and performance of the procedure. The total intra-procedural sedation time was: 28 minutes. Estimated blood loss: minimal. Procedure Note Fawad Whitlock M.D. - 03/06/2025 EXAM: IR NEPHROSTOMY TUBE PLACEMENT RIGHT, IR NEPHROURETERAL STENT REMOVALRIGHT CLINICAL HISTORY: Patient is an 84-year-old female who presents withhistory of right ureteral obstruction with right ureteral stent in place.She has been evaluated by urology who recommends right antegrade ureteralstent removal and right percutaneous nephrostomy tube placement to allow for future evaluation of the rightureter and possible repair. TECHNIQUE: Patient placed prone on the procedure table. Right flankprepped and draped in sterile fashion. 1% buffered lidocaine used forlocal anesthesia. Ultrasound of the right kidney demonstrates an atrophicright kidney with moderate hydronephrosis. Under ultrasound guidance, a posterior right calyx was accessed. A 0.018inch wire was advanced into the renal pelvis and the tract converted witha Conspire system. Contrast injection confirms satisfactory position in theright renal pelvis. The right renal pelvis is chronically dilated with right double-J ureteral stent inplace. Contrast flows down the patent right ureteral stent into theurinary bladder. A 0.035 inch guidewire was then looped in the right renalpelvis and a 5 Salvadorean vascular sheath placed. A pullback tract injection was performed which demonstrated asatisfactory calyceal access and percutaneous tract for antegrade ureteralstent removal and percutaneous nephrostomy tube placement. An 8 Frenchsheath was placed in the right renal pelvis. A 25 mm gooseneck loop snare was used to capture the proximal loopof the right ureteral stent. Ureteral stent was then removed intact and inits entirety without complication. Over the wire a 10 Salvadorean x 25 cmlocking loop multipurpose pigtail catheter was placed. Pigtail was formed and locked in the right renalpelvis and final satisfactory nephrostomy tube position and functionconfirmed with a completion nephrostogram. The tube was secured to theskin with a nonabsorbable stitch and connected to gravity bag drainage. Dressing applied. No complication. PREPROCEDURE: Patient seen, evaluated, history reviewed, and approved forsedation. Airway, heart, and lung exam satisfactory for sedation.Discussed risks, benefits, alternatives for procedure, and/or sedation.The roles and responsibilities of care team members, residents, and fellows were discussed. Patient understandsinformation and questions answered. Informed consent obtained from thepatient. Immediately prior to starting the procedure, in the presence ofthe assisting personnel, a procedural pause was conducted to verify correct patient identity and verificationof procedure to be performed, and as applicable, correct side and site,correct patient position, availability of implants, special equipment, orspecial requirements, and all image and specimen identification data. INTRAPROCEDURE: Moderate sedation was administered by sedation nurse undermy supervision. The patient was continuously monitored with real timeoxygen saturation, heart rate, ECG rhythm strip and blood pressurethroughout administration of the sedation and performance of the procedure. The total intra-procedural sedation timewas: 28 minutes. Estimated blood loss: minimal. IMPRESSION: 1. Right percutaneous antegrade ureteral stent removal followed byplacement of a right 10 Salvadorean percutaneous nephrostomy tube. Tubeconnected to gravity bag drainage. Patient has a Lasix renogram whichdemonstrated only 27% function in the right kidney. Low urine output from the right percutaneous nephrostomy tubeshould be expected. 2. 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 3. Patient has hypertension and did not take her Losartan this morning. Atthe beginning of the procedure with her in the prone position her bloodpressure was approximately 216 mmHg systolic. She was given a total of 20mg of IV hydralazine in four separate 5 mg doses which brought her systolic blood pressures down intothe 140s. The procedure was then completed in an uncomplicated fashion.Following the procedure the patient developed atrial fibrillation with RVRwith rates in the 180s. This was confirmed with a 12-lead EKG which also showed some possible T waveelevations. She was given 5 mg IV diltiazem which did not significantlyimprove her rhythm. During this time the patient also reported chest andjaw pressure. Case was discussed with ATC and the patient will need to be transferred to the emergency departmentfor further evaluation. [facility] Please see COOPER Hays's note for further details. NR us Yadira Drummond P.A.-C. IMG IR PROCEDURES Final Result * IR Nephrostomy Tube Placement Right (03/06/2025 12:13 PM CDT) Anatomical Region Laterality Modality Genito Urinary, Vascular Int erventional RST LOS, Vascular Interventional ARZ LOS, Vascular Interventional FLA LOS Right X-Ray Angiography Impressions 03/06/2025 1:04 PM CDT 1. Right percutaneous antegrade ureteral stent removal followed by placement of a right 10 Salvadorean percutaneous nephrostomy tube. Tube connected to gravity bag drainage. Patient has a Lasix renogram which demonstrated only 27% function in the right kidney. Low urine output from the right percutaneous nephrostomy tube should be expected. 2. 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 3. Patient has hypertension and did not take her Losartan this morning. At the beginning of the procedure with her in the prone position her blood pressure was approximately 216 mmHg systolic. She was given a total of 20 mg of IV hydralazine in four separate 5 mg doses which brought her systolic blood pressures down into the 140s. The procedure was then completed in an uncomplicated fashion. Following the procedure the patient developed atrial fibrillation with RVR with rates in the 180s. This was confirmed with a 12-lead EKG which also showed some possible T wave elevations. She was given 5 mg IV diltiazem which did not significantly improve her rhythm. During this time the patient also reported chest and jaw pressure. Case was discussed with ATC and the patient will need to be transferred to the emergency department for further evaluation. Hand off was given to the [facility] team. Please see COOPER Hays's note for further details. NR Narrative 03/06/2025 1:04 PM CDT EXAM: IR NEPHROSTOMY TUBE PLACEMENT RIGHT, IR NEPHROURETERAL STENT REMOVAL RIGHT CLINICAL HISTORY: Patient is an 84-year-old female who presents with history of right ureteral obstruction with right ureteral stent in place. She has been evaluated by urology who recommends right antegrade ureteral stent removal and right percutaneous nephrostomy tube placement to allow for future evaluation of the right ureter and possible repair. TECHNIQUE: Patient placed prone on the procedure table. Right flank prepped and draped in sterile fashion. 1% buffered lidocaine used for local anesthesia. Ultrasound of the right kidney demonstrates an atrophic right kidney with moderate hydronephrosis. Under ultrasound guidance, a posterior right calyx was accessed. A 0.018 inch wire was advanced into the renal pelvis and the tract converted with a Merit system. Contrast injection confirms satisfactory position in the right renal pelvis. The right renal pelvis is chronically dilated with right double-J ureteral stent in place. Contrast flows down the patent right ureteral stent into the urinary bladder. A 0.035 inch guidewire was then looped in the right renal pelvis and a 5 Salvadorean vascular sheath placed. A pullback tract injection was performed which demonstrated a satisfactory calyceal access and percutaneous tract for antegrade ureteral stent removal and percutaneous nephrostomy tube placement. An 8 Salvadorean sheath was placed in the right renal pelvis. A 25 mm gooseneck loop snare was used to capture the proximal loop of the right ureteral stent. Ureteral stent was then removed intact and in its entirety without complication. Over the wire a 10 Salvadorean x 25 cm locking loop multipurpose pigtail catheter was placed. Pigtail was formed and locked in the right renal pelvis and final satisfactory nephrostomy tube position and function confirmed with a completion nephrostogram. The tube was secured to the skin with a nonabsorbable stitch and connected to gravity bag drainage. Dressing applied. No complication. PREPROCEDURE: Patient seen, evaluated, history reviewed, and approved for sedation. Airway, heart, and lung exam satisfactory for sedation. Discussed risks, benefits, alternatives for procedure, and/or sedation. The roles and responsibilities of care team members, residents, and fellows were discussed. Patient understands information and questions answered. Informed consent obtained from the patient. Immediately prior to starting the procedure, in the presence of the assisting personnel, a procedural pause was conducted to verify correct patient identity and verification of procedure to be performed, and as applicable, correct side and site, correct patient position, availability of implants, special equipment, or special requirements, and all image and specimen identification data. INTRAPROCEDURE: Moderate sedation was administered by sedation nurse under my supervision. The patient was continuously monitored with real time oxygen saturation, heart rate, ECG rhythm strip and blood pressure throughout administration of the sedation and performance of the procedure. The total intra-procedural sedation time was: 28 minutes. Estimated blood loss: minimal. Procedure Note Fawad Whitlock M.D. - 03/06/2025 EXAM: IR NEPHROSTOMY TUBE PLACEMENT RIGHT, IR NEPHROURETERAL STENT REMOVALRIGHT CLINICAL HISTORY: Patient is an 84-year-old female who presents withhistory of right ureteral obstruction with right ureteral stent in place.She has been evaluated by urology who recommends right antegrade ureteralstent removal and right percutaneous nephrostomy tube placement to allow for future evaluation of the rightureter and possible repair. TECHNIQUE: Patient placed prone on the procedure table. Right flankprepped and draped in sterile fashion. 1% buffered lidocaine used forlocal anesthesia. Ultrasound of the right kidney demonstrates an atrophicright kidney with moderate hydronephrosis. Under ultrasound guidance, a posterior right calyx was accessed. A 0.018inch wire was advanced into the renal pelvis and the tract converted witha Conspire system. Contrast injection confirms satisfactory position in theright renal pelvis. The right renal pelvis is chronically dilated with right double-J ureteral stent inplace. Contrast flows down the patent right ureteral stent into theurinary bladder. A 0.035 inch guidewire was then looped in the right renalpelvis and a 5 Salvadorean vascular sheath placed. A pullback tract injection was performed which demonstrated asatisfactory calyceal access and percutaneous tract for antegrade ureteralstent removal and percutaneous nephrostomy tube placement. An 8 Frenchsheath was placed in the right renal pelvis. A 25 mm gooseneck loop snare was used to capture the proximal loopof the right ureteral stent. Ureteral stent was then removed intact and inits entirety without complication. Over the wire a 10 Salvadorean x 25 cmlocking loop multipurpose pigtail catheter was placed. Pigtail was formed and locked in the right renalpelvis and final satisfactory nephrostomy tube position and functionconfirmed with a completion nephrostogram. The tube was secured to theskin with a nonabsorbable stitch and connected to gravity bag drainage. Dressing applied. No complication. PREPROCEDURE: Patient seen, evaluated, history reviewed, and approved forsedation. Airway, heart, and lung exam satisfactory for sedation.Discussed risks, benefits, alternatives for procedure, and/or sedation.The roles and responsibilities of care team members, residents, and fellows were discussed. Patient understandsinformation and questions answered. Informed consent obtained from thepatient. Immediately prior to starting the procedure, in the presence ofthe assisting personnel, a procedural pause was conducted to verify correct patient identity and verificationof procedure to be performed, and as applicable, correct side and site,correct patient position, availability of implants, special equipment, orspecial requirements, and all image and specimen identification data. INTRAPROCEDURE: Moderate sedation was administered by sedation nurse undermy supervision. The patient was continuously monitored with real timeoxygen saturation, heart rate, ECG rhythm strip and blood pressurethroughout administration of the sedation and performance of the procedure. The total intra-procedural sedation timewas: 28 minutes. Estimated blood loss: minimal. IMPRESSION: 1. Right percutaneous antegrade ureteral stent removal followed byplacement of a right 10 Salvadorean percutaneous nephrostomy tube. Tubeconnected to gravity bag drainage. Patient has a Lasix renogram whichdemonstrated only 27% function in the right kidney. Low urine output from the right percutaneous nephrostomy tubeshould be expected. 2. 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 3. Patient has hypertension and did not take her Losartan this morning. Atthe beginning of the procedure with her in the prone position her bloodpressure was approximately 216 mmHg systolic. She was given a total of 20mg of IV hydralazine in four separate 5 mg doses which brought her systolic blood pressures down intothe 140s. The procedure was then completed in an uncomplicated fashion.Following the procedure the patient developed atrial fibrillation with RVRwith rates in the 180s. This was confirmed with a 12-lead EKG which also showed some possible T waveelevations. She was given 5 mg IV diltiazem which did not significantlyimprove her rhythm. During this time the patient also reported chest andjaw pressure. Case was discussed with ATC and the patient will need to be transferred to the emergency departmentfor further evaluation. [facility] Please see COOPER Hays's note for further details. NR us Yadira Drummond P.A.-C. IMG IR PROCEDURES Final Result * NM Kidney with Lasix (02/20/2025 3:58 PM CDT) Anatomical Region Laterality Modality Renal, Nuclear Medicine RST LOS, Nuclear Medicine ARZ LOS, Nuclear Medicine FLA LOS, Nuclear Medicine N/A Nuclea r Medicine Impressions 02/20/2025 4:18 PM CDT Decreased function of the right kidney. No evidence of obstruction. Narrative 02/20/2025 4:18 PM CDT EXAM: NM KIDNEY WITH LASIX RADIOPHARMACEUTICAL/MEDS: Route: intravenous technetium Tc 99m mertiatide (Tc-99m MAG3),10.43 millicurie Route: intravenous furosemide injection 1.5-40 mg (Lasix) , 38.35 mg TECHNIQUE: Planar dynamic vascular flow and function images of the kidneys beginning immediately following IV radiotracer injection. Additional posterior planar images of the kidneys obtained with pharmacologic intervention using intravenous Lasix. COMPARISON: Ultrasound from 05/28/2020. PET/CT from 06/17/2020. INDICATION: Right Hydronephrosis. Evaluate for obstruction. FINDINGS: Small right kidney with decreased function. Relative kidney function is 73% in the left kidney and 27% in the right kidney. There is retention of the tracer in the collecting system of the right kidney with however good response to Lasix. No evidence of obstruction. Normal urinary outflow in the left kidney. Procedure Note Christianne Cardona M.D. - 02/20/2025 EXAM: NM KIDNEY WITH LASIX RADIOPHARMACEUTICAL/MEDS: Route: intravenous technetium Tc 99m mertiatide (Tc-99m MAG3),10.43 millicurie Route: intravenous furosemide injection 1.5-40 mg (Lasix) , 38.35 mg TECHNIQUE: Planar dynamic vascular flow and function images of the kidneysbeginning immediately following IV radiotracer injection. Additionalposterior planar images of the kidneys obtained with pharmacologicintervention using intravenous Lasix. COMPARISON: Ultrasound from 05/28/2020. PET/CT from 06/17/2020. INDICATION: Right Hydronephrosis. Evaluate for obstruction. FINDINGS: Small right kidney with decreased function. Relative kidney function is 73% in the left kidney and 27% in the rightkidney. There is retention of the tracer in the collecting system of the rightkidney with however good response to Lasix. No evidence of obstruction. Normal urinary outflow in the left kidney. IMPRESSION: Decreased function of the right kidney. No evidence of obstruction. us Yadira Drummond P.A.-C. IMG NM PROCEDURES Final Result * (ABNORMAL) Microscopic Automated (02/20/2025 1:01 PM CDT) Microscopy Abnormal 02/20/2025 2:03 PM CDT DTL RBC 3-10(A) <3 /hpf 02/20/2025 2:03 PM CDT DTL Dysmorphic RBC <25 <25 % 02/20/2025 2:03 PM CDT DTL WBC 1-3 /hpf 02/20/2025 2:03 PM CDT DTL Comment: ----REFERENCE VALUE---- <4 (Males) <11 (Females) Urine 02/20/2025 1:01 PM CDT 02/20/2025 1:36 PM CDT Soft Results Interface LAB URINE ORDERABLES Arcelia l Result Performing Organization Address [facility]/ZIP Co de Phone Number [facility] [address] [facility] [address] [place] [address] * Thyroid Function Ste[place]s (05/28/2020 3:44 PM CDT) TSH, Sensitive 1.8 0.3 - 4.2 mIU/L 05/28/2020 4:57 PM CDT DTL Blood (Blood, Venous) 05/28/2020 3:44 PM CDT 05/28/2020 4:32 PM CDT Viky Decker M.D. 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
--- OUTSIDE RECORDS SUMMARY | 2025-04-29 03:29 | XMS_ITS | Clinical Summary ---
Author Organization [facility] Address [address] [place] [id number] Care Team Providers Care Leadite Worker Name Role Phone Kalia Meka HOPKINS Primary Care Provider Zachariah Porter MD Unavailable [phone] Allergies Active Allergy Reactions Criticality Noted Date Comments Abdon Inhibitors Cough 10/22/2006 Amlodipine Edema 02/06/2025 Cat Dander Wheezing 01/31/2015 Apixaban Diarrhea 07/09/2022 House Dust *Unknown 01/31/2015 Hyoscyamine Rash 10/22/2006 Metoprolol Bradycardia,Edema,GI Upset 03/01/2009 Reflux, leg swelling Medications cholecalciferol, Vitamin D3, 5,000 unit tab tablet Take by mouth once daily. 0 01/26/20 15 Active nebulizer accessories misc miscIndications:Whe ezing As directed. replace mask and tubing every 6 months. 1 Each 1 03/19/20 23 Active magnesium glycinate 100 mg magnesium capIndications:Flor roesophageal reflux disease, unspecified whether esophagitis present Take 100 mg by mouth once daily. 0 04/19/20 23 Active albuterol 2.5 mg/0.5 mL CONCENTRATED NEB solution Inhale 2.5 mg via a nebulizer one time if needed for Shortness Of Breath. 01/15/20 23 Active NebulizerIndication s:Wheezing Nebulizer, disposable neb kit x 4, reuseable neb kit x 1, mask x 1, filters x 1. Frequency of use: daily; Medication: albuterol Length of need: 99 months 1 Each 07/28/20 23 Active albuterol 0.083% (2.5 mg/3 mL) neb solutionIndications :Post-viral cough syndrome Inhale 3 mL (2.5 mg) via a nebulizer every 4 hours if needed for Cough. 540 mL 05/15/20 24 Active Synthroid 88 mcg tabletIndications:H ypothyroidism due to acquired atrophy of thyroid Take 1 Tablet (88 mcg) by mouth before breakfast. 100 Tablet 3 02/02/20 25 Active oxyCODONE 5 mg immediate release tabletIndications:C hronic left hip pain Take 1 Tablet (5 mg) by mouth every 4 hours if needed for Pain. 20 Tablet 03/02/20 25 Active losartan 50 mg tablet Take 50 mg by mouth once daily. Active apixaban 2.5 mg tabletIndications:p revent thromboembolism in chronic atrial fibrillation Take 1 Tablet (2.5 mg) by mouth two times daily. 60 Tablet 11 03/26/20 25 Active metoprolol tartrate 25 mg tabletIndications:P aroxysmal A-fib (HC) Take 0.5 Tablets (12.5 mg) by mouth two times daily. 90 Tablet 1 04/02/20 25 Active metoprolol tartrate 25 mg tablet Take 0.5 Tablets (12.5 mg) by mouth two times daily. 03/13/20 25 025 Discontinu ed(Reorder (E-cancel not sent)) cephalexin 250 mg capsuleIndications: Complicated UTI (urinary tract infection) Take 1 Capsule (250 mg) by mouth every 12 hours for 10 days. 20 Capsule 04/13/20 25 025 Active Problems Problem Noted Date Diagnosed Date Diastolic congestive heart f ailure, unspecified HF chronicity 03/09/2024 Chronic obstructive pulmonar y disease, unspecified COPD type 03/09/2024 Atherosclerosis of aorta 03/09/2024 Renal insufficiency 02/17/2024 CHI (closed head injury) 02/16/2024 Elevated blood pressure reading 02/16/2024 Mass of right lung 02/16/2024 Hypertension 02/16/2024 Asthma 02/16/2024 TIA (transient ischemic attack) 02/16/2024 Anemia 12/24/2023 Hydronephrosis with ureteral stricture, not elsewhere classified 12/24/2023 UPJ stricture, acquired 12/24/2023 Hypertensive kidney disease, stage V 01/05/2022 Aortic valve regurgitation 12/08/2021 Mitral valve regurgitation 12/08/2021 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 History of falling 06/17/2020 Lung granuloma 03/01/2019 Overview (07/05/2020): CT stable [address] [place] continues to confirm no change 2019 Arthritis of left foot 05/24/2018 Adjustment disorder with mixed anxiety and depre ssed mood 06/30/2015 Other chronic nonalcoholic liver disease 008 Encounter for long-term (current) use of other m edications 01/27/2008 Insomnia, unspecified 01/26/2008 Hypothyroidism Diaphragmatic hernia without mention of obstruction or gangrene Esophageal reflux Hyperlipidemia Edema Overview (03/10/2008): echo w/ EF 60% 01/31 Vitamin D deficiency Resolved Problems Problem Noted Date Diagnosed Date Resolved Date Anticoagulation monitoring, INR range 2-3 07/13/2022 09/22/2022 Overview (07/13/2022): 07/13/22 Transition from Eliquis to Warfarin Chest pain, unspecified 06/01/200709/2007 Overview (09/02/2007): angiogram: trivial coronary artery disease Unspecified sleep apnea 05/2008 Overview (09/02/2007): uses CPAP Unspecified essential hypertension 05/23/2012 Encounters Date Type Department Care Team Description 04/16/2025 Telephone [facility] [address] [place] [address] Ricky Canada MD Appointment Request (appointment request) 04/16/2025 Telephone [facility] [address] [place] [address] Zandra Brink PA Results 04/13/2025 Telephone [facility] [address] [place] [address] Zandra Brink PA Results 04/12/2025 12:50 PM CDT Office Visit [facility] [address] [place] [address] Zandra Brink PA UTI 04/12/2025 Travel 03/28/2025 Telephone [facility] [address] [place] [address] Meka Motta DO Form ([place] dept of public safety) 03/26/2025 1:10 PM CDT Office Visit [address] [address] Devora Tirado PA CV General Cardiology Est ([facility] FU - WAS IN THE ER THERE FOR OTHER ISSUES - WOULD LIKE TO HAVE A CONVERSATION ABOUT UPCOMING URETER SURGERY IN APR. HAD AFIB AFTER LAST PROCEDURE WHICH WAS SIMILAR, PER DAUGHTERRADHA./Meka Motta DO) 03/26/2025 Travel 03/21/2025 3:15 PM CDT Orders Only [facility] [address] [place] [address] Lab, [facility] 03/20/2025 Travel 03/19/2025 Telephone [facility] [address] [place] [address] Meka Motta DO Questions (Lab appointment) 03/14/2025 2:00 PM CDT Ancillary Procedure [facility] [address] [place] [address] 03/14/2025 9:20 AM CDT Office Visit [facility] [address] [place] [address] James Gonzales, Hospital F/U (tube taken out and bag put on ) 03/13/2025 Travel 03/13/[address] [address] Jose Eduardo Ybarra MD Atrial Fibrillation 03/08/2025 Telephone [facility] [address] [place] [address] Meka Motta DO Hospital F/U 03/03/2025 12:15 PM CDT Ancillary Procedure [address] [address] 03/03/2025 12:10 PM CDT Office Visit [facility] [address] [place] [phone] Raven Chapman NP Hip Pain/problem (Left/) 03/02/2025 10:35 AM CDT Office Visit [facility] [address] [place] [address] Meka Motta DO Medication Management; Hip Pain/problem (Hip pain - LEFT side - has had problems in the hip in the past - did see an ortho in the past and they told her likely she could not have it replaced - about 4 months ago ) 03/02/2025 Travel 02/21/2025 Telephone [facility] [address] [place] [address] Meka Motta DO Referral (NEPHROLOGY APPOINTMENT) 02/16/2025 2:00 PM CDT Office Visit [facility] at [facility] [address] [place] [address] Ricky Canada MD Procedure (Bilateral L5-S1 TFESI) 02/16/2025 Travel 02/15/2025 Travel 02/12/2025 Telephone [facility] [address] [place] [address] Ricky Canada MD Injection (Medication) (Order - Back Pain) 02/07/2025 Telephone [facility] [address] [place] [address] Meka Motta DO Referral 02/06/2025 Telephone [facility] [address] [place] [address] Meka Motta DO Medication Reaction 02/01/2025 12:25 PM CDT Office Visit [facility] [address] [place] [address] Meka Motta DO Follow Up (Stent surgery) 02/01/2025 Travel from Last 3 Months Immunizations Immunization Administration Dates Next Due Influenza Virus, Unspecified 09/15/2016, 06/24/2015,07/17/2014,2012 Influenza, High-dose Inactivated 09/15/2016,05/29,07/17/2014 Influenza, IIV3 (Age >=3 years) 07/25/2013,08/13 Pneumococcal Poly,23-Valent (Pneumovax) 09/15/2005 Pneumococcal conj 13-Valent (Prevnar 13) 04/20/2017 Td (Age >=7 Years) 01/26/2008,02/26/1988 Td, Preservative Free (age > = 7 Years) 01/26/2008 Zoster (Zostavax-ZVL, live) 01/26/2008 Family History Medical History Relation Name Comments Cancer Brother 1 Real Bladder Cancer-colon Brother 1 Real Parkinsonism Brother 1 Real Heart Disease Brother 2 Malachi Heart attack Brother 2 Malachi Drug Abuse Daughter 1 Aleyda Thyroid Disease Daughter 1 Aleyda Thyroid Disease Daughter 2 Dacia Heart Disease Father No Known Problems Grandchild Ally Cancer Mother stomach, age 87 Stroke Paternal Aunt Cancer-prostate Paternal Grandfather Urinary tract infection Son 1 Benjamin Lots of urinary issues Vitiligo Son 1 Benjamin Stroke Son 2 Ryan Relation Name Status Comments Brother 1 Real Brother 2 Malachi Alive Daughter 1 Aleyda Alive Daughter 2 Dacia Alive Father Grandchild Ally Alive Maternal Grandfather Maternal Grandmother Mother Paternal Aunt Paternal Grandfather Paternal Grandmother Son 1 Benjamin Alive Son 2 Ryan Alive Social History Tobacco Use Types Packs/Day Years Used Date Smoking Tobacco: Never Smokeless Tobacco: Never Tobacco Cessation:Counseling Given: Not Answered Alcohol Use Standard Drinks/Week Comments Not Currently 0 (1 standard drink = 0.6 oz pur e alcohol) rare PHQ-2 Answer Date Recorded PHQ-2 TOTAL SCORE 0 07/25/2024 Social Connections Answer Date Recorded Do you often feel lonely or isolated from those around you? 0 02/01/2025 Financial Resource Strain Answer Date R ecorded Difficulty of Paying Living Expenses 3 02/01/2025 Difficulty of Paying Living Expenses Not on file 02/01/2025 Food Insecurity Answer Date Recorded Do you worry your food will run out before you are able to buy more? 1 02/01/2025 Transportation Needs Answer Date Record ed Does lack of transportation keep you from medica l appointments? 1 02/01/2025 Does lack of transportation keep you from work, meetings or getting things that you need? 1 02/01/2025 Housing Stability Answer Date Recorded What is your housing situation today? 1 02/01/2025 Utilities Answer Date Recorded Do you have trouble paying f or utilities (for example, heat, electricity, water, phone)? 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 Gender Identity Not on file Sexual Orientation Not on file Occupation Industry Job Start Date Job End Date Retired Not on file Not on file Not on file Obstetrics History Para Term AB IAB SAB Ectopic Multiple Livin g Live Births 4 4 3 1 4 2 Date Outcome GA Total Labor Labor/2nd/3rd Weight Sex Type Anes PTL Christina A1 A5 Name Clin 1961 Term F Vag Living Aleyda 1963 Term M Vag Ryan 1967 Term F Vag Daica 1968 36w 0d M Vag Living Benjamin Comments FOUR LIVE BIRTHS AND ONE ADO PTION Last Filed Vital Signs Vital Sign Reading Time Taken Comments Blood Pressure 169/73 04/12/2025 1:03 PM CDT Pulse 63 04/12/2025 1:03 PM CDT Temperature 36.6 C (97.9 F) 04/12/2025 1:03 PM CDT Respiratory Rate 16 03/03/2025 12:17 PM CDT Oxygen Saturation 99% 04/12/2025 1:03 PM CDT Inhaled Oxygen Concentration - - Weight 77.7 kg (171 lb 3.2 oz) 03/26/2025 1:00 P M CDT Height 162 cm (5' 3.78) 03/26/2025 1:00 PM CDT Body Mass Index 29.59 03/26/2025 1:00 PM CDT Plan of Treatment Upcoming Encounters Date Type Department Care Team (Late st Contact Info) Description 05/02/2025 3:20 PM CDT Office Visit [facility] [address] [place] [address] Meka Motta DO [address] [place] [address] 06/20/2025 10:40 AM CDT Office Visit [facility] [address] [place] [address] Ricky Canada MD [address] [place] [address] 06/25/2025 11:20 AM CDT Office Visit [facility] [address] [address] Devora Tirado PA [address] [place] [address] Health Maintenance Due Date Last Done Comments Zoster (shingles) series for age 50+ (2 of 3) 03/22/2008 01/26/2008 RSV vaccine for adults or (1 - 1-dose 75+ series) 2015 Tetanus booster 01/25/2018 01/26/2008, 0509/2007, 02/26/1988 COVID-19 vaccine series (2023- season) 2024 Influenza Vaccine (#1) 2025 6, 09/15/2016, 06/24/2015, Additional history exists Depression screening for age 12+ 07/25/2025 07/25/2024, 07/25/2024, 01/05/2022, Additional history exists Medicare Wellness for age 65+ 07/26/2025 07/25/2024, 01/05/2022 BMI (ht and wt on same day) for age 18+ 03/26/2026 03/26/2025, 07/25/2024, 04/27/2024, Additional history exists DEXA/DXA scan for age 65+ Completed 04/29/2009 Pneumococcal series for age 50+ Completed 04/20/2017, 09/15/2005 Hepatitis B series for 19+ Aged Out N o longer eligible based on patient's age to complete this topic Procedures Procedure Name Priority Date/Time Associated Diagnosis Comments URINALYSIS MACROSCOPIC - [facility] ONLY POC DIP ([facility]) Routine 04/12/2025 1:05 PM CDT Lower urinary tract symptoms (LUTS) URINE CULTURE Routine 04/12/2025 1:04 PM CDT Lower urinary tract symptoms (LUTS) URINALYSIS MICROSCOPIC Routine 04/12/2025 1:04 PM CDT Lower urinary tract symptoms (LUTS) BASIC METABOLIC PANEL Routine 03/21/2025 3:14 PM CDT Hydronephrosis with ureteral stricture, not elsewhere classified ECHO TTE COMPLETE WO CONTRAST Routine 03/14/2025 3:04 PM CDT Chest pressure Resistant hypertension XR HIP 1 VIEW W PELVIS LEFT STAT 03/03/2025 12:33 PM CDT Hip pain, left AMB EPIDURAL STEROID INJECTION Routine 02/16/2025 12:00 AM CDT Lumbosacral radiculopathy at L5 Degeneration of intervertebral disc of lumbar region with discogenic back pain and lower extremity pain BASIC METABOLIC PANEL Routine 02/01/2025 1:26 PM CDT Hypertensive kidney disease, stage V (HC) Hypertension XR DXA BONE DENSITY 2 SITES AXIAL Routine 04/29/2009 Osteoporosis Screening from Last 3 Months or Most Recently Relevant to Health Maintenance Results * (ABNORMAL) POCT Urinalysis Dipstick Only [[id number]] (04/12/2025 1:05 PM CDT) Pathologist [facility] PH 6.0 5.0 - 8.0 [facility] SPECIFIC GRAVITY 1.015 1.001 - 1.035 [facility] GLUCOSE NEGATIVE NEGATIVE [facility] BILIRUBIN NEGATIVE NEGATIVE [facility] KETONES NEGATIVE NEGATIVE [facility] OCCULT BLOOD TRACE(A) NEGATIVE [facility] PROTEIN TRACE(A) NEGATIVE [facility] NITRITE NEGATIVE NEGATIVE [facility] LEUKOCYTE ESTERASE 2+(A) NEGATIVE [facility] Urine URINE SPECIMEN / Unknown 04/12/2025 1:05 PM CDT 04/12/2025 1:06 PM CDT Zandra MONTALVO URINE Final Result [facility] [address] [place] [address], [facility] [address] [place] [address] * (ABNORMAL) URINALYSIS MICROSCOPIC [00936.1] - routine (04/12/2025 1:04 PM CDT) Pathologist [facility] RBC 0-2 0-2, None Seen /HPF 04/13/2025 12:32 AM CDT [facility] WBC >100(A) 0-2, 3-5, None Seen /HPF 04/13/2025 12:32 AM CDT [facility] BACTERIA Moderate(A ) None Seen, Rare, Few Bacteria/ HPF 04/13/2025 12:32 AM CDT [facility] EPITHELIAL CELLS None Seen None Seen, Few Epi/HPF 04/13/2025 12:32 AM CDT [facility] HYALINE CASTS 0-2 0-2, 3-5 /LPF 04/13/2025 12:32 AM CDT [facility] Urine URINE SPECIMEN / Unknown Non-Blood / Unknown 04/12/2025 1:04 PM CDT 04/12/2025 1:04 PM CDT Zandra MONTALVO URINE Final Result [facility] [address] [place] [address], [place] * (ABNORMAL) URINE CULTURE [21288.2] (04/12/2025 1:04 PM CDT) CULTURE RESULT(A) 04/15/2025 6:54 AM CDT [facility] CULTURE 50,000-100,000 CFU/mL Klebsiella pneumoniae 04/15/2025 6:54 AM CDT [facility] CULTURE <10,000 CFU/mL Multiple organisms probable contaminants 04/15/2025 6:54 AM CDT [facility] Urine URINE SPECIMEN / Unknown Non-Blood / Unknown 04/12/2025 1:04 PM CDT 04/12/2025 1:04 PM CDT Narrative Organism Antibiotic Method Susceptibility Klebsiella pneumoniae TRIMETHOPRIM/SULF <=10/15: S Klebsiella pneumoniae AMPICILLIN >=32: R Klebsiella pneumoniae CEFAZOLIN 2: S Klebsiella pneumoniae CEFAZOLIN-UC 2: S Comment:Cefazolin-UC interpretations are for therapy of uncomplicated UTIs due to E.coli, K.pneumoniae, or P.mirablis. Cefazolin breakpoint is used as a surrogate to predict results for the oral agents - cefdinir, cefuroxime, and cephalexin, when used for therapy of uncomplicated UTIs due to E coli, K, pneumoniae, and P. mirabilis. The FDA recommends cefadroxil susceptibility can be deduced from cefazolin. Klebsiella pneumoniae GENTAMICIN <=1: S Klebsiella pneumoniae CEFTRIAXONE <=0.25: S Klebsiella pneumoniae CEFTAZIDIME <=0.5: S Klebsiella pneumoniae LEVOFLOXACIN <=0.12: S Klebsiella pneumoniae CIPROFLOXACIN <=0.06: S Klebsiella pneumoniae PIPERACILLIN/TAZO <=4: S Klebsiella pneumoniae AMPICILLIN/SULBACTAM 4: S Klebsiella pneumoniae CEFEPIME <=0.12: S Klebsiella pneumoniae MEROPENEM <=0.25: S Klebsiella pneumoniae NITROFURANTOIN 64: I Zandra MONTALVO MICROBIOLOGY Final Result [facility] [address] [place] [address], [place] * (ABNORMAL) BASIC METABOLIC PANEL (03/21/2025 3:14 PM CDT) Only the most recent of2 resultswithin the time period is included. [facility] GLUCOSE 96 65 - 99 mg/dL [facility] Comment: Fasting reference interval UREA NITROGEN (BUN) 32(H) 7 - 25 mg/dL [facility] CREATININE 1.59(H) 0.60 - 0.95 mg/dL [facility] EGFR 32(L) > OR = 60 mL/min/1.7 3m2 [facility] BUN/CREATININE RATIO 20 6 - 22 (calc) [facility] SODIUM 135 135 - 146 mmol/L [facility] POTASSIUM 4.7 3.5 - 5.3 mmol/L [facility] CHLORIDE 105 98 - 110 mmol/L [facility] CARBON DIOXIDE 23 20 - 32 mmol/L [facility] ELECTROLYTE BALANCE 7 7 - 17 mmol/L (calc) [facility] CALCIUM 8.9 8.6 - 10.4 mg/dL [facility] Blood BLOOD SPECIMEN / Unknown 03/21/2025 3:14 PM CDT 03/21/2025 3:15 PM CDT James Gonzales DO CHEMISTRY Final Result [facility] [address] [place] [address], [place] [phone] [facility] [address] [place] [address] * ECHO TTE COMPLETE WO CONTRAST (03/14/2025 3:04 PM CDT) AORTIC VALVE MEAN PG 5 mmHg EJECTION FRACTION 64 % PEAK TR VELOCITY 2.3 m/s LVEDD 4.2 cm EJECTION FRACTION 60 - 65% Anatomical Region Laterality Modality Ultrasound 03/14/2025 2:08 PM CDT Narrative 03/14/2025 3:22 PM CDT ECHOCARDIOGRAM SUN ALEMAN : 1940 84 years Study Date: 03/14/2025 2:08:19 PM Gender: F BP: 120/68 mmHg Height: 163.00 cm BSA: 1.83 m Weight: 77.00 kg Tech: KARRIE Referring MD: MEKA MOTTA Site: [facility] [place] Location: MOBILE OP Patient Location: Outpatient. Procedure: 2D, Color Doppler and Spectral Doppler. Indication for study: Chest pressure Resistant hypertension Cardiac Rhythm: Regular.Study quality: Fair. Final Impressions: 1. Normal LV size, normal wall thickness, normal function with an estimated EF of 60 - 65%. 2. Right ventricular cavity size is normal, global systolic RV function is normal. 3. The aortic valve is trileaflet and sclerotic, no stenosis and mild regurgitation. Comparison There are no prior studies on this patient for comparison purposes. Chamber Sizes and Function Normal left ventricular size, normal wall thickness, normal global systolic function with an estimated EF of 60 - 65%. No resting regional wall motion abnormality visualized. Left atrial size is normal. Left atrial pressure is normal. Right ventricular cavity size is normal, global systolic RV function is normal. RV wall thickness is normal. The right atrium is normal. Right atrial volume index is 25 ml/m . The pulmonary artery is of normal size and origin. The sinus of Valsalva is normal sized. The ascending aorta is borderline. Valves, RV Pressures and Diastolic Function The aortic valve is trileaflet and sclerotic, no stenosis and mild regurgitation. The mitral valve is normal in structure, mild mitral regurgitation. Normal diastolic function for age. The tricuspid valve is normal in structure, trace tricuspid regurgitation. The tricuspid regurgitant velocity is 2.3 m/s, the estimated right ventricular systolic pressure is 21 mmHg plus right atrial pressure. The pulmonic valve is normal. No pulmonary regurgitation. Masses, Effusion, Shunts There is no pericardial effusion. The inferior vena cava is normal sized, respiratory size variation greater than 50%. No left to right shunting was detected by limited color flow Doppler interrogation of the interatrial septum. MEASUREMENTS AND CALCULATIONS 2-D Measurements and LV Function: LVID (d) 4.2 cm LV FS% (2D) 33 % LVID (s) 2.8 cm LVOT diameter 2.0 cm IVS (d) 1.1 cm HR 53 bpm LVPW (d) 1.2 cm LA Vol index 29 ml/m2 Ao Sinus 3.3 cm RA Vol index 25 ml/m2 Ao Sinus ULN 3.7 cm * RV Basal Diam 3.6 cm Asc Ao 4.0 cm Asc Ao ULN 4.0 cm * * Input age outside of range, reported values correspond to Age = 80 Diastology: Mitral Tissue Doppler Pulmonary veins E Peak 1.2 m/s e', Septum 0.06 m/s Pulm s 65.6 cm/s A Peak 0.8 m/s e', Lateral 0.07 m/s Pulm d 72.6 cm/s E/A 1.5 E/e' Average 18.18 Pulm s/d ratio 0.90 DT 180 msec Aortic Valve: Vmax 1.5 m/s MARCELA (V) 2.22 cm AI P 1/2 554 msec VTI 0.39 m MARCELA (I) 2.42 cm LVOT V max 1.1 m/s Max PG 9 mmHg LVOT VTI 0.30 m Mean PG 5 mmHg SV 94 ml Dim Index 0.78 SV index 51 ml/m CO 5.0 l/min CI 2.7 l/min/m Mitral Valve: MVA 4.2 cm MV P 1/2 52 msec MV Mean G 2 mmHg MV VTI 0.46 m Tricuspid Valve and estimated PA pressures: TR Vmax 2.3 m/s TAPSE 1.9 cm TR maxG 21 mmHg Pulmonic Valve: PV Vmax 0.7 m/s . This study was interpreted by an [facility] accredited facility. Final Procedure Note Jose Eduardo Ybarra MD - 03/14/2025 ECHOCARDIOGRAM SUN ALEMAN : 1940 84 years Study Date: 03/14/2025 2:08:19 PM Gender: F BP: 120/68 mmHg Height: 163.00 cm BSA: 1.83 m Weight: 77.00 kg Tech: KARRIE Referring MD: MEKA MOTTA Site: [facility] [place] Location: MOBILE OP Patient Location: Outpatient. Procedure: 2D, Color Doppler and Spectral Doppler. Indication for study: Chest pressure Resistant hypertension Cardiac Rhythm: Regular.Study quality: Fair. Final Impressions: 1. Normal LV size, normal wall thickness, normal function with anestimated EF of 60 - 65%. 2. Right ventricular cavity size is normal, global systolic RV functionis normal. 3. The aortic valve is trileaflet and sclerotic, no stenosis and mildregurgitation. Comparison There are no prior studies on this patient for comparison purposes. Chamber Sizes and Function Normal left ventricular size, normal wall thickness, normal globalsystolic function with an estimated EF of 60 - 65%. No resting regionalwall motion abnormality visualized. Left atrial size is normal. Leftatrial pressure is normal. Right ventricular cavity size is normal, globalsystolic RV function is normal. RV wall thickness is normal. The rightatrium is normal. Right atrial volume index is 25 ml/m . The pulmonaryartery is of normal size and origin. The sinus of Valsalva is normalsized. The ascending aorta is borderline. Valves, RV Pressures and Diastolic Function The aortic valve is trileaflet and sclerotic, no stenosis and mildregurgitation. The mitral valve is normal in structure, mild mitralregurgitation. Normal diastolic function for age. The tricuspid valve isnormal in structure, trace tricuspid regurgitation. The tricuspidregurgitant velocity is 2.3 m/s, the estimated right ventricular systolicpressure is 21 mmHg plus right atrial pressure. The pulmonic valve isnormal. No pulmonary regurgitation. Masses, Effusion, Shunts There is no pericardial effusion. The inferior vena cava is normal sized,respiratory size variation greater than 50%. No left to right shunting wasdetected by limited color flow Doppler interrogation of the interatrialseptum. MEASUREMENTS AND CALCULATIONS 2-D Measurements and LV Function: LVID (d) 4.2 cm LV FS% (2D) 33% LVID (s) 2.8 cm LVOT diameter2.0 cm IVS (d) 1.1 cm HR 53bpm LVPW (d) 1.2 cm LA Vol index 29ml/m2 Ao Sinus 3.3 cm RA Vol index 25ml/m2 Ao Sinus ULN 3.7 cm * RV Basal Diam3.6 cm Asc Ao 4.0 cm Asc Ao ULN 4.0 cm * * Input age outside of range, reported values correspond to Age = 80 Diastology: Mitral Tissue Doppler Pulmonary veins E Peak 1.2 m/s e', Septum 0.06 m/s Pulm s 65.6 cm/s A Peak 0.8 m/s e', Lateral 0.07 m/s Pulm d 72.6 cm/s E/A 1.5 E/e' Average 18.18 Pulm s/d ratio 0.90 DT 180 msec Aortic Valve: Vmax 1.5 m/s MARCELA (V) 2.22 cm AI P 1/2 554 msec VTI 0.39 m MARCELA (I) 2.42 cm LVOT V max 1.1 m/s Max PG 9 mmHg LVOT VTI 0.30 m Mean PG 5 mmHg SV 94 ml Dim Index 0.78 SV index 51 ml/m CO 5.0 l/min CI 2.7 l/min/m Mitral Valve: MVA 4.2 cm MV P 1/2 52 msec MV Mean G 2 mmHg MV VTI 0.46 m Tricuspid Valve and estimated PA pressures: TR Vmax 2.3 m/s TAPSE 1.9 cm TR maxG 21 mmHg Pulmonic Valve: PV Vmax 0.7 m/s . This study was interpreted by an [facility] accredited facility. Final us Adei Kalia DO ECHO ORD Final Result * XR HIP 1 VIEW W PELVIS LEFT (03/03/2025 12:33 PM CDT) Anatomical Region Laterality Modality HIPS, HIPL, Pelvis Computed Radi ography 03/03/2025 1:49 PM CDT Narrative 03/03/2025 1:49 PM CDT For Patients: As a result of the Cures Act, medical imaging exams and procedure reports are released immediately into your electronic medical record. You may view this report before your referring provider. If you have questions, please contact your health care provider. Indication: Pain. Technique: AP view of the pelvis and one view of the left hip. Comparison: None. Findings: Bones: Alignment is normal. No fractures or bone lesions. Diffuse demineralization of visualized bones. Joint spaces: Mild to moderate degenerative changes of the bilateral hips and SI joints.. Soft tissues: Right ureteral stent is noted.. Impression: No acute fractures or dislocations identified. Degenerative changes. Dictated by Shanel Wyatt MD @ 03/03/2025 1:49:41 PM (Electronically Signed) Procedure Note Shanel Wyatt MD - 03/03/2025 For Patients: As a result of the Cures Act, medical imagingexams and procedure reports are released immediately into your electronicmedical record. You may view this report before your referring provider.If you have questions, please contact your health care provider. Indication: Pain. Technique: AP view of the pelvis and one view of the left hip. Comparison: None. Findings: Bones: Alignment is normal. No fractures or bone lesions. Diffusedemineralization of visualized bones. Joint spaces: Mild to moderate degenerative changes of the bilateral hipsand SI joints.. Soft tissues: Right ureteral stent is noted.. Impression: No acute fractures or dislocations identified. Degenerative changes. Dictated by Shanel Wyatt MD @ 03/03/2025 1:49:41 PM (Electronically Signed) us Tiffany Gibbons [facility] Final Result * AMB EPIDURAL STEROID INJECTION (02/16/2025 12:00 AM CDT) Ricky Canada MD NEUROLOGY ORD Final Resu lt * XR DEXA BONE DENSITY 2 SITES (04/29/2009) Anatomical Region Laterality Modality Spine, HIPS, HIPL, HIPR Bone Den sitometry Joe Mata DO DEXA Final Res ult from Last 3 Months or Most Recently Relevant to Health Maintenance Insurance MEDICARE PART B HB ONLY MEDICARE PART A HB ONLY [employer] [place] BLUE MR PB ONLY [place] BLUE HB ONLY MEDICARE PART B HB ONLY MEDICARE PART A HB ONLY BC [place] [facility] Advance Directives * Full Code (Latest Code Status on File) Date Activated Date Inactivated Comments 03/06/2024 7:50 AM 03/06/2024 1:33 PM Question Answer Comments Code Status Discussion: Unable to Assess Preferences, Provider to review later * Full Code Date Activated Date Inactivated Comments 05/26/2023 11:23 AM 05/26/2023 4:43 PM Question Answer Comments Code Status Discussion: Discussed * Full Code Date Activated Date Inactivated Comments 05/31/2014 8:45 AM 05/31/2014 2:46 PM * Full Code Date Activated Date Inactivated Comments 06/01/2007 2:52 PM 06/01/2007 10:10 PM * Full Code Date Activated Date Inactivated Comments 06/01/2007 12:40 PM 06/01/2007 2:52 PM Care Teams Leadite Worker Relationship Specialty Start Date End Date Meka Motta DO [address] [place] [address] PCP - General Family Practice 03/01/24 Zachariah Porter MD [address] [phone] Consulting Physician Nephrology 03/05/25
--- OUTSIDE RECORDS SUMMARY | 2025-04-29 03:29 | XMS_ITS | Clinical Summary ---
Author Organization [facility] Address [address] [place] [address] Care Team Providers Care Rehanger Name Role Phone Irma Mandujano MD Primary Care Provider [phone] Allergies Active Allergy Reactions Criticality Noted Date Comments Abdon Inhibitors 09/07/2012 Levsin 09/07/2012 Metoprolol Succinate 09/07/2012 Medications vitamin D3 (CHOLECALCIFEROL) 50 mcg (2000 units) [...] Take 1 tablet by mouth daily. Active Active Problems Problem Noted Date Diagnosed Date Urinary tract infection 06/10/2024 Diaphragmatic hernia 02/17/2024 Edema 02/17/2024 Overview (02/17/2024): echo w/ EF 60% 01/31 Vitamin D deficiency 02/17/2024 Renal insufficiency 02/17/2024 Hypertensive urgency 02/17/2024 Anemia, unspecified type 02/17/2024 Ureteral stent present 02/17/2024 Asthma 02/16/2024 CHI (closed head injury) 02/16/2024 Mass of right lung 02/16/2024 TIA (transient ischemic attack) 02/16/2024 Anemia 12/24/2023 Hydronephrosis with ureteral stricture, not elsewhere classified 12/24/2023 retirement current use of anticoagulant Atrial fibrillation, unspecified type 12/18/2022 Hypertensive kidney disease, stage V 01/05/2022 Aortic valve regurgitation 12/08/2021 Mitral valve regurgitation 12/08/2021 Gastroesophageal reflux disease without esophagi tis 10/24/2021 Chronic fibrosis of lung 10/23/2021 Essential hypertension 07/31/2021 retirement (current) use of aspirin 07/31/2021 History of falling 06/17/2020 Hyperlipidemia 11/30/2019 Hypothyroidism 11/23/2019 Lung granuloma 03/01/2019 Overview (02/17/2024): CT stable [address] [place] continues to confirm no change 2019 Arthritis [...] you bought just not last and you didn t have money to get more? No 06/10/2024 Housing Stability Answer Date Recorded Do you have housing? (Housin g is defined as stable permanent housing and does not include staying outside in a car, in a tent, in an abandoned building, in an overnight halfway, or couch-surfing.) Yes 06/10/2024 Are you worried [...] by your partner or ex-partner? No 06/11/2024 Comments No Sex and Gender Information Value Date Recorded Sex Assigned at Not on file Legal Sex Female 3:20 AM TRAIN DIRECTOR Gender Identity Not on file Sexual Orientation Not on file Last Filed Vital Signs Vital Sign Reading Time Taken Comments Blood Pressure 158/65 06/12/2024 7:39 AM CDT Pulse 60 06/12/2024 7:39 AM CDT Temperature 36.6 C (97.8 F) 06/12/2024 7:39 AM CDT Respiratory Rate 16 06/12/2024 7:39 AM CDT [...] ACTION PLAN 1940 ASTHMA CONTROL TEST 1940 LIPID 1940 MICROALBUMIN 1940 PARATHYROID 1940 PHOSPHORUS 1940 ALK PHOS 1941 FALL RISK ASSESSMENT 2005 DTAP/TDAP/TD VACCINE (1 - Tdap) 01/27/2008 01/26/2008, 02/26/1988 ZOSTER VACCINE (2 of 3) 03/22/2008 01/26/2008 RSV VACCINE (1 - 1-dose 75+ series) 2015 MEDICARE ANNUAL WELLNESS VISIT 01/05/2023 01/05/2022 DEXA 04/29/2024 04/29/2009 COVID-19 VACCINE ( - 2023- season) 2024 BMP 09/11/2024 06/12/2024, 05/28, 02/18/2024, Additional history exists PHQ-2 (once per calendar year) 2024 HEMOGLOBIN 12/09/2024 06/11/2024, 02/17/2024 TSH W/FREE T4 REFLEX 02/16/2025 02/17/2024 INFLUENZA VACCINE (#1) 2025 6, 06/24/2015, 07/17/2014, Additional history exists PNEUMOCOCCAL VACCINE 50+ YEARS Completed 04/20/2017, 09/15/2005 URINALYSIS Completed 02/18/2024 HPV VACCINE (No Doses Required) Completed MENINGITIS VACCINE Aged Out No longer eligible based on patient's age to complete this topic Medical Devices Implanted Type Area Compress Machine Operator Device Identifier Shelf Expiration Date Model / Serial / Lot Stent Ureteral Polaris Ultra [id number] - [id number] Implanted:Qty : 1 on 06/10/2024 by Keenan Sharpe MD at [facility] Stent Right: Urethra [employer] [id number] 12/12/2026 [id number] Procedures Procedure Name Priority Date/Time Associated Diagnosis Comments BASIC METABOLIC PANEL Timed 06/12/2024 8:40 AM CDT CBC WITH PLATELETS Routine 06/11/2024 7: 03 AM CDT UA MACROSCOPIC WITH REFLEX TO MICRO AND CULTURE STAT 02/18/2024 11:04 AM CDT TSH WITH FREE T4 REFLEX Add-On 02/17/2024 11:05 AM CDT from Last 3 Months or Most Recently Relevant to Health Maintenance Results * (ABNORMAL) Basic metabolic panel (06/12/2024 8:40 AM CDT) [facility] Sodium 138 135 - 145 mmol/L 06/12/2024 9:14 AM CDT LABORATORY Potassium 4.2 3.4 - 5.3 mmol/L 06/12/2024 9:14 AM CDT LABORATORY Chloride 104 98 - 107 mmol/L 06/12/2024 9:14 AM T LABORATORY Carbon Dioxide (CO2) 24 22 - 29 mmol/L 06/12/2024 9:14 AM [facility] LABORATORY Anion Gap 10 7 - 15 mmol/L 06/12/2024 9:14 AM T LABORATORY Urea Nitrogen 36.3(H) 8.0 - 23.0 mg/dL 06/12/2024 9:14 AM T LABORATORY Creatinine 1.89(H) 0.51 - 0.95 mg/dL 06/12/2024 9:14 AM T LABORATORY GFR Estimate 26(L) >60 mL/min/1.7 3m2 06/12/2024 9:14 AM [facility] LABORATORY Comment:eGFR calculated usin 2020 CKD-EPI equation. [...] CDT Kerry Saavedra DO LAB - BLOOD ORDERABLE S Final Result LABORATORY [facility] [address] floor, [address] [place] [address], [place] [phone] * (ABNORMAL) CBC with platelets (06/11/2024 7:03 AM CDT) [facility] WBC Count 9.8 4.0 - 11.0 10e3/uL [...] CDT Fawad Reardon DO LAB - BLOOD ORDERABLES Final Result LABORATORY [facility] [address] floor, [address] [place] [address], [place] [phone] * (ABNORMAL) UA Macroscopic with reflex to [...] mg/dL 02/18/2024 11:33 AM CDT LABORATORY Specific [place] Urine 1.011 1.003 - 1.035 02/18/2024 11:33 [...] ordered based on laboratory criteria Moy Renteria POULTRY SCALDER LAB - URINE ORDERA BLES Final Result LABORATORY [facility] [address], [address] [place] [address], [facility] [phone] * TSH with free T4 reflex (02/17/2024 11:05 AM CDT) TSH 1.38 0.30 - 4.20 uIU/mL 02/17/2024 2:02 PM CDT LABORATORY Blood BLOOD SPECIMEN / Unknown Venipuncture / Unknown 02/17/2024 11:05 AM CDT 02/17/2024 11:10 AM CDT Benjamin Moss DO LAB - BLOOD ORDERABLE S Final Result Performing Organization Address City/State/[facility] Co de Phone Number LABORATORY [facility] [address], [address] [place] [address], [facility] [phone] from Last 3 Months or Most Recently Relevant to Health Maintenance Insurance MEDICARE [facility] MEDICARE BC [facility] [employer] [place] BLUE Advance Directives For more information, please contact: [phone] * Full Code (Latest Code Status on File) Date Activated Date Inactivated Comments 06/10/2024 7:58 PM 06/12/2024 5:05 PM All basic an d advanced life-sustaining interventions are performed as appropriate Question Answer Comments Code status determined by: Discussion with patie nt/ legal decision maker * Full Code Date Activated Date Inactivated Comments 02/17/2024 3:57 PM 02/18/2024 7:29 PM All basic an d advanced life-sustaining interventions are performed as appropriate Question Answer Comments Code status determined by: Discussion with patie nt/ legal decision maker Care Teams Rehanger Relationship Specialty Start Date End Date Irma Mandujano [place] [address] [place] [address] PCP - General Family Medicine 02/23/24
--- OUTSIDE RECORDS SUMMARY | 2025-04-29 03:29 | XMS_ITS | Encounter Summary ---
Author Organization [facility] Address [address] [place] [address] Care Team Providers Care Top Polisher Name Role Phone Elsewhere, Pcp Primary Care Provider Unavailabl e Encounter Details Date Type Department Care Team (Late st Contact Info) Description 02/28/2025 Orders Only Department of Urology in [place], [place] [address] [place] [address] Yadira Drummond, PeFiAFei-Nikhil. [address] [place] [address] Obstruction Kidney (Primary Dx) Social History Tobacco Use Types Packs/Day Years Used Date Smoking Tobacco: Never Smokeless Tobacco: Never Alcohol Use Standard Drinks/Week Comments Not Currently 0 (1 standard drink = 0.6 oz pur e alcohol) [facility] Utilities Answer Date Recorded In the past 12 months has [facility], gas, oil, or water [employer] threatened to shut off services in your [...] your living situation today? I have a [facility] place to live 03/06/2025 Education Answer Date Recorded What is the highest level of school you have completed or the highest degree you have received? Associate degree: occupational, technical, or vocational program 05/27/2020 Comments Unknown Sex and Gender Information Value Date Recorded Sex Assigned at Female 02/19/2025 10:16 AM CDT Legal Sex Female 2:16 PM DRAG OUT MAN Gender Identity Female 02/19/2025 10:16 AM CDT Sexual Orientation Straight 02/19/2025 10 :16 AM CDT documented as of this encounter Plan of Treatment Upcoming Encounters Date Type Department Care Team (Late st Contact Info) Description 05/08/2025 7:10 AM CDT Appointment Department of Laboratory Medicine and Pathology, [facility] in [place], [place] [address] [place] [phone] Yadira Drummond, P.A.-C. [address] [place] [phone] 05/08/2025 9:30 AM CDT Appointment Department of Radiology, [place], [place] [address] [place] [address] Yadira Drummond, P.A.-C. [address] [place] [phone] 05/08/2025 1:30 PM CDT Procedure visit Department of Urology in [place], [place] [address] [place] [address] Yadira Drummond P.A.-C. [address] [place] [phone] 05/08/2025 2:30 PM CDT Appointment Department of Radiology, [facility], in [place], [place] [address] [place] [address] Yadira Drummond P.A.-C. [address] [place] [phone] 05/09/2025 9:30 AM CDT Procedure visit Department of Urology in [place], [place] [address] [place] [address] Rupert Loving M.D. [address] [place] [phone] 05/09/2025 10:00 AM CDT Comprehensive Visit Department of Urology in [place], [place] [address] [place] [phone] Rupert Loving M.D. [address] [place] [phone] documented as of this encounter Visit Diagnoses Diagnosis Obstruction Kidney- Primary documented in this encounter Care Teams Top Polisher Relationship Specialty Start Date End Date Elsewhere, Pcp PCP - General Internal Medicine 03/06/25 04/17/25 documented as of this encounter
--- OUTSIDE RECORDS SUMMARY | 2025-04-29 03:29 | XMS_ITS | Encounter Summary ---
Author Organization [facility] Address [address] [place] [address] Care Team Providers Care Millinery Copyist Name Role Phone Elsewhere, Pcp Primary Care Provider Unavailabl e Reason for Referral * Outpatient (Routine) - Authorized Specialty Diagnoses / Procedures Referred By Contac t Referred To Contact Diagnoses Obstruction Kidney Procedures NM Kidney with Yadira Matthews PFeiASav [address] [place] [address] Phone: tel: fax: [facility] Referral ID Status Reason Start Date Expiration Date V isits Requested Visits Authorized [id number] Authorized 02/13/2025 05/16/2026 8 8 Encounter Details Date Type Department Care Team (Late st Contact Info) Description 02/13/2025 Orders Only Department of Urology in [place], [place] [address] [place] [phone] [facility], MD Jenny Obstruction Kidney Social History Tobacco Use Types Packs/Day Years Used Date Smoking Tobacco: Never Smokeless Tobacco: Never Alcohol Use Standard Drinks/Week Comments Not Currently 0 (1 standard drink = 0.6 oz pur e alcohol) Hunger Vital Sign Answer Date Recorded Within the past 12 months, y ou worried that your food would run out before you got the money to buy more. Never true 05/27/20 20 Within the past 12 months, t he food you bought just didn't last and you didn't have money to get more. Never true 05/27/2020 PRAPARE - Transportation Answer Date Re corded In the past 12 months, has l ack of transportation kept you from medical appointments or from getting medications? No 04/29 In the past 12 months, has l ack of transportation kept you from meetings, work, or from getting things needed for daily living? No 05/27/2020 Education Answer Date Recorded What is the highest level of school you have completed or the highest degree you have received? Associate degree: occupational, technical, or vocational program 05/27/2020 Comments Unknown Sex and Gender Information Value Date Recorded Sex Assigned at Female 02/19/2025 10:16 AM CDT Legal Sex Female 2:16 PM COUNTY JUDGE Gender Identity Female 02/19/2025 10:16 AM CDT Sexual Orientation Straight 02/19/2025 10 :16 AM CDT documented as of this encounter Plan of Treatment Upcoming Encounters Date Type Department Care Team (Late st Contact Info) Description 05/08/2025 7:10 AM CDT Appointment Department of Laboratory Medicine and Pathology, [facility] in [place], [place] [address] [place] [phone] Yadira Drummond, P.A.-C. [address] [place] [phone] 05/08/2025 9:30 AM CDT Appointment Department of Radiology, [facility] in [place], [place] [address] [place] [phone] Yadira Drummond, PFeiA.-CFei [address] [place] [phone] 05/08/2025 1:30 PM CDT Procedure visit Department of Urology in [place], [place] [address] [place] [phone] Yadira Drummond, ErasmoA.-CFei [address] [place] [phone] 05/08/2025 2:30 PM CDT Appointment Department of Radiology, [facility] in [place], [place] [address] [place] [address] Yadira Drummond P.A.-C. [address] [place] [phone] 05/09/2025 9:30 AM CDT Procedure visit Department of Urology in [place], [place] [address] [place] [address] Rupert Loving M.D. [address] [place] [phone] 05/09/2025 10:00 AM CDT Comprehensive Visit Department of Urology in [place], [place] [address] [place] [phone] Rupert Loving M.D. [address] [place] [phone] documented as of this encounter Results * NM Kidney with Lasix (02/20/2025 3:58 [...] evidence of obstruction. us Yadira Drummond P.A.-C. [facility] PROCEDURES Final Result * Urinalysis, with Microscopic: Urine, Midstream (02/20/2025 1:01 PM CDT) Source Urine, Urine, Midstream 02/20/2025 1:36 PM CDT DTL Color, U Yellow 02/20/2025 1:36 PM CDT DTL Clarity, U Clear 02/20/2025 1:36 PM CDT DTL Protein, U 9 <26 mg/dL 02/20/2025 2:22 PM CDT DTL Protein/Osmol ality 0.16 <0.42 ratio 02/20/2025 2:22 PM CDT DTL Predicted 24 HR Protein, U 130 <229 mg/24 h 02/20/2025 2:22 PM CDT DTL Predicted Range 32-526 mg/24 h 02/20/2025 2:22 PM CDT DTL Urine (Urine, Midstream) 02/20/2025 1:01 PM CDT 02/20/2025 1:36 PM CDT us Yadira Drummond P.A.-C. LAB URINE ORDERABLES Fin al Result [place] [address] [place] [address], [facility] DTL [facility] [address] [place] [address] documented in this encounter Visit Diagnoses Diagnosis Obstruction Kidney Obstruction Kidney documented in this encounter Care Teams Millinery Copyist Relationship Specialty Start Date End Date Elsewhere, Pcp PCP - General Internal Medicine 04/18/25 documented as of this encounter
--- OUTSIDE RECORDS SUMMARY | 2025-04-29 03:29 | XMS_ITS | Encounter Summary ---
Author Organization [facility] Address [address] [place] [address] Care Team Providers Care Assembler Semiconductor Name Role Phone Elsewhere, Pcp Primary Care Provider Unavailabl e Encounter Details Date Type Department Care Team (Late st Contact Info) Description 03/19/2025 Orders Only Department of Radiology, [facility], in [place], [place] [address] [place] [phone] Shannon Kruger, COOPER, C.N.P., M.S.N. [address] [place] [phone] Hydronephrosis (Primary Dx); Obstruction Kidney Social History Tobacco Use Types Packs/Day Years Used Date Smoking Tobacco: Never Smokeless Tobacco: Never Alcohol Use Standard Drinks/Week Comments Not Currently 0 (1 standard drink = 0.6 oz pur e alcohol) [facility] Utilities Answer Date Recorded In the past 12 months has [facility] [employer], gas, oil, or water [email or web address] threatened to shut off services in your [...] your living situation today? I have a [facility] place to live 03/06/2025 Education Answer Date Recorded What is the highest level of school you have completed or the highest degree you have received? 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 AND WEIGHER Gender Identity Female 02/19/2025 10:16 AM CDT Sexual Orientation Straight 02/19/2025 10 :16 AM CDT documented as of this encounter Plan of Treatment Upcoming Encounters Date Type Department Care Team (Late st Contact Info) Description 05/08/2025 7:10 AM CDT Appointment Department of Laboratory Medicine and Pathology, [place], [place] [address] [place] [address] Yadira Drummond P.A.-Graham [address] [place] [phone] 05/08/2025 9:30 AM CDT Appointment Department of Radiology, [place], [place] [address] [place] [address] Yadira Drummond P.A.-CFei [address] [place] [phone] 05/08/2025 1:30 PM CDT Procedure visit Department of Urology in [place], [place] [address] [place] [address] Yadira Drummond P.A.-C. [address] [place] [phone] 05/08/2025 2:30 PM CDT Appointment Department of Radiology, [facility], in [place], [place] [address] [place] [address] Yadira Drummond P.A.-C. [address] [place] [phone] 05/09/2025 9:30 AM CDT Procedure visit Department of Urology in [place], [place] [address] [place] [phone] uRpert Loving M.D. [address] [place] [phone] 05/09/2025 10:00 AM CDT Comprehensive Visit Department of Urology in [place], [place] [address] [place] [phone] Rupert Loving M.D. [address] [place] [phone] documented as of this encounter Visit Diagnoses Diagnosis Hydronephrosis- Primary Obstruction Kidney documented in this encounter Care Teams Assembler Semiconductor Relationship Specialty Start Date End Date Elsewhere, Pcp PCP - General Internal Medicine 03/06/25 04/17/25 documented as of this encounter
--- OUTSIDE RECORDS SUMMARY | 2025-04-29 03:29 | XMS_ITS | Encounter Summary ---
Author Organization [facility] Address [address] [place] [address] Care Team Providers Care Psychology Department Chair Name Role Phone Elsewhere, Pcp Primary Care Provider Unavailabl e Encounter Details Date Type Department Care Team (Late st Contact Info) Description 03/20/2025 Results Follow-Up [facility] 505 Shannon Kruger, TELEGRAPHIC TYPEWRITER OPERATOR CHIEF, C.N.P., M.S.N. [address] [place] [phone] CBC without Differential Social History Tobacco Use Types Packs/Day Years Used Date Smoking Tobacco: Never Smokeless Tobacco: Never Alcohol Use Standard Drinks/Week Comments Not Currently 0 (1 standard drink = 0.6 oz pur e alcohol) [facility] Utilities Answer Date Recorded In the past 12 months has e [employer], gas, oil, or water [employer] threatened to shut off services in your [...] your living situation today? I have a [facility] place to live 03/06/2025 Education Answer Date Recorded What is the highest level of school you have completed or the highest degree you have received? Associate degree: occupational, technical, or vocational program 05/27/2020 Comments No Sex and Gender Information Value Date Recorded Sex Assigned at Female 02/19/2025 10:16 AM CDT Legal Sex Female 2:16 PM CAD DETAILER Gender Identity Female 02/19/2025 10:16 AM CDT Sexual Orientation Straight 02/19/2025 10 :16 AM CDT documented as of this encounter Plan of Treatment Upcoming Encounters Date Type Department Care Team (Late st Contact Info) Description 05/08/2025 7:10 AM CDT Appointment Department of Laboratory Medicine and Pathology, [facility] in [place], [place] [address] [place] [address] Yadira Drummond, PFeiA.-CFei [address] [place] [address] 05/08/2025 9:30 AM CDT Appointment Department of Radiology, [facility] in [place], [place] [address] [place] [address] Yadira Drummond P.A.-CFei [address] [place] [phone] 05/08/2025 1:30 PM CDT Procedure visit Department of Urology in [place], [place] [address] [place] [address] Yadira Drummond P.A.-C. [address] [place] [phone] 05/08/2025 2:30 PM CDT Appointment Department of Radiology, [facility], in [place], [place] [address] [place] [address] Yadira Drummond P.A.-C. [address] [place] [phone] 05/09/2025 9:30 AM CDT Procedure visit Department of Urology in [place], [place] [address] [place] [address] Rupert Loving M.D. [address] [place] [phone] 05/09/2025 10:00 AM CDT Comprehensive Visit Department of Urology in [place], [place] [address] [place] [phone] Rupert Loving M.D. [address] [place] [phone] documented as of this encounter Visit Diagnoses Not on filedocumented in this encounter Care Teams Psychology Department Chair Relationship Specialty Start Date End Date Elsewhere, Pcp PCP - General Internal Medicine 03/06/25 04/17/25 documented as of this encounter
--- OUTSIDE RECORDS SUMMARY | 2025-04-29 03:29 | XMS_ITS | Encounter Summary ---
Author Organization [facility] Address [address] [place] [address] Care Team Providers Care Blender Name Role Phone Elsewhere, Pcp Primary Care Provider Unavailabl e Encounter Details Date Type Department Care Team (Late st Contact Info) Description 04/19/2025 Results Follow-Up [facility] [address] [place] [address] Isidra Donnelly M.S.N., R.N. Bacterial Culture, Aerobic + Susceptibility, Urine Social History Tobacco Use Types Packs/Day Years Used Date Smoking Tobacco: Never Smokeless Tobacco: Never Alcohol Use Standard Drinks/Week Comments Not Currently 0 (1 standard drink = 0.6 oz pur e alcohol) [facility] Utilities Answer Date Recorded In the past 12 months has e [employer], gas, oil, or water [employer] threatened to shut off services in your [...] your living situation today? I have a [facility] place to live 03/06/2025 Education Answer Date Recorded What is the highest level of school you have completed or the highest degree you have received? Associate degree: occupational, technical, or vocational program 05/27/2020 Comments No Sex and Gender Information Value Date Recorded Sex Assigned at Female 02/19/2025 10:16 AM CDT Legal Sex Female 2:16 PM RN WOUND Gender Identity Female 02/19/2025 10:16 AM CDT Sexual Orientation Straight 02/19/2025 10 :16 AM CDT documented as of this encounter Plan of Treatment Upcoming Encounters Date Type Department Care Team (Late st Contact Info) Description 05/08/2025 7:10 AM CDT Appointment Department of Laboratory Medicine and Pathology, [place], [place] [address] [place] [address] Yadira Drummond, P.A.-C. [address] [place] [phone] 05/08/2025 9:30 AM CDT Appointment Department of Radiology, [place], [place] [address] [place] [address] Yadira Drummond, ErasmoAFei-C. [address] [place] [phone] 05/08/2025 1:30 PM CDT Procedure visit Department of Urology in [place], [place] [address] [place] [address] Yadira Drummond P.A.-C. [address] [place] [phone] 05/08/2025 2:30 PM CDT Appointment Department of Radiology, [facility], in [place], [place] [address] [place] [address] Yadira Drummond P.A.-C. [address] [place] [phone] 05/09/2025 9:30 AM CDT Procedure visit Department of Urology in [place], [place] [address] [place] [address] Rupert Loving M.D. [address] [place] [phone] 05/09/2025 10:00 AM CDT Comprehensive Visit Department of Urology in [place], [place] [address] [place] [phone] Rupert Loving M.D. [address] [place] [phone] documented as of this encounter Visit Diagnoses Not on filedocumented in this encounter Care Teams Blender Relationship Specialty Start Date End Date Elsewhere, Pcp PCP - General Internal Medicine 04/18/25 documented as of this encounter
[2025-04-29 03:34] VITALS: BP 185/85; PULSE 75; RESP 18; TEMP 36.8; O2SAT 99; BMI 29.7
[2025-04-29] MEDS: AZITHROMYCIN 250 MG TABLET 500 MG PO (04:20)
[2025-04-29] MEDS: IPRAT-ALBUT 0.5-2.5 MG/3 ML NEB 1 NEB IH (04:21)
[2025-04-29] MEDS: BUDESONIDE 0.5 MG/2ML NEB NEB (04:21)
--- NOTE | 2025-04-29 05:13 | ED.GENADULT ---
HPI - General Adult General Chief complaint: Shortness of Breath/Dyspnea Stated complaint: asthma Time Seen by Provider: 04/29/25 03:59 Source: patient Mode of arrival: ambulatory Limitations: no limitations History of Present Illness HPI narrative: 85-year-old female with history of reactive airway disease presents with a 4 day history of shortness of breath. Nonexertional. No chest pain. Feels like she is wheezing. No fever. Tried using her albuterol at home which does help somewhat but just not sufficiently. No recent steroid use. Does not have other medications to use. Tends to get 1-2 flares per year but does not typically need steroids or antibiotics, inhaler is typically sufficient. Unfortunately, not meeting her needs today. Did not check her pulse or oxygen levels prior to coming to the ED. no recent changes to medications. She does have a history of urinary obstruction and is currently under the care of a urologist and is scheduled to have surgical repair in 2 weeks. She has a deaf tube in place and is on prophylactic Keflex as an antibiotic. No pain, no recent trauma. No nausea or vomiting, no GI changes. Past medical history notable for prior AFib, is anticoagulated on apixaban. Also has hypothyroidism, hypertension and reactive airway disease. Home meds reviewed, accurate as listed per patient with the exception of also taking prophylactic Keflex not listed. Sounds as though it is 250 once daily by her description. Reports that the records are through [employer] and I do not have those. Nonsmoker. . Lives independently. ROS is notable for the respiratory symptoms only, otherwise denies times 12 systems. Related Data Home Medications ?Medication ?Instructions ?Recorded ?Confirmed levothyroxine 88 mcg tablet 88 mcg PO DAILY 01/07/23 04/29/25 (Synthroid) losartan 25 mg tablet 50 mg PO DAILY 01/07/23 04/29/25 albuterol sulfate 2.5 mg/3 mL 2.5 mg continuous nebulization Q4H 01/14/23 04/29/25 (0.083 %) solution for nebulization PRN cough aspirin 81 mg tablet,delayed 81 mg PO DAILY 02/14/24 04/29/25 release (Adult Aspirin Regimen) apixaban 2.5 mg tablet (Eliquis) 2.5 mg PO BID 04/29/25 04/29/25 dabigatran etexilate 75 mg capsule 75 mg PO BID 04/29/25 04/29/25 metoprolol tartrate 25 mg tablet 12.5 mg PO Q12H 04/29/25 04/29/25 valsartan 40 mg tablet 40 mg PO DAILY 04/29/25 04/29/25 Previous Rx's ?Medication ?Instructions ?Recorded albuterol sulfate 90 mcg/actuation 2 puff inhalation Q4-6H PRN 04/29/25 aerosol inhaler shortness of breath or wheezing #8.5 grams ipratropium 0.5 mg-albuterol 3 mg 3 ml inhalation Q6H PRN #90 mL 04/29/25 (2.5 mg base)/3 mL nebulization soln Allergies Allergy/AdvReac Type Severity Reaction Status Date / Time WILLIAM Inhibitors Allergy Mild Hives Verified 04/29/25 03:39 hyoscyamine (From Levsin) Allergy Mild Hives Verified 04/29/25 03:39 apixaban (From Eliquis) AdvReac Intermediate Diarrhea Verified 04/29/25 03:39 lisinopril AdvReac Mild Cough Verified 04/29/25 03:39 metoprolol AdvReac Mild Cough Verified 04/29/25 03:39 PFSH [facility] Medical History Vitamin D deficiency ?E55.9 - Vitamin D deficiency, unspecified (ICD-10) Osteopenia ?M85.80 - Other specified disorders of bone density and structure, unspecified site (ICD-10) 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 - Migraine with aura, not intractable, without status migrainosus (ICD-10) Intestinal infection due to campylobacter ?A04.5 - Campylobacter enteritis (ICD-10) Hypothyroidism ?E03.9 - Hypothyroidism, unspecified (ICD-10) Hypertension ?I10 - Essential (primary) hypertension (ICD-10) Hyperlipidemia ?E78.5 - Hyperlipidemia, unspecified (ICD-10) Hiatal hernia ?K44.9 - Diaphragmatic hernia without obstruction or gangrene (ICD-10) Esophageal reflux ?K21.9 - Gastro-esophageal reflux disease without esophagitis (ICD-10) Edema ?R60.9 - Edema, unspecified (ICD-10) Duodenal ulcer, unspecified as acute or chronic, without hemorrhage or perforation ?K26.9 - Duodenal ulcer, unspecified as acute or chronic, without hemorrhage or perforation (ICD-10) Chest pain ?R07.9 - Chest pain, unspecified (ICD-10) Anticoagulation monitoring, INR range 2-3 ?Z79.01 - 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 (ICD-10) Surgical History History of eye surgery ?Z98.890 - Other specified postprocedural states (ICD-10) History of lumbar discectomy ?Z98.890 - Other specified postprocedural states (ICD-10) History of cholecystectomy ?Z90.49 - Acquired absence of other specified parts of digestive tract (ICD-10) History of knee replacement ?Z96.659 - Presence of unspecified artificial knee joint (ICD-10) History of surgery on lower extremity ?Z98.890 - Other specified postprocedural states (ICD-10) History of surgery on lower extremity ?Z98.890 - Other specified postprocedural states (ICD-10) History of esophagogastroduodenoscopy (EGD) ?Z98.890 - Other specified postprocedural states (ICD-10) S/P epidural steroid injection ?Z92.241 - Personal history of systemic steroid therapy (ICD-10) History of colonoscopy ?Z98.890 - Other specified postprocedural states (ICD-10) History of cataract removal with insertion of prosthetic lens ?Z98.49 - Cataract extraction status, unspecified eye (ICD-10) ?Z96.1 - Presence of intraocular lens (ICD-10) History of breast augmentation ?Z98.82 - Breast implant status (ICD-10) History of appendectomy ?Z90.49 - Acquired absence of other specified parts of digestive tract (ICD-10) Social History Smoking Status: Never smoker Do you use any of these nicotine containing products: None Second hand tobacco smoke exposure: No How often do you have a drink containing alcohol: never How often do you have six or more drinks on one occasion: Never AUDIT-C Alcohol total score: 0 Non-prescribed substance use: denies use service: No Exam Const: Vital Signs, click to edit/add: Vital Signs - 24 hr 04/29/25 03:34 Temperature 98.2 F Pulse Rate [Right Pulse Oximeter] 75 Respiratory Rate 18 Blood Pressure [Ri ght Upper Arm] 185/85 H Pulse Oximetry 99 Oxygen Delivery Me thod Room Air Documenting provider has reviewed patient's vital signs: yes Common normals: no apparent distress General appearance: cooperative and well kempt HENMT: Common normals: normocephalic and oropharynx normal Head and scalp: normocephalic Eye: Common normals: conjunctivae normal General eye: normal appearance of both eyes Conjunctiva: conjunctiva(e) normal Neck & C-Spine: Common normals: full ROM and no lymphadenopathy General: normal visual inspection Resp: Common normals: normal respiratory effort and no use of accessory muscles Other: Mild expiratory wheeze with mild coarse upper airway sounds. No prolongation of expiration, respiratory distress, rhonchi or rales. Cardio: Common normals: regular rate, regular rhythm, S1 normal heart sound, S2 normal heart sound and no murmurs Rate: regular rate Rhythm: regular rhythm Heart sounds: S1 normal and S2 normal Extremity: Common normals: normal capillary refill and no pedal edema Other: Lots of spider veins, no pitting edema. Psych: Common normals: speech normal Appearance: well kempt Attitude: engaged Activity/motor behavior: appropriate eye contact Speech: normal speech Mood and affect: euthymic mood Insight: insight good Judgement: judgment good Skin: Common normals: no rashes or lesions noted General skin exam: no rashes or lesions noted Course Course ED Course: 85-year-old female with 4 days of intermittent shortness of breath. Very poor air quality from the [place] smoke for the last few days, very unhealthy levels. This is likely her trigger. She has no fever, no hypoxia, exam is fairly reassuring but unfortunately air quality is going to stay pretty terrible for a few more days. Because of this, I have recommended stronger than usual treatment. Will give DuoNeb and Pulmicort here in the ED. Start prednisone 20 mg once daily and start azithromycin. She will continue on 20 mg of azithromycin daily for at least the next 3 days, may continue for up to 5 days based on symptomatology and air quality. Azithromycin 250 daily after given initial 500 mg here in the ED. She will take those in the evenings. It will only be about 20 hours in between her 1st and 2nd dose but I would like to get her on a better schedule for optimal sleep. Rationale reviewed. Counseled patient that unfortunately she is probably going to get him more flares as she ages and I would like her to have access to an albuterol inhaler also. She was initially hesitant but then agrees when I explained the rationale. She still likes to travel and is on the go a fair amount. I have also refilled her prescription for her nebulizer solution and recommended she try the DuoNeb to help clear the mucus and have sent a prescription for these. Follow-up with primary care if not starting to improve in 3 days. Alarm symptoms that would warrant ED re-evaluation were reviewed as well. She verbalizes understanding and agreement. No indications for CT, chest x-ray or additional workup today. She reports improvement to the nursing team after nebulizer treatment here in the ED. Vital Signs Vital signs: Initial Vital Signs Temperature 98.2 F 04/29/25 03:34 Temperature Source Temporal Artery Scan 04/29/25 03:34 Pulse Rate 75 04/29/25 03:34 Respiratory Rate 18 04/29/25 03:34 Respiratory Effort Normal, Spontaneous, Non-Labored 04/29/25 03:34 Respiratory Depth Normal 04/29/25 03:34 Respiratory Pattern Normal 04/29/25 03:34 Blood Pressure 185/85 H 04/29/25 03:34 Blood Pressure Mean 118 H 04/29/25 03:34 Blood Pressure Position Sitting 04/29/25 03:34 Pulse Oximetry 99 04/29/25 03:34 Oxygen Delivery Method Room Air 04/29/25 03:34 Vital Signs Temperature 98.2 F 04/29/25 03:34 Pulse Rate 75 04/29/25 03:34 Respiratory Rate 18 04/29/25 03:34 Blood Pressure 185/85 H 04/29/25 03:34 Pulse Oximetry 99 04/29/25 03:34 Oxygen Delivery Method Room Air 04/29/25 03:34 Temperature 98.2 F 04/29/25 03:34 Pulse Rate 75 04/29/25 03:34 Respiratory Rate 18 04/29/25 03:34 Blood Pressure 185/85 H 04/29/25 03:34 Pulse Oximetry 99 04/29/25 03:34 Oxygen Delivery Method Room Air 04/29/25 03:34 Medications Administered Medications: Discontinued Medications Generic Name Dose Route Start Last Admin Trade Name Julio PRN Reason Stop Dose Admin Albuterol/Ipratropium 1 [facility] 04/29/25 04:13 04/29/25 04:21 Iprat-Albut 0.5-2.5 Mg/3 Ml [facility] 04/29/25 04:14 1 neb ONCE ONE Administration Azithromycin 500 mg 04/29/25 04:13 04/29/25 04:20 Azithromycin 250 Mg Tablet PO 04/29/25 04:14 500 mg ONCE ONE Administration Budesonide 0.5 mg 04/29/25 04:13 04/29/25 04:21 Budesonide 0.5 Mg/2ml [facility] 04/29/25 04:14 0.5 mg ONCE ONE Administration Prednisone 20 mg 04/29/25 04:13 04/29/25 04:20 Prednisone 10 Mg Tablet PO 04/29/25 04:14 20 mg ONCE ONE Administration Discharge Plan Discharge Clinical Impression: Asthma with acute exacerbation Patient Disposition: Home, Self-Care Condition: Stable Instructions: Asthma (DC) Additional Instructions: As we discussed, you seem to have a mild flare-up of your asthma. I recommend a course of prednisone, 20 mg once daily. You were given a dose of this here in the emergency department. It will take a couple of hours to fully kick in. I would like few to take this in the early evening/late afternoon once daily for the next 3 days. You may continue for up to a total of 5 days if things have not sufficiently improved. But if you are doing much better, it is okay to stop it after 3 days to better protect your kidneys. You will have leftover pills that you can save for a future flare. I have also started you on azithromycin, a common antibiotic that is used for respiratory infections. You will keep using your once daily preventative Keflex for your kidneys, you will need both to treat and prevent both infections. For tonight, keep using your albuterol nebulizer up to every 2 hours as needed. I have sent a refill of DuoNeb solution to your pharmacy that you may use instead if you find that it works better. I have also sent an albuterol inhaler for you to have around for travel and on the go because I do suspect you will continue to have flare-ups similar to this and want you to have access to the appropriate medication. If things are not improving within 3 days, please make a follow-up appointment with her primary care provider. Any severe symptoms would warrant ED evaluation. Activity Level: No Restrictions Discharge Diet: Regular Prescriptions: New albuterol sulfate 90 mcg/actuation HFA aerosol inhaler 2 puff inhalation Q4-6H PRN (Reason: shortness of breath or wheezing) Qty: 8.5 1RF ipratropium-albuterol 0.5 mg-3 mg(2.5 mg base)/3 mL solution for nebulization 3 ml inhalation Q6H PRNQty: 90 1RF No Action albuterol sulfate 2.5 mg /3 mL (0.083 %) solution for nebulization 2.5 mg continuous nebulization Q4H PRN (Reason: cough) levothyroxine [Synthroid] 88 mcg tablet 88 mcg PO DAILY losartan 25 mg tablet 50 mg PO DAILY aspirin [Adult Aspirin Regimen] 81 mg tablet,delayed release (DR/EC) 81 mg PO DAILY valsartan 40 mg tablet 40 mg PO DAILY metoprolol tartrate 25 mg tablet 12.5 mg PO Q12H dabigatran etexilate 75 mg capsule 75 mg PO BID Eliquis 2.5 mg tablet 2.5 mg PO BID Follow Up/Referrals: MEKA RUCKER DO [Primary Care Provider, Family Practice] Stand Alone Forms: [employer] Info Instructions
[2025-04-29 05:14] VITALS: BP 165/75; PULSE 70; RESP 18; TEMP 36.8; O2SAT 99
== END 2025-04-29 05:15 | disposition home or self-care (01) ==
PROVIDERS: Emergency Provider Family Medicine; PCP Student in an Organized Health Care Education/Training Program
DX: J45.901 Unspecified asthma with (acute) exacerbation (principal)
CPT/HCPCS: 99283; 99284; A9270; J7512; J7626

== ENCOUNTER 2025-08-03 07:44 | Outpatient (CLI) | payer MEDICARE, BC, SELFPAY | END 2025-08-03 07:45 | disposition home or self-care (01) | LOC: AMB 08-08 17:09 | PROVIDERS: PCP Student in an Organized Health Care Education/Training Program; Visit Provider Family Medicine | DX: M79.604 Pain in right leg (principal); M79.605 Pain in left leg | CPT/HCPCS: A0425; A0433 ==

== ENCOUNTER 2025-08-03 08:29 | Emergency (ER) | payer MEDICARE, BC, SELFPAY ==
--- OUTSIDE RECORDS SUMMARY | 2025-01-27 03:00 | XMS_ITS ---
Author Organization [facility] Address [address] [place] [address] Care Team Providers Care Splunk Consultant Name Role Phone Lars EASTON [place] Unavailable [phone] Eva Agarwal Unavailable Unavailab le Migration, Provider Unavailable Unavailable REASON FOR VISIT EMR-Breezy Encounters Encounter Location Date Provider Diagnosis [facility] [address] [place] [address] 01/27/2025 Provider Migration Plan Of Treatment Medication [...] Notes * Sun ALEMANOB:06/1940 (85 yo F)Acc No.[id number]:01/27/2025 Patient: Jolly TRUJILLOrimaria luz Tidwell :1940 A ge:84 Y S ex:Female Phone: Address:[address] [place] [address], [address] * Refills Stop amLODIPine Besylate Tablet, 10 [...] day Subjective: * Chief Complaints: * E MR-Breezy * * Date:
--- OUTSIDE RECORDS SUMMARY | 2025-01-28 03:00 | XMS_ITS ---
Author Organization [facility] Address [address] [place] [address] Care Team Providers Care Repairer Hairspring Name Role Phone Lars EASTON, [place] Unavailable [phone] Eva Agarwal Unavailable Unavailab le Migration, Provider Unavailable Unavailable REASON FOR VISIT EMR-Breezy Medications Medication SIG (Take, Route, Frequency, Duration) Notes Start Date End Date Status Synthroid 88 MCG Tablet Oral once a day 12/04/2022 Active Ondansetron 4 MG Tablet Disintegrating Oral 11/05/2022 Active Sotalol HCl 80 MG Tablet Take 0.5 tablet s (40 mg total) by mouth every 12 (twelve) hours Oral once a day 12/28/2022 Active Omeprazole 20 MG Tablet Ema yed Release Disintegrating Oral as needed 12/11/2019 Act paul Losartan Potassium 25 MG Tablet Oral once a day Active traMADol HCl 50 MG Tablet Oral 12/09/2022 Active Xarelto 20 MG Tablet Oral 12/21/2022 Active hydroCHLOROthiazide 12.5 MG Tablet Oral as needed 12/01/2019 Active Social History Social History Additional Details Category Social Info Options Details Migrated Social History Migrated Social History caffeine use, does not live alone, good exercise habits, no exercise habits, no physical disability, no tobacco use, not a current smoker, not using alcohol, not using drugs, smoking status : Never smoker Encounters Encounter Location Date Provider Diagnosis [facility] [address] [place] [address] 01/28/2025 Provider Migration Plan Of Treatment No Information Progress Notes * Sun ALEMANOB:06/1940 (85 yo F)Acc No.[id number]:01/28/2025 Patient: Sun TRUJILLO :1940 A ge:84 Y S ex:Female Phone: Address:[address] [place] [address], [address] Subjective: * Chief Complaints: * E MR-Breezy * Medical History: Advance healthcare directive on file, history of essential hypertension, living will on file, * Family History: M igrated Family History: Father- shot, and heart attack ~Mother- stomach Cancer. * Social History: M igrated Social History: M igrated Social History: caffeine use, d oes not live alone, g ood exercise habits, n o exercise habits, n o physical disability, n o tobacco use, n ot a current smoker, n ot using alcohol, n ot using drugs, s moking status : Never smoker. * Medications: T akinghydroCHLOROthiazide 12.5 MG Tablet Oral as needed Losartan Potassium 25 MG Tablet Oral once a day Omeprazole 20 MG Tablet Delayed Release Disintegrating Oral as needed Ondansetron 4 MG Tablet Disintegrating Oral Sotalol HCl 80 MG Tablet Take 0.5 tablets (40 mg total) by mouth every 12 (twelve) hours Oral once a day Synthroid 88 MCG Tablet Oral once a day traMADol HCl 50 MG Tablet Oral Xarelto 20 MG Tablet Oral Taking hydroCHLOROthiazide 12.5 MG Tablet Oral as needed Taking Losartan Potassium 25 MG Tablet Oral once a day Taking Omeprazole 20 MG Tablet Delayed Release Disintegrating Oral as needed Taking Ondansetron 4 MG Tablet Disintegrating Oral Taking Sotalol HCl 80 MG Tablet Take 0.5 tablets (40 mg total) by mouth every 12 (twelve) hours Oral once a day Taking Synthroid 88 MCG Tablet Oral once a day Taking traMADol HCl 50 MG Tablet Oral Taking Xarelto 20 MG Tablet Oral * * Date:
--- OUTSIDE RECORDS SUMMARY | 2025-07-19 13:00 | XMS_ITS | Encounter Summary ---
Author Organization [facility] Address [address] [place] [address] Phone Care Team Providers Care Regional Sales Manager Name Role Phone Joann Motta DO Primary Care Provider [phone] Reason for Visit * Reason Comments Follow-up Encounter Details Date Type Department Care Team (Late st Contact Info) Description 07/19/2025 2:00 PM CDT Office Visit [facility] [address] [place] [address] Zachariah Porter MD [address] [place] [address] Stage 3b chronic kidney disease (HCC) (Primary Dx); Hypertensive heart and chronic kidney disease without heart failure, with stage 1 through stage 4 chronic kidney disease, or unspecified chronic kidney disease Social History Tobacco Use Types Packs/Day Years Used Date Smoking Tobacco: Never Smokeless Tobacco: Never Alcohol Use Standard Drinks/Week Comments Never 0 [...] Sign Reading Time Taken Comments Blood Pressure 139/78 07/19/2025 1:46 PM CDT Pulse 62 07/19/2025 1:46 PM CDT Temperature - - Respiratory Rate - - Oxygen Saturation 99% 07/19/2025 1:46 PM CDT Inhaled Oxygen Concentration - - Weight 78.9 kg (174 lb) 07/19/2025 1:46 PM CDT Height 162.6 cm (5' 4) 07/19/2025 1:46 PM CDT Body Mass Index 29.87 07/19/2025 1:46 PM CDT documented in this encounter Patient Instructions * Patient Instructions* Jj Anderson - 07/19/2025 2:00 PM CDT It was very nice to see you again today. Keep up the good work. If you be seen sooner or have questions or concerns in the interim do not hesitate to contact me and I will do my best to help. Good luck with your upcoming procedure, you will do great. We will contact you to schedule your eight month follow up. Labs should be completed 1-2 weeks prior. Please contact our office at [phone] if any questions or concerns arise. Dr. Porter /Jj Morillo MA documented in this encounter Progress Notes * Zachariah Porter MD - 07/19/2025 2:00 PM CDT Images from the original note were not included. Patient: Sun Singh Date of : 1940 Chart: [id number] PCP: Joann Motta DO Date of Service: 07/19/2025 Chief Complaint: Sun Singh returns in follow-up for CKD Subjective: Patient returns in follow-up of the above. She was seen originally by me as a new patient in early February 2025. At that visit she was dealing with recurrent right sided obstructive uropathy, following closely with [facility] urology. In fact she had a right percutaneous nephrostomy tube placed at the [facility] at the end of January 2025. She was also dealing with a 13 pound weight gain that had accumulated over the previous 2-3 weeks prior to her visit, primarily with swelling in both lower extremities. We asked the patient to continue to follow this, hoping that the progressive improvement of her GFR would mobilize his volume prior to recommending diuretic. Finally at that time kidney function was stable with GFR in the 30s range or so. We recommended continuing losartan at that time as well as not recommending any changes with her antihypertensive regimen. Laboratory work April 2025: Creatinine 1.78 Laboratory work June 2025: Urinalysis: Benign Patient reports feeling well. No hospitalizations or illnesses. Did undergo exchange of her right sided PNT since seen last. No illnesses or hospitalizations since. She and her urologist did make thedecision to proceed with pyeloplasty surgery at the [facility] sometime in August 2025. Presents today with a granddaughter. Assessment & Plan Problem List Stage 3b chronic kidney disease (HCC) - Primary Overview Creatinine 0.9-1.1 from [id number]. Creatinine 1.25 in July 2023 Creatinine in [...] in the middle-high ones since February 2024. Current Assessment & Plan Stable. According to the blood work performed in April 2025. Continue to avoid nephrotoxins as able. Based on current situation, I would avoid RAAS inhibitors, MRA, and SGLT2 inhibitors in this patient. Plan to follow-up again in the summer 2025. Relevant Orders Basic Metabolic Panel Hypertensive heart and chronic kidney disease without heart failure, with stage 1 through stage 4 chronic kidney disease, or unspecified chronic kidney disease (Chronic) Overview Echocardiogram January 2024: EF 60-65% with aortic valve sclerosis present and mild AR. Normal plasma metanephrines, aldosterone 11, renin 39, and renal arterial Doppler study without evidence of renal artery stenosis, all performed at [facility] 2019. Current Assessment & Plan Stable. Well-managed overall. I would not treat any more aggressively, namely in this patient of greatly advanced age, higher than average risk for falls, frail physiology, etc. Recommend systolic blood pressure range between 120-155 in my opinion. Return in about 8 months (around 03/27/2026) for Recheck. Zachariah Porter MD [facility] The following portions of the patient's chart were reviewed in this encounter and updated as appropriate: Tobacco Allergies Meds Problems Med Hx Surg Hx Fam Hx Review of Systems Musculoskeletal: Positive for joint pain. All other systems reviewed and are negative. 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 stent removed Family History Problem Relation Age of Onset Cancer Mother Heart disease Father Heart disease Brother Cancer Brother No Known Problems Mother's Sister Heart disease Mother's Brother Heart disease Father's Brother No Known Problems Maternal Grandmother No Known Problems Maternal Grandfather Stroke Paternal Grandmother No Known Problems Paternal Grandfather Social History Tobacco Use Smoking status: Never Smokeless tobacco: Never Vaping Use Vaping status: Never Used Substance Use Topics Alcohol use: Never Drug use: Never Taking? Provider LT albuterol HFA (PROVENTIL HFA;VENTOLIN HFA) 108 (90 Base) MCG/ACT inhaler Gonzalez Alvarado MD INHALE 2 PUFFS BY MOUTH EVERY 4 TO 6 HOURS NEEDED FOR SHORTNESS OF BREATH OR WHEEZING dabigatran etexilate (PRADAXA) 75 MG capsule Gonzalez Alvarado MD Take 75 mg by mouth in the morning and 75 mg in the evening. Patient not taking: Reported on 07/19/2025 hydrocortisone 1 % cream Gonzalez Alvarado MD Apply 1 Application topically in the morning and 1 Application in the evening. ipratropium-albuterol (DUO-NEB) 0.5-2.5 mg/3 mL nebulizer solution Gonzalez Alvarado MD USE ONE VIAL IN NEBULIZER EVERY SIX HOURS NEEDED metoprolol tartrate 25 MG tablet Gonzalez Alvarado MD Take 12.5 mg by mouth in the morning and 12.5 mg in the evening. Patient not taking: Reported on 07/19/2025 oxyCODONE (ROXICODONE) 5 MG immediate release tablet Gonzalez Alvarado MD Take 5 mg by mouth every 30 minutes as needed Synthroid 88 MCG tablet Gonzalez Alvarado MD Take 88 mcg by mouth in the morning. Patient not taking: Allergies Allergen Reactions Dust Mite Extract Anaphylaxis and Other (see comments) Abdon Inhibitors Other (see comments) Amlodipine Swelling Apixaban Diarrhea Cat Dander Other (see comments) Hyoscyamine Rash Levofloxacin Rash Metoprolol GI intolerance, Nausea, Other (see comments), Palpitations and Swelling Other Reaction(s): Bradycardia Reflux, leg swelling Physical Exam BP 139/78 (BP Location: Right upper arm, Patient Position: Sitting, BP Cuff Size: Adult) Pulse 62 Ht 5' 4 (1.626 m) Wt 174 lb (78.9 kg) SpO2 99% BMI 29.87 kg/m?? Vitals reviewed. Constitutional: She is oriented to person, place, and time. Cardiovascular: Normal rate and regular rhythm. She exhibits no edema. Pulmonary/Chest: Effort normal and breath sounds normal. Musculoskeletal: Normal range of motion. Neurological: She is alert and oriented to person, place, and time. Skin: Skin is warm and dry. Psychiatric: She has a normal mood and affect. Her behavior is normal. Judgment normal. [facility] Lab Units 05/08/25 0707 04/18/25 1239 03/07/25 0752 03/06/25 1350 03/05/25 1435 06/12/24 0840 01/21/24 0959 12/27/23 0402 12/26/23 0205 12/25/23 0313 12/24/23 1119 SODIUM mmol/L 139 140 138 139 136 138 < > 137 135* 135* 137 POTASSIUM mmol/L 4.6 4.7 4.8 4.4 5.2 4.2 < > 4.1 3.7 3.9 4.7 CHLORIDE mmol/L 104 108* 107 106 104 104 < > 107 102 102 102 CO2 mmol/L 23 22 20* 20* 22 24 < > 22 21* 22 23 ANION GAP 12 10 11 13 10 10 < > 8 12 11 12 CALCIUM mg/dL 9.2 9.0 8.6* 9.6 8.8 9 < > 8.1* 8.4* 7.8* 8.9 ALK PHOS U/L -- -- -- -- -- -- -- 85 102 93 109* GLUCOSE mg/dL 84 110 87 105 92 102* < > 94 102* 93 121* ALBUMIN g/dL -- -- -- -- -- -- -- 2.9* 3.5 3.1* 3.8 BUN mg/dL 35* 27* 33* 31* 32* 36.3* < > 18 19 17 16 CREATININE mg/dL 1.78* 1.57* 1.82* 1.62* 1.58* 1.89* < > 1.46* 1.71* 1.75* 1.34* EGFR mL/min/BSA 28* 32* 27* 31* 32* 26* < > 35.6 29.4 28.6 39.4 < > = values in this interval not displayed. No lab exists for component: GLUCOSEUR, BILIRUBINUR, SPECGRAV, RBCUR, LEUKOCYTESUR, NITRITE [facility] Lab Units 05/08/25 0707 CYSTATIN C mg/L 2.32* I have performed a complete review of pertinent lab results. documented in this encounter Miscellaneous Notes * Assessment & Plan Note - Zachariah Porter MD - 07/19/2025 2:23 PM CDTAssociated Problem(s): Hypertensive heart and chronic kidney disease without heart failure, with stage 1 through stage 4 chronic kidney disease, or unspecified chronic kidney disease Stable. Well-managed overall. I would not treat any more aggressively, namely in this patient of greatly advanced age, higher than average risk for falls, frail physiology, etc. Recommend systolic blood pressure range between 120-155 in my opinion. * Assessment & Plan Note - Zachariah Porter MD - 07/17/2025 4:36 PM CDTAssociated Problem(s): Stage 3b chronic kidney disease (HCC) Stable. According to the blood work performed in April 2025. Continue to avoid nephrotoxins as able. Based on current situation, I would avoid RAAS inhibitors, MRA, and SGLT2 inhibitors in this patient. Plan to follow-up again in the summer 2025. documented in this encounter Plan of Treatment Scheduled Orders Name Type Priority Associated Diagnoses Orde r Schedule Basic Metabolic Panel Lab Routine Stage 3b chronic kidney disease (HCC) Expected: 03/27/2026 (Approximate), Expires: 08/19/2026 documented as of this encounter Visit Diagnoses Diagnosis Stage 3b chronic kidney disease (HCC)- Primary Hypertensive heart and chronic kidney disease without heart failure, with stage 1 through stage 4 chronic kidney disease, or unspecified chronic kidney disease documented in this encounter Care Teams Regional Sales Manager Relationship Specialty Start Date End Date Joann Motta DO [address] [place] [address] PCP - General Family Medicine 02/01/25 documented as of this encounter
[2025-08-03] VITALS (11 sets, daily range): BP systolic 180–193; BP diastolic 70–79; PULSE 75–82; RESP 12–22; TEMP 37.1; O2SAT 94–99; BMI 26.6
--- NOTE | 2025-08-03 09:07 | CRLHL7_ITS ---
For Patients: As a result of the Century Cures Act, medical imaging exams and procedure reports are released immediately into your electronic medical record. You may view this report before your referring provider. If you have questions, please contact your health care provider. Indication: Bilateral hip pain, [id number] Technique: Pelvis and left hip 3 views. Comparison: None. Findings: Bones: Diffuse osseous demineralization. Incomplete fracture along the left lateral femoral diaphysis. Fixation of the right nondisplaced femoral shaft fracture without significant sclerosis. Joint spaces: Mild osteoarthritis of the hips. Soft tissues: Unremarkable. Impression: Incomplete fracture along the left lateral femoral diaphysis, most commonly seen with bisphosphonate related stress fractures. Fixation of the proximal right femoral diaphyseal fracture with visualized fracture line. Dictated by Julia Mercado MD @ 08/03/2025 9:50:02 AM (Electronically Signed)
--- NOTE | 2025-08-03 09:10 | ED.GENADULT ---
HPI - General Adult General Chief complaint: Extremity Pain/Injury, Lower Stated complaint: weakness Time Seen by Provider: 08/03/25 08:30 Source: patient and family Mode of arrival: EMS Limitations: no limitations History of Present Illness HPI narrative: 85-year-old female presenting today bilateral feet pain. Patient states that around midnight she developed acute bilateral feet pain to the point where she could not walk. This pain has lasted all night into this morning. But it has subsided some. She states that now the left foot is more painful than the right and she also developed left hip pain. She denies falling, no trauma to the area. She denies any low back pain. She states that she felt nauseated sometime in the middle of the night, did not vomit in the nausea has since subsided. She denies any fevers or chills. She denies any confusion. She feels weak all over. She denies any focal neurologic deficits. No changes in her speech. Family came to check on her as she is currently living by herself, is in [place], and noted that she had a hard time even getting to the door. Therefore they called the ambulance to get her to the ER for evaluation. Patient has a history of paroxysmal atrial fibrillation and is usually anticoagulated with Eliquis but that was recently stopped secondary to right nephrostomy tube placement in the upcoming surgery. Patient received 100 mcg of fentanyl and 2 mg of morphine in the ambulance which she thought helped at that time but she feels that her pain is now returning. She states that she does not want any more pain medication at this time. Related Data Home Medications ?Medication ?Instructions ?Recorded ?Confirmed levothyroxine 88 mcg tablet 88 mcg PO DAILY 01/07/23 08/03/25 (Synthroid) losartan 25 mg tablet 50 mg PO DAILY 01/07/23 08/03/25 albuterol sulfate 2.5 mg/3 mL 2.5 mg continuous nebulization Q4H 01/14/23 04/29/25 (0.083 %) solution for nebulization PRN cough aspirin 81 mg tablet,delayed 81 mg PO DAILY 02/14/24 08/03/25 release (Adult Aspirin Regimen) apixaban 2.5 mg tablet (Eliquis) 2.5 mg PO BID 04/29/25 08/03/25 Held on 08/03/25. Instructions: Doctor's Order dabigatran etexilate 75 mg capsule 75 mg PO BID 04/29/25 04/29/25 metoprolol tartrate 25 mg tablet 12.5 mg PO Q12H 04/29/25 08/03/25 valsartan 40 mg tablet 40 mg PO DAILY 04/29/25 08/03/25 Held on 08/03/25. Instructions: Doctor's Order Previous Rx's ?Medication ?Instructions ?Recorded albuterol sulfate 90 mcg/actuation 2 puff inhalation Q4-6H PRN 04/29/25 aerosol inhaler shortness of breath or wheezing #8.5 grams ipratropium 0.5 mg-albuterol 3 mg 3 ml inhalation Q6H PRN #90 mL 04/29/25 (2.5 mg base)/3 mL nebulization soln Allergies Allergy/AdvReac Type Severity Reaction Status Date / Time WILLIAM Inhibitors Allergy Mild Hives Verified 08/03/25 08:44 hyoscyamine (From Levsin) Allergy Mild Hives Verified 08/03/25 08:44 apixaban (From Eliquis) AdvReac Intermediate Diarrhea Verified 08/03/25 08:44 lisinopril AdvReac Mild Cough Verified 08/03/25 08:44 metoprolol AdvReac Mild Cough Verified 08/03/25 08:44 Review of Systems Status of ROS: Reports: 10 or more systems reviewed and unremarkable except as noted in History and below [facility] Medical History Vitamin D deficiency ?E55.9 - Vitamin D deficiency, unspecified (ICD-10) Osteopenia ?M85.80 - Other specified disorders of bone density and structure, unspecified site (ICD-10) 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 - Migraine with aura, not intractable, without status migrainosus (ICD-10) Intestinal infection due to campylobacter ?A04.5 - Campylobacter enteritis (ICD-10) Hypothyroidism ?E03.9 - Hypothyroidism, unspecified (ICD-10) Hypertension ?I10 - Essential (primary) hypertension (ICD-10) Hyperlipidemia ?E78.5 - Hyperlipidemia, unspecified (ICD-10) Hiatal hernia ?K44.9 - Diaphragmatic hernia without obstruction or gangrene (ICD-10) Esophageal reflux ?K21.9 - Gastro-esophageal reflux disease without esophagitis (ICD-10) Edema ?R60.9 - Edema, unspecified (ICD-10) Duodenal ulcer, unspecified as acute or chronic, without hemorrhage or perforation ?K26.9 - Duodenal ulcer, unspecified as acute or chronic, without hemorrhage or perforation (ICD-10) Chest pain ?R07.9 - Chest pain, unspecified (ICD-10) Anticoagulation monitoring, INR range 2-3 ?Z79.01 - meterman (current) use of anticoagulants (ICD-10) Surgical History History of eye surgery ?Z98.890 - Other specified postprocedural states (ICD-10) History of lumbar discectomy ?Z98.890 - Other specified postprocedural states (ICD-10) History of cholecystectomy ?Z90.49 - Acquired absence of other specified parts of digestive tract (ICD-10) History of knee replacement ?Z96.659 - Presence of unspecified artificial knee joint (ICD-10) History of surgery on lower extremity ?Z98.890 - Other specified postprocedural states (ICD-10) History of surgery on lower extremity ?Z98.890 - Other specified postprocedural states (ICD-10) History of esophagogastroduodenoscopy (EGD) ?Z98.890 - Other specified postprocedural states (ICD-10) S/P epidural steroid injection ?Z92.241 - Personal history of systemic steroid therapy (ICD-10) History of colonoscopy ?Z98.890 - Other specified postprocedural states (ICD-10) History of cataract removal with insertion of prosthetic lens ?Z98.49 - Cataract extraction status, unspecified eye (ICD-10) ?Z96.1 - Presence of intraocular lens (ICD-10) History of breast augmentation ?Z98.82 - Breast implant status (ICD-10) History of appendectomy ?Z90.49 - Acquired absence of other specified parts of digestive tract (ICD-10) Social History Smoking Status: Never smoker Do you use any of these nicotine containing products: None Second hand tobacco smoke exposure: No How often do you have a drink containing alcohol: never How often do you have six or more drinks on one occasion: Never AUDIT-C Alcohol total score: 0 Non-prescribed substance use: denies use service: No Exam Narrative: Exam Narrative: Well-nourished well-developed patient in no acute distress. Alert and oriented x3. Answers questions appropriately. Mood and affect are appropriate. Thoughts are goal oriented and rational. No tangential or magical thinking noted. Patient speaks in full sentences without needing to catch her breath. Speech is not slurred or pressured. HEENT: Normocephalic atraumatic. Pupils are equally round reactive to light. Extraocular muscles are intact. Conjunctivae are moist without any icterus noted. Moist mucous membranes. Cardiovascular: Heart is regular rate and rhythm S1 and S2 are present without any murmurs. Lungs: Clear to auscultation bilaterally no wheezes rhonchi or rales are appreciated. Patient takes deep breaths without any discomfort. Abdomen: Soft and nontender nondistended with normal bowel sounds. Extremities: Bilateral lower extremities shows swelling around both ankles , minimal on the right with the left ankle clearly swollen. Range of motion of the right ankle appears normal, limited on the left. She has normal DP and PT pulses. The skin is well perfused without erythema. She has a scar that runs the length of the left leg secondary to an accident as a child. Patient cannot lift either leg off the bed secondary to pain. She does roll over and her back examination reveals scarring but no evidence of acute infection or acute abnormality. She has no tenderness over the thoracic or lumbar spine. Knees appear unremarkable. Skin: Well perfused without any obvious rashes. Const: Vital Signs, click to edit/add: Vital Signs - 24 hr 08/03/25 08:39 08/03/25 09:05 08/03/25 09:06 Temperature 98.7 F Pulse Rate Pulse Rate [Pulse Oximeter] 75 Respiratory Rate 18 20 Blood Pressure 184/72 H Blood Pressure [Le ft Upper Arm] 191/70 H Pulse Oximetry 97 Oxygen Delivery Me thod Room Air 08/03/25 09:40 08/03/25 09:45 08/03/25 10:00 Temperature Pulse Rate 75 76 Pulse Rate [Pulse Oximeter] Respiratory Rate 22 17 Blood Pressure Blood Pressure [Le ft Upper Arm] Pulse Oximetry 99 97 Oxygen Delivery Me thod 08/03/25 10:03 08/03/25 10:15 08/03/25 10:30 Temperature Pulse Rate 82 78 78 Pulse Rate [Pulse Oximeter] Respiratory Rate 12 15 Blood Pressure 180/70 H Blood Pressure [Le ft Upper Arm] Pulse Oximetry 97 98 96 Oxygen Delivery Me thod 08/03/25 10:32 Temperature Pulse Rate 81 Pulse Rate [Pulse Oximeter] Respiratory Rate 19 Blood Pressure 193/79 H Blood Pressure [Le ft Upper Arm] Pulse Oximetry 94 Oxygen Delivery Me thod Course Course ED Course: Proceeded with x-rays of the hip which show incomplete fracture along the left lateral femoral diaphysis. I discussed this with the patient who states that she has been told she has a fracture of her hip in the past and that it is ?not a real fracture. We discussed that she can move that hip today and she does state that the pain she is having and the inability to move it is certainly new. Because of this we will proceed with a CT of the hip as well as tried in her records from [place], where she had previous imaging before. CT scan shows a chronic deformity of the lateral cortical margin of the proximal femoral diaphysis. I reviewed her clinic notes from last November where she had CT and MRI of the area. While I do not have the CT or MRI report I do have a clinic note that state that the MRI reveals an old healed fracture deformity of the femoral shaft and a possible small superimposed mild stress injury. From this note, it sounds like the patient has been having pain in this hip for quite some time. Given the pain in the foot and ankle as well we did proceed with an ultrasound which did not reveal a DVT. I discussed these findings with the patient and her daughter. Patient states that she has been prescribed narcotic pain medications in the past to deal with her pain. She has not taken them. She states that she still has a bottle at home. We discussed treating her pain when she has it. We discussed reasons to return to the ER. Patient and her daughter were in agreement with everything discussed and had no other questions. Patient is able to move legs now that pain medications are on board. Vital Signs Vital signs: Initial Vital Signs Temperature 98.7 F 08/03/25 08:39 Temperature Source Temporal Artery Scan 08/03/25 08:39 Pulse Rate 75 08/03/25 08:39 Respiratory Rate 18 08/03/25 08:39 Blood Pressure 191/70 H 08/03/25 08:39 Blood Pressure Mean 110 H 08/03/25 08:39 Blood Pressure Position Supine 08/03/25 08:39 Pulse Oximetry 97 08/03/25 08:39 Oxygen Delivery Method Room Air 08/03/25 08:39 Vital Signs Temperature 98.7 F 08/03/25 08:39 Pulse Rate 75 08/03/25 08:39 Respiratory Rate 18 08/03/25 08:39 Blood Pressure 191/70 H 08/03/25 08:39 Pulse Oximetry 97 08/03/25 08:39 Oxygen Delivery Method Room Air 08/03/25 08:39 Temperature 98.7 F 08/03/25 08:39 Pulse Rate 81 08/03/25 10:32 Respiratory Rate 19 08/03/25 10:32 Blood Pressure 193/79 H 08/03/25 10:32 Pulse Oximetry 94 08/03/25 10:32 Oxygen Delivery Method Room Air 08/03/25 08:39 Medications Administered Medications: Discontinued Medications Generic Name Dose Route Start Last Admin Trade Name Freq PRN Reason Stop Dose Admin Hydromorphone HCl 0.5 mg 08/03/25 09:55 08/03/25 10:00 Hydromorphone 0.5 Mg/0.5 Ml Inj IVP 08/03/25 09:56 0.5 mg ONCE ONE Administration Medical Decision Making MDM Narrative Medical decision making narrative: 85-year-old female with chronic lower extremity pain, presenting with an exacerbation. Patient has pain medications at home which she has not taken. We discussed ice and heat. We discussed continuing movement as she has been doing. We discussed reasons for follow-up including systemic symptoms, weakness or lethargy. Lab Data Labs: Lab Results 08/03/25 08/03/25 Range/Units 09:15 09:55 WBC 9.39 (4.50-11.00) K/uL RBC 3.47 L (4.00-5.20) m/uL Hgb 10.1 L (12.0-16.0) gm/dL Hct 31.9 L (33.0-51.0) % MCV 92 (80-100) fL MCH 29 (26-34) pg MCHC 32 (32-36) gm/dL RDW Coeff of Albert 14.8 (11.5-15.5) % Plt Count 335 (140-440) K/uL Neut % (Auto) 59.1 (42.0-72.0) % Lymph % (Auto) 25.0 (20-44) % Cecil % (Auto) 14.4 H (0.0-11.0) % Eos % (Auto) 1.0 (0.0-7.0) % Baso % (Auto) 0.4 (0.0-3.0) % Neut # (Auto) 5.55 (1.7-7.0) K/uL Lymph # (Auto) 2.35 (0.90-2.90) K/uL Cecil # (Auto) 1.40 H (0.00-0.90) K/UL Eos # (Auto) 0.09 (0.00-0.50) K/uL Baso # (Auto) 0.04 (0.00-0.30) K/uL Abs Immat Gran (auto) 0.01 (0.00-0.30) K/uL Imm/Tot Granulo (auto) 0.1 % Sodium 133 L (135-149) mmol/L Potassium 4.6 (3.6-5.1) mmol/L Chloride 101 (96-114) mmol/L Carbon Dioxide 22 (20-32) mmol/L Anion Gap 10 (7-15) mEq/L BUN 29 (7-30) mg/dL Creatinine 1.4 (0.5-1.5) mg/dL Estimated Creat Clear 28.57 Estimated GFR 37 ml/min Glucose 103 (60-115) mg/dL Lactate 0.8 (0.5-1.9) mmol/L Calcium 8.6 (8.4-10.6) mg/dL Magnesium 2.0 (1.5-2.6) mg/dL Total Bilirubin 0.9 (0.1-1.5) mg/dL Direct Bilirubin 0.3 (0.0-0.5) mg/dL AST 22 (12-35) U/L ALT 10 (4-35) U/L Alkaline Phosphatase 101 (40-150) U/L Troponin I < 0.01 (0.01-0.04) ng/mL C-Reactive Protein 1.3 H (0.5-1.0) mg/dL NT-Pro-B Natriuret Pep 2100 H (See Note) pg/mL Total Protein 7.2 (6.0-8.3) g/dL Albumin 3.7 (3.3-5.0) g/dL Procalcitonin 0.05 (<0.50) ng/mL Urine Color Yellow (Yellow) Urine Appearance Clear (Clear) Urine pH 6.5 (5.0-8.5) Ur Specific [place] 1.010 (1.000-1.030) Urine Protein Negative (Negative) Urine Glucose (UA) Negative (Negative) Urine Ketones Negative (Negative) Urine Blood Trace-intact A (Negative) Urine Nitrite Negative (Negative) Urine Bilirubin Negative (Negative) Urine Urobilinogen 0.2 (0.2-1.0) Ur Leukocyte Esterase Negative (Negative) Urine RBC 0-2 (0-2) Urine WBC 0-2 (0-5) Ur Squamous Epith Cells Few (None-Few) Urine Bacteria Many A (None) Imaging Data CT- Other: Attestation: I have reviewed the pertinent imaging results. Radiologist's impression: TECHNICAL: Non-contrast CT of the pelvis with axial images. Sagittal oblique and coronal oblique reformatted images of the left hip created. FINDINGS: LEFT HIP: Chronic deformity in the lateral cortical margin of the proximal femoral diaphysis. There is a subtle linear area of decreased density with adjacent chronic osseous remodeling and beaking. Findings consistent with a chronic fracture deformity. The density of the linear component is suggestive of fracture healing possibly with a fibrous component although the density is less than the adjacent cortex. This region was not identified on the CT slices from the prior examination, however this region was visualized on the tubing mill setter in appears visible dating back to 2023. If there are clinical symptoms, further assessment could be performed with MRI to assess for any acute components or possibly a bone scan to assess for any active bony remodeling. Chronic bowing and deformity of the proximal femoral diaphysis most prominent distal to the chronic fracture. Moderate to advanced narrowing of the left hip joint space with hypertrophic change and subchondral cystic change. Chondrocalcinosis. No hip joint effusion. OSSEOUS STRUCTURES: Osteopenia. Postoperative changes in the proximal right femur. No evidence for chronic avascular necrosis. OTHER JOINT SPACES: Right Hip: Narrowing, hypertrophic change and subchondral cystic change. SI Joints: Moderate to advanced degenerative changes, left greater than right. No ankylosis. Lumbar Spine: Degenerative changes lower lumbar spine. MUSCLES AND TENDONS: No intramuscular mass or hematoma. No muscle atrophy. No retracted tendon tear. SOFT TISSUES: No subcutaneous edema, fluid collection or hematoma. INTRAPELVIC CONTENTS: No free fluid or hematoma. IMPRESSION: 1. Chronic deformity of the lateral cortical margin of the proximal femoral diaphysis corresponds with the radiographic finding. Findings appear visible on the 2023 CT tubing mill setter image. If there are clinical symptoms, further evaluation could be performed with an MRI or bone scan to assess for active components. 2. Chronic fracture deformity of the proximal left femur distal to the lateral cortical abnormality. 3. Advanced degenerative changes in the left hip. 4. Postoperative changes in the right femur. 5. Degenerative changes in the right hip, SI joints and lumbar spine. X-ray hip: Attestation: I have reviewed the pertinent imaging results. Radiologist's impression: Technique: Pelvis and left hip 3 views. Comparison: None. Findings: Bones: Diffuse osseous demineralization. Incomplete fracture along the left lateral femoral diaphysis. Fixation of the right nondisplaced femoral shaft fracture without significant sclerosis. Joint spaces: Mild osteoarthritis of the hips. Soft tissues: Unremarkable. Impression: Incomplete fracture along the left lateral femoral diaphysis, most commonly seen with bisphosphonate related stress fractures. Fixation of the proximal right femoral diaphyseal fracture with visualized fracture line. Venous US: Attestation: I have reviewed the pertinent imaging results. Radiologist's impression: TECHNIQUE: Venous duplex ultrasound of the left lower extremity utilizing compression with farris-scale, color Doppler, and spectral Doppler imaging. COMPARISON: None FINDINGS: There is no sonographic evidence of deep vein thrombosis in the left common femoral, deep femoral, superficial femoral, popliteal, posterior tibial, peroneal, or contralateral common femoral veins. There is no visualized superficial vein thrombosis. The soft tissues are unremarkable. IMPRESSION: No deep vein thrombosis in the left lower extremity. Discharge Plan Discharge Clinical Impression: Lower extremity pain Patient Disposition: Home, Self-Care Condition: Stable Additional Instructions: Okay to take pain medications as needed. Prescriptions: No Action albuterol sulfate 2.5 mg /3 mL (0.083 %) solution for nebulization 2.5 mg continuous nebulization Q4H PRN (Reason: cough) levothyroxine [Synthroid] 88 mcg tablet 88 mcg PO DAILY losartan 25 mg tablet 50 mg PO DAILY aspirin [Adult Aspirin Regimen] 81 mg tablet,delayed release (DR/EC) 81 mg PO DAILY valsartan 40 mg tablet 40 mg PO DAILY metoprolol tartrate 25 mg tablet 12.5 mg PO Q12H dabigatran etexilate 75 mg capsule 75 mg PO BID Eliquis 2.5 mg tablet 2.5 mg PO BID albuterol sulfate 90 mcg/actuation HFA aerosol inhaler 2 puff inhalation Q4-6H PRN (Reason: shortness of breath or wheezing) Qty: 8.5 1RF ipratropium-albuterol 0.5 mg-3 mg(2.5 mg base)/3 mL solution for nebulization 3 ml inhalation Q6H PRNQty: 90 1RF Follow Up/Referrals: MEKA RUCKER DO [Primary Care Provider, Family Practice] Stand Alone Forms: [employer] [place] Info Instructions
--- OUTSIDE RECORDS SUMMARY | 2025-08-03 09:21 | XMS_ITS | Clinical Summary ---
Author Organization [facility] Address [address] [place] [address] Phone Care Team Providers Care Protein Scientist Name Role Phone Joann Motta DO Primary Care Provider [phone] Allergies Active Allergy Reactions Criticality Noted Date [...] 88 mcg by mouth in the morning. 3 Active dabigatran etexilate (PRADAXA) 75 MG capsule Take 75 mg by mouth in the morning and 75 mg in the evening. 5 Active metoprolol tartrate 25 MG tablet Take 12.5 mg by mouth in the morning and 12.5 mg in the evening. 5 Active oxyCODONE (ROXICODONE) 5 MG immediate release tablet Take 5 mg by mouth every 30 minutes as needed 5 Active albuterol HFA (PROVENTIL HFA;VENTOLIN HFA) 108 (90 Base) MCG/ACT inhaler INHALE 2 PUFFS BY MOUTH EVERY 4 TO 6 HOURS NEEDED FOR SHORTNESS OF BREATH OR WHEEZING Active hydrocortisone 1 % cream Apply 1 Application topically in the morning and 1 Application in the evening. 5 Active ipratropium-al buterol (DUO-NEB) 0.5-2.5 mg/3 mL nebulizer solution USE ONE VIAL IN NEBULIZER EVERY SIX HOURS NEEDED Active losartan (COZAAR) 50 MG tablet Take 50 mg by mouth 1 (one) time each day 07/19/20 25 Discontin ued(Med List Maintenan ce) Active Problems Problem Noted Date Diagnosed Date Paroxysmal atrial fibrillation 03/08/2025 Assessment & Plan (03/08/2025 3:43 PM CDT): Stable. Follows with [facility]. Sinus rhythm on examination today. Stage 3b chronic kidney disease 03/05/2025 Overview (03/07/2025): Creatinine 0.9-1.1 from 2947-2779. Creatinine 1.25 in July 2023 Creatinine in [...] ones since February 2024. Assessment & Plan (07/19/2025 2:23 PM CDT): Stable. According to the blood work performed in April 2025. Continue to avoid nephrotoxins as able. Based on current situation, I would avoid RAAS inhibitors, MRA, and SGLT2 inhibitors in this patient. Plan to follow-up again in the summer 2025. Assessment & Plan (03/08/2025 3:46 PM CDT): [...] 2025 prior to her planned travel for [place] in July for 6 months to follow. [...] of renal artery stenosis, all performed at [facility] 2019. Assessment & Plan (07/19/2025 2:23 PM CDT): Stable. Well-managed overall. I would not treat any more aggressively, namely in this patient of greatly advanced age, higher than average risk for falls, frail physiology, etc. Recommend systolic blood pressure range between 120-155 in my opinion. Assessment & Plan (03/08/2025 3:45 PM CDT): [...] Encounters Date Type Department Care Team Description 07/19/2025 2:00 PM CDT Office Visit [facility] [address] [place] [address] Zachariah Porter MD Stage 3b chronic kidney disease (HCC) (Primary Dx); Hypertensive heart and chronic kidney disease without heart failure, with stage 1 through stage 4 chronic kidney disease, or unspecified chronic kidney disease 05/24/2025 Telephone [facility] [address] [place] [address] Thalia Tang from Last 3 Months Family History Medical [...] Mass Index 29.87 07/19/2025 1:46 PM CDT Plan of Treatment Health Maintenance Due Date Last Done Comments Pneumococcal Vaccine: 50+ Years (1 of 2 - PCV) 959 Hepatitis B Vaccine (1 of 3 - Risk 3-dose series) 03/27 Influenza Vaccine (#1) 2025 Insurance [employer]BS [place] Medicare Care Teams Protein Scientist Relationship Specialty Start Date End Date Joann [place] [address] PCP - General Family Medicine 02/01/25
--- OUTSIDE RECORDS SUMMARY | 2025-08-03 09:21 | XMS_ITS | Encounter Summary ---
Author Organization [facility] Address [address] [place] [address] Care Team Providers Care Creative Project Manager Name Role Phone Elsewhere, Pcp Primary Care Provider Unavailabl e Encounter Details Date Type Department Care Team ([facility] st Contact Info) Description 07/04/2025 Orders Only Department of Urology in [place], [place] [address] [place] [address] Maddie Goff, R.N. [address] [place] [address] Social History Tobacco Use Types Packs/Day Years Used Date Smoking Tobacco: Never Smokeless Tobacco: Never Alcohol Use Standard Drinks/Week Comments Not Currently 0 (1 standard drink = 0.6 oz pur e alcohol) [facility] Utilities Answer Date Recorded In the past 12 months has e [employer], gas, oil, or water [employer] threatened to shut off services in your [...] your living situation today? I have a [facility] place to live 03/06/2025 Education Answer Date Recorded What is the highest level of school you have completed or the highest degree you have received? Associate degree: occupational, technical, or vocational program 05/27/2020 Comments No Sex and Gender Information Value Date Recorded Sex Assigned at Female 02/19/2025 10:16 AM CDT Legal Sex Female 2:16 PM SOFTWARE PRODUCT MANAGER Gender Identity Female 02/19/2025 10:16 AM CDT Sexual Orientation Straight 02/19/2025 10 :16 AM CDT documented as of this encounter Plan of Treatment Upcoming Encounters Date Type Department Care Team (Late st Contact Info) Description 08/27/2025 1:15 PM SOFTWARE PRODUCT MANAGER Clinical Communication Virtual Review in [place], [place] [address] [place] [address] 08/30/2025 9:00 AM SOFTWARE PRODUCT MANAGER Appointment Department of Laboratory Medicine and Pathology, [place], [place] [address] [place] [phone] Vicki Rubio M.D., M.S. [address] [place] [phone] 08/30/2025 9:10 AM SOFTWARE PRODUCT MANAGER Appointment Department of Laboratory Medicine and Pathology, [facility] in [place], [place] [address] [place] [phone] Vicki Rubio M.D., M.S. [address] [place] [phone] 08/30/2025 10:45 AM SOFTWARE PRODUCT MANAGER Appointment Department of Radiology, [facility], in [place], [place] [address] [place] [address] Vicki Rubio M.D., M.S. [address] [place] [phone] 08/30/2025 2:30 PM SOFTWARE PRODUCT MANAGER Comprehensive Visit Preoperative Evaluation Center in [place], [place] [address] [place] [address] Vicki Rubio M.D., M.S. [address] [place] [phone] 09/11/2025 11:30 AM SOFTWARE PRODUCT MANAGER Office Visit Department of Urology in [place], [place] [address] [place] [address] Rupert Loving M.D. [address] [place] [phone] 09/13/2025 7:45 AM SOFTWARE PRODUCT MANAGER Hospital Encounter [facility] 01 4 AM ADMIT [address] [place] [phone] Rupert Loving M.D. [address] [place] [phone] 09/13/2025 7:45 AM SOFTWARE PRODUCT MANAGER - 09/13/2025 2:34 PM SOFTWARE PRODUCT MANAGER Surgery [facility]ST [facility] MAIN OR [address] [place] [address] Rupert Loving M.D. [address] [place] [phone] URETEROSCOPY Scheduled Procedures Name Priority Associated Diagnoses Date/Ti dc URETEROSCOPY 09/13/2025 7:45 AM SOFTWARE PRODUCT MANAGER ROBOTIC-ASSISTED PYELOPLASTY 09/13/2025 7:45 AM SOFTWARE PRODUCT MANAGER documented as of this encounter Visit Diagnoses Not on filedocumented in this encounter Care Teams Creative Project Manager Relationship Specialty Start Date End Date Elsewhere, Pcp PCP - General Internal Medicine 04/18/25 documented as of this encounter
--- OUTSIDE RECORDS SUMMARY | 2025-08-03 09:21 | XMS_ITS | Encounter Summary ---
Author Organization [facility] Address [address] [place] [address] Care Team Providers Care Machine Set Up Operator Name Role Phone Elsewhere, Pcp Primary Care Provider Unavailabl e Reason for Referral * Outpatient (Routine) - Authorized Specialty Diagnoses / Procedures Referred By Kayla t Referred To Contact Radiology Diagnoses Hydronephrosis Procedures IR Nephrostomy Tube Exchange Right Vicki Rubio M.D., M.S. [address] [place] [phone] Phone: tel: fax: [facility] Referral ID Status Reason Start Date Expiration Date V isits Requested Visits Authorized [id number] Authorized 07/23/2025 10/23/2026 1 1 Encounter Details Date Type Department Care Team (Late st Contact Info) Description 07/23/2025 Orders Only Department of Urology in [place], [place] [address] [place] [phone] Madiha Loza RFeiNFei Hydronephrosis (Primary Dx) Social History Tobacco Use Types Packs/Day Years Used Date Smoking Tobacco: Never Smokeless Tobacco: Never Alcohol Use Standard Drinks/Week Comments Not Currently 0 (1 standard drink = 0.6 oz pur e alcohol) [facility] Utilities Answer Date Recorded In the past 12 months has e electric, gas, oil, or water company threatened to shut off services in your [...] your living situation today? I have a [facility] place to live 03/06/2025 Education Answer Date Recorded What is the highest level of school you have completed or the highest degree you have received? Associate degree: occupational, technical, or vocational program 05/27/2020 Comments No Sex and Gender Information Value Date Recorded Sex Assigned at Female 02/19/2025 10:16 AM CDT Legal Sex Female 2:16 PM DRY CELL SEALER Gender Identity Female 02/19/2025 10:16 AM CDT Sexual Orientation Straight 02/19/2025 10 :16 AM CDT documented as of this encounter Plan of Treatment Upcoming Encounters Date Type Department Care Team (Late st Contact Info) Description 08/27/2025 1:15 PM DRY CELL SEALER Clinical Communication Virtual Review in [place], [place] [address] [place] [address] 08/30/2025 9:00 AM DRY CELL SEALER Appointment Department of Laboratory Medicine and Pathology, [facility] in [place], [place] [address] [place] [phone] Vicki Rubio M.D., M.S. [address] [place] [phone] 08/30/2025 9:10 AM DRY CELL SEALER Appointment Department of Laboratory Medicine and Pathology, [facility] in [place], [place] [address] [place] [phone] Vicki Rubio M.D., M.S. [address] [place] [phone] 08/30/2025 10:45 AM DRY CELL SEALER Appointment Department of Radiology, [facility] in [place], [place] [address] [place] [phone] Vicki Rubio M.D., M.S. [address] [place] [phone] 08/30/2025 2:30 PM DRY CELL SEALER Comprehensive Visit Preoperative Evaluation Center in [place], [place] [address] [place] [phone] Vicki Rubio M.D., M.S. [address] [place] [phone] 09/11/2025 11:30 AM DRY CELL SEALER Office Visit Department of Urology in [place], [place] [address] [place] [phone] Rupert Loving M.D. [address] [place] [phone] 09/13/2025 7:45 AM DRY CELL SEALER Hospital Encounter [facility] 01 4 AM ADMIT [address] [place] [phone] Rupert Loving M.D. [address] [place] [address] 09/13/2025 7:45 AM DRY CELL SEALER - 09/13/2025 2:34 PM DRY CELL SEALER Surgery [facility] MAIN OR [address] [place] [address] Rupert Loving M.D. 200 [place] [address] URETEROSCOPY Scheduled Orders Name Type Priority Associated Diagnoses Order Schedule IR Nephrostomy Tube Exchange Right Imaging RAD - Routine (most inpatients and all outpatients) Hydronephrosis Expected: 07/23/2025, Expires: 10/23/2026 Scheduled Procedures Name Priority Associated Diagnoses Date/Ti me URETEROSCOPY 09/13/2025 7:45 AM DRY CELL SEALER ROBOTIC-ASSISTED PYELOPLASTY 09/13/2025 7:45 AM DRY CELL SEALER documented as of this encounter Goals Goal Patient Goal Type Associated Problems Recent Progress Patient-Stated? Author Autogenera kelley Goal Care Plan Autogenerated Problem No [place], Maryanne Coffman documented as of this encounter Visit Diagnoses Diagnosis Hydronephrosis- Primary documented in this encounter Additional Health Concerns Active Problems Noted Date Diagnosed Date Autogenerated Problem 07/23/2025 documented as of this encounter Care Teams Machine Set Up Operator Relationship Specialty Start Date End Date Elsewhere, Pcp PCP - General Internal Medicine 04/18/25 documented as of this encounter
--- OUTSIDE RECORDS SUMMARY | 2025-08-03 09:21 | XMS_ITS | Encounter Summary ---
Author Organization [facility] Address [address] [place] [address] Phone Care Team Providers Care Laborer Pie Bakery Name Role Phone Joann Motta DO Primary Care Provider [phone] Encounter Details Date Type Department Care Team (Late st Contact Info) Description 05/24/2025 Telephone [facility] [address] [place] [address] Thalia Tang [address] [place] [address] Social History Tobacco Use Types Packs/Day Years [...] on file documented as of this encounter Miscellaneous Notes * Telephone Encounter - Angelina Tangine - 05/24/2025 11:11 AM CDT Daughter Radha calling, pt. was seen at [place], they want to do either a pyeloplasty or an endoscopic repair. Pt. would like to discuss this with you. Would appreciate callback to [phone] documented in this encounter Plan of Treatment Not on file documented as of this encounter Visit Diagnoses Not on filedocumented in this encounter Care Teams Laborer Pie Bakery Relationship Specialty Start Date End Date Joann Motta DO [address] [place] [address] PCP - General Family Medicine 02/01/25 documented as of this encounter
--- OUTSIDE RECORDS SUMMARY | 2025-08-03 09:21 | XMS_ITS | Patient Health Record ---
Author Organization [facility] Address [address] [place] [address] Care Team Providers Care Doctor Of Dental Surgery Name Role Phone Lars EASTON, [place] Unavailable [phone] Eva Agarwal Unavailable Unavailab le Migration, Provider [...] W/U Status Risk Notes Problem Essential hypertension (04005611) Essential (primary) hypertension (I10) 0 Active confirmed Problem Paroxysmal atrial fibrillation (131088155) Paroxysmal atrial fibrillation (I48.0) 3 Active confirmed Encounters Encounter Location Date Provider Diagnosis [facility] [address] [place] [address] 01/27/2025 Provider Migration [facility] [address] [place] [address] 01/28/2025 Provider Migration Plan Of Treatment No Information Insurance Providers Payer Name Payer Address Payer Phone Subscriber Number Group Number Insured Name Patient Relationship to Insured Coverage Start Date Coverage End Date Medicare Part B [address] [address] [place] [address] [phone] [id number] Sun Singh Self - patient is the insured [facility] [address] [place] [address] [phone] [id number] Sun Singh Self - patient is the insured
--- OUTSIDE RECORDS SUMMARY | 2025-08-03 09:21 | XMS_ITS | Encounter Summary ---
Author Organization [facility] Address [address] [place] [address] Care Team Providers Care Radiation Protection Technician Name Role Phone Elsewhere, Pcp Primary Care Provider Unavailabl e Reason for Referral * Outpatient (Routine) - Authorized Specialty Diagnoses / Procedures Referred By Contac t Referred To Contact Anesthesiology Diagnoses Hydronephrosis Vicki Rubio M.D., M.S. [address] [place] [phone] Phone: tel: fax: [facility] Referral ID Status Reason Start Date Expiration Date V isits Requested Visits Authorized [id number] Authorized 07/23/2025 01/22/2027 1 1 Encounter Details Date Type Department Care Team (Late st Contact Info) Description 07/23/2025 Orders Only Department of Urology in [place], [place] [address] [place] [phone] Madiha Loza R.N. Hydronephrosis (Primary Dx) Social History Tobacco Use Types Packs/Day Years Used Date Smoking Tobacco: Never Smokeless Tobacco: Never Alcohol Use Standard Drinks/Week Comments Not Currently 0 (1 standard drink = 0.6 oz pur e alcohol) [facility] Utilities Answer Date Recorded In the [...] your living situation today? I have a [facility] place to live 03/06/2025 Education Answer Date Recorded What is the highest level of school you have completed or the highest degree you have received? Associate degree: occupational, technical, or vocational program 05/27/2020 Comments No Sex and Gender Information Value Date Recorded Sex Assigned at Female 02/19/2025 10:16 AM CDT Legal Sex Female 2:16 PM STRIP MILL OPERATOR Gender Identity Female 02/19/2025 10:16 AM CDT Sexual Orientation Straight 02/19/2025 10 :16 AM CDT documented as of this encounter Plan of Treatment Upcoming Encounters Date Type Department Care Team (Late st Contact Info) Description 08/27/2025 1:15 PM STRIP MILL OPERATOR Clinical Communication Virtual Review in [place], [place] [address] [place] [address] 08/30/2025 9:00 AM STRIP MILL OPERATOR Appointment Department of Laboratory Medicine and Pathology, [facility] in [place], [place] [address] [place] [address] Vicki Rubio M.D., M.S. [address] [place] [phone] 08/30/2025 9:10 AM STRIP MILL OPERATOR Appointment Department of Laboratory Medicine and Pathology, [facility] in [place], [place] [address] [place] [address] Vicki Rubio M.D., M.S. [address] [place] [phone] 08/30/2025 10:45 AM STRIP MILL OPERATOR Appointment Department of Radiology, [facility] in [place], [place] [address] [place] [address] Vicki Rubio M.D., M.S. [address] [place] [phone] 08/30/2025 2:30 PM STRIP MILL OPERATOR Comprehensive Visit Preoperative Evaluation Center in [place], [place] [address] [place] [phone] Vicki Rubio M.D., M.S. [address] [place] [phone] 09/11/2025 11:30 AM STRIP MILL OPERATOR Office Visit Department of Urology in [place], [place] [address] [place] [phone] Rupert Loving M.D. [address] [place] [phone] 09/13/2025 7:45 AM STRIP MILL OPERATOR Hospital Encounter [facility] 01 4 AM ADMIT [address] [place] [phone] Rupert Loving M.D. [address] [place] [address] 09/13/2025 7:45 AM STRIP MILL OPERATOR - 09/13/2025 2:34 PM STRIP MILL OPERATOR Surgery [facility] MAIN OR [address] [place] [address] Rupert Loving M.D. 200 [place] [address] URETEROSCOPY Scheduled Procedures Name Priority Associated Diagnoses Date/Ti me URETEROSCOPY 09/13/2025 7:45 AM STRIP MILL OPERATOR ROBOTIC-ASSISTED PYELOPLASTY 09/13/2025 7:45 AM STRIP MILL OPERATOR Scheduled Referrals Name Type Priority Associated Diagnoses Order Schedule Preoperative Evaluation DIONY consult (clinic) Outpatient Referral Routine Hydronephrosis Expected: 07/23/2025, Expires: 10/23/2026 documented as of this encounter Goals Goal Patient Goal Type Associated Problems Recent Progress Patient-Stated? Author Autogenera kelley Goal Care Plan Autogenerated Problem Maryanne Wisdom documented as of this encounter Visit Diagnoses Diagnosis Hydronephrosis- Primary documented in this encounter Additional Health Concerns Active Problems Noted Date Diagnosed Date Autogenerated Problem 07/23/2025 documented as of this encounter Care Teams Radiation Protection Technician Relationship Specialty Start Date End Date Elsewhere, Pcp PCP - General Internal Medicine 04/18/25 documented as of this encounter
--- OUTSIDE RECORDS SUMMARY | 2025-08-03 09:21 | XMS_ITS | Clinical Summary ---
Author Organization [facility] Address [address] [place] [address] Care Team Providers Care Prosthetic Aides Teacher Name Role Phone Elsewhere, Pcp Primary Care Provider Unavailabl e Source Comments Patient records contain information from all sites at [facility]. For routine questions regarding patient records, call [phone] during business hours, M-F 8:00 AM - 5:00 PM Central Time. Record requests for emergency care only can be directed to [phone] at any time.[facility] Allergies Active Allergy Reactions Criticality Noted Date [...] g 04/19/2025 8:37 AM CDT 5 Active sulfamethoxazo le-trimethopri m (Bactrim DS) 800-160 mg per tabletIndicati ons:Obstructio n Kidney,Chronic Kidney Disease (CKD), Stage 3b Glomerular Filtration Rate (GFR) 30 To 44 (HCC),Hydronep hrosis With Ureteral Stricture Not Elsewhere Classified Take 1 tablet by mouth as directed. Take 1 tablet 1-2 hours prior to nephrostomy tube exchanges. 6 tablet 3 06/04/2025 10:14 AM CDT 5 Active DME Urological suppliesIndica tions:Hydronep hrosis DME Order 1 Unspecified 5 Active DME Urological suppliesIndica tions:Hydronep hrosis DME Order 1 Unspecified 5 Active Active Problems Problem Noted Date [...] 44 03/05/2025 Overview (03/06/2025): Creatinine 0.9-1.1 from 4336-8303. 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 Hydronephrosis (Primary Dx) 07/23/2025 Orders Only Department of Urology in [address] [phone] Madiha Loza RFeiN. Hydronephrosis (Primary Dx) 07/04/2025 Orders Only Department of Urology in [place], [place] [address] [place] [address] Maddie Goff, R.N. 06/04/2025 8:52 AM CDT - 06/04/2025 11:59 PM CDT Hospital Encounter Department of Radiology, [facility], in [address] [phone] Samir Rose M.D. Frimpong, Richard G, M.D. Hydronephrosis Discharge Disposition: Home or Self Care 06/04/2025 Orders Only Department of Radiology, [facility], in [place], [place] [address] [place] [address] Aster White APRN, C.N.P., D.N.P. Obstruction Kidney (Primary Dx); Chronic Kidney Disease (CKD), Stage 3b Glomerular Filtration Rate (GFR) 30 To 44 (HCC); 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 05/21/2025 10:45 AM CDT Lab Department of Urology in [place], [place] [address] [place] [phone] Yadira Drummond P.A.-C. Peterson, Nancy L, R.N. Hydronephrosis 05/15/2025 Orders Only Department of Urology in [place], [place] [address] [place] [phone] Madiha Loza R.N. Hydronephrosis (Primary Dx) 05/15/2025 Orders Only Department of Urology in [place], [place] [address] [place] [phone] Madiha Loza R.N. Hydronephrosis (Primary Dx) 05/09/2025 10:00 AM CDT Comprehensive Visit Department of Urology in [place], [place] [address] [place] [phone] Rupert Loving M.D. Hydronephrosis (Primary Dx) 05/09/2025 9:30 AM CDT Procedure visit Department of Urology in [place], [place] [address] [place] [phone] Rupert Loving M.D. Hydronephrosis 05/08/2025 1:34 PM CDT - 05/08/2025 11:59 PM CDT [facility] [place] [place] [address] [place] [phone] Yadira Drummond P.A.-C. Hydronephrosis Discharge Disposition: Home or Self Care 05/08/2025 1:30 PM CDT Procedure visit Department of Urology in [address] [phone] Yadira Drummond P.A.-C. Dudley, Kathleen A RRedd Feeling Of Incomplete Bladder Emptying (Primary Dx); Hydronephrosis 05/08/2025 9:07 AM CDT - 05/08/2025 1:33 PM CDT Hospital Encounter Department of Radiology, [facility], in [place], [place] [address] [place] [phone] Yadira Drummond P.A.-C. Hydronephrosis Discharge Disposition: Home or Self Care 05/08/2025 6:49 AM CDT - 05/08/2025 9:06 AM CDT Hospital Encounter Department of Laboratory Medicine and Pathology, [facility], in [place], [place] [address] [place] [address] Yadira Drummond P.A.-C. Hydronephrosis Discharge Disposition: Home or Self Care from Last 3 Months Immunizations Immunization Administration Dates Next Due HZV (ZOSTAVAX) 01/26/2008 PPSV23 09/15/2005 Td (Adult), adsorbed 01/26/2008 Family History Medical History Relation Name Comments Parkinsonism Brother 1 Marvy Heart attack Brother 2 Olegario Coronary artery disease Father Nabil age 67 for heart attack Cancer Mother Diane Thyroid disease Mother Diane Relation Name Status Comments Brother 1 Marvy Brother 2 Olegario Alive Had ID at 37 bu t was smoker Father Nabil Mother Diane Social History Tobacco Use Types Packs/Day Years Used Date Smoking Tobacco: Never Smokeless Tobacco: Never Tobacco Cessation:Counseling Given: Not Answered Alcohol Use Standard Drinks/Week Comments Not Currently 0 (1 standard drink = 0.6 oz pur e alcohol) [facility] Utilities Answer Date Recorded In the past 12 months has health system [employer], gas, oil, or water [employer] threatened to shut off services in your [...] your living situation today? [facility] 03/06/2025 Education Answer Date Recorded What is the highest level of school you have completed or the highest degree you have received? Associate degree: occupational, technical, or vocational program 05/27/2020 Comments No Sex and Gender Information Value Date Recorded Sex Assigned at Female 02/19/2025 10:16 AM CDT Legal Sex Female 2:16 PM VASCULAR ULTRASOUND TECHNICIAN Gender Identity Female 02/19/2025 10:16 AM CDT Sexual Orientation Straight 02/19/2025 10 :16 AM CDT Last Filed Vital Signs Vital Sign Reading Time Taken Comments Blood Pressure 204/76 06/04/2025 9:48 AM CDT Pulse 61 06/04/2025 9:50 AM CDT Temperature 36.4 C (97.5 F) 06/04/2025 9:20 AM CDT Respiratory Rate 20 06/04/2025 9:48 AM CDT Oxygen Saturation 99% 06/04/2025 9:50 AM CDT Inhaled Oxygen Concentration - - Weight 78.7 kg (173 lb 8 oz) 04/18/2025 11:36 AM CDT Height 162.6 cm (5' 4) 04/18/2025 11:36 AM CDT Body Mass Index 29.78 04/18/2025 11:36 AM CDT Plan of Treatment Upcoming Encounters Date Type Department Care Team (Late st Contact Info) Description 08/27/2025 1:15 PM VASCULAR ULTRASOUND TECHNICIAN Clinical Communication Virtual Review in [place], [place] [address] [place] [phone] 08/30/2025 9:00 AM VASCULAR ULTRASOUND TECHNICIAN Appointment Department of Laboratory Medicine and Pathology, [facility], in [place], [place] [address] [place] [address] Vicki Rubio M.D., M.S. [address] [place] [phone] 08/30/2025 9:10 AM VASCULAR ULTRASOUND TECHNICIAN Appointment Department of Laboratory Medicine and Pathology, [facility] in [place], [place] [address] [place] [address] Vicki Rubio M.D., M.S. [address] [place] [phone] 08/30/2025 10:45 AM VASCULAR ULTRASOUND TECHNICIAN Appointment Department of Radiology, [facility] in [place], [place] [address] [place] [address] Vicki Rubio M.D., M.S. [address] [place] [phone] 08/30/2025 2:30 PM VASCULAR ULTRASOUND TECHNICIAN Comprehensive Visit Preoperative Evaluation Center in [place], [place] [address] [place] [phone] Vicki Rubio M.D., M.S. [address] [place] [phone] 09/11/2025 11:30 AM VASCULAR ULTRASOUND TECHNICIAN Office Visit Department of Urology in [place], [place] [address] [place] [phone] Rupert Loving M.D. [address] [place] [phone] 09/13/2025 7:45 AM VASCULAR ULTRASOUND TECHNICIAN Hospital Encounter [facility] 01 4 AM ADMIT [address] [place] [phone] Rupert Loving M.D. [address] [place] [phone] 09/13/2025 7:45 AM VASCULAR ULTRASOUND TECHNICIAN - 09/13/2025 2:34 PM VASCULAR ULTRASOUND TECHNICIAN Surgery [facility]IN [facility] [address] [place] [address] Rupert Loving M.D. [address] [place] [address] URETEROSCOPY Scheduled Procedures Name Priority Associated Diagnoses Date/Ti me URETEROSCOPY 09/13/2025 7:45 AM VASCULAR ULTRASOUND TECHNICIAN ROBOTIC-ASSISTED PYELOPLASTY 09/13/2025 7:45 AM VASCULAR ULTRASOUND TECHNICIAN Health Maintenance Due Date Last Done Comments Office Visit for Blood Pressure Check / Re-check 1940 DTaP,Tdap,and Td Vaccines (1 - Tdap) 01/27/2008 01/26/2008 Zoster Vaccines (2 of 3) 03/22/2008 01/26/2008 RSV vaccine - (32-36 weeks) or 50+ years (1 - 1-dose 75+ series) 2015 Depression Screening (Annual PHQ-2) 09/27/2024 COVID-19 Vaccine ( - 2024- season) 2025 Influenza Vaccine (#1) 2025 6, 06/24/2015, 07/17/2014, Additional history exists Thyroid Stimulating Hormone (TSH) test for thyroid function 07/25/2025 07/25/2024, 02/17/2024, 07/28/2023, Additional history exists Creatinine Level (Kidney Function Test) 05/08/2026 05/08/2025, 04/18/2025, 03/07/2025, Additional history exists Potassium Level 05/08/2026 05/08/2025, 03/28, 03/07/2025, Additional history exists Sodium Level 05/08/2026 05/08/2025, 03/28, 03/07/2025, Additional history exists Pneumococcal vaccine (50+ years) Completed 04/20/2017, 09/15/2005 Fall Risk Screen (Annual) Completed 06/04/2025 IPV Vaccines Aged Out No longer eligi ble based on patient's age to complete this topic Goals Goal Patient Goal Type Associated Problems Recent Progress Patient-Stated? Author Autogenera kelley Goal Care Plan Autogenerated Problem No [employer] Implanted Type Area Brusher Device Identifier Shelf Expiration Date Model / Serial / Lot Conversions - Default Historical Implant Device Implanted:04/18 (Quantity not on file) Knee Implant Left: Knee Description:Body Location - Knee L. LT TKA 1997. Device Status Text - Knee Joint. Procedures Procedure Name Priority Date/Time Associated Diagnosis Comments IR NEPHROSTOMY TUBE EXCHANGE RIGHT RAD - Routine (most inpatients and all outpatients) 06/04/2025 9:48 AM CDT Hydronephrosis MICROSCOPIC AUTOMATED Routine 05/21/2025 10:57 AM CDT DIPSTICK, U Routine 05/21/2025 10:57 AM CDT PH, U Routine 05/21/2025 10:57 AM CDT OSMOLALITY, U Routine 05/21/2025 10:57 AM CDT URINALYSIS WITH MICROSCOPIC Routine 05/21/2025 10:57 AM CDT Hydronephrosis BACTERIAL CULTURE, AEROBIC + SUSC, URINE Routine 05/21/2025 10:57 AM CDT Hydronephrosis URO CYSTO W/RETROGRADE PYELOGRAM Routine 05/09/2025 10:00 AM CDT Hydronephrosis SC URINALYSIS AUTO WO MICRO Routine 05/09/2025 9:[address] UROGRAM WITHOUT AND WITH IV CONTRAST RAD - Routine (most inpatients and all outpatients) 05/08/2025 3:44 PM CDT Hydronephrosis URO UROFLOW Routine 05/08/2025 1:30 PM CDT Hydronephrosis NM KIDNEY WITH LASIX RAD - Routine (most inpatients and all outpatients) 05/08/2025 11:45 AM CDT Hydronephrosis CYSTATIN C WITH EGFR Routine 05/08/2025 7:07 AM CDT Hydronephrosis BASIC METABOLIC PANEL, S/P Routine 05/08/2025 7:07 AM CDT Hydronephrosis THYROID FUNCTION CASCADE, S Routine 05/28/2020 3:44 PM CDT Hypertension And Chronic Kidney Disease Stage 1 To 4 Pain Chest Nodule Pulmonary Obesity Body Mass Index 30-39.9 Adult Apnea Sleep Obstructive from Last 3 Months or Most Recently Relevant to Health Maintenance Results * IR Nephrostomy Tube Exchange Right (06/04/2025 9:48 AM CDT) Anatomical Region Laterality Modality Genito Urinary, Vascular Int erventional RST LOS, Vascular Interventional ARZ LOS, Vascular Interventional FLA LOS Right X-Ray Angiography Impressions 06/04/2025 12:14 PM CDT Exchange of 10 Filipino right nephrostomy tube. Recommend routine exchange in 3 months. NR Narrative 06/04/2025 12:14 PM CDT EXAM: IR NEPHROSTOMY TUBE EXCHANGE RIGHT CLINICAL HISTORY: Routine right nephrostomy tube exchange. Patient takes oral antibiotics and requires no sedation. TECHNIQUE: The right flank and nephrostomy tube were prepped and draped in routine sterile fashion. Class A Lineman image showed a right nephrostomy tube. Injection of contrast through the nephrostomy tube demonstrated persistent right UPJ obstruction. The tube was exchanged for identical 10 Filipino catheter with pigtail positioned in the right renal pelvis. Injection of contrast through the new right nephrostomy tube showed satisfactory position and function. Tube was secured in place with 2-0 Prolene suture. No immediate complication. PREPROCEDURE: Patient seen and evaluated. Allergies, pertinent [...] residents, and fellows were discussed. Procedure Note Mike Solis M.D. - 06/04/2025 EXAM: IR NEPHROSTOMY TUBE EXCHANGE RIGHT CLINICAL HISTORY: Routine right nephrostomy tube exchange. Patient takesoral antibiotics and requires no sedation. TECHNIQUE: The right flank and nephrostomy tube were prepped and draped inroutine sterile fashion. Class A Lineman image showed a right nephrostomy tube.Injection of contrast through the nephrostomy tube demonstrated persistentright UPJ obstruction. The tube was exchanged for identical 10 Filipino catheter with pigtail positioned inthe right renal pelvis. Injection of contrast through the new rightnephrostomy tube showed satisfactory position and function. Tube wassecured in place with 2-0 Prolene suture. No immediate complication. PREPROCEDURE: Patient seen and evaluated. Allergies, pertinentmedications, [...] team members, residents, and fellows werediscussed. IMPRESSION: Exchange of 10 Filipino right nephrostomy tube. Recommend routine exchangein 3 months. NR Samir Rose M.D. IMG IR PROCEDURES Final Re sult * (ABNORMAL) Dipstick, Urine (05/21/2025 10:57 AM CDT) Hemoglobin, QL Small(A) Negative 05/21/2025 12:52 PM CDT DTL Leukocyte Esterase, U Moderate(A) Negative 05/21/2025 12:52 PM CDT DTL Nitrite, U Negative Negative 05/21/2025 12:52 PM CDT DTL Ketones, U Negative Negative mg/dL 05/21/2025 12:52 PM CDT DTL Glucose, U Negative Negative mg/dL 05/21/2025 12:52 PM CDT DTL Urine 05/21/2025 10:5 7 AM CDT 05/21/2025 11:59 AM CDT Yadira Drummond P.A.-C. LAB URINE ORDERABLES Fin al Result Performing Organization Address [facility] de Phone Number [facility] [address] [facility] [address] [place] [address] * Microscopic Automated (05/21/2025 10:57 AM CDT) Microscopy Normal 05/21/2025 12:52 PM CDT DTL RBC <3 <3 /hpf 05/21/2025 12:52 PM CDT DTL WBC 4-10 /hpf 05/21/2025 12:52 PM CDT DTL Comment: ----REFERENCE VALUE---- <4 (Males) <11 (Females) Casts, Hyaline 1-3 /lpf 05/21/2025 12:52 PM CDT DTL Urine 05/21/2025 10:5 7 AM CDT 05/21/2025 11:59 AM CDT Yadira BernalC. LAB URINE ORDERABLES Fin al Result Performing Organization Address [facility] de Phone Number [facility] [address] [place] [address], [facility] DTL [facility] [address] [place] [address] * Bacterial Culture, Aerobic + Susceptibility, Urine (05/21/2025 10:57 AM CDT) Urine Culture Organism present <10,000 cfu/mL, susceptibilities not performed per laboratory criteria. 05/22/2025 7:28 AM CDT DTL Urine (Urine, Nephrostomy Right) 05/21/2025 10:57 AM CDT 05/21/2025 12:33 PM CDT Comment:Specimen Source Site : Urine us Yadira Drummond P.A.-C. LAB MICROBIOLOGY - GENER AL ORDERABLES Final Result [facility] [address] [place] [address] * pH, Urine (05/21/2025 10:57 AM CDT) pH, U 7.7 4.5 - 8.0 05/21/2025 12: 55 PM CDT DT Urine 05/21/2025 10:5 7 AM CDT 05/21/2025 11:59 AM CDT us Yadira Drummond P.A.-C. LAB URINE ORDERABLES Fin al Result Performing Organization Address City/[facility]/ZIP Co de Phone Number [facility] [address] [place] [address] * Osmolality, Urine (05/21/2025 10:57 AM CDT) Osmolality, U 187 150 - 1150 mOsm/kg 05/21/2025 12:55 PM CDT DT Urine 05/21/2025 10:5 7 AM CDT 05/21/2025 11:59 AM CDT us Yadira Drummond P.A.-C. LAB URINE ORDERABLES Fin al Result Performing Organization Address City/[facility]/ZIP Co de Phone Number [facility] [address] [place] [address] * (ABNORMAL) Urinalysis, with Microscopic: Urine, Nephrostomy Right (05/21/2025 10:57 AM CDT) Source Urine, Urine, Nephrostomy Right 05/21/2025 11:59 AM CDT DTL Color, U Colorless 05/21/2025 11:59 AM CDT DTL Clarity, U Clear 05/21/2025 11:59 AM CDT DTL Protein, U 35(H) <26 mg/dL 05/21/2025 12:56 PM CDT DTL Protein/Osmol ality 1.87(H) <0.42 ratio 05/21/2025 12:56 PM CDT DTL Predicted 24 HR Protein, U 1182(H) <229 mg/24 h 05/21/2025 12:56 PM CDT DTL Predicted Range 292-4785 mg/24 h 05/21/2025 12:56 PM CDT DTL Urine (Urine, Nephrostomy Right) 05/21/2025 10:57 AM CDT 05/21/2025 11:59 AM CDT Yadira Drummond P.A.-C. LAB URINE ORDERABLES Fin al Result [facility] [address] [place] [address] * URO Cysto w/retrograde pyelogram (05/09/2025 10:00 AM CDT) Narrative Samir Rose M.D. - 05/09/2025 9:30 AM CDT Samir Rose M.D. 05/09/2025 12:21 PM URO Cysto w/retrograde pyelogram Performed by: Samir Rose M.D. Authorized by: Yadira Drummond P.A.-C. CONSENT Consent obtained: verbal Consent given by: patient The benefits, risks and alternatives to the procedure and the potential need for sedation or anesthesia as well as the names, roles, and responsibilities of healthcare team members performing significant interventional tasks were discussed with the patient and/or decision maker. UN[employer] All relevant documentation and testing were reviewed and available. All required blood products, implants, devices and or special equipment were made available as applicable. Pre-procedure verification was conducted and the correct site was marked if required. A fire risk and smoke assessment were done as applicable. The procedural time-out to verify correct patient, correct side/site, and procedure was conducted prior to performing the procedure and confirmed in a procedural pause. PRE-PROCEDURE DETAILS Procedure purpose: Diagnostic Indications: Right UPJ obstruction Comments Cystoscopy performed. Urethra normal. No bladder abnormalities noted. Both UOs orthotopic and effluxing clear urine. Class A Lineman images were taken demonstrating a right percutaneous nephrostomy in good position. Right ureteral orifice was cannulated with a whistle-tip catheter and contrast was injected. Serial images were taken demonstrating a proximal narrow UPJ segment consistent with UPJ 0. The percutaneous nephrostomy was kept open during this procedure. Drainage films were taken. Scope was removed and the procedure concluded. Patient tolerated the procedure well. us Yadira Drummond P.A.-C. UROLOGY ORDERABLES Final Result * Dipstick, POCT, Urine (05/09/2025 9:30 AM CDT) Glucose, POCT, U Negative Negative mg/dL 05/09/2025 9:32 AM CDT PCDT Ketone, POCT, U Negative Negative mg/dL 05/09/2025 9:32 AM CDT PCDT Specific Crucible, POCT, U <=1.005 1.005 - 1.030 05/09/2025 9:32 AM CDT PCDT Blood, POCT, U Negative Negative 05/09/2025 9:32 AM CDT PCDT pH, POCT, Urine 6.0 5.0 - 8.0 05/09/2025 9:32 AM CDT PCDT Protein, POCT, U Negative Negative mg/dL 05/09/2025 9:32 AM CDT PCDT Nitrites, POCT, U Negative Negative 05/09/2025 9:32 AM CDT PCDT Leukocytes, POCT, U Negative Negative 05/09/2025 9:32 AM CDT PCDT Urine 05/09/2025 9:30 AM CDT 05/09/2025 9:32 AM CDT us Unknown Provider LAB POCT ORDERABLES - DEVICE Fi nal Result [facility] [address] [place] [address], [place] PCDT [facility] [place] [facility] [address] [place] [address] * CT Urogram without and with IV Contrast (05/08/2025 3:44 PM CDT) Anatomical Region Laterality Modality Abdomen, Pelvis, Abdominal R ST LOS, Abdominal ARZ LOS, Abdominal FLA LOS N/A Computed Tomograp hy, Computed Tomography 05/08/2025 3:23 PM CDT Impressions 05/08/2025 3:46 PM CDT Interval placement of percutaneous right nephrostomy tube with decreased but mildly persistent pelvocaliectasis. Findings are likely secondary to mild idiopathic chronic UPJ obstruction. Narrative 05/08/2025 3:46 PM CDT EXAM: CT UROGRAM WITHOUT AND WITH IV CONTRAST COMPARISON: Nuclear medicine kidney with Lasix 05/08/2025, FDG PET/CT 06/17/2020, CT abdomen and pelvis 2019 FINDINGS: : Right sided percutaneous nephrostomy tube with resultant inflammatory stranding in the right pelvis and collecting system. Since 2029, interval decreased but mildly persistent mild right pelvocaliectasis. No nephroureterolithiasis. Decompressed bladder. Hypoattenuating right upper pole cyst. Nonopacification of the right ureter secondary to slow flow. Normal opacification of the left ureter. Ovaries and uterus are within normal limits. Other: Cholecystectomy. Mild intrahepatic biliary duct dilation, likely reservoir effect. Normal pancreas. Colonic diverticulosis. Large duodenal diverticulum. Lung bases are clear. Old screw tract right femur. No suspicious osseous lesions. Scattered osseous degenerative changes. Procedure Note Pb Vivas M.D. - 05/08/2025 EXAM: CT UROGRAM WITHOUT AND WITH IV CONTRAST COMPARISON: Nuclear medicine kidney with Lasix 05/08/2025, FDG PET/CT06/17/2020, CT abdomen and pelvis 2019 FINDINGS: : Right sided percutaneous nephrostomy tube with resultant inflammatorystranding in the right pelvis and collecting system. Since 2029,interval decreased but mildly persistent mild right pelvocaliectasis. Nonephroureterolithiasis. Decompressed bladder. Hypoattenuating right upper pole cyst. Nonopacification of the right ureter secondary to slow flow. Normalopacification of the left ureter. Ovaries and uterus are within normal limits. Other: Cholecystectomy. Mild intrahepatic biliary duct dilation, likely reservoireffect. Normal pancreas. Colonic diverticulosis. Large duodenaldiverticulum. Lung bases are clear. Old screw tract right femur. No suspicious osseous lesions. Scatteredosseous degenerative changes. IMPRESSION: Interval placement of percutaneous right nephrostomy tube with decreasedbut mildly persistent pelvocaliectasis. Findings are likely secondary tomild idiopathic chronic UPJ obstruction. us Yadira Drummond P.A.-C. IMG CT PROCEDURES Final Result * URO Uroflow (05/08/2025 1:30 PM CDT) Narrative Brian Tapia M.D. - 05/08/2025 1:30 PM CDT Brian Tapia M.D. 05/08/2025 4:02 PM Reason for visit: UROFLOW The patient is here for a complex uroflow via calibrated electronic equipment and residual urine checked by ultrasound. Peak flow: 12 ml/sec Average flow: 7 ml/sec Voiding time: 53.9 sec Total voided volume: 123.5 mls Intermittent flow pattern Residual urine: 34 ml by ultrasound Impression: Low voided volume with low postvoid residual. us Yadira Drummond P.A.-C. UROLOGY ORDERABLES Final Result * NM Kidney with Lasix (05/08/2025 11:45 AM CDT) Anatomical Region Laterality Modality Renal, Nuclear Medicine RST LOS, Nuclear Medicine ARZ LOS, Nuclear Medicine FLA LOS, Nuclear Medicine N/A Nuclea r Medicine Impressions 05/08/2025 4:41 PM CDT High-grade obstruction of the right kidney. Narrative 05/08/2025 4:41 PM CDT EXAM: NM KIDNEY WITH LASIX RADIOPHARMACEUTICAL/MEDS: Route: intravenous technetium Tc 99m mertiatide (Tc-99m MAG3),10.7 millicurie Route: intravenous furosemide injection 1.5-40 mg (Lasix) , 39.4 mg TECHNIQUE: Planar dynamic vascular flow and function images of the kidneys beginning immediately following IV radiotracer injection. Additional posterior planar images of the kidneys obtained with pharmacologic intervention using intravenous Lasix. Right nephrostomy tube was clamped. COMPARISON: Prior NM kidney with Lasix dated 02/20/2025 INDICATION: Right hydronephrosis. Interval right percutaneous nephrostomy tube placement. FINDINGS: Normal uptake throughout the left kidney cortex. Decreased uptake in smaller right kidney. Split Renal Function: * Right kidney: 23 % * Left kidney: 77% There is retention of the tracer in the collecting system of the right kidney without response to Lasix. Normal urine outflow from the left kidney. Procedure Note Christianne Cardona M.D. - 05/08/2025 EXAM: NM KIDNEY WITH LASIX RADIOPHARMACEUTICAL/MEDS: Route: intravenous technetium Tc 99m mertiatide (Tc-99m MAG3),10.7 millicurie Route: intravenous furosemide injection 1.5-40 mg (Lasix) , 39.4 mg TECHNIQUE: Planar dynamic vascular flow and function images of the kidneysbeginning immediately following IV radiotracer injection. Additionalposterior planar images of the kidneys obtained with pharmacologicintervention using intravenous Lasix. Right nephrostomy tube was clamped. COMPARISON: Prior NM kidney with Lasix dated 02/20/2025 INDICATION: Right hydronephrosis. Interval right percutaneous nephrostomytube placement. FINDINGS: Normal uptake throughout the left kidney cortex. Decreased uptake insmaller right kidney. Split Renal Function: * Right kidney: 23 % * Left kidney: 77% There is retention of the tracer in the collecting system of the rightkidney without response to Lasix. Normal urine outflow from the left kidney. IMPRESSION: High-grade obstruction of the right kidney. us Yadira Drummond P.A.-C. [facility] PROCED[facility] Final Result * (ABNORMAL) Cystatin C with Estimated GFR (05/08/2025 7:07 AM CDT) eGFR by Cystatin C 21(L) >60 mL/min/BSA 05/08/2025 8:07 AM CDT DTL Comment: Estimated GFR calculated using the CKD-EPI Cystatin C (2012) equation. ----ADDITIONAL INFORMATION---- Cystatin C-based eGFR may differ substantially from creatinine- based eGFR in patients with abnormal muscle mass or acutely changing renal function. Please interpret together with relevant clinical features. On 02/20/2021 the cystatin C assay method changed. Cystatin C eGFR results > 50 ml/min/1.73m2 are approximately 10% lower with the new assay. Cystatin C 2.32(H) 0.67 - 1.21 mg/L 05/08/2025 8:07 AM CDT DTL Blood (Blood, Venous) 05/08/2025 7:07 AM CDT 05/08/2025 7:29 AM CDT Yadira Drummond P.A.-C. LAB BLOOD ADD-ON Final R esult [facility] [address] [address], [facility] [address] * (ABNORMAL) Basic Metabolic Panel (05/08/2025 7:07 AM CDT) Potassium, S 4.6 3.6 - 5.2 mmol/L 05/08/2025 8:07 AM CDT DTL Sodium, S 139 135 - 145 mmol/L 05/08/2025 8:07 AM CDT DTL Chloride, S 104 98 - 107 mmol/L 05/08/2025 8:07 AM CDT DTL Bicarbonate, S 23 22 - 29 mmol/L 05/08/2025 8:07 AM CDT DTL Anion Gap 12 7 - 15 05/08/2025 8:07 AM CDT DTL BUN (Blood Urea Nitrogen), S 35(H) 6 - 21 mg/dL 05/08/2025 8:07 AM CDT DTL Creatinine 1.78(H) 0.59 - 1.04 mg/dL 05/08/2025 8:07 AM CDT DTL Estimated GFR (eGFR) 28(L) >=60 mL/min/BSA 05/08/2025 8:07 AM CDT DTL Comment: Estimated GFR calculated using the 2020 CKD_EPI creatinine equation. Calcium, Total, S 9.2 8.8 - 10.2 mg/dL 05/08/2025 8:07 AM CDT DTL Glucose, S 84 70 - 140 mg/dL 05/08/2025 8:07 AM CDT DTL Blood (Blood, Venous) 05/08/2025 7:07 AM CDT 05/08/2025 7:29 AM CDT Yadira Drummond P.A.-C. LAB BLOOD ADD-ON Final R esult Performing Organization Address [facility] Co de Phone Number [facility] [address] [place] [address] * Thyroid Function [place] (05/28/2020 3:44 PM CDT) TSH, Sensitive 1.8 0.3 - 4.2 mIU/L 05/28/2020 4:57 PM CDT DTL Blood (Blood, Venous) 05/28/2020 3:44 PM CDT 05/28/2020 4:32 PM CDT Viky Decker M.D. LAB BLOOD ADD-ON Final Re sult Performing Organization Address City/[facility] Co de Phone Number [facility] [address] [place] [address] from Last 3 Months or Most Recently Relevant to Health Maintenance Additional Health Concerns Active Problems Noted Date Diagnosed Date Autogenerated Problem 07/23/2025 Insurance MEDICARE [facility] Advance Directives For more information, please contact: [phone] * Full Code (Latest Code Status on File) Date Activated Date Inactivated Comments 03/06/2025 5:41 PM 03/07/2025 6:50 PM Question Answer Comments Full Code: Discussed Care Teams Prosthetic Aides Teacher Relationship Specialty Start Date End Date Elsewhere, Pcp PCP - General Internal Medicine 04/18/25
--- OUTSIDE RECORDS SUMMARY | 2025-08-03 09:21 | XMS_ITS | Encounter Summary ---
Author Organization [facility] Address [address] [place] [address] Care Team Providers Care Infant Room Teacher Name Role Phone Elsewhere, Pcp Primary Care Provider Unavailabl e Reason for Referral * Outpatient (Routine) - Authorized Specialty Diagnoses / Procedures Referred By Contac t Referred To Contact Diagnoses Obstruction Kidney Procedures NM Kidney with Yadira Matthews PFeiASav [address] [place] [address] Phone: tel: fax: [facility] Referral ID Status Reason Start Date Expiration Date V isits Requested Visits Authorized [id number] Authorized 02/13/2025 05/16/2026 8 8 Encounter Details Date Type Department Care Team (Late st Contact Info) Description 02/13/2025 Orders Only Department of Urology in [place], [place] [address] [place] [phone] [facility], MD Jenny Obstruction Kidney Social History Tobacco [...] AM CDT Legal Sex Female 2:16 PM REFRIGERATOR REPAIR TECHNICIAN Gender Identity Female 02/19/2025 10:16 AM CDT Sexual Orientation Straight 02/19/2025 10 :16 AM CDT documented as of this encounter Plan of Treatment Upcoming Encounters Date Type Department Care Team (Late st Contact Info) Description 08/27/2025 1:15 PM REFRIGERATOR REPAIR TECHNICIAN Clinical Communication Virtual Review in [address] [phone] 08/30/2025 9:00 AM REFRIGERATOR REPAIR TECHNICIAN Appointment Department of Laboratory Medicine and Pathology, [place], [place] [address] [place] [phone] Vicki Rubio M.D., M.S. [address] [place] [phone] 08/30/2025 9:10 AM REFRIGERATOR REPAIR TECHNICIAN Appointment Department of Laboratory Medicine and Pathology, [place], [place] [address] [place] [phone] Vicki Rubio M.D., M.S. [address] [place] [phone] 08/30/2025 10:45 AM REFRIGERATOR REPAIR TECHNICIAN Appointment Department of Radiology, [place], [place] [address] [place] [phone] Vicki Rubio M.D., M.S. [address] [place] [phone] 08/30/2025 2:30 PM REFRIGERATOR REPAIR TECHNICIAN Comprehensive Visit Preoperative Evaluation Center in [place], [place] [address] [place] [address] Vicki Rubio M.D., M.S. [address] [place] [phone] 09/11/2025 11:30 AM REFRIGERATOR REPAIR TECHNICIAN Office Visit Department of Urology in [place], [place] [address] [place] [address] Rupert Loving M.D. [address] [place] [phone] 09/13/2025 7:45 AM REFRIGERATOR REPAIR TECHNICIAN Hospital Encounter [facility] 01 4 AM ADMIT [address] [place] [phone] Rupert Loving M.D. [address] [place] [phone] 09/13/2025 7:45 AM REFRIGERATOR REPAIR TECHNICIAN - 09/13/2025 2:34 PM REFRIGERATOR REPAIR TECHNICIAN Surgery [facility] MAIN OR [address] [place] [address] Rupert Loving M.D. [address] [place] [phone] URETEROSCOPY Scheduled Procedures Name Priority Associated Diagnoses Date/Ti me URETEROSCOPY 09/13/2025 7:45 AM REFRIGERATOR REPAIR TECHNICIAN ROBOTIC-ASSISTED PYELOPLASTY 09/13/2025 7:45 AM REFRIGERATOR REPAIR TECHNICIAN documented as of this encounter Results * [...] P.A.-C. IMG NM PROCEDURES Final Result * Urinalysis, with Microscopic: [...] P.A.-C. LAB URINE ORDERABLES Fin al Result [place] [address] [place] [address], [facility] [address] [place] [address] documented in this encounter Visit Diagnoses Diagnosis Obstruction Kidney Obstruction Kidney documented in this encounter Care Teams Infant Room Teacher Relationship Specialty Start Date End Date Elsewhere, Pcp PCP - General Internal Medicine 04/18/25 documented as of this encounter
--- OUTSIDE RECORDS SUMMARY | 2025-08-03 09:22 | XMS_ITS | Clinical Summary ---
Author Organization [facility] Address [address] [place] [address] Care Team Providers Care [employer] Business Manager Name Role Phone MadhavJoann jacobo Primary Care Provider [phone] Zachariah Porter MD Unavailable [phone] [place] Unavailable Unavailable Allergies Active Allergy Reactions Criticality Noted Date Comments Abdon Inhibitors Cough 10/22/2006 Amlodipine Edema 02/06/2025 Cat Dander Wheezing 01/31/2015 Apixaban Diarrhea 07/09/2022 House Dust *Unknown 01/31/2015 Levofloxacin Rash Low 03/05/2025 Hyoscyamine Rash 10/22/2006 Metoprolol Bradycardia,Edema,GI Upset 03/01/2009 Reflux, leg swelling Medications cholecalciferol, Vitamin D3, 5,000 unit tab tablet Take by mouth once daily. 0 01/26/20 15 Active nebulizer accessories misc miscIndications: Wheezing As directed. replace mask and tubing every 6 months. 1 Each 1 03/19/20 23 Active magnesium glycinate 100 mg magnesium capIndications:G astroesophageal reflux disease, unspecified whether esophagitis present Take 100 mg by mouth once daily. 0 04/19/20 23 Active NebulizerIndicat ions:Wheezing Nebulizer, disposable neb kit x 4, reuseable neb kit x 1, mask x 1, filters x 1. Frequency of use: daily; Medication: albuterol Length of need: 99 months 1 Each 07/28/20 23 Active Synthroid 88 mcg tabletIndication s:Hypothyroidism due to acquired atrophy of thyroid Take 1 Tablet (88 mcg) by mouth before breakfast. 100 Tablet 3 02/02/20 25 Active metoprolol tartrate 25 mg tabletIndication s:Paroxysmal A-fib (HC) Take 0.5 Tablets (12.5 mg) by mouth two times daily. 90 Tablet 1 04/02/20 25 Active losartan (COZAAR) 50 mg tabletIndication s:HTN (hypertension) Take 1 Tablet (50 mg) by mouth two times daily. 05/02/20 25 Active oxyCODONE (ROXICODONE) 5 mg immediate release tabletIndication s:Chronic left hip pain Take 1 Tablet (5 mg) by mouth every 4 hours if needed for Pain. 20 Tablet 07/04/20 25 Active triamcinolone 0.5 % creamIndications :Dermatitis Apply topically to affected area(s) two times daily. 15 g 1 07/04/20 25 Active albuterol 2.5 mg/0.5 mL CONCENTRATED NEB solution Inhale 2.5 mg via a nebulizer one time if needed for Shortness Of Breath. 01/15/20 23 Discontinu ed(Other - add note to specify (E-cancel not sent)) albuterol 0.083% (2.5 mg/3 mL) neb solutionIndicati ons:Post-viral cough syndrome Inhale 3 mL (2.5 mg) via a nebulizer every 4 hours if needed for Cough. 540 mL 05/15/20 24 025 Discontinu ed(Other - add note to specify (E-cancel not sent)) azithromycin (ZITHROMAX) 250 mg tablet 04/29/20 25 Discontinu ed(Other - add note to specify (E-cancel not sent)) albuterol-ipratr opium (DUONEB) (2.5-0.5 mg) in 3 mL NEBULIZATION solution USE ONE VIAL IN NEBULIZER EVERY SIX HOURS NEEDED 04/30/20 25 025 Discontinu ed(Other - add note to specify (E-cancel not sent)) predniSONE (DELTASONE) 20 mg tablet 04/29/20 25 025 Discontinu ed(Other - add note to specify (E-cancel not sent)) LORazepam (ATIVAN) 0.5 mg tabIndications:A nxiety Take 1 Tablet (0.5 mg) by mouth one time for 1 dose. 1 Tablet 05/02/20 25 025 Discontinu ed(Other - add note to specify (E-cancel not sent)) Active Problems Problem Noted Date Diagnosed Date Anemia in chronic kidney disease 03/05/2025 Overview (05/02/2025): Baseline hemoglobin in the mid tens-11 range. Ferritin 125 in April 2023 Most recent hemoglobin 10.5 from December 2023. Senile osteopenia 11/27/2024 Diastolic congestive heart f ailure, unspecified HF chronicity 03/09/2024 Chronic obstructive pulmonar y disease, unspecified COPD type 03/09/2024 Atherosclerosis of aorta 03/09/2024 Renal insufficiency 02/17/2024 Disorder of kidney and ureter, unspecified 02/16 CHI (closed head injury) 02/16/2024 Elevated blood pressure reading 02/16/2024 Mass of right lung 02/16/2024 Hypertension 02/16/2024 Asthma 02/16/2024 TIA (transient ischemic attack) 02/16/2024 Anemia 12/24/2023 Hydronephrosis with ureteral stricture, not elsewhere classified 12/24/2023 UPJ stricture, acquired 12/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 History of falling 06/17/2020 Lung granuloma 03/01/2019 Overview (07/05/2020): CT stable [address] [employer] continues to confirm no change 2019 Arthritis [...] Encounters Date Type Department Care Team Description 07/05/2025 2:00 PM CDT Office Visit [facility] [address] [facility] [address] [place] [address] Jose Eduardo Ybarra MD CV General Cardiology Est (Paroxysmal A-fib (HC)/Ademine Motta DO/) 07/05/2025 Travel 07/04/2025 3:45 PM CDT Office Visit [facility] [address] [place] [address] Joann Motta DO Neck Pain/problem (RIGHT neck pain - has had previous neck injections ); Diarrhea (X1 day - had chills and explosive stools ) 07/04/2025 Telephone [employer] [facility] [place] [address] [facility] [address] [place] [address] Jose Flores DO Screening 07/03/2025 Travel 07/02/2025 Travel 06/24/2025 Travel from Last 3 Months Immunizations Immunization [...] Never Smokeless Tobacco: Never Tobacco Cessation:Counseling Given: Yes Alcohol Use Standard Drinks/Week Comments Not Currently 0 (1 standard drink = 0.6 oz pur e alcohol) rare PHQ-2 Answer Date Recorded PHQ-2 TOTAL SCORE 0 07/25/2024 Social Connections Answer Date Recorded Do you often feel lonely or isolated from those around you? 0 02/01/2025 Alcohol Use Answer Date Recorded How often do you have a drink containing alcohol ? 0 07/04/2025 How many drinks containing a lcohol do you have on a typical day when you are drinking? 0 07/04/2025 How often do you have five or more drinks on one occasion? 0 07/04/2025 Financial Resource Strain Answer Date R ecorded [...] on file Legal Sex Female 5:23 AM LINE MANAGER Gender Identity Not on file Sexual Orientation [...] A5 Name Clin 1961 Term F Vag Carlos Maynard 1963 Term M Vag Ryan 1967 Term F Vag Dacia 1968 36w 0d M Vag Carlos Bridgesic Comments FOUR LIVE BIRTHS AND ONE ADO PTION Last Filed Vital Signs Vital Sign Reading Time Taken Comments Blood Pressure 140/54 07/05/2025 2:00 PM CDT Pulse 66 07/05/2025 2:00 PM CDT Temperature 36.6 C (97.9 F) 04/12/2025 1:03 PM CDT Respiratory Rate 16 03/03/2025 12:17 PM CDT Oxygen Saturation 99% 07/05/2025 2:00 PM CDT Inhaled Oxygen Concentration - - Weight 78.9 kg (174 lb) 07/05/2025 2:00 PM CDT Height 162.6 cm (5' 4) 07/05/2025 2:00 PM CDT Body Mass Index 29.87 07/05/2025 2:00 PM CDT Plan of Treatment Upcoming Encounters Date Type Department Care Team (Late st Contact Info) Description 08/08/2025 1:15 PM LINE MANAGER Office Visit [facility] [address] [place] [address] Joann Motta DO [address] [facility] [address] 08/13/2025 3:30 PM LINE MANAGER Office Visit [facility] [address] [place] [phone] [place] [address] [place] [address] Health Maintenance Due Date Last Done Comments Zoster (shingles) series for age 50+ (2 of 3) 03/22/2008 01/26/2008 RSV vaccine for adults or (1 - 1-dose 75+ series) 2015 Tetanus booster 01/25/2018 01/26/2008, 09/2007, 02/26/1988 Influenza Vaccine (#1) 2025 6, 09/15/2016, 06/24/2015, Additional history exists Depression screening for age 12+ 07/25/2025 07/25/2024, 07/25/2024, 01/05/2022, Additional history exists Medicare Wellness for age 65+ 07/26/2025 07/25/2024, 01/05/2022 BMI (ht and wt on same day) for age 18+ 07/05/2026 07/05/2025, 03/26/2025, 07/25/2024, Additional history exists DEXA/DXA scan for age 65+ Completed 04/29/2009 Pneumococcal series for age 50+ Completed 04/20/2017, 09/15/2005 Hepatitis B series for 19+ Aged Out N o longer eligible based on patient's age to complete this topic Procedures Procedure Name Priority Date/Time Associated Diagnosis Comments URINALYSIS MICROSCOPIC STAT 07/04/2025 4:19 PM CDT Suprapubic pain URINE CULTURE Routine 07/04/2025 4:19 PM CDT Suprapubic pain URINALYSIS MACROSCOPIC - [facility] ONLY POC DIP ([facility]) Routine 07/04/2025 4:19 PM CDT Suprapubic pain XR DXA BONE DENSITY 2 SITES AXIAL Routine 04/29/2009 Osteoporosis Screening from Last 3 Months or Most Recently Relevant to Health Maintenance Results * (ABNORMAL) POCT Urinalysis Dipstick Only [[id number]] (07/04/2025 4:19 PM CDT) SPECIFIC GRAVITY 1.010 1.001 - 1.035 07/04/2025 4:34 PM CDT [facility] PROTEIN NEGATIVE NEGATIVE 07/04/2025 4:34 PM CDT [facility] GLUCOSE NEGATIVE NEGATIVE 07/04/2025 4:34 PM CDT [facility] KETONES NEGATIVE NEGATIVE 07/04/2025 4:34 PM CDT [facility] BILIRUBIN NEGATIVE NEGATIVE 07/04/2025 4:34 PM CDT [facility] OCCULT BLOOD TRACE(A) NEGATIVE 07/04/2025 4:34 PM CDT [facility] NITRITE NEGATIVE NEGATIVE 07/04/2025 4:34 PM CDT [facility] PH 7.0 5.0 - 8.0 07/04/2025 4:34 PM CDT [facility] LEUKOCYTE ESTERASE NEGATIVE NEGATIVE 07/04/2025 4:34 PM CDT [facility] Urine URINE SPECIMEN / Unknown Non-Blood / Unknown 07/04/2025 4:19 PM CDT 07/04/2025 4:19 PM CDT us Joann Motta DO URINE Final Result [facility] [address] [place] [address], [place] [phone] [facility] [address] [place] [address], [place] [phone] * URINALYSIS MICROSCOPIC [[id number]] - STAT (07/04/2025 4:19 PM CDT) RBC 0-2 0-2, None Seen /HPF 07/05/2025 6:51 AM CDT [facility] WBC 0-2 0-2, 3-5, None Seen /HPF 07/05/2025 6:51 AM CDT [facility] BACTERIA None Seen None Seen, Rare, Few Bacteria/ HPF 07/05/2025 6:51 AM CDT [facility] EPITHELIAL CELLS None Seen None Seen, Few Epi/HPF 07/05/2025 6:51 AM CDT [facility] HYALINE CASTS 0-2 0-2, 3-5 /LPF 07/05/2025 6:51 AM CDT [facility] Urine URINE SPECIMEN / Unknown Non-Blood / Unknown 07/04/2025 4:19 PM CDT 07/04/2025 4:19 PM CDT us Adei [employer] DO URINE Final Result Performing Organization Address City/[facility]/ZIP Co de Phone Number [facility] [address] [place] [address], [place] * URINE CULTURE [[id number]] (07/04/2025 4:19 PM CDT) CULTURE <10,000 CFU/mL multiple organisms 07/06/2025 9:01 AM CDT [facility] Urine URINE SPECIMEN / Unknown Non-Blood / Unknown 07/04/2025 4:19 PM CDT 07/04/2025 4:19 PM CDT us Adei Shaqra DO MICROBIOLOGY Final Result [facility] [address] [place] [address], [place] * XR DEXA BONE DENSITY 2 SITES (04/29/2009) Anatomical Region Laterality Modality Spine, HIPS, HIPL, HIPR Bone Den sitometry Joe King Esperanza DO DEXA Final Res ult from Last 3 Months or Most Recently Relevant to Health Maintenance Insurance MEDICARE PART B HB ONLY MEDICARE PART A HB ONLY [facility] [place] BLUE MR PB ONLY [employer] [place] [place] BLUE HB ONLY MEDICARE PART B HB ONLY MEDICARE [facility] Advance Directives * Full Code (Latest Code [...] 12:40 PM 06/01/2007 2:52 PM Care Teams College [employer] Business Manager Relationship Specialty Start Date End Date Joann Motta DO [address] [place] [address] PCP - General Family Practice 03/01/24 Zachariah Porter MD [address] [phone] Nephrology 07/17/25 [place] Nephrology 07/17/25
--- OUTSIDE RECORDS SUMMARY | 2025-08-03 09:22 | XMS_ITS | Clinical Summary ---
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 [place] continues to confirm no change 2019 Arthritis [...] in an abandoned building, in an overnight assisted, or couch-surfing.) Yes 06/10/2024 Are you worried [...] on file Legal Sex Female 3:20 AM STUD SETTER Gender Identity Not on file Sexual Orientation [...] WELLNESS VISIT 01/05/2023 01/05/2022 DEXA 04/29/2024 04/29/2009 BMP 09/11/2024 06/12/2024, 05/28, 02/18/2024, Additional history exists PHQ-2 (once per calendar year) 2024 HEMOGLOBIN 12/09/2024 06/11/2024, 02/17/2024 TSH W/FREE T4 REFLEX 02/16/2025 02/17/2024 COVID-19 VACCINE ( - season) 2025 INFLUENZA VACCINE (#1) 2025 6, 06/24/2015, 07/17/2014, Additional history exists PNEUMOCOCCAL VACCINE 50+ YEARS Completed 04/20/2017, 09/15/2005 URINALYSIS Completed 02/18/2024 HPV VACCINE (No Doses Required) Completed MENINGITIS VACCINE Aged Out No longer eligible based on patient's age to complete this topic Medical Devices Implanted Type Area Vice President Of Communications Device Identifier Shelf Expiration Date Model / Serial / Lot Stent Ureteral Polaris Ultra [id number] - [id number] Implanted:Qty : 1 on 06/10/2024 by Keenan Sharpe MD at [facility] Stent Right: Urethra [employer] [id number] 12/12/2026 [id number] Procedures Procedure Name Priority Date/Time Associated Diagnosis [...] Basic metabolic panel (06/12/2024 8:40 AM CDT) [facility] Sodium 138 135 - 145 mmol/L 06/12/2024 9:14 AM CDT LABORATORY Potassium 4.2 3.4 - 5.3 mmol/L 06/12/2024 9:14 AM CDT LABORATORY Chloride 104 98 - 107 mmol/L 06/12/2024 9:14 AM T LABORATORY Carbon Dioxide (CO2) 24 22 - 29 mmol/L 06/12/2024 9:14 AM [facility] Anion Gap 10 7 - 15 mmol/L 06/12/2024 9:14 AM T LABORATORY Urea Nitrogen 36.3(H) 8.0 - 23.0 mg/dL 06/12/2024 9:14 AM T LABORATORY Creatinine 1.89(H) 0.51 - 0.95 mg/dL 06/12/2024 9:14 AM T LABORATORY GFR Estimate 26(L) >60 mL/min/1.7 3m2 06/12/2024 9:14 AM [facility] Comment:eGFR calculated usin 2020 CKD-EPI equation. [...] - BLOOD ORDERABLE S Final Result LABORATORY [facility] [address] floor, [address] [place] [address], [place] [phone] * (ABNORMAL) CBC with platelets (06/11/2024 7:03 AM CDT) [facility] WBC Count 9.8 4.0 - 11.0 10e3/uL [...] LAB - BLOOD ORDERABLES Final Result LABORATORY [facility] [address], [address] [place] [address], [place] [phone] * (ABNORMAL) UA Macroscopic with reflex to [...] mg/dL 02/18/2024 11:33 AM CDT LABORATORY Specific [place] Urine 1.011 1.003 - 1.035 02/18/2024 11:33 [...] ordered based on laboratory criteria Moy Renteria CERTIFIED OPTICIAN LAB - URINE ORDERA BLES Final Result LABORATORY [facility] [address], [address] [place] [address], [facility] [phone] * TSH with free T4 reflex (02/17/2024 11:05 AM CDT) TSH 1.38 0.30 - 4.20 uIU/mL 02/17/2024 2:02 PM CDT LABORATORY Blood BLOOD SPECIMEN / Unknown Venipuncture / Unknown 02/17/2024 11:05 AM CDT 02/17/2024 11:10 AM CDT Benjamin Moss DO LAB - BLOOD ORDERABLE S Final Result Performing Organization Address City/State/[facility] Co de Phone Number LABORATORY [facility] [address], [address] [place] [address], [facility] [phone] from Last 3 Months or Most Recently Relevant to Health Maintenance Insurance MEDICARE [facility] MEDICARE BC [place] BL[employer] Advance Directives For more information, please contact: [phone] * Full Code (Latest Code Status on [...] patie nt/ legal decision maker Care Teams Catering Cook Relationship Specialty Start Date End Date Irma Mandujano [place] [address] [place] [address] PCP - General Family Medicine 02/23/24
--- OUTSIDE RECORDS SUMMARY | 2025-08-03 09:22 | XMS_ITS | Data Portability ---
Author Organization [place] [facility] [place] [facility] Address [address] [place] [address] Care Team Providers Care Waste Disposal Leakage Tester Name Role Phone BRIAN HURD Referring Provider [phone] Assessment Encounter Date Assessment Date Assessment LastModified by Organization Details LastModified Time 01/18/2024 01/18/2024 83 Y/O FEMALE, HX OF RT HYDRONEPHROSIS , UTI, EARLY SEPSIS AND PLACEMENT OF A RT URETERAL STENT IN [place]. U/C POS WITH HORTON SENSITIVE ECOLI . NOW BACK TO BASELINE. C.T. 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 REVIEWED EXTENSIVE RECORDS, LABS FROM [place]. PLAN WILL SCHEDULE CYSTO, RT RETROGRADE AND [...] TIME 1 H. Not available 03/29/2024 12:46:22 07/05/2024 07/05/2024 84F with right UPJ obstruction. 1) Discussed options - chronic stent; with next stent change end August/september; this could be reasonable if frequency/urge ncy can be improved, will try Gemtesa for this for now; she will be in [place] in Aug/Sep and will need to arrange with local urologist - Robotic pyeloplasty; this may be best option if she continues to have stent bother; discussed low risk of stricture, need for stent 6 weeks post-op, low risk of urinoma - Nephrectomy; would avoid this as kidney has >20% function; if further reduced function ie <15% could consider this in future - she will call if she wants to pursue pyeloplasty or nephrectomy 2) Urinary freq/urgency - Gemtesa samples clyde Not available 07/05/2024 18:34:18 Plan of Treatment Reminders Order Date Submit [...] y scan No observ ation record ed. [facility] [address] [place], [address], 03/23/2024 16:15:30 06/29/20 24 06/29/2024 XR, kidne y + urete r + bladd er EXAM: XR, KIDNEY + URETER + BLADDE R LOCATI ON: [place] [facility] [place] DATE: 024 INDICA TION: Crossi ng vessel and strict ure of ureter w/o hydron ephros is COMPAR KURTIS: None. IMPRES HAYLEY: No discre te calcif icatio ns are seen overly ing the kidney s althou gh evalua tion is limite d due to bowel gas and stool. Right- sided ureter al stent is seen with proxim al tip overly ing the renal pelvis and distal tip overly ing the urinar y bladde r. Modera te to large stool burden is seen throug hout the colon sugges tive of consti pation . A few border line dilate d loops of small bowel are seen in the left hemiab domen measur ing up to 3.1 cm. Findin gs are nonspe cific but partia l obstru ction is in the differ ential diagno sis. Sug[facility] t clinic al correl ation. Diffus e osteop enia is presen t. Multil evel degene rative change s are seen in the spine. This report was electr onical ly interp reted by: Adan Mijares MD on 2023 at 10:45 [email or web address] [facility] [address], [place], [address], 07/04/2024 18:02:32 06/29/2006/29/2024 bladd er scan (PROC ) No observ ation record ed. BARCODE Not Available 2023 16:34:00 Result Notes Documentation Provider Name and Address Organization Details Recorded Time Xr, Kidney + Ureter + Bladder : EXAM: XR, KIDNEY + URETER + BLADDER LOCATION: [facility] [place] DATE: 06/29/2024 INDICATION: Crossing vessel and stricture of ureter w/o hydronephrosis COMPARISON: None. IMPRESSION: No discrete calcifications are seen overlying the kidneys although evaluation is limited due to bowel gas and stool. Right-sided ureteral stent is seen with proximal tip overlying the renal pelvis and distal tip overlying the urinary bladder. Moderate to large stool burden is seen throughout the colon suggestive of constipation. A few borderline dilated loops of small bowel are seen in the left hemiabdomen measuring up to 3.1 cm. Findings are nonspecific but partial obstruction is in the differential diagnosis. Suggest clinical correlation. Diffuse osteopenia is present. Multilevel degenerative changes are seen in the spine. This report was electronically interpreted by: Adan Mijares MD on 06/29/2024 at 10:45 Maddie Odell PA-C [address], [place], [address], [facility] - [facility] 07/04/2024 18:02:32 Problems Name Problem SNOMED Code Status Onset Date Resolution Date Notes Provider Name and Address Organization Details Recorded Time Obstruction of pelviureteric junction 54127527 Active 2023 Stone Sage MD [address] [place] [address],[address] [place] [address], [phone], [facility] 4 22:00:44 Hydronephrosis 32801904 Active 2023 Stone Sage MD [address] [place] [address],[facility] [address] [place] [address], [phone], [facility] 4 12:46:39 Essential hypertension 28130981 Active 2023 Stone Sage MD [address] [place] [address], [phone], [facility] 4 12:46:47 Problem Notes None recorded. Procedures Surgical History Date Name Laterality Status Provider Name and Address Organization Details Recorded Time Bladder Scan completed Una Campoverde [facility] 06/29/2024 12:00:33 Imaging Results None recorded. Procedure Notes None recorded. Medical Equipment None Reported. Allergies No known drug allergies Medications Name Sig Start Date Stop Date Status Note LastModified by Organization Details LastModified Time nebulizer tubing [id number] DIRECTED. REPLACE MASK AND TUBING EVERY 6 [...] AT BEDTIME IF NEEDED FOR MUSCLE SPASM. 07/05 completed Not Available Not Available Not Available albuterol sulfate 2.5 mg/3 mL (0.083 %) solution for nebulizatio n INHALE 3 ML (2.5 MG) VIA A NEBULIZER EVERY 4 HOURS IF NEEDED FOR COUGH. active Not Available Not Available No t Available amlodipine 5 mg tablet TAKE 2 TABLETS (10 MG) BY MOUTH ONCE DAILY. 07/05 completed Not Available Not Available Not Available tramadol 50 mg tablet TAKE 1 TABLET (50 MG) BY MOUTH TWO TIMES DAILY. 03/28 completed Not Available Not Available Not Available cefadroxil 500 mg capsule TAKE 1 CAPSULE (500 MG) BY MOUTH TWO TIMES DAILY FOR 7 DAYS. 07/05 completed Not Available Not Available Not Available [...] Not Available cephalexin 500 mg capsule TAKE 1 CAPSULE (500 MG) BY MOUTH THREE TIMES DAILY FOR 7 DAYS. 07/05 completed Not Available Not Available Not Available Synthroid 88 mcg tablet TAKE 1 TABLET (88 MCG) BY MOUTH BEFORE BREAKFAST . active Not Available Not Available No t Available hydrochloro thiazide 12.5 mg capsule TAKE ONE CAPSULE BY MOUTH ONE TIME DAILY 01/17 completed Not Available Not Available Not Available omeprazole 20 mg capsule,del ayed release TAKE ONE CAPSULE BY MOUTH EVERY DAY NEEDED. 01/17 completed Not Available Not Available Not Available hydrochloro thiazide 25 mg tablet TAKE 1/2 TABLET BY MOUTH ONCE DAILY. 07/05 completed Not Available Not Available Not Available [...] completed Not Available Not Available Not Available Gemtesa 75 mg tablet Take 1 tablet every day by oral route. 07/05 completed Not Available Not Available Not Available Vitals Date Recorded Body height Body mass index (BMI) Body weight Provider Name and Address Organization Details Last Updated DateTime 01/18/2024 160.02 cm 29.1 kg/m2 98715.15 g Stone Sage MD [address] [place] [address], [phone] [place] [address] 01/18/2024 16:03:19 Date Recorded Body height Body mass index (BMI) Body weight Provider Name and Address Organization Details Last Updated DateTime 03/28/2024 160.02 cm 29.1 kg/m2 68184.15 g Stone Sage MD [address] [place], [place] [address] [place], [place] [address] 03/28/2024 16:45:08 Date Recorded Body height Body mass index (BMI) Body weight Provider Name and Address Organization Details Last Updated DateTime 07/05/2024 157.48 cm 29.4 kg/m2 54382.37 g Keenan cheney MD, PHD [address] [place] [address], [phone], [facility] 07/05/2024 12:27:15 Social History Question Answer Notes LastModified by Organizat ion Details LastModified Time Tobacco Smoking Status Never Smoker Stone Sage MD [address] [place] [address], [phone], [facility] 01/18/2024 16:04:53 What Was The Date Of Your Most Recent Tobacco Screening? 07/05/2024 [email or web address] Information not available 07/05/2024 Sex: Unknown Functional Status Question Answer Note LastModified by Organization D etails LastModified Time What is your level of alcohol consumption? None Information not available 01/18/2024 Mental Status None recorded. Family History Nothing Reported. Medical History Condition Response Sexually Transmitted Infection N Diabetes N Bleeding Disorder N Other N High Blood Pressure N Kidney Stones N Cancer N Lung Disease N Depression N High Cholesterol N GERD/Acid Reflux N Heart Disease N Gynecological HistoryNo gynecological history recorded. Obstetrics History GPAL:G 0 P 0 0 0 0 Immunizations Vaccine Type Date Status Note Provider Nam e and Address Organization Details Recorded Time pneumococcal polysaccharide PPV23 5 completed Stone Sage MD [address] [place] [address],[address] [place] [address], [phone], [facility] 01/18/2024 16:03:41 Pneumococcal conjugate PCV 13 7 completed Stone Sage MD [address] [place] [address],[address], [phone], [facility] 01/18/2024 16:03:41 zoster live 8 renée Sage MD [address] [place] [address],[address], [phone], [facility] 01/18/2024 16:03:41 Influenza, high-dose, trivalent, PF 5 renée Sage MD [address] [place] [address],[address] [place] [address], [phone], [facility] 01/18/2024 16:03:41 Influenza, high-dose, trivalent, PF 4 completed Stone Sage MD [address] [place] [address],[address] [place] [address], [phone], [facility] 01/18/2024 16:03:41 Influenza, split virus, trivalent, preservative 3 completed Stone Sage MD [address] [place] [address],[address] [place] [address], [phone], [facility] 01/18/2024 16:03:41 Td (adult), 5 Lf tetanus toxoid, preservative free, adsorbed 8 renée Sage MD [address] [place] [address],[address] [place] [address], [phone], [facility] 01/18/2024 16:03:41 Past Encounters Encounter ID Performer Location Encounter Start Date Encounter Closed Date Diagnosis/Indication Diagnosis SNOMED-CT Code Diagnosis ICD10 Code Diagnosis IMO Codes Diagnosis Note [id number] Stone Sage MD [facility] [address] [place] [address] 01/18/2024 15:50:30 01/19/2024 11:20:30 Obstruction of pelviureteric junction 36836885 N13.5 [id number] Stone Sage MD [facility] [address] [place] [address] 03/28/2024 16:36:27 04/07/2024 11:48:32 Obstruction of pelviureteric junction 24859803 N13.5 Hydronephrosis 23263841 N13.30 Essential hypertension 21886290 I10 [id number] Stone Sage MD [facility] [address] [place] [address] 06/29/2024 11:10:12 06/30/2024 11:18:35 Obstruction of pelviureteric junction 07073430 N13.5 [id number] Keenan mcrae MD, PHD [facility] [address] [place] [address] 07/05/2024 12:20:04 07/06/2024 13:01:56 Obstruction of pelviureteric junction 11833053 N13.5 Hydronephrosis 43615514 N13.30 Essential hypertension 22265543 I10 Health Concerns Section Related Observation LastModified by Organization Detai ls LastModified Time None Recorded Concern Status LastModified by Organization Details LastModified Time None Recorded Advance Directives Directive None Recorded Payers Insurance Date Sequence Insurance Name Policy Number Policy Schaffer Covered Member ID Schaffer Member ID Guarantor Name 07/04/2024 2 [place] [email or web address] Sun J MacHacek [id number] Sun J MacHacek 07/10/2024 1 [facility] - [place]IC[place] COST [id number] Sun J MacHacek [id number] Sun J MacHacek 07/04/2024 2 [facility] [id number] Sun J MacHacek [id number] Sun Medrano Notes Date Note Type Note Provider Name and Address Organization Details Recorded Time 01/18/2024 text/html 83 YOF HERE FOR HYDRONEPHROSIS FOLLOWUP. WENT INTO ER, FOUND TO HAVE INFECTION AND SEVERE RIGHT HYDRONEPHROSIS. SUSPECTED RT UPJ OBSTRUCTION .STENT PLACED ABOUT 3 WEEKS AGO IN [place]. ECOLI UTI. SPENT 4 DAYS IN THE HOSPITAL..NOW BACK TO BASELINE. NO STENT DISCOMFORT. 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 HAD A STENT PLACED IN [place] AND RESPONDED WELL TO ANTIBIOTICS.. HOWEVER, SHE [...] RT FLANK PAIN, BUT HER B.P. HAS IMPROVED.SHE HAD A RENAL SCAN COMPLETED AND IT SHOWED ONLY 20% RT RENAL FUNCTION WITH SUSPECTED RT UPJ OBSTRUCTION. LEFT NORMAL AND 80% FUNCTION.REVIEWED OPTIONS IN DETAIL. Stone Sage MD [address] [place] [address],[address], [place], [address], [facility] 03/29/2024 12:47:05 06/29/2024 text/html Pt is here for PVRNurse visit completed by Una Snyder RN. Una linder [facility] 06/29/2024 14:56:56 07/05/2024 text/html 84F with right UPJ obstruction. Here with family. Some frequency/urgency and bladder spasms with stent. Had stent removed in February due to ?HTN. 06/10/24: right stent replaced due to pain and UTI Imagin03/15/24: NM Renal scan: 21.4%R, 78.6%L1: KUB: stent in position PSH: saul, appy, tubal Keenan Sharpe MD, PHD [address] [place] [address],[address], [place], [address], [place] [facility] 07/05/2024 18:34:27 OBGyn Episode No OBEpisode recorded.
[2025-08-03 09:25] LABS: Lactate* 0.8 mmol/L (0.5-1.9)
[2025-08-03 09:29] LABS: Hematocrit* 31.9 % (33.0-51.0); Hemoglobin* 10.1 gm/dL (12.0-16.0); Immature Granulocytes Abs Auto 0.01 K/uL (0.00-0.30); Immature Granulocytes Pct Auto 0.1 %; Lymphocytes Absolute Auto 2.35 K/uL (0.90-2.90); Mean Corpuscular HGB Conc 32 gm/dL (32-36); Mean Corpuscular Hemoglobin 29 pg (26-34); Mean Corpuscular Volume 92 fL (80-100); RDW Coefficient of Variation % 14.8 % (11.5-15.5); Red Blood Count* 3.47 m/uL (4.00-5.20); White Blood Count* 9.39 K/uL (4.50-11.00)
[2025-08-03 09:34] LABS: Slide Review Reflex No
[2025-08-03 09:43] LABS: Albumin* 3.7 g/dL (3.3-5.0); Chloride* 101 mmol/L (96-114)
[2025-08-03 09:44] LABS: Potassium* 4.6 mmol/L (3.6-5.1); Sodium* 133 mmol/L (135-149)
[2025-08-03 09:46] LABS: Blood Urea Nitrogen* 29 mg/dL (7-30); Creatinine* 1.4 mg/dL (0.5-1.5); Est. Creatinine Clearance* 28.57; Estimated Glomerular Filt Rate 37 ml/min
[2025-08-03 09:47] LABS: Alanine Aminotransferase* 10 U/L (4-35); Alkaline Phosphatase* 101 U/L (40-150); Anion Gap 10 mEq/L (7-15); Aspartate Amino Transferase* 22 U/L (12-35); Bilirubin Direct* 0.3 mg/dL (0.0-0.5); Bilirubin Total* 0.9 mg/dL (0.1-1.5); Calcium* 8.6 mg/dL (8.4-10.6); Carbon Dioxide* 22 mmol/L (20-32); Glucose* 103 mg/dL (60-115); Total Protein* 7.2 g/dL (6.0-8.3)
[2025-08-03 10:02] LABS: NT Pro B Type NatriureticPept* 2100 pg/mL (See Note)
[2025-08-03 10:04] LABS: Procalcitonin* 0.05 ng/mL (<0.50)
--- NOTE | 2025-08-03 10:16 | CRLHL7_ITS ---
For Patients: As a result of the Century Cures Act, medical imaging exams and procedure reports are released immediately into your electronic medical record. You may view this report before your referring provider. If you have questions, please contact your health care provider. EXAM: CT OF THE LEFT HIP, WITHOUT CONTRAST CLINICAL INDICATION: Abnormal x-ray. History of femoral reconstruction. COMPARISON STUDIES: 08/03/2025 radiographs. 06/10/2024 CT abdomen pelvis. TECHNICAL: Non-contrast CT of the pelvis with axial images. Sagittal oblique and coronal oblique reformatted images of the left hip created. FINDINGS: LEFT HIP: Chronic deformity in the lateral cortical margin of the proximal femoral diaphysis. There is a subtle linear area of decreased density with adjacent chronic osseous remodeling and beaking. Findings consistent with a chronic fracture deformity. The density of the linear component is suggestive of fracture healing possibly with a fibrous component although the density is less than the adjacent cortex. This region was not identified on the CT slices from the prior examination, however this region was visualized on the sales and service consultant in appears visible dating back to 2023. If there are clinical symptoms, further assessment could be performed with MRI to assess for any acute components or possibly a bone scan to assess for any active bony remodeling. Chronic bowing and deformity of the proximal femoral diaphysis most prominent distal to the chronic fracture. Moderate to advanced narrowing of the left hip joint space with hypertrophic change and subchondral cystic change. Chondrocalcinosis. No hip joint effusion. OSSEOUS STRUCTURES: Osteopenia. Postoperative changes in the proximal right femur. No evidence for chronic avascular necrosis. OTHER JOINT SPACES: Right Hip: Narrowing, hypertrophic change and subchondral cystic change. SI Joints: Moderate to advanced degenerative changes, left greater than right. No ankylosis. Lumbar Spine: Degenerative changes lower lumbar spine. MUSCLES AND TENDONS: No intramuscular mass or hematoma. No muscle atrophy. No retracted tendon tear. SOFT TISSUES: No subcutaneous edema, fluid collection or hematoma. INTRAPELVIC CONTENTS: No free fluid or hematoma. IMPRESSION: 1. Chronic deformity of the lateral cortical margin of the proximal femoral diaphysis corresponds with the radiographic finding. Findings appear visible on the 2023 CT sales and service consultant image. If there are clinical symptoms, further evaluation could be performed with an MRI or bone scan to assess for active components. 2. Chronic fracture deformity of the proximal left femur distal to the lateral cortical abnormality. 3. Advanced degenerative changes in the left hip. 4. Postoperative changes in the right femur. 5. Degenerative changes in the right hip, SI joints and lumbar spine. Please note that all CT scans at this facility use dose modulation, iterative reconstruction, and/or weight-based dosing when appropriate to reduce radiation dose to as low as reasonably achievable. Dictated by Ricky Gonsalves MD @ 08/03/2025 11:23:44 AM (Electronically Signed)
[2025-08-03 11:05] LABS: Appearance Urine Clear (Clear)
--- NOTE | 2025-08-03 11:35 | CRLHL7_ITS ---
For Patients: As a result of the Century Cures Act, medical imaging exams and procedure reports are released immediately into your electronic medical record. You may view this report before your referring provider. If you have questions, please contact your health care provider. INDICATION: left leg swelling/pain TECHNIQUE: Venous duplex ultrasound of the left lower extremity utilizing compression with farris-scale, color Doppler, and spectral Doppler imaging. COMPARISON: None FINDINGS: There is no sonographic evidence of deep vein thrombosis in the left common femoral, deep femoral, superficial femoral, popliteal, posterior tibial, peroneal, or contralateral common femoral veins. There is no visualized superficial vein thrombosis. The soft tissues are unremarkable. IMPRESSION: No deep vein thrombosis in the left lower extremity. Dictated by Kan Vega MD @ 08/03/2025 12:25:29 PM (Electronically Signed)
== END 2025-08-03 13:41 | disposition home or self-care (01) ==
PROVIDERS: Emergency Provider Family Medicine; PCP Student in an Organized Health Care Education/Training Program
DX: M25.552 Pain in left hip (principal); M79.671 Pain in right foot; M79.672 Pain in left foot
CPT/HCPCS: 36415; 73502; 73700; 80048; 80076; 81001; 83605; 83735; 83880; 84145; 84484; 85025; 86140; 87086; 93005; 93971; 94761; 96374; 99284; 99285; J1171

== ENCOUNTER 2025-09-24 08:48 | Emergency (ER) | payer MEDICARE, BC, SELFPAY ==
--- OUTSIDE RECORDS SUMMARY | 2025-01-27 03:00 | XMS_ITS ---
Author Organization [facility] Address [address] [place] [address] Care Team Providers Care Catalyst Plant Supervisor Name Role Phone Lars EASTON [place] Unavailable [phone] Eva Agarwal Unavailable Unavailab le Migration, Provider Unavailable Unavailable REASON FOR VISIT EMR-Breezy Encounters Encounter Location Date Provider Diagnosis [facility] [address] [place] [address] 01/27/2025 Provider Migration Plan Of Treatment Medication Medication Name Sig Start Date Stop Date Notes Levothyroxine Sodium 100 MCG Capsule Oral once a day 12/01/2019 12/04/2022 pt on lower dose Aspirin 81 81 MG Tablet Delayed Release Oral once a day 12/01/2019 12/04/2022 pt on full dose asa Aspirin 325 MG Tablet Oral once a day 12/04/2022 3 Discontinued TM Bumetanide 1 MG Tablet Oral once a day 12/04/2022 01/01/20 23 Discontinued TM Cephalexin 500 MG Capsule Oral 11/30/2022 12/31/2022 Discontinued TM amLODIPine Besylate 10 MG Tablet Oral 11/14/2022 12/31/2022 Discontinued TM Progress Notes * Sun ALEMANOB:06/1940 (85 yo F)Acc No.[id number]:01/27/2025 Patient:?LOVE Sun Tidwell :1940???Age:84 Y???Sex:FemalePhone:Address:[address] [place] [address], [address] * Refills Stop amLODIPine Besylate Tablet, 10 MG, Oral, 90 Stop Aspirin Tablet, 325 MG, Oral, 0, once a day Stop Bumetanide Tablet, 1 MG, Oral, 0, once a day Stop Cephalexin Capsule, 500 MG, Oral, 28 Stop Levothyroxine Sodium Capsule, 100 MCG, Oral, 0, once a day Stop Aspirin 81 Tablet Delayed Release, 81 MG, Oral, 0, once a day Subjective: * Chief Complaints: * E -Breezy * * Date:?
--- OUTSIDE RECORDS SUMMARY | 2025-01-28 03:00 | XMS_ITS ---
Author Organization [facility] Address [address] [place] [address] Care Team Providers Care Web Applications Administrator Name Role Phone Lars EASTON, [place] Unavailable [phone] Eva Agarwal Unavailable Unavailab le Migration, Provider Unavailable Unavailable REASON FOR VISIT EMR-Breezy Medications Medication SIG (Take, Route, Frequency, Duration) Notes Start Date End Date Status Synthroid 88 MCG Tablet Oral once a day 12/04/2022ctiveOndansetron 4 MG Tablet MhaoglkugztgroZhae11/09/2023ctive Sotalol HCl 80 MG TabletTake 0.5 tablets (40 mg total) by mouth every 12 (twelve) hours Oral once a day12/28/2022ctiveOmeprazole 20 MG Tablet Delayed Release DisintegratingOral as vypmag8312/11/2019ActiveLosartan Potassium 25 MG TabletOral once a day12/11/2019ActivetraMADol HCl 50 MG NhmnqlVqmg65/15/2023 ActiveXarelto 20 MG HvjlqmPoix81/27/2023ctivehydroCHLOROthiazide 12.5 MG Tablet Oral as roaceb6712/01/2019Active Social History Social History Additional DetailsCategorySocial InfoOptionsDetailsMigrated Social History Migrated Social History caffeine use, does not live alone, good exercise habits, no exercise habits, no physical disability, no tobacco use, not a current smoker, not using alcohol, not using drugs, smoking status : Never smoker Encounters Encounter Location Date Provider Diagnosis [facility] [address] [place] [address] 01/28/2025 Provider Migration Plan Of Treatment No Information Progress Notes * Sun ALEMANOB:07/ 06/1940 (85 yo F)Acc No.[id number]:01/28/2025 Patient:Sun RESTREPO :1940???Age:84 Y???Sex:FemalePhone:Address:[address] [place] [address], [address] Subjective: * Chief Complaints: * E MR-Breezy [...]
--- OUTSIDE RECORDS SUMMARY | 2025-08-27 13:15 | XMS_ITS | Encounter Summary ---
Author Organization [facility] Address [address] [place] [address] Care Team Providers Care Immigration Case Worker Name Role Phone Elsewhere, Pcp Primary Care Provider Unavailabl e Reason for Visit * ReasonOnset DateCommentsBlood Rnqlmndf78/01/2025 Encounter Details DateTypeDepartmentCare Team (Latest Contact Info)Shxrneblazl14/01/2025 1:15 PM CSTClinical Communication Virtual Review in [place], [place] [address] [place] [address] Blood Pressure Social History Tobacco UseTypesPacks/DayYears UsedDateSmoking Tobacco: NeverSmokeless Tobacco: Never Tobacco Cessation:Counseling Given: Not Answered Alcohol UseStandard Drinks/WeekCommentsNever0 (1 standard drink = 0.6 oz pure alcohol)[facility] UtilitiesAnswerDate RecordedIn the past 12 months has the [employer], gas, oil, or water [employer] threatened to shut off services in your home?No 03/06/2025Humiliation, Afraid, Rape, and Kick questionnaireAnswerDate Recorded Within the last year, have you been afraid of your partner or ex-partner?No 03/06/2025Within the last year, have you been humiliated or emotionally abused in other ways by your partner or ex-partner?No03/06/2025Within the last year, have you been kicked, hit, slapped, or otherwise physically hurt by your partner or ex-partner?No03/06/2025Within the last year, have you been raped or forced to have any kind of sexual activity by your partner or ex-partner?No03/06/2025 Hunger Vital SignAnswerDate RecordedWithin the past 12 months, you worried that your food would run out before you got the money to buymore.Never true03/06/2025 Within the past 12 months, the food you bought just didn't last and you didn't have money to get more.Never true03/06/2025PRAPARE - TransportationAnswerDate RecordedIn the past 12 months, has lack of transportation kept you from medical appointments or from getting medications?No03/06/2025In the past 12 months, has lack of transportation kept you from meetings, work, or from getting things needed for daily living?No03/06/2025Housing StabilityAnswerDate RecordedWhat is your living situation today?I have a steady place to live03/06/2025Education AnswerDate RecordedWhat is the highest level of school you have completed or the highest degree you have received?Associate degree: occupational, technical, or vocational gkexhul4705/27/2020CommentsNoSex and Gender InformationValue Date RecordedSex Assigned at WprccGqwusa77/26/2025 10:16 AM CDTLegal SexFemale 10/29/2016 2:16 PM CSTGender BpmkdpurTphulv97/26/2025 10:16 AM CDTSexual RrlbutffbwtDdbevhmg12/26/2025 10:16 AM CDTdocumented as of this encounter Plan of Treatment DateTypeDepartmentCare Team (Latest Contact Info)Abuenpxtbod32/03/2026 8:00 AM CSTProcedure visit Department of Urology in [place], [place] [address] [place] [phone] Rupert Loving M.D. [address] [place] [address] documented as of this encounter Visit Diagnoses Not on filedocumented in this encounter Care Teams Team MemberRelationshipSpecialtyStart DateEnd Date Elsewhere, Pcp PCP - GeneralInternal Medicine04/18/25documented as of this encounter
--- OUTSIDE RECORDS SUMMARY | 2025-08-30 08:43 | XMS_ITS | Encounter Summary ---
Author Organization [facility] Address [address] [place] [address] Care Team Providers Care Drug Clerk Name Role Phone Elsewhere, Pcp Primary Care Provider Unavailabl e Encounter Details DateTypeDepartmentCare Team (Latest Contact Info)Lydphjkklrj46/04/2025 8:43 AM TALENT ACQUISITION CONSULTANT - 08/30/2025 9:41 AM CSTHospital Encounter Department of Laboratory Medicine and Pathology, [facility], in [place], [place] [address] [place] [address] Vicki Rubio M.D., M.S. [address] [place] [phone] Hydronephrosis Discharge Disposition: Home or Self Care Social History Tobacco UseTypesPacks/DayYears UsedDateSmoking Tobacco: NeverSmokeless Tobacco: NeverAlcohol UseStandard Drinks/WeekCommentsNever0 (1 standard drink = 0.6 oz pure alcohol)[facility] UtilitiesAnswerDate RecordedIn the past 12 months has the [employer], gas, oil, or water [employer] threatened to shut off services in your [...] 05/27/2020CommentsNoSex and Gender InformationValueDate RecordedSex Assigned at UsjhbCiirim68/26/2025 10:16 AM CDTLegal IrrRikbwf29/02/2017 2:16 PM CSTGender UelikgveEcliue11/26/2025 10:16 AM CDTSexual OrientationStraight 02/19/2025 10:16 AM CDTdocumented as of this encounter Medications at Time of Discharge MedicationSigDispense QuantityRefillsLast FilledStart DateEnd Date acetaminophen (TylenoL 8 Hr) 650 mg ER tablet Take 1,300 mg by mouth every 8 (eight) hours. acetaminophen (TylenoL) 500 mg tablet Take 2 tablets (1,000 mg total) by mouth every 6 (six) hours as needed for pain. 09/14/2025 albuterol 90 mcg/actuation inhaler Inhale 2 puffs every 4 (four) hours as needed for shortness of breath or wheezing.04/30/2025 Breyna 80-4.5 mcg/actuation inhaler Inhale 2 puffs [...] 4 (four) times a day as needed.04/30/2025 levothyroxine (Synthroid) 88 mcg tablet Take 88 mcg by mouth daily before morning meal.11/22/2022 LORazepam (Ativan) 0.5 mg tablet Take 0.5 [...] Plan of Treatment DateTypeDepartmentCare Team (Latest Contact Info)Hcambigcfph55/03/2026 8:00 AM CSTProcedure visit Department of Urology in [place], [place] [address] [place] [address] Rupert Loving M.D. [address] [place] [address] documented as of this encounter Procedures Procedure NamePriorityDate/TimeAssociated DiagnosisCommentsCBC WITHOUT DIFFERENTIAL, EYjlpcdk47/04/2025 9:00 AM TALENT ACQUISITION CONSULTANT Hydronephrosis TYPE AND TFXKENEokuhjn18/04/2025 9:00 AM TALENT ACQUISITION CONSULTANT Hydronephrosis BASIC METABOLIC PANEL, S/VCbzzkms34/04/2025 9:00 AM TALENT ACQUISITION CONSULTANT Hydronephrosis documented in this encounter Results * Type and Screen (with Reflex Antibody ID) (08/30/2025 9:00 AM TALENT ACQUISITION CONSULTANT)Component ValueRef RangeTest MethodAnalysis TimePerformed AtPathologist SignatureABORhO PosNot tvshptrwdi88/04/2025 9:35 AM CSTETRMAntibody ScreenNegativeNegative 08/30/2025 9:49 AM CSTETRMType & Screen Lpfoavvnfc50/07/2025 23:5908/30/2025 9:35 AM CSTETRMTesting Location[place] DEFAULT 08/30/2025 9:09 AM CSTETRMSpecimen (Source)Anatomical Location / Laterality Collection Method / VolumeCollection TimeReceived TimeBlood (Blood, Venous) 08/30/2025 9:00 AM CST08/30/2025 9:09 AM TALENT ACQUISITION CONSULTANT Narrative Authorizing ProviderResult TypeResult StatusCharlotte Lizzy Rubio M.D., M.S.LAB BLOOD BANK TEST ORDERABLESFinal ResultPerforming OrganizationAddress City/State/ZIP CodePhone Number [facility] [address] [place] [address], [facility] ETRM [facility] [address] [place] [address] * (ABNORMAL) Basic Metabolic Panel (08/30/2025 9:00 AM TALENT ACQUISITION CONSULTANT)ComponentValueRef RangeTest MethodAnalysis TimePerformed AtPathologist SignaturePotassium, S5.4 (H)3.6 - 5.2 mmol/L110/31/2024 10:14 AM CSTDTLSodium, [id number] - 145 mmol/L 08/30/2025 10:14 AM CSTDTLChloride, J11345 - 107 mmol/L110/31/2024 10:14 AM TALENT ACQUISITION CONSULTANT DTLBicarbonate, S2422 - 29 mmol/L110/31/2024 10:14 AM [...] (Blood, Venous)08/30/2025 9:00 AM CST08/30/2025 9:57 AM TALENT ACQUISITION CONSULTANT Narrative Authorizing ProviderResult TypeResult StatusCharlotte Lizzy Rubio M.D., M.S.LAB BLOOD ADD-ONFinal ResultPerforming OrganizationAddressCity/State/ZIP CodePhone Number [facility] [address] [place] [address], [facility] DTL [facility] [address] [place] [address] * (ABNORMAL) CBC without Differential (08/30/2025 9:00 AM TALENT ACQUISITION CONSULTANT)ComponentValueRef RangeTest MethodAnalysis TimePerformed AtPathologist WjsufqyubWcfselpcuc11.4 (L)11.6 - 15.0 g/dL08/30/2025 9:55 AM CVJTKENqyplbstua78.6(L)35.5 - 44.9 % 08/30/2025 9:55 AM CSTDTLErythrocytes3.57(L)3.92 - 5.13 x10(12)/L12/12/2024 9:55 AM AUOQKEMOT84.378.2 - 97.9 fL08/30/2025 9:55 AM CSTDTLRBC Distrib Width 14.612.2 - 16.1 %08/30/2025 9:55 AM CSTDTLPlatelet Ilbsy669(H)157 - 371 x10(9)/L110/31/2024 9:55 AM CSTDTLLeukocytes7.53.4 - 9.6 x10(9)/L110/31/2024 9:55 AM CSTDTLSpecimen (Source)Anatomical Location / LateralityCollection Method / VolumeCollection TimeReceived TimeBlood (Blood, Venous)08/30/2025 9:00 AM CST08/30/2025 9:21 AM TALENT ACQUISITION CONSULTANT Narrative Authorizing ProviderResult TypeResult StatusCharestefany Rubio M.D., M.S.LAB BLOOD ADD-ONFinal ResultPerforming OrganizationAddressCity/State/ZIP CodePhone Number [facility] [address] [place] [address], [facility] DTL [facility] [address] [place] [address] documented in this encounter Visit Diagnoses Diagnosis Hydronephrosis documented in this encounter Care Teams Team MemberRelationshipSpecialtyStart DateEnd Date Elsewhere, Pcp PCP - GeneralInternal Medicine04/18/25documented as of this encounter
--- OUTSIDE RECORDS SUMMARY | 2025-08-30 08:43 | XMS_ITS | Encounter Summary ---
Author Organization [facility] Address [address] [place] [address] Care Team Providers Care Congressional Representative Name Role Phone Elsewhere, Pcp Primary Care Provider Unavailabl e Encounter Details DateTypeDepartmentCare Team (Latest Contact Info)Runlyyekjei49/04/2025 8:43 AM HEALTH EDUCATION COORDINATOR - 08/30/2025 9:41 AM CSTHospital Encounter Department of Laboratory Medicine and Pathology, [facility], in [place], [place] [address] [place] [address] Vicki Rubio M.D., M.S. [address] [place] [phone] Hydronephrosis Discharge Disposition: Home or Self Care Social History Tobacco UseTypesPacks/DayYears UsedDateSmoking Tobacco: NeverSmokeless Tobacco: NeverAlcohol UseStandard Drinks/WeekCommentsNever0 (1 standard drink = 0.6 oz pure alcohol)[facility] UtilitiesAnswerDate RecordedIn the past 12 months has the [place], gas, oil, or water [employer] threatened to shut off services in your [...] 05/27/2020CommentsNoSex and Gender InformationValueDate RecordedSex Assigned at MyrkjZtzrdp04/26/2025 10:16 AM CDTLegal JmtZsooun83/02/2017 2:16 PM CSTGender ClncvhmhYmpkcn94/26/2025 10:16 AM CDTSexual OrientationStraight 02/19/2025 10:16 AM [...] Plan of Treatment DateTypeDepartmentCare Team (Latest Contact Info)Znwuotkuuxm57/03/2026 8:00 AM CSTProcedure visit Department of Urology in [place], [place] [address] [place] [address] Rupert Loving M.D. [address] [place] [address] documented as of this encounter Procedures Procedure NamePriorityDate/TimeAssociated DiagnosisCommentsBACTERIAL CULTURE, AEROBIC + SUSC, ILTVMDcrgtjw61/04/2025 9:09 AM HEALTH EDUCATION COORDINATOR Hydronephrosis documented in this encounter Results * (ABNORMAL) Bacterial Culture, Aerobic + Susceptibility, Urine (08/30/2025 9:09 AM HEALTH EDUCATION COORDINATOR)ComponentValueRef RangeTest MethodAnalysis TimePerformed AtPathologist SignatureUrine CultureENTEROBACTER CLOACAE [...] GENERAL ORDERABLESFinal ResultPerforming OrganizationAddress City/State/ZIP CodePhone Number [facility] [place] [address] [place] [address], [facility] DTL [facility] [address] [place] [address] documented in this encounter Visit Diagnoses Diagnosis Hydronephrosis documented in this encounter Care Teams Team MemberRelationshipSpecialtyStart DateEnd Date Elsewhere, Pcp PCP - GeneralInternal Medicine04/18/25documented as of this encounter
--- OUTSIDE RECORDS SUMMARY | 2025-08-30 09:43 | XMS_ITS | Encounter Summary ---
Author Organization [facility] Address [address] [place] [address] Care Team Providers Care Trim Carpenter Name Role Phone Elsewhere, Pcp Primary Care Provider Unavailabl e Reason for Referral * Outpatient (Routine) - ClosedSpecialtyDiagnoses / ProceduresReferred By ContactReferred To ContactRadiology Diagnoses Hydronephrosis Procedures IR Nephrostomy Tube Exchange Right Vicki Rubio M.D., M.S. 200 [place] [address] Phone: tel: fax: [facility] Referral IDStatusReasonStart DateExpiration DateVisits RequestedVisits [id number]/27/20251/27/202711 [place] CLERK Reason for Visit * Outpatient (Routine) - ClosedSpecialtyDiagnoses / ProceduresReferred By ContactReferred To ContactRadiology Diagnoses Hydronephrosis Procedures IR Nephrostomy Tube Exchange Right Vicki Rubio M.D., M.S. [address] [place] [address] Phone: tel: fax: [facility] Referral IDStatusReasonStart DateExpiration DateVisits RequestedVisits [id number]/27/20251/27/202711 Encounter Details DateTypeDepartmentCare Team (Latest Contact Info)Gmxfsicbqfd05/04/2025 9:43 AM DEPUTY COUNTY CLERK - 08/30/2025 11:45 AM CSTHospital Encounter Department of Radiology, [facility], in [place], [place] [address] [place] [phone] Vicki Rubio M.D., M.S. 200 [place] [phone] Pelon Armas M.D. 200 [place] [phone] Hydronephrosis Discharge Disposition: Home or Self Care Social History Tobacco UseTypesPacks/DayYears UsedDateSmoking Tobacco: NeverSmokeless Tobacco: NeverAlcohol UseStandard Drinks/WeekCommentsNever0 (1 standard drink = 0.6 oz pure alcohol)[facility] UtilitiesAnswerDate RecordedIn the past 12 months has the [employer], gas, oil, or water [employer] threatened to shut off services in your [...] 05/27/2020CommentsNoSex and Gender InformationValueDate RecordedSex Assigned at XrwwpDewaqx78/26/2025 10:16 AM CDTLegal SstMhigty06/02/2017 2:16 PM CSTGender PixaxvebGkzybb90/26/2025 10:16 AM CDTSexual OrientationStraight 02/19/2025 10:16 AM CDTdocumented as of this encounter Last Filed Vital Signs Vital SignReadingTime TakenCommentsBlood Galszlqb263/9708/30/2025 11:30 AM DEPUTY COUNTY CLERK Qypzg927008/30/2025 11:30 AM HDDNzinhafzisr38.5 ??C (97.7 ??F)08/30/2025 10:49 AM CSTRespiratory Rate--Oxygen Ncugkakihs80%08/30/2025 11:30 AM CSTInhaled Oxygen Concentration--Weight--Height--Body Mass Index--documented in this encounter Functional Status * Patient VerificationQuestionAnswerDate of AssessmentAuthorBlood transfusion or in past 5 months?No08/30/2025 10:53 AM Kate Garcia R.N. * PainQuestionAnswerDate of AssessmentAuthorPain PcobuwfmGnajz59/04/2025 11:09 AM Asetr Prince R.N.Pain LlppvyfvnzfPkktq63/04/2025 11:09 AM Aster Prince R.N.Pain TypeAcute pain08/30/2025 11:09 AM Aster Prince R.N. * Gusman Modified Baseline ComparisonQuestionAnswerDate of AssessmentAuthor Modified Gusman Score return to baseline?Yes08/30/2025 11:30 AM Aster Prince R.N. * Advanced DirectiveQuestionAnswerDate of AssessmentAuthorAdvance Directive Patient does not have advance directive, does not want watcvbyjzlt28/04/2025 10:49 AM Kate Garcia R.N. * NPOQuestionAnswerDate of AssessmentAuthorTime of last ohhapl8923990/04/2025 10:48 AM Kate Garcia R.N.Date of last wlgony9619026/04/2025 10:48 AM Kate Garcia R.N.Date of last gsmys9456226/04/2025 10:48 AM Kate Tinsley R.N.Time of last ikfmb0523991/04/2025 10:48 AM Kate Garcia R.N. * Tobacco useQuestionAnswerDate of AssessmentAuthorHave you smoked any form of tobacco in the last 30 days?No08/30/2025 10:53 AM Kate Garcia R.N. * Modified Gusman ScoreQuestionAnswerDate of AssessmentAuthorMotor Activity2 08/30/2025 11:30 AM Aster Prince R.N.Pbnbrutbqim107/04/2025 11:30 AM Aster Prince R.N.Ftcygabygcsxk617/04/2025 11:30 AM Aster Prince R.N.Oxygen Vkwhkkkpyq514/04/2025 11:30 AM Aster Prince R.N.Modified Gusman Jfhzd3556/04/2025 11:30 AM Aster Prince R.N.Systolic BP2 08/30/2025 11:30 AM Aster Prince R.N. * Fall RiskQuestionAnswerDate of AssessmentAuthorHave you fallen within the last year or do you fear you might fall?No08/30/2025 10:49 AM Kate Garcia R.N.Do you use an assisted device to walk? (Walker, cane, wheelchair, crutch) Yes08/30/2025 10:49 AM Kate Garcia R.N. * Pain AssessmentQuestionAnswerDate of AssessmentAuthorPain Score0 - No pain 08/30/2025 11:38 AM Kate Garcia R.N. * Lozano Agitation Sedation Scale (RASS)AnswerDate of AssessmentAuthor0 08/30/2025 11:38 AM Kate Garcia R.N. * Exparel?? / Zynrelef??QuestionAnswerDate of AssessmentAuthorHave you had a procedure outside of [facility] in the past 4 days? (Select Yes if the patient iswearing an Exparel?? or a Zynrelef?? armband.)No08/30/2025 10:53 AM Kate Garcia R.N. documented as of this encounter Medications at [...] (50 mg zinc) capsule 220 mg daily. sulfamethoxazole-trimethoprim (Bactrim DS) 800-160 mg per tablet Indications:Obstruction Kidney,Chronic Kidney Disease (CKD), Stage 3b Glomerular Filtration Rate (GFR) 30 To 44 (HCC),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Take 1 tablet by mouth as directed. Take 1 tablet 1-2 hours prior to nephrostomy tube exchanges. 6 tablet 10:14 AM CDT06/04/2025 albuterol 2.5 mg /3 mL nebulizer solution Inhale 2.5 mg every 4 (four) hours as needed. cyclobenzaprine (FlexeriL) 10 mg tablet Take 10 mg by mouth at bedtime as needed. oxyCODONE (Roxicodone) 5 mg immediate release tablet Take 5 mg by mouth every 4 (four) hours as needed.documented as of this encounter Plan of Treatment DateTypeDepartmentCare Team (Latest Contact Info)Bwgeputniwj77/03/2026 8:00 AM CSTProcedure visit Department of Urology in [place], [place] [address] [place] [address] Rupert Loving M.D. [address] [place] [address] documented as of this encounter Procedures Procedure NamePriorityDate/TimeAssociated DiagnosisCommentsIR NEPHROSTOMY TUBE EXCHANGE RIGHTRAD - Routine (most inpatients and all outpatients)08/30/2025 11:29 AM DEPUTY COUNTY CLERK Hydronephrosis documented in this encounter Results * IR Nephrostomy Tube Exchange Right (08/30/2025 11:29 AM DEPUTY COUNTY CLERK)Anatomical Region LateralityModalityGenito Urinary, Vascular Interventional RST LOS, Vascular Interventional ARZ LOS, Vascular Interventional FLA LOSRightX-Ray Angiography Specimen (Source)Anatomical Location / LateralityCollection Method / Volume Collection TimeReceived Time Impressions 08/30/2025 1:25 PM DEPUTY COUNTY CLERK Routine exchange of the 10-Thai right percutaneous nephrostomy tube. Recommend routine exchange in approximately 12 weeks. NR Narrative 08/30/2025 1:25 PM DEPUTY COUNTY CLERK EXAM: IR NEPHROSTOMY TUBE EXCHANGE RIGHT CLINICAL HISTORY: ??Routine right nephrostomy tube exchange. TECHNIQUE: ??The patient was placed prone on the fluoroscopy table, and the right flank was preppedand draped in standard sterile fashion. 1% lidocaine was used for local anesthesia. A sql database developer image demonstrated relatively unchanged position of the 10-Thai right nephrostomy tube. Limited antegradenephrostogram was performed to confirm satisfactory position. Indwelling tube was removed over a guidewire and a new, 10-Thai by 25 cm locking-loop drain was formed centrally in the right renal pelvis. Postplacement imaging demonstrated satisfactory position and function. Drain anchored with 2-0 Prolene and returned to bag drainage. No immediate complication. PREPROCEDURE: ??Patient seen, evaluated, and history reviewed. Discussed risks, benefits, alternatives for procedure, and obtained informed consent. Patient understands information and questions answered. Immediately prior to starting the procedure, in the presence of the assisting personnel, procedural pause was conducted to verify correct patient identity and verification of procedure to be performed, and as applicable, correct side and site, correct patient position, availability of implants, special equipment or special requirements, and all image and specimen identification data. The roles and responsibilities of care team members, residents, and fellows were discussed. Procedure Note Pelon Armas M.D. - 08/30/2025 EXAM: IR NEPHROSTOMY TUBE EXCHANGE RIGHT CLINICAL HISTORY: Routine right nephrostomy tube exchange. TECHNIQUE: The patient was placed prone on the fluoroscopy table, and theright flank was prepped and draped in standard sterile fashion. 1%lidocaine was used for local anesthesia. A sql database developer image demonstratedrelatively unchanged position of the 10-Thai right nephrostomy tube.Limited antegrade nephrostogram was performed to confirm satisfactoryposition. Indwelling tube was removed over a guidewire and a new,10-Thai by 25 cm locking-loop drain was formed centrally in the rightrenal pelvis. Postplacement imaging demonstrated satisfactory position andfunction. Drain anchored with 2-0 Prolene and returned to bag drainage. Noimmediate complication. PREPROCEDURE: Patient seen, evaluated, and history reviewed. Discussedrisks, benefits, alternatives for procedure, and obtained informedconsent. Patient understands information and questions answered.Immediately prior to starting the procedure, in the presence of theassisting personnel, procedural pause was conducted to verify correctpatient identity and verification of procedure to be performed, and asapplicable, correct side and site, correct patient position, availabilityof implants, special equipment or special requirements, and all image andspecimen identification data. The roles and responsibilities of care teammembers, residents, and fellows were discussed. IMPRESSION: Routine exchange of the 10-Thai right percutaneous nephrostomy tube.Recommend routine exchange in approximately 12 weeks. NR Authorizing ProviderResult TypeResult StatusCharestefany Rubio M.D., M.S.IMG IR PROCEDURESFinal Result documented in this encounter Visit Diagnoses Diagnosis Hydronephrosis documented in this encounter Administered Medications Medication OrderMAR ActionAction DateDoseRateSite iohexoL 300 mg iodine/mL solution (Omnipaque) As needed, Starting on Juliet 08/30/25 at 1129, Intra-Op Given08/30/2025 11:29 AM CST30 mL lidocaine-sodium bicarbonate (buffered) 0.9%-0.84% injection infiltration, As needed, Starting on Juliet 08/30/25 at 1129, Intra-Op Given08/30/2025 11:29 AM CST5 mLdocumented in this encounter Active and Recently Administered Medications Times are shown in DEPUTY COUNTY CLERK.Medication Order iohexoL 300 mg iodine/mL solution (Omnipaque) (COMPLETED) As needed, Starting on Juliet 08/30/25 at 1129, Intra-Op * 1129 (Given - Provider: Pelon Armas M.D.) lidocaine-sodium bicarbonate (buffered) 0.9%-0.84% injection (COMPLETED) infiltration, As needed, Starting on Juliet 08/30/25 at 1129, Intra-Op * 1129 (Given - Provider: Pelon Armas M.D.) documented in this encounter Care Teams Team MemberRelationshipSpecialtyStart DateEnd Date Elsewhere, Pcp PCP - GeneralInternal Medicine04/18/25documented as of this encounter
--- OUTSIDE RECORDS SUMMARY | 2025-08-30 14:30 | XMS_ITS | Encounter Summary ---
Author Organization [facility] Address [address] [place] [address] Care Team Providers Care Supervisor Carbon Electrodes Name Role Phone Elsewhere, Pcp Primary Care Provider Unavailabl e Reason for Visit * Outpatient (Routine) - ClosedSpecialtyDiagnoses / ProceduresReferred By ContactReferred To ContactAnesthesiology Diagnoses Hydronephrosis Vicki Rubio M.D., M.S. [address] [place] [phone] Phone: tel: fax: [facility] Referral IDStatusReasonStart DateExpiration DateVisits RequestedVisits [id number]/27/20254/ Encounter Details DateTypeDepartmentCare Team (Latest Contact Info)Zgmyuuflcuz34/04/2025 2:30 PM CSTComprehensive Visit Preoperative Evaluation Center in [place], [place] [address] [place] [phone] Vicki Rubio M.D., M.S. [address] [place] [phone] Yoseph Brown M.D. [address] [place] [phone] Preanesthetic Medical Exam (Primary Dx); Hypertensive [...] (1 standard drink = 0.6 oz pure alcohol)[facility] UtilitiesAnswerDate RecordedIn the past 12 months has the [employer], gas, oil, or water [employer] threatened to shut off services in your [...] 05/27/2020CommentsNoSex and Gender InformationValueDate RecordedSex Assigned at UbtuxMnrqhq15/26/2025 10:16 AM CDTLegal OzgDcqtmg32/02/2017 2:16 PM CSTGender CartownyLfouox29/26/2025 10:16 AM CDTSexual OrientationStraight 02/19/2025 10:16 AM [...] risk RCRI: 0.9% Fleming Score (Risk of [place] or arrest within 30 days): 2.3% DASI: [...] history of this in the past 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 Patient was sent to the ED via EMS. The above plan of care was discussed with Dr. Lombardo. Yoseph Brown M.D. Internal Medicine PGY-3 Cosigned by Estela Lombardo M.D., M.S. at 08/30/2025 4:48 PM CIRCULATION DIRECTOR ULATION DIRECTOR ULATION DIRECTOR Associated attestation - Estela Lombardo M.D., M.S. - 08/30/2025 4:48 PM CIRCULATION DIRECTOR ASSESSMENT / PLAN I have discussed the care of Sun Tidwell Samantha with Dr. Yoseph Brown M.D. and agree with the documentation dated 08/30/2025. documented in this encounter Plan of Treatment DateTypeDepartmentCare Team (Latest Contact Info)Ireqsbavvlk30/03/2026 8:00 AM CSTProcedure visit Department of Urology in [place], [place] [address] [place] [phone] Rupert Loving M.D. [address] [place] [phone] documented as of this encounter Visit Diagnoses [...]
--- OUTSIDE RECORDS SUMMARY | 2025-08-30 15:53 | XMS_ITS | Encounter Summary ---
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 [id number] - 1150 mOsm/kg08/30/2025 7:02 PM CSTDTLSpecimen (Source)Anatomical Location / LateralityCollection Method / VolumeCollection TimeReceived TimeUrine 08/30/2025 5:51 PM CST08/30/2025 6:32 PM PICC NURSE Narrative Authorizing ProviderResult TypeResult StatusSergo Hogan M.D.LAB URINE ORDERABLESFinal ResultPerforming OrganizationAddressCity/State/ZIP CodePhone Number [facility] [address] [place] [address], [facility] [address] [place] [address] * Urinalysis, with Microscopic: Urine, Midstream (08/30/2025 5:51 PM PICC NURSE) ComponentValueRef RangeTest MethodAnalysis TimePerformed AtPathologist SignatureSourceUrine, Urine, Qzvhgssbi20/04/2025 6:32 PM CSTDTLColor, UYellow 08/30/2025 6:32 PM CSTDTLClarity, FPvrhm3808/30/2025 6:32 PM CSTDTLProtein, U6 <26 mg/dL08/30/2025 7:11 PM CSTDTLProtein/Osmolality0.11<0.42 ratio08/30/2025 7:11 PM CSTDTLPredicted 24 HR Protein, U93<229 mg/24 08/30/2025 7:11 PM PICC NURSE DTLPredicted Ajilc05-305wo/24 08/30/2025 7:11 PM CSTDTLSpecimen (Source) Anatomical Location / LateralityCollection Method / VolumeCollection Time Received TimeUrine (Urine, Midstream)08/30/2025 5:51 PM CST08/30/2025 6:32 PM PICC NURSE Narrative Authorizing ProviderResult TypeResult Boyd Hogan M.D.LAB URINE ORDERABLESFinal ResultPerforming OrganizationAddressCity/State/ZIP CodePhone Number [facility] [address] [place] [address], [facility] [address] [place] [address] * (ABNORMAL) Urinalysis, with Microscopic: Urine, Catheter (08/30/2025 5:51 PM PICC NURSE)ComponentValueRef RangeTest MethodAnalysis TimePerformed AtPathologist SignatureSourceUrine, Urine, Jmnzmprn85/04/2025 6:34 PM CSTDTLColor, UYellow 08/30/2025 6:34 PM CSTDTLClarity, YRxruo1308/30/2025 6:34 PM CSTDTLProtein, U262 (H)<26 mg/dL08/30/2025 7:31 PM CSTDTLProtein/Osmolality7.16(H)<0.42 ratio 08/30/2025 7:31 PM CSTDTLPredicted 24 HR Protein, U3996(H)<229 mg/24 h 08/30/2025 7:31 PM CSTDTLPredicted Ztqak891-53817qn/24 08/30/2025 7:31 PM PICC NURSE DTLSpecimen (Source)Anatomical Location / LateralityCollection Method / Volume Collection TimeReceived TimeUrine (Urine, Catheter)08/30/2025 5:51 PM PICC NURSE 08/30/2025 6:34 PM PICC NURSE Narrative Authorizing ProviderResult TypeResult StatusSergo Hogan M.D.LAB URINE ORDERABLESFinal ResultPerforming OrganizationAddressCity/State/ZIP CodePhone Number [facility] [address] [place] [address], [facility] D[facility] [place][Note 2] [address] [place] [address] * CT Abdomen Pelvis with IV Contrast (08/30/2025 5:01 PM PICC NURSE)Anatomical Region LateralityModalityAbdomen, Pelvis, Abdominal RST LOS, Abdominal ARZ LOS, Abdominal FLA LOSN/AComputed Tomography, Computed TomographySpecimen (Source) Anatomical Location / LateralityCollection Method / VolumeCollection Time Received Time08/30/2025 4:58 PM PICC NURSE Impressions 08/30/2025 6:15 PM PICC NURSE No acute findings in the abdomen or pelvis. Narrative 08/30/2025 6:15 PM PICC NURSE EXAM: CT ABDOMEN PELVIS WITH IV CONTRAST COMPARISON: ??CT of the abdomen and pelvis with IV contrast from 2019 and FDG PET/CT from 06/17/2020 FINDINGS: ?? No suspicious hepatic masses. The hepatic and portal veins are patent. Cholecystectomy. Dilatation of the common and hepatic bile ducts which may represent postcholecystectomy compensatory dilatation. The pancreas, spleen, and bilateral adrenal glands are normal. Bilateral renal cysts. Right percutaneous nephrostomy tube is well-positioned without hydronephrosis. Small hiatal hernia. Normal caliber of the small and large bowel. Appendectomy. Colonic diverticulosis. Fecal load within the mildly distended rectum to 6 cm although without obstruction or rectal wall thickening to suggest stercoral colitis. No acute osseous abnormalities. Degenerative changes of the spine. Anterolisthesis of L4 on L5. Degenerative changes of the bilateral hips and SI joints. No lymphadenopathy. 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 This is commonly incidental finding seen in asymptomatic patients, but also can be seen in medianarcuate ligament syndrome although this is very rare. The abdominal and pelvic vasculature is otherwise patent. The lung bases are clear. Procedure Note Hiren Matute M.D. - 08/30/2025 EXAM: CT ABDOMEN PELVIS WITH IV CONTRAST COMPARISON: CT of the abdomen and pelvis with IV contrast from 2019and FDG PET/CT from 06/17/2020 FINDINGS: No suspicious hepatic masses. The hepatic and portal veins are patent. Cholecystectomy. Dilatation of the common and hepatic bile ducts which may represent postcholecystectomy compensatory dilatation. The pancreas,spleen, and bilateral adrenal glands are normal. Bilateral renal cysts.Right percutaneous nephrostomy tube is well-positioned withouthydronephrosis. Small hiatal hernia. Normal caliber of the small and large bowel.Appendectomy. Colonic diverticulosis. Fecal load within the mildlydistended rectum to 6 cm although without obstruction or rectal wallthickening to suggest stercoral colitis. No acute osseous abnormalities. Degenerative changes of the spine. Anterolisthesis of L4 on L5. Degenerative changes of the bilateral hipsand SI joints. No lymphadenopathy. J-shaped celiac trunk with ikg-yomo-tjuhizdf narrowing in the proximalsegment, unchanged since 2019. This is commonly incidental finding seen inasymptomatic patients, but also can be seen in median arcuate ligamentsyndrome although this is very rare. The abdominal and pelvic vasculatureis otherwise patent. The lung bases are clear. IMPRESSION: No acute findings in the abdomen or pelvis. Authorizing ProviderResult TypeResult StatusSergo Hogan M.D.IMG CT PROCEDURESFinal Result * Lactate, Venous, Blood (08/30/2025 4:25 PM PICC NURSE)ComponentValueRef RangeTest MethodAnalysis TimePerformed AtPathologist SignatureLactate, Venous, B1.40.5 - 2.2 mmol/L110/31/2024 4:36 PM CSTSTMASpecimen (Source)Anatomical Location / LateralityCollection Method / VolumeCollection TimeReceived TimeBlood 08/30/2025 4:25 PM CST08/30/2025 4:32 PM PICC NURSE Narrative Authorizing ProviderResult TypeResult Boyd Hogan M.D.LAB BLOOD ADD-ONFinal ResultPerforming OrganizationAddressCity/State/ZIP CodePhone Number [facility] [address] [place] [address], [facility] [address] [place] [address] * Patient Status (08/30/2025 4:25 PM PICC NURSE)ComponentValueRef RangeTest Method Analysis TimePerformed AtPathologist CxoxvezynYQH17.210.21=AIR08/30/2025 4:32 PM CSTSTMASpont. breaths/lxb445910/31/2024 4:32 PM CSTSTMASpecimen (Source) Anatomical Location / LateralityCollection Method / VolumeCollection Time Received TauyEkdvh42/04/2025 4:25 PM CST08/30/2025 4:32 PM PICC NURSE Narrative Authorizing ProviderResult TypeResult Boyd Hogan M.D.LAB BLOOD NON ADD-ONFinal ResultPerforming OrganizationAddressCity/State/ZIP CodePhone Number [facility] [address] [place] [address], [facility] [address] [place] [address] * Blood Gas without Coox, Venous (08/30/2025 4:25 PM PICC NURSE)ComponentValueRef Range Test MethodAnalysis TimePerformed AtPathologist SignaturepO2, Venous, B21Not applicable mm Hg08/30/2025 4:36 PM CSTSTMApCO2, Venous, B4341 - 51 mm Hg 08/30/2025 4:36 PM CSTSTMApH, Venous, B7.387.32 - 7.43 pH08/30/2025 4:36 PM CSTSTMABase Excess, Venous, B0Not applicable mmol/L110/31/2024 4:36 PM CSTSTMA HCO3, Venous, B25Not applicable mmol/L110/31/2024 4:36 PM CSTSTMASample Site, Venous, IJougzqkvx28/04/2025 4:32 PM CSTSTMASpecimen (Source)Anatomical Location / LateralityCollection Method / VolumeCollection TimeReceived Time Blood (Blood, Venous)08/30/2025 4:25 PM CST08/30/2025 4:32 PM PICC NURSE Narrative Authorizing ProviderResult TypeResult StatusSergo Hogan M.D.LAB BLOOD NON ADD-ONFinal ResultPerforming OrganizationAddressCity/State/ZIP CodePhone Number [facility] [address] [place] [address], [facility] [place][Note 2] [address] [place] [address] * (ABNORMAL) CRP (C-Reactive Protein) (08/30/2025 4:24 PM PICC NURSE)ComponentValueRef RangeTest MethodAnalysis TimePerformed AtPathologist SignatureC-Reactive Protein (CRP), S9.5(H)<5.0 mg/L110/31/2024 5:32 PM CSTDTLSpecimen (Source) Anatomical Location / LateralityCollection Method / VolumeCollection Time Received TimeBlood (Blood, Venous)08/30/2025 4:24 PM CST08/30/2025 4:43 PM PICC NURSE Narrative Authorizing ProviderResult TypeResult StatusSergo Hogan M.D.LAB BLOOD ADD-ONFinal ResultPerforming OrganizationAddressCity/State/ZIP CodePhone Number [facility] [address] [place] [address], [facility] D[facility] [place][Note 2] [address] [place] [address] * S-TSH (Thyroid-Stimulating Hormone - Sensitive) (08/30/2025 4:24 PM PICC NURSE) ComponentValueRef RangeTest MethodAnalysis TimePerformed AtPathologist SignatureTSH, Sensitive2.00.3 - 4.2 mIU/L110/31/2024 5:32 PM CSTDTLSpecimen (Source)Anatomical Location / LateralityCollection Method / VolumeCollection TimeReceived TimeBlood (Blood, Venous)08/30/2025 4:24 PM CST08/30/2025 4:43 PM PICC NURSE Narrative Authorizing ProviderResult TypeResult Boyd Hogan M.D.LAB BLOOD ADD-ONFinal ResultPerforming OrganizationAddressCity/State/ZIP CodePhone Number [facility] [address] [place] [address], [facility] D[facility] [place][Note 2] [address] [place] [address] * (ABNORMAL) Troponin T, Baseline with 2 Hour/6 Hour Reflex Biomarker Panel (08/30/2025 4:24 PM PICC NURSE)ComponentValueRef RangeTest MethodAnalysis Time Performed AtPathologist SignatureTroponin T, Baseline, 5th gen15(H)<=10 ng/L 08/30/2025 4:58 PM CSTSTMASpecimen (Source)Anatomical Location / Laterality Collection Method / VolumeCollection TimeReceived TimeBlood (Blood, Venous) 08/30/2025 4:24 PM CST08/30/2025 4:32 PM PICC NURSE Narrative Authorizing ProviderResult TypeResult Boyd Hogan M.D.LAB BLOOD TROPONINFinal ResultPerforming OrganizationAddressCity/State/ZIP CodePhone Number [facility] [address] [place] [address], [facility] [place][Note 2] [address] [place] [address] * (ABNORMAL) Sedimentation Rate (08/30/2025 4:24 PM PICC NURSE)ComponentValueRef Range Test MethodAnalysis TimePerformed AtPathologist SignatureSedimentation Rate, B 35(H)3 - 28 mm/08/30/2025 5:47 PM CSTDTLSpecimen (Source)Anatomical Location / LateralityCollection Method / VolumeCollection TimeReceived TimeBlood (Blood, Venous)08/30/2025 4:24 PM CST08/30/2025 4:44 PM PICC NURSE Narrative Authorizing ProviderResult TypeResult Boyd Hogan M.D.LAB BLOOD ADD-ONFinal ResultPerforming OrganizationAddressCity/State/ZIP CodePhone Number [facility] [address] [place] [address], [facility] D[facility] [place][Note 2] [address] [place] [address] * Prothrombin Time (PT) (08/30/2025 4:24 PM PICC NURSE)ComponentValueRef RangeTest MethodAnalysis TimePerformed AtPathologist SignatureProthrombin Time, P11.69.4 - 12.5 sec08/30/2025 4:42 PM CSTSTMAINR1.10.9 - 1. 4:42 PM CSTSTMA Comment: ----ADDITIONAL INFORMATION---- Standard intensity warfarin therapeutic range: 2.0 to 3.0 ?? High intensity warfarin therapeutic range: 2.5 to 3.5 Specimen (Source)Anatomical Location / LateralityCollection Method / Volume Collection TimeReceived TimeBlood (Blood, Venous)08/30/2025 4:24 PM PICC NURSE 08/30/2025 4:32 PM PICC NURSE Narrative Authorizing ProviderResult TypeResult Boyd Hogan M.D.LAB BLOOD ADD-ONFinal ResultPerforming OrganizationAddressCity/State/ZIP CodePhone Number [facility] [address] [place], [place] [address] ST[facility] [place][Note 2] [address] [place] [address] * (ABNORMAL) NT-Pro B-Type Natriuretic Peptide (BNP) (08/30/2025 4:24 PM PICC NURSE) ComponentValueRef RangeTest MethodAnalysis TimePerformed AtPathologist SignatureNT-Pro IRA4902(H)<=540 pg/mL08/30/2025 4:58 PM CSTSTMAComment: NT-proBNP values less than 300 pg/mL have a 99% negative predictive value for excluding acute congestive heart failure. A cutoff of 1200 pg/mL for patients with an eGFR<60 yields a diagnostic sensitivity and specificity of 89% and 72% for acute congestive heart failure. A diagnostic NT-proBNP cutoff of 1800 pg/mL has been suggested in adults over 75 years of age in the absence of renal failure. Specimen (Source)Anatomical Location / LateralityCollection Method / Volume Collection TimeReceived TimeBlood (Blood, Venous)08/30/2025 4:24 PM PICC NURSE 08/30/2025 4:32 PM PICC NURSE Narrative Authorizing ProviderResult TypeResult StatusSergo Hogan M.D.LAB BLOOD ADD-ONFinal ResultPerforming OrganizationAddressCity/State/ZIP CodePhone Number [facility] [address] [place] [address], [facility] [address] [address] * Lipase (08/30/2025 4:24 PM PICC NURSE)ComponentValueRef RangeTest MethodAnalysis Time Performed AtPathologist SignatureLipase, S3813 - 60 U/L110/31/2024 5:32 PM PICC NURSE DTLSpecimen (Source)Anatomical Location / LateralityCollection Method / Volume Collection TimeReceived TimeBlood (Blood, Venous)08/30/2025 4:24 PM PICC NURSE 08/30/2025 4:43 PM PICC NURSE Narrative Authorizing ProviderResult TypeResult StatusSergo Hogan M.D.LAB BLOOD ADD-ONFinal ResultPerforming OrganizationAddressCity/State/ZIP CodePhone Number [facility] [address] [place] [address], [facility] [address] [place] [address] * (ABNORMAL) Hepatic Function Panel (08/30/2025 4:24 PM PICC NURSE)ComponentValueRef RangeTest MethodAnalysis TimePerformed AtPathologist SignatureBilirubin, Total, S0.20.0 - 1.2 mg/dL08/30/2025 5:32 PM CSTDTLBilirubin, Direct, S0.10.0 - 0.3 mg/dL08/30/2025 5:32 PM CSTDTLAspartate Aminotransferase (AST), S238 - 43 U/L110/31/2024 5:32 PM CSTDTLAlanine Aminotransferase (ALT), S117 - 45 U/L 08/30/2025 5:32 PM CSTDTLAlkaline Phosphatase, S124(H)35 - 104 U/L110/31/2024 5:32 PM CSTDTLAlbumin, S3.73.5 - 5.0 g/dL08/30/2025 5:32 PM CSTDTLProtein, Total, S6.66.3 - 7.9 g/dL08/30/2025 5:32 PM CSTDTLSpecimen (Source)Anatomical Location / LateralityCollection Method / VolumeCollection TimeReceived Time Blood (Blood, Venous)08/30/2025 4:24 PM CST08/30/2025 4:43 PM PICC NURSE Narrative Authorizing ProviderResult TypeResult StatusSergo Hogan M.D.LAB BLOOD ADD-ONFinal ResultPerforming OrganizationAddressCity/State/ZIP CodePhone Number [facility] [address] [place] [address], [facility] D[facility] [place][Note 2] [address] [place] [address] * (ABNORMAL) CBC with Differential, Blood (08/30/2025 4:24 PM PICC NURSE)ComponentValue Ref RangeTest MethodAnalysis TimePerformed AtPathologist SignatureHemoglobin 9.9(L)11.6 - 15.0 g/dL08/30/2025 4:35 PM VKODHHNUmzuhnrdpm68.3(L)35.5 - 44.9 % 08/30/2025 4:35 PM CSTSTMAErythrocytes3.41(L)3.92 - 5.13 x10(12)/L110/31/2024 4:35 PM BRANANSDBP31.878.2 - 97.9 fL08/30/2025 4:35 PM CSTSTMARBC Distrib Width14.612.2 - 16.1 %08/30/2025 4:35 PM CSTSTMAPlatelet Tvjwa448(H)157 - 371 x10(9)/L110/31/2024 4:35 PM ZDORQMOIlcdhornea03.2(H)3.4 - 9.6 x10(9)/L 08/30/2025 4:35 PM CSTSTMANeutrophils7.14(H)1.56 - 6.45 x10(9)/L110/31/2024 4:35 PM CSTDHPMLymphocytes2.030.95 - 3.07 x10(9)/L110/31/2024 4:35 PM CSTSTMA Monocytes0.95(H)0.26 - 0.81 x10(9)/L110/31/2024 4:35 PM CSTSTMAEosinophils0.07 0.03 - 0.48 x10(9)/L110/31/2024 4:35 PM CSTSTMABasophils0.030.01 - 0.08 x10(9)/L110/31/2024 4:35 PM CSTSTMASpecimen (Source)Anatomical Location / LateralityCollection Method / VolumeCollection TimeReceived TimeBlood (Blood, Venous)08/30/2025 4:24 PM CST08/30/2025 4:32 PM PICC NURSE Narrative Authorizing ProviderResult TypeResult StatusSergo Hogan M.D.LAB BLOOD ADD-ONFinal ResultPerforming OrganizationAddressCity/State/ZIP CodePhone Number [facility] [address] [place] [address], [facility] [place][Note 2] [address] [place] [address] [facility] [address] [place] [address] * (ABNORMAL) Basic Metabolic Panel (08/30/2025 4:24 PM PICC NURSE)ComponentValueRef RangeTest MethodAnalysis TimePerformed AtPathologist SignaturePotassium, P4.6 3.6 - 5.2 mmol/L110/31/2024 4:49 PM CSTSTMASodium, U160825 - 145 mmol/L 08/30/2025 4:49 PM CSTSTMAChloride, H24216 - 107 mmol/L110/31/2024 4:49 PM PICC NURSE STMABicarbonate, P2322 - 29 mmol/L110/31/2024 4:49 PM CSTSTMAAnion Gap, P117 - 15110/31/2024 4:49 PM CSTSTMABUN (Blood Urea Nitrogen), P25(H)6 - 21 mg/dL 08/30/2025 4:49 PM CSTSTMACreatinine1.57(H)0.59 - 1.04 mg/dL08/30/2025 4:49 PM CSTSTMAEstimated GFR (eGFR)32(L)>=60 mL/min/BSA08/30/2025 4:49 PM CSTSTMA Comment: Estimated GFR calculated using the 2020 CKD_EPI creatinine equation. Calcium, Total, P8.98.8 - 10.2 mg/dL08/30/2025 4:49 PM CSTSTMAGlucose, P9570 - 140 mg/dL08/30/2025 4:49 PM CSTSTMASpecimen (Source)Anatomical Location / LateralityCollection Method / VolumeCollection TimeReceived TimeBlood (Blood, Venous)08/30/2025 4:24 PM CST08/30/2025 4:32 PM PICC NURSE Narrative Authorizing ProviderResult TypeResult Boyd Hogan M.D.LAB BLOOD ADD-ONFinal ResultPerforming OrganizationAddressCity/State/ZIP CodePhone Number [facility] [address] [place] [address], [facility] [place]Note 2] [address] [place] [address] * ECG 12 Lead (08/30/2025 4:14 PM PICC NURSE)ComponentValueRef RangeTest MethodAnalysis TimePerformed AtPathologist SignatureVentricular Rate ECG/Wad53GDNKZTAJD Qlmierjt130eeCAWJDUAL Dpkmqjst61slERBSST Vnqpdwqy102jsPVLTGDK Sirdxrrr314jl MUSEP Sisj79avlbjcrOJWYO Strong-39degreesMUSET Wave Ndxn04dkhiuiePMHQHwsjonez (Source)Anatomical Location / LateralityCollection Method / VolumeCollection TimeReceived Time08/30/2025 4:14 PM CST08/30/2025 4:21 PM PICC NURSE Impressions MUSE - 08/30/2025 4:21 PM PICC NURSE Normal sinus rhythm Left axis deviation When compared with ECG of 06-Mar-2025 18:18, No significant change was found Reviewed by TRITSIN Nicholson Narrative Procedure Note Fawad Lowe M.D. - 08/30/2025 IMPRESSION: Normal sinus rhythm Left axis deviation When compared with ECG of 06-Mar-2025 18:18, No significant change was found Reviewed by TRISTIN Nicholson Authorizing ProviderResult Artis Hogan M.D.ECG ORDERABLES Final ResultPerforming OrganizationAddressCity/State/ZIP CodePhone Number MUSE NA documented in this encounter Visit Diagnoses Diagnosis Urinary Tract Infection Site Not Specified- Primary Vomiting documented in this encounter Administered Medications Medication OrderMAR ActionAction DateDoseRateSite cefTRIAXone injection 1 g (Rocephin) 1 g, intravenous, Once, On Juliet 08/30/25 at 2011, For 1 dose, [place] IV push over 3 minutes., DrugMonitoring Program: Pharmacist to adjust medication dosing based on indication and drug clearance factors., Indications: Upper UTI (pyelonephritis) Indications:Upper UTI (pyelonephritis)Given08/30/2025 8:21 PM CST1 g iohexoL 300 mg iodine/mL solution 1-200 mL (Omnipaque) 1-200 mL, intravenous, Once in imaging, contrast, Starting on Juliet 08/30/25 at 1653, For 1 dose, Imaging Protocol Orders, Dose per Radiant Medication Guidelines Given08/30/2025 4:56 PM FPG469 mL NaCl 0.9% infusion 100 mL/hr, intravenous, Continuous, Starting on Juliet 08/30/25 at 1621 Rate/Dose Irmiiv9408/30/2025 6:55 PM CMH767 mL/wdJalygwddo08/04/2025 5:52 PM PICC NURSE 100 mL/hrRate/Dose Jrnppj4408/30/2025 5:27 PM KMZ773 mL/hr sodium chloride (PF) 0.9 % injection 1-100 mL 1-100 mL, intravenous, Once, On Juliet 08/30/25 at 1654, For 1 dose, Imaging Protocol Orders, Dose per Radiant Medication Guidelines Given08/30/2025 4:56 PM CST50 mLdocumented in this encounter Active and Recently Administered Medications Times are shown in PICC NURSE.Medication Order/ cefTRIAXone injection 1 g (Rocephin) (COMPLETED) 1 g, intravenous, Once, On Juliet 08/30/25 at 2011, For 1 dose, [place]minster IV push over 3 minutes., DrugMonitoring Program: Pharmacist to adjust medication dosing based on indication and drug clearance factors., Indications: Upper UTI (pyelonephritis) * 2020 (Given - Provider: Neetu Yates R.N.) sodium chloride (PF) 0.9 % injection 1-100 mL (COMPLETED) 1-100 mL, intravenous, Once, On Juliet 08/30/25 at 1654, For 1 dose, Imaging Protocol Orders, Dose per Radiant Medication Guidelines * 165 (Given - Provider: Judith Nguyen R.N.) Medication Order NaCl 0.9% infusion 100 mL/hr, intravenous, Continuous, Starting on Juliet 08/30/25 at 1621 * 1628 (New Bag - Provider: Mike Fermin R.N.) * 1650 (Paused - Provider: Mike Fermin R.N.) * 1659 (Restarted - Provider: Mike Fermin R.N.) * 1711 (Paused - Provider: Mike Fermin R.N.) * 1718 (Restarted - Provider: Mike Fermin R.N.) * 1727 (Rate/Dose Verify - Provider: Mike Fermin R.N.) * 1742 (Paused - Provider: Mike Fermin R.N.) * 1752 (Restarted - Provider: Mike Fermin R.N.) * 1855 (Rate/Dose Verify - Provider: Mike Fermin R.N.) * 2244 (Due: Order Ending - Provider: Discharge Provider, Automatic - Comment: [Order ends at this time. Document the following action when infusion is complete: Stopped]) Medication Order iohexoL 300 mg iodine/mL solution 1-200 mL (Omnipaque) (COMPLETED) 1-200 mL, intravenous, Once in imaging, contrast, Starting on Juliet 08/30/25 at 1653, For 1 dose, Imaging Protocol Orders, Dose per Radiant Medication Guidelines * 1656 (Given - Provider: Judith Nguyen R.N.) documented in this encounter Care Teams Team MemberRelationshipSpecialtyStart DateEnd Date Elsewhere, Pcp PCP - GeneralInternal Medicine04/18/25documented as of this encounter
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
--- OUTSIDE RECORDS SUMMARY | 2025-09-13 05:42 | XMS_ITS | Encounter Summary ---
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 solution -- -- 04/30/25 -- Inhale 3 mL by nebulization 4 (four) times a day as needed. levothyroxine (Synthroid) 88 mcg tablet 09/12/2025 at Morning -- 11/22/22 -- Take 88 mcg by mouth daily before morning meal. LORazepam (Ativan) 0.5 mg tablet -- -- 08/08/25 -- Take 0.5 mg by mouth every 6 (six) hours as needed. magnesium oxide (Mag-Ox) 400 mg (241.3 mg magnesium) tablet -- -- -- -- Take 400 mg by mouth at bedtime. oxyCODONE (Roxicodone) 5 mg immediate release tablet -- -- 03/02/25 -- Take 5 mg by mouth every 4 (four) hours as needed. polyethylene glycol 400 0.25 % drops,gel -- -- -- -- Administer 1-2 drops into affected eye(s) every 6 (six) hours as needed (Dry or irritated eyes). tiZANidine (Zanaflex) 2 mg tablet -- -- 08/24/25 -- Take 2 mg by mouth every 6 (six) hours as needed. zinc sulfate (Zinc-220) 220 (50 mg zinc) capsule -- -- -- -- 220 mg daily. N RESOURCES MANAGER documented in this encounter Consult Notes * Janie Sanchez R.N. - 09/14/2025 9:44 AM CSTAssociated Order(s): IP CONSULT TO CARE MANAGEMENT Discharge Planning Assessment SUBJECTIVE Assessment Information Referral Data Referral Source: Early Screen for Discharge Planning Referral Name: [facility] 11 Previous Assessment: No Sales Architect Services Used: No Primary Language: Kosovan Sales Architect Services Used: No Person(s) Present During Interview: patient History of Present Illness #1 Hydronephrosis With Ureteropelvic Junction Obstruction Social History Marital Status: Support System: spouse, children, and friends/neighbors Primary Caregiver: self Social Drivers of Health with Concerns No concerns present OBJECTIVE Finance/Insurance Primary insurance: MEDICARE A AND B Secondary insurance: Livestage benefits: No Advance Directives Legal Decision Maker: Self Advance Directives: Power of Litharge Supervisor for health care Advance Directives Status: Not Activated Baseline Functional Status Baseline Activities of Daily Living Mobility: Requires aide of device Dressing: Independent Feeding: Independent Bathing: Independent Grooming: Independent Toileting: Independent Behavior: Appropriate, Calm, Pleasant, Cooperative Communication: Talks, Understands speaking, Understands Kosovan Shopping: Needs assistance Medication Management: Independent Housekeeping: Needs assistance Meal Prep: Needs assistance Assistive Devices: Cane, Cellphone, Walker - four wheeled, Handrails for stairs, Eyeglasses, Dentures, Tub/shower chair/bench, Grab bars - wall, Grab bars - toilet Services/Resources: Housekeeping, Lawn care, Snow removal Baseline Services/Resources Primary care clinic and provider: Patient Care Team Relationship Specialty Notifications Start End Joann Motta D.O. External Primary Care Physician Family Medicine 03/06/25 Address: [address] [place] [phone] Joann Motta D.O. External Primary Care Physician Family Medicine 04/18/25 Address: [address] [place] [phone] Services/Resources: Housekeeping, Lawn care, Snow removal Additional Services/Resources: NA Anticipated New Needs Functional Status: Transportation use (drive car, use taxi/bus), Shopping, Housekeeping, Meal preparation Assistive Devices: Other (Comment) (no new devices) Services/Resources: Housekeeping, Lawn care, Snow removal Anticipated Modifications to the Patient's Home: None Transportation Needs: Support from family Does the patient need discharge transport arranged?: No Ride and Caregiver Arranged: Yes Ride Caregiver Provider: Radha gray Phone Number for Ride/Caregiver: [phone] Anticipated Discharge Destination: Home or Self Care Referrals Initiated: None ASSESSMENT / PLAN ASSESSMENT: The busboy met with Sun Singh to discuss her current hospitalization and home going needs. The patient was unaccompanied. The patient was a reliable historian. The role of RN CaseManager was reviewed. The patient reviewed her prior level of care and support system. The patient receives support from her , daughter, and son. Sun resides with spouse/significant other in a multi-level home and with bedroom and bathroom onsame level with stairs to enter with rails. Housekeeping, grocery shopping, meal prep, and other household responsibilities have previously been completed by patient, patient's daughter, and senior ux developer. busboy met with patient this morning to address early screen for discharge consult. Patient shares that she is independent with ADLs and uses a cane or four-wheeled walker for mobility. She states that her daughter lives across the street and assists with meal preparation, shopping, and other needs. Patient shares that she has a housekeeping and lawn care service, but denies other current home services. She expresses feeling safe to return home when medically ready to discharge. The patient's potential needs at dismissal based on their home setting, previous needs and responsibilities, homebound status, and relevant assessments were discussed. The patient will be safe and supported to discharge home with spouse/S.O. when medically ready. Support will be provided by her spouse, daughter, and son. call manager reviewed the [facility] Discharge Planning Guide ([id number]) and provided a copy to patient/decision maker. Patient acknowledges understanding of the discharge process, expectations,and potential consequences of non-participation in discharge planning. busboy provided the [place] [facility] handout. - Based on this assessment, no skilled post-hospital discharge care needs have been identified thatrequire the assistance of the Care Management Team. - Patient is not aligned with [facility] Accountable Care Organization ([facility] ACO [place] Registry)and does not qualify for the 3-Day Fpc Facility (SNF) Rule Waiver, allowing admission to a SNF without the standard three-day inpatient hospital stay. If qualified, broad referrals will be sent to facilities within the ACO network if a skilled need has been identified. busboy recommendations include: discussing needed assistance with family, friends, or other individuals that may be able to provide support. Pending hospital course and medical readiness, no barriers to dismissal have been identified at this time. The following hospital-based consult orders and/or referrals placed or requested: None. PLAN: The patient agrees with the following plan. Patient's Anticipated Discharge Destination: Home or Self Care (pending clinical hospital course) Transportation upon dismissal will be provided by family--Radha gray ([phone]). busboy encouraged the patient to reach out with any questions/concerns. Care Management will continue to assess for homegoing needs with the interdisciplinary team. Signed by: Janie Sanchez R.N. 09/14/2025 N RESOURCES MANAGER documented in this encounter Nursing Notes * Camelia Bertrand R.N. - 09/14/2025 12:26 PM CST Patient discharged home to self care with belongings via wheelchair. Patient refused transport, a family member pushed patients wheelchair. Went over AVS, all questions answered. Electronically signed by: Camelia Bertrand R.N. 09/14/2025 12:27 PM HUMAN RESOURCES MANAGER N RESOURCES MANAGER * Camelia Bertrand R.N. - 09/14/2025 12:26 PM CST Shift Goals: Clinical Goals for the Shift: Patient will ambulate twice outside the room by the end of the shift. Identify possible barriers to meeting goals/advancing plan of care: Met End of Shift Summary: Patient met discharge criteria. Patient had return of bowel function and is passing gas. Patient tolerated PO intake and ambulation well. Patient reported adequate pain control. Electronically signed by: Camelia Bertrand R.N. 09/14/2025 12:26 PM HUMAN RESOURCES MANAGER Problem: Risk for Compromised Skin Integrity-Other Manager Privacy(s) Goal: Risk for Compromised Skin Integrity-Other Manager Privacy(s) Outcome: Adequate for Discharge Problem: Risk for Compromised Skin Integrity-Faustino Activity Score 3 Goal: Achieve optimal activity to maintain or improve skin integrity. Outcome: Adequate for Discharge N RESOURCES MANAGER documented in this encounter OR Notes * Op Note - Neetu Simon M.D., M.Ed. 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 Findings -Right diagnostic ureteroscopy without concerning lesions or tumors, circumferential stenotic UPJ obstruction was visualized which could not be traversed with the flexible ureteroscope. -Right modified YV pyeloplasty performed with approximate 3 cm nontransecting ureteral-renal pelvisspatulation. -Placement of 7 Fr x 26 cm Bard ureteral stent and removal of existing right nephrostomy tube. Complications None Operative Note Narrative After informed consent was obtained and the patient was site marked confirming RIGHT sided laterality and identification with at least 2 patient identifiers she was brought back to the OR, anesthesiainduced, and positioned in low dorsal lithotomy with a mild bump beneath the right flank. We started with diagnostic right ureteroscopy. The flexible ureteroscope was advanced through the ureteral orifice up to the proximal right ureter. There was an area of mild tortuosity which was easily traversed with the scope. Just proximal to this there was circumferential narrowing at the UPJ that could not be passed with the flexible ureteroscope. There were no concerning lesions or tumors. We advanced a 0.035 sensor tip wire under direct visualization and offloaded the scope. We then advanced a tiger tail catheter into the distal right ureter to maintain access for ureteral identification and proceeded with the robotic portion of the case. We gained Veress access to the abdomen through the umbilicus and insufflated the abdomen under low pressure. After insufflation we placed a 5 mm trocar at the umbilicus under direct visualization with the Visiport. There were some omental adhesions at the right lateral abdominal wall away from the initial port. We then marked out our camera port 2 fingerbreadths below the right costal margin in the midclavicular line. An 8 mm robotic trocar was then inserted under visualization and we placed anadditional 2 ports in the right kidney configuration. Using the laparoscopic scissors the omental adhesions were taken down. We then placed our most inferior port and a 15 degree lateral angle. We replaced the initial 5 mm Visiport with a 12 mm assistant city attorney port with AirSeal. The patient was then airplaned so that the right flank was high up. Bilateral TAP blocks were performed under direct visualization with 0.25 % bupivacaine / Exparel mixture. The robot was then docked and the robotic instruments introduced. We began by mobilizing the ascending colon along the white line of Toldt. We were able to identify the gonadal vein and the ureter lateral to this. We traced the ureter up to the renal pelvis. There was a superficial crossing vessel leading to Gerotas which was carefully dissected off, not thought to have caused external compression on the UPJ. The renal pelvis and proximal ureter were dissected circumferentially and we spatulated the proximal ureter through the stenotic segment at the UPJ and up to the renal pelvis, estimated spatulation about 3 cm. A flap was made anteromedially and the most medial portion of this was brought to the distal ureteral apex for a modified YV plasty. Using running 4-0 PDS the back wall of the anastomosis was reapproximated first. We placed a 7 Fr x26 cm double J ureteral stent using our established retrograde access under direct visualization through the ureterotomy. The existing right nephrostomy tube was removed. We then reapproximated the anterior portion of the anastomosis with 4-0 PDS and sutures were joined. At completion, the anastomosis appeared tension free and water tight. The surgical bed was carefully inspected and there was excellent hemostasis and no injury to surrounding organs identified. We closed fascia of the 12 mm assistant city attorney port under direct visualization with #1 Vicryl using the abdon barros. A drain was then placed through the right lower quadrant robot port. A [address] catheter was sterilely replaced with 10 cc in balloon. The wounds were then closed using 4-0 Monocryl in a running fashion. Incisional blocks were performed with remaining 0.25% bupivacaine / Exparel. The wounds were dressed with Primapore. The patient was then awoke from general anesthesia about the PACU in stable condition. All sponge and instrument counts correct. PLAN: -UCO/VT POD 1, cystoscopy stent removal in 6 weeks Neetu Simon M.D., MMaryanne. Cosigned by Rupert Loving M.D. at 09/18/2025 1:30 PM HUMAN RESOURCES MANAGER N RESOURCES MANAGER N RESOURCES MANAGER documented in this encounter Miscellaneous Notes * Hospital Course - Neetu Simon M.D., M.Ed. - 09/14/2025 7:00 AM HUMAN RESOURCES MANAGER SURGICAL PROCEDURE: A robotic assisted RIGHT pyeloplasty nontransecting was performed without complication with Dr. Loving team on 09/13/25. PATHOLOGY: None HOSPITAL COURSE: Following the procedure, the patient was transferred to general floor care in stable condition. Thepost-operative course was otherwise uneventful. By the time of dismissal, the patient was ambulatory, tolerating oral intake with no nausea / vomiting, and had pain controlled. PE General: Alert and oriented x 3. No acute distress. HEENT: normocephalic atraumatic Skin: Extremities are warm and well perfused Eyes: Anicteric Lungs: Good respiratory effort. Nonlabored Abdomen: Abdomen soft, nontender, nondistended. Genitalia: St catheter draining clear yellow urine, removed prior to discharge Neuro: Neurologically grossly intact without focal deficits. Psych: normal behavior and affect DISMISSAL LABS: Lab Results Component Value Date CREATININE 1.97 (H) 09/14/2025 Lab Results Component Value Date HGB 8.3 (L) 09/14/2025 Lab Results Component Value Date WBC 8.4 09/14/2025 N RESOURCES MANAGER N RESOURCES MANAGER documented in this encounter Plan of Treatment DateTypeDepartmentCare Team (Latest Contact Info)Jkrpbwlysdu84/03/2026 8:00 AM CSTProcedure visit Department of Urology in [place], [place] [address] [place] [address] Rupert Loving M.D. [address] [place] [address] NameTypePriorityAssociated DiagnosesOrder ScheduleUS Kidneys Bilateral with BladderImagingRAD - Routine (most inpatients and all outpatients) Hydronephrosis With Ureteropelvic Junction Obstruction Expected: 12/13/2025 (Approximate), Expires: 12/13/2026asic Metabolic PanelLab Routine Hydronephrosis With Ureteropelvic Junction Obstruction Expected: 12/13/2025 (Approximate), Expires: 12/13/2026NameTypePriority Associated DiagnosesOrder ScheduleUrology office visit (clinic)Outpatient ReferralRoutineExpected: 12/13/2025 (Approximate), Expires: 12/13/2026documented as of this encounter Procedures Procedure NamePriorityDate/TimeAssociated DiagnosisCommentsCBC WITHOUT DIFFERENTIAL, JMhwffcp05/19/2025 12:35 AM HUMAN RESOURCES MANAGER BASIC METABOLIC PANEL, S/GEeqksdj65/19/2025 12:35 AM HUMAN RESOURCES MANAGER PULSE OXIMETRY WITH REMOTE EAFEIRWDJcvuexd25/18/2025 6:18 PM CSTPULSE OXIMETRY WITH REMOTE CKZCLXEUWfbuoxk31/18/2025 6:18 PM CSTADULT OXYGEN THERAPYRoutine 09/13/2025 5:23 PM CSTADULT OXYGEN HHLHCYBVbxbdxg60/18/2025 5:23 PM CSTADULT OXYGEN WUWICEWQbfunyf26/18/2025 5:23 PM CSTADULT OXYGEN QXSNCCCHrnrmwx74/18/2025 11:40 AM CSTPATIENT STATUS, OHDSQLV81/18/2025 8:32 AM HUMAN RESOURCES MANAGER SODIUM, BSTAT111/14/2024 8:32 AM HUMAN RESOURCES MANAGER ABG W/WZMXNYVK40/18/2025 8:32 AM HUMAN RESOURCES MANAGER POTASSIUM, BSTAT111/14/2024 8:32 AM HUMAN RESOURCES MANAGER GLUCOSE, WHOLE PZYHVRDLT66/18/2025 8:32 AM HUMAN RESOURCES MANAGER CALCIUM, IONIZED, S/BSTAT111/14/2024 8:32 AM HUMAN RESOURCES MANAGER TYPE AND VZLQVMSeiczqw98/18/2025 8:20 AM HUMAN RESOURCES MANAGER STENT PLACEMENT - UZTRVMAW07/18/2025 7:24 AM HUMAN RESOURCES MANAGER 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 ELIARHTCUIEA52/18/2025 7:24 AM HUMAN RESOURCES MANAGER 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 ROBOTIC-ASSISTED RCOFQCTZCRH71/18/2025 7:24 AM HUMAN RESOURCES MANAGER 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 documented in this encounter Results * (ABNORMAL) CBC without Differential (09/14/2025 12:35 AM HUMAN RESOURCES MANAGER)ComponentValueRef RangeTest MethodAnalysis TimePerformed AtPathologist SignatureHemoglobin8.3 (L)11.6 - 15.0 g/dL09/14/2025 12:51 AM VOFCTBRkldtljhcq47.4(L)35.5 - 44.9 % 09/14/2025 12:51 AM CSTDTLErythrocytes2.93(L)3.92 - 5.13 x10(12)/L111/15/2024 12:51 AM CINKNZGFG40.178.2 - 97.9 fL09/14/2025 12:51 AM CSTDTLRBC Distrib Width14.612.2 - 16.1 %09/14/2025 12:51 AM CSTDTLPlatelet Fludm659(H)157 - 371 x10(9)/L111/15/2024 12:51 AM CSTDTLLeukocytes8.43.4 - 9.6 x10(9)/L111/15/2024 12:51 AM CSTDTLSpecimen (Source)Anatomical Location / LateralityCollection Method / VolumeCollection TimeReceived TimeBlood (Blood, Venous)09/14/2025 12:35 AM CST09/14/2025 12:44 AM HUMAN RESOURCES MANAGER Narrative Authorizing ProviderResult TypeResult StatusNeetu Simon M.D., M.Ed.LAB BLOOD ADD-ONFinal ResultPerforming OrganizationAddressCity/State/ZIP CodePhone Number [facility] [address] [place] [address], [facility] DTL [facility] [address] [place] [address] * (ABNORMAL) Basic Metabolic Panel (09/14/2025 12:35 AM HUMAN RESOURCES MANAGER)ComponentValueRef RangeTest MethodAnalysis TimePerformed AtPathologist SignaturePotassium, S5.0 3.6 - 5.2 mmol/L111/15/2024 1:14 AM CSTDTLSodium, S133(L)135 - 145 mmol/L 09/14/2025 1:14 AM CSTDTLChloride, G73670 - 107 mmol/L111/15/2024 1:14 AM HUMAN RESOURCES MANAGER DTLBicarbonate, S21(L)22 - 29 mmol/L111/15/2024 1:14 AM CSTDTLAnion Ccn816 - 15 09/14/2025 1:14 AM CSTDTLBUN (Blood Urea Nitrogen), S216 - 21 mg/dL09/14/2025 1:14 AM CSTDTLCreatinine1.97(H)0.59 - 1.04 mg/dL09/14/2025 1:14 AM CSTDTL Estimated GFR (eGFR)24(L)>=60 mL/min/BSA09/14/2025 1:14 AM CSTDTLComment: Estimated GFR calculated using the 2020 CKD_EPI creatinine equation. Calcium, Total, S8.2(L)8.8 - 10.2 mg/dL09/14/2025 1:14 AM CSTDTLGlucose, S9370 - 140 mg/dL09/14/2025 1:14 AM CSTDTLSpecimen (Source)Anatomical Location / LateralityCollection Method / VolumeCollection TimeReceived TimeBlood (Blood, Venous)09/14/2025 12:35 AM CST09/14/2025 12:59 AM HUMAN RESOURCES MANAGER Narrative Authorizing ProviderResult TypeResult StatusNeetu Simon M.D., M.Ed.LAB BLOOD ADD-ONFinal ResultPerforming OrganizationAddressCity/State/ZIP CodePhone Number [facility] [address] [place] [address], [facility] DTL [facility] [address] [place] [address] * Patient Status (09/13/2025 8:32 AM HUMAN RESOURCES MANAGER)ComponentValueRef RangeTest Method Analysis TimePerformed AtPathologist PvzkxdokoLtxcqezucsh31.037.0 deg C 09/13/2025 8:32 AM JSCUEWKLGP83.570.21=AIR09/13/2025 8:32 AM CSTMETHSpecimen (Source)Anatomical Location / LateralityCollection Method / VolumeCollection TimeReceived UmfvBokef55/18/2025 8:32 AM CST09/13/2025 8:32 AM HUMAN RESOURCES MANAGER Narrative Authorizing ProviderResult TypeResult StatusSoren Alfaro M.D.LAB BLOOD NON ADD-ONFinal ResultPerforming OrganizationAddressCity/State/ZIP CodePhone Number [facility] [address] [place] [address], [facility] [address] [place] [address] * Glucose, Whole Blood (09/13/2025 8:32 AM HUMAN RESOURCES MANAGER)ComponentValueRef RangeTest MethodAnalysis TimePerformed AtPathologist IpmjrwwhmFtcdnjb63671 - 140 mg/dL 09/13/2025 8:33 AM CSTMETHSpecimen (Source)Anatomical Location / Laterality Collection Method / VolumeCollection TimeReceived TimeBlood (Blood, Arterial) 09/13/2025 8:32 AM CST09/13/2025 8:32 AM HUMAN RESOURCES MANAGER Narrative Authorizing ProviderResult TypeResult StatusSoren Alfaro M.D.LAB BLOOD ADD-ON Final ResultPerforming OrganizationAddressCity/State/ZIP CodePhone Number [facility] [address] [place] [address], [facility] [address] [place] [address] * Potassium, Blood (09/13/2025 8:32 AM HUMAN RESOURCES MANAGER)ComponentValueRef RangeTest Method Analysis TimePerformed AtPathologist SignaturePotassium, B3.93.6 - 5.2 mmol/L 09/13/2025 8:40 AM CSTMETHSpecimen (Source)Anatomical Location / Laterality Collection Method / VolumeCollection TimeReceived TimeBlood (Blood, Arterial) 09/13/2025 8:32 AM CST09/13/2025 8:32 AM HUMAN RESOURCES MANAGER Narrative Authorizing ProviderResult TypeResult StatusSoren Alfaro M.D.LAB BLOOD NON ADD-ONFinal ResultPerforming OrganizationAddressCity/State/ZIP CodePhone Number [facility] [address] [place] [address], [facility] [address] [place] [address] * Sodium, B (09/13/2025 8:32 AM HUMAN RESOURCES MANAGER)ComponentValueRef RangeTest MethodAnalysis TimePerformed AtPathologist SignatureSodium, A664757 - 145 mmol/L111/14/2024 8:33 AM CSTMETHSpecimen (Source)Anatomical Location / LateralityCollection Method / VolumeCollection TimeReceived TimeBlood (Blood, Arterial)09/13/2025 8:32 AM CST09/13/2025 8:32 AM HUMAN RESOURCES MANAGER Narrative Authorizing ProviderResult TypeResult StatusSoren Alfaro M.D.LAB BLOOD NON ADD-ONFinal ResultPerforming OrganizationAddressCity/State/ZIP CodePhone Number [facility] [address] [place] [address] * Calcium, Ionized (09/13/2025 8:32 AM HUMAN RESOURCES MANAGER)ComponentValueRef RangeTest Method Analysis TimePerformed AtPathologist SignatureCalcium, Ionized, B4.804.65 - 5.30 mg/dL09/13/2025 8:40 AM CSTMETHSpecimen (Source)Anatomical Location / LateralityCollection Method / VolumeCollection TimeReceived TimeBlood (Blood, Arterial)09/13/2025 8:32 AM CST09/13/2025 8:32 AM HUMAN RESOURCES MANAGER Narrative Authorizing ProviderResult TypeResult StatusSoren Alfaro M.D.LAB BLOOD NON ADD-ONFinal ResultPerforming OrganizationAddressCity/State/ZIP CodePhone Number [facility] [address] [place] [address] * (ABNORMAL) Blood Gas with Coox, Arterial (09/13/2025 8:32 AM HUMAN RESOURCES MANAGER)Component ValueRef RangeTest MethodAnalysis TimePerformed AtPathologist YtxostooykW0850 (H)83 - 108 mm Hg09/13/2025 8:33 AM JXJHYOLyPY13747 - 45 mm Hg09/13/2025 8:33 AM CSTMETHpH7.397.35 - 7.45 pH09/13/2025 8:33 AM CSTMETHBase Excess-5(L)-2 - 3 mmol/L111/14/2024 8:33 AM LGSBEUAXLY535(L)22 - 26 mmol/L111/14/2024 8:33 AM HUMAN RESOURCES MANAGER METHHemoglobin, B8.7(L)11.6 - 15.0 g/dL09/13/2025 8:33 AM YHWKVHBG8Gd93.794.0 - 98.0 %09/13/2025 8:33 AM CSTMETHCOHb1.1<3.0 %09/13/2025 8:33 AM CSTMETHMetHb 1.2<1.5 %09/13/2025 8:33 AM AUCTAWSDzO840.3(L)18.0 - 21.0 vol %09/13/2025 8:33 AM CSTMETHSpecimen (Source)Anatomical Location / LateralityCollection Method / VolumeCollection TimeReceived TimeBlood (Blood, Arterial)09/13/2025 8:32 AM CST09/13/2025 8:32 AM HUMAN RESOURCES MANAGER Narrative Authorizing ProviderResult TypeResult StatusSoren Alfaro M.D.LAB BLOOD NON ADD-ONFinal ResultPerforming OrganizationAddressCity/State/[facility] CodePhone Number [facility] [address] [place] [address], [facility] METH [facility] [address] [place] [address] * Type and Screen (with Reflex Antibody ID) (09/13/2025 8:20 AM HUMAN RESOURCES MANAGER)Component ValueRef RangeTest MethodAnalysis TimePerformed AtPathologist SignatureABORhO PosNot /18/2025 9:26 AM CSTETRMAntibody ScreenNegativeNegative 09/13/2025 9:40 AM CSTETRMType & Screen Kizxghjflj94/21/2025 23:5909/13/2025 9:26 AM CSTETRMTesting Location[place] DEFAULT 09/13/2025 8:43 AM CSTETRMSpecimen (Source)Anatomical Location / Laterality Collection Method / VolumeCollection TimeReceived TimeBlood (Blood, Venous) 09/13/2025 8:20 AM CST09/13/2025 8:43 AM HUMAN RESOURCES MANAGER Narrative Authorizing ProviderResult TypeResult StatusSoren Alfaro M.D.LAB BLOOD BANK TEST ORDERABLESFinal ResultPerforming OrganizationAddressCity/State/ZIP Code Phone Number [facility] [address] [place] [address], [facility] ETRM [facility] [place] [address] [place] [address] documented in this encounter Visit Diagnoses Diagnosis Hydronephrosis With Ureteropelvic Junction Obstruction- Primary Hydronephrosis With Ureteropelvic Junction Obstruction documented in this encounter Admitting Diagnoses Diagnosis Hydronephrosis With Ureteropelvic Junction Obstruction documented in this encounter Administered Medications Medication OrderMAR ActionAction DateDoseRateSite acetaminophen injection 1,000 mg 1,000 mg, intravenous, at 400 mL/hr, Administer over 15 Minutes, Once, On Juliet 09/13/25 at 1300, For1 dose, PACU (only), Restriction Criteria (Pharmacy will review and approve if criteria met): Unable to take or tolerate medications administered via the enteral route or orally (not just NPO) New Bag09/13/2025 12:34 PM CST1,000 mg400 mL/hr acetaminophen tablet 1,000 mg (TylenoL) 1,000 mg, oral, Once, On Juliet 09/13/25 at 0615, For 1 dose, Pre-Op, PreOp give in preprocedural area. Given09/13/2025 6:47 AM CST1,000 mg acetaminophen tablet 1,000 mg (TylenoL) 1,000 mg, oral, Every 6 hours PRN, mild pain or score 1-3 of 10, Starting on Juliet 09/13/25 at 1722, For mild pain, give acetaminophen before tramadol. Given09/13/2025 6:12 PM CST1,000 mg acetaminophen tablet 1,000 mg (TylenoL) 1,000 mg, oral, Every 6 hours, First dose (after last modification) on Juliet 09/13/25 at 1900, For mild pain, give acetaminophen before tramadol. Given09/14/2025 6:04 AM CST1,000 uvPznlu9209/14/2025 1:08 AM CST1,000 mg benzocaine-menthoL 15-3.6 mg per lozenge 1 lozenge (CepacoL) 1 lozenge, oral, As needed, sore throat, Starting on Juliet 09/13/25 at 1722 cyclobenzaprine tablet 10 mg (FlexeriL) 10 mg, oral, Once as needed, muscle spasms, Starting on Juliet 09/13/25 at 1409, For 1 dose, PACU (only) Given09/13/2025 3:05 PM CST10 mg cyclobenzaprine tablet 5 mg (FlexeriL) 5 mg, oral, 3 times daily PRN, muscle spasms, Starting on Juliet 09/13/25 at 1835 D5W infusion 1-999 mL/hr, intravenous, As needed, Medications Incompatible with 0.9% NaCL, Starting on Juliet 09/13/25 at 1412, Infuse at the same rate as the piggyback until tubing clears or up to a volume of 20 mLpre and post infusion for medications incompatible with 0.9% NaCL. Use 50 mL bag then discard. D5W infusion 1-999 mL/hr, intravenous, As needed, Medications Incompatible with 0.9% NaCL, Starting on Juliet 09/13/25 at 1741, Infuse at the same rate as the piggyback until tubing clears or up to a volume of 20 mLpre and post infusion for medications incompatible with 0.9% NaCL. Use 50 mL bag then discard. diclofenac sodium 1 % gel 2 g (Voltaren) 2 g, topical, Every 6 hours PRN, Muscle pain, Starting on Juliet 09/13/25 at 1835, Do not exceed 32 g per day, over all affected joints. Use dosing card to measure product. 2 g = 2.25 inches, 4 gm = 4.5inches. Rinse dosing card after use and save for each administration. fentaNYL injection 25 mcg (Sublimaze) 25 mcg, intravenous, Every 2 min PRN, For pain 4 or greater (maximum 100 mcg). If max dose of Fentanyl is reached and if pain is greater than 4, discontinue Fentanyl: give Hydromorphone, Starting on Juliet 09/13/25 at 1140, PACU (only) Given09/13/2025 12:08 PM CST25 ustVgioi11/18/2025 11:59 AM CST25 mcgGiven 09/13/2025 11:56 AM CST25 mcg granisetron (PF) injection 1 mg (KytriL) 1 mg, intravenous, Once as needed, nausea, vomiting, Starting on Juliet 09/13/25 at 1140, For 1 dose, PACU (only), If patient does not respond to ondansetron or haloperidol. (order of antiemetic administration - ondansetron then haloperidol then granisetron) Given09/13/2025 2:12 PM CST1 mg heparin (porcine) injection 5,000 Units 5,000 Units, subcutaneous, Every 8 hours scheduled, First dose on Juliet 09/13/25 at 2200 Given09/14/2025 6:04 AM CST5,000 UnitsLeft Lower UkjupndQwlip60/18/2025 8:28 PM CST5,000 UnitsLeft Upper Arm (Back) HYDROmorphone (PF) injection 0.2 mg (Dilaudid) 0.2 mg, intravenous, Every 5 min PRN, moderate pain or score 4-6 of 10, severe pain or score 7-10 of 10, Starting on Juliet 09/13/25 at 1140, For 5 doses, PACU (only) Given09/13/2025 1:41 PM CST0.2 xyUfycc1309/13/2025 1:35 PM CST0.2 mgGiven 09/13/2025 1:29 PM CST0.2 mg ipratropium-albuteroL 0.5-2.5 mg/3 mL nebulizer solution 3 mL (DuoNeb) 3 mL, nebulization, Once, On Juliet 09/13/25 at 0715, For 1 dose, Pre-Op Given09/13/2025 7:50 AM CST3 mL ketamine injection 5 mg (Ketalar) 5 mg, intravenous, Once, On Juliet 09/13/25 at 1615, For 1 dose, PACU (only) Given09/13/2025 3:50 PM CST5 mg Lactated Ringer's 100 mL/hr, intravenous, Continuous, Starting on Juliet 09/13/25 at 1745 Rate/Dose Mrinfd4409/14/2025 6:03 AM WYX554 mL/hrNew Bag09/14/2025 3:27 AM XMW473 mL/hr100 mL/hrRate/Dose Yuzuni3309/13/2025 11:56 PM GTS110 mL/hr levothyroxine tablet 88 mcg 88 mcg, oral, Daily before morning meal, First dose on Wed09/14/25 at 0700 Given09/14/2025 6:05 AM CST88 mcg NaCl 0.9% infusion 1-999 mL/hr, intravenous, As needed, Between Consecutive Piggyback Medications, Starting on Juliet 09/13/25 at 1412, For 7 days, Infuse at the same rate as the piggyback until tubing clears or up to a volume of 20 mL. Select for IV medication administration when no maintenance IV available or when IV m edications are not compatible with maintenance fluid. NaCl 0.9% infusion 1-999 mL/hr, intravenous, As needed, Post Medications (Hazardous/Low Fluid Volume), Starting on 11/14/24 at 1412, For 7 days, Infuse at the same rate as the medication until tubing cleared of medication, then discard. NaCl 0.9% infusion 1-999 mL/hr, intravenous, As needed, Between Consecutive Piggyback Medications, Starting on Juliet 09/13/25 at 1741, For 7 days, Infuse at the same rate as the piggyback until tubing clears or up to a volume of 20 mL. Select for IV medication administration when no maintenance IV available or when IV m edications are not compatible with maintenance fluid. NaCl 0.9% infusion 1-999 mL/hr, intravenous, As needed, Post Medications (Hazardous/Low Fluid Volume), Starting on 11/14/24 at 1741, For 7 days, Infuse at the same rate as the medication until tubing cleared of medication, then discard. naloxone injection 0.2 mg (Narcan) 0.2 mg, intravenous, As needed, respiratory depression, Starting on Juliet 09/13/25 at 1722, For RASS Score -4 or less, respiratory rate of less than 8 breaths/min. Notify provider/service and rapid response team (if available at institution). ondansetron (PF) injection 4 mg (Zofran) 4 mg, intravenous, Every 6 hours PRN, nausea, vomiting, Starting on Juliet 09/13/25 at 1722 Given09/13/2025 7:42 PM CST4 mg oxyCODONE IR tablet 10 mg (Roxicodone) 10 mg, oral, Every 4 hours PRN, severe pain or score 7-10 of 10, May use if patient can take oral meds and other analgesics are ineffective, Starting on Juliet 09/13/25 at 1315 Given09/13/2025 1:17 PM CST10 mg oxyCODONE IR tablet 5 mg (Roxicodone) 5 mg, oral, Every 4 hours PRN, moderate pain or score 4-6 of 10, May use if patient can take oral meds and other analgesics are ineffective, Starting on Juliet 09/13/25 at 1315 polyethylene glycol powder packet 17 g (Miralax) 17 g, oral, Daily PRN, constipation, Starting on Juliet 09/13/25 at 1722, Ordered sequence of administration: polyethylene glycol, then bisacodyl until BM achieved. Avoid mixing with starch-based thickened liquids. sennosides-docusate sodium 8.6-50 mg per tablet 1 tablet (Senokot-S) 1 tablet, oral, 2 times daily, First dose on Juliet 09/13/25 at 2100, Do not give if patient has diarrhea. Given09/14/2025 8:51 AM CST1 isxeypDznsl49/18/2025 8:28 PM CST1 tablet simethicone chewable tablet 160 mg 160 mg, oral, 4 times daily PRN, flatulence, Starting on Juliet 09/13/25 at 1835 simethicone chewable tablet 80 mg 80 mg, oral, 4 times daily PRN, flatulence, Starting on Juliet 09/13/25 at 1408, PACU (only) Given09/13/2025 2:13 PM CST80 mg sodium chloride 0.9 % injection 10 mL 10 mL, intravenous, As needed, line care, Starting on Juliet 09/13/25 at 1722, Peripheral Intravenous Catheter and Rapid Infusion Catheter, prior to blood sampling, post blood transfusion or post blood sampling sodium chloride 0.9 % injection 10 mL 10 mL, intravenous, As needed, line care, Peripheral Intravenous Catheter and Rapid Infusion Catheter, Starting on Juliet 09/13/25 at 1412, Prior to blood sampling, post blood transfusion or post blood sampling. sodium chloride 0.9 % injection 10 mL 10 mL, intravenous, As needed, line care, Peripheral Intravenous Catheter and Rapid Infusion Catheter, Starting on Juliet 09/13/25 at 1741, Prior to blood sampling, post blood transfusion or post blood sampling. sodium chloride 0.9 % injection 3 mL 3 mL, intravenous, As needed, line care, Starting on Juliet 09/13/25 at 1722, Prior to and following infusion and between multiple consecutive infusions: sodium chloride 0.9 % injection sodium chloride 0.9 % injection 3 mL 3 mL, intravenous, Every 12 hours scheduled, First dose on Juliet 09/13/25 at 2100, Peripheral Intravenous Catheter and Rapid Infusion Catheter, when no infusion to maintain patency Given09/14/2025 8:52 AM CST3 mL sodium chloride 0.9 % injection 3 mL 3 mL, intravenous, As needed, line care, Peripheral Intravenous Catheter and Rapid Infusion Catheter, Starting on Juliet 09/13/25 at 1412, Prior to and following infusion and between multiple consecutive infusions. sodium chloride 0.9 % injection 3 mL 3 mL, intravenous, Every 24 hours scheduled, First dose on Wed09/14/25 at 0900, Peripheral Intravenous Catheter and Rapid Infusion Catheter: When no infusion to maintain patency. Given09/14/2025 8:54 AM CST3 mL sodium chloride 0.9 % injection 3 mL 3 mL, intravenous, As needed, line care, Peripheral Intravenous Catheter and Rapid Infusion Catheter, Starting on Juliet 09/13/25 at 1741, Prior to and following infusion and between multiple consecutive infusions. sodium chloride 0.9 % injection 3 mL 3 mL, intravenous, Every 24 hours scheduled, First dose on Wed09/14/25 at 0900, Peripheral Intravenous Catheter and Rapid Infusion Catheter: When no infusion to maintain patency. trospium tablet 20 mg (Sanctura) 20 mg, oral, 2 times daily PRN, bladder spasms, Starting on Juliet 09/13/25 at 1722, Administer with water at least 1 hr prior to meals. documented in this encounter Active and Recently Administered Medications Times are shown in HUMAN RESOURCES MANAGER.Medication Order/ acetaminophen injection 1,000 mg (COMPLETED) 1,000 mg, intravenous, at 400 mL/hr, Administer over 15 Minutes, Once, On Juliet 09/13/25 at 1300, For1 dose, PACU (only), Restriction Criteria (Pharmacy will review and approve if criteria met): Unable to take or tolerate medications administered via the enteral route or orally (not just NPO) * 1234 (New Bag - Provider: Melba Pro.S.N., R.N.) * 1343 (Stopped - Provider: Jero ProS.Maggie., R.N.) acetaminophen tablet 1,000 mg (TylenoL) (COMPLETED) 1,000 mg, oral, Once, On Juliet 09/13/25 at 0615, For 1 dose, Pre-Op, PreOp give in preprocedural area. * 0647 (Given - Provider: Debra Cortes, R.N.) acetaminophen tablet 1,000 mg (TylenoL) 1,000 mg, oral, Every 6 hours, First dose (after last modification) on Juliet 09/13/25 at 1900, For mild pain, give acetaminophen before tramadol. * 1836 (Not Given - Provider: Camelia Bertrand R.N. - Reason: Other - Comment: order for PRN, new order put meds on a schedule, too close to give) * 0108 (Given - Provider: Lee Ann Rosenthal RRedd) * 0604 (Given - Provider: Lee Ann Rosenthal R.N.) cefepime in dextrose (iso osm) IVPB 2 g (Maxipime) (COMPLETED) 2 g, intravenous, at 200 mL/hr, Administer over 30 Minutes, Once, On Juliet 09/13/25 at 0615, For 1 dose, Pre-Op, Drug Monitoring Program: Pharmacist to adjust medication dosing based on indication and drug clearance factors., Indications: Prophylaxis, surgical * 0835 (Given - Provider: Milena Luz R.N.) heparin (porcine) injection 5,000 Units (COMPLETED) 5,000 Units, subcutaneous, Once, On Juliet 09/13/25 at 0800, For 1 dose, Intra-Op, Administer prior toinduction of anesthesia. * 0825 (Given - Provider: Milena Luz R.N.) heparin (porcine) injection 5,000 Units 5,000 Units, subcutaneous, Every 8 hours scheduled, First dose on Juliet 09/13/25 at 2200 * 2028 (Given - Provider: Kaylah Bach RFeiNFei) * 0604 (Given - Provider: Lee Ann Rosenthal RFeiNFei) ipratropium-albuteroL 0.5-2.5 mg/3 mL nebulizer solution 3 mL (DuoNeb) (COMPLETED) 3 mL, nebulization, Once, On Juliet 25 at 0715, For 1 dose, Pre-Op * 0750 (Given - Provider: Kelly Sneed RFeiNFei) ketamine injection 5 mg (Ketalar) (COMPLETED) 5 mg, intravenous, Once, On Wed09/13/25 at 1615, For 1 dose, PACU (only) * 1550 (Given - Provider: Xin Martin R.N.) levothyroxine tablet 88 mcg 88 mcg, oral, Daily before morning meal, First dose on Wed09/14/25 at 0700 * 0605 (Given - Provider: Lee Ann Rosenthal R.N.) sennosides-docusate sodium 8.6-50 mg per tablet 1 tablet (Senokot-S) 1 tablet, oral, 2 times daily, First dose on Wed09/13/25 at 2100, Do not give if patient has diarrhea. * 2027 (Given - Provider: Kaylah Bach R.N.) * 0851 (Given - Provider: Camelia Bertrand R.N.) sodium chloride 0.9 % injection 3 mL 3 mL, intravenous, Every 12 hours scheduled, First dose on Wed09/13/25 at 2100, Peripheral Intravenous Catheter and Rapid Infusion Catheter, when no infusion to maintain patency * 2027 (Not Given - Provider: Kaylah Bach R.N. - Reason: Order parameters not met) * 0852 (Given - Provider: Camelia Bertrand R.N.) sodium chloride 0.9 % injection 3 mL 3 mL, intravenous, Every 24 hours scheduled, First dose on Wed09/14/25 at 0900, Peripheral Intravenous Catheter and Rapid Infusion Catheter: When no infusion to maintain patency. * 0854 (Given - Provider: Camelia Bertrand R.N.) sodium chloride 0.9 % injection 3 mL 3 mL, intravenous, Every 24 hours scheduled, First dose on Wed09/14/25 at 0900, Peripheral Intravenous Catheter and Rapid Infusion Catheter: When no infusion to maintain patency. * 0853 (Not Given - Provider: Camelia Bertrand R.N. - Reason: Order parameters not met) Medication Order/ Lactated Ringer's 20 mL/hr, intravenous, Continuous, Starting on Wed09/13/25 at 1130, PACU & Post-Op * 0326 (Stopped - Provider: Lee Ann Rosenthal R.N.) * 0326 (Canceled Entry - Provider: Lee Ann Rosenthal R.N.) * 0327 (Stopped - Provider: Lee Ann Rosenthal R.N.) * 0327 (Stopped - Provider: Lee Ann Rosenthal R.N.) Lactated Ringer's 100 mL/hr, intravenous, Continuous, Starting on Juliet 09/13/25 at 1745 * 1727 (New Bag - Provider: Camelia Bertrand R.N.) * 1729 (Rate/Dose Verify - Provider: Kaylah Bach R.N.) * 2356 (Rate/Dose Verify - Provider: Kaylah Bach R.N.) * 0322 (Stopped - Provider: Lee Ann Rosenthal R.N.) * 0327 (New Bag - Provider: Lee Ann Rosenthal R.N.) * 0421 (Canceled Entry - Provider: Lee Ann Rosenthal R.N.) * 0603 (Rate/Dose Verify - Provider: Lee Ann Rosenthal R.N.) * 1051 (Stopped - Provider: Camelia Bertrand R.N.) Medication Order09/12/213821/512/ acetaminophen tablet 1,000 mg (TylenoL) (CANCELED) 1,000 mg, oral, Every 6 hours PRN, mild pain or score 1-3 of 10, Starting on Juliet 09/13/25 at 1722, For mild pain, give acetaminophen before tramadol. * 1812 (Given - Provider: Camelia Bertrand R.N.) albuterol nebulizer solution 2.5 mg 2.5 mg, nebulization, Every 4 hours PRN, shortness of breath, wheezing, Starting on Juliet 09/13/25 cs1936, Albuterol nebs were interchanged for albuterol MDI (same frequency) benzocaine-menthoL 15-3.6 mg per lozenge 1 lozenge (CepacoL) 1 lozenge, oral, As needed, sore throat, Starting on Juliet 09/13/25 at 1722 BUPivacaine liposome (PF) 20 mL, BUPivacaine 30 mL 50 mL injection (CANCELED) As needed, Starting on Juliet 09/13/25 at 0930, Intra-Op * 0930 (Given - Provider: Neetu Simon M.D., M.Ed. - Comment: TAP Block) cyclobenzaprine tablet 10 mg (FlexeriL) (COMPLETED) 10 mg, oral, Once as needed, muscle spasms, Starting on Juliet 09/13/25 at 1409, For 1 dose, PACU (only) * 1505 (Given - Provider: Xin Martin R.N.) cyclobenzaprine tablet 5 mg (FlexeriL) 5 mg, oral, 3 times daily PRN, muscle spasms, Starting on Juliet 09/13/25 at 1835 D5W infusion 1-999 mL/hr, intravenous, As needed, Medications Incompatible with 0.9% NaCL, Starting on Juliet 09/13/25 at 1412, Infuse at the same rate as the piggyback until tubing clears or up to a volume of 20 mLpre and post infusion for medications incompatible with 0.9% NaCL. Use 50 mL bag then discard. D5W infusion 1-999 mL/hr, intravenous, As needed, Medications Incompatible with 0.9% NaCL, Starting on Juliet 09/13/25 at 1741, Infuse at the same rate as the piggyback until tubing clears or up to a volume of 20 mLpre and post infusion for medications incompatible with 0.9% NaCL. Use 50 mL bag then discard. diclofenac sodium 1 % gel 2 g (Voltaren) 2 g, topical, Every 6 hours PRN, Muscle pain, Starting on Juliet 09/13/25 at 1835, Do not exceed 32 g per day, over all affected joints. Use dosing card to measure product. 2 g = 2.25 inches, 4 gm = 4.5inches. Rinse dosing card after use and save for each administration. fentaNYL injection 25 mcg (Sublimaze) (CANCELED) 25 mcg, intravenous, Every 2 min PRN, For pain 4 or greater (maximum 100 mcg). If max dose of Fentanyl is reached and if pain is greater than 4, discontinue Fentanyl: give Hydromorphone, Starting on Juliet 09/13/25 at 1140, PACU (only) * 1148 (Given - Provider: Ej Manjarrez R.N.) * 1156 (Given - Provider: Zuleika BrothersRedd) * 1159 (Given - Provider: Ej Manjarrez R.N.) * 1208 (Given - Provider: Ej Manjarrez R.N.) granisetron (PF) injection 1 mg (KytriL) (COMPLETED) 1 mg, intravenous, Once as needed, nausea, vomiting, Starting on Juliet 09/13/25 at 1140, For 1 dose, PACU (only), If patient does not respond to ondansetron or haloperidol. (order of antiemetic administration - ondansetron then haloperidol then granisetron) * 1412 (Given - Provider: Xin Martin R.N.) HYDROmorphone (PF) injection 0.2 mg (Dilaudid) (COMPLETED) 0.2 mg, intravenous, Every 5 min PRN, moderate pain or score 4-6 of 10, severe pain or score 7-10 of 10, Starting on Juliet 09/13/25 at 1140, For 5 doses, PACU (only) * 1255 (Given - Provider: Jero ProS.NFei, R.N.) * 1315 (Given - Provider: Jero ProS.N., R.N.) * 1321 (Given - Provider: Jero ProS.N., R.N.) * 1329 (Given - Provider: Melba Pro.S.N., R.N.) * 1335 (Given - Provider: Melba Pro.S.N., R.N.) * 1341 (Given - Provider: Melba Pro.S.NFei, R.N. - Comment: per Dr. Arndt) NaCl 0.9% infusion 1-999 mL/hr, intravenous, As needed, Between Consecutive Piggyback Medications, Starting on Juliet 09/13/25 at 1412, For 7 days, Infuse at the same rate as the piggyback until tubing clears or up to a volume of 20 mL. Select for IV medication administration when no maintenance IV available or when IV m edications are not compatible with maintenance fluid. NaCl 0.9% infusion 1-999 mL/hr, intravenous, As needed, Post Medications (Hazardous/Low Fluid Volume), Starting on [facility]11/14/24 at 1412, For 7 days, Infuse at the same rate as the medication until tubing cleared of medication, then discard. NaCl 0.9% infusion 1-999 mL/hr, intravenous, As needed, Between Consecutive Piggyback Medications, Starting on Juliet 09/13/25 at 1741, For 7 days, Infuse at the same rate as the piggyback until tubing clears or up to a volume of 20 mL. Select for IV medication administration when no maintenance IV available or when IVmedications are not compatible with maintenance fluid. NaCl 0.9% infusion 1-999 mL/hr, intravenous, As needed, Post Medications (Hazardous/Low Fluid Volume), Starting on [facility]11/14/24 at 1741, For 7 days, Infuse at the same rate as the medication until tubing cleared of medication, then discard. naloxone injection 0.2 mg (Narcan) 0.2 mg, intravenous, As needed, respiratory depression, Starting on Juliet 09/13/25 at 1722, For RASS Score -4 or less, respiratory rate of less than 8 breaths/min. Notify provider/service and rapid response team (if available at institution). ondansetron (PF) injection 4 mg (Zofran) 4 mg, intravenous, Every 6 hours PRN, nausea, vomiting, Starting on Juliet 09/13/25 at 1722 * 1942 (Given - Provider: Oralia Hawkins RFeiN.) oxyCODONE IR tablet 10 mg (Roxicodone)(Linked Group 1) 10 mg, oral, Every 4 hours PRN, severe pain or score 7-10 of 10, May use if patient can take oral meds and other analgesics are ineffective, Starting on Juliet 09/13/25 at 1315 * 1317 (Given - Provider: Debra Pro, R.N.) oxyCODONE IR tablet 5 mg (Roxicodone)(Linked Group 1) 5 mg, oral, Every 4 hours PRN, moderate pain or score 4-6 of 10, May use if patient can take oral meds and other analgesics are ineffective, Starting on Juliet 09/13/25 at 1315 * 1317 (See Alternative - Provider: Debra Pro, R.N.) polyethylene glycol powder packet 17 g (Miralax) 17 g, oral, Daily PRN, constipation, Starting on Juliet 09/13/25 at 1722, Ordered sequence of administration: polyethylene glycol, then bisacodyl until BM achieved. Avoid mixing with starch-based thickened liquids. simethicone chewable tablet 160 mg 160 mg, oral, 4 times daily PRN, flatulence, Starting on Juliet 09/13/25 at 1835 simethicone chewable tablet 80 mg (CANCELED) 80 mg, oral, 4 times daily PRN, flatulence, Starting on Juliet 09/13/25 at 1408, PACU (only) * 1413 (Given - Provider: Xin Martin R.N.) sodium chloride 0.9 % injection 10 mL 10 mL, intravenous, As needed, line care, Starting on Juliet 09/13/25 at 1722, Peripheral Intravenous Catheter and Rapid Infusion Catheter, prior to blood sampling, post blood transfusion or post blood sampling sodium chloride 0.9 % injection 10 mL 10 mL, intravenous, As needed, line care, Peripheral Intravenous Catheter and Rapid Infusion Catheter, Starting on Juliet 09/13/25 at 1412, Prior to blood sampling, post blood transfusion or post blood sampling. sodium chloride 0.9 % injection 10 mL 10 mL, intravenous, As needed, line care, Peripheral Intravenous Catheter and Rapid Infusion Catheter, Starting on Juliet 09/13/25 at 1741, Prior to blood sampling, post blood transfusion or post blood sampling. sodium chloride 0.9 % injection 3 mL 3 mL, intravenous, As needed, line care, Starting on Juliet 09/13/25 at 1722, Prior to and following infusion and between multiple consecutive infusions: sodium chloride 0.9 % injection sodium chloride 0.9 % injection 3 mL 3 mL, intravenous, As needed, line care, Peripheral Intravenous Catheter and Rapid Infusion Catheter, Starting on Juliet 09/13/25 at 1412, Prior to and following infusion and between multiple consecutive infusions. sodium chloride 0.9 % injection 3 mL 3 mL, intravenous, As needed, line care, Peripheral Intravenous Catheter and Rapid Infusion Catheter, Starting on Juliet 09/13/25 at 1741, Prior to and following infusion and between multiple consecutive infusions. trospium tablet 20 mg (Sanctura) 20 mg, oral, 2 times daily PRN, bladder spasms, Starting on Juliet 09/13/25 at 1722, Administer with water at least 1 hr prior to meals. Order Group 1: oxyCODONE IR tablet 5 mg (Roxicodone)Jump to med 5 mg, oral, Every 4 hours PRN, moderate pain or score 4-6 of 10, May use if patient can take oral meds and other analgesics are ineffective, Starting on Juliet 09/13/25 at 1315 Or oxyCODONE IR tablet 10 mg (Roxicodone)Jump to med 10 mg, oral, Every 4 hours PRN, severe pain or score 7-10 of 10, May use if patient can take oral meds and other analgesics are ineffective, Starting on Juliet 09/13/25 at 1315 documented in this encounter Care Teams Team MemberRelationshipSpecialtyStart DateEnd Date Elsewhere, Pcp PCP - GeneralInternal Medicine04/18/25documented as of this encounter
--- OUTSIDE RECORDS SUMMARY | 2025-09-13 07:15 | XMS_ITS | Encounter Summary ---
Author Organization [facility] Address [address] [place] [id number] Care Team Providers Care Director Of Primary Care Name Role Phone Elsewhere, Pcp Primary Care Provider Unavailabl e Encounter Details DateTypeDepartmentCare Team (Latest Contact Info)Ioyosuwzbwb07/18/2025 7:15 AM URGENT CARE PHYSICIAN ASSISTANT - 09/13/2025 12:58 PM CSTSurgery RST [facility] MAIN OR [address] [place] [address] Rupert Loving M.D. [address] [place] [address] ROBOTIC-ASSISTED PYELOPLASTY. Social History Tobacco UseTypesPacks/DayYears UsedDateSmoking Tobacco: NeverSmokeless Tobacco: NeverAlcohol UseStandard Drinks/WeekCommentsNever0 (1 standard drink = 0.6 oz pure alcohol)Humiliation, Afraid, Rape, and Kick questionnaireAnswerDate RecordedWithin the last year, have you been afraid of your partner or ex-partner?Patient unable to oyivif5509/13/2025Within the last year, have you been humiliated or emotionally abused in other ways by your partner or ex-partner? Patient unable to xhqtsc5509/13/2025Within the last year, have you been kicked, hit, slapped, or otherwise physically hurt by your partner or ex-partner?Patient unable to bulaqe0209/13/2025Within the last year, have you been raped or forced to have any kind of sexual activity by your partner or ex-partner?Patient unable to lmiifq7109/13/2025Hunger Vital SignAnswerDate RecordedWithin the past 12 months, [...] have received?Associate degree: occupational, technical, or vocational kilfmjp4205/27/2020Comments NoSex and Gender InformationValueDate RecordedSex Assigned at BirthFemale 02/19/2025 10:16 AM CDTLegal RkjSbrxbk38/02/2017 2:16 PM CSTGender Identity Myupnr9202/19/2025 10:16 AM CDTSexual GjkbpneytguLmwpkcdo17/26/2025 10:16 AM CDT documented as of this encounter Last Filed Vital Signs Vital SignReadingTime TakenCommentsBlood Fejhiraq897/6609/13/2025 12:45 PM URGENT CARE PHYSICIAN ASSISTANT Lcnkh127009/13/2025 12:58 PM RIXKtiypheorvw53.9 ??C (96.6 ??F)09/13/2025 12:45 PM CSTRespiratory Vsfd284111/14/2024 12:58 PM CSTOxygen Imnbpnsnrb06%09/13/2025 12:58 PM CSTInhaled Oxygen Concentration--Umnctm40.9 kg (169 lb 8.5 oz)09/13/2025 6:17 AM UOZGhxdog092 cm (5' 2.6)09/13/2025 6:17 AM CSTBody Mass Index30.42111/14/2024 6:17 AM CSTdocumented in this encounter Functional Status * Patient VerificationQuestionAnswerDate of AssessmentAuthorBlood transfusion or in past 5 months?No09/13/2025 6:18 AM CSTDillan Randolph M.SFeiN., R.N.Beta Romelia AdministeredNot xcxpvuiyib71/18/2025 6:18 AM Dillan Nayak M.SFeiN., R.N. * Score InterpretationAnswerDate of AssessmentAuthorLow risk09/13/2025 6:04 PM Lori Cordova R.N. * Obstructive Sleep Apnea ScreenQuestionAnswerDate of AssessmentAuthorPatient has a diagnosis of obstructive sleep apnea? 6:18 AM Dillan Nayak M.SFeiNFei, R.N. * Vital SignsQuestionAnswerDate of AssessmentAuthorRichmond Agitation Sedation Scale (RASS) 12:15 PM Camelia Banks, R.N. * Faustino ScaleQuestionAnswerDate of AssessmentAuthorSensory Perceptions4 09/14/2025 9:02 AM Camelia Banks R.N.Qkbecvnk055/19/2025 9:02 AM Camelia Wang R.N.Govqcrjm834/19/2025 9:02 AM Camelia Banks R.N. Jviayzvc920/19/2025 9:02 AM Camelia Banks R.N.Famphnfgo510/19/2025 9:02 AM Camelia Banks R.N.Friction and Ciwvr82711/15/2024 9:02 AM Camelia Banks R.N.Faustino Scale Nweri3237 9:02 AM Camelia Banks, R.N. * Advance DirectivesQuestionAnswerDate of AssessmentAuthorAdvance Directive Patient has advance directive, copy not in chart09/13/2025 6:03 PM Lori Cordova RFeiN. * Delirium Triage Screen (DTS)QuestionAnswerDate of AssessmentAuthorAsk the patient to spell LUNCH backwards.0-1 error - DTS negative. End of assessment.09/14/2025 9:02 AM Camelia Banks R.N. * Activity/MobilityQuestionAnswerDate of AssessmentAuthorRepositioning Sensor Remains in place09/14/2025 9:02 AM Camelia Banks RFeiN. * EvaluationsQuestionAnswerDate of AssessmentAuthorBased on your nursing assessment, would this patient/family benefit from a spiritual care consult fo r spiritual or emotional needs?No09/13/2025 6:04 PM Lori Cordova RFeiN. * NPOQuestionAnswerDate of AssessmentAuthorTime of last wptvgw3910553/18/2025 6:09 AM Dillan Nayak M.S.N., R.N.Date of last jwcsdm23178 09/13/2025 6:09 AM Dillan Nayak M.S.N., R.N.Date of last ojifx8222606/18/2025 6:09 AM Dillan Nayak M.S.N., R.N.Time of last hazop9682169/18/2025 6:09 AM Dillan Nayak M.S.N., R.N. * [...] 6:18 AM Dillan Nayak M.S.N., R.N.STOP-BANG Total Dphfi452 6:18 AM Dillan Nayak M.S.N., R.N. * Modified Gusman ScoreQuestionAnswerDate of AssessmentAuthorMotor Activity2 09/13/2025 4:05 PM Chrissy Acevedo R.N.Pudkmwuvexx055/18/2025 4:05 PM Chrissy Joyce R.N.Klebnjgckwcjm222/18/2025 4:05 PM Chrissy Acevedo R.N. Oxygen Dqhwvcwoip015/18/2025 4:05 PM Chrissy Acevedo R.N.Modified Gusman Zzmvg9160/18/2025 4:05 PM Chrissy Acevedo R.N.Systolic BP2111/14/2024 4:05 PM Chrissy Acevedo R.N. * Audit ScoreAnswerDate of JjjehmzvcwNejlxw401/18/2025 6:04 PM Lori Cordova R.N. * BMI: Desirable <25, High Risk >30AnswerDate of UxxwntwejoZshkwiLrfc43/18/2025 2:11 PM Yani Zuniga R.N. * Fall RiskQuestionAnswerDate of AssessmentAuthorHave you fallen within the last year or do you fear you might fall?No09/13/2025 6:22 AM Dillan Nayak M.S.NFei, R.N.Do you use an assisted device to walk? (Walker, cane, wheelchair, crutch)Yes09/13/2025 6:22 AM Dillan Nayak M.S.NFei, R.N. * Spiritual Care/Moto Mix Operator AssessmentQuestionAnswerDate of AssessmentAuthorDo you struggle with the loss of meaning or chuckie in your life?No09/13/2025 6:04 PM Lori Cordova RFeiN.Do you currently have what you would describe as spiritual or temple struggle(s)?No09/13/2025 6:04 PM Lori Cordova, RFeiN. * Bedside Mobility Assessment Tool (BMAT)QuestionAnswerDate of AssessmentAuthor Mobility Level (calculated)Mobility Level 9:02 AM Camelia Banks, R.N.Mobility Assessment Level 1: Sit and XhwefJkel13/19/2025 9:02 AM Camelia Wang, RFeiNFeiMobility Assessment Level 2: Stretch and PointPass 09/14/2025 9:02 AM Camelia Banks, R.NFeiMobility Assessment Level 3: Stand Pass09/14/2025 9:02 AM Camelia Banks, R.NFeiMobility Assessment Level 4: Modified PicdhjyrczotNrbp25/19/2025 9:02 AM Camelia Banks R.N.Mobility Level 1 DevicesL1 - Ceiling Lift09/14/2025 9:02 AM Camelia Banks R.N. Mobility Level 3 DevicesL3 - Gait belt;L3 - Pfqvqu6909/14/2025 9:02 AM Camelia Banks R.N. * Additional Fall Risk IndicationQuestionAnswerDate of AssessmentAuthor Clinically assessed at higher fall risk?Yes09/14/2025 9:02 AM Camelia Banks R.N. * AnthropometricsQuestionAnswerDate of AssessmentAuthorBMI (Calculated)30.4 09/13/2025 2:11 PM Yani Zuniga R.N. * Pain AssessmentQuestionAnswerDate of AssessmentAuthorResponse to Interventions Reports no side ytaecvv6109/14/2025 6:00 AM Lee Ann Smith R.N.Pain QsttabpfUvbd04/19/2025 6:00 AM Lee Ann Smith R.N.Pain Orientation Right09/14/2025 6:00 AM Lee Ann Smith R.N.Pain Interventions Medication (See MAR)09/14/2025 6:00 AM Lee Ann Smith R.N.Pain DescriptorsAching;Sharp09/13/2025 5:24 PM Camelia Banks R.N.Pain Onset Lwhntoa2009/13/2025 5:24 PM Camelia Banks R.N.Pain Frequency Constant/mqsfwgkwie84/18/2025 5:24 PM Camelia Banks R.N.Pain TypeAcute pain09/14/2025 6:00 AM Lee Ann Smith R.N.Clinical ProgressionNot agzeopt1409/13/2025 5:24 PM Camelia Banks R.N.Pain Wlzub00411/15/2024 6:14 AM Lee Ann Smith R.N. * IntegumentaryQuestionAnswerDate of AssessmentAuthorPreventative Skin Action Prophylactic foam border dressing to sacrum/qbxepi2409/14/2025 9:02 AM CSTBehm, Camelia N, R.N. * Sedation ScalesQuestionAnswerDate of AssessmentAuthorSedation Scale Used Lozano Agitation Sedation Scale09/14/2025 9:02 AM Camelia Banks R.N. * Waleska Rapp Fall Risk Assessment ScaleQuestionAnswerDate of AssessmentAuthor Last Known Tdml91811/15/2024 9:02 AM Camelia Banks R.N.Mobility1;2 09/14/2025 9:02 AM Camelia Banks R.N.Stefdxrfmig137/19/2025 9:02 AM Camelia Wang R.N.Mental Status/LOC/Oxqybvkfr728/19/2025 9:02 AM Camelia Banks R.N.Toileting Tamrp146 9:02 AM Camelia Banks R.N. Volume/Electrolyte Kihvtg231 9:02 AM Camelia Banks R.N. Communication/Gfdyygm230 9:02 AM Camelia Banks R.N.Behavior0 09/14/2025 9:02 AM Camelia Banks R.N.Waleska Rapp Fall Risk Total9 09/14/2025 9:02 AM Camelia Banks R.N. * Fall Risk Scale and AssessmentsQuestionAnswerDate of AssessmentAuthorFall Risk ScaleHester Dionte09/14/2025 9:02 AM Camelia Banks R.N. * Overall bCAM scoreAnswerDate of VzsdmvlzkqKpcaqsBvshgwyv27/18/2025 8:00 PM URGENT CARE PHYSICIAN ASSISTANT Kaylah Bach R.N. * Brief Confusion Assessment Method (bCAM)QuestionAnswerDate of AssessmentAuthor Feature 1: Altered Mental Status or Fluctuating IocwmsOlcilnmu17/18/2025 8:00 PM Kaylah Clay R.N. * Audit-C Total Score (max 12)AnswerDate of XbxuijcsrvHcvjvo881/18/2025 6:04 PM Lori Cordova RFeiN. * Audit-C Alcohol ScreeningQuestionAnswerDate of AssessmentAuthorHow often do you have a drink containing alcohol? 6:04 PM Lori Cordova R.N. * Patient PreparationQuestionAnswerDate of AssessmentAuthorPre-Procedure Prep None09/13/2025 6:18 AM Dillan Nayak M.S.NFei, R.N.Oral Care Beattie teeth09/13/2025 6:18 AM Dillan Nayak M.SFeiNFei, R.N. * Early Screen for Discharge PlanningQuestionAnswerDate of AssessmentAuthorSelf- rated Walking Zxersvvnkn843/18/2025 6:05 PM Lori Cordova R.N.Age in Qoldm57211/14/2024 6:05 PM Lori Cordova R.N.Prior Living Status0 09/13/2025 6:05 PM Lori Cordova R.N.[place] Disability Score3 09/13/2025 6:05 PM Lori Cordova R.N.ESDP Fbhwk1802/18/2025 6:05 PM Lori Cordova R.N. * Exparel?? / Zynrelef??QuestionAnswerDate of AssessmentAuthorHave you had a procedure outside of [facility] in the past 4 days? (Select Yes if the patient iswearing an Exparel?? or a Zynrelef?? armband.)No09/13/2025 6:18 AM Dillan Nayak M.SFeiNFei, R.N. * Fall Prevention InterventionsQuestionAnswerDate of AssessmentAuthorUniversal Fall Precautions in RrzfbEqc57/19/2025 9:02 AM Camelia Banks RFeiN. Mobility InterventionsAssist device;Gait belt;09/14/2025 9:02 AM Camelia Banks RFeiN.Medication InterventionsDangle at bedside;09/14/2025 9:02 AM Camelia Banks RFeiNFeiToileting Needs InterventionsAbsorbent incontinence pads09/14/2025 9:02 AM Camelia Banks R.NFeiVolume/Electrolyte Status InterventionsEmesis basin within reach;WAR09/14/2025 9:02 AM Camelia Banks R.N.Communication/Sensory InterventionsAmbient light;Sensory aids on;WAR 09/14/2025 9:02 AM Camelia Banks RFeiN. * Delirium Prediction Tool ScoreQuestionAnswerDate of AssessmentAuthorDelirium Surgical Score (Butane Compressor Operator Use Only)0.0909/14/2025 6:00 AM CSTSystem, Provider Not In * AUDIT-C InterpretationAnswerDate of PpdxkeichuXtkfrkLwfvyrww56/18/2025 6:04 PM CSTLori Weiss R.N. documented as of this encounter Mental Status * [place] Coma ScaleQuestionAnswerEntry DateAuthorEye Rdbnwfj832/19/2025 9:02 AM Camelia Banks RFeiN.Best Motor Qbbttpod449/19/2025 9:02 AM Camelia Banks R.N.Best Verbal Tvjqizyl711/19/2025 9:02 AM Camelia Banks RFeiN.Dharmesh Coma Scale Wnnjq6603/19/2025 9:02 AM Camelia Banks RFeiN. documented in this encounter Discharge Summaries * Neetu Simon M.D., M.Ed. - 09/14/2025 10:34 AM CST DISCHARGE SUMMARY BRIEF OVERVIEW Hospital: [facility] Discharge Provider: Rupert Loving M.D. Primary [facility] - [place] Primary Care Providers: [...] URETEROSCOPY., STENT PLACEMENT - INTERNAL Rupert Loving M.D.Neetu Simon M.D., M.Ed. [facility] DISPOSITION Home or Self [...] spent in discharge services today: 20 minutes. NT CARE PHYSICIAN ASSISTANT documented in this encounter Discharge Instructions * Discharge Instructions* Dre Barcenas - 09/14/2025 7:37 AM URGENT CARE PHYSICIAN ASSISTANT You were [facility] - [place] Service. Please identify this service nameif you call with questions after hospitalization. NT CARE PHYSICIAN ASSISTANT * Patient Instructions* Janie Sanchez R.N. - 09/14/2025 9:45 AM URGENT CARE PHYSICIAN ASSISTANT [place] [employer] is a service of the [place] [employer]ging in partnership with [place]'s Area Agencies on Aging. It is a free service of the [facility] that connects older [place]ans and their families with the help they need. Call the [place] Aging Pathway Line?? at: [phone] M-F, 8am-4:30pm to connect with specialists that are available to assist you with your specific needs or check out their website at https://[place].gov/aging-pathways/ NT CARE PHYSICIAN ASSISTANT * Attachments The following attachments cannot be sent through Care Everywhere. * Polyethylene Glycol 3350 (By mouth) (Spanish) * Simethicone (By mouth) (Spanish) * Tamsulosin (By mouth) (Spanish) * Trospium (By mouth) (Spanish) documented in this encounter Medications at Time [...] Acute Pain. 8 tablet 09/14/2025 12:37 PM [facility]09/14/2025 polyethylene glycol (Miralax) 17 gram powder packet [...] Subjective POD 1 from R pyeloplasty LAZ AFVSS She looks and feels great this morning [...] & Screen Expiration 09/16/2025 23:59 Testing Location [facility] Blood Gas with Coox, Arterial Collection Time: [...] Neetu Simon M.D., M.Ed. 09/14/2025 5:25 AM URGENT CARE PHYSICIAN ASSISTANT NT CARE PHYSICIAN ASSISTANT * Gino Ruiz - 09/13/2025 7:15 AM CST [facility] Spiritual Care Progress Note Patient: Sun Singh Age:85 y.o. Location: [facility] Reason(s) for encounter: Spiritual support as part of the interdisciplinary care team. Yazidi Identification / Spiritual Practices: Zoroastrianism. Spiritual Needs and/or Concerns: Mrs. Singh welcomed prayer before surgery. Shared prayer. Spiritual Care interventions: Introduced the role as member of the interdisciplinary care team with the aim of establishing spiritual therapeutic rapport with patient and/or family Facilitated temple/spiritual practices (prayer, blessing, sacred texts, temple item) with theaim to reinforce patient's spiritual wellness and connection with source of sacredness. Spiritual Care outcomes: Patient/family was appreciative of spiritual care support. Spiritual Care Plan / Recommendations: Will remain available for spiritual care as needed or requested. Chaplains can be contacted by paging [phone] ([place]) or [phone] (Hinduism). NT CARE PHYSICIAN ASSISTANT * Kali Ponce, PharmFeiD., R.Ph. - 09/13/2025 6:22 AM CST Images from the original note were not included. Admission Medication History Note Adherence issues: No concerns Medication list source: Patient Medication related information: -has not taken dabigatran for several months. 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 at 09/13/2025 6:22 AM Taking? Last [...] -- -- -- -- 220 mg daily. NT CARE PHYSICIAN ASSISTANT documented in this encounter Consult Notes * Janie Sanchez R.N. - 09/14/2025 9:44 AM CSTAssociated Order(s): IP CONSULT TO CARE MANAGEMENT Discharge Planning Assessment SUBJECTIVE Assessment Information Referral Data Referral Source: Early Screen for Discharge Planning Referral Name: ESDP 11 Previous Assessment: No Backfiller Services Used: No Primary Language: Spanish Backfiller Services Used: No Person(s) Present During Interview: patient History of Present Illness #1 Hydronephrosis With Ureteropelvic Junction Obstruction Social History Marital Status: Support System: spouse, children, and friends/neighbors Primary Caregiver: self Social Drivers of Health with Concerns No concerns present OBJECTIVE Finance/Insurance Primary insurance: MEDICARE A AND B Secondary insurance: [employer] benefits: No Advance Directives Legal Decision Maker: Self Advance Directives: Power of Spa Manager for health care Advance Directives Status: Not Activated Baseline Functional Status Baseline Activities of Daily Living Mobility: Requires aide of device Dressing: Independent Feeding: Independent Bathing: Independent Grooming: Independent Toileting: Independent Behavior: Appropriate, Calm, Pleasant, Cooperative Communication: Talks, Understands speaking, Understands Spanish Shopping: Needs assistance Medication Management: Independent Housekeeping: [...] Primary Care Physician Family Medicine 03/06/25 Address: [address] [facility] [address] Joann Motta D.O. External Primary Care Physician Family Medicine 04/18/25 Address: [address] [place] [phone] Services/Resources: Housekeeping, Lawn care, Snow removal Additional [...] Provider: marina Radha Phone Number for Ride/Caregiver: [phone] Anticipated Discharge Destination: Home or Self Care Referrals Initiated: None ASSESSMENT / PLAN ASSESSMENT: The emulsion coater met with Sun Singh to discuss her [...] been completed by patient, patient's daughter, and restaurant and bar manager. emulsion coater met with patient this morning to address [...] provided by her spouse, daughter, and son. wind field service manager reviewed the [facility] Discharge Planning Guide (SE9304-64) and provided a copy to patient/decision maker. Patient acknowledges understanding of the discharge process, expectations,and potential consequences of non-participation in discharge planning. emulsion coater provided the [place] [employer] handout. - Based on this assessment, no skilled post-hospital discharge care needs have been identified thatrequire the assistance of the Care Management Team. - Patient is not aligned with [facility] Accountable Care Organization ([facility] ACO [place] Registry)and does not qualify for the 3-Day Fpc Facility (SNF) Rule Waiver, allowing admission to a SNF without the standard three-day inpatient hospital stay. If qualified, broad referrals will be sent to facilities within the ACO network if a skilled need has been identified. emulsion coater recommendations include: discussing needed assistance with family, [...] dismissal will be provided by family--Radha gray ([phone]). emulsion coater encouraged the patient to reach out with any questions/concerns. Care Management will continue to assess for homegoing needs with the interdisciplinary team. Signed by: Janie Sanchez R.N. 09/14/2025 NT CARE PHYSICIAN ASSISTANT documented in this encounter Nursing Notes * Camelia Bertrand R.N. - 09/14/2025 12:26 PM CST Patient discharged home to self care with belongings via wheelchair. Patient refused transport, a family member pushed patients wheelchair. Went over AVS, all questions answered. Electronically signed by: Camelia Bertrand R.N. 09/14/2025 12:27 PM URGENT CARE PHYSICIAN ASSISTANT NT CARE PHYSICIAN ASSISTANT * Camelia Bertrand R.N. - 09/14/2025 12:26 [...] by: Camelia Bertrand R.N. 09/14/2025 12:26 PM URGENT CARE PHYSICIAN ASSISTANT Problem: Risk for Compromised Skin Integrity-Other Winchman/Crane Operator(s) Goal: Risk for Compromised Skin Integrity-Other Winchman/Crane Operator(s) Outcome: Adequate for Discharge Problem: Risk for Compromised Skin Integrity-Faustino Activity Score 3 Goal: Achieve optimal activity to maintain or improve skin integrity. Outcome: Adequate for Discharge NT CARE PHYSICIAN ASSISTANT documented in this encounter OR Notes * Op Note - Neetu Simon M.D., M.Ed. 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 The patient was [...] We closed fascia of the 12 mm critical care physician assistant port under direct visualization with #1 [...] Rupert Loving M.D. at 09/18/2025 1:30 PM URGENT CARE PHYSICIAN ASSISTANT NT CARE PHYSICIAN ASSISTANT NT CARE PHYSICIAN ASSISTANT documented in this encounter Miscellaneous Notes * Hospital Course - Neetu Simon M.D., M.Ed. - 09/14/2025 7:00 AM URGENT CARE PHYSICIAN ASSISTANT SURGICAL PROCEDURE: A robotic assisted RIGHT pyeloplasty [...] Results Component Value Date WBC 8.4 09/14/2025 NT CARE PHYSICIAN ASSISTANT NT CARE PHYSICIAN ASSISTANT documented in this encounter Plan of Treatment DateTypeDepartmentCare Team (Latest Contact Info)Imzvdxjkiub68/03/2026 8:00 AM CSTProcedure visit Department of Urology in [place], [place] [address] [place] [address] Rupert Loving M.D. [address] [place] [address] NameTypePriorityAssociated DiagnosesOrder ScheduleUS Kidneys Bilateral with BladderImagingRAD - Routine (most inpatients and all outpatients) Hydronephrosis With Ureteropelvic Junction Obstruction Expected: 12/13/2025 (Approximate), Expires: 12/13/2026asic Metabolic PanelLab Routine Hydronephrosis With Ureteropelvic Junction Obstruction Expected: 12/13/2025 (Approximate), Expires: 12/13/2026NameTypePriority Associated DiagnosesOrder ScheduleUrology office visit (clinic)Outpatient ReferralRoutineExpected: 12/13/2025 (Approximate), Expires: 12/13/2026documented as of this encounter Procedures Procedure NamePriorityDate/TimeAssociated DiagnosisCommentsCBC WITHOUT DIFFERENTIAL, ONhzfpur74/19/2025 12:35 AM URGENT CARE PHYSICIAN ASSISTANT BASIC METABOLIC PANEL, S/RZjqvdrf75/ 12:35 AM URGENT CARE PHYSICIAN ASSISTANT PULSE OXIMETRY WITH REMOTE ARHXRNWFHajtfpo51/18/2025 6:18 PM CSTPULSE OXIMETRY WITH REMOTE FDBRVHOEVirvvjt02/18/2025 6:18 PM CSTADULT OXYGEN THERAPYRoutine 09/13/2025 5:23 PM CSTADULT OXYGEN QDXLOTKTqaixyo55/18/2025 5:23 PM CSTADULT OXYGEN VLLVGISYqtbjeg28/18/2025 5:23 PM CSTADULT OXYGEN FSOITSSNmmxzpx51/18/2025 11:40 AM CSTPATIENT STATUS, TXVMVPZ72/18/2025 8:32 AM URGENT CARE PHYSICIAN ASSISTANT SODIUM, BSTAT111/14/2024 8:32 AM URGENT CARE PHYSICIAN ASSISTANT ABG W/OZVMUARC66/18/2025 8:32 AM URGENT CARE PHYSICIAN ASSISTANT POTASSIUM, BSTAT111/14/2024 8:32 AM URGENT CARE PHYSICIAN ASSISTANT GLUCOSE, WHOLE NGMKTEKNC35/18/2025 8:32 AM URGENT CARE PHYSICIAN ASSISTANT CALCIUM, IONIZED, S/BSTAT111/14/2024 8:32 AM URGENT CARE PHYSICIAN ASSISTANT TYPE AND ZZVKIFJstwquu65/18/2025 8:20 AM URGENT CARE PHYSICIAN ASSISTANT STENT PLACEMENT - WUHSJSXT52/18/2025 7:24 AM URGENT CARE PHYSICIAN ASSISTANT 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 GBJXSWIOAAKT73/18/2025 7:24 AM URGENT CARE PHYSICIAN ASSISTANT 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 ROBOTIC-ASSISTED IVGOFAIVRCF73/18/2025 7:24 AM URGENT CARE PHYSICIAN ASSISTANT 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 documented in this encounter Results * (ABNORMAL) CBC without Differential (09/14/2025 12:35 AM URGENT CARE PHYSICIAN ASSISTANT)ComponentValueRef RangeTest MethodAnalysis TimePerformed AtPathologist SignatureHemoglobin8.3 (L)11.6 - 15.0 g/dL09/14/2025 12:51 AM UTHUQIGqjeqmajyh27.4(L)35.5 - 44.9 % 09/14/2025 12:51 AM CSTDTLErythrocytes2.93(L)3.92 - 5.13 x10(12)/L111/15/2024 12:51 AM ZSJZLIIWX95.178.2 - 97.9 fL09/14/2025 12:51 AM CSTDTLRBC Distrib Width14.612.2 - 16.1 %09/14/2025 12:51 AM CSTDTLPlatelet Ocgwm148(H)157 - 371 x10(9)/L111/15/2024 12:51 AM CSTDTLLeukocytes8.43.4 - 9.6 x10(9)/L111/15/2024 12:51 AM CSTDTLSpecimen (Source)Anatomical Location / LateralityCollection Method / VolumeCollection TimeReceived TimeBlood (Blood, Venous)09/14/2025 12:35 AM CST09/14/2025 12:44 AM URGENT CARE PHYSICIAN ASSISTANT Narrative Authorizing ProviderResult TypeResult StatusNeetu Simon M.D., M.Ed.LAB BLOOD ADD-ONFinal ResultPerforming OrganizationAddressCity/State/[place] [address], [facility] [address] * (ABNORMAL) Basic Metabolic Panel (09/14/2025 12:35 AM URGENT CARE PHYSICIAN ASSISTANT)ComponentValueRef RangeTest MethodAnalysis TimePerformed AtPathologist SignaturePotassium, S5.0 3.6 - 5.2 mmol/L111/15/2024 1:14 AM CSTDTLSodium, S133(L)135 - 145 mmol/L 09/14/2025 1:14 AM CSTDTLChloride, S55477 - 107 mmol/L111/15/2024 1:14 AM URGENT CARE PHYSICIAN ASSISTANT DTLBicarbonate, S21(L)22 - 29 mmol/L111/15/2024 1:14 AM CSTDTLAnion Mdc320 - 15 09/14/2025 1:14 AM CSTDTLBUN (Blood [...] (Blood, Venous)09/14/2025 12:35 AM CST09/14/2025 12:59 AM URGENT CARE PHYSICIAN ASSISTANT Narrative Authorizing ProviderResult TypeResult StatusNeetu Simon M.D., M.Ed.LAB BLOOD ADD-ONFinal ResultPerforming OrganizationAddressCity/State/[place] [address], [facility] DTAscension [facility] [address] [place] [address] * Patient Status (09/13/2025 8:32 AM URGENT CARE PHYSICIAN ASSISTANT)ComponentValueRef RangeTest Method Analysis TimePerformed AtPathologist QqaiqhvkoWjliekphtor28.037.0 deg C 09/13/2025 8:32 AM ZEQOGEZZVC96.570.21=AIR09/13/2025 8:32 AM CSTMETHSpecimen (Source)Anatomical Location / LateralityCollection Method / VolumeCollection TimeReceived MmxfWiwbp12/18/2025 8:32 AM CST09/13/2025 8:32 AM URGENT CARE PHYSICIAN ASSISTANT Narrative Authorizing ProviderResult TypeResult StatusSoren Alfaro M.D.LAB BLOOD NON ADD-ONFinal ResultPerforming OrganizationAddressCity/State/ZIP CodePhone Number [facility] [address] [place] [address], [facility] [place] [address] * Glucose, Whole Blood (09/13/2025 8:32 AM URGENT CARE PHYSICIAN ASSISTANT)ComponentValueRef RangeTest MethodAnalysis TimePerformed AtPathologist TqruckyakAimtsfu14629 - 140 mg/dL 09/13/2025 8:33 AM CSTMETHSpecimen (Source)Anatomical Location / Laterality Collection Method / VolumeCollection TimeReceived TimeBlood (Blood, Arterial) 09/13/2025 8:32 AM CST09/13/2025 8:32 AM URGENT CARE PHYSICIAN ASSISTANT Narrative Authorizing ProviderResult TypeResult StatusSoren Alfaro M.D.LAB BLOOD ADD-ON Final ResultPerforming OrganizationAddressCity/State/ZIP CodePhone Number [facility] [address] [place] [address] * Potassium, Blood (09/13/2025 8:32 AM URGENT CARE PHYSICIAN ASSISTANT)ComponentValueRef RangeTest Method Analysis TimePerformed AtPathologist SignaturePotassium, B3.93.6 - 5.2 mmol/L 09/13/2025 8:40 AM CSTMETHSpecimen (Source)Anatomical Location / Laterality Collection Method / VolumeCollection TimeReceived TimeBlood (Blood, Arterial) 09/13/2025 8:32 AM CST09/13/2025 8:32 AM URGENT CARE PHYSICIAN ASSISTANT Narrative Authorizing ProviderResult TypeResult StatusSoren Alfaro M.D.LAB BLOOD NON ADD-ONFinal ResultPerforming OrganizationAddressCity/State/ZIP CodePhone Number [facility] [address] [place] [address] * Sodium, B (09/13/2025 8:32 AM URGENT CARE PHYSICIAN ASSISTANT)ComponentValueRef RangeTest MethodAnalysis TimePerformed AtPathologist SignatureSodium, P479843 - 145 mmol/L111/14/2024 8:33 AM CSTMETHSpecimen (Source)Anatomical Location / LateralityCollection Method / VolumeCollection TimeReceived TimeBlood (Blood, Arterial)09/13/2025 8:32 AM CST09/13/2025 8:32 AM URGENT CARE PHYSICIAN ASSISTANT Narrative Authorizing ProviderResult TypeResult StatusSoren Alfaro M.D.LAB BLOOD NON ADD-ONFinal ResultPerforming OrganizationAddressCity/State/ZIP CodePhone Number [facility] [address] [place] [address], [facility] [address] [place] [address] * Calcium, Ionized (09/13/2025 8:32 AM URGENT CARE PHYSICIAN ASSISTANT)ComponentValueRef RangeTest Method Analysis TimePerformed AtPathologist SignatureCalcium, Ionized, B4.804.65 - 5.30 mg/dL09/13/2025 8:40 AM CSTMETHSpecimen (Source)Anatomical Location / LateralityCollection Method / VolumeCollection TimeReceived TimeBlood (Blood, Arterial)09/13/2025 8:32 AM CST09/13/2025 8:32 AM URGENT CARE PHYSICIAN ASSISTANT Narrative Authorizing ProviderResult TypeResult StatusBenvale Alfaro M.D.LAB BLOOD NON ADD-ONFinal ResultPerforming OrganizationAddressCity/State/ZIP CodePhone Number [facility] [address] [place] [address], [facility] [address] [place] [address] * (ABNORMAL) Blood Gas with Coox, Arterial (09/13/2025 8:32 AM URGENT CARE PHYSICIAN ASSISTANT)Component ValueRef RangeTest MethodAnalysis TimePerformed AtPathologist CfapqsusthK7323 (H)83 - 108 mm Hg09/13/2025 8:33 AM PLGYKYQcHI69645 - 45 mm Hg09/13/2025 8:33 AM CSTMETHpH7.397.35 - 7.45 pH09/13/2025 8:33 AM CSTMETHBase Excess-5(L)-2 - 3 mmol/L111/14/2024 8:33 AM INHOKBSLKG436(L)22 - 26 mmol/L111/14/2024 8:33 AM CSTMETHHemoglobin, B8.7(L)11.6 - 15.0 g/dL09/13/2025 8:33 AM CGEXZLED1Ma75.7 94.0 - 98.0 %09/13/2025 8:33 AM CSTMETHCOHb1.1<3.0 %09/13/2025 8:33 AM CSTMETH MetHb1.2<1.5 %09/13/2025 8:33 AM HWRTWBCUtU345.3(L)18.0 - 21.0 vol %09/13/2025 8:33 AM CSTMETHSpecimen (Source)Anatomical Location / LateralityCollection Method / VolumeCollection TimeReceived TimeBlood (Blood, Arterial)09/13/2025 8:32 AM CST09/13/2025 8:32 AM URGENT CARE PHYSICIAN ASSISTANT Narrative Authorizing ProviderResult TypeResult StatusSoren Alfaro M.D.LAB BLOOD NON ADD-ONFinal ResultPerforming OrganizationAddressCity/State/ZIP CodePhone Number [facility] [address] [place] [address], [facility] [address] [place] [address] * Type and Screen (with Reflex Antibody ID) (09/13/2025 8:20 AM URGENT CARE PHYSICIAN ASSISTANT)Component ValueRef RangeTest MethodAnalysis TimePerformed AtPathologist SignatureABORhO PosNot xurytbelun09/18/2025 9:26 AM CSTETRMAntibody ScreenNegativeNegative 09/13/2025 9:40 AM CSTETRMType & Screen Gdgwpxexso92/21/2025 23:5909/13/2025 9:26 AM CSTETRMTesting LocationRoche[place] DEFAULT 09/13/2025 8:43 AM CSTETRMSpecimen (Source)Anatomical Location / Laterality Collection Method / VolumeCollection TimeReceived TimeBlood (Blood, Venous) 09/13/2025 8:20 AM CST09/13/2025 8:43 AM URGENT CARE PHYSICIAN ASSISTANT Narrative Authorizing ProviderResult TypeResult StatusSoren Alfaro M.D.LAB BLOOD BANK TEST ORDERABLESFinal ResultPerforming OrganizationAddressCity/State/ZIP Code Phone Number [facility] [address] [place] [address], [facility] ETRM [facility] [address] [place] [address] documented in this encounter Visit Diagnoses Diagnosis 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 Given09/14/2025 6:04 AM CST1,000 rnQhnla5909/14/2025 1:08 AM CST1,000 mg benzocaine-menthoL 15-3.6 mg per lozenge 1 lozenge (CepacoL) 1 lozenge, oral, As needed, sore throat, Starting on Juliet 09/13/25 at 1722 BUPivacaine liposome (PF) 20 mL, BUPivacaine 30 mL 50 mL injection As needed, Starting on Juliet 09/13/25 at 0930, Intra-Op Given09/13/2025 9:30 AM CST50 mL cyclobenzaprine tablet 10 mg (FlexeriL) 10 mg, [...] 1140, PACU (only) Given09/13/2025 12:08 PM CST25 uatTghgw68/18/2025 11:59 AM CST25 mcgGiven 09/13/2025 11:56 AM [...] 2200 Given09/14/2025 6:04 AM CST5,000 UnitsLeft Lower JcxqnbtOteun42/18/2025 8:28 PM CST5,000 UnitsLeft Upper Arm (Back) HYDROmorphone (PF) injection 0.2 mg (Dilaudid) 0.2 mg, intravenous, Every 5 min PRN, moderate pain or score 4-6 of 10, severe pain or score 7-10 of 10, Starting on Juliet 09/13/25 at 1140, For 5 doses, PACU (only) Given09/13/2025 1:41 PM CST0.2 tuEpuec8609/13/2025 1:35 PM CST0.2 mgGiven 09/13/2025 1:29 PM [...] Starting on Juliet 09/13/25 at 1745 Rate/Dose Fvosfc2809/14/2025 6:03 AM RJC141 mL/hrNew Bag09/14/2025 3:27 AM NYO689 mL/hr100 mL/hrRate/Dose Tzxffk1309/13/2025 11:56 PM SJD464 mL/hr levothyroxine tablet 88 mcg 88 mcg, [...] Post Medications (Hazardous/Low Fluid Volume), Starting on Wed09/13/25 at 1412, For 7 days, Infuse at [...] Post Medications (Hazardous/Low Fluid Volume), Starting on Wed09/13/25 at 1741, For 7 days, Infuse at [...] patient has diarrhea. Given09/14/2025 8:51 AM CST1 avfwalGlxjh18/18/2025 8:28 PM CST1 tablet simethicone chewable tablet [...] Recently Administered Medications Times are shown in URGENT CARE PHYSICIAN ASSISTANT.Medication Order/ acetaminophen injection 1,000 mg (COMPLETED) 1,000 [...] Pre-Op, PreOp give in preprocedural area. * 06 (Given - Provider: Melba Cortes.S.N., R.N.) acetaminophen [...] * 2028 (Given - Provider: Kaylah Bach R.N.) * 0604 (Given - Provider: Lee Ann Rosenthal R.N.) ipratropium-albuteroL 0.5-2.5 mg/3 mL nebulizer solution 3 [...] * 0854 (Given - Provider: Camelia Bertrand RFeiNFei) sodium chloride 0.9 % injection 3 mL 3 mL, intravenous, Every 24 hours scheduled, First dose on Wed09/14/25 at 0900, Peripheral Intravenous Catheter and Rapid Infusion Catheter: When no infusion to maintain patency. * 0853 (Not Given - Provider: Camelia Bertrand RRedd - Reason: Order parameters not met) Medication Order09/12/20240928/ Lactated Ringer's 20 mL/hr, intravenous, Continuous, Starting [...] (Stopped - Provider: Camelia Bertrand R.N.) Medication Order// acetaminophen tablet 1,000 mg (TylenoL) (CANCELED) 1,000 mg, oral, Every 6 hours PRN, mild pain or score 1-3 of 10, Starting on Juliet 09/13/25 at 1722, For mild pain, give acetaminophen before tramadol. * 1812 (Given - Provider: Camelia Bertrand R.N.) albuterol nebulizer solution 2.5 mg 2.5 mg, nebulization, Every 4 hours PRN, shortness of breath, wheezing, Starting on Juliet 09/13/25 [id number], Albuterol nebs were interchanged for albuterol MDI [...] R.N.) * 1156 (Given - Provider: Ej Manjarrez R.N.) * 1159 (Given - Provider: Ej Manjarrez R.N.) * 1208 (Given - Provider: Ej W Burnap, R.N.) granisetron (PF) injection 1 mg (KytriL) (COMPLETED) 1 mg, intravenous, Once as needed, nausea, vomiting, Starting on Juliet 09/13/25 at 1140, For 1 dose, PACU (only), If patient does not respond to ondansetron or haloperidol. (order of antiemetic administration - ondansetron then haloperidol then granisetron) * 1412 (Given - Provider: Xin Martin RFeiN.) HYDROmorphone (PF) injection 0.2 mg (Dilaudid) (COMPLETED) [...] Post Medications (Hazardous/Low Fluid Volume), Starting on Thu111/14/24 at 1412, For 7 days, Infuse at [...] Post Medications (Hazardous/Low Fluid Volume), Starting on Thu111/14/24 at 1741, For 7 days, Infuse at [...] 1722 * 1942 (Given - Provider: Oralia Hawkins, R.N.) oxyCODONE IR tablet 10 mg (Roxicodone)(Linked Group 1) 10 mg, oral, Every 4 hours PRN, severe pain or score 7-10 of 10, May use if patient can take oral meds and other analgesics are ineffective, Starting on Juliet 09/13/25 at 1315 * 1317 (Given - Provider: Kati Gonzalez M.S.N., R.N.) oxyCODONE IR tablet 5 mg (Roxicodone)(Linked [...]
--- OUTSIDE RECORDS SUMMARY | 2025-09-13 07:45 | XMS_ITS | Encounter Summary ---
Author Organization [facility] Address [address] [place] [address] Care Team Providers Care Installer Name Role Phone Elsewhere, Pcp Primary Care Provider Unavailabl e Encounter Details DateTypeDepartmentCare Team (Latest Contact Info)Ovdomqgeucb70/18/2025 7:45 AM CSTAncillary Procedure Department of General Surgery Social History Tobacco UseTypesPacks/DayYears UsedDateSmoking Tobacco: NeverSmokeless Tobacco: NeverAlcohol UseStandard Drinks/WeekCommentsNever0 (1 standard drink = 0.6 oz pure alcohol)Humiliation, Afraid, Rape, and Kick questionnaireAnswerDate RecordedWithin the last year, have you been afraid of your partner or ex-partner?Patient unable to hejxpb5309/13/2025Within the last year, have you been humiliated or emotionally abused in other ways by your partner or ex-partner? Patient unable to qgudrf5009/13/2025Within the last year, have you been kicked, hit, slapped, or otherwise physically hurt by your partner or ex-partner?Patient unable to lpuwej2509/13/2025Within the last year, have you been raped or forced to have any kind of sexual activity by your partner or ex-partner?Patient unable to xljcnj3009/13/2025Hunger Vital SignAnswerDate RecordedWithin the past 12 months, [...] have received?Associate degree: occupational, technical, or vocational erhdiwg1105/27/2020Comments NoSex and Gender InformationValueDate RecordedSex Assigned at BirthFemale 02/19/2025 10:16 AM CDTLegal UhuLauucr49/02/2017 2:16 PM CSTGender Identity Imqluk5802/19/2025 10:16 AM CDTSexual KiwmijsnafeShtneebz65/26/2025 10:16 AM CDT documented as of this encounter Plan of Treatment DateTypeDepartmentCare Team (Latest Contact Info)Blifdhqqgnh70/03/2026 8:00 AM CSTProcedure visit Department of Urology in [place], [place] [address] [place] [address] Rupert Loving M.D. [address] [place] [address] documented as of this encounter Procedures Procedure NamePriorityDate/TimeAssociated DiagnosisCommentsSURGERY IMAGE EXAM Fzluovh5409/13/2025 7:45 AM BULB FARMWORKER documented in this encounter Results * ROBOT-Surgery Image Exam (09/13/2025 7:45 AM BULB FARMWORKER)Specimen (Source)Anatomical Location / LateralityCollection Method / VolumeCollection TimeReceived Time 09/13/2025 7:42 AM BULB FARMWORKER Narrative [facility] - 09/13/2025 11:23 AM BULB FARMWORKER This order has been created and auto-finalized to support the import of images acquired without order. The clinical documentation to support these images can be found on the encounter that produced images. Authorizing ProviderResult TypeResult StatusProvider Not In SystemIMG NON RAD IMAGING PROCEDURESFinal ResultPerforming OrganizationAddressCity/State/ZIP Code Phone Number [facility] NA documented in this encounter Visit Diagnoses Not on filedocumented in this encounter Care Teams Team MemberRelationshipSpecialtyStart DateEnd Date Elsewhere, Pcp PCP - GeneralInternal Medicine04/18/25documented as of this encounter
--- OUTSIDE RECORDS SUMMARY | 2025-09-13 07:54 | XMS_ITS | Encounter Summary ---
Author Organization [facility] Address [address] [place] [address] Care Team Providers Care Staff Air Defense Officer Name Role Phone Elsewhere, Pcp Primary Care Provider Unavailabl e Encounter Details DateTypeDepartmentCare Team (Latest Contact Info)Jvfijahvlhh41/18/2025 7:54 AM CSTAnesthesia Event [facility] [address] [place] [phone] Soren Alfaro M.D. [address] [place] [phone] Lam Manriquez APRN, PRINCIPAL SYSTEMS ARCHITECT, DNAP [address] [place] [phone] Anesthesia Record Procedure NameResponsible AnesthesiologistAnesthesia Start TimeAnesthesia Stop TimeROBOTIC-ASSISTED PYELOPLASTY. (Right)Soren Alfaro M.D.09/13/25 0754 09/13/25 6905HremGuovYhiqcSnnnkas19/18/00627816Xd StartMachine/Equipment Checked Infection Precautions Followed Procedure/Site Verified NPO Status Verified Supine Standard ASA Monitors Kilhhvb9894Eq Hlurdccru1782Jj Oebgwuzbbn4508W&S ScanType and Screen Blood Label Created with Armband Scan.0820Lab Zmixi4147 Turnover to Wcbytennybvfa6805Qqrp Ojnvn5535Nuv Ptsjqmqjfmvj1746Bhed Pmu8081 Turnover to ANE Fwovb6916Aqufiu Removal Criteria Tfq6973Xhjiqofmjy/Airway Pcwtntq4120vv stop iimi3416Kt EndI completed my handoff to the receiving staff during which we 1. Identified the patient 2. Identified the responsible provider 3. Reviewed the pertinent medical history 4. Discussed the surgical course 5. Reviewed intra-op anesthesia management and issues during anesthesia 6. Set expectations for post-procedure period 7. Allowed opportunity for questions and acknowledgement of understanding.* NameTotalfentanyl injection 50 mcg/mL250 mcg lidocaine 2% (mg) mgrocuronium 10 mg/mL udfuduwcn54 mgePHEDrine PF 5 mg/mL syringe czxedaajb42.5 mgondansetron 4 mg/2 mL injection4 mgsugammadex 100 mg/mL hinqltifx872 mgpropofol 10 mg/mL pooiemxlo556 mgaprepitant (Aponvie) injection 32 mg/4.4 mL (7.2 mg/mL)32 mgcefepime in dextrose (iso osm) IVPB 2 g (Maxipime)2 gheparin (porcine) injection 5,000 Units5,000 Unitsfurosemide (Lasix) injection 10 mg/mL20 mglabetaloL injection 5 mg/mL30 mgLactated Ringers Free Drip1,500 mLlactated ringers free jmey493 mL * Agents No agents on file. * Blood No blood administrations on file. NcjqAiaxjpqVmxnxhifiTxzlbbeObxcd39/18/25; N; Surgical; Laparoscopic; 5; Abdomen; Upper, Right; Mid, Right; Lower, Right; Movcsdzvkb57/18/25 0000 by Radha Camacho, R.N.Sivmbhpqoul19/04/25; 1126; Right; Back; 10.2 Fr.; Yes; No longer in place (removed in surgery per Ej CHRISTMAS TREE GROWER and Op Note.)08/30/25 1126 by Aster Marcano, R.N.09/13/25 1200 by Kati Gonzalez M.S.Tommy, R.N.Indwelling Urinary CatheterPlacement Date: 09/13/25; Inserted by: Dr. Simon; Size: 16 Fr.; Balloon Size: 5 mL (10 cc in the balloon); Urine Returned: Yes; Removal Date: 09/14/25; Removal Time: 0820; Removal Reason: Per order09/13/25 0000 by Radha Camacho, R.N.09/14/25 0820 by McKiness, UnaClosed/Suction Drain09/13/25; 1; RLQ; 16 Fr.; 1; Per order; Camelia ROUSSEAU09/13/25 0000 by Radha Camacho RRedd 09/14/25 1050 by Camelia Bertrand RFeiNFeiPeripheral IVPlacement Date: 09/13/25; Placement Time: 0611; Catheter Size: 18 G; Orientation: Left, Posterior; L ocation: Forearm; Site Prep: Chlorhexidine (Preferred); Technique: Anatomical landmarks; Insertion Attempts: 1; Removal Date: 09/14/25; Removal Time: 1227; Removal Reason: Patient ossrjykhjk61/18/25 0611 by Marcia Man R.N. 09/14/25 1227 by Camelia Bertrand RFeiNFeiETTPlacement Date: 09/13/25; Placement Time: 0804 (created via procedure documentation); Mask Ventilation: Easy mask; Technique: Video laryngoscopy; Type: Standard ETT; Single Lumen Tube Size: 7 mm; Cuffed: Yes; Location: Oral; Grade View: Grade 1; Insertion Attempts: 1; Placement Verification: Bilateral breath sounds, Positive ETCO2, Symmetrical chest wall movement; Removal Date: 09/13/25; Removal Time: [id number] 0804 by Milena Luz R.NFei09/13/25 1128 by Milena Luz RFeiNFeiNG/OG Tube 09/13/25; 0805; Orogastric; 16 Fr; Oral; Center; 09/13/25; 85138011/14/24 0805 by Milena Luz R.NFei09/13/25 1107 by Milena Luz R.N.Arterial Line Placement Date: 09/13/25; Placemnt Time: 0814 (created via procedure documentation); Size: 20 G; Orientation: Left; Location: Radial; Site Prep: Chlorhexidine (Preferred); Technique: Anatomical landmarks; Insertion Attempts: 1; Securement: Securement dressing, Securement device; Removal Date: 09/13/25; Removal Time: 1551; Removal Reason: Per order09/13/25 0814 by Milena Luz R.N.09/13/25 1551 by Xin Martin RReddPeripheral IVPlacement Date: 09/13/25; Placement Time: 822; Catheter Size: 18 G; Orientation: Right; Location: Hand; Removal Date: 09/14/25; Removal Time: 1226; Removal Reason: Patient yfommmvapt79/18/25822 by Milena Luz RFeiNFei09/14/25 122 by Camelia Bertrand RFeiNFeidocumented in this encounter Social History Tobacco UseTypesPacks/DayYears UsedDateSmoking Tobacco: NeverSmokeless Tobacco: NeverAlcohol UseStandard Drinks/WeekCommentsNever0 (1 standard drink = 0.6 oz pure alcohol)Humiliation, Afraid, Rape, and Kick questionnaireAnswerDate RecordedWithin the last year, have you been afraid of your partner or ex-partner?Patient unable to wyiawy4009/13/2025Within the last year, have you been humiliated or emotionally abused in other ways by your partner or ex-partner? Patient unable to szgldp0609/13/2025Within the last year, have you been kicked, hit, slapped, or otherwise physically hurt by your partner or ex-partner?Patient unable to vdozrg0509/13/2025Within the last year, have you been raped or forced to have any kind of sexual activity by your partner or ex-partner?Patient unable to voulcp4309/13/2025Hunger Vital SignAnswerDate RecordedWithin the past 12 months, [...] has the electric, gas, oil, or water [employer] threatened to shut off services in your home?No09/13/2025Housing StabilityAnswerDate RecordedWhat is your living situation today?I have a steady place to live09/13/2025EducationAnswerDate RecordedWhat is the highest level of school you have completed or the highest degree you have received?Associate degree: occupational, technical, or vocational rdgljur1505/27/2020Comments NoSex and Gender InformationValueDate RecordedSex Assigned at BirthFemale 02/19/2025 10:16 AM CDTLegal EdfQeblzn47/02/2017 2:16 PM CSTGender Identity Beakuw2802/19/2025 10:16 AM CDTSexual RhkzuamfgfqLoxxttry72/26/2025 10:16 AM CDT documented as of this encounter OR Notes * Anesthesia Postprocedure Evaluation - Santos Alvarado M.D. - 09/13/2025 3:53 PM CST Patient: Sun Singh Procedure Summary Date: 09/13/25 Room / Location: [address] / [facility] in [place], [place] Anesthesia Start: 0754 Anesthesia Stop: 1146 [...] settled. Notable Events No notable events documented. PLOYMENT SPECIALIST * Anesthesia Procedure Notes - Milena Luz [...] ETT location: oral VL device: glide scope Phoenix scope blade size: 3 Tube size: 7 [...] fellow participated in the procedure, and the ruby on rails consultant was present for the entire procedure. PLOYMENT SPECIALIST * Anesthesia Procedure Notes - Milena Luz [...] fellow participated in the procedure, and the ruby on rails consultant was present for the entire procedure. Cosigned by Soren Alfaro M.D. at 09/13/2025 8:33 AM UNEMPLOYMENT SPECIALIST PLOYMENT SPECIALIST PLOYMENT SPECIALIST * Anesthesia Preprocedure Evaluation - Soren Alfaro M.D. - 09/13/2025 7:43 AM CST Preprocedure Anesthesia & H&P Assessment Procedure Summary Date/Time: 09/13/25 0715 Procedures: ROBOTIC-ASSISTED PYELOPLASTY. (Right) URETEROSCOPY. (Right) Diagnosis: 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 [N13.1] Pre-op diagnosis: 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 [N13.1]. Location: [place] [address] / [facility] in [place], [place] Providers: Rupert Loving M.D. Pertinent components [...] with patient /legal guardian or through an director engineering. Risks/Benefits/Alternatives of Blood transfusion discussed with patient / legal guardian, includingan opportunity to ask questions and/or decline some or all transfusion therapies. The patient / legal guardian consented to the use of all blood products, as deemed medically necessary Approval to Proceed: approved for anesthesia PLOYMENT SPECIALIST documented in this encounter Plan of Treatment DateTypeDepartmentCare Team (Latest Contact Info)Ulrirezplmg54/03/2026 8:00 AM CSTProcedure visit Department of Urology in [place], [place] [address] [place] [address] Rupert Loving M.D. [address] [place] [address] documented as of this encounter Procedures Procedure NamePriorityDate/TimeAssociated DiagnosisCommentsLDA ANE ARTERIAL LINE KLKEEMWLWKglwnpp46/18/2025 8:14 AM UNEMPLOYMENT SPECIALIST ND ARTL CATH/CNULA MONITOR PTESTgexsld37/18/2025 8:14 AM UNEMPLOYMENT SPECIALIST LDA ANE ENDOTRACHEAL QWLWYSVrfiwnp99/18/2025 8:04 AM UNEMPLOYMENT SPECIALIST documented in this encounter Results * ND ARTL CATH/CNULA MONITOR PERC, LDA ANE ARTERIAL LINE INSERTION (09/13/2025 8:14 AM UNEMPLOYMENT SPECIALIST) Narrative Soren Alfaro M.D. - 09/13/2025 8:14 AM UNEMPLOYMENT SPECIALIST Soren Alfaro M.D. 09/13/2025 8:33 AM Invasive Catheter Date/Time: 09/13/2025 8:14 AM Performed by: Milena Luz, RFeiNFei Authorized by: Soren Alfaro M.D. ?? Location: [...] fellow participated in the procedure, and the ruby on rails consultant was present for the entire procedure. Authorizing ProviderRescharu Alfaro M.D.PROCEDURE/MINOR SURGICAL ORDERABLESFinal Result * LDA ANE ENDOTRACHEAL AIRWAY (09/13/2025 8:04 AM UNEMPLOYMENT SPECIALIST) Narrative Milena Luz R.N. - 09/13/2025 8:04 AM UNEMPLOYMENT SPECIALIST Milena Luz R.N. 09/13/2025 8:15 AM Airway [...] ETT location: oral VL device: glide scope Phoenix scope blade size: 3 Tube size: 7 [...] fellow participated in the procedure, and the ruby on rails consultant was present for the entire procedure. Authorizing ProviderResult TypeElaine Alfaro M.D.ANESTHESIA ORDERABLESFinal Result documented in this encounter Visit Diagnoses Not on filedocumented in this encounter Administered Medications Medication OrderMAR ActionAction DateDoseRateSite aprepitant injection (Aponvie) intravenous, As needed, Starting on Juliet 09/13/25 at 0802, Anesthesia Intra-op Given09/13/2025 8:02 AM CST32 mg cefepime in dextrose (iso osm) IVPB 2 g (Maxipime) 2 g, intravenous, at 200 mL/hr, Administer over 30 Minutes, Once, On Juliet 09/13/25 at 0615, For 1 dose, Pre-Op, Drug Monitoring Program: Pharmacist to adjust medication dosing based on indication and drug clearance factors., Indications: Prophylaxis, surgical Indications:Prophylaxis, qeyqwwljJhfhq51/18/2025 8:35 AM CST2 g ePHEDrine (PF) injection intravenous, As needed, Starting on Juliet 09/13/25 at 0836, Anesthesia Intra-op Given09/13/2025 9:56 AM CST5 twOgcev6609/13/2025 8:56 AM CST2.5 znBvucr0109/13/2025 8:42 AM CST2.5 mg fentaNYL injection (Sublimaze) intravenous, As needed, Starting on Juliet 09/13/25 at 0800, Anesthesia Intra-op Given09/13/2025 9:46 AM CST50 clbKboaa16/18/2025 9:19 AM CST50 mcgGiven 09/13/2025 8:27 AM [...] 1122, Anesthesia Intra-op Given09/13/2025 11:32 AM CST10 hjHgdig3009/13/2025 11:30 AM CST5 dnFshuu0909/13/2025 11:28 AM CST5 mg Lactated Ringer's intravenous, Continuous Infusion: Per Instructions PRN, Starting on Juliet 09/13/25 at 0758, Anesthesia Intra-op New Bag09/13/2025 8:41 AM CSTNew Bag09/13/2025 7:58 AM UNEMPLOYMENT SPECIALIST Lactated Ringer's intravenous, Continuous Infusion: Per Instructions PRN, Starting on Juliet 09/13/25 at 0825, Anesthesia Intra-op New Bag09/13/2025 8:25 AM UNEMPLOYMENT SPECIALIST lidocaine (PF) (cardiac) injection intravenous, As needed, Starting on Juliet 09/13/25 at 0800, Anesthesia Intra-op Given09/13/2025 8:00 AM CST80 mg ondansetron (PF) injection (Zofran) intravenous, As needed, Starting on Juliet 09/13/25 at 1109, Anesthesia Intra-op Given09/13/2025 11:09 AM CST4 mg propofoL injection (Diprivan) intravenous, As needed, Starting on Juliet 09/13/25 at 0800, Anesthesia Intra-op Given09/13/2025 11:00 AM CST20 hnOooui1009/13/2025 9:42 AM CST20 flLvtty9009/13/2025 9:38 AM CST20 mg rocuronium injection (Zemuron) intravenous, As needed, Starting on Juliet 09/13/25 at 0801, Anesthesia Intra-op Given09/13/2025 10:33 AM CST10 gnHikrf9609/13/2025 9:08 AM CST20 svPdwnx4809/13/2025 8:01 AM CST50 mg sugammadex injection (Bridion) intravenous, As needed, Starting on Juliet 09/13/25 at 1122, Anesthesia Intra-op Given09/13/2025 11:22 AM FOD427 mgdocumented in this encounter Care Teams Team MemberRelationshipSpecialtyStart DateEnd Date Elsewhere, Pcp PCP - GeneralInternal Medicine04/18/25documented as of this encounter
[2025-09-24 08:50] VITALS: BP 130/75; PULSE 86; RESP 18; TEMP 37.2; O2SAT 97; BMI 28.3
--- OUTSIDE RECORDS SUMMARY | 2025-09-24 08:53 | XMS_ITS | Clinical Summary ---
Author Organization [facility] Address [address] [facility] [place] [address] Phone Care Team Providers Care Stove Bottom Worker Name Role Phone Joann Motta DO Primary Care Provider [phone] Allergies Active AllergyReactionsCriticalityNoted DateCommentsAce InhibitorsOther (see comments)10/22/20065286RjejberkxqShtcagbf97/13/1104TqffdstbXxdfyyuy76/13/2022at DanderOther (see comments)01/31/2015Dust Mite ExtractAnaphylaxis,Other (see comments)High01/31/20152489UiqtgpqhiszJkbyKug78/26/3402HywoijnusjarXjqlGpa20/09/2025 MetoprololGI intolerance,Nausea,Other (see comments),Palpitations,SwellingLow 03/01/2009 Other Reaction(s): Bradycardia Reflux, leg swelling Medications MedicationSigDispense QuantityRefillsLast FilledStart DateEnd DateStatus Synthroid 88 MCG tablet Take 88 mcg by mouth in the morning.3Active dabigatran etexilate (PRADAXA) 75 MG capsule Take 75 mg by mouth in the morning and 75 mg in the evening.03/07/2025tive metoprolol tartrate 25 MG tablet Take 12.5 mg by mouth in the morning and 12.5 mg in the evening.5Active oxyCODONE (ROXICODONE) 5 MG immediate release tablet Take 5 mg by mouth every 30 minutes as vtdkmi945Active albuterol HFA (PROVENTIL HFA;VENTOLIN HFA) 108 (90 Base) MCG/ACT inhaler INHALE 2 PUFFS BY MOUTH EVERY 4 TO 6 HOURS NEEDED FOR SHORTNESS OF BREATH OR FCPIFVZW87/04/2025tive hydrocortisone 1 % cream Apply 1 Application topically in the morning and 1 Application in the evening. 5Active ipratropium-albuterol (DUO-NEB) 0.5-2.5 mg/3 mL nebulizer solution USE ONE VIAL IN NEBULIZER EVERY SIX HOURS TQQBNV565Active Active Problems ProblemNoted DateDiagnosed DateParoxysmal atrial eeovzizrjccl03/12/2025 Assessment & Plan (03/08/2025 3:43 PM CDT): Stable. Follows with I. Sinus rhythm on examination today. Stage 3b chronic kidney jziltso9603/05/2025 Overview (03/07/2025): Creatinine 0.9-1.1 from 5132-6562. Creatinine 1.25 in July 2023 Creatinine in [...] 2025 prior to her planned travel for [place] in July for 6 months to follow. Anemia in chronic kidney nsirtxv2603/05/2025 Overview (03/05/2025): Baseline hemoglobin in the mid tens-11 range. Ferritin 125 in April 2023 Most recent hemoglobin 10.5 from December 2023. Hypertensive heart and chronic kidney disease without heart failure, with stage 1 through stage 4 chronic kidney disease, or unspecified chronic kidney disease 03/05/2025 Overview (03/05/2025): Echocardiogram January 2024: EF 60-65% with aortic valve sclerosis present and mild AR. Normal plasma metanephrines, aldosterone 11, renin 39, and renal arterial Doppler study without evidence of renal artery stenosis, all performed at [facility] 2019. Assessment & Plan (07/19/2025 2:23 PM [...] of diuretic to manage. Generalized degenerative joint gjtoprl4703/05/2025 Encounters DateTypeDepartmentCare ObhzIztkejqetov13/23/2025 2:00 PM CDTOffice Visit [facility] [place] [address] [place], [place] [address] Zachariah Porter MD Stage 3b chronic kidney disease (HCC) (Primary Dx); Hypertensive heart and chronic kidney disease without heart failure, with stage 1 through stage 4 chronic kidney disease, or unspecified chronic kidney disease from Last 3 Months Family History Medical HistoryRelationCommentsCancerBrotherHeart diseaseBrotherHeart disease FatherHeart diseaseFather's BrotherNo Known ProblemsMaternal GrandfatherNo Known ProblemsMaternal GrandmotherCancerMotherHeart diseaseMother's BrotherNo Known ProblemsMother's SisterNo Known ProblemsPaternal GrandfatherStrokePaternal GrandmotherRelationStatusCommentsBrotherDeceasedFatherDeceasedFather's Brother DeceasedMaternal GrandfatherDeceasedMaternal GrandmotherDeceasedMotherDeceased Mother's BrotherDeceasedMother's SisterDeceasedPaternal GrandfatherDeceased Paternal GrandmotherDeceased Social History Tobacco UseTypesPacks/DayYears UsedDateSmoking Tobacco: NeverSmokeless Tobacco: Never Tobacco Cessation:Counseling Given: Not Answered Alcohol UseStandard Drinks/WeekCommentsNever0 (1 standard drink = 0.6 oz pure alcohol)CommentsUnknownSex and Gender InformationValueDate RecordedSex Assigned at BirthNot on fileLegal DjaIojaie12/08/2025 2:21 PM EDTGender Identity Not on fileSexual OrientationNot on file Last Filed Vital Signs Vital SignReadingTime TakenCommentsBlood Qvvqrqqb986/7810 1:46 PM CDT Ypqxo363907/19/2025 1:46 PM CDTTemperature--Respiratory Rate--Oxygen Bzegmzkqqb49% 07/19/2025 1:46 PM CDTInhaled Oxygen Concentration--Tnctwx94.9 kg (174 lb) 07/19/2025 1:46 PM KTOFpwybb375.6 cm (5' 4)07/19/2025 1:46 PM CDTBody Mass Index29.8707/19/2025 1:46 PM CDT Plan of Treatment Health MaintenanceDue DateLast DoneCommentsPneumococcal Vaccine: 50+ Years (1 of 2 - PCV)1959Hepatitis B Vaccine (1 of 3 - Risk 3-dose series)2000 Influenza Vaccine (#1)2025 Insurance Care Teams Team MemberRelationshipSpecialtyStart DateEnd Date Joann Motta DO [address] [place] [address] PCP - GeneralFamily Medicine02/01/25
--- OUTSIDE RECORDS SUMMARY | 2025-09-24 08:53 | XMS_ITS | Encounter Summary ---
Author Organization [facility] Address [address] [place] [address] Care Team Providers Care Systems Technician Name Role Phone Elsewhere, Pcp Primary Care Provider Unavailabl e Reason for Visit * ReasonOnset DateCommentsPhone Call08/27/2025 Encounter Details DateTypeDepartmentCare Team (Latest Contact Info)Fwouatuaymt92/01/2025linical Communication Department of Urology in [place], [place] [address] [place] [address] Rupert Loving M.D. [address] [place] [address] Phone Call Social History Tobacco UseTypesPacks/DayYears UsedDateSmoking Tobacco: NeverSmokeless Tobacco: NeverAlcohol UseStandard Drinks/WeekCommentsNever0 (1 standard drink = 0.6 oz pure alcohol)[facility] UtilitiesAnswerDate RecordedIn the past 12 months has the [employer], [employer], oil, or water [employer] threatened to shut off services in your [...] 05/27/2020CommentsNoSex and Gender InformationValueDate RecordedSex Assigned at EgpuqTfforc32/26/2025 10:16 AM CDTLegal WizVgwzgj42/02/2017 2:16 PM CSTGender PbevnrcxLxhtzg05/26/2025 10:16 AM CDTSexual OrientationStraight 02/19/2025 10:16 AM CDTdocumented as of this encounter Miscellaneous Notes * Telephone Encounter - Neetu Simon M.D., M.Ed. - 09/03/2025 4:00 PM OXYGEN EQUIPMENT TECHNICIAN I spoke to the patient. Nephrostomy tube is draining clear yellow urine. She is feeling better now.Still somewhat short of breath and having some increased chest pain at night. I again reiterated recommendations given by our nursing staff to present locally for in-person evaluation likely to an emergency department given that she is having chest pain and shortness of breath after nephrostomy tube exchange. She told me that she will present to the emergency department if her symptoms fluctuate/worsen again, however at this point she is feeling better. She understood the recommendation to present for in person evaluation and appreciated the call. Neetu Simon MD, MEd EN EQUIPMENT TECHNICIAN * Telephone Encounter - Zandra Romero R.N. - 09/03/2025 11:35 AM CST Spoke to patient regarding current stabbing pain in her back. Patient rates this pain 5/10 currently, however with movement it becomes sharp stabbing pain and she states she feels like she can not breathe. Patient reports this started post neph tube exchange on 08/30 in IR. Patient reports increased shortness of breath while lying down. Patient states that she has been taking her Tylenol Arthritis drug 650 mg once in the morning and once in the afternoon and that has been helping only slightly. Patient also reports pressure in her chest and all around the front which she states ???hurts to put pressure on any area. Patient not taking any antibiotics currently however did take one morningof IR neph tube exchange procedure on 08/30. Advised patient that based on current symptoms she needs to be seen in the emergency department for further evaluation. Patient agreeable. Team notified. EN EQUIPMENT TECHNICIAN documented in this encounter Plan of Treatment DateTypeDepartmentCare Team (Latest Contact Info)Rrdsjdzyalx19/03/2026 8:00 AM CSTProcedure visit Department of Urology in [place], [place] [address] [place] [address] Rupert Loving M.D. [address] [place] [address] documented as of this encounter Visit Diagnoses Not on filedocumented in this encounter Additional Health Concerns InfectionOnset DateLast IndicatedResolved TimeMDR GNB109/02/2025 8:44 PM CSTdocumented as of this encounter Care Teams Team MemberRelationshipSpecialtyStart DateEnd Date Elsewhere, Pcp PCP - GeneralInternal Medicine04/18/25documented as of this encounter
--- OUTSIDE RECORDS SUMMARY | 2025-09-24 08:53 | XMS_ITS | Clinical Summary ---
Author Organization [facility] Address [address] [place] [address] Care Team Providers Care Deputy Clerk Of Court Name Role Phone Elsewhere, Pcp Primary Care Provider Unavailabl e Source Comments Patient records contain information from all sites at [facility]. For routine questions regarding patient records, call [phone] during business hours, M-F 8:00 AM - 5:00 PM Central Time. Record requests for emergency care only can be directed to [phone] at any time.[facility] Allergies Active AllergyReactionsCriticalityNoted DateCommentsAce InhibitorsCough 10/22/2006mlodipineEdema (Reselect Reaction)02/06/2025pixabanDiarrhea 07/09/2022at DanderWheezing (Reselect Reaction)01/31/2015House DustOther (see comments)01/31/20158520MhmoqhnghrxYnxx77/26/0789UhpuztmihsckKazuOslm20/09/2025 MetoprololPalpitations,Edema (Reselect Reaction),GI kehzkhiguel90/05/2009 Reflux, leg swelling Medications MedicationSigDispense QuantityRefillsLast FilledStart DateEnd DateStatus magnesium oxide (Mag-Ox) 400 mg (241.3 mg magnesium) tablet Take 400 mg by mouth at bedtime.Active polyethylene glycol 400 0.25 % drops,gel Administer 1-2 drops into affected eye(s) every 6 (six) hours as needed (Dry or irritated eyes).Active zinc sulfate (Zinc-220) 220 (50 mg zinc) capsule 220 mg daily.Active dabigatran etexilate (Pradaxa) 75 mg capsule Take 1 capsule (75 mg total) by mouth 2 (two) times a day. 60 capsule 1105Active DME Urological supplies Indications:Obstruction Kidney,HydronephrosisDME Order 1 Unspecified 5Active hydrocortisone 1 % cream Apply 1 Application topically 2 (two) times a day. Apply to right leg. 30 g 04/19/2025 8:37 AM CDT5Active levothyroxine (Synthroid) 88 mcg tablet Take 88 mcg by mouth daily before morning meal.3Active ipratropium-albuteroL (DuoNeb) 0.5-2.5 mg/3 mL nebulizer solution Inhale 3 mL by nebulization 4 (four) times a day as needed.5Active LORazepam (Ativan) 0.5 mg tablet Take 0.5 mg by mouth every 6 (six) hours as needed.5Active tiZANidine (Zanaflex) 2 mg tablet Take 2 mg by mouth every 6 (six) hours as needed.5Active albuterol 90 mcg/actuation inhaler Inhale 2 puffs every 4 (four) hours as needed for shortness of breath or wheezing.5Active acetaminophen (TylenoL 8 Hr) 650 mg ER tablet Take 1,300 mg by mouth every 8 (eight) hours.Active DME Urological supplies Indications:Feeling Of Incomplete Bladder Emptying,HydronephrosisDME Order 1 Unspecified 5Active Breyna 80-4.5 mcg/actuation inhaler Inhale 2 puffs 2 (two) times a day.5Active tamsulosin (Flomax) 0.4 mg 24 hr capsule Take 1 capsule (0.4 mg total) by mouth daily as needed (for flank pain). 60 capsule 09/14/2025 12:37 PM CST5Active trospium (Sanctura) 20 mg tablet Take 1 tablet (20 mg total) by mouth 2 (two) times a day as needed (for Bladder spasms). 60 tablet 12:37 PM CST5Active acetaminophen (TylenoL) 500 mg tablet Take 2 tablets (1,000 mg total) by mouth every 6 (six) hours as needed for pain. 5Active polyethylene glycol (Miralax) 17 gram powder packet Take 1 packet (17 g total) by mouth daily. Dissolve each 17 g dose in 240 mLs (8 ounces) of beverage. 30 packet 5Active oxyCODONE (Roxicodone) 5 mg immediate release tablet Indications:Acute PainTake 1 tablet (5 mg total) by mouth every 6 (six) hours as needed for severe pain or score 7-10 of 10 Indication: Acute Pain. 8 tablet 09/14/2025 12:37 PM CST5Active simethicone 125 mg chewable tablet Chew 1 tablet (125 mg total) 4 (four) times a day as needed for flatulence. 5Active sulfamethoxazole-trimethoprim (Bactrim DS) 800-160 mg per tablet Indications:Hydronephrosis With Ureteropelvic Junction ObstructionTake 1 tablet by mouth 2 (two) times a day for 3 days. Start taking day before stent removal appointment 6 tablet 09/14/2025 12:37 PM [facility]6Active cholecalciferol (VITAMIN D3) tablet Take by mouth.Discontinued(Therapy completed) SYNTHROID 100 mcg tablet Take 88 mcg by mouth daily before morning meal.Discontinued losartan (COZAAR) 25 mg tablet Take 50 mg by mouth daily.Discontinued(Therapy completed) oxyCODONE (Roxicodone) 5 mg immediate release tablet Take 5 mg by mouth every 4 (four) hours as needed. Discontinued(Duplicate order) cyclobenzaprine (FlexeriL) 10 mg tablet Take 10 mg by mouth at bedtime as needed.Discontinued albuterol 2.5 mg /3 mL nebulizer solution Inhale 2.5 mg every 4 (four) hours as needed.Discontinued metoprolol tartrate (Lopressor) 25 mg tablet Take 0.5 tablets (12.5 mg total) by mouth 2 (two) times a day. 30 tablet 11003/07/2025 5:01 PM CDTDiscontinued(Therapy completed) sulfamethoxazole-trimethoprim (Bactrim DS) 800-160 mg per tablet Indications:Obstruction Kidney,Chronic Kidney Disease (CKD), Stage 3b Glomerular Filtration Rate (GFR) 30 To 44 (HCC),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Take 1 tablet by mouth as directed. Take 1 tablet 1-2 hours prior to nephrostomy tube exchanges. 6 tablet 10:14 AM CDT06/04/2025Discontinued DME Urological supplies Indications:HydronephrosisDME Order 1 Unspecified Discontinued(Therapy completed) DME Urological supplies Indications:HydronephrosisDME Order 1 Unspecified Discontinued(Therapy completed) cephalexin (Keflex) 250 mg capsule Take 1 capsule by mouth 2 (two) times a day.Discontinued sulfamethoxazole-trimethoprim (Bactrim DS) 800-160 mg per tablet Indications:Urinary Tract Infection Site Not SpecifiedTake 1 tablet by mouth every 12 (twelve) hours for 5 days. 10 tablet Expired sulfamethoxazole-trimethoprim (Bactrim DS) 800-160 mg per tablet Indications:Obstruction Kidney,Chronic Kidney Disease (CKD), Stage 3b Glomerular Filtration Rate (GFR) 30 To 44 (HCC),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Take 1 tablet by mouth 2 (two) times a day for 2 days. 4 tablet 09/11/2025 1:31 PM CSTDiscontinued Active Problems ProblemNoted DateDiagnosed DateHydronephrosis With Ureteropelvic Junction Osufhbjvbfs72/18/4661Wdwrsflajqaz05/04/2025Obstruction Cgsulh3803/06/2025Dry Eye Syndrome Aqvwkykxe18/10/2025Pain Low Back Dvsgqgk4203/06/2025nemia In Chronic Kidney Akwcosb6903/05/2025 Overview (03/06/2025): Baseline hemoglobin in the mid tens-11 range. Ferritin 125 in April 2023 Most recent hemoglobin 10.5 from December 2023. Chronic Kidney Disease (CKD), Stage 3 Dmrlqkdwsxo34/09/2025 Overview (08/30/2025): Creatinine 0.9-1.1 from 6933-8042. Creatinine 1.25 in July 2023 Creatinine in [...] at 27% with no evidence of obstruction. AI Summary: The patient had hypertensive kidney disease stage V since 01/05/2022. The patient also had stage 3bchronic kidney disease and anemia in chronic kidney disease. Other comorbidities included hypertensive heart and chronic kidney disease without heart failure, with stage 1 through stage 4 chronic kidney disease, or unspecified chronic kidney disease. 05/08/25: Cr 1.78 mg/dL 05/08/25: GFR 28 mL/min/BSA 05/08/25: BUN 35 mg/dL On meds: cholecalciferol, losartan, metoprolol tartrate, potassium gluconate (external), zinc sulfate (external) Recent encounter dx: 06/04/25: Orders Only - Department of Radiology, [facility], in [place], [place], Radiology(from [facility]) 03/08/25: Office Visit - [facility], Nephrology (from [facility]) 03/06/25: Hospital Encounter - [facility], Fourth Floor, Telemetry Elias (from [facility]) 06/18/20: Comprehensive Visit - Division of Pulmonary Medicine in [place], [place], Pulmonary Medicine (from [facility]) 06/17/20: Hospital Encounter - Department of Laboratory Medicine and Pathology, [place], [place], Laboratory Medicine (from [facility]) Recent notes: 03/08/25: Progress Notes by Zachariah Porter MD (from [facility]) ... [+] Stage 3b chronic kidney disease (HCC) - Primary ... [+] Stage 3b chronic kidney disease (HCC) 03/07/25: Miscellaneous Notes - Assessment & Plan Note by Zachariah Porter MD (from [facility]) ... [+] Associated Problem(s): Stage 3b chronic kidney disease (HCC) 06/17/20: Consultation Note - Consult Notes (from [facility]) ... [+] #2 Hypertension And Chronic Kidney Disease Stage 3 (HCC) Atherosclerosis Ijettk0703/09/2024Unspecified Diastolic (Congestive) Heart Failure 03/09/2024eficiency Vitamin D002/17/2024iaphragmatic Hernia Without Obstruction Or Dgwvgbdd26/23/2024Urinary Tract Infection Site Not Sjswqltlq45/23/2024 Presence Of Urogenital Sbeikprz21/23/9807Fozixy06/22/2024Transient Ischemic Vfzbih2402/16/2024rossing Vessel And Stricture Of Ureter Without Hydronephrosis 5200Jpkxjwqiywoibh60/29/2024Obesity Body Mass Index 30-39.9 Adult 12/24/2023Hypertensive Chronic Kidney Disease With Stage 5 Chronic Kidney Disease Or End Stage Renal Nvctwuf1701/05/2022Nonrheumatic Aortic Valve Byxxaomdjvwhp30/14/2022Nonrheumatic Mitral Valve Bmkufgpdpdnrf85/14/2022Fibrosis Vkejvkaqy07/27/2022Gastroesophageal Reflux Ydrxdsr6410/23/2021trial Fibrillation Aouwreqgwc75/09/2020 Overview (08/30/2025): happened during her stress test. Pain Chest Wwivhsub64/22/2020Hypertension NOS06/18/2020 Overview (08/30/2025): Echocardiogram January 2024: EF 60-65% with aortic valve sclerosis present and mild AR. Normal plasma metanephrines, aldosterone 11, renin 39, and renal arterial Doppler study without evidence of renal artery stenosis, all performed at [facility] 2019. History Of Tyjjgrz0106/17/2020Hyperlipidemia Mixed11/29/2019Hypothyroidism 11/23/2019Primary Generalized Wsktiifhkaqzmm94/28/0587Vtijklqw14/01/2008 Resolved Problems ProblemNoted DateDiagnosed DateResolved DateChronic Obstructive Pulmonary Sdsrjne15Hypertensive Gzqtvpz00Injury Head Ohbzkie23Other Nonspecific Abnormal Finding Of Lung Field /12/20249750Qwlbwfeqbjus22Long Term Use Of Aspirin Tqrast31djustment Disorder Mixed Lszoecrj54 Other Specified Diseases Of Liver Encounters DateTypeDepartmentCare TovkWujuqnosjak87/19/2025linical Communication Department of Urology in [place], [place] [address] [place] [address] Dre Barcenas 09/13/2025 7:54 AM CSTAnesthesia Event [facility] [address] [place] [address] Soren Alfaro M.D. Lam Manriquez, SHOULDER PAD MOLDER, HOGSHEAD SALVAGE, DNAP 09/13/2025 7:45 AM CSTAncillary Procedure Department of General Surgery 09/13/2025 7:15 AM FIRE CHIEF - 09/13/2025 12:58 PM CSTSurgery [facility] OR [address] [place] [address] Rupert Loving M.D. ROBOTIC-ASSISTED PYELOPLASTY.09/13/2025 5:42 AM FIRE CHIEF - 09/14/2025 12:28 PM FIRE CHIEF Hospital Encounter [facility], [facility], Fifth Floor [address] [place] [address] Rupert Loving M.D. Hydronephrosis With Ureteropelvic Junction Obstruction (Primary Dx) Discharge Disposition: Home or Self Care09/11/2025 11:30 AM CSTOffice Visit Department of Urology in [place], [place] [address] [place] [address] Rupert Loving M.D. Hydronephrosis (Primary Dx); Urinary Tract Infection Site Not Utlfdklmd70/16/2025Orders Only Department of Urology in [place], [place] [address] [place] [address] Zandra Romero, R.N. Obstruction Kidney; Chronic Kidney Disease (CKD), Stage 3b Glomerular Filtration Rate (GFR) 30 To 44 (HCC); Hydronephrosis With Ureteral Stricture Not Elsewhere Dzahgdhxpk97/08/2025Orders Only Department of Urology in [place], [place] [address] [place] [address] Madiha Loza R.N. Feeling Of Incomplete Bladder Emptying (Primary Dx); Zwijcpdgpuhzbc87/04/2025 3:53 PM FIRE CHIEF - 08/30/2025 8:39 PM CSTEmergency [facility] [address] [place] [address] Sergo Hogan M.D. Urinary Tract Infection Site Not Specified (Primary Dx); Vomiting Discharge Disposition: Home or Self Care08/30/2025 2:30 PM CSTComprehensive Visit Preoperative Evaluation Center in [place], [place] [address] [place] [address] Vicki Rubio M.D., M.S. Yoseph Brown M.D. Preanesthetic Medical Exam (Primary Dx); Hypertensive Chronic [...] Valve Insufficiency; Nonrheumatic Mitral Valve Insufficiency; Obstruction Tvrwcn1408/30/2025 9:43 AM FIRE CHIEF - 08/30/2025 11:45 AM CSTHospital Encounter Department of Radiology, [facility] in [place], [place] [address] [place] [phone] Vicki Rubio M.D., M.S. Pelon Armas M.D. Hydronephrosis Discharge Disposition: Home or Self Care08/30/2025 8:43 AM FIRE CHIEF - 08/30/2025 9:41 AM CSTHospital Encounter Department of Laboratory Medicine and Pathology, [facility] in [place], [place] [address] [place] [phone] Vicki Rubio M.D., M.S. Hydronephrosis Discharge Disposition: Home or Self Care08/30/2025 8:43 AM FIRE CHIEF - 08/30/2025 9:41 AM CSTHospital Encounter Department of Laboratory Medicine and Pathology, [facility] in [place], [place] [address] [place] [phone] Vicki Rubio M.D., M.S. Hydronephrosis Discharge Disposition: Home or Self Care08/27/2025 1:15 PM CSTClinical Communication Virtual Review in [place], [place] [address] [place] [address] Blood Dkjufwpp64/01/2025Clinical Communication Department of Urology in [place], [place] [address] [place] [phone] Rupert Loving M.D. Phone Call07/23/2025Orders Only Department of Urology in [place], [place] [address] [place] [phone] Madiha Loza RRedd Hydronephrosis (Primary Dx)07/23/2025Orders Only Department of Urology in [place], [place] [address] [place] [phone] Madiha Loza R.N. Hydronephrosis (Primary Dx)07/04/2025Orders Only Department of Urology in [place], [place] [address] [place] [address] Maddie Goff R.N. from Last 3 Months Immunizations ImmunizationAdministration DatesNext DueHZV (ZOSTAVAX)01/26/20084946YVJU0151/20/2005 Td (Adult), gtoumarf11/01/2008 Family History Medical HistoryRelationNameCommentsParkinsonismBrother 1MarvyHeart attackBrother 2DennisCoronary artery diseaseFatherChetage 67 for heart attackCancerMother NellieThyroid diseaseMotherNellieRelationNameStatusCommentsBrother 1MarvyBrother 2DennisAliveHad MA at 37 but was smokerFatherChetMotherNellie Social History Tobacco UseTypesPacks/DayYears UsedDateSmoking Tobacco: NeverSmokeless Tobacco: Never Tobacco Cessation:Counseling Given: Not Answered Alcohol UseStandard Drinks/WeekCommentsNever0 (1 standard drink = 0.6 oz pure alcohol)Humiliation, Afraid, Rape, and Kick questionnaireAnswerDate Recorded Within the last year, have you been afraid of your partner or ex-partner?Patient unable to htzkjp6309/13/2025Within the last year, have you been humiliated or emotionally abused in other ways by your partner or ex-partner?Patient unable to swrwlc1509/13/2025Within the last year, have you been kicked, hit, slapped, or otherwise physically hurt by your partner or ex-partner?Patient unable to answer 09/13/2025Within the last year, have you been raped or forced to have any kind of sexual activity by your partner or ex-partner?Patient unable to answer 09/13/2025Hunger Vital SignAnswerDate RecordedWithin the past 12 months, you worried that your food would run out before you got the money to buymore.Never true09/13/2025Within the past 12 months, the food [...] have received?Associate degree: occupational, technical, or vocational ctcxcdz1705/27/2020Comments NoSex and Gender InformationValueDate RecordedSex Assigned at BirthFemale 02/19/2025 10:16 AM CDTLegal FbiMeweuk17/02/2017 2:16 PM CSTGender Identity Xvvcqv7002/19/2025 10:16 AM CDTSexual JastqlsqnzcYjbpaxoh60/26/2025 10:16 AM CDT Last Filed Vital Signs Vital SignReadingTime TakenCommentsBlood Fsimydxw763/9009/14/2025 12:15 PM FIRE CHIEF Iedyp415509/14/2025 12:15 PM ZMTQpsnstanmoi87.6 ??C (97.9 ??F)09/14/2025 12:15 PM CSTRespiratory Jzom041511/15/2024 12:15 PM CSTOxygen Ssvmtwfmae447%09/14/2025 12:15 PM CSTInhaled Oxygen Concentration--Gtovma02.9 kg (169 lb 8.5 oz) 09/13/2025 2:11 PM FOQKxyqjk795 cm (5' 2.6)09/13/2025 6:17 AM CSTBody Mass Index30.42111/14/2024 6:17 AM FIRE CHIEF Plan of Treatment DateTypeDepartmentCare Team (Latest Contact Info)Zxketnrmndf22/03/2026 8:00 AM CSTProcedure visit Department of Urology in [place], [place] [address] [place] [phone] Rupert Loving M.D. [address] [place] [phone] Health MaintenanceDue DateLast DoneCommentsOffice Visit for Blood Pressure Check / Re-check1940DTaP,Tdap,and Td Vaccines (1 - Tdap) Zoster Vaccines (2 of 3)RSV vaccine - (32-36 weeks) or 50+ years (1 - 1-dose 75+ series)2015Depression Screening (Annual PHQ-2)09/27/2024OVID-19 Vaccine (1 - 2024- season)2025Influenza Vaccine (#1), 06/24/2015, 07/17/2014, Additional history exists Thyroid Stimulating Hormone (TSH) test for thyroid /12/2024, 07/25/2024, 02/17/2024, Additional history existsPneumococcal vaccine (50+ years)Wsakdqxby06/25/2017, 09/15/2005Fall Risk Screen (Annual)Completed 09/13/2025IPV VaccinesAged OutNo longer eligible based on patient's age to complete this topic Medical Devices ImplantedTypeAreaManufacturerDevice IdentifierShelf Expiration DateModel / Serial / LotClp Lpr Abs [place] - [id number] Implanted:Qty: 1 on 09/13/20[facility] pins/screws/rodsTriviala & [employer] Services [id number] 02/25/2028XC200 / / [id number] amari Marlow - [id number] Implanted:Qty: 1 on 09/13/2025 by [facility]/screws/rodsTeleflex [id number] / / [id number] - Default Historical Implant Device Implanted:04/18/2014 (Quantity not on file)Knee ImplantLeft: KneeDescription: Body Location - Knee L. LT TKA 1997. Device Status Text - Knee Joint.Stnt Uret Inl 7fx26 - [id number] Implanted:Qty: 1 on 09/13/2025 by Rupert [facility] M.D. at [facility] Yazidi CampusUreteral StentRight: UreterC.R.[id number] / / [id number] Procedures Procedure NamePriorityDate/TimeAssociated DiagnosisCommentsCBC WITHOUT DIFFERENTIAL, TRjdyaeq06/19/2025 12:35 AM FIRE CHIEF BASIC METABOLIC PANEL, S/VJlftnvw74/19/2025 12:35 AM FIRE CHIEF PULSE OXIMETRY WITH REMOTE MHTEHBRFHaiezqg08/18/2025 6:18 PM CSTPULSE OXIMETRY WITH REMOTE GDTWYLFAJevwxfz83/18/2025 6:18 PM CSTADULT OXYGEN THERAPYRoutine 09/13/2025 5:23 PM CSTADULT OXYGEN AAJHDXGLekemzv84/18/2025 5:23 PM CSTADULT OXYGEN ZXWJFZKEynpnpb17/18/2025 5:23 PM CSTADULT OXYGEN SWQGYVUAzgatyd39/18/2025 11:40 AM CSTPATIENT STATUS, MGRXECL62/18/2025 8:32 AM FIRE CHIEF GLUCOSE, WHOLE OUIPRIAMA31/18/2025 8:32 AM FIRE CHIEF POTASSIUM, BSTAT111/14/2024 8:32 AM FIRE CHIEF SODIUM, BSTAT111/14/2024 8:32 AM FIRE CHIEF CALCIUM, IONIZED, S/BSTAT111/14/2024 8:32 AM FIRE CHIEF ABG W/YVBHQZPI12/18/2025 8:32 AM FIRE CHIEF TYPE AND VFFHBMPygisns52/18/2025 8:20 AM FIRE CHIEF LDA ANE ARTERIAL LINE CCKXRWLTDMoudyqj76/18/2025 8:14 AM FIRE CHIEF MI ARTL CATH/CNULA MONITOR XIVJRagtvqf35/18/2025 8:14 AM FIRE CHIEF LDA ANE ENDOTRACHEAL NPLZDOShctvbf56/18/2025 8:04 AM FIRE CHIEF SURGERY IMAGE XRUXOrknqjr19/18/2025 7:45 AM FIRE CHIEF STENT PLACEMENT - MGRINVDD79/18/2025 7:24 AM FIRE CHIEF 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 JDPSXRKDYCYQ43/18/2025 7:24 AM FIRE CHIEF 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 ROBOTIC-ASSISTED KVLCFQUMZAK49/18/2025 7:24 AM FIRE CHIEF 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 TROPONIN T, 2H/6H REFLEX, 5TH GEN, VKlzfj9708/30/2025 6:50 PM FIRE CHIEF MICROSCOPIC GRZJEXYHSJ06/04/2025 5:51 PM FIRE CHIEF DIPSTICK, USTAT110/31/2024 5:51 PM FIRE CHIEF PH, USTAT110/31/2024 5:51 PM FIRE CHIEF OSMOLALITY, USTAT110/31/2024 5:51 PM FIRE CHIEF DIPSTICK, XUdgbpmj31/04/2025 5:51 PM FIRE CHIEF PH, PPmlmwgc97/04/2025 5:51 PM FIRE CHIEF MICROSCOPIC GYEUBHUOOAoilcla32/04/2025 5:51 PM FIRE CHIEF OSMOLALITY, XEozmgxe40/04/2025 5:51 PM FIRE CHIEF URINALYSIS WITH WVZMYWOHRTWJhmkhfx65/04/2025 5:51 PM FIRE CHIEF URINALYSIS WITH XTTXLAGFWFLUHHR55/04/2025 5:[address] ABDOMEN PELVIS WITH IV CONTRASTRAD - Semiurgent (Fast; most ED patients; some inpatients)08/30/2025 5:01 PM FIRE CHIEF LACTATE, VENOUS, BSTAT110/31/2024 4:25 PM FIRE CHIEF PATIENT JHXZFNWPOO89/04/2025 4:25 PM FIRE CHIEF VENOUS BLOOD GAS W/O UNJPQKKK65/04/2025 4:25 PM FIRE CHIEF C-REACTIVE PROTEIN (CRP), S/PSTAT110/31/2024 4:24 PM FIRE CHIEF THYROID-STIMULATING HORMONE-SENSITIVE (S-TSH)STAT110/31/2024 4:24 PM FIRE CHIEF TROPONIN T, BASELINE, 5TH GEN, PSTAT110/31/2024 4:24 PM FIRE CHIEF SEDIMENTATION RATE, BSTAT110/31/2024 4:24 PM FIRE CHIEF PROTHROMBIN TIME (PT), PSTAT110/31/2024 4:24 PM FIRE CHIEF NT-PRO B-TYPE NATRIURETIC PEPTIDE (BNP), SSTAT110/31/2024 4:24 PM FIRE CHIEF LIPASE, S/PSTAT110/31/2024 4:24 PM FIRE CHIEF HEPATIC FUNCTION PANEL, SSTAT110/31/2024 4:24 PM FIRE CHIEF CBC WITH DIFFERENTIAL, BSTAT110/31/2024 4:24 PM FIRE CHIEF BASIC METABOLIC PANEL, S/PSTAT110/31/2024 4:24 PM FIRE CHIEF VCCLIAC6008/30/2025 4:14 PM FIRE CHIEF IR NEPHROSTOMY TUBE EXCHANGE RIGHTRAD - Routine (most inpatients and all outpatients)08/30/2025 11:29 AM FIRE CHIEF Hydronephrosis BACTERIAL CULTURE, AEROBIC + SUSC, DVQCNYuoxauv50/04/2025 9:09 AM FIRE CHIEF Hydronephrosis TYPE AND KPPYFJYfcyvqq56/04/2025 9:00 AM FIRE CHIEF Hydronephrosis BASIC METABOLIC PANEL, S/KAcdfiho00/04/2025 9:00 AM FIRE CHIEF Hydronephrosis CBC WITHOUT DIFFERENTIAL, PYoudobe34/04/2025 9:00 AM FIRE CHIEF Hydronephrosis from Last 3 Months Results * (ABNORMAL) CBC without Differential (09/14/2025 12:35 AM FIRE CHIEF) Only the most recent of2 resultswithin the time period is included. ComponentValueRef RangeTest MethodAnalysis TimePerformed AtPathologist Signature Hemoglobin8.3(L)11.6 - 15.0 g/dL09/14/2025 12:51 AM KPRDFAOpusurumvo72.4(L)35.5 - 44.9 %09/14/2025 12:51 AM CSTDTLErythrocytes2.93(L)3.92 - 5.13 x10(12)/L 09/14/2025 12:51 AM MAHVPASMT16.178.2 - 97.9 fL09/14/2025 12:51 AM CSTDTLRBC Distrib Width14.612.2 - 16.1 %09/14/2025 12:51 AM CSTDTLPlatelet Oedpi142(H)157 - 371 x10(9)/L111/15/2024 12:51 AM CSTDTLLeukocytes8.43.4 - 9.6 x10(9)/L 09/14/2025 12:51 AM CSTDTLSpecimen (Source)Anatomical Location / Laterality Collection Method / VolumeCollection TimeReceived TimeBlood (Blood, Venous) 09/14/2025 12:35 AM CST09/14/2025 12:44 AM FIRE CHIEF Narrative Authorizing ProviderResult TypeResult StatusNeetu Simon M.D., M.Ed.LAB BLOOD ADD-ONFinal ResultPerforming OrganizationAddressCity/State/ZIP CodePhone Number [facility] [address] [place] [address], [facility] DTL [facility] [address] [place] [address] * (ABNORMAL) Basic Metabolic Panel (09/14/2025 12:35 AM FIRE CHIEF) Only the most recent of3 resultswithin the time period is included. ComponentValueRef RangeTest MethodAnalysis TimePerformed AtPathologist Signature Potassium, S5.03.6 - 5.2 mmol/L111/15/2024 1:14 AM CSTDTLSodium, S133(L)135 - 145 mmol/L111/15/2024 1:14 AM CSTDTLChloride, L09731 - 107 mmol/L111/15/2024 1:14 AM CSTDTLBicarbonate, S21(L)22 - 29 mmol/L111/15/2024 1:14 AM CSTDTLAnion Lnd839 - 15111/15/2024 1:14 AM CSTDTLBUN (Blood Urea Nitrogen), S216 [...] (Blood, Venous)09/14/2025 12:35 AM CST09/14/2025 12:59 AM FIRE CHIEF Narrative Authorizing ProviderResult TypeResult StatusNeetu Simon M.D., M.Ed.LAB BLOOD ADD-ONFinal ResultPerforming OrganizationAddressCity/State/ZIP CodePhone Number [facility] [address] [place] [address], [facility] DTL [facility] [address] [place] [address] * Patient Status (09/13/2025 8:32 AM FIRE CHIEF)ComponentValueRef RangeTest Method Analysis TimePerformed AtPathologist CvtorerrmExjlajoqzpi92.037.0 deg C 09/13/2025 8:32 AM KWDDNQTYAB74.570.21=AIR09/13/2025 8:32 AM CSTMETHSpecimen (Source)Anatomical Location / LateralityCollection Method / VolumeCollection TimeReceived UngsTccjx34/18/2025 8:32 AM CST09/13/2025 8:32 AM FIRE CHIEF Narrative Authorizing ProviderResult TypeResult StatusSoren Alfaro M.D.LAB BLOOD NON ADD-ONFinal ResultPerforming OrganizationAddressCity/State/ZIP CodePhone Number [facility] [address] [place] [address], [facility] 200 [place] [address] * Sodium, B (09/13/2025 8:32 AM FIRE CHIEF)ComponentValueRef RangeTest MethodAnalysis TimePerformed AtPathologist SignatureSodium, [id number] - 145 mmol/L111/14/2024 8:33 AM CSTMETHSpecimen (Source)Anatomical Location / LateralityCollection Method / VolumeCollection TimeReceived TimeBlood (Blood, Arterial)09/13/2025 8:32 AM CST09/13/2025 8:32 AM FIRE CHIEF Narrative Authorizing ProviderResult TypeResult StatusSoren Alfaro M.D.LAB BLOOD NON ADD-ONFinal ResultPerforming OrganizationAddressCity/State/ZIP CodePhone Number [facility] [address] [place] [address], [facility] [address] [place] [address] * (ABNORMAL) Blood Gas with Coox, Arterial (09/13/2025 8:32 AM FIRE CHIEF)Component ValueRef RangeTest MethodAnalysis TimePerformed AtPathologist GnpipgkggkB5768 (H)83 - 108 mm Hg09/13/2025 8:33 AM OIMVNVSvAE45729 - 45 mm Hg09/13/2025 8:33 AM CSTMETHpH7.397.35 - 7.45 pH09/13/2025 8:33 AM CSTMETHBase Excess-5(L)-2 - 3 mmol/L111/14/2024 8:33 AM LNBFCESNTO734(L)22 - 26 mmol/L111/14/2024 8:33 AM FIRE CHIEF METHHemoglobin, B8.7(L)11.6 - 15.0 g/dL09/13/2025 8:33 AM THYQIHZM3Ux15.794.0 - 98.0 %09/13/2025 8:33 AM CSTMETHCOHb1.1<3.0 %09/13/2025 8:33 AM CSTMETHMetHb 1.2<1.5 %09/13/2025 8:33 AM BIECOFWZnI293.3(L)18.0 - 21.0 vol %09/13/2025 8:33 AM CSTMETHSpecimen (Source)Anatomical Location / LateralityCollection Method / VolumeCollection TimeReceived TimeBlood (Blood, Arterial)09/13/2025 8:32 AM CST09/13/2025 8:32 AM FIRE CHIEF Narrative Authorizing ProviderResult TypeResult StatusSoren Alfaro M.D.LAB BLOOD NON ADD-ONFinal ResultPerforming OrganizationAddressCity/State/ZIP CodePhone Number [facility] [address] [place] [address], [facility] METH [facility] [address] [place] [address] * Potassium, Blood (09/13/2025 8:32 AM FIRE CHIEF)ComponentValueRef RangeTest Method Analysis TimePerformed AtPathologist SignaturePotassium, B3.93.6 - 5.2 mmol/L 09/13/2025 8:40 AM CSTMETHSpecimen (Source)Anatomical Location / Laterality Collection Method / VolumeCollection TimeReceived TimeBlood (Blood, Arterial) 09/13/2025 8:32 AM CST09/13/2025 8:32 AM FIRE CHIEF Narrative Authorizing ProviderResult TypeResult StatusSoren Alfaro M.D.LAB BLOOD NON ADD-ONFinal ResultPerforming OrganizationAddressCity/State/ZIP CodePhone Number [facility] [address] [place] [address] * Glucose, Whole Blood (09/13/2025 8:32 AM FIRE CHIEF)ComponentValueRef RangeTest MethodAnalysis TimePerformed AtPathologist SskibcrmwSlrxvxc61202 - 140 mg/dL 09/13/2025 8:33 AM CSTMETHSpecimen (Source)Anatomical Location / Laterality Collection Method / VolumeCollection TimeReceived TimeBlood (Blood, Arterial) 09/13/2025 8:32 AM CST09/13/2025 8:32 AM FIRE CHIEF Narrative Authorizing ProviderResult TypeResult StatusSoren Alfaro M.D.LAB BLOOD ADD-ON Final ResultPerforming OrganizationAddressCity/State/ZIP CodePhone Number [facility] [address] [place] [address] * Calcium, Ionized (09/13/2025 8:32 AM FIRE CHIEF)ComponentValueRef RangeTest Method Analysis TimePerformed AtPathologist SignatureCalcium, Ionized, B4.804.65 - 5.30 mg/dL09/13/2025 8:40 AM CSTMETHSpecimen (Source)Anatomical Location / LateralityCollection Method / VolumeCollection TimeReceived TimeBlood (Blood, Arterial)09/13/2025 8:32 AM CST09/13/2025 8:32 AM FIRE CHIEF Narrative Authorizing ProviderResult TypeResult StatusSoren Alfaro M.D.LAB BLOOD NON ADD-ONFinal ResultPerforming OrganizationAddressCity/State/ZIP CodePhone Number [facility] [address] [place] [address] * Type and Screen (with Reflex Antibody ID) (09/13/2025 8:20 AM FIRE CHIEF) Only the most recent of2 resultswithin the time period is included. ComponentValueRef RangeTest MethodAnalysis TimePerformed AtPathologist Signature ABORhO PosNot nhlwooochd19/18/2025 9:26 AM CSTETRMAntibody ScreenNegative Jduwdqya68/18/2025 9:40 AM CSTETRMType & Screen Oohnhzqurg37/21/2025 23:59 09/13/2025 9:26 AM CSTETRMTesting LocationRoche[place] DEFAULT 09/13/2025 8:43 AM CSTETRMSpecimen (Source)Anatomical Location / Laterality Collection Method / VolumeCollection TimeReceived TimeBlood (Blood, Venous) 09/13/2025 8:20 AM CST09/13/2025 8:43 AM FIRE CHIEF Narrative Authorizing ProviderResult TypeResult StatusBenvale Alfaro M.D.LAB BLOOD BANK TEST ORDERABLESFinal ResultPerforming OrganizationAddressCity/State/ZIP Code Phone Number [facility] [address] [place] [address], [place] ETRM [facility] [address] [place] [address] * MI ARTL CATH/CNULA MONITOR PERC, LDA ANE ARTERIAL LINE INSERTION (09/13/2025 8:14 AM FIRE CHIEF) Narrative Soren Alfaro M.D. - 09/13/2025 8:14 AM FIRE CHIEF Soren Alfaro M.D. 09/13/2025 8:33 AM Invasive [...] participated in the procedure, and the advertising consultant was present for the entire procedure. Authorizing ProviderResult TypeResult Gunjan Alfaro M.D.PROCEDURE/MINOR SURGICAL ORDERABLESFinal Result * LDA ANE ENDOTRACHEAL AIRWAY (09/13/2025 8:04 AM FIRE CHIEF) Narrative Milena Luz R.N. - 09/13/2025 8:04 AM FIRE CHIEF Milena Luz R.N. 09/13/2025 8:15 AM Airway [...] ETT location: oral VL device: glide scope Kake scope blade size: 3 Tube size: 7 [...] participated in the procedure, and the advertising consultant was present for the entire procedure. Authorizing ProviderResult TypeResult StatusSoren Alfaro M.D.ANESTHESIA ORDERABLESFinal Result * ROBOT-Surgery Image Exam (09/13/2025 7:45 AM FIRE CHIEF)Specimen (Source)Anatomical Location / LateralityCollection Method / VolumeCollection TimeReceived Time 09/13/2025 7:42 AM FIRE CHIEF Narrative [facility] - 09/13/2025 11:23 AM FIRE CHIEF This order has been created and auto-finalized to support the import of images acquired without order. The clinical documentation to support these images can be found on the encounter that produced images. Authorizing ProviderResult TypeResult StatusProvider Not In SystemIMG NON RAD IMAGING PROCEDURESFinal ResultPerforming OrganizationAddressCity/State/ZIP Code Phone Number [facility] NA * (ABNORMAL) Troponin T, 2 Hour with 6 Hour Reflex, 5th Gen (08/30/2025 6:50 PM FIRE CHIEF)ComponentValueRef RangeTest MethodAnalysis TimePerformed AtPathologist SignatureTroponin T, 2 hr, 5th gen17(H)<=10 ng/L110/31/2024 7:28 PM PEPWCVN9H Vwpfl2uj/L110/31/2024 7:28 PM CSTSTMAComment:6 hour collection not indicated.2H Delta InterpNot Jiwxmmqk88/04/2025 7:28 PM CSTSTMASpecimen (Source)Anatomical Location / LateralityCollection Method / VolumeCollection TimeReceived Time Blood08/30/2025 6:50 PM CST08/30/2025 7:08 PM FIRE CHIEF Narrative Authorizing ProviderResult TypeResult StatusSergo Hogan M.D.LAB BLOOD TROPONINFinal ResultPerforming OrganizationAddressCity/State/[place] [address], [facility] [address] [place] [address] * (ABNORMAL) Dipstick, Urine (08/30/2025 5:51 PM FIRE CHIEF) Only the most recent of2 resultswithin the time period is included. ComponentValueRef RangeTest MethodAnalysis TimePerformed AtPathologist Signature Hemoglobin, QL, UModerate(A)Xhbkbeti22/04/2025 6:44 PM CSTDTLLeukocyte Esterase, ULarge(A)Aqawognn30/04/2025 6:44 PM CSTDTLNitrite, LIzjcyehwKxnqjtvq64/04/2025 6:44 PM CSTDTLKetone, UNegativeNegative mg/dL08/30/2025 6:44 PM CSTDTLGlucose, U NegativeNegative mg/dL08/30/2025 6:44 PM CSTDTLSpecimen (Source)Anatomical Location / LateralityCollection Method / VolumeCollection TimeReceived TimeUrine 08/30/2025 5:51 PM CST08/30/2025 6:34 PM FIRE CHIEF Narrative Authorizing ProviderResult TypeResult StatusSergo Hogan M.D.LAB URINE ORDERABLESFinal ResultPerforming OrganizationAddressCity/State/ZIP CodePhone Number [facility] [address] [place] [address] * (ABNORMAL) Microscopic Manual (08/30/2025 5:51 PM FIRE CHIEF)ComponentValueRef Range Test MethodAnalysis TimePerformed AtPathologist SignatureMicroscopyAbnormal 08/30/2025 7:18 PM CSTDTLRBC<3<3 /hpf08/30/2025 7:18 PM CSTDTLWBC1-3/hpf 08/30/2025 7:18 PM CSTDTLComment: ----REFERENCE VALUE---- <4 (Males) <11 (Females) Squamous Epithelial Cells, U1-3/hpf08/30/2025 7:18 PM CSTDTLBacteriaPresent(A) 08/30/2025 7:18 PM CSTDTLSpecimen (Source)Anatomical Location / Laterality Collection Method / VolumeCollection TimeReceived KfprBtrcz11/04/2025 5:51 PM CST08/30/2025 6:44 PM FIRE CHIEF Narrative Authorizing ProviderResult TypeResult StatusSergo Hogan M.D.LAB URINE ORDERABLESFinal ResultPerforming OrganizationAddressCity/State/ZIP CodePhone Number [facility] [address] [place] [address] * Microscopic Automated (08/30/2025 5:51 PM FIRE CHIEF)ComponentValueRef RangeTest MethodAnalysis TimePerformed AtPathologist LrjtooognLzugkmpacyNqpcio07/04/2025 6:42 PM CSTDTLRBCNone Seen<3 /hpf08/30/2025 6:42 PM CSTDTLWBC1-3/hpf 08/30/2025 6:42 PM CSTDTLComment: ----REFERENCE VALUE---- <4 (Males) <11 (Females) Squamous Epithelial Cells, U1-3/hpf08/30/2025 6:42 PM CSTDTLSpecimen (Source) Anatomical Location / LateralityCollection Method / VolumeCollection Time Received NgzjLhrma55/04/2025 5:51 PM CST08/30/2025 6:32 PM FIRE CHIEF Narrative Authorizing ProviderResult TypeResult StatusSergo Hogan M.D.LAB URINE ORDERABLESFinal ResultPerforming OrganizationAddressty/State/ZIP CodePhone Number [facility] [address] [place] [address] * pH, Urine (08/30/2025 5:51 PM FIRE CHIEF) Only the most recent of2 resultswithin the time period is included. ComponentValueRef RangeTest MethodAnalysis TimePerformed AtPathologist Signature pH, U6.74.5 - 8. 7:02 PM CSTDTLSpecimen (Source)Anatomical Location / LateralityCollection Method / VolumeCollection TimeReceived CwhuFqsxu79/04/2025 5:51 PM CST08/30/2025 6:34 PM FIRE CHIEF Narrative Authorizing ProviderResult TypeResult StatusSergo Hogan M.D.LAB URINE ORDERABLESFinal ResultPerforming OrganizationAddressCity/State/ZIP CodePhone Number [facility] [address] [place] [address] * Osmolality, Urine (08/30/2025 5:51 PM FIRE CHIEF) Only the most recent of2 resultswithin the time period is included. ComponentValueRef RangeTest MethodAnalysis TimePerformed AtPathologist Signature Osmolality, [id number] - 1150 mOsm/kg08/30/2025 7:02 PM CSTDTLSpecimen (Source) Anatomical Location / LateralityCollection Method / VolumeCollection Time Received IjujNgitc84/04/2025 5:51 PM CST08/30/2025 6:34 PM FIRE CHIEF Narrative Authorizing ProviderResult TypeResult StatusSergo Hogan M.D.LAB URINE ORDERABLESFinal ResultPerforming OrganizationAddressCity/State/ZIP CodePhone Number [facility] [address] [place] [address], [place] [address] * Urinalysis, with Microscopic: Urine, Midstream (08/30/2025 5:51 PM FIRE CHIEF) Only the most recent of2 resultswithin the time period is included. ComponentValueRef RangeTest MethodAnalysis TimePerformed AtPathologist Signature SourceUrine, Urine, Femsturyr19/04/2025 6:32 PM CSTDTLColor, BSwhjsp9608/30/2025 6:32 PM CSTDTLClarity, ONeaox6508/30/2025 6:32 PM CSTDTLProtein, U6<26 mg/dL 08/30/2025 7:11 PM CSTDTLProtein/Osmolality0.11<0.42 ratio08/30/2025 7:11 PM FIRE CHIEF DTLPredicted 24 HR Protein, U93<229 mg/24 08/30/2025 7:11 PM CSTDTLPredicted Jnyzl14-623zm/24 08/30/2025 7:11 PM CSTDTLSpecimen (Source)Anatomical Location / LateralityCollection Method / VolumeCollection TimeReceived TimeUrine (Urine, Midstream)08/30/2025 5:51 PM CST08/30/2025 6:32 PM FIRE CHIEF Narrative Authorizing ProviderResult TypeResult StatusSergo Hogan M.D.LAB URINE ORDERABLESFinal ResultPerforming OrganizationAddressCity/State/ZIP CodePhone Number [facility] [address] [place] [address], [address] [address] * CT Abdomen Pelvis with IV Contrast (08/30/2025 5:01 PM FIRE CHIEF)Anatomical Region LateralityModalityAbdomen, Pelvis, Abdominal RST LOS, Abdominal ARZ LOS, Abdominal FLA LOSN/AComputed Tomography, Computed TomographySpecimen (Source) Anatomical Location / LateralityCollection Method / VolumeCollection Time Received Time08/30/2025 4:58 PM FIRE CHIEF Impressions 08/30/2025 6:15 PM FIRE CHIEF No acute findings in the abdomen or pelvis. Narrative 08/30/2025 6:15 PM FIRE CHIEF EXAM: CT ABDOMEN PELVIS WITH IV CONTRAST [...] joints. No lymphadenopathy. J-shaped celiac trunk with kxc-yteh-eoyvongs narrowing in the proximal segment, unchanged since [...] joints. No lymphadenopathy. J-shaped celiac trunk with jdd-vjrp-aobrifzb narrowing in the proximalsegment, unchanged since 2019. This is commonly incidental finding seen inasymptomatic patients, but also can be seen in median arcuate ligamentsyndrome although this is very rare. The abdominal and pelvic vasculatureis otherwise patent. The lung bases are clear. IMPRESSION: No acute findings in the abdomen or pelvis. Authorizing ProviderResult TypeResult Boyd Hogan M.D.IMG CT PROCEDURESFinal Result * Lactate, Venous, Blood (08/30/2025 4:25 PM FIRE CHIEF)ComponentValueRef RangeTest MethodAnalysis TimePerformed AtPathologist SignatureLactate, Venous, B1.40.5 - 2.2 mmol/L110/31/2024 4:36 PM CSTSTMASpecimen (Source)Anatomical Location / LateralityCollection Method / VolumeCollection TimeReceived TimeBlood 08/30/2025 4:25 PM CST08/30/2025 4:32 PM FIRE CHIEF Narrative Authorizing ProviderResult TypeResult Boyd Hogan M.D.LAB BLOOD ADD-ONFinal ResultPerforming OrganizationAddressCity/State/ZIP CodePhone Number [facility] [address] [place] [address], [facility] [address] [place] [address] * Patient Status (08/30/2025 4:25 PM FIRE CHIEF)ComponentValueRef RangeTest Method Analysis TimePerformed AtPathologist FumayedleHPN33.210.21=AIR08/30/2025 4:32 PM CSTSTMASpont. breaths/kcz758010/31/2024 4:32 PM CSTSTMASpecimen (Source) Anatomical Location / LateralityCollection Method / VolumeCollection Time Received PfehGbcwu85/04/2025 4:25 PM CST08/30/2025 4:32 PM FIRE CHIEF Narrative Authorizing ProviderResult TypeResult Boyd Hogan M.D.LAB BLOOD NON ADD-ONFinal ResultPerforming OrganizationAddressCity/State/ZIP CodePhone Number [facility] [address] [place] [address], [facility] [address] [place] [address] * Blood Gas without Coox, Venous (08/30/2025 4:25 PM FIRE CHIEF)ComponentValueRef Range Test MethodAnalysis TimePerformed AtPathologist SignaturepO2, Venous, B21Not applicable mm Hg08/30/2025 4:36 PM CSTSTMApCO2, Venous, B4341 - 51 mm Hg 08/30/2025 4:36 PM CSTSTMApH, Venous, B7.387.32 - 7.43 pH08/30/2025 4:36 PM CSTSTMABase Excess, Venous, B0Not applicable mmol/L110/31/2024 4:36 PM CSTSTMA HCO3, Venous, B25Not applicable mmol/L110/31/2024 4:36 PM CSTSTMASample Site, Venous, QSxoiygdrf21/04/2025 4:32 PM CSTSTMASpecimen (Source)Anatomical Location / LateralityCollection Method / VolumeCollection TimeReceived Time Blood (Blood, Venous)08/30/2025 4:25 PM CST08/30/2025 4:32 PM FIRE CHIEF Narrative Authorizing ProviderResult TypeResult Boyd Hogan M.D.LAB BLOOD NON ADD-ONFinal ResultPerforming OrganizationAddressCity/State/ZIP CodePhone Number [address] [address], [address] [address] * (ABNORMAL) Troponin T, Baseline with 2 Hour/6 Hour Reflex Biomarker Panel (08/30/2025 4:24 PM FIRE CHIEF)ComponentValueRef RangeTest MethodAnalysis Time Performed AtPathologist SignatureTroponin T, Baseline, 5th gen15(H)<=10 ng/L 08/30/2025 4:58 PM CSTSTMASpecimen (Source)Anatomical Location / Laterality Collection Method / VolumeCollection TimeReceived TimeBlood (Blood, Venous) 08/30/2025 4:24 PM CST08/30/2025 4:32 PM FIRE CHIEF Narrative Authorizing ProviderResult TypeResult Boyd Hogan M.D.LAB BLOOD TROPONINFinal ResultPerforming OrganizationAddressCity/State/ZIP CodePhone Number [address] [place] [address], [facility] STMA [facility] [address] [place] [address] * (ABNORMAL) Hepatic Function Panel (08/30/2025 4:24 PM FIRE CHIEF)ComponentValueRef RangeTest MethodAnalysis TimePerformed AtPathologist SignatureBilirubin, Total, S0.20.0 [...] (Blood, Venous)08/30/2025 4:24 PM CST08/30/2025 4:43 PM FIRE CHIEF Narrative Authorizing ProviderResult TypeResult StatusSergo Hogan M.D.LAB BLOOD ADD-ONFinal ResultPerforming OrganizationAddressCity/State/ZIP CodePhone Number [facility] [address] [place] [address], [facility] DTL [facility] [address] [place] [address] * (ABNORMAL) NT-Pro B-Type Natriuretic Peptide (BNP) (08/30/2025 4:24 PM FIRE CHIEF) ComponentValueRef RangeTest MethodAnalysis TimePerformed AtPathologist SignatureNT-Pro AVN9879(H)<=540 pg/mL08/30/2025 4:58 PM CSTSTMAComment: NT-proBNP values less [...] Collection TimeReceived TimeBlood (Blood, Venous)08/30/2025 4:24 PM FIRE CHIEF 08/30/2025 4:32 PM FIRE CHIEF Narrative Authorizing ProviderResult TypeResult Boyd Hogan M.D.LAB BLOOD ADD-ONFinal ResultPerforming OrganizationAddressCity/State/ZIP CodePhone Number [address] [place] [address] * (ABNORMAL) Sedimentation Rate (08/30/2025 4:24 PM FIRE CHIEF)ComponentValueRef Range Test MethodAnalysis TimePerformed AtPathologist SignatureSedimentation Rate, B 35(H)3 - 28 mm/08/30/2025 5:47 PM CSTDTLSpecimen (Source)Anatomical Location / LateralityCollection Method / VolumeCollection TimeReceived TimeBlood (Blood, Venous)08/30/2025 4:24 PM CST08/30/2025 4:44 PM FIRE CHIEF Narrative Authorizing ProviderResult TypeResult Boyd Hogan M.D.LAB BLOOD ADD-ONFinal ResultPerforming OrganizationAddressCity/State/ZIP CodePhone Number [address] [place] [address] * Prothrombin Time (PT) (08/30/2025 4:24 PM FIRE CHIEF)ComponentValueRef RangeTest MethodAnalysis TimePerformed AtPathologist SignatureProthrombin Time, P11.69.4 - 12.5 sec08/30/2025 4:42 PM CSTSTMAINR1.10.9 - 1. 4:42 PM CSTSTMA Comment: ----ADDITIONAL INFORMATION---- Standard intensity warfarin therapeutic range: 2.0 to 3.0 ?? High intensity warfarin therapeutic range: 2.5 to 3.5 Specimen (Source)Anatomical Location / LateralityCollection Method / Volume Collection TimeReceived TimeBlood (Blood, Venous)08/30/2025 4:24 PM FIRE CHIEF 08/30/2025 4:32 PM FIRE CHIEF Narrative Authorizing ProviderResult TypeResult StatusSergo Hogan M.D.LAB BLOOD ADD-ONFinal ResultPerforming OrganizationAddressCity/State/ZIP CodePhone Number [facility] [address] [place] [address], [facility] [address] [place] [address] * (ABNORMAL) CBC with Differential, Blood (08/30/2025 4:24 PM FIRE CHIEF)ComponentValue Ref RangeTest MethodAnalysis TimePerformed AtPathologist SignatureHemoglobin 9.9(L)11.6 - 15.0 g/dL08/30/2025 4:35 PM ALNKCYJKcbtmxwaip58.3(L)35.5 - 44.9 % 08/30/2025 4:35 PM CSTSTMAErythrocytes3.41(L)3.92 - 5.13 x10(12)/L110/31/2024 4:35 PM PLFPMWENVA98.878.2 - 97.9 fL08/30/2025 4:35 PM CSTSTMARBC Distrib Width14.612.2 - 16.1 %08/30/2025 4:35 PM CSTSTMAPlatelet Bpooy760(H)157 - 371 x10(9)/L110/31/2024 4:35 PM PGWOKTSNilnjobkyd80.2(H)3.4 - 9.6 x10(9)/L 08/30/2025 4:35 PM CSTSTMANeutrophils7.14(H)1.56 - 6.45 x10(9)/L110/31/2024 4:35 PM CSTDHPMLymphocytes2.030.95 - 3.07 x10(9)/L110/31/2024 4:35 PM CSTSTMA Monocytes0.95(H)0.26 - 0.81 x10(9)/L110/31/2024 4:35 PM CSTSTMAEosinophils0.07 0.03 - 0.48 x10(9)/L110/31/2024 4:35 PM CSTSTMABasophils0.030.01 - 0.08 x10(9)/L110/31/2024 4:35 PM CSTSTMASpecimen (Source)Anatomical Location / LateralityCollection Method / VolumeCollection TimeReceived TimeBlood (Blood, Venous)08/30/2025 4:24 PM CST08/30/2025 4:32 PM FIRE CHIEF Narrative Authorizing ProviderResult TypeResult Boyd Hogan M.D.LAB BLOOD ADD-ONFinal ResultPerforming OrganizationAddressCity/State/ZIP CodePhone Number [facility] [address] [place] [address], [facility] STMA [facility] [address] [place], [place] [address] [place] [address] 200 [place] [address] * (ABNORMAL) CRP (C-Reactive Protein) (08/30/2025 4:24 PM FIRE CHIEF)ComponentValueRef RangeTest MethodAnalysis TimePerformed AtPathologist SignatureC-Reactive Protein (CRP), S9.5(H)<5.0 mg/L110/31/2024 5:32 PM CSTDTLSpecimen (Source) Anatomical Location / LateralityCollection Method / VolumeCollection Time Received TimeBlood (Blood, Venous)08/30/2025 4:24 PM CST08/30/2025 4:43 PM FIRE CHIEF Narrative Authorizing ProviderResult TypeResult StatusSergo Hogan M.D.LAB BLOOD ADD-ONFinal ResultPerforming OrganizationAddressCity/State/ZIP CodePhone Number [facility] [address] [place] [address], [place] DTL [facility] [address] [place] [address] * S-TSH (Thyroid-Stimulating Hormone - Sensitive) (08/30/2025 4:24 PM FIRE CHIEF) ComponentValueRef RangeTest MethodAnalysis TimePerformed AtPathologist SignatureTSH, Sensitive2.00.3 - 4.2 mIU/L110/31/2024 5:32 PM CSTDTLSpecimen (Source)Anatomical Location / LateralityCollection Method / VolumeCollection TimeReceived TimeBlood (Blood, Venous)08/30/2025 4:24 PM CST08/30/2025 4:43 PM FIRE CHIEF Narrative Authorizing ProviderResult TypeResult Boyd Hogan M.D.LAB BLOOD ADD-ONFinal ResultPerforming OrganizationAddressCity/State/[place] [address] * Lipase (08/30/2025 4:24 PM FIRE CHIEF)ComponentValueRef RangeTest MethodAnalysis Time Performed AtPathologist SignatureLipase, S3813 - 60 U/L110/31/2024 5:32 PM FIRE CHIEF DTLSpecimen (Source)Anatomical Location / LateralityCollection Method / Volume Collection TimeReceived TimeBlood (Blood, Venous)08/30/2025 4:24 PM FIRE CHIEF 08/30/2025 4:43 PM FIRE CHIEF Narrative Authorizing ProviderResult TypeResult Boyd Hogan M.D.LAB BLOOD ADD-ONFinal ResultPerforming OrganizationAddressCity/State/[place] [address] * ECG 12 Lead (08/30/2025 4:14 PM FIRE CHIEF)ComponentValueRef RangeTest MethodAnalysis TimePerformed AtPathologist SignatureVentricular Rate ECG/Yiy19JQDOXHTME Ytkaszgt333fkVXTGEYOB Ovnnfiyg71syYEGKAD Isodfdhv172jeBLVPOBS Eakzjkhn906mq MUSEP Juzz55zvhcnfkYSEJI [place]-39degreesMUSET Wave Ekmw52hbxpumsDJGUMnaxdait (Source)Anatomical Location / LateralityCollection Method / VolumeCollection TimeReceived Time08/30/2025 4:14 PM CST08/30/2025 4:21 PM FIRE CHIEF Impressions MUSE - 08/30/2025 4:21 PM FIRE CHIEF Normal sinus rhythm Left axis deviation When compared with ECG of 06-Mar-2025 18:18, No significant change was found Reviewed by TRISTIN Nicholson Narrative Procedure Note Fawad Lowe M.D. - 08/30/2025 IMPRESSION: Normal sinus rhythm Left axis deviation When compared with ECG of 06-Mar-2025 18:18, No significant change was found Reviewed by TRISTIN Nicholson Authorizing ProviderResult TypeResult StatusSergo Hogan M.D.ECG ORDERABLES Final ResultPerforming OrganizationAddressCity/State/ZIP CodePhone Number MUSE NA * IR Nephrostomy Tube Exchange Right (08/30/2025 11:29 AM FIRE CHIEF)Anatomical Region LateralityModalityGenito Urinary, Vascular Interventional RST LOS, Vascular Interventional ARZ LOS, Vascular Interventional FLA LOSRightX-Ray Angiography Specimen (Source)Anatomical Location / LateralityCollection Method / Volume Collection TimeReceived Time Impressions 08/30/2025 1:25 PM FIRE CHIEF Routine exchange of the 10-Irish right percutaneous nephrostomy tube. Recommend routine exchange in approximately 12 weeks. NR Narrative 08/30/2025 1:25 PM FIRE CHIEF EXAM: IR NEPHROSTOMY TUBE EXCHANGE RIGHT CLINICAL HISTORY: ??Routine right nephrostomy tube exchange. TECHNIQUE: ??The patient was placed prone on the fluoroscopy table, and the right flank was preppedand draped in standard sterile fashion. 1% lidocaine was used for local anesthesia. A cell coverer image demonstrated relatively unchanged position of the 10-Irish right nephrostomy tube. Limited antegradenephrostogram was performed to confirm satisfactory position. Indwelling tube was removed over a guidewire and a new, 10-Irish by 25 cm locking-loop drain was formed [...] 1%lidocaine was used for local anesthesia. A cell coverer image demonstratedrelatively unchanged position of the 10-Irish right nephrostomy tube.Limited antegrade nephrostogram was performed to confirm satisfactoryposition. Indwelling tube was removed over a guidewire and a new,10-Irish by 25 cm locking-loop drain was formed [...] were discussed. IMPRESSION: Routine exchange of the 10-Irish right percutaneous nephrostomy tube.Recommend routine exchange in approximately 12 weeks. NR Authorizing ProviderResult TypeResult StatusCharestefany Rubio M.D., M.S.[facility] IR PROCEDURESFinal Result * (ABNORMAL) Bacterial Culture, Aerobic + Susceptibility, Urine (08/30/2025 9:09 AM FIRE CHIEF)ComponentValueRef RangeTest MethodAnalysis TimePerformed AtPathologist SignatureUrine CultureENTEROBACTER CLOACAE [...] GENERAL ORDERABLESFinal ResultPerforming OrganizationAddress City/State/ZIP CodePhone Number [facility] [address] [place] [address], [place] D[place] [facility] [address] [place] [address] from Last 3 Months Insurance Advance Directives For more information, please contact: [phone] * Full Code (Latest Code Status on File) Date ActivatedDate WimgirrermyMwiydqko07/18/2025 5:23 PM09/14/2025 2:29 PM QuestionAnswerCommentsFull Code:* Not Discussed Due to:* Patient not available * Full Code Date ActivatedDate InactivatedComments03/06/2025 5:41 PM03/07/2025 6:50 PMQuestion AnswerCommentsFull Code:* Discussed Care Teams Team MemberRelationshipSpecialtyStart DateEnd Date Elsewhere, Pcp PCP - GeneralInternal Medicine04/18/25
--- OUTSIDE RECORDS SUMMARY | 2025-09-24 08:53 | XMS_ITS | Patient Health Record ---
Author Organization [facility] Address [address] [place] [address] Care Team Providers Care Drophammer Operator Name Role Phone Lars EASTON, Unavailable [phone] Eva Agarwal Unavailable Unavailab le Migration, Provider Unavailable Unavailable Reason For Referral No Information Medications Medication SIG (Take, Route, Frequency, Duration) Notes Start Date End Date Status Synthroid 88 MCG Tablet Oral once a day 12/04/2022ctivetraMADol HCl 50 MG PvvdrpKwjr62/15/2023ctiveXarelto 20 MG NlxwjdWrsc89/27/2023ctiveOndansetron 4 MG Tablet JlwpepwedxivwhEzst07/09/2023 ActiveSotalol HCl 80 MG TabletTake 0.5 tablets (40 mg total) by mouth every 12 (twelve) hours Oral once a day12/28/2022ctiveOmeprazole 20 MG Tablet Delayed Release DisintegratingOral as dtocon8112/11/2019ActivehydroCHLOROthiazide 12.5 MG TabletOral as sfhafv4312/01/2019ActiveLosartan Potassium 25 MG TabletOral once a day12/11/2019Active Social History Social History Additional DetailsCategorySocial InfoOptionsDetailsMigrated Social History Migrated Social History caffeine use, does not live alone, good exercise habits, no exercise habits, no physical disability, no tobacco use, not a current smoker, not using alcohol, not using drugs, smoking status : Never smoker Problems Problem Type SNOMED Code ICD Code Onset Dates Problem Status W/U Status Risk Notes Problem Essential hypertensi on (84068069) Essential (primary) hypertension (I10) 12/11/2019 Active confirmed ProblemParoxysmal atrial fibrillation (442103534)Paroxysmal atrial fibrillation (I48.0)12/31/2022ctiveconfirmed Encounters Encounter Location Date Provider Diagnosis [facility] [address] [place] [address] 01/27/2025 Provider Migration [facility] [address] [place] [address]Provider Migration Plan Of Treatment No Information Insurance Providers Payer Name Payer Address Payer Phone Subscriber Number Group Number Insured Name Patient Relationship to Insured Coverage Start Date Coverage End Date Medicare Part B [address] [address] [place] [address] [id number] Sergio Singh - patient is the insuredFlori BluePO [address] [place] [id number], GloriaSelf - patient is the insured
--- OUTSIDE RECORDS SUMMARY | 2025-09-24 08:54 | XMS_ITS | Encounter Summary ---
Author Organization [facility] Address [address] [place] [address] Care Team Providers Care Sterilizer Machine Operator Name Role Phone Elsewhere, Pcp Primary Care Provider Unavailabl e Encounter Details DateTypeDepartmentCare Team (Latest Contact Info)Xqakxsrhrlt49/08/2025Orders Only Department of Urology in [place], [place] [address] [place] [address] Madiha Loza R.NFei Feeling Of Incomplete Bladder Emptying (Primary Dx); Hydronephrosis Social History Tobacco UseTypesPacks/DayYears UsedDateSmoking Tobacco: NeverSmokeless Tobacco: NeverAlcohol UseStandard Drinks/WeekCommentsNever0 (1 standard drink = 0.6 oz pure alcohol)[facility] UtilitiesAnswerDate RecordedIn the past 12 months has the electric, gas, oil, or water [employer] threatened to shut off services in your [...] 05/27/2020CommentsNoSex and Gender InformationValueDate RecordedSex Assigned at JtauxXafcvv55/26/2025 10:16 AM CDTLegal HpmBmqmwz07/02/2017 2:16 PM CSTGender MkabjudlFsllnv37/26/2025 10:16 AM CDTSexual OrientationStraight 02/19/2025 10:16 AM CDTdocumented as of this encounter Plan of Treatment DateTypeDepartmentCare Team (Latest Contact Info)Oejqplbruvc67/03/2026 8:00 AM CSTProcedure visit Department of Urology in [place], [place] [address] [place] [address] Rupert Loving M.D. [address] [place] [address] documented as of this encounter Visit Diagnoses Diagnosis Feeling Of Incomplete Bladder Emptying- Primary Hydronephrosis documented in this encounter Care Teams Team MemberRelationshipSpecialtyStart DateEnd Date Elsewhere, Pcp PCP - GeneralInternal Medicine04/18/25documented as of this encounter
--- OUTSIDE RECORDS SUMMARY | 2025-09-24 08:54 | XMS_ITS | Encounter Summary ---
Author Organization [facility] Address [address] [place] [address] Care Team Providers Care Lieutenant General Name Role Phone Elsewhere, Pcp Primary Care Provider Unavailabl e Encounter Details DateTypeDepartmentCare Team (Latest Contact Info)Lgszmobamhk84/16/2025Orders Only Department of Urology in [place], [place] [address] [place] [address] Zandra Romero, R.N. Obstruction Kidney; Chronic Kidney Disease (CKD), Stage 3b Glomerular Filtration Rate (GFR) 30 To 44 (HCC); 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 Social History Tobacco UseTypesPacks/DayYears UsedDateSmoking Tobacco: NeverSmokeless Tobacco: NeverAlcohol UseStandard Drinks/WeekCommentsNever0 (1 standard drink = 0.6 oz pure alcohol)Humiliation, Afraid, Rape, and Kick questionnaireAnswerDate RecordedWithin the last year, have you been afraid of your partner or ex-partner?Patient unable to jcrdqz6809/13/2025Within the last year, have you been humiliated or emotionally abused in other ways by your partner or ex-partner? Patient unable to qxtczd1409/13/2025Within the last year, have you been kicked, hit, slapped, or otherwise physically hurt by your partner or ex-partner?Patient unable to bosnip0209/13/2025Within the last year, have you been raped or forced to have any kind of sexual activity by your partner or ex-partner?Patient unable to yooigf4009/13/2025Hunger Vital SignAnswerDate RecordedWithin the past 12 months, [...] have received?Associate degree: occupational, technical, or vocational weljoeb0405/27/2020Comments NoSex and Gender InformationValueDate RecordedSex Assigned at BirthFemale 02/19/2025 10:16 AM CDTLegal KaaJgvttf94/02/2017 2:16 PM CSTGender Identity Prutiw5402/19/2025 10:16 AM CDTSexual VakzjvocyleLshlsrqr80/26/2025 10:16 AM CDT documented as of this encounter Plan of Treatment DateTypeDepartmentCare Team (Latest Contact Info)Ydemslkwfrb26/03/2026 8:00 AM CSTProcedure visit Department of Urology in [place], [place] [address] [place] [address] Rupert Loving M.D. [address] [place] [address] documented as of this encounter Visit Diagnoses Diagnosis Obstruction Kidney Chronic Kidney Disease (CKD), Stage 3b Glomerular Filtration Rate (GFR) 30 To 44 (HCC) 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 documented in this encounter Care Teams Team MemberRelationshipSpecialtyStart DateEnd Date Elsewhere, Pcp PCP - GeneralInternal Medicine04/18/25documented as of this encounter
--- OUTSIDE RECORDS SUMMARY | 2025-09-24 08:55 | XMS_ITS | Clinical Summary ---
Author Organization [employer] [facility] Address [address] [place] [address] Care Team Providers Care Genetic Engineer Name Role Phone Kalia Joann HOPKINS Primary Care Provider Zachariah Porter MD Unavailable [phone] [place], [facility] Unavailable Unavailable Allergies Active AllergyReactionsCriticalityNoted DateCommentsAce InhibitorsCough 10/22/20067688HjkyouzbzfJjmrn48/13/2025at HvvpezXzghigwd22/07/2015pixabanDiarrhea 07/09/2022House Dust*Ctfpdok8501/31/20156989ErmmdvelcakdTabiIkw09/09/2025Hyoscyamine Rash10/22/2006MetoprololBradycardia,Edema,GI Upset03/01/2009 Reflux, leg swelling Medications MedicationSigDispense QuantityRefillsLast FilledStart DateEnd DateStatus cholecalciferol, Vitamin D3, 5,000 unit tab tablet Take by mouth once daily.ctive nebulizer accessories misc misc Indications:WheezingAs directed. replace mask and tubing every 6 months. 1 Each ctive magnesium glycinate 100 mg magnesium cap Indications:Gastroesophageal reflux disease, unspecified whether esophagitis presentTake 100 mg by mouth once daily.ctive Nebulizer Indications:WheezingNebulizer, disposable neb kit x 4, reuseable neb kit x 1, mask x 1, filters x 1. Frequency of use: daily; Medication: albuterol Length of need: 99 months 1 Each 3Active Synthroid 88 mcg tablet Indications:Hypothyroidism due to acquired atrophy of thyroidTake 1 Tablet (88 mcg) by mouth before breakfast. 100 Tablet 5Active metoprolol tartrate 25 mg tablet Indications:Paroxysmal A-fib (HC)Take 0.5 Tablets (12.5 mg) by mouth two times daily. 90 Tablet 5Active losartan (COZAAR) 50 mg tablet Indications:HTN (hypertension)Take 1 Tablet (50 mg) by mouth two times daily. 5Active triamcinolone 0.5 % cream Indications:DermatitisApply topically to affected area(s) two times daily. 15 g 5Active lansoprazole (PREVACID) 15 mg capsule Indications:Chronic GERDTake 1 Capsule (15 mg) by mouth once daily before a meal. 30 Capsule 5Active LORazepam (ATIVAN) 0.5 mg tab Indications:AnxietyTake 1 Tablet (0.5 mg) by mouth every 6 hours if needed for Anxiety. 2 Tablet 5Active tiZANidine (ZANAFLEX) 2 mg tablet Indications:Severe back painTake 1 Tablet (2 mg) by mouth every 6 hours if needed for Muscle Spasm. 20 Tablet 5Active oxyCODONE (ROXICODONE) 5 mg immediate release tablet Indications:Chronic left hip painTake 1 Tablet (5 mg) by mouth every 4 hours if needed for Pain. 20 Tablet 5Active albuterol-ipratropium (DUONEB) (2.5 mg-0.5 mg)/3 mL NEBULIZATION solution Inhale 3 mL by mouth 4 times daily if needed.5Active tiotropium (SPIRIVA HANDIHALER) 18 mcg inhalation capsule Indications:Chronic obstructive pulmonary disease, unspecified COPD type (HC) Inhale 1 Capsule (18 mcg) by mouth once daily. 30 Capsule 5Active oxyCODONE (ROXICODONE) 5 mg immediate release tablet Indications:Chronic left hip painTake 1 Tablet (5 mg) by mouth every 4 hours if needed for Pain. 20 Tablet 512/04/2025Discontinued(Reorder (E-cancel not sent)) budesonide-formoteroL (SYMBICORT,BREYNA) 80-4.5 mcg/actuation (80-4.5 mcg each actuation) inhaler Indications:Chronic obstructive pulmonary disease, unspecified COPD type (HC) Inhale 2 puffs twice daily and 1-2 puffs every 4 hours as needed for asthma exacerbations. Max 12 puffs per day. 1 Each 5111/08/2024Discontinued(*Medication adjustment) Active Problems ProblemNoted DateDiagnosed DateStage 3 chronic kidney dpdjogp4908/08/2025 Overview (08/08/2025): AI Summary: The patient had hypertensive kidney [...] 06/04/25: Orders Only - Department of Radiology, [facility], in [place], [place], Radiology(from [facility]) 03/08/25: Office Visit - [facility] [place] [place], Nephrology (from [facility] [place]) 03/06/25: Hospital Encounter - [facility], Fourth Floor, Telemetry Elias (from [facility]) 06/18/20: Comprehensive Visit - Division of Pulmonary Medicine in [place], [place], Pulmonary Medicine (from [facility]) 06/17/20: Hospital Encounter - Department of Laboratory Medicine and Pathology, [place], [place], Laboratory Medicine (from [facility]) Recent notes: 03/08/25: Progress Notes by Zachariah Porter MD (from [facility] [place] [place]) ... [+] Stage 3b chronic kidney disease (HCC) - Primary ... [+] Stage 3b chronic kidney disease (HCC) 03/07/25: Miscellaneous Notes - Assessment & Plan Note by Zachariah Porter MD ([facility] [place] [place] ... [+] Associated Problem(s): Stage 3b chronic kidney disease (HCC) 06/17/20: Consultation Note - Consult Notes (from [facility]) ... [+] #2 Hypertension And Chronic Kidney Disease Stage 3 (HCC) Anemia in chronic kidney xeoacih5803/05/2025 Overview (05/02/2025): Baseline hemoglobin in the mid tens-11 range. Ferritin 125 in April 2023 Most recent hemoglobin 10.5 from December 2023. Senile amumkcmqmn93/03/2025Diastolic congestive heart failure, unspecified HF eejyitjznk61/13/2024hronic obstructive pulmonary disease, unspecified COPD type 03/09/2024therosclerosis of aorta03/09/2024enal /23/2024 Disorder of kidney and ureter, wrzyrqqsmfl69/23/2024HI (closed head injury) 02/16/2024Elevated blood pressure tggqmeh9702/16/2024Mass of right lung02/16/2024 Xhmneabxqusl62/22/5176Fpasct32/22/2024TIA (transient ischemic attack)02/16/2024 Xyluok2512/24/2023Hydronephrosis with ureteral stricture, not elsewhere classified 12/24/2023UPJ stricture, /29/2024Hypertensive kidney disease, stage V 2Aortic valve haxbilidbnpbo48/14/2022Mitral valve regurgitation 12/08/2021hronic fibrosis of lung10/23/2021Long term (current) use of aspirin 1Paroxysmal A-fib07/05/2020 Overview (07/05/2020): happened during her stress test. History of eauzikz8706/17/2020Lung qtzygnicr71/05/2019 Overview (07/05/2020): CT stable [address] [place] continues to confirm no change 2019 Arthritis of left foot05/24/2018Adjustment disorder with mixed anxiety and depressed mood06/30/2015Other chronic nonalcoholic liver baddzms0503/20/2008 Encounter for long-term (current) use of other mxqznskbpso58/02/2008Insomnia, oqpsufijzxe50/01/2008HypothyroidismDiaphragmatic hernia without mention of obstruction or gangreneEsophageal refluxHyperlipidemiaEdema Overview (03/10/2008): echo w/ EF 60% 01/31 Vitamin D deficiency Resolved Problems ProblemNoted DateDiagnosed DateResolved DateAnticoagulation monitoring, INR range 2-310 Overview (07/13/2022): 07/13/22 Transition from Eliquis to Warfarin Chest pain, ixiankkcern11 Overview (09/02/2007): angiogram: trivial coronary artery disease Unspecified sleep apnea01/04/2008 Overview (09/02/2007): uses CPAP Unspecified essential zjvfnaxxhctf81/27/2012 Encounters DateTypeDepartmentCare ClxoSxnqhsluldv11/16/2025Telephone [address] [address] Joann Motta DO Prior Authorization (tiotropium (SPIRIVA HANDIHALER) 18 mcg inhalation capsule) 09/07/2025Results Follow-Up [address] [address] Joann Motta DO 09/06/2025 2:30 PM CSTOffice Visit [address] [address] Joann Motta DO Follow Up (Questions about using volteran gel for foot - dr. Hazel wanted to confirm ok with her kidneys )09/06/20252976Nakjvc36/10/8264Icaass50/09/2025 1:45 PM CSTOffice Visit [address] [address] Chris Hazel, DPM Consult (Bilateral foot pain, L>R)09/03/20250277Hmkyjw97/12/2025 1:45 PM STEAM TRAIN DRIVER Ancillary Procedure [facility] [address] [facility] [place] [address] 08/08/2025 1:15 PM CSTOffice Visit [facility] [address] [facility] [place] [address] Joann Motta DO Hospital F/U (08/03, Foot drop, Left Hip pain )08/08/20250055Almjle23/07/2025Orders Only [facility] Scanner 1 scan: (1-Ord) [facility], US VENOUS LE LT, Orders Only [facility] Scanner 1 scan: (1-Ord) [facility] HIP LT WO CON, Orders Only [facility] Scanner 1 scan: (1-Ord) [facility] LT MIN 2V, 51 2:00 PM CDTOffice Visit [facility] [address] [address] Jose Eduardo Ybarra MD CV General Cardiology Est (Paroxysmal A-fib (HC)/Joann Motta DO/)07/05/2025 Bxrtkw4707/04/2025 3:45 PM CDTOffice Visit [facility] [address] [facility] [place] [address] Joann Motta DO Neck Pain/problem (RIGHT neck pain - has had previous neck injections ); Diarrhea (X1 day - had chills and explosive stools )07/04/2025Telephone [facility] [address] [facility] [address] [place] [address] Jose Flores DO Xmlsjgogt69/07/0572Kqqfme88/06/2025Travelfrom Last 3 Months Immunizations ImmunizationAdministration DatesNext DueInfluenza Virus, Hwizctgfspg98/20/2016, 06/24/2015,07/17/2014,07/25/2013Influenza, High-dose Yjjsnjmweij82/20/2016, 06/24/2015,07/17/2014Influenza, IIV3 (Age >=3 years)07/25/2013,08/13/2008 Pneumococcal Poly,23-Valent (Pneumovax)09/15/2005Pneumococcal conj 13-Valent (Prevnar 13)04/20/2017Td (Age >=7 Years)01/26/2008,02/26/1988Td, Preservative Free (age >= 7 Years)01/26/2008Zoster (Zostavax-ZVL, live)01/26/2008 Family History Medical HistoryRelationNameCommentsCancerBrother 1MarvBladderCancer-colonBrother 1MarvParkinsonismBrother 1MarvHeart DiseaseBrother 2DennyHeart attackBrother 2 DennyDrug AbuseDaughter 1JaneThyroid DiseaseDaughter 1JaneThyroid Disease Daughter 2AmyHeart DiseaseFatherNo Known ProblemsGrandchildAllyCancerMother stomach, age 87StrokePaternal AuntCancer-prostatePaternal GrandfatherUrinary tract infectionSon 1EricLots of urinary issuesVitiligoSon 1EricStrokeSon 2John RelationNameStatusCommentsBrother 1MarvDeceasedBrother 2DennyAliveDaughter 1Jane AliveDaughter 2AmyAliveFatherDeceasedGrandchildAllyAliveMaternal Grandfather DeceasedMaternal GrandmotherDeceasedMotherDeceasedPaternal AuntPaternal GrandfatherDeceasedPaternal GrandmotherDeceasedSon 1EricAliveSon 2JohnAlive Social History Tobacco UseTypesPacks/DayYears UsedDateSmoking Tobacco: NeverSmokeless Tobacco: Never Tobacco Cessation:Counseling Given: Yes Alcohol UseStandard Drinks/WeekCommentsNot Currently0 (1 standard drink = 0.6 oz pure alcohol)rarePHQ-2AnswerDate RecordedPHQ-2 TOTAL SYTUZ880Social ConnectionsAnswerDate RecordedDo you often feel lonely or isolated from those around you?lcohol UseAnswerDate RecordedHow often do you have a drink containing alcohol?How many drinks containing alcohol do you have on a typical day when you are drinking?How often do you have five or more drinks on one occasion?Financial Resource StrainAnswer Date RecordedDifficulty of Paying Living Zgbdyxgg707/08/2025Difficulty of Paying Living ExpensesNot on file02/01/2025Food InsecurityAnswerDate RecordedDo you worry your food will run out before you are able to buy more? Transportation NeedsAnswerDate RecordedDoes lack of transportation keep you from medical appointments?Does lack of transportation keep you from work, meetings or getting things that you need?Housing StabilityAnswerDate RecordedWhat is your housing situation today?UtilitiesAnswerDate RecordedDo you have trouble paying for utilities (for example, heat, electricity, water, phone)?CommentsNoSex and Gender InformationValueDate RecordedSex Assigned at BirthNot on fileLegal SexFemale 10/10/2012 5:23 AM CSTGender IdentityNot on fileSexual OrientationNot on file OccupationIndustryJob Start DateJob End DateRetiredNot on fileNot on fileNot on file Obstetrics History GravidaParaTermPretermABIABSABEctopicMultipleLivingLive Bbqbga019308ZdlpLoqwqsp GATotal LaborLabor/2nd/9mgEyzcyqJgxChxlEnsvAFRKznE1H8JmczLnkq74/14/1962TermFVag HubmvkXrdi87/01/0241WethAIgzJsgd28/10/4186WygcIWogMvx96/19/0347Hopcokp94t8gOPts LivingEricCommentsFOUR LIVE BIRTHS AND ONE ADOPTION Last Filed Vital Signs Vital SignReadingTime TakenCommentsBlood Ipumdrdu764/7209/06/2025 2:37 PM STEAM TRAIN DRIVER Fikry695909/06/2025 2:37 PM JYBXixmijgyudg87.6 ??C (97.9 ??F)04/12/2025 1:03 PM CDTRespiratory Ffdx945803/03/2025 12:17 PM CDTOxygen Sgrsartiyp20%09/06/2025 2:37 PM CSTInhaled Oxygen Concentration--Acqgjm72.9 kg (174 lb)07/05/2025 2:00 PM CDT Wuzhak721.6 cm (5' 4)07/05/2025 2:00 PM CDTBody Mass Index29.8707/05/2025 2:00 PM CDT Plan of Treatment DateTypeDepartmentCare Team (Latest Contact Info)Mfodsggwoyr94/25/2026 1:40 PM CSTOffice Visit [facility] [address] [place] [address] Ricky Canada MD [address] [place] [address] Health MaintenanceDue DateLast DoneCommentsZoster (shingles) series for age 50+ (2 of 3)RSV vaccine for adults or (1 - 1-dose 75+ series)2015Tetanus ooexhoh76, 01/26/2008, 02/26/1988 COVID-19 vaccine series ( season)2025Influenza Vaccine (#1) 5111/16/2015, 09/15/2016, 06/24/2015, Additional history exists Depression screening for age 12+, 07/25/2024, 01/05/2022, Additional history existsMedicare Wellness for age 65+, 01/05/2022MI (ht and wt on same day) for age 18+, 03/26/2025, 07/25/2024, Additional history existsDEXA/DXA scan for age 65+ Ofbrrywiv16/03/2009Pneumococcal series for age 50+Lotzoenrr94/25/2017, 09/15/2005Hepatitis B series for 19+Aged OutNo longer eligible based on patient's age to complete this topic Procedures Procedure NamePriorityDate/TimeAssociated DiagnosisCommentsHEMOGLOBINRoutine 09/06/2025 3:02 PM STEAM TRAIN DRIVER Anemia of chronic disease UMOTIXKATEfijjcm81/11/2025 3:02 PM STEAM TRAIN DRIVER Renal insufficiency XR FOOT 3 VIEWS KYEFWxkxhqf81/12/2025 2:29 PM STEAM TRAIN DRIVER Foot pain, left URIC GTLYXdahkiu06/12/2025 2:04 PM STEAM TRAIN DRIVER Foot pain, left SCAN-ULTRASOUND DXSZWN3808/03/2025 12:00 AM STEAM TRAIN DRIVER SCAN-CT SWUYCZYDRURNXB98/07/2025 12:00 AM CSTSCAN-RADIOLOGY ZDFDLB0208/03/2025 12:00 AM STEAM TRAIN DRIVER URINALYSIS XAPKHJHLHXJMLDJ10/08/2025 4:19 PM CDT Suprapubic pain URINE TVVOGRAEgmfktm31/08/2025 4:19 PM CDT Suprapubic pain URINALYSIS MACROSCOPIC - [facility] ONLY POC DIP ([facility])Hujhemy4607/04/2025 4:19 PM CDT Suprapubic pain XR DXA BONE DENSITY 2 SITES CSEGCYjgjvhg89/03/2009 Osteoporosis Screening from Last 3 Months or Most Recently Relevant to Health Maintenance Results * (ABNORMAL) HEMOGLOBIN (09/06/2025 3:02 PM STEAM TRAIN DRIVER)ComponentValueRef RangeTest MethodAnalysis TimePerformed AtPathologist SignatureHEMOGLOBIN9.5(L)11.7 - 15.5 g/dL09/07/2025 3:47 AM CSTQUEST CBKLMYUVDRXDCN73.981.4 - 101.7 fL 09/07/2025 3:47 AM CSTQUEST DIAGNOSTICSSpecimen (Source)Anatomical Location / LateralityCollection Method / VolumeCollection TimeReceived TimeBloodBLOOD SPECIMEN / UnknownQuest Collect / Rrzyter2309/06/2025 3:02 PM CST09/06/2025 3:02 PM STEAM TRAIN DRIVER Narrative Authorizing ProviderResult TypeResult StatusAdei Александрq DOHEMATOLOGYFinal Result Performing OrganizationAddressCity/State/ZIP CodePhone Number [facility] [address] [place] [address], [place] [phone] * POTASSIUM (09/06/2025 3:02 PM STEAM TRAIN DRIVER)ComponentValueRef RangeTest MethodAnalysis TimePerformed AtPathologist SignaturePOTASSIUM5.03.5 - 5.3 mmol/L111/08/2024 5:07 AM CSTQUEST DIAGNOSTICSSpecimen (Source)Anatomical Location / Laterality Collection Method / VolumeCollection TimeReceived TimeBloodBLOOD SPECIMEN / UnknownQuest Collect / Kyletiz3909/06/2025 3:02 PM CST09/06/2025 3:02 PM STEAM TRAIN DRIVER Narrative Authorizing ProviderResult TypeResult StatusAdei Kalia DOCHEMISTRYFinal Result Performing OrganizationAddressCity/State/ZIP CodePhone Number [facility] [place] [address] [place] [address], * XR FOOT 3 VIEWS LEFT (08/08/2025 2:29 PM STEAM TRAIN DRIVER)Anatomical RegionLaterality ModalityFEET, FOOT LComputed RadiographySpecimen (Source)Anatomical Location / LateralityCollection Method / VolumeCollection TimeReceived Time08/08/2025 2:42 PM STEAM TRAIN DRIVER Impressions 08/08/2025 2:42 PM STEAM TRAIN DRIVER Small calcaneal spurs. 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 Osteopenia. No acute fracture. Dictated by Santos Cox MD @ 08/08/2025 2:42:52 PM (Electronically Signed) Narrative 08/08/2025 2:42 PM STEAM TRAIN DRIVER For Patients: As a result of the Century Cures Act, medical imaging exams and procedure reports are released immediately into your electronic medical record. You may view this report before your referring provider. If you have questions, please contact your health care provider. Indication: Left foot pain Technique: Three views left foot Comparison: 03/08/2013 Procedure Note Santos Cox MD - 08/08/2025 For Patients: As a result of the Century Cures Act, medical imagingexams and procedure reports are released immediately into your electronicmedical record. You may view this report before your referring provider.If you have questions, please contact your health care provider. Indication: Left foot pain Technique: Three views left foot Comparison: 03/08/2013 IMPRESSION: Small calcaneal spurs. Midfoot degenerative joint disease with dorsalspurring. Osteopenia. No acute fracture. Dictated by Santos Cox MD @ 08/08/2025 2:42:52 PM (Electronically Signed) Authorizing ProviderResult TypeResult StatusJoann Motta DOGENERAL IMAGINGFinal Result * URIC ACID (08/08/2025 2:04 PM STEAM TRAIN DRIVER)ComponentValueRef RangeTest MethodAnalysis TimePerformed AtPathologist SignatureURIC ACID5.52.5 - 7.0 mg/dL08/09/2025 3:54 AM CSTQUEST DIAGNOSTICSComment:Therapeutic target for gout patients: <6.0 mg/dLSpecimen (Source)Anatomical Location / LateralityCollection Method / VolumeCollection TimeReceived TimeBloodBLOOD SPECIMEN / UnknownQuest Collect / Slehosr8308/08/2025 2:04 PM CST08/08/2025 2:04 PM STEAM TRAIN DRIVER Narrative Authorizing ProviderResult TypeResult Mani Motta DOCHEMISTRYFinal Result Performing OrganizationAddressCity/State/ZIP CodePhone Number [facility] [place] [id number] [place] [address], * SCAN-RADIOLOGY REPORT (08/03/2025 12:00 AM STEAM TRAIN DRIVER)Anatomical RegionLaterality ModalityOther Narrative Authorizing ProviderResult TypeResult StatusScannerOTHERFinal Result * SCAN-ULTRASOUND REPORT (08/03/2025 12:00 AM STEAM TRAIN DRIVER)Anatomical RegionLaterality ModalityOther Narrative Authorizing ProviderResult TypeResult StatusScannerOTHERFinal Result * SCAN-CT INTERPRETATION (08/03/2025 12:00 AM STEAM TRAIN DRIVER)Anatomical RegionLaterality ModalityOther Narrative Authorizing ProviderResult TypeResult StatusScannerOTHERFinal Result * (ABNORMAL) POCT Urinalysis Dipstick Only [[id number]] (07/04/2025 4:19 PM CDT) ComponentValueRef RangeTest MethodAnalysis TimePerformed AtPathologist SignatureSPECIFIC GRAVITY1.0101.001 - 1.6041907/04/2025 4:34 PM [facility] LRQGKTPSXLVMOINKIOLLBHGQLXAAX94/08/2025 4:34 PM [facility] HBOIXFFVLNDCQRSVDLKZUZVCCXDLI50/08/2025 4:34 PM [facility] VKZNDJAMPVYBTWWVDNCNLJQSYMJYD68/08/2025 4:34 PM BILIRUBINNEGATIVENEGATIVE07/04/2025 4:34 PM OCCULT BLOODTRACE(A)MBHPQRSV18/08/2025 4:34 PM NITRITENEGATIVENEGATIVE07/04/2025 4:34 PM [facility] CLINICPH7.05.0 - 8.010 4:34 PM LEUKOCYTE QYPXMXAFKJHABDIAXSOBTPXF85/08/2025 4:34 PM CDT [facility]ENTERpecimen (Source)Anatomical Location / LateralityCollection Method / VolumeCollection TimeReceived TimeUrineURINE SPECIMEN / UnknownNon-Blood / Tildpkn9507/04/2025 4:19 PM CDT1 4:19 PM CDT Narrative Authorizing ProviderResult TypeResult StatusAdei Kalia DOURINEFinal Result Performing OrganizationAddressCity/State/ZIP CodePhone Number [facility] [address] [place] [address], [place] [phone] [facility] [address] [place] [address], [place] [phone] * URINALYSIS MICROSCOPIC [07049.1] - STAT (07/04/2025 4:19 PM CDT)ComponentValue Ref RangeTest MethodAnalysis TimePerformed AtPathologist SychxsnfdKJV8-50-7, None Seen /HPF07/05/2025 6:51 AM CDTALL[facility] VAMZSCKYTDISH6-83-7, 3-5, None Seen /HPF07/05/2025 6:51 AM [facility] LABORATORYBACTERIANone SeenNone Seen, Rare, Few Bacteria/HPF07/05/2025 6:51 AM [facility] EPITHELIAL CELLSNone SeenNone Seen, Few Epi/HPF07/05/2025 6:51 AM [facility] LABORATORYHYALINE CASTS0-20-2, 3-5 /LP07/05/2025 6:51 AM [facility] LABORATORYSpecimen (Source) Anatomical Location / LateralityCollection Method / VolumeCollection Time Received TimeUrineURINE SPECIMEN / UnknownNon-Blood / Qqlcuto9107/04/2025 4:19 PM CDT1 4:19 PM CDT Narrative Authorizing ProviderResult TypeResult StatusAdei Kalia DOURINEFinal Result Performing OrganizationAddressCity/State/ZIP CodePhone Number [facility] [address] [address], * URINE CULTURE [51865.2] (07/04/2025 4:19 PM CDT)ComponentValueRef RangeTest MethodAnalysis TimePerformed AtPathologist SignatureCULTURE<10,000 CFU/mL multiple jeuwwrnvv63/10/2025 9:01 AM [facility] LABORATORYSpecimen (Source)Anatomical Location / LateralityCollection Method / VolumeCollection TimeReceived TimeUrineURINE SPECIMEN / UnknownNon-Blood / Oqwyotm0507/04/2025 4:19 PM CDT1 4:19 PM CDT Narrative Authorizing ProviderResult TypeResult StatusAdei Kalia DOMICROBIOLOGYFinal ResultPerforming OrganizationAddressCity/State/ZIP CodePhone Number [facility] [address] [address], [place] * XR DEXA BONE DENSITY 2 SITES (04/29/2009)Anatomical RegionLateralityModality Spine, HIPS, HIPL, HIPRBone DensitometrySpecimen (Source)Anatomical Location / LateralityCollection Method / VolumeCollection TimeReceived Time Narrative Authorizing ProviderResult TypeResult StatusJoe Mata DODEXAFinal Result from Last 3 Months or Most Recently [place]vant [place] [phone] Advance Directives * Full Code (Latest Code Status on File) Date ActivatedDate InactivatedComments03/06/2024 7:50 AM03/06/2024 1:33 PMQuestion AnswerCommentsCode Status Discussion:* Unable to Assess Preferences, Provider to review later * Full Code Date ActivatedDate InactivatedComments05/26/2023 11:23 AM05/26/2023 4:43 PM QuestionAnswerCommentsCode Status Discussion:* Discussed * Full Code Date ActivatedDate InactivatedComments05/31/2014 8:45 AM05/31/2014 2:46 PM * Full Code Date ActivatedDate InactivatedComments06/01/2007 2:52 PM06/01/2007 10:10 PM * Full Code Date ActivatedDate InactivatedComments06/01/2007 12:40 PM06/01/2007 2:52 PM Care Teams Team MemberRelationshipSpecialtyStart DateEnd Date Joann Motta DO [address] [place] [address] PCP - GeneralFamily Practice03/01/24 Zachariah Porter MD [address] [facility] [address] [address] Nfvkzkjoyw30/21/25 [place], [facility] Nwgmbjxwws92/21/25
--- OUTSIDE RECORDS SUMMARY | 2025-09-24 08:55 | XMS_ITS | Clinical Summary ---
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 Role Phone Irma Mandujano MD Primary Care Provider [phone] Allergies Active AllergyReactionsCriticalityNoted DateCommentsAce Bwuaynbbeu53/12/2012 Cbygna6309/07/2012Metoprolol Nlhdshghj58/12/2012 Medications MedicationSigDispense QuantityRefillsLast FilledStart DateEnd DateStatus vitamin D3 (CHOLECALCIFEROL) 50 mcg (2000 units) tablet Take 1 tablet by mouth dailyActive levothyroxine (SYNTHROID/LEVOTHROID) 88 MCG tablet Take 88 mcg by mouth dailyActive losartan (COZAAR) 50 MG tablet Take 50 mg by mouth 2 times daily.Active magnesium oxide (MAG-OX) 400 MG tablet Take 400 mg by mouth at bedtime.Active Polyethylene Glycol 400 0.25 % GEL Apply 1-2 drops to eye every 2 hours as needed (dry eyes) Uses Blink brandActive hydroCHLOROthiazide 12.5 MG tablet Indications:Essential hypertensionTake 1 tablet (12.5 mg) by mouth daily 30 tablet 02/18/2024ctive amLODIPine (NORVASC) 5 MG tablet Take 1 tablet by mouth daily.05/15/2024ctive aspirin 81 MG EC tablet Take 81 mg by mouth daily.Active Melatonin 10 MG TABS tablet Take 10 mg by mouth at bedtime.Active potassium gluconate 2.5 MEQ tablet Take 2.5 mEq by mouth at bedtime.Active Multiple Vitamins-Minerals (PRESERVISION AREDS 2) CHEW Take 1 tablet by mouth daily.Active Active Problems ProblemNoted DateDiagnosed DateUrinary tract bmelziebi07/14/2024iaphragmatic ktpgfp7902/17/20247965Tsgzj52/23/2024 Overview (02/17/2024): echo w/ EF 60% 01/31 Vitamin D tiqdkktikn77/23/2024enal taxiuuuobcuep97/23/2024Hypertensive urgency 02/17/2024nemia, unspecified type02/17/2024Ureteral stent bpymybl5602/17/2024 Ddjgsy6002/16/2024HI (closed head injury)02/16/2024Mass of right lung02/16/2024 TIA (transient ischemic attack)02/16/20244708Kryqgb54/29/2024Hydronephrosis with ureteral stricture, not elsewhere yynmucsyxr29/29/2024Long term current use of zfwmqpzyglzqe73/29/2024trial fibrillation, unspecified type12/18/2022 Hypertensive kidney disease, stage V001/05/2022ortic valve regurgitation 12/08/2021Mitral valve /14/2022Gastroesophageal reflux disease without jbbinvwrzku51/28/2022hronic fibrosis of lung10/23/2021Essential sqrnbjcbguvf47/04/2021ong term (current) use of jprybhn1207/31/2021History of ydowvka2106/17/20205027Mpopbidfkdtqxw37/05/1135Wwdkbuqjvciafw76/27/2020Lung granuloma 03/01/2019 Overview (02/17/2024): CT stable [address] [place] continues to confirm no change 2019 Arthritis of left foot05/24/2018Adjustment disorder with mixed anxiety and depressed mood06/30/2015Insomnia, joiveegtiog91/01/2008 Social History Tobacco UseTypesPacks/DayYears UsedDateSmoking Tobacco: NeverSmokeless Tobacco: Never Tobacco Cessation:Counseling Given: Not Answered Alcohol UseStandard Drinks/WeekCommentsNo0 (1 standard drink = 0.6 oz pure alcohol)Adolescent EducationAnswerDate RecordedGetting School Help NeededNot on file02/17/2024Food InsecurityAnswerDate RecordedWithin the past 12 months, did you worry that your food would run out before you got money to buy more?No 06/10/2024Within the past 12 months, did the food you bought just not last and you didn???t have money to getmore?No06/10/2024Housing StabilityAnswerDate RecordedDo you have housing? (Housing is defined as stable permanent housing and does not include staying outside in a car, in a tent, in an abandoned building, in an overnight snf, or couch-surfing.)Yes06/10/2024re you worried about losing your housing?No06/10/2024Financial Resource StrainAnswerDate Recorded Within the past 12 months, have you or your family members you live with been unable to get utilities (heat, electricity) when it was really needed?No 06/10/2024Transportation NeedsAnswerDate RecordedWithin the past 12 months, has lack of transportation kept you from medical appointments, getting your medicines, non-medical meetings or appointments, work, or from getting things that you need?No06/10/2024Interpersonal SafetyAnswerDate RecordedDo you feel physically and emotionally safe where you currently live?Yes06/11/2024Within the past 12 months, have you been hit, slapped, kicked or otherwise physically hurt by someone?No06/11/2024Within the past 12 months, have you been humiliated or emotionally abused in other ways by your partner or ex-partner?No06/11/2024 CommentsNoSex and Gender InformationValueDate RecordedSex Assigned at BirthNot on fileLegal NwkVlhmai71/04/2012 3:20 AM CSTGender IdentityNot on file Sexual OrientationNot on file Last Filed Vital Signs Vital SignReadingTime TakenCommentsBlood Iljykdsq253/65006/12/2024 7:39 AM CDT Vntuq7587/16/2024 7:39 AM EGFWqfjodylpzt86.6 ??C (97.8 ??F)06/12/2024 7:39 AM CDTRespiratory Yaeh316906/12/2024 7:39 AM CDTOxygen Zbgeccvurp24%06/12/2024 7:39 AM CDTInhaled Oxygen Concentration--Spubru61.9 kg (167 lb 6.4 oz)06/11/2024 7:19 AM GJZElvksz716 cm (5' 3)02/17/2024 10:23 AM CDTBody Mass Index29.65002/17/2024 10:23 AM CDT Plan of Treatment Health MaintenanceDue DateLast DoneCommentsADVANCE CARE DGKKSAVL1940ANNUAL REVIEW OF HM MFLPSI98 1940ASTHMA ACTION PLAN1940ASTHMA CONTROL TEST 1940 2979JPMQE48/10/6585GRLQUOKPXPDL94/10/1906FXXYEFJNAOL1940PHOSPHORUS 1940ALK PHOS1941FALL RISK NMPMCADPTL65/10/2005DTAP/TDAP/TD VACCINE (1 - Tdap), 02/26/1988ZOSTER VACCINE (2 of 3)03/22/2008 01/26/2008RSV VACCINE (1 - 1-dose 75+ series)2015MEDICARE ANNUAL WELLNESS VISIT//088086/9844JEQF93////6633WHK50///, 06/11/2024, 02/18/2024, Additional history existsPHQ-2 (once per calendar year) 09/27/20240196ZKGPEEEWKV99//338826/, 02/17/2024TSH W/FREE T4 REFLEX /OVID-19 VACCINE ( - season)2025INFLUENZA VACCINE (#1)/, 06/24/2015, 07/17/2014, Additional history existsPNEUMOCOCCAL VACCINE 50+ OALVUIyianrazb31/25/2017, 09/15/2005URINALYSIS Ovcquhtzv06/24/2024HPV VACCINE (No Doses Required)CompletedMENINGITIS VACCINE Aged OutNo longer eligible based on patient's age to complete this topic Medical Devices ImplantedTypeAreaManufacturerDevice IdentifierShelf Expiration DateModel / Serial / LotStent Ureteral Polaris Ultra [id number] [id number] - [id number] Implanted:Qty: 1 on 06/10/2024 by [facility] [id number] 12/12/[id number] / / [id number] Procedures Procedure NamePriorityDate/TimeAssociated DiagnosisCommentsBASIC METABOLIC PANEL Timed06/12/2024 8:40 AM CDT CBC WITH NOLOUQDIQCtlzpap46/15/2024 7:03 AM CDT UA MACROSCOPIC WITH REFLEX TO MICRO AND GHBDCDRKSNF06/24/2024 11:04 AM CDT TSH WITH FREE T4 REFLEXAdd-On02/17/2024 11:05 AM CDT from Last 3 Months or Most Recently Relevant to Health Maintenance Results * (ABNORMAL) Basic metabolic panel (06/12/2024 8:40 AM CDT)ComponentValueRef RangeTest MethodAnalysis TimePerformed AtPathologist LixwnibnzBfogwv370082 - 145 mmol/L06/12/2024 9:14 AM CDTS LABORATORYPotassium4.23.4 - 5.3 mmol/L 06/12/2024 9:14 AM CDTSH SYLKIBSAXHOybmytda81939 - 107 mmol/L06/12/2024 9:14 AM CDTS LABORATORYCarbon Dioxide (CO2)2422 - 29 mmol/L06/12/2024 9:14 AM CDT LABORATORYAnion Amg910 - 15 mmol/L06/12/2024 9:14 AM CDTS LABORATORYUrea Mbjqzjaa44.3(H)8.0 - 23.0 mg/dL06/12/2024 9:14 AM CDTS LABORATORYCreatinine 1.89(H)0.51 - 0.95 mg/dL06/12/2024 9:14 AM CDTS LABORATORYGFR Ouowzrvq65(L) >60 mL/min/1.89c89006/12/2024 9:14 AM CDTS LABORATORYComment:eGFR calculated using 2020 CKD-EPI equation.Calcium9.08.8 - 10.4 mg/dL06/12/2024 9:14 AM CDTS LABORATORYComment:Reference intervals for this test were updated on 04/11/2024 to reflect our healthy population more accurately. There may be differences in the flagging of prior results with similar values performed with this method. Those prior results can be interpreted in the context of the updated reference intervals.Jqzjlon906(H)70 - 99 mg/dL06/12/2024 9:14 AM TS LABORATORY Specimen (Source)Anatomical Location / LateralityCollection Method / Volume Collection TimeReceived TimeBloodBLOOD SPECIMEN / UnknownVenipuncture / Dcdsmio0306/12/2024 8:40 AM CDT06/12/2024 8:49 AM CDT Narrative Authorizing ProviderResult TypeResult StatusKirsten Devora Saavedra DOLAB - BLOOD ORDERABLESFinal ResultPerforming OrganizationAddressCity/State/ZIP Code Phone Number LABORATORY [facility] [address], [address] [place] [address], [facility] [phone] * (ABNORMAL) CBC with platelets (06/11/2024 7:03 AM CDT)ComponentValueRef Range Test MethodAnalysis TimePerformed AtPathologist SignatureWBC Count9.84.0 - 11.0 10e3/uL06/11/2024 7:24 AM [facility] LABORATORYRBC Count3.00(L)3.80 - 5.20 10e6/uL06/11/2024 7:24 AM [facility] LABORATORYHemoglobin9.0(L)11.7 - 15.7 g/dL 06/11/2024 7:24 AM [facility] CLEZTRFZETQkoaaipojh72.9(L)35.0 - 47.0 %06/11/2024 7:24 AM [facility] UBUXOTFFYAPOF3514 - 100 fL06/11/2024 7:24 AM TS LABORATORYH 30.026.5 - 33.0 pg06/11/2024 7:24 AM [facility] BFPSQGYAECUJEP65.331.5 - 36.5 g/dL 06/11/2024 7:24 AM [facility] MDGAYSZQEHOSR37.5(H)10.0 - 15.0 %06/11/2024 7:24 AM [facility] LABORATORYPlatelet Jdomr420629 - 450 10e3/uL06/11/2024 7:24 AM [facility] LABORATORYSpecimen (Source)Anatomical Location / LateralityCollection Method / VolumeCollection TimeReceived TimeBloodSTRUCTURE OF RIGHT HAND / Unknown Venipuncture / Xkwyscv0806/11/2024 7:03 AM CDT06/11/2024 7:22 AM CDT Narrative Authorizing ProviderResult TypeResult StatusMicvicente Reardon DOLAB - BLOOD ORDERABLESFinal ResultPerforming OrganizationAddressCity/State/ZIP CodePhone Number LABORATORY [facility] [address], [address] [place] [address], [facility] [phone] * (ABNORMAL) UA Macroscopic with reflex to Microscopic and Culture (02/18/2024 11:04 AM CDT)ComponentValueRef RangeTest MethodAnalysis TimePerformed At Pathologist SignatureColor UrineStrawColorless, Straw, Light Yellow, Yellow 02/18/2024 11:33 AM [facility] LABORATORYAppearance ZipbsRzjnhWojrj23/24/2024 11:33 AM [facility] LABORATORYGlucose UrineNegativeNegative mg/dL02/18/2024 11:33 AM [facility] LABORATORYBilirubin TouwlIafurprnTiicbswp54/24/2024 11:33 AM [facility] LABORATORYKetones UrineNegativeNegative mg/dL02/18/2024 11:33 AM [facility] LABORATORYSpecific Weikert Urine1.0111.003 - 1.5786802/18/2024 11:33 AM [facility] LABORATORYBlood UrineTrace(A)Duzhaeus90/24/2024 11:33 AM [facility] LABORATORYpH Urine6.55.0 - 7.005 11:33 AM [facility] LABORATORYProtein Albumin Urine NegativeNegative mg/dL02/18/2024 11:33 AM [facility] LABORATORYUrobilinogen Urine NormalNormal, 2.0 mg/dL02/18/2024 11:33 AM [facility] LABORATORYNitrite Urine SkzffnkgWefwnktx81/24/2024 11:33 AM [facility] LABORATORYLeukocyte Esterase Urine Moderate(A)Ucqsqzpr38/24/2024 11:33 AM [facility] LABORATORYRBC Urine4(H)<=2 /HPF 02/18/2024 11:33 AM CDTS LABORATORYWBC Urine8(H)<=5 /HPF02/18/2024 11:33 AM CDTSH LABORATORYSquamous Epithelials Urine<1<=1 /HPF02/18/2024 11:33 AM CDTS LABORATORYSpecimen (Source)Anatomical Location / LateralityCollection Method / VolumeCollection TimeReceived TimeUrineMID-STREAM URINE SPECIMEN / UnknownNon- blood Collection / Rgyyhca8502/18/2024 11:04 AM CDT02/18/2024 11:24 AM CDT Narrative LABORATORY - 02/18/2024 11:33 AM CDT Urine Culture ordered based on laboratory criteria Authorizing ProviderResult TypeResult StatusNicginny Renteria NPLAB - URINE ORDERABLESFinal ResultPerforming OrganizationAddressCity/State/ZIP Code Phone Number LABORATORY [facility] [address], [address] [place] [address], [facility] [phone] * TSH with free T4 reflex (02/17/2024 11:05 AM CDT)ComponentValueRef RangeTest MethodAnalysis TimePerformed AtPathologist SignatureTSH1.380.30 - 4.20 uIU/mL 02/17/2024 2:02 PM [facility] LABORATORYSpecimen (Source)Anatomical Location / LateralityCollection Method / VolumeCollection TimeReceived TimeBloodBLOOD SPECIMEN / UnknownVenipuncture / Xodlrxt8902/17/2024 11:05 AM CDT02/17/2024 11:10 AM CDT Narrative Authorizing ProviderResult TypeResult StatusEric Hitesh Moss DOLAB - BLOOD ORDERABLESFinal ResultPerforming OrganizationAddressCity/State/ZIP Code Phone Number LABORATORY [facility] [address], [address] [place] [address], [facility] [phone] from Last 3 Months or Most Recently Relevant to Health Maintenance Insurance Advance Directives For more information, please contact: [phone] * Full Code (Latest Code Status on File) Date ActivatedDate InactivatedComments06/10/2024 7:58 PM06/12/2024 5:05 PMAll basic and advanced life-sustaining interventions are performed as appropriate QuestionAnswerCommentsCode status determined by:* Discussion with patient/ legal decision maker * Full Code Date ActivatedDate InactivatedComments02/17/2024 3:57 PM02/18/2024 7:29 PMAll basic and advanced life-sustaining interventions are performed as appropriate QuestionAnswerCommentsCode status determined by:* Discussion with patient/ legal decision maker Care Teams Team MemberRelationshipSpecialtyStart DateEnd Date Irma Mandujano MD [address] [place] [address] PCP - [facility] Medicine02/23/24
--- OUTSIDE RECORDS SUMMARY | 2025-09-24 08:55 | XMS_ITS | Encounter Summary ---
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 Role Phone Elsewhere, Pcp Primary Care Provider Unavailabl e Encounter Details DateTypeDepartmentCare Team (Latest Contact Info)Snmlahukdzq33/19/2025linical Communication Department of Urology in [place], [place] [address] [place] [address] Dre Barcenas Social History Tobacco UseTypesPacks/DayYears UsedDateSmoking Tobacco: NeverSmokeless Tobacco: NeverAlcohol UseStandard Drinks/WeekCommentsNever0 (1 standard drink = 0.6 oz pure alcohol)Humiliation, Afraid, Rape, and Kick questionnaireAnswerDate RecordedWithin the last year, have you been afraid of your partner or ex-partner?Patient unable to wypzig4809/13/2025Within the last year, have you been humiliated or emotionally abused in other ways by your partner or ex-partner? Patient unable to boiwza3009/13/2025Within the last year, have you been kicked, hit, slapped, or otherwise physically hurt by your partner or ex-partner?Patient unable to lldalz9709/13/2025Within the last year, have you been raped or forced to have any kind of sexual activity by your partner or ex-partner?Patient unable to lauvdp4809/13/2025Hunger Vital SignAnswerDate RecordedWithin the past 12 months, [...] have received?Associate degree: occupational, technical, or vocational vxozvzk3805/27/2020Comments NoSex and Gender InformationValueDate RecordedSex Assigned at BirthFemale 02/19/2025 10:16 AM CDTLegal VeeGzkhec62/02/2017 2:16 PM CSTGender Identity Nnvkyf7802/19/2025 10:16 AM CDTSexual WnvcmgxedzdRubmpgmd43/26/2025 10:16 AM CDT documented as of this encounter Plan of Treatment DateTypeDepartmentCare Team (Latest Contact Info)Yzbdcrpprwi45/03/2026 8:00 AM CSTProcedure visit Department of Urology in [place], [place] [address] [place] [address] Rupert Loving M.D. [address] [place] [address] documented as of this encounter Visit Diagnoses Not on filedocumented in this encounter Care Teams Team MemberRelationshipSpecialtyStart DateEnd Date Elsewhere, Pcp PCP - GeneralInternal Medicine04/18/25documented as of this encounter
[2025-09-24 09:21] LABS: Appearance Urine Clear (Clear)
--- OUTSIDE RECORDS SUMMARY | 2025-09-24 09:33 | XMS_ITS | Data Portability ---
Author Organization [place] [facility] Address [address] [facility] [place] [address] Care Team Providers Care Splicing Supervisor Name Role Phone BRIAN HURD Referring Provider Assessment Encounter Date Assessment Date Assessment LastModified by Organization Details LastModified Time 01/18/2024 01/18/2024 83 Y/O FEMALE, H X OF RT HYDRONEPHROSIS, UTI, EARLY SEPSIS AND PLACEMENT OF A RT URETERAL STENT IN [place]. U/C POS WITH HORTON SENSITIVE ECOLI . NOW BACK TO BASELINE. C.T. 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 REVIEWED EXTENSIVE RECORDS, LABS FROM [place]. PLAN WILL SCHEDULE CYSTO, RT RETROGRADE AND REEVALUATE UPJ AND POSSIBLE STENT EXCHANGE.PROCEDURE EXPLAINED IN DETAIL. ALL QUESTIONS ANSWERED. 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 MARKED REDUCED RT RENAL FUNCTION. HTN WITH PREVIOUS STENT, HX OF EARLY SEPSIS. REVIEWED OPTIONS- DO NOTHING AND PROTECT FROM UTI'S, TRY AGAIN TO PLACE A STENT WITH CHANGES Q 4 MO, ROBOTIC UPJ REPAIR, RT NEPHRECTOMY . REVIEWED ALL OPTIONS INTERVIEW WITH DAUGHTER PRESENT PLAN SHE WILL REVIEW OPTIONS AND WE WILL TALK NEXT WEEK AND MAKE A DECISION. TIME 1 H.abywaln3Olk /03/2024 12:46:0///F with right UPJ obstruction. 1) Discussed options - chronic stent; with next stent change end August/early September; this could be reasonable if frequency/urgency can be improved, will try Gemtesa for this for now; she will be in [place] in Aug/Sep and will need to arrange with local urologist - Robotic pyeloplasty; this may be best option if she continues to have stent bother; discussed lowrisk of stricture, need for stent 6 weeks post-op, low risk of urinoma - Nephrectomy; would avoid this as kidney has >20% function; if further reduced function ie <15% could consider this in future - she will call if she wants to pursue pyeloplasty or nephrectomy 2) Urinary freq/urgency - [facility] zsgzkdtey75/09/2024 18:34:18 Plan of Treatment Reminders Order DateSubmit DateProviderLast Modified ByRandall DetailsLast Modified TimeDetailsAppointmentsNone recorded.LabNone recorded.ReferralNone recorded. ProceduresNone recorded.SurgeriesNone recorded.ImagingNone recorded.Medication OrdersNone recorded. Patient TargetsNo targets recorded. Patient InstructionsNo instructions recorded. Reason for Referral None Reported. Results Created Date Observation Date Name Description Value Unit Range Abnormal Flag Note LastModifiedBy Organization Detail LastModifiedTime 03/15/2024 03/15/2024 NM, kidney scan No observation recorded.[facility]St[facility] [address] [place], [address], 06/ 16:15:30 XR, kidney + ureter + bladderEXAM: XR, KIDNEY + URETER + BLADDER LOCATION: [facility] DATE: 06/29/2024 INDICATION: Crossing vessel and stricture [...] by: Adan Mijares MD on 06/29/2024 at 10:00dwpdxrhy31Zonjjgh Radiology - [facility] [address], [place], [address], 07/04/2024 18:02:3210ladder scan (PROC)No observation recorded.BARCODENot Cwhyymdgg46/03/2024 16:34:00 Result Notes Documentation Provider Name and Address Organization Details Recorded Time Xr, Kidney + Ureter + Bladder : EXAM: XR, KIDNEY + URETER + BLADDER LOCATION: [facility] DATE: 06/29/2024 INDICATION: Crossing vessel and stricture [...] on 06/29/2024 at 10:45 Maddie Odell PA-C [address] [place] [address],[address] [place] [address], [phone], [facility] 07/04/2024 18:02:32 Problems Name Problem SNOMED Code Status Onset Date Resolution Date Notes Provider Name and Address Organization Details Recorded Time Obstruction of pelviureteric junction 64101097 Active 01/18/2024 Stone Sage MD [address] [place] [address],[address], [address], [facility] Tnfxcop3701/18/2024 22:00:[id number]/03/2024 Stone Sage MD [address] [place] [address],[address], [address], [facility] Hxulzwn1603/29/2024 12:46:39Essential [id number] 03/29/2024shirley Sage MD [address] [facility],[address], [place], [address], [facility] [place] Petohsl9903/29/2024 12:46:47 Problem Notes None recorded. Procedures Surgical History Date Name Laterality Status Provider Name and Address Organization Details Recorded Time 06/29/2024 Bladder Scan Dusty [place] - [place] Dmqlcgv52/03/2024 12:00:33 Imaging Results None recorded. Procedure Notes None recorded. Medical Equipment None Reported. Allergies No known drug allergies Medications Name Sig Start Date Stop Date Status Note LastModified by Organization Details LastModified Time compair xlt compre cmpressr USE DIRECTED 01/18/2024ompletedNot AvailableNot AvailableNot Availablenebulizer tubing l704buaPX DIRECTED. REPLACE MASK AND TUBING EVERY 6 MONTHS.01/18/2024ompleted Not AvailableNot AvailableNot Availablelosartan 50 mg tabletTAKE 1 TABLET (50 MG) BY MOUTH TWICE A DAYactiveNot AvailableNot AvailableNot Available cyclobenzaprine 10 mg tabletTAKE 1 TABLET (10 MG) BY MOUTH AT BEDTIME IF NEEDED FOR MUSCLE SPASM.07/05/2024ompletedNot AvailableNot AvailableNot Available albuterol sulfate 2.5 mg/3 mL (0.083 %) solution for nebulizationINHALE 3 ML (2.5 MG) VIA A NEBULIZER EVERY 4 HOURS IF NEEDED FOR COUGH.activeNot Available Not AvailableNot Availableamlodipine 5 mg tabletTAKE 2 TABLETS (10 MG) BY MOUTH ONCE DAILY.07/05/2024ompletedNot AvailableNot AvailableNot Availabletramadol 50 mg tabletTAKE 1 TABLET (50 MG) BY MOUTH TWO TIMES DAILY.03/28/2024ompletedNot AvailableNot AvailableNot Availablecefadroxil 500 mg capsuleTAKE 1 CAPSULE (500 MG) BY MOUTH TWO TIMES DAILY FOR 7 DAYS.07/05/2024ompletedNot AvailableNot AvailableNot Availableoxycodone-acetaminophen 5 mg-325 mg tabletTAKE ONE TABLET BY MOUTH EVERY 6 HOURS IF NEEDED FOR SEVERE PAIN FOR UP TO 3 DAYS01/18/2024 completedNot AvailableNot AvailableNot Availableprednisolone acetate 1 % eye drops,suspensionINSTILL 1 DROP INTO EACH EYE EVERY MORNING FOR ONE WEEK 01/18/2024ompletedNot AvailableNot AvailableNot Availablecephalexin 500 mg capsuleTAKE 1 CAPSULE (500 MG) BY MOUTH THREE TIMES DAILY FOR 7 DAYS.07/05/2024 completedNot AvailableNot AvailableNot AvailableSynthroid 88 mcg tabletTAKE 1 TABLET (88 MCG) BY MOUTH BEFORE BREAKFAST.activeNot AvailableNot AvailableNot Availablehydrochlorothiazide 12.5 mg capsuleTAKE ONE CAPSULE BY MOUTH ONE TIME DAILY01/18/2024ompletedNot AvailableNot AvailableNot Availableomeprazole 20 mg capsule,delayed releaseTAKE ONE CAPSULE BY MOUTH EVERY DAY NEEDED.01/18/2024 completedNot AvailableNot AvailableNot Availablehydrochlorothiazide 25 mg tablet TAKE 1/2 TABLET BY MOUTH ONCE DAILY.07/05/2024ompletedNot AvailableNot AvailableNot Availablecefuroxime axetil 500 mg tabletTAKE ONE TABLET BY MOUTH TWICE A DAY NEEDED. TAKE NEEDED FOR SIGNS OR SYMTOMS OF URINARY TRACT VNPUZHYLW94/02/2024ompletedNot AvailableNot AvailableNot Available methylprednisolone 4 mg tablets in a dose packTAKE DIRECTED ON PACKAGE 01/18/2024ompletedNot AvailableNot AvailableNot Availableondansetron 4 mg disintegrating tabletDISSOLVE 1 TABLET ON THE TONGUE EVERY 8 HOURS NEEDED FOR NAUSEA AND UVZNSXNN62/23/2024ompletedNot AvailableNot AvailableNot Available oxycodone 5 mg tabletTAKE 1 TABLET BY MOUTH EVERY 6 HOURS NEEDED FOR PAIN 01/18/2024ompletedNot AvailableNot AvailableNot Availablemetoprolol tartrate 25 mg tabletTAKE ONE TABLET BY MOUTH TWICE A DAY - MAY TAKE AN ADDITIONAL TABLET FOR PALPITATIONS - DO NOT TAKEMORE THAN ONE EXTRA DOSE IN 24 HOURS01/18/2024 completedNot AvailableNot AvailableNot Availablehydrochlorothiazide 12.5 mg eqfpmp8303/28/2024ompletedNot AvailableNot AvailableNot Availablepeg 3350- electrolytes 236 gram-22.74 gram-6.74 gram-5.86 gram solutionDRINK 4,000 ML BY MOUTH ONE TIME FOR 1 DOSE UZNKRTEZ59/23/2024ompletedNot AvailableNot AvailableNot AvailableXarelto 20 mg tabletTAKE ONE TABLET BY MOUTH EVERY DAY 01/18/2024ompletedNot AvailableNot AvailableNot AvailableGemtesa 75 mg tablet Take 1 tablet every day by oral route./ompletedNot Available Not AvailableNot Available Vitals Date Recorded Body height Body mass index (BMI) Body weight Provider Name and Address Organization Details Last Updated DateTime 01/18/2024 160.02 cm 29.1 kg/m2 29131.15 german Sage MD [address] [place] [address] Urolog 01/18/2024 16:03:19 Date Recorded Body height Body mass index (BMI) Body weight Provider Name and Address Organization Details Last Updated DateTime 03/28/2024 160.02 cm 29.1 kg/m2 01175.15 german Sage MD [address] [place] [address] Urology 03/28/2024 16:45:08 Date Recorded Body height Body mass index (BMI) Body weight Provider Name and Address Organization Details Last Updated DateTime 07/05/2024 157.48 cm 29.4 kg/m2 48408.37 g Keenan cheney MD, PHD [address] [place] [address] Urology 07/05/2024 12:27:15 Social History Question Answer Notes LastModified by Organization D etails LastModified Time Tobacco Smoking Status Never Smoker Stone Sage MD [address] [place] [address] Kamzolj3601/18/2024 16:04:53What Was The Date Of Your Most Recent Tobacco Screening?07/05/2024moshaughnessyInformation not nadmlsvbs58/09/2024 Sex: Unknown Functional Status Question Answer Note LastModified by Organization D etails LastModified Time What is your level of alcohol consumption? None snmcykn6Frfzbnwbaii not /23/2024 Mental Status None recorded. Family History Nothing [...] Details Recorded Time pneumococcal polysaccharide PPV23 09/15/2005 complet ed Stone Sage MD [address] [place] [address],[address] [place] [address], [address], [facility] Zjuxyvt9301/18/2024 16:03:41Pneumococcal conjugate PCV 13004/20/2017 Liza Sage MD [address] [place] [address],[address] [place] [address], [phone], [facility]01/18/2024 16:03:41zoster live01/26/2008comОлег Sage MD [address] [place] [address],[address] [place] [address], [phone], [facility]01/18/2024 16:03:41Influenza, high-dose, trivalent, PF 06/24/2015comОлег Sage MD [address] [place] [address],[address] [place] [address], [phone], [facility]01/18/2024 16:03:41Influenza, high-dose, trivalent, PF 07/17/2014completRj Sage MD [address] [place] [address],[address] [place] [address], [phone], [facility]01/18/2024 16:03:41Influenza, split virus, trivalent, gxrjuvifnago48/29/2013comОлег Sage MD [address] [place] [address],[address] [place] [address], [phone], [facility]01/18/2024 16:03:41Td (adult), 5 Lf tetanus toxoid, preservative free, /01/2008comОлег Sage MD [address] [place] [address],[address] [place] [address], [phone], [facility]01/18/2024 16:03:41 Past Encounters Encounter ID Performer Location Encounter Start Date Encounter Closed Date Diagnosis/Indication Diagnosis SNOMED-CT Code Diagnosis ICD10 Code Diagnosis IMO Codes Diagnosis Note [id number] Stone Sage MD [facility] [address] [place] [address] 01/18/2024 15:50:30 01/19/2024 11:20:30 Obstruction of pelviureteric junction 57300652 N13.5 [id number] [facility] [address] [place] [address] 03/28/2024 16:36:27004/07/2024 11:48:32Obstruction of pelviureteric junction 87128455M70.5 Wdyyrbkgbcksic52734972T42.30 Essential yblfrcgccenk91551918P01 [id number] [facility] [address] [place] [address] 06/29/2024 11:10:121 11:18:35Obstruction of pelviureteric junction 14569661K40.5 [id number] Sharpe MD, PHD[facility] [address] [place] [address] 07/05/2024 12:20: 13:01:56Obstruction of pelviureteric junction 06175870W30.5 Ebnjgpmbkwollc72420815Q17.30 Essential ynikcdyjhunu68923637T73 Health Concerns Section Related Observation LastModified by Organization Detai ls LastModified Time None Recorded Concern Status LastModified by Organization Details LastModified Time None Recorded Advance Directives Directive None Recorded Payers Insurance Date Sequence Insurance Name Policy Number Policy Schaffer Covered Member ID Schaffer Member ID Guarantor Name 07/04/2024 2 MEDICARE [place]: [facility] Sun J [id number] J [id number]-[place]: [place] [employer] - MEDICARE [id number] J [id number] J PooKoait63/08/2024 [id number] J [id number] J Mitchell Notes Date Note Type Note Provider Name and Address Orga nization Details Recorded Time 01/18/2024 text/html 83 YOF HERE FOR HYDRONEPHROSIS FOLLOWUP. WENT INTO ER, FOUND TO HAVE INFECTION AND SEVERE RIGHT HYDRONEPHROSIS. SUSPECTED RT UPJ OBSTRUCTION .STENT PLACED ABOUT 3 WEEKS AGO IN [place]. ECOLI UTI. SPENT 4 DAYS IN THE HOSPITAL..NOW BACK TO BASELINE. 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 HAD A STENT PLACED IN [place] AND RESPONDED WELL TO ANTIBIOTICS.. HOWEVER, SHE HAD A SIGNIFICANT RISE IN HER BLOOD PRESSURE AND SOME DISCOMFORT. SHE WAS SCHEDULED FOR A RT RETROGRADE FOR BETTER EVALUATION OF HER OBSTRUCTION,BUT HER PROCEDURE WAS CANCELLED BECAUSE OF HER ELEVATED B.P. SHE REQUESTED STENT REMOVAL AND IT WASDONE IN THE OFFICE. SHE HAS EXPERIENCED SOME INTERMITTENT RT FLANK PAIN, BUT HER B.P. HAS IMPROVED.SHE HAD A RENAL SCAN COMPLETED AND IT SHOWED ONLY 20% RT RENAL FUNCTION WITH SUSPECTED RT UPJ OBSTRUCTION. LEFT NORMAL AND 80% FUNCTION. REVIEWED OPTIONS IN DETAIL.Stone Sage MD [address] [place] [address],[address], [place], [address], [facility] Hftmcjk9703/29/2024 12:47:0510text/html Pt is here for PVRNurse visit completed by Una Snyder RN.Una linder [facility] Yivuchd04/03/2024 14:56:5610text/html 84F with right UPJ obstruction. Here with family. Some frequency/urgency and bladder spasms with stent. Had stent removed in February due to ?HTN. 06/10/24: right stent replaced due to pain and UTI Imagin03/15/24: NM Renal scan: 21.4%R, 78.6%L1: KUB: stent in position PSH: jose alfredo hughes tubalMatthew O'Shaughnessy, MD, PHD [address] [place] [address],[address], [place], [address], [facility] Feepttq54/09/2024 18:34:27 OBGyn Episode No OBEpisode recorded.
[2025-09-24 09:40] LABS: Lactate Sepsis w/Reflex* 0.8 mmol/L (0.5-1.9)
[2025-09-24 09:43] LABS: Hematocrit* 30.0 % (33.0-51.0); Hemoglobin* 9.5 gm/dL (12.0-16.0); Immature Granulocytes Abs Auto 0.01 K/uL (0.00-0.30); Immature Granulocytes Pct Auto 0.1 %; Lymphocytes Absolute Auto 1.67 K/uL (0.90-2.90); Mean Corpuscular HGB Conc 32 gm/dL (32-36); Mean Corpuscular Hemoglobin 29 pg (26-34); Mean Corpuscular Volume 91 fL (80-100); RDW Coefficient of Variation % 15.4 % (11.5-15.5); Red Blood Count* 3.30 m/uL (4.00-5.20); White Blood Count* 7.56 K/uL (4.50-11.00)
[2025-09-24 09:44] LABS: Slide Review Reflex No
[2025-09-24 09:57] LABS: Albumin* 3.8 g/dL (3.3-5.0); Chloride* 103 mmol/L (96-114); Potassium* 4.4 mmol/L (3.6-5.1); Sodium* 133 mmol/L (135-149)
--- NOTE | 2025-09-24 09:57 | CRLHL7_ITS ---
For Patients: As a result of the Century Cures Act, medical imaging exams and procedure reports are released immediately into your electronic medical record. You may view this report before your referring provider. If you have questions, please contact your health care provider. INDICATION: Right stent removed and replaced on 09/13/25. Right lower quadrant pain. (Sic) COMPARISON: Prior studies, the most recent dated 06/10/2024. TECHNIQUE: CT of the abdomen and pelvis without intravenous contrast. Please note that all CT scans at this facility use dose modulation, iterative reconstruction, and/or weight-based dosing when appropriate to reduce radiation dose to as low as reasonably achievable. FINDINGS: The study is performed without intravenous contrast. This limits the sensitivity of the exam for the detection bowel pathology, focal lesions of the abdominopelvic viscera and vascular pathology including significant vascular stenosis, occlusion and dissection. ABDOMEN Liver: Normal contour and attenuation. No significant focal lesion. No intrahepatic biliary ductal dilatation. Gallbladder: Cholecystectomy. Normal common duct caliber. Pancreas: Normal contour and attenuation. No peripancreatic inflammatory changes. No significant focal lesion. Normal main duct caliber. Spleen: Not enlarged. No significant focal lesion. Adrenal Glands: Symmetrical adrenal glands. No significant focal lesion. Kidneys: In-situ double pigtail right ureteral stent. The proximal loop is present within the nondilated right renal pelvis and the distal loop is present within the partially decompressed bladder. Nonspecific fat stranding is seen about the proximal right ureter extending to the renal hilum with associated thickening of the anterior renal fascia consistent with nonspecific edema. Correlate clinically as to any signs or symptoms to suggest infection. Differential diagnostic considerations include the sequelae of obstructive uropathy. Otherwise normal bilateral renal attenuation. No significant focal lesion on this noncontrast study. Incidental benign 14 mm anterior right upper pole renal cortical cyst (2; 35). No urolith. No dilatation of the upper urinary tracts. Gastrointestinal tract: Large D2 segment duodenal diverticulum. Otherwise normal caliber, attenuation and wall thickness of the gastrointestinal tract. Diverticulosis of the descending and sigmoid colon without associated inflammatory changes. Unseen appendix without signs of acute appendicitis. Vascular: Chronic aortoiliac atherosclerotic mural calcification. Normal outer wall to outer wall abdominal aortic caliber. Patency and luminal caliber of the abdominopelvic arterial and venous vasculature cannot be assessed on this noncontrast study. Peritoneal Cavity/Retroperitoneum: No ascites. No adenopathy. PELVIS No bladder lesion is identified. No significant incidental findings related to the uterus or uterine adnexa. No significant ascites. No adenopathy. SKELETON AND BODY WALL No acute or significant incidental findings. Incidental findings consistent with an explanted right proximal femoral nail. Asymmetrical left hip osteoarthrosis. LOWER THORAX Small hiatus hernia. Right coronary atherosclerotic calcification. Partially included lower thoracic wall, lungs, pleural spaces and mediastinum are otherwise without significant incidental findings. IMPRESSION: 1. In-situ double pigtail right ureteral stent. The proximal loop is present within the nondilated right renal pelvis and the distal loop is present within the partially decompressed bladder. Nonspecific fat stranding is seen about the proximal right ureter extending to the renal hilum with associated thickening of the anterior renal fascia consistent with nonspecific edema. Correlate clinically as to any signs or symptoms to suggest infection. Differential diagnostic considerations include the sequelae of obstructive uropathy. 2. Additional findings as above. The study is performed without intravenous contrast. This limits the sensitivity of the exam for the detection bowel pathology, focal lesions of the abdominopelvic viscera and vascular pathology including significant vascular stenosis, occlusion and dissection. Please note that all CT scans at this facility use dose modulation, iterative reconstruction, and/or weight-based dosing when appropriate to reduce radiation dose to as low as reasonably achievable. Dictated by Gaudencio Singletary MD @ 09/24/2025 10:47:07 AM (Electronically Signed)
[2025-09-24 09:59] LABS: Blood Urea Nitrogen* 23 mg/dL (7-30); Creatinine* 1.3 mg/dL (0.5-1.5); Est. Creatinine Clearance* 27.32; Estimated Glomerular Filt Rate 40 ml/min
[2025-09-24 10:00] LABS: Alanine Aminotransferase* 15 U/L (4-35); Alkaline Phosphatase* 125 U/L (40-150); Anion Gap 7 mEq/L (7-15); Aspartate Amino Transferase* 27 U/L (12-35); Bilirubin Total* 0.6 mg/dL (0.1-1.5); Calcium* 9.2 mg/dL (8.4-10.6); Carbon Dioxide* 23 mmol/L (20-32); Glucose* 88 mg/dL (60-115); Total Protein* 7.3 g/dL (6.0-8.3)
[2025-09-24] MEDS: IPRAT-ALBUT 0.5-2.5 MG/3 ML NEB 1 NEB IH (10:12)
[2025-09-24 10:17] LABS: Procalcitonin* 0.06 ng/mL (<0.50)
--- NOTE | 2025-09-24 10:34 | ED.GENADULT ---
HPI - General Adult General Date Seen: 09/24/25 Chief complaint: Shortness of Breath/Dyspnea Stated complaint: possible UTI and Shortness of breath Time Seen by Provider: 09/24/25 08:55 History of Present Illness HPI narrative: Patient is an 85-year-old here with her daughter for evaluation of some right sided abdominal pain which has been present for the past day or 2. She recently, a couple of weeks ago, underwent pyeloplasty and stent placement at [facility]. She had a lot of abdominal pain after the procedure related to the intra-abdominal gas, but that is improved. This right-sided pain however is new. She has had chills for about a week, but has not documented a fever. She has not had any nausea vomiting. She was concerned about possible UTI. Does not have dysuria. She also notes that her left lung specifically has felt ?tight ever since the anesthesia although her daughter corrects her to say it was feeling tight even before that. She has an albuterol inhaler which was previously prescribed for this, but they are working on getting a nebulizer as well as they feel that is more effective. She is wanting a DuoNeb today to help with the lung tightness. Related Data Home Medications ?Medication ?Instructions ?Recorded ?Confirmed levothyroxine 88 mcg tablet 88 mcg PO DAILY 01/07/23 09/24/25 (Synthroid) albuterol sulfate 2.5 mg/3 mL 2.5 mg continuous nebulization Q4H 01/14/23 09/24/25 (0.083 %) solution for nebulization PRN cough budesonide-formoterol HFA 80 inhalation 09/24/25 mcg-4.5 mcg/actuation aerosol inhaler (Breyna) Previous Rx's ?Medication ?Instructions ?Recorded albuterol sulfate 90 mcg/actuation 2 puff inhalation Q4-6H PRN 04/29/25 aerosol inhaler shortness of breath or wheezing #8.5 grams ipratropium 0.5 mg-albuterol 3 mg 3 ml inhalation Q6H PRN #90 mL 04/29/25 (2.5 mg base)/3 mL nebulization soln ipratropium 0.5 mg-albuterol 3 mg 3 ml inhalation Q8H PRN #90 mL 09/24/25 (2.5 mg base)/3 mL nebulization soln Allergies Allergy/AdvReac Type Severity Reaction Status Date / Time WILLIAM Inhibitors Allergy Mild Hives Verified 09/24/25 09:05 hyoscyamine (From Levsin) Allergy Mild Hives Verified 09/24/25 09:05 apixaban (From Eliquis) AdvReac Intermediate Diarrhea Verified 09/24/25 09:05 lisinopril AdvReac Mild Cough Verified 09/24/25 09:05 metoprolol AdvReac Mild Cough Verified 09/24/25 09:05 Review of Systems Status of ROS: Reports: 10 or more systems reviewed and unremarkable except as noted in History and below [facility] Medical History Vitamin D deficiency ?E55.9 - Vitamin D deficiency, unspecified (ICD-10) Osteopenia ?M85.80 - Other specified disorders of bone density and structure, unspecified site (ICD-10) 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 - Migraine with aura, not intractable, without status migrainosus (ICD-10) Intestinal infection due to campylobacter ?A04.5 - Campylobacter enteritis (ICD-10) Hypothyroidism ?E03.9 - Hypothyroidism, unspecified (ICD-10) Hypertension ?I10 - Essential (primary) hypertension (ICD-10) Hyperlipidemia ?E78.5 - Hyperlipidemia, unspecified (ICD-10) Hiatal hernia ?K44.9 - Diaphragmatic hernia without obstruction or gangrene (ICD-10) Esophageal reflux ?K21.9 - Gastro-esophageal reflux disease without esophagitis (ICD-10) Edema ?R60.9 - Edema, unspecified (ICD-10) Duodenal ulcer, unspecified as acute or chronic, without hemorrhage or perforation ?K26.9 - Duodenal ulcer, unspecified as acute or chronic, without hemorrhage or perforation (ICD-10) Chest pain ?R07.9 - Chest pain, unspecified (ICD-10) Anticoagulation monitoring, INR range 2-3 ?Z79.01 - alf (current) use of anticoagulants (ICD-10) Surgical History History of eye surgery ?Z98.890 - Other specified postprocedural states (ICD-10) History of lumbar discectomy ?Z98.890 - Other specified postprocedural states (ICD-10) History of cholecystectomy ?Z90.49 - Acquired absence of other specified parts of digestive tract (ICD-10) History of knee replacement ?Z96.659 - Presence of unspecified artificial knee joint (ICD-10) History of surgery on lower extremity ?Z98.890 - Other specified postprocedural states (ICD-10) History of surgery on lower extremity ?Z98.890 - Other specified postprocedural states (ICD-10) History of esophagogastroduodenoscopy (EGD) ?Z98.890 - Other specified postprocedural states (ICD-10) S/P epidural steroid injection ?Z92.241 - Personal history of systemic steroid therapy (ICD-10) History of colonoscopy ?Z98.890 - Other specified postprocedural states (ICD-10) History of cataract removal with insertion of prosthetic lens ?Z98.49 - Cataract extraction status, unspecified eye (ICD-10) ?Z96.1 - Presence of intraocular lens (ICD-10) History of breast augmentation ?Z98.82 - Breast implant status (ICD-10) History of appendectomy ?Z90.49 - Acquired absence of other specified parts of digestive tract (ICD-10) Social History Smoking Status: Never smoker Do you use any of these nicotine containing products: None Second hand tobacco smoke exposure: No How often do you have a drink containing alcohol: never How often do you have six or more drinks on one occasion: Never AUDIT-C Alcohol total score: 0 Non-prescribed substance use: denies use service: No Exam Narrative: Exam Narrative: Vital signs reviewed In general, an alert, nontoxic elderly woman. She looks fatigued. Head: Normocephalic, atraumatic. Eyes: Sclera clear. Pupils equal and reactive. ENT: Mucous membranes moist. Neck: Supple without adenopathy. Heart: Regular rate and rhythm without murmur. Lungs: Clear. No increased work of breathing, crackles or wheezes. Abdomen: Abdomen is soft, minimal right-sided tenderness without rebound guarding or rigidity. Bowel sounds present. Extremities: Well perfused, pulses intact. No significant edema. Neurologic: Alert, conversant. Speech fluent, face symmetric. Moves all extremities equally. Skin: Warm, dry well perfused. Affect: Normal. Const: Vital Signs, click to edit/add: Vital Signs - 24 hr 09/24/25 08:50 Temperature 98.9 F Pulse Rate [Pulse Oximeter] 86 Respiratory Rate 18 Blood Pressure [Le ft Upper Arm] 130/75 Pulse Oximetry 97 Oxygen Delivery Me thod Room Air Course Course ED Course: Patient presents with right-sided abdominal pain on the heels a pyeloplasty and renal stent. Diagnostic considerations would include complications from her procedure such as leakage, abscess, urinoma, pyelonephritis, urinary tract infection, stent obstruction. Of course symptoms could be unrelated to the procedure and related to appendicitis, diverticulitis, bowel obstruction, etc.. Will draw some blood, a get a urine sample. Likely will do CT scan but I would like to see blood work before deciding whether to do with or without contrast. Labs are actually reassuring, white blood cell count is normal, hemoglobin is 9.5 which is at about her current baseline. Electrolytes are normal, creatinine is 1.3, also baseline. Lactate and procalcitonin are normal. LFTs unremarkable. Urinalysis shows 2-5 red cells, 2-5 white cells no bacteria. CT scan by my review does not show evidence of obstruction. Radiology report reviewed, they note that the pigtail is in the nondilated right renal pelvis distal loop is in the partially decompressed bladder. Appears to be working as intended. They do note some nonspecific fat stranding around the proximal right ureter. Her urinalysis is unremarkable, her white count, lactate, procalcitonin are all normal, and I think this is more likely to be postoperative. Reviewed all this with the patient and her daughter. She is happy to hear that things look okay. I have recommended that they touch base with the urologist since she feels she is just not felt great since the procedure. They can reviewed the CT scan with [facility] as well to see if there is anything they would like to do but at this time I recommended against antibiotics based on the overall clinical picture. Discussed reasons to return. Patient comfortable with discharge home. They do request a prescription for DuoNeb nebulizer, which I provided. Vital Signs Vital signs: Initial Vital Signs Respiratory Effort Normal 09/24/25 08:49 Respiratory Depth Normal 09/24/25 08:49 Respiratory Pattern Normal 09/24/25 08:49 Vital Signs Temperature 98.9 F 09/24/25 08:50 Pulse Rate 86 09/24/25 08:50 Respiratory Rate 18 09/24/25 08:50 Blood Pressure 130/75 09/24/25 08:50 Pulse Oximetry 97 09/24/25 08:50 Oxygen Delivery Method Room Air 09/24/25 08:50 Temperature 98.9 F 09/24/25 08:50 Pulse Rate 86 09/24/25 08:50 Respiratory Rate 18 09/24/25 08:50 Blood Pressure 130/75 09/24/25 08:50 Pulse Oximetry 97 09/24/25 08:50 Oxygen Delivery Method Room Air 09/24/25 08:50 Medications Administered Medications: Discontinued Medications Generic Name Dose Route Start Last Admin Trade Name Freq PRN Reason Stop Dose Admin Albuterol/Ipratropium 1 neb 09/24/25 09:57 09/24/25 10:12 Iprat-Albut 0.5-2.5 Mg/3 Ml Neb IH 09/24/25 09:58 1 neb ONCE ONE Administration Medical Decision Making Lab Data Labs: Lab Results 09/24/25 09/24/25 Range/Units 09:15 09:27 WBC 7.56 (4.50-11.00) K/uL RBC 3.30 L (4.00-5.20) m/uL Hgb 9.5 L (12.0-16.0) gm/dL Hct 30.0 L (33.0-51.0) % MCV 91 (80-100) fL MCH 29 (26-34) pg MCHC 32 (32-36) gm/dL RDW Coeff of Albert 15.4 (11.5-15.5) % Plt Count 419 (140-440) K/uL Neut % (Auto) 63.3 (42.0-72.0) % Lymph % (Auto) 22.1 (20-44) % [place] % (Auto) 10.3 (0.0-11.0) % Eos % (Auto) 3.4 (0.0-7.0) % Baso % (Auto) 0.8 (0.0-3.0) % Neut # (Auto) 4.78 (1.7-7.0) K/uL Lymph # (Auto) 1.67 (0.90-2.90) K/uL [place] # (Auto) 0.80 (0.00-0.90) K/UL Eos # (Auto) 0.26 (0.00-0.50) K/uL Baso # (Auto) 0.06 (0.00-0.30) K/uL Abs Immat Gran (auto) 0.01 (0.00-0.30) K/uL Imm/Tot Granulo (auto) 0.1 % Sodium 133 L (135-149) mmol/L Potassium 4.4 (3.6-5.1) mmol/L Chloride 103 (96-114) mmol/L Carbon Dioxide 23 (20-32) mmol/L Anion Gap 7 (7-15) mEq/L BUN 23 (7-30) mg/dL Creatinine 1.3 (0.5-1.5) mg/dL Estimated Creat Clear 27.32 Estimated GFR 40 ml/min Glucose 88 (60-115) mg/dL Lactate 0.8 (0.5-1.9) mmol/L Calcium 9.2 (8.4-10.6) mg/dL Total Bilirubin 0.6 (0.1-1.5) mg/dL AST 27 (12-35) U/L ALT 15 (4-35) U/L Alkaline Phosphatase 125 (40-150) U/L C-Reactive Protein 0.8 (0.5-1.0) mg/dL Total Protein 7.3 (6.0-8.3) g/dL Albumin 3.8 (3.3-5.0) g/dL Procalcitonin 0.06 (<0.50) ng/mL Urine Color Yellow (Yellow) Urine Appearance Clear (Clear) Urine pH 7.0 (5.0-8.5) Ur Specific [place] 1.020 (1.000-1.030) Urine Protein 2+ A (Negative) Urine Glucose (UA) Negative (Negative) Urine Ketones Negative (Negative) Urine Blood 2+ A (Negative) Urine Nitrite Negative (Negative) Urine Bilirubin Negative (Negative) Urine Urobilinogen 0.2 (0.2-1.0) Ur Leukocyte Esterase 1+ A (Negative) Urine RBC 2-5 A (0-2) Urine WBC 2-5 (0-5) Ur Squamous Epith Cells Few (None-Few) Urine Bacteria None (None) Imaging Data CT scan - abdomen: Attestation: I have reviewed the pertinent imaging results. Radiologist's impression: Patient: Sun Singh MR#: [id number] : 1940 Acct:[id number] Loc: ED Service Date: 09/24/[address]: Ordering Physician: Marcia Driver M.D. Date of Service: 09/24/25 Procedure(s): CT abdomen pelvis wo con Accession Number(s): [id number] cc: Marcia Driver M.D.; MEKA RUCKER D.O.~ For Patients: As a result of the Cures Act, medical imaging exams and procedure reports are released immediately into your electronic medical record. You may view this report before your referring provider. If you have questions, please contact your health care provider. INDICATION: Right stent removed and replaced on 09/13/25. Right lower quadrant pain. (Sic) COMPARISON: Prior studies, the most recent dated 06/10/2024. TECHNIQUE: CT of the abdomen and pelvis without intravenous contrast. Please note that all CT scans at this facility use dose modulation, iterative reconstruction, and/or weight-based dosing when appropriate to reduce radiation dose to as low as reasonably achievable. FINDINGS: The study is performed without intravenous contrast. This limits the sensitivity of the exam for the detection bowel pathology, focal lesions of the abdominopelvic viscera and vascular pathology including significant vascular stenosis, occlusion and dissection. ABDOMEN Liver: Normal contour and attenuation. No significant focal lesion. No intrahepatic biliary ductal dilatation. Gallbladder: Cholecystectomy. Normal common duct caliber. Pancreas: Normal contour and attenuation. No peripancreatic inflammatory changes. No significant focal lesion. Normal main duct caliber. Spleen: Not enlarged. No significant focal lesion. Adrenal Glands: Symmetrical adrenal glands. No significant focal lesion. Kidneys: In-situ double pigtail right ureteral stent. The proximal loop is present within the nondilated right renal pelvis and the distal loop is present within the partially decompressed bladder. Nonspecific fat stranding is seen about the proximal right ureter extending to the renal hilum with associated thickening of the anterior renal fascia consistent with nonspecific edema. Correlate clinically as to any signs or symptoms to suggest infection. Differential diagnostic considerations include the sequelae of obstructive uropathy. Otherwise normal bilateral renal attenuation. No significant focal lesion on this noncontrast study. Incidental benign 14 mm anterior right upper pole renal cortical cyst (2; 35). No urolith. No dilatation of the upper urinary tracts. Gastrointestinal tract: Large D2 segment duodenal diverticulum. Otherwise normal caliber, attenuation and wall thickness of the gastrointestinal tract. Diverticulosis of the descending and sigmoid colon without associated inflammatory changes. Unseen appendix without signs of acute appendicitis. Vascular: Chronic aortoiliac atherosclerotic mural calcification. Normal outer wall to outer wall abdominal aortic caliber. Patency and luminal caliber of the abdominopelvic arterial and venous vasculature cannot be assessed on this noncontrast study. Peritoneal Cavity/Retroperitoneum: No ascites. No adenopathy. PELVIS No bladder lesion is identified. No significant incidental findings related to the uterus or uterine adnexa. No significant ascites. No adenopathy. SKELETON AND BODY WALL No acute or significant incidental findings. Incidental findings consistent with an explanted right proximal femoral nail. Asymmetrical left hip osteoarthrosis. LOWER THORAX Small hiatus hernia. Right coronary atherosclerotic calcification. Partially included lower thoracic wall, lungs, pleural spaces and mediastinum are otherwise without significant incidental findings. IMPRESSION: 1. In-situ double pigtail right ureteral stent. The proximal loop is present within the nondilated right renal pelvis and the distal loop is present within the partially decompressed bladder. Nonspecific fat stranding is seen about the proximal right ureter extending to the renal hilum with associated thickening of the anterior renal fascia consistent with nonspecific edema. Correlate clinically as to any signs or symptoms to suggest infection. Differential diagnostic considerations include the sequelae of obstructive uropathy. 2. Additional findings as above. The study is performed without intravenous contrast. This limits the sensitivity of the exam for the detection bowel pathology, focal lesions of the abdominopelvic viscera and vascular pathology including significant vascular stenosis, occlusion and dissection. Please note that all CT scans at this facility use dose modulation, iterative reconstruction, and/or weight-based dosing when appropriate to reduce radiation dose to as low as reasonably achievable. Dictated by Gaudencio Singletary MD @ 09/24/2025 10:47:07 AM Discharge Plan Discharge Clinical Impression: Postoperative abdominal pain Patient Disposition: Home, Self-Care Condition: Stable Instructions: Abdominal Pain (ED) Additional Instructions: Touch base with [facility] today, let them know that you are still having some trouble after the procedure. CT report attached so that you can run that by them as well. If you are feeling significantly worse, have fevers, vomiting etcetera, return to the emergency department. Otherwise, follow-up with primary care in the next week for recheck. Today, your urine and blood work do not suggest significant infection. CT scan shows that the stent is draining properly. Prescriptions: New ipratropium-albuterol 0.5 mg-3 mg(2.5 mg base)/3 mL solution for nebulization 3 ml inhalation Q8H PRNQty: 90 0RF No Action albuterol sulfate 2.5 mg /3 mL (0.083 %) solution for nebulization 2.5 mg continuous nebulization Q4H PRN (Reason: cough) budesonide-formoterol [Breyna] 80-4.5 mcg/actuation HFA aerosol inhaler inhalation levothyroxine [Synthroid] 88 mcg tablet 88 mcg PO DAILY albuterol sulfate 90 mcg/actuation HFA aerosol inhaler 2 puff inhalation Q4-6H PRN (Reason: shortness of breath or wheezing) Qty: 8.5 1RF ipratropium-albuterol 0.5 mg-3 mg(2.5 mg base)/3 mL solution for nebulization 3 ml inhalation Q6H PRNQty: 90 1RF Patient Comments: old prescription and would like more Follow Up/Referrals: MEKA RUCKER DO [Primary Care Provider, Family Practice] Stand Alone Forms: [facility] Info Instructions
== END 2025-09-24 11:36 | disposition home or self-care (01) ==
PROVIDERS: Emergency Provider Emergency Medicine; PCP Student in an Organized Health Care Education/Training Program
DX: G89.18 Other acute postprocedural pain (principal); R10.9 Unspecified abdominal pain
CPT/HCPCS: 36415; 74176; 80053; 81001; 81003; 83605; 84145; 85025; 86140; 87086; 99284

== ENCOUNTER 2025-09-26 14:36 | Emergency (ER) | payer MEDICARE, BC, SELFPAY ==
--- OUTSIDE RECORDS SUMMARY | 2025-01-04 04:20 | XMS_ITS | Continuity of Care Document ---
Author Organization [facility] Address [facility] [address] [place] [address] Phone Care Team Providers Care Enterprise Application Analyst Name Role Phone Toni Riggins MD Unavailable Unavailable Allergies, Adverse Reactions, Alerts Substance Reaction Status Criticality cat dander Active No Information ragweed pollen Active No Informatio n house dust Active No Information Medications Medication Instructions Dosage Effective Dates (start - stop) Status Comments Synthroid 25 mcg tablet take 1 tablet by oral route every day 25 MCG - Active Procedures Procedure Date Established Pt Intermediate Exam 2024 Ophthalmoscopy; Optic Nerve Of Macula Ap OCT Retina Unilateral Or Bilateral Established Pt Comprehensive Exam Ophthalmoscopy; Optic Nerve Of Macula Ja OCT Retina Unilateral Or Bilateral New Patient Comprehensive Exam Ophthalmoscopy; Optic Nerve Of Macula Fe OCT Retina Unilateral Or Bilateral Established Pt Intermediate Exam 2012 Ophthalmoscopy Extended Subsequent Ophthalmoscopy Extended Subsequent OCT Retina Unilateral Or Bilateral New Patient Comprehensive Exam 13 Ophthalmoscopy Extended Initial 013 Ophthalmoscopy Extended Initial 013 Advance Directives Directive Yes / No Effective Date File Name No Information Encounters Encounter Description Practice Location Reason(s) For Visit Diagnoses Date Provider Providers Copied on Encounter [facility], [facility] [address], [place], [id number], [place] tel:[phone] [facility] macular degeneration (chief complaint) Nonexudative age-related macular degeneration, bilateral, early dry stageVitreous degeneration, bilateralPseud ophakia of both eyesIrregular surface of cornea Dec- 0- 5 Vaishnavi Toni. [address], [place], [id number] , [place]. tel:[phone] Referring Provider: Topher Paredes, [address] [place] [address] [address], [place], [address]. tel:[phone] [address], [id number], [place] tel:[phone] [facility] macular degeneration (chief complaint) PVD (posterior vitreous detachment), both eyesPseudophak ia of both eyesNexdtve age-related mclr degn, bilateral, intermed dry stageIrregular surface of cornea Sep- 2- 5 Vaishnavi Toni. [address], [place], [id number] , [place]. tel:[phone] Referring Provider: Topher Paredes, [address] [place] [address] [address], [place], [address]. tel:[phone] New Patient Comprehensive Exam [facility] [address] [place] [address], [id number], [place] tel:[phone] [facility] retinal evaluation (chief complaint) Nonexudative age-related macular degeneration, bilateral, early dry stageVitreous degeneration, bilateralPavin g stone retinal degeneration of both eyes 0 2 Vaishnavi Toni. [address], [place], [id number] , [place]. tel:[phone] Referring Provider: Topher Paredes, [address] [place] [address] [address], [place], [address]. tel:[phone] [facility] [address] [place] [address], [id number], [place] tel:[phone] [facility] No Information 3 Patti Medina. [address], [place], [id number] , [place]. tel:[phone] Referring Provider: Topher Paredes, [facility] [address], [place], [address]. tel:[phone] New Patient Comprehensive Exam [facility], [facility] [address], [place], [id number], [place] tel:[phone] [facility] No Information 3 Patti Medina. [address], [place], [id number] , [place]. tel:[phone] Referring Provider: Topher Paredes, [facility] [address], [place], [address]. tel:[phone] Family History Family Member Type Diagnosis Age At Onset No Information Payers Payer name Insurance type Covered democrat ID Authorbria sherry(s) Medicare Part B MB [id number] [facility] PPO Prime Or Supplement CI [id number] Social History Type Description Quantity Date Captured Comments Alcohol Use Details No Caffeine Use Details coffee 4 cups per day Tobacco Use Status Current non-smoker Smoking Status Never smoker Non-Smoking Tobacco Use Details : No Details Available : No Details Available [id number] SexFemale Chief Complaint And Reason For Visit From encounter dated '01/04/2025 10:20'. macular degeneration (chief complaint). Description: The 84 year old female presents for evaluationand management of macular degeneration in both eyes. Patient states that vision is doing ok. Patient feels her vision is fading and she needs a bright light to read. No new flashes or floaters. No pain or discomfort. No increase in blurry vision. No increase to light sensitivity. Reason For Referral Reason For Referral No Information Plan Of Treatment Date Type Action Status Goal Tobacco cessation counseling completed History Of Present Illness Encounter Date Complaint History Of Prese nt Illness macular degeneration The 84 year old female presents for evaluation and management of macular degeneration in both eyes. Patient states that vision is doing ok. Patient feels her vision is fading and she needs a bright light to read. No new flashes or floaters. No pain or discomfort. No increase in blurry vision. No increase to light sensitivity. macular degeneration The 84 year old female presents for evaluation and management of macular degeneration in both eyes. States she thinks her vision is dimming, seems like there is never enough light. Vision is more cloudy. No new flashes or floaters. retinal evaluation The 81 year o ld female presents for retinal evaluation in both eyes. Patient states that she has been having ocular headaches but without the pain 3/4 times a week for the past year. The first one was in 2015 but she had only had them occasionally until recently. She states she sees a visual disturbance that looks like lightning strikes when it is beginning and the center of her vision will be dark/ blocked out. These episodes last for about 20 minuets at a time. She mentions she has been struggling with hypertension since recovering from Covid a month ago. She has undergone other medical testing and had her arteries checked to see if that was the source. She denies seeing floaters but does describe more of a cloud that will come across. Patient does not experience any flashes of light. Functional Status Date Functional Assessmen t No Information Instructions Date Instruction Additional Infor gina Impression/Plan Related to Nonex udative age-related macular degeneration, bilateral, early dry stage Impression/Plan Related to Vitre ous degeneration, bilateral Impression/Plan Related to Pseud ophakia of both eyes Impression/Plan Related to Irreg ular surface of cornea Impression/Plan Related to Nexdt ve age-related mclr degn, bilateral, intermed dry stage Impression/Plan Related to PVD ( posterior vitreous detachment), both eyes Impression/Plan Related to Pseud ophakia of both eyes Impression/Plan Related to Irreg ular surface of cornea Return in 6 months w deon Donis MD for follow up exam and OCT (Macula). 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
--- OUTSIDE RECORDS SUMMARY | 2025-01-27 03:00 | XMS_ITS ---
Author Organization [facility] Address [address] [place] [address] Care Team Providers Care Firer Locomotive Crane Name Role Phone Lars EASTON [place] Unavailable [phone] Eva Agarwal Unavailable Unavailab le Migration, Provider Unavailable Unavailable REASON FOR VISIT EMR-Breezy Encounters Encounter Location Date Provider Diagnosis [facility] [address] [place] [address] 01/27/2025 Provider Migration Plan Of Treatment Medication [...] Notes * Sun ALEMANOB:06/1940 (85 yo F)Acc No.[id number]:01/27/2025 Patient:?LOVE Sun Tidwell :1940???Age:84 Y???Sex:FemalePhone:Address:[address] [place] [address], [address] * Refills Stop amLODIPine Besylate Tablet, 10 [...]
--- OUTSIDE RECORDS SUMMARY | 2025-01-28 03:00 | XMS_ITS ---
Author Organization [facility] Address [address] [place] [address] Care Team Providers Care Cisco Engineer Name Role Phone Lars EASTON, [place] Unavailable [phone] Eva Agarwal Unavailable Unavailab le Migration, Provider Unavailable Unavailable REASON FOR VISIT EMR-Breezy Medications Medication SIG (Take, Route, Frequency, Duration) Notes Start Date End Date Status Synthroid 88 MCG Tablet Oral once a day 12/04/2022ctiveOndansetron 4 MG Tablet BmrfsmeuymahdgSlhg69/09/2023ctive Sotalol HCl 80 MG TabletTake 0.5 tablets (40 mg total) by mouth every 12 (twelve) hours Oral once a day12/28/2022ctiveOmeprazole 20 MG Tablet Delayed Release DisintegratingOral as yqbcqh3912/11/2019ActiveLosartan Potassium 25 MG TabletOral once a day12/11/2019ActivetraMADol HCl 50 MG TohsbpNdwr95/15/2023 ActiveXarelto 20 MG MtcxibLldi09/27/2023ctivehydroCHLOROthiazide 12.5 MG Tablet Oral as uyeuug3712/01/2019Active Social History Social History Additional DetailsCategorySocial InfoOptionsDetailsMigrated Social History Migrated Social History caffeine use, does not live alone, good exercise habits, no exercise habits, no physical disability, no tobacco use, not a current smoker, not using alcohol, not using drugs, smoking status : Never smoker Encounters Encounter Location Date Provider Diagnosis [facility] [address] [place] [address] 01/28/2025 Provider Migration Plan Of Treatment No Information Progress Notes * Sun ALEMANOB:07/ 06/1940 (85 yo F)Acc No.[id number]:01/28/2025 Patient:Sun RESTREPO :1940???Age:84 Y???Sex:FemalePhone:Address:[address] [place] [address], [address] Subjective: * Chief Complaints: * E MR-Breezy * Medical History: Advance healthcare directive on file, history of essential hypertension, living will on file, * Family History: M igrated Family History: Father- shot, and heart attack ~Mother- stomach Cancer. * Social History: ???Migrated Social History:?Migrated Social History: caffeine use, does not live alone, good exercise habits, no exercise habits, no physical disability, no tobacco use, not a current smoker, not using alcohol, not using drugs, smoking status : Never smoker. * Medications: T [...] Xarelto 20 MG Tablet Oral * * Date:?
--- OUTSIDE RECORDS SUMMARY | 2025-08-27 13:15 | XMS_ITS | Encounter Summary ---
Author Organization [facility] Address [address] [place] [address] Care Team Providers Care Tank Builder Supervisor Name Role Phone Elsewhere, Pcp Primary Care Provider Unavailabl e Reason for Visit * ReasonOnset DateCommentsBlood Mfijxnek36/01/2025 Encounter Details DateTypeDepartmentCare Team (Latest Contact Info)Fqmavcziwno10/01/2025 1:15 PM CSTClinical Communication Virtual Review in [place], [place] [address] [place] [address] Blood Pressure Social History Tobacco UseTypesPacks/DayYears UsedDateSmoking Tobacco: NeverSmokeless Tobacco: Never Tobacco Cessation:Counseling Given: Not Answered Alcohol UseStandard Drinks/WeekCommentsNever0 (1 standard drink = 0.6 oz pure alcohol)[facility] UtilitiesAnswerDate RecordedIn the past 12 months has the [employer], gas, oil, or water [employer] threatened to shut off services in your [...] have received?Associate degree: occupational, technical, or vocational vzcyhpa9805/27/2020CommentsNoSex and Gender InformationValue Date RecordedSex Assigned at OkkunOywupq71/26/2025 10:16 AM CDTLegal SexFemale 10/29/2016 2:16 PM CSTGender RwhvdgxtAsdzet29/26/2025 10:16 AM CDTSexual BeutryuwahaKjxrrouz89/26/2025 10:16 AM CDTdocumented as of this encounter Plan of Treatment DateTypeDepartmentCare Team (Latest Contact Info)Eyucyjdlifb96/03/2026 8:00 AM CSTProcedure visit Department of Urology in [place], [place] [address] [place] [phone] Rupert Loving M.D. [address] [place] [address] documented as of this encounter Visit Diagnoses Not on filedocumented in this encounter Care Teams Team MemberRelationshipSpecialtyStart DateEnd Date Elsewhere, Pcp PCP - GeneralInternal Medicine04/18/25documented as of this encounter
--- OUTSIDE RECORDS SUMMARY | 2025-08-30 08:43 | XMS_ITS | Encounter Summary ---
Author Organization [facility] Address [address] [place] [address] Care Team Providers Care Plastic Worker Name Role Phone Elsewhere, Pcp Primary Care Provider Unavailabl e Encounter Details DateTypeDepartmentCare Team (Latest Contact Info)Ocpxgyubkxk43/04/2025 8:43 AM MERCHANDISE FLOW MANAGER - 08/30/2025 9:41 AM CSTHospital Encounter Department of Laboratory Medicine and Pathology, [facility], in [place], [place] [address] [place] [address] Vicki Rubio M.D., M.S. [address] [place] [phone] Hydronephrosis Discharge Disposition: Home or Self Care Social History Tobacco UseTypesPacks/DayYears UsedDateSmoking Tobacco: NeverSmokeless Tobacco: NeverAlcohol UseStandard Drinks/WeekCommentsNever0 (1 standard drink = 0.6 oz pure alcohol)[facility] UtilitiesAnswerDate RecordedIn the past 12 months has the [employer], gas, oil, or water [employer] threatened to shut off services in your home?No03/06/2025Humiliation, Afraid, Rape, and Kick questionnaireAnswerDate RecordedWithin the last year, have you been afraid of your partner or ex-partner?No03/06/2025Within the last year, have you been humiliated or emotionally abused in other ways by your partner or ex-partner?No03/06/2025 Within the last year, have you been kicked, hit, slapped, or otherwise physically hurt by your partner or ex-partner?No03/06/2025Within the last year, have you been raped or forced to have any kind of sexual activity by your part ner or ex-partner?No03/06/2025Hunger Vital SignAnswerDate RecordedWithin the past 12 months, you worried that your food would run out before you got the money to buymore.Never true03/06/2025Within the past 12 months, the food you bought just didn't last and you didn't have money to get more.Never true 03/06/2025PRAPARE - TransportationAnswerDate RecordedIn the past 12 months, has lack of transportation kept you from medical appointments or from getting medications?No03/06/2025In the past 12 months, has lack of transportation kept you from meetings, work, or from getting things needed for daily living?No 03/06/2025Housing StabilityAnswerDate RecordedWhat is your living situation today?I have a steady place to live03/06/2025EducationAnswerDate RecordedWhat is the highest level of school you have completed or the highest degree you have received?Associate degree: occupational, technical, or vocational program 05/27/2020CommentsNoSex and Gender InformationValueDate RecordedSex Assigned at RwciyPwpsju34/26/2025 10:16 AM CDTLegal KpbTaqwcv47/02/2017 2:16 PM CSTGender VwwfpythLwqgdu42/26/2025 10:16 AM CDTSexual OrientationStraight 02/19/2025 10:16 AM CDTdocumented as of this encounter Medications at Time of Discharge MedicationSigDispense QuantityRefillsLast FilledStart DateEnd Date albuterol 90 mcg/actuation inhaler Inhale 2 puffs every 4 (four) hours as needed for shortness of breath or wheezing.04/30/2025 levothyroxine (Synthroid) 88 mcg tablet Take 88 mcg by mouth daily before morning meal.11/22/2022 acetaminophen (TylenoL 8 Hr) 650 mg ER tablet Take 1,300 mg by mouth every 8 (eight) hours. acetaminophen (TylenoL) 500 mg tablet Take 2 tablets (1,000 mg total) by mouth every 6 (six) hours as needed for pain. 09/14/2025 Breyna 80-4.5 mcg/actuation inhaler Inhale 2 puffs 2 (two) times a day.09/07/2025 dabigatran etexilate (Pradaxa) 75 mg capsule Take 1 capsule (75 mg total) by mouth 2 (two) times a day. 60 capsule 11003/07/2025 DME Urological supplies Indications:Obstruction Kidney,HydronephrosisDME Order 1 Unspecified hydrocortisone 1 % cream Apply 1 Application topically 2 (two) times a day. Apply to right leg. 30 g 04/19/2025 8:37 AM CDT04/18/2025 ipratropium-albuteroL (DuoNeb) 0.5-2.5 mg/3 mL nebulizer solution Inhale 3 mL by nebulization 4 (four) times a day as needed.04/30/2025 LORazepam (Ativan) 0.5 mg tablet Take 0.5 mg by mouth every 6 (six) hours as needed.08/08/2025 magnesium oxide (Mag-Ox) 400 mg (241.3 mg magnesium) tablet Take 400 mg by mouth at bedtime. oxyCODONE (Roxicodone) 5 mg immediate release tablet Indications:Acute PainTake 1 tablet (5 mg total) by mouth every 6 (six) hours as needed for severe pain or score 7-10 of 10 Indication: Acute Pain. 8 tablet 09/14/2025 12:37 PM CST09/14/2025 polyethylene glycol (Miralax) 17 gram powder packet Take 1 packet (17 g total) by mouth daily. Dissolve each 17 g dose in 240 mLs (8 ounces) of beverage. 30 packet 09/14/2025 polyethylene glycol 400 0.25 % drops,gel Administer 1-2 drops into affected eye(s) every 6 (six) hours as needed (Dry or irritated eyes). simethicone 125 mg chewable tablet Chew 1 tablet (125 mg total) 4 (four) times a day as needed for flatulence. 09/14/2025 sulfamethoxazole-trimethoprim (Bactrim DS) 800-160 mg per tablet Indications:Hydronephrosis With Ureteropelvic Junction ObstructionTake 1 tablet by mouth 2 (two) times a day for 3 days. Start taking day before stent removal appointment 6 tablet 09/14/2025 12:37 PM CST tamsulosin (Flomax) 0.4 mg 24 hr capsule Take 1 capsule (0.4 mg total) by mouth daily as needed (for flank pain). 60 capsule 09/14/2025 12:37 PM CST09/14/2025 tiZANidine (Zanaflex) 2 mg tablet Take 2 mg by mouth every 6 (six) hours as needed.08/24/2025 trospium (Sanctura) 20 mg tablet Take 1 tablet (20 mg total) by mouth 2 (two) times a day as needed (for Bladder spasms). 60 tablet 12:37 PM CST09/14/2025 zinc sulfate (Zinc-220) 220 (50 mg zinc) capsule 220 mg daily. albuterol 2.5 mg /3 mL nebulizer solution Inhale 2.5 mg every 4 (four) hours as needed. cyclobenzaprine (FlexeriL) 10 mg tablet Take 10 mg by mouth at bedtime as needed. oxyCODONE (Roxicodone) 5 mg immediate release tablet Take 5 mg by mouth every 4 (four) hours as needed. sulfamethoxazole-trimethoprim (Bactrim DS) 800-160 mg per tablet Indications:Obstruction Kidney,Chronic Kidney Disease (CKD), Stage 3b Glomerular Filtration Rate (GFR) 30 To 44 (HCC),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Take 1 tablet by mouth as directed. Take 1 tablet 1-2 hours prior to nephrostomy tube exchanges. 6 tablet 10:14 AM CDT06/04/2025documented as of this encounter Plan of Treatment DateTypeDepartmentCare Team (Latest Contact Info)Hnnpqhtlmni93/03/2026 8:00 AM CSTProcedure visit Department of Urology in [place], [place] [address] [place] [address] Rupert Loving M.D. [address] [place] [address] documented as of this encounter Procedures Procedure NamePriorityDate/TimeAssociated DiagnosisCommentsCBC WITHOUT DIFFERENTIAL, EVlvalyf84/04/2025 9:00 AM MERCHANDISE FLOW MANAGER Hydronephrosis TYPE AND MSHSHTAaqnkdb58/04/2025 9:00 AM MERCHANDISE FLOW MANAGER Hydronephrosis BASIC METABOLIC PANEL, S/MKeqlrqu89/04/2025 9:00 AM MERCHANDISE FLOW MANAGER Hydronephrosis documented in this encounter Results * Type and Screen (with Reflex Antibody ID) (08/30/2025 9:00 AM MERCHANDISE FLOW MANAGER)Component ValueRef RangeTest MethodAnalysis TimePerformed AtPathologist SignatureABORhO PosNot pdnfddnqui78/04/2025 9:35 AM CSTETRMAntibody ScreenNegativeNegative 08/30/2025 9:49 AM CSTETRMType & Screen Zneanwwbju50/07/2025 23:5908/30/2025 9:35 AM CSTETRMTesting Location[place] DEFAULT 08/30/2025 9:09 AM CSTETRMSpecimen (Source)Anatomical Location / Laterality Collection Method / VolumeCollection TimeReceived TimeBlood (Blood, Venous) 08/30/2025 9:00 AM CST08/30/2025 9:09 AM MERCHANDISE FLOW MANAGER Narrative Authorizing ProviderResult TypeResult StatusCharlotte Lizzy Rubio M.D., M.S.LAB BLOOD BANK TEST ORDERABLESFinal ResultPerforming OrganizationAddress City/State/ZIP CodePhone Number [facility] [address] [place] [address], [facility] ETRM [facility] [address] [place] [address] * (ABNORMAL) Basic Metabolic Panel (08/30/2025 9:00 AM MERCHANDISE FLOW MANAGER)ComponentValueRef RangeTest MethodAnalysis TimePerformed AtPathologist SignaturePotassium, S5.4 (H)3.6 - 5.2 mmol/L110/31/2024 10:14 AM CSTDTLSodium, L833277 - 145 mmol/L 08/30/2025 10:14 AM CSTDTLChloride, G46420 - 107 mmol/L110/31/2024 10:14 AM MERCHANDISE FLOW MANAGER DTLBicarbonate, S2422 - 29 mmol/L110/31/2024 10:14 AM CSTDTLAnion Gap97 - 15 08/30/2025 10:14 AM CSTDTLBUN (Blood Urea Nitrogen), S26(H)6 - 21 mg/dL 08/30/2025 10:14 AM CSTDTLCreatinine1.56(H)0.59 - 1.04 mg/dL08/30/2025 10:14 AM CSTDTLEstimated GFR (eGFR)32(L)>=60 mL/min/BSA08/30/2025 10:14 AM CSTDTL Comment: Estimated GFR calculated using the 2020 CKD_EPI creatinine equation. Calcium, Total, S9.28.8 - 10.2 mg/dL08/30/2025 10:14 AM CSTDTLGlucose, S9370 - 140 mg/dL08/30/2025 10:14 AM CSTDTLSpecimen (Source)Anatomical Location / LateralityCollection Method / VolumeCollection TimeReceived TimeBlood (Blood, Venous)08/30/2025 9:00 AM CST08/30/2025 9:57 AM MERCHANDISE FLOW MANAGER Narrative Authorizing ProviderResult TypeResult StatusCharlotte Lizzy Rubio M.D., M.S.LAB BLOOD ADD-ONFinal ResultPerforming OrganizationAddressCity/State/ZIP CodePhone Number [facility] [address] [place] [address], [facility] DTL [facility] [address] [place] [address] * (ABNORMAL) CBC without Differential (08/30/2025 9:00 AM MERCHANDISE FLOW MANAGER)ComponentValueRef RangeTest MethodAnalysis TimePerformed AtPathologist VadtjvnthZkzrwlrxtt52.4 (L)11.6 - 15.0 g/dL08/30/2025 9:55 AM AGLIWDWsdxcnwigq44.6(L)35.5 - 44.9 % 08/30/2025 9:55 AM CSTDTLErythrocytes3.57(L)3.92 - 5.13 x10(12)/L12/12/2024 9:55 AM QJEUDJUPB34.378.2 - 97.9 fL08/30/2025 9:55 AM CSTDTLRBC Distrib Width 14.612.2 - 16.1 %08/30/2025 9:55 AM CSTDTLPlatelet Vmrvv185(H)157 - 371 x10(9)/L110/31/2024 9:55 AM CSTDTLLeukocytes7.53.4 - 9.6 x10(9)/L110/31/2024 9:55 AM CSTDTLSpecimen (Source)Anatomical Location / LateralityCollection Method / VolumeCollection TimeReceived TimeBlood (Blood, Venous)08/30/2025 9:00 AM CST08/30/2025 9:21 AM MERCHANDISE FLOW MANAGER Narrative Authorizing ProviderResult TypeResult StatusCharestefany Rubio M.D., M.S.LAB BLOOD ADD-ONFinal ResultPerforming OrganizationAddressCity/State/ZIP CodePhone Number [facility] [address] [place] [address], [facility] DTL [facility] [address] [place] [address] documented in this encounter Visit Diagnoses Diagnosis Hydronephrosis documented in this encounter Care Teams Team MemberRelationshipSpecialtyStart DateEnd Date Elsewhere, Pcp PCP - GeneralInternal Medicine04/18/25documented as of this encounter
--- OUTSIDE RECORDS SUMMARY | 2025-08-30 08:43 | XMS_ITS | Encounter Summary ---
Author Organization [facility] Address [address] [place] [address] Care Team Providers Care Editor Managing Director Name Role Phone Elsewhere, Pcp Primary Care Provider Unavailabl e Encounter Details DateTypeDepartmentCare Team (Latest Contact Info)Eawphdspids90/04/2025 8:43 AM BARBERING INSTRUCTOR - 08/30/2025 9:41 AM CSTHospital Encounter Department of Laboratory Medicine and Pathology, [facility], in [place], [place] [address] [place] [address] Vicki Rubio M.D., M.S. [address] [place] [phone] Hydronephrosis Discharge Disposition: Home or Self Care Social History Tobacco UseTypesPacks/DayYears UsedDateSmoking Tobacco: NeverSmokeless Tobacco: NeverAlcohol UseStandard Drinks/WeekCommentsNever0 (1 standard drink = 0.6 oz pure alcohol)[facility] UtilitiesAnswerDate RecordedIn the past 12 months has the [employer], gas, oil, or water [employer] threatened to shut off services in your [...] 05/27/2020CommentsNoSex and Gender InformationValueDate RecordedSex Assigned at OuuvuSrozer82/26/2025 10:16 AM CDTLegal ErxRfgymr86/02/2017 2:16 PM CSTGender HebmnkiqDozehf75/26/2025 10:16 AM CDTSexual OrientationStraight 02/19/2025 10:16 AM [...] Plan of Treatment DateTypeDepartmentCare Team (Latest Contact Info)Zqaaeuzukbh33/03/2026 8:00 AM CSTProcedure visit Department of Urology in [place], [place] [address] [place] [address] Rupert Loving M.D. [address] [place] [address] documented as of this encounter Procedures Procedure NamePriorityDate/TimeAssociated DiagnosisCommentsBACTERIAL CULTURE, AEROBIC + SUSC, QCHWYKabflpu63/04/2025 9:09 AM BARBERING INSTRUCTOR Hydronephrosis documented in this encounter Results * (ABNORMAL) Bacterial Culture, Aerobic + Susceptibility, Urine (08/30/2025 9:09 AM BARBERING INSTRUCTOR)ComponentValueRef RangeTest MethodAnalysis TimePerformed AtPathologist SignatureUrine CultureENTEROBACTER CLOACAE COMPLEX >100,000 cfu/mL (A)09/02/2025 10:30 AM CSTDTLSpecimen (Source)Anatomical Location / Laterality Collection Method / VolumeCollection TimeReceived TimeUrine (Urine, Midstream) 08/30/2025 9:09 AM CST08/30/2025 10:55 AM CSTComment:Specimen Source Site: Urine Narrative OrganismAntibioticMethodSusceptibilityEnterobacter cloacae complexAmpicillin SUSCEPTIBILITY, ARA (MCG/ML) mcg/mL: Resistant Enterobacter cloacae complexAmpicillin + SulbactamSUSCEPTIBILITY, ARA (MCG/ML) mcg/mL: Resistant Enterobacter cloacae complexMeropenemSUSCEPTIBILITY, ARA (MCG/ML) <=0.12 mcg/mL: Susceptible Enterobacter cloacae complexErtapenemSUSCEPTIBILITY, ARA (MCG/ML) <=0.25 mcg/mL: Susceptible Enterobacter cloacae complexPiperacillin + TazobactamSUSCEPTIBILITY, ARA (MCG/ML) <=8/4 mcg/mL: Susceptible Enterobacter cloacae complexCiprofloxacinSUSCEPTIBILITY, ARA (MCG/ML) <=0.25 mcg/mL: Susceptible Enterobacter cloacae complexLevofloxacinSUSCEPTIBILITY, ARA (MCG/ML) <=0.5 mcg/mL: Susceptible Enterobacter cloacae complexCefazolinSUSCEPTIBILITY, ARA (MCG/ML) mcg/mL: Resistant Enterobacter cloacae complexCeftriaxoneSUSCEPTIBILITY, ARA (MCG/ML) 32 mcg/mL: Resistant Enterobacter cloacae complexCeftazidimeSUSCEPTIBILITY, ARA (MCG/ML) 16 mcg/mL: Resistant Enterobacter cloacae complexCefepimeSUSCEPTIBILITY, ARA (MCG/ML) <=2 mcg/mL: Susceptible Enterobacter cloacae complexAmikacinSUSCEPTIBILITY, ARA (MCG/ML) <=4 mcg/mL: Susceptible Enterobacter cloacae complexGentamicinSUSCEPTIBILITY, ARA (MCG/ML) <=1 mcg/mL: Susceptible Enterobacter cloacae complexTobramycinSUSCEPTIBILITY, ARA (MCG/ML) <=1 mcg/mL: Susceptible Enterobacter cloacae complexAztreonamSUSCEPTIBILITY, ARA (MCG/ML) 16 mcg/mL: Resistant Enterobacter cloacae complexTrimethoprim + SulfamethoxazoleSUSCEPTIBILITY, ARA (MCG/ML) <=0.5/9.5 mcg/mL: Susceptible Enterobacter cloacae complexNitrofurantoinSUSCEPTIBILITY, ARA (MCG/ML) >64 mcg/mL: Resistant Authorizing ProviderResult TypeResult StatusCharestefany Rubio M.D., M.S.LAB MICROBIOLOGY - GENERAL ORDERABLESFinal ResultPerforming OrganizationAddress City/State/ZIP CodePhone Number [facility], [place] [address] [place] [address], [facility] DTL [facility] [address] [place] [address] documented in this encounter Visit Diagnoses Diagnosis Hydronephrosis documented in this encounter Care Teams Team MemberRelationshipSpecialtyStart DateEnd Date Elsewhere, Pcp PCP - GeneralInternal Medicine04/18/25documented as of this encounter
--- OUTSIDE RECORDS SUMMARY | 2025-08-30 09:43 | XMS_ITS | Encounter Summary ---
Author Organization [facility] Address [address] [place] [address] Care Team Providers Care Retail Merchandiser Name Role Phone Elsewhere, Pcp Primary Care Provider Unavailabl e Reason for Referral * Outpatient (Routine) - ClosedSpecialtyDiagnoses / ProceduresReferred By ContactReferred To ContactRadiology Diagnoses Hydronephrosis Procedures IR Nephrostomy Tube Exchange Right Vicki Rubio M.D., M.S. [address] [place] [address] Phone: tel: fax: [facility] Referral IDStatusReasonStart DateExpiration DateVisits RequestedVisits [id number]/[id number]/[id number] RWATER TRAPPER Reason for Visit * Outpatient (Routine) - ClosedSpecialtyDiagnoses / ProceduresReferred By ContactReferred To ContactRadiology Diagnoses Hydronephrosis Procedures IR Nephrostomy Tube Exchange Right Vicki Rubio M.D., M.S. [address] [place] [address] Phone: tel: fax: [facility] Referral IDStatusReasonStart DateExpiration DateVisits RequestedVisits [id number]/[id number]/27/[id number] Encounter Details DateTypeDepartmentCare Team (Latest Contact Info)Lkvxhbzdxdq65/04/2025 9:43 AM UNDERWATER TRAPPER - 08/30/2025 11:45 AM CSTHospital Encounter Department of Radiology, [facility], in [place], [place] [address] [place] [phone] Vicki Rubio M.D., M.S. 200 [place] [phone] Pelon Armas M.D. 200 [place] [phone] Hydronephrosis Discharge Disposition: Home or Self Care Social History Tobacco UseTypesPacks/DayYears UsedDateSmoking Tobacco: NeverSmokeless Tobacco: NeverAlcohol UseStandard Drinks/WeekCommentsNever0 (1 standard drink = 0.6 oz pure alcohol)[facility] UtilitiesAnswerDate RecordedIn the past 12 months has the [employer], gas, oil, or water [employer] threatened to shut off services in your [...] 05/27/2020CommentsNoSex and Gender InformationValueDate RecordedSex Assigned at XcdplPnspxw46/26/2025 10:16 AM CDTLegal TyxKjtuxt45/02/2017 2:16 PM CSTGender ZejrkkzjJayulg42/26/2025 10:16 AM CDTSexual OrientationStraight 02/19/2025 10:16 AM CDTdocumented as of this encounter Last Filed Vital Signs Vital SignReadingTime TakenCommentsBlood Hxmzcboa341/9708/30/2025 11:30 AM UNDERWATER TRAPPER Zrfix955708/30/2025 11:30 AM VJVWaznljtsthu82.5 ??C (97.7 ??F)08/30/2025 10:49 AM CSTRespiratory Rate--Oxygen Upijqwkzkp66%08/30/2025 11:30 AM CSTInhaled Oxygen Concentration--Weight--Height--Body Mass Index--documented in this encounter Functional Status * Patient VerificationQuestionAnswerDate of AssessmentAuthorBlood transfusion or in past 5 months?No08/30/2025 10:53 AM Kate Garcia R.N. * PainQuestionAnswerDate of AssessmentAuthorPain YlaudnqjOvcyg49/04/2025 11:09 AM Aster Prince R.N.Pain SobpxjnbxugXgeju36/04/2025 11:09 AM Aster Prince R.N.Pain TypeAcute pain08/30/2025 11:09 AM Aster Prince R.N. * Gusman Modified Baseline ComparisonQuestionAnswerDate of AssessmentAuthor Modified Gusman Score return to baseline?Yes08/30/2025 11:30 AM Aster Prince R.N. * Advanced DirectiveQuestionAnswerDate of AssessmentAuthorAdvance Directive Patient does not have advance directive, does not want fymwanijwxg40/04/2025 10:49 AM Kate Garcia R.N. * NPOQuestionAnswerDate of AssessmentAuthorTime of last yokpbd9592492/04/2025 10:48 AM Kate Garcia R.N.Date of last jekukd9879585/04/2025 10:48 AM Kate Garcia R.N.Date of last bvbae4779868/04/2025 10:48 AM Kate Tinsley R.N.Time of last xfdcg4642941/04/2025 10:48 AM Kate Garcia R.N. * Tobacco useQuestionAnswerDate of AssessmentAuthorHave you smoked any form of tobacco in the last 30 days?No08/30/2025 10:53 AM Kate Garcia R.N. * Modified Gusman ScoreQuestionAnswerDate of AssessmentAuthorMotor Activity2 08/30/2025 11:30 AM Aster Prince R.N.Wtbxdujyxih734/04/2025 11:30 AM Aster Prince R.N.Xvklrgepnlrze470/04/2025 11:30 AM Aster Prince R.N.Oxygen Idupntfmuj904/04/2025 11:30 AM Aster Prince R.N.Modified Gusman Sqlhh2825/04/2025 11:30 AM Aster Prince R.N.Systolic BP2 08/30/2025 [...] AssessmentAuthorHave you had a procedure outside of [facility] in the past 4 days? (Select Yes [...] Plan of Treatment DateTypeDepartmentCare Team (Latest Contact Info)Atmefihymzt80/03/2026 8:00 AM CSTProcedure visit Department of Urology in [place], [place] [address] [place] [address] Rupert Loving M.D. [address] [place] [address] documented as of this encounter Procedures Procedure NamePriorityDate/TimeAssociated DiagnosisCommentsIR NEPHROSTOMY TUBE EXCHANGE RIGHTRAD - Routine (most inpatients and all outpatients)08/30/2025 11:29 AM UNDERWATER TRAPPER Hydronephrosis documented in this encounter Results * IR Nephrostomy Tube Exchange Right (08/30/2025 11:29 AM UNDERWATER TRAPPER)Anatomical Region LateralityModalityGenito Urinary, Vascular Interventional RST LOS, Vascular Interventional ARZ LOS, Vascular Interventional FLA LOSRightX-Ray Angiography Specimen (Source)Anatomical Location / LateralityCollection Method / Volume Collection TimeReceived Time Impressions 08/30/2025 1:25 PM UNDERWATER TRAPPER Routine exchange of the 10-Bolivian right percutaneous nephrostomy tube. Recommend routine exchange in approximately 12 weeks. NR Narrative 08/30/2025 1:25 PM UNDERWATER TRAPPER EXAM: IR NEPHROSTOMY TUBE EXCHANGE RIGHT CLINICAL HISTORY: ??Routine right nephrostomy tube exchange. TECHNIQUE: ??The patient was placed prone on the fluoroscopy table, and the right flank was preppedand draped in standard sterile fashion. 1% lidocaine was used for local anesthesia. A net wpf developer image demonstrated relatively unchanged position of the 10-Bolivian right nephrostomy tube. Limited antegradenephrostogram was performed to confirm satisfactory position. Indwelling tube was removed over a guidewire and a new, 10-Bolivian by 25 cm locking-loop drain was formed [...] 1%lidocaine was used for local anesthesia. A net wpf developer image demonstratedrelatively unchanged position of the 10-Bolivian right nephrostomy tube.Limited antegrade nephrostogram was performed to confirm satisfactoryposition. Indwelling tube was removed over a guidewire and a new,10-Bolivian by 25 cm locking-loop drain was formed [...] were discussed. IMPRESSION: Routine exchange of the 10-Bolivian right percutaneous nephrostomy tube.Recommend routine exchange in [...] Recently Administered Medications Times are shown in UNDERWATER TRAPPER.Medication Order iohexoL 300 mg iodine/mL solution (Omnipaque) [...]
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
--- OUTSIDE RECORDS SUMMARY | 2025-08-30 15:53 | XMS_ITS | Encounter Summary ---
Author Organization [facility] Address [address] [place] [address] Care Team Providers Care Clerical Order Filler Name Role Phone Elsewhere, Pcp Primary Care Provider Unavailabl e Reason for Visit * ReasonCommentsAbdominal PainNausea Encounter Details DateTypeDepartmentCare Team (Latest Contact Info)Dzkfeiklawh35/04/2025 3:53 PM BAG SEWER - 08/30/2025 8:[address] [facility] [address] [place] [address] Sergo Hogan M.D. [address] [place] [address] Urinary Tract Infection Site Not Specified (Primary Dx); Vomiting Discharge Disposition: Home or Self Care Social History Tobacco UseTypesPacks/DayYears UsedDateSmoking Tobacco: NeverSmokeless Tobacco: NeverAlcohol UseStandard Drinks/WeekCommentsNever0 (1 standard drink = 0.6 oz pure alcohol)[facility] UtilitiesAnswerDate RecordedIn the past 12 months has the angel[employer], gas, oil, or water [employer] threatened to shut off services in your [...] 05/27/2020CommentsNoSex and Gender InformationValueDate RecordedSex Assigned at BbiowGppwzi86/26/2025 10:16 AM CDTLegal BggGuvrcp81/02/2017 2:16 PM CSTGender UhwqrluxFbxdsf69/26/2025 10:16 AM CDTSexual OrientationStraight 02/19/2025 10:16 AM CDTdocumented as of this encounter Last Filed Vital Signs Vital SignReadingTime TakenCommentsBlood Zuuvhaqv850/5808/30/2025 8:00 PM BAG SEWER Cvejf901908/30/2025 8:37 PM MVFSitsyjahmii37.1 ??C (98.8 ??F)08/30/2025 4:00 PM CSTRespiratory Vsnh150210/31/2024 4:00 PM CSTOxygen Artsqbkout41%08/30/2025 8:37 PM CSTInhaled Oxygen Concentration--Weight--Wkdrpi969.6 cm (5' 4)08/30/2025 3:59 PM CSTBody Mass Index--documented in this encounter Functional Status * Delirium Triage Screen (DTS)QuestionAnswerDate of AssessmentAuthorAsk the patient to spell LUNCH backwards.0-1 error - DTS negative. End of assessment.08/30/2025 4:00 PM Ava Rivas R.N. * ED Fall Risk Assessment ToolQuestionAnswerDate of AssessmentAuthorHistory of Falling in Last Three Months Including Since Yiqnbuixz138/04/2025 4:01 PM Ava Ham R.N.Confusion or Dpastcduokdekz038/04/2025 4:01 PM Ava Rivas R.N.Intoxicated or Rvftkrr419 4:01 PM Ava Rivas R.N.Impaired Nmqt157 4:01 PM Ava Rivas R.N.Mobility Assist Device Used0 08/30/2025 4:01 PM Ava Rivas R.N.Altered Ggzcqtrqtdb527/04/2025 4:01 PM Ava Rivas R.N.Fall Risk Lmghi533 4:01 PM Ava Rivas R.N. * Abuse IndicatorsQuestionAnswerDate of AssessmentAuthorIs there a history, concern, or exposure to physical, emotional, sexual, financial abuse, neglect or domestic violence?No08/30/2025 4:00 PM Ava Rivas R.N.Information OwbioeOviwofd03/04/2025 4:00 PM Ava Rivas R.N. * ED Delirium Screening/bCAMQuestionAnswerDate of AssessmentAuthorED Delirium Delirium Tdxalt0108/30/2025 4:00 PM Ava Rivas R.N. * Additional Fall Risk IndicationQuestionAnswerDate of AssessmentAuthor Clinically assessed at higher fall risk?No08/30/2025 4:01 PM Ava Rivas R.N. * Pain AssessmentQuestionAnswerDate of AssessmentAuthorPain Fnhyi29810/31/2024 4:00 PM Ava Rivas R.N. * Lozano [...] 2 (two) times a day. 60 capsule DME Urological supplies Indications:Obstruction Kidney,HydronephrosisDME Order 1 [...] removal appointment 6 tablet 09/14/2025 12:37 PM [facility]/09/2025 tamsulosin (Flomax) 0.4 mg 24 hr capsule Take 1 capsule (0.4 mg total) by mouth daily as needed (for flank pain). 60 capsule 09/14/2025 12:37 PM [facility]09/14/2025 tiZANidine (Zanaflex) 2 mg tablet Take 2 [...] (twelve) hours for 5 days. 10 tablet /05/2025 albuterol 2.5 mg /3 mL nebulizer solution Inhale 2.5 mg every 4 (four) hours as needed./ cyclobenzaprine (FlexeriL) 10 mg tablet Take 10 [...] 10:14 AM CDT06/04/2025documented as of this encounter ED Notes * [...] joints. No lymphadenopathy. J-shaped celiac trunk with sas-xazq-fucouzby narrowing in the proximal segment, unchanged since [...] Sergo Hogan M.D. at 09/01/2025 11:05 PM BAG SEWER SEWER SEWER * Sergo Hogan M.D. 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 IV fluids administered. Update 7:10 PM BAG SEWER Laboratory studies reveal Hgb decreased from 10.4 [...] Hogan M.D. 08/30/252130 Sergo Hogan M.D. 09/01/252304 SEWER SEWER SEWER documented in this encounter Plan of Treatment DateTypeDepartmentCare Team (Latest Contact Info)Wesxaeydojt87/03/2026 8:00 AM CSTProcedure visit Department of Urology in [place], [place] [address] [place] [address] Rupert Loving M.D. [address] [place] [address] documented as of this encounter Procedures Procedure NamePriorityDate/TimeAssociated DiagnosisCommentsTROPONIN T, 2H/6H REFLEX, 5TH GEN, UWyugy0808/30/2025 6:50 PM BAG SEWER DIPSTICK, USTAT110/31/2024 5:51 PM BAG SEWER DIPSTICK, BThjjxyc48/04/2025 5:51 PM BAG SEWER MICROSCOPIC NGIYFPVLSQ18/04/2025 5:51 PM BAG SEWER MICROSCOPIC GEJXBWLFMHcvwfej84/04/2025 5:51 PM BAG SEWER PH, USTAT110/31/2024 5:51 PM BAG SEWER PH, DXokodrp87/04/2025 5:51 PM BAG SEWER OSMOLALITY, USTAT110/31/2024 5:51 PM BAG SEWER OSMOLALITY, ALctjpqe51/04/2025 5:51 PM BAG SEWER URINALYSIS WITH LQPTVNALMQWPysyupp29/04/2025 5:51 PM BAG SEWER URINALYSIS WITH AWRLHMSTVALMMKX68/04/2025 5:[address] ABDOMEN PELVIS WITH IV CONTRASTRAD - Semiurgent (Fast; most ED patients; some inpatients)08/30/2025 5:01 PM BAG SEWER LACTATE, VENOUS, BSTAT110/31/2024 4:25 PM BAG SEWER PATIENT SENEUBGJUF57/04/2025 4:25 PM BAG SEWER VENOUS BLOOD GAS W/O XDSKDSPK37/04/2025 4:25 PM BAG SEWER TROPONIN T, BASELINE, 5TH GEN, PSTAT110/31/2024 4:24 PM BAG SEWER HEPATIC FUNCTION PANEL, SSTAT110/31/2024 4:24 PM BAG SEWER NT-PRO B-TYPE NATRIURETIC PEPTIDE (BNP), SSTAT110/31/2024 4:24 PM BAG SEWER SEDIMENTATION RATE, BSTAT110/31/2024 4:24 PM BAG SEWER PROTHROMBIN TIME (PT), PSTAT110/31/2024 4:24 PM BAG SEWER CBC WITH DIFFERENTIAL, BSTAT110/31/2024 4:24 PM BAG SEWER C-REACTIVE PROTEIN (CRP), S/PSTAT110/31/2024 4:24 PM BAG SEWER THYROID-STIMULATING HORMONE-SENSITIVE (S-TSH)STAT110/31/2024 4:24 PM BAG SEWER LIPASE, S/PSTAT110/31/2024 4:24 PM BAG SEWER BASIC METABOLIC PANEL, S/PSTAT12/12/2024 4:24 PM BAG SEWER JBDNFHT1608/30/2025 4:14 PM BAG SEWER documented in this encounter Results * (ABNORMAL) Troponin T, 2 Hour with 6 Hour Reflex, 5th Gen (08/30/2025 6:50 PM BAG SEWER)ComponentValueRef RangeTest MethodAnalysis TimePerformed AtPathologist SignatureTroponin T, 2 hr, 5th gen17(H)<=10 ng/L110/31/2024 7:28 PM TOCHJXA6L Vbexf1lb/L110/31/2024 7:28 PM CSTSTMAComment:6 hour collection not indicated.2H Delta InterpNot Ikhuelzf12/04/2025 7:28 PM CSTSTMASpecimen (Source)Anatomical Location / LateralityCollection Method / VolumeCollection TimeReceived Time Blood08/30/2025 6:50 PM CST08/30/2025 7:08 PM BAG SEWER Narrative Authorizing ProviderResult TypeResult StatusSergo Hogan M.D.LAB BLOOD TROPONINFinal ResultPerforming OrganizationAddressCity/State/ZIP CodePhone Number [facility] [address] [place] [address], [facility] [address] [place] [address] * (ABNORMAL) Microscopic Manual (08/30/2025 5:51 PM BAG SEWER)ComponentValueRef Range Test MethodAnalysis TimePerformed AtPathologist SignatureMicroscopyAbnormal 08/30/2025 7:18 PM CSTDTLRBC<3<3 /hpf08/30/2025 7:18 PM CSTDTLWBC1-3/hpf 08/30/2025 7:18 PM CSTDTLComment: ----REFERENCE VALUE---- <4 (Males) <11 (Females) Squamous Epithelial Cells, U1-3/hpf08/30/2025 7:18 PM CSTDTLBacteriaPresent(A) 08/30/2025 7:18 PM CSTDTLSpecimen (Source)Anatomical Location / Laterality Collection Method / VolumeCollection TimeReceived KxneBoicw39/04/2025 5:51 PM CST08/30/2025 6:44 PM BAG SEWER Narrative Authorizing ProviderResult TypeResult Boyd Hogan M.D.LAB URINE ORDERABLESFinal ResultPerforming OrganizationAddressCity/State/ZIP CodePhone Number [facility] [address] [place] [address], [address] [address] * (ABNORMAL) Dipstick, Urine (08/30/2025 5:51 PM BAG SEWER)ComponentValueRef Range Test MethodAnalysis TimePerformed AtPathologist SignatureHemoglobin, QL, U Moderate(A)Wfjuwelt39/04/2025 6:44 PM CSTDTLLeukocyte Esterase, ULarge(A) Jrararre98/04/2025 6:44 PM CSTDTLNitrite, LSlhcrlymMfaoyhoz19/04/2025 6:44 PM CSTDTLKetone, UNegativeNegative mg/dL08/30/2025 6:44 PM CSTDTLGlucose, U NegativeNegative mg/dL08/30/2025 6:44 PM CSTDTLSpecimen (Source)Anatomical Location / LateralityCollection Method / VolumeCollection TimeReceived Time Urine08/30/2025 5:51 PM CST08/30/2025 6:34 PM BAG SEWER Narrative Authorizing ProviderResult TypeResult Boyd Hogan M.D.LAB URINE ORDERABLESFinal ResultPerforming OrganizationAddressCity/State/ZIP CodePhone Number [facility] [address] [place] [address], [facility] [address] [place] [address] * pH, Urine (08/30/2025 5:51 PM BAG SEWER)ComponentValueRef RangeTest MethodAnalysis TimePerformed AtPathologist SignaturepH, U6.74.5 - 8.012/12/2024 7:02 PM BAG SEWER DTLSpecimen (Source)Anatomical Location / LateralityCollection Method / Volume Collection TimeReceived BdkdQugzy53/04/2025 5:51 PM CST08/30/2025 6:34 PM BAG SEWER Narrative Authorizing ProviderResult TypeResult StatusSergo Hogan M.D.LAB URINE ORDERABLESFinal ResultPerforming OrganizationAddressCity/State/ZIP CodePhone Number [facility] [address] [place] [address], [facility] [address] [place] [address] * Osmolality, Urine (08/30/2025 5:51 PM BAG SEWER)ComponentValueRef RangeTest Method Analysis TimePerformed AtPathologist SignatureOsmolality, [id number] - 1150 mOsm/kg08/30/2025 7:02 PM CSTDTLSpecimen (Source)Anatomical Location / LateralityCollection Method / VolumeCollection TimeReceived TimeUrine 08/30/2025 5:51 PM CST08/30/2025 6:34 PM BAG SEWER Narrative Authorizing ProviderResult TypeResult StatusSergo Hogan M.D.LAB URINE ORDERABLESFinal ResultPerforming OrganizationAddressCity/State/ZIP CodePhone Number [facility] [address] [place] [address], [facility] [address] [place] [address] * Dipstick, Urine (08/30/2025 5:51 PM BAG SEWER)ComponentValueRef RangeTest Method Analysis TimePerformed AtPathologist SignatureHemoglobin, QL, UNegative Rebzucey70/04/2025 6:42 PM CSTDTLLeukocyte Esterase, UNegativeNegative 08/30/2025 6:42 PM CSTDTLNitrite, WQvcycofsBklowtlk43/04/2025 6:42 PM CSTDTL Ketone, UNegativeNegative mg/dL08/30/2025 6:42 PM CSTDTLGlucose, UNegative Negative mg/dL08/30/2025 6:42 PM CSTDTLSpecimen (Source)Anatomical Location / LateralityCollection Method / VolumeCollection TimeReceived TimeUrine 08/30/2025 5:51 PM CST08/30/2025 6:32 PM BAG SEWER Narrative Authorizing ProviderResult TypeResult Boyd Hogan M.D.LAB URINE ORDERABLESFinal ResultPerforming OrganizationAddressCity/State/ZIP CodePhone Number [facility] [address] [place] [address], [facility] [address] [place] [address] * pH, Urine (08/30/2025 5:51 PM BAG SEWER)ComponentValueRef RangeTest MethodAnalysis TimePerformed AtPathologist SignaturepH, U6.84.5 - 8.012 7:02 PM BAG SEWER DTLSpecimen (Source)Anatomical Location / LateralityCollection Method / Volume Collection TimeReceived ComrYogvi14/04/2025 5:51 PM CST08/30/2025 6:32 PM BAG SEWER Narrative Authorizing ProviderResult TypeResult StatusSergo Hogan M.D.LAB URINE ORDERABLESFinal ResultPerforming OrganizationAddressty/State/[place] [address], [place] [address] * Microscopic Automated (08/30/2025 5:51 PM BAG SEWER)ComponentValueRef RangeTest MethodAnalysis TimePerformed AtPathologist QuxkjitwgNzaieiyeedFrafjt73/04/2025 6:42 PM CSTDTLRBCNone Seen<3 /hpf08/30/2025 6:42 PM CSTDTLWBC1-3/hpf08/30/2025 6:42 PM CSTDTLComment: ----REFERENCE VALUE---- <4 (Males) <11 (Females) Squamous Epithelial Cells, U1-3/hpf08/30/2025 6:42 PM CSTDTLSpecimen (Source) Anatomical Location / LateralityCollection Method / VolumeCollection Time Received YhncZywom46/04/2025 5:51 PM CST08/30/2025 6:32 PM BAG SEWER Narrative Authorizing ProviderResult TypeResult Boyd Hogan M.D.LAB URINE ORDERABLESFinal ResultPerforming OrganizationAddressCity/State/ZIP [place] [address], [place] [address] * Osmolality, Urine (08/30/2025 5:51 PM BAG SEWER)ComponentValueRef RangeTest Method Analysis TimePerformed AtPathologist SignatureOsmolality, Y154795 - 1150 mOsm/kg08/30/2025 7:02 PM CSTDTLSpecimen (Source)Anatomical Location / LateralityCollection Method / VolumeCollection TimeReceived TimeUrine 08/30/2025 5:51 PM CST08/30/2025 6:32 PM BAG SEWER Narrative Authorizing ProviderResult TypeResult StatusSergo Hogan M.D.LAB URINE ORDERABLESFinal ResultPerforming OrganizationAddressCity/State/ZIP CodePhone Number [facility] [address] [place] [address], [facility] [address] [place] [address] * Urinalysis, with Microscopic: Urine, Midstream (08/30/2025 5:51 PM BAG SEWER) ComponentValueRef RangeTest MethodAnalysis TimePerformed AtPathologist SignatureSourceUrine, Urine, Ugzvqikox99/04/2025 6:32 PM CSTDTLColor, UYellow 08/30/2025 6:32 PM CSTDTLClarity, BAzfum2908/30/2025 6:32 PM CSTDTLProtein, U6 <26 mg/dL08/30/2025 7:11 PM CSTDTLProtein/Osmolality0.11<0.42 ratio08/30/2025 7:11 PM CSTDTLPredicted 24 HR Protein, U93<229 mg/24 08/30/2025 7:11 PM BAG SEWER DTLPredicted Exwnd65-927dd/24 08/30/2025 7:11 PM CSTDTLSpecimen (Source) Anatomical Location / LateralityCollection Method / VolumeCollection Time Received TimeUrine (Urine, Midstream)08/30/2025 5:51 PM CST08/30/2025 6:32 PM BAG SEWER Narrative Authorizing ProviderResult TypeResult Boyd Hogan M.D.LAB URINE ORDERABLESFinal ResultPerforming OrganizationAddressCity/State/ZIP CodePhone Number [facility] [address] [place] [address], [facility] [address] [place] [address] * (ABNORMAL) Urinalysis, with Microscopic: Urine, Catheter (08/30/2025 5:51 PM BAG SEWER)ComponentValueRef RangeTest MethodAnalysis TimePerformed AtPathologist SignatureSourceUrine, Urine, Tkixjuvz22/04/2025 6:34 PM CSTDTLColor, UYellow 08/30/2025 6:34 PM CSTDTLClarity, YAjukj0608/30/2025 6:34 PM CSTDTLProtein, U262 (H)<26 mg/dL08/30/2025 7:31 PM CSTDTLProtein/Osmolality7.16(H)<0.42 ratio 08/30/2025 7:31 PM CSTDTLPredicted 24 HR Protein, U3996(H)<229 mg/24 h 08/30/2025 7:31 PM CSTDTLPredicted Mqfnx564-73225bw/24 08/30/2025 7:31 PM BAG SEWER DTLSpecimen (Source)Anatomical Location / LateralityCollection Method / Volume Collection TimeReceived TimeUrine (Urine, Catheter)08/30/2025 5:51 PM BAG SEWER 08/30/2025 6:34 PM BAG SEWER Narrative Authorizing ProviderResult TypeResult StatusSergo Hogan M.D.LAB URINE ORDERABLESFinal ResultPerforming OrganizationAddressCity/State/ZIP CodePhone Number [facility] [address] [place] [address], [facility] DTL [facility] [address] [place] [address] * CT Abdomen Pelvis with IV Contrast (08/30/2025 5:01 PM BAG SEWER)Anatomical Region LateralityModalityAbdomen, Pelvis, Abdominal RST LOS, Abdominal ARZ LOS, Abdominal FLA LOSN/AComputed Tomography, Computed TomographySpecimen (Source) Anatomical Location / LateralityCollection Method / VolumeCollection Time Received Time08/30/2025 4:58 PM BAG SEWER Impressions 08/30/2025 6:15 PM BAG SEWER No acute findings in the abdomen or pelvis. Narrative 08/30/2025 6:15 PM BAG SEWER EXAM: CT ABDOMEN PELVIS WITH IV CONTRAST [...] joints. No lymphadenopathy. J-shaped celiac trunk with tso-eovg-ftdtjcmw narrowing in the proximal segment, unchanged since [...] joints. No lymphadenopathy. J-shaped celiac trunk with nqv-davb-pvxdapok narrowing in the proximalsegment, unchanged since 2019. [...] * Lactate, Venous, Blood (08/30/2025 4:25 PM BAG SEWER)ComponentValueRef RangeTest MethodAnalysis TimePerformed AtPathologist SignatureLactate, Venous, B1.40.5 - 2.2 mmol/L110/31/2024 4:36 PM CSTSTMASpecimen (Source)Anatomical Location / LateralityCollection Method / VolumeCollection TimeReceived TimeBlood 08/30/2025 4:25 PM CST08/30/2025 4:32 PM BAG SEWER Narrative Authorizing ProviderResult TypeResult Boyd Hogan M.D.LAB BLOOD ADD-ONFinal ResultPerforming OrganizationAddressCity/State/ZIP CodePhone Number [facility] [address] [place] [address], [facility] [address] [place] [address] * Patient Status (08/30/2025 4:25 PM BAG SEWER)ComponentValueRef RangeTest Method Analysis TimePerformed AtPathologist VkzmbavrbIWO87.210.21=AIR08/30/2025 4:32 PM CSTSTMASpont. breaths/bgr760610/31/2024 4:32 PM CSTSTMASpecimen (Source) Anatomical Location / LateralityCollection Method / VolumeCollection Time Received RpxmLkriw00/04/2025 4:25 PM CST08/30/2025 4:32 PM BAG SEWER Narrative Authorizing ProviderResult TypeResult Boyd Hogan M.D.LAB BLOOD NON ADD-ONFinal ResultPerforming OrganizationAddressCity/State/ZIP CodePhone Number [facility] [address] [place] [address], [facility] [address] [place] [address] * Blood Gas without Coox, Venous (08/30/2025 4:25 PM BAG SEWER)ComponentValueRef Range Test MethodAnalysis TimePerformed AtPathologist SignaturepO2, Venous, B21Not applicable mm Hg08/30/2025 4:36 PM CSTSTMApCO2, Venous, B4341 - 51 mm Hg 08/30/2025 4:36 PM CSTSTMApH, Venous, B7.387.32 - 7.43 pH08/30/2025 4:36 PM CSTSTMABase Excess, Venous, B0Not applicable mmol/L110/31/2024 4:36 PM CSTSTMA HCO3, Venous, B25Not applicable mmol/L110/31/2024 4:36 PM CSTSTMASample Site, Venous, ENhybsqscl04/04/2025 4:32 PM CSTSTMASpecimen (Source)Anatomical Location / LateralityCollection Method / VolumeCollection TimeReceived Time Blood (Blood, Venous)08/30/2025 4:25 PM CST08/30/2025 4:32 PM BAG SEWER Narrative Authorizing ProviderResult TypeResult StatusSergo Hogan M.D.LAB BLOOD NON ADD-ONFinal ResultPerforming OrganizationAddressCity/State/ZIP CodePhone Number [facility] [address] [place] [address], [facility] STMA [facility] [address] [place] [address] * (ABNORMAL) CRP (C-Reactive Protein) (08/30/2025 4:24 PM BAG SEWER)ComponentValueRef RangeTest MethodAnalysis TimePerformed AtPathologist SignatureC-Reactive Protein (CRP), S9.5(H)<5.0 mg/L110/31/2024 5:32 PM CSTDTLSpecimen (Source) Anatomical Location / LateralityCollection Method / VolumeCollection Time Received TimeBlood (Blood, Venous)08/30/2025 4:24 PM CST08/30/2025 4:43 PM BAG SEWER Narrative Authorizing ProviderResult TypeResult StatusSergo Hogan M.D.LAB BLOOD ADD-ONFinal ResultPerforming OrganizationAddressCity/State/ZIP CodePhone Number [facility] [address] [place] [address], [facility] DTL [facility] [address] [place] [address] * S-TSH (Thyroid-Stimulating Hormone - Sensitive) (08/30/2025 4:24 PM BAG SEWER) ComponentValueRef RangeTest MethodAnalysis TimePerformed AtPathologist SignatureTSH, Sensitive2.00.3 - 4.2 mIU/L110/31/2024 5:32 PM CSTDTLSpecimen (Source)Anatomical Location / LateralityCollection Method / VolumeCollection TimeReceived TimeBlood (Blood, Venous)08/30/2025 4:24 PM CST08/30/2025 4:43 PM BAG SEWER Narrative Authorizing ProviderResult TypeResult Boyd Hogan M.D.LAB BLOOD ADD-ONFinal ResultPerforming OrganizationAddressCity/State/ZIP CodePhone Number [facility] [address] [place] [address], [facility] DTL [facility] [address] [place] [address] * (ABNORMAL) Troponin T, Baseline with 2 Hour/6 Hour Reflex Biomarker Panel (08/30/2025 4:24 PM BAG SEWER)ComponentValueRef RangeTest MethodAnalysis Time Performed AtPathologist SignatureTroponin T, Baseline, 5th gen15(H)<=10 ng/L 08/30/2025 4:58 PM CSTSTMASpecimen (Source)Anatomical Location / Laterality Collection Method / VolumeCollection TimeReceived TimeBlood (Blood, Venous) 08/30/2025 4:24 PM CST08/30/2025 4:32 PM BAG SEWER Narrative Authorizing ProviderResult TypeResult Boyd Hogan M.D.LAB BLOOD TROPONINFinal ResultPerforming OrganizationAddressCity/State/ZIP CodePhone Number [facility] [address] [place] [address], [facility] STMA [facility] [address] [place] [address] * (ABNORMAL) Sedimentation Rate (08/30/2025 4:24 PM BAG SEWER)ComponentValueRef Range Test MethodAnalysis TimePerformed AtPathologist SignatureSedimentation Rate, B 35(H)3 - 28 mm/08/30/2025 5:47 PM CSTDTLSpecimen (Source)Anatomical Location / LateralityCollection Method / VolumeCollection TimeReceived TimeBlood (Blood, Venous)08/30/2025 4:24 PM CST08/30/2025 4:44 PM BAG SEWER Narrative Authorizing ProviderResult TypeResult Boyd Hogan M.D.LAB BLOOD ADD-ONFinal ResultPerforming OrganizationAddressCity/State/ZIP CodePhone Number [facility] [address] [place] [address], [facility] DTL [facility] [address] [place] [address] * Prothrombin Time (PT) (08/30/2025 4:24 PM BAG SEWER)ComponentValueRef RangeTest MethodAnalysis TimePerformed AtPathologist SignatureProthrombin Time, P11.69.4 - 12.5 sec08/30/2025 4:42 PM CSTSTMAINR1.10.9 - 1. 4:42 PM CSTSTMA Comment: ----ADDITIONAL INFORMATION---- Standard intensity warfarin therapeutic range: 2.0 to 3.0 ?? High intensity warfarin therapeutic range: 2.5 to 3.5 Specimen (Source)Anatomical Location / LateralityCollection Method / Volume Collection TimeReceived TimeBlood (Blood, Venous)08/30/2025 4:24 PM BAG SEWER 08/30/2025 4:32 PM BAG SEWER Narrative Authorizing ProviderResult TypeResult Boyd Hogan M.D.LAB BLOOD ADD-ONFinal ResultPerforming OrganizationAddressCity/State/ZIP CodePhone Number [facility] [address] [place], [place] [address] STMA [facility] [address] [place] [address] * (ABNORMAL) NT-Pro B-Type Natriuretic Peptide (BNP) (08/30/2025 4:24 PM BAG SEWER) ComponentValueRef RangeTest MethodAnalysis TimePerformed AtPathologist SignatureNT-Pro NPT8133(H)<=540 pg/mL08/30/2025 4:58 PM CSTSTMAComment: NT-proBNP values less [...] Collection TimeReceived TimeBlood (Blood, Venous)08/30/2025 4:24 PM BAG SEWER 08/30/2025 4:32 PM BAG SEWER Narrative Authorizing ProviderResult TypeResult StatusSergo Hogan M.D.LAB BLOOD ADD-ONFinal ResultPerforming OrganizationAddressCity/State/ZIP CodePhone Number [facility] [address] [place] [address], [facility] [address] [address] * Lipase (08/30/2025 4:24 PM BAG SEWER)ComponentValueRef RangeTest MethodAnalysis Time Performed AtPathologist SignatureLipase, S3813 - 60 U/L110/31/2024 5:32 PM BAG SEWER DTLSpecimen (Source)Anatomical Location / LateralityCollection Method / Volume Collection TimeReceived TimeBlood (Blood, Venous)08/30/2025 4:24 PM BAG SEWER 08/30/2025 4:43 PM BAG SEWER Narrative Authorizing ProviderResult TypeResult StatusSergo Hogan M.D.LAB BLOOD ADD-ONFinal ResultPerforming OrganizationAddressCity/State/ZIP CodePhone Number [facility] [address] [place] [address], [facility] [address] [place] [address] * (ABNORMAL) Hepatic Function Panel (08/30/2025 4:24 PM BAG SEWER)ComponentValueRef RangeTest MethodAnalysis TimePerformed AtPathologist SignatureBilirubin, Total, S0.20.0 [...] (Blood, Venous)08/30/2025 4:24 PM CST08/30/2025 4:43 PM BAG SEWER Narrative Authorizing ProviderResult TypeResult StatusSergo Hogan M.D.LAB BLOOD ADD-ONFinal ResultPerforming OrganizationAddressCity/State/ZIP CodePhone Number [facility] [address] [place] [address], [facility] DTL [facility] [address] [place] [address] * (ABNORMAL) CBC with Differential, Blood (08/30/2025 4:24 PM BAG SEWER)ComponentValue Ref RangeTest MethodAnalysis TimePerformed AtPathologist SignatureHemoglobin 9.9(L)11.6 - 15.0 g/dL08/30/2025 4:35 PM DPOFEOUVvhuvrsgee97.3(L)35.5 - 44.9 % 08/30/2025 4:35 PM CSTSTMAErythrocytes3.41(L)3.92 - 5.13 x10(12)/L110/31/2024 4:35 PM XHWZPALZFW95.878.2 - 97.9 fL08/30/2025 4:35 PM CSTSTMARBC Distrib Width14.612.2 - 16.1 %08/30/2025 4:35 PM CSTSTMAPlatelet Hpfoi003(H)157 - 371 x10(9)/L110/31/2024 4:35 PM AJPHGLZEsuwlqaxtk43.2(H)3.4 - 9.6 x10(9)/L 08/30/2025 4:35 PM CSTSTMANeutrophils7.14(H)1.56 - 6.45 x10(9)/L110/31/2024 4:35 PM CSTDHPMLymphocytes2.030.95 - 3.07 x10(9)/L110/31/2024 4:35 PM CSTSTMA Monocytes0.95(H)0.26 - 0.81 x10(9)/L110/31/2024 4:35 PM CSTSTMAEosinophils0.07 0.03 - 0.48 x10(9)/L110/31/2024 4:35 PM CSTSTMABasophils0.030.01 - 0.08 x10(9)/L110/31/2024 4:35 PM CSTSTMASpecimen (Source)Anatomical Location / LateralityCollection Method / VolumeCollection TimeReceived TimeBlood (Blood, Venous)08/30/2025 4:24 PM CST08/30/2025 4:32 PM BAG SEWER Narrative Authorizing ProviderResult TypeResult StatusSergo Hogan M.D.LAB BLOOD ADD-ONFinal ResultPerforming OrganizationAddressCity/State/ZIP CodePhone Number [facility] [address] [place] [address], [facility] STMA [facility] [address] [place] [address] [facility] [address] [place] [address] * (ABNORMAL) Basic Metabolic Panel (08/30/2025 4:24 PM BAG SEWER)ComponentValueRef RangeTest MethodAnalysis TimePerformed AtPathologist SignaturePotassium, P4.6 3.6 - 5.2 mmol/L110/31/2024 4:49 PM CSTSTMASodium, [id number] - 145 mmol/L 08/30/2025 4:49 PM CSTSTMAChloride, S76544 - 107 mmol/L110/31/2024 4:49 PM BAG SEWER STMABicarbonate, P2322 - 29 mmol/L110/31/2024 4:49 PM [...] (Blood, Venous)08/30/2025 4:24 PM CST08/30/2025 4:32 PM BAG SEWER Narrative Authorizing ProviderResult TypeResult Boyd Hogan M.D.LAB BLOOD ADD-ONFinal ResultPerforming OrganizationAddressCity/State/ZIP CodePhone Number [facility] [address] [place] [address], [facility] [address] [place] [address] * ECG 12 Lead (08/30/2025 4:14 PM BAG SEWER)ComponentValueRef RangeTest MethodAnalysis TimePerformed AtPathologist SignatureVentricular Rate ECG/Qmm92NHUMRWEVV Lgvvwxio106zsJBKINZMB Bqoqzmhv62ikUXPSTV Wnbmqepo569xzKFMNFOB Czgiaimb267sp MUSEP Tmyo24igwbyrtTFNSW [place]-39degreesMUSET Wave Qaqs03ksnfzfiFWFZNhzdxpnr (Source)Anatomical Location / LateralityCollection Method / VolumeCollection TimeReceived Time08/30/2025 4:14 PM CST08/30/2025 4:21 PM BAG SEWER Impressions MUSE - 08/30/2025 4:21 PM BAG SEWER Normal sinus rhythm Left axis deviation When compared with ECG of 06-Mar-2025 18:18, No significant change was found Reviewed by TRISTIN Nicholson Narrative Procedure Note Fawad Lowe M.D. [...] per [facility]iant Medication Guidelines Given08/30/2025 4:56 PM VHQ066 mL NaCl 0.9% infusion 100 mL/hr, intravenous, Continuous, Starting on Juliet 08/30/25 at 1621 Rate/Dose Occkrj0108/30/2025 6:55 PM GBN205 mL/nlRcbcsgxkb24/04/2025 5:52 PM BAG SEWER 100 mL/hrRate/Dose Cbocun9008/30/2025 5:27 PM IMH374 mL/hr sodium chloride (PF) 0.9 % injection 1-100 mL 1-100 mL, intravenous, Once, On Juliet 08/30/25 at 1654, For 1 dose, Imaging Protocol Orders, Dose per Radiant Medication Guidelines Given08/30/2025 4:56 PM CST50 mLdocumented in this encounter Active and Recently Administered Medications Times are shown in BAG SEWER.Medication Order/ cefTRIAXone injection 1 g (Rocephin) (COMPLETED) [...] Fermin R.N.) * 1752 (Restarted - Provider: Mkie Fermin R.N.) * 1855 (Rate/Dose Verify - [...]
--- OUTSIDE RECORDS SUMMARY | 2025-09-11 11:30 | XMS_ITS | Encounter Summary ---
Author Organization [facility] Address [address] [place] [address] Care Team Providers Care Kindergarten Teacher Name Role Phone Elsewhere, Pcp Primary Care Provider Unavailabl e Reason for Visit * Outpatient (Routine) - ClosedSpecialtyDiagnoses / ProceduresReferred By ContactReferred To ContactUrology Vicki Rubio M.D., M.S. [address] [place] [phone] Phone: tel: fax: Rupert Loving M.D. [address] [place] [phone] Phone: tel: fax: Referral IDStatusReasonStart DateExpiration DateVisits RequestedVisits [id number]/27/20254/ Encounter Details DateTypeDepartmentCare Team (Latest Contact Info)Mrjtskiylpf86/16/2025 11:30 AM CSTOffice Visit Department of Urology in [place], [place] [address] [place] [phone] Rupert Loving M.D. [address] [place] [phone] Hydronephrosis (Primary Dx); Urinary Tract Infection Site Not Specified Social History Tobacco UseTypesPacks/DayYears UsedDateSmoking Tobacco: NeverSmokeless Tobacco: NeverAlcohol UseStandard Drinks/WeekCommentsNever0 (1 standard drink = 0.6 oz pure alcohol)[facility] UtilitiesAnswerDate RecordedIn the past 12 months [...] 05/27/2020CommentsNoSex and Gender InformationValueDate RecordedSex Assigned at MjlohYjtxkc85/26/2025 10:16 AM CDTLegal TinRttenb05/02/2017 2:16 PM CSTGender NadbgdrnYeeqeq63/26/2025 10:16 AM CDTSexual OrientationStraight 02/19/2025 10:16 AM CDTdocumented as of this encounter Progress Notes * Yadira Drummond P.A.-C. - 09/11/2025 11:30 AM CST SUBJECTIVE REFERRAL SOURCE: The patient is being seen in consultation at the request of Vicki Rubio M.D., M.S. [address] [place] [phone] CHIEF COMPLAINT / REASON FOR VISIT Patient [...] urinary tract infection. She then went to [place] and underwent stent removal. During that time [...] questions. Yadira Drummond P.A.-C. 09/11/2025 11:45 AM BAIT PACKER PACKER documented in this encounter Plan of Treatment DateTypeDepartmentCare Team (Latest Contact Info)Amjofvyvfre62/03/2026 8:00 AM CSTProcedure visit Department of Urology in [place], [place] [address] [place] [address] Rupert Loving M.D. [address] [place] [address] documented as of this encounter Visit Diagnoses Diagnosis Hydronephrosis- Primary Urinary Tract Infection Site Not Specified documented in this encounter Care Teams Team MemberRelationshipSpecialtyStart DateEnd Date Elsewhere, Pcp PCP - GeneralInternal Medicine04/18/25documented as of this encounter
--- OUTSIDE RECORDS SUMMARY | 2025-09-13 05:42 | XMS_ITS | Encounter Summary ---
Author Organization [facility] Address [address] [place] [address] Care Team Providers Care Power Press Operator Name Role Phone Elsewhere, Pcp Primary Care Provider Unavailabl e Reason for Referral * Outpatient (Routine) - AuthorizedSpecialtyDiagnoses / ProceduresReferred By ContactReferred To ContactUrology Neetu Simon M.D., M.Ed. [address] [place] [phone] Phone: tel: fax: Rupert Loving M.D. [address] [place] [address] Phone: tel: fax: Referral IDStatusReasonStart DateExpiration DateVisits RequestedVisits [id number]/19/20256/ T COIL WINDER * Outpatient (Routine) - AuthorizedSpecialtyDiagnoses / ProceduresReferred By ContactReferred To Contact Diagnoses Hydronephrosis With Ureteropelvic Junction Obstruction Procedures US Kidneys Bilateral with Bladder Neetu Simon M.D., M.Ed. [address] [place] [phone] Phone: tel: fax: [facility] Referral IDStatusReasonStart DateExpiration DateVisits RequestedVisits [id number]/19/20253/21/202711 T COIL WINDER * Outpatient (Routine) - AuthorizedSpecialtyDiagnoses / ProceduresReferred By ContactReferred To Contact Diagnoses Hydronephrosis With Ureteropelvic Junction Obstruction Procedures Cysto w/stent removal MS CYSTHRSCPY RMVL FB/STENT SMPL Neetu Simon M.D., M.Ed. [address] [place] [phone] Phone: tel: fax: [facility] Referral IDStatusReasonStart DateExpiration DateVisits RequestedVisits [id number]/19/20253/21/202711 T COIL WINDER Encounter Details DateTypeDepartmentCare Team (Latest Contact Info)Gesbuplrowd45/18/2025 5:42 AM LIGHT COIL WINDER - 09/14/2025 12:28 PM CSTHospital Encounter [facility], [facility], Fifth Floor [address] [place] [address] Rupert Loving M.D. 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 Patient unable to yjpjkc4109/13/2025Within the last year, have you been kicked, hit, slapped, or otherwise physically hurt by your partner or ex-partner?Patient unable to hecxag7109/13/2025Within the last year, have you been raped or forced to have any kind of sexual activity by your partner or ex-partner?Patient unable to ghztpb4709/13/2025Hunger Vital SignAnswerDate RecordedWithin the past 12 months, [...] has the electric, gas, oil, or water [employer] threatened to shut off services in your home?No09/13/2025Housing StabilityAnswerDate RecordedWhat is your living situation today?I have a steady place to live09/13/2025EducationAnswerDate RecordedWhat is the highest level of school you have completed or the highest degree you have received?Associate degree: occupational, technical, or vocational cnwyptu3905/27/2020Comments NoSex and Gender InformationValueDate RecordedSex Assigned at BirthFemale 02/19/2025 10:16 AM CDTLegal AglRgdskk24/02/2017 2:16 PM CSTGender Identity Yfrvqt5802/19/2025 10:16 AM CDTSexual CnvmxqqgxguDmxfnivq49/26/2025 10:16 AM CDT documented as of this encounter Last Filed Vital Signs Vital SignReadingTime TakenCommentsBlood Gxezuhvz109/9009/14/2025 12:15 PM LIGHT COIL WINDER Zbzoa351509/14/2025 12:15 PM IOCOwgfhrympyd16.6 ??C (97.9 ??F)09/14/2025 12:15 PM CSTRespiratory Qzqk208611/15/2024 12:15 PM CSTOxygen Vagesxhfvd623%09/14/2025 12:15 PM CSTInhaled Oxygen Concentration--Xylqeb24.9 kg (169 lb 8.5 oz) 09/13/2025 2:11 PM IHHXvdvww787 cm (5' 2.6)09/13/2025 6:17 AM CSTBody Mass Index30.42111/14/2024 6:17 AM CSTdocumented in this encounter Functional Status * Patient VerificationQuestionAnswerDate of AssessmentAuthorBlood transfusion or in past 5 months?No09/13/2025 6:18 AM CSTDillan Randolph M.S.N., R.N.Beta Romelia AdministeredNot qokajovqih17/18/2025 6:18 AM CSTDillan Randolph M.S.N., R.N. * Score InterpretationAnswerDate of AssessmentAuthorLow risk09/13/2025 6:04 PM Lori Cordova, R.N. * Obstructive Sleep Apnea ScreenQuestionAnswerDate of AssessmentAuthorPatient has a diagnosis of obstructive sleep apnea? 6:18 AM CSTDillan Randolph M.S.N., R.N. * Vital SignsQuestionAnswerDate of AssessmentAuthorRichmond Agitation Sedation Scale (RASS) 12:15 PM Camelia Banks * Faustino ScaleQuestionAnswerDate of AssessmentAuthorSensory Perceptions4 09/14/2025 9:02 AM Camelia Banks ERiujqhpy282/19/2025 9:02 AM Camelia Banks SEpodtobs670/19/2025 9:02 AM Camelia Banksobility3111/15/2024 9:02 AM Camelia Banks RLyhujzmqc921/19/2025 9:02 AM Camelia Banks Friction and Nzbpq99511/15/2024 9:02 AM Camelia Banks NBraden Scale Score20 09/14/2025 9:02 AM Camelia Banks * Advance DirectivesQuestionAnswerDate of AssessmentAuthorAdvance Directive Patient has advance directive, copy not in chart09/13/2025 6:03 PM Lori Cordova, R.N. * Delirium Triage Screen (DTS)QuestionAnswerDate of AssessmentAuthorAsk the patient to spell LUNCH backwards.0-1 error - DTS negative. End of assessment.09/14/2025 9:02 AM Camelia aBnks * Activity/MobilityQuestionAnswerDate of AssessmentAuthorRepositioning Sensor Remains in place09/14/2025 9:02 AM Camelia Banks * EvaluationsQuestionAnswerDate of AssessmentAuthorBased on your nursing assessment, would this patient/family benefit from a spiritual care consult fo r spiritual or emotional needs?No09/13/2025 6:04 PM Lori Cordova, RFeiN. * NPOQuestionAnswerDate of AssessmentAuthorTime of last tpyswv0866183/18/2025 6:09 AM Dillan Nayak M.S.N., R.N.Date of last iovywq41550 09/13/2025 6:09 AM Dillan Nayak, Melba.S.N., R.N.Date of last dmgsm1095052/18/2025 6:09 AM Dillan Nayak M.S.N., R.N.Time of last scefm8234852/18/2025 6:09 AM Dillan Nayak M.S.N., R.N. * Tobacco useQuestionAnswerDate of AssessmentAuthorHave you smoked any form of tobacco in the last 30 days?No09/13/2025 6:18 AM Dillan Nayak M.S.N., R.N. * STOP-BANG QuestionnaireQuestionAnswerDate of AssessmentAuthorDo you snore loudly (loud enough to be heard through closed doors or your bed-partner elbows you for snoring at night)? 6:18 AM Dillan Nayak M.S.N., R.N.Do you often feel tired, fatigued, or [...] M.S.N., R.N.Gender = Male? 6:18 AM Dillan aNyak M.S.N., R.N.STOP-BANG Total Hfvdl145 6:18 AM Dillan Nayak M.S.N., R.N. * Modified Gusman ScoreQuestionAnswerDate of AssessmentAuthorMotor Activity2 09/13/2025 4:05 PM Chrissy Acevedo R.N.Ufacrmamxei758/18/2025 4:05 PM Chrissy Joyce R.N.Orwslpyczphoe086/18/2025 4:05 PM Chrissy Acevedo R.N. Oxygen Aqkgdzygrs213/18/2025 4:05 PM Chrissy Acevedo RFeiN.Modified Gusman Edekx7533/18/2025 4:05 PM Chrissy Acevedo R.N.Systolic BP2111/14/2024 4:05 PM Chrissy Acevedo R.N. * Audit ScoreAnswerDate of KmdscgnfijIofwqu141/18/2025 6:04 PM Lori Cordova RGladys. * BMI: Desirable <25, High Risk >30AnswerDate of XocvsvzdpeNvllcaLbhc15/18/2025 2:11 PM Yani Zuniga R.N. * Fall RiskQuestionAnswerDate of AssessmentAuthorHave you fallen within the last year or do you fear you might fall?No09/13/2025 6:22 AM Dillan Nayak M.S.N., R.N.Do you use an assisted device to walk? (Walker, cane, wheelchair, crutch)Yes09/13/2025 6:22 AM Dillan Nayak M.S.N., R.N. * Spiritual Care/Tower Hand AssessmentQuestionAnswerDate of AssessmentAutMt. Sinai Hospitalo you struggle with the loss of meaning or chuckie in your life?No09/13/2025 6:04 PM Lori Cordova, R.N.Do you currently have what you would describe as spiritual or sikh struggle(s)?No09/13/2025 6:04 PM Lori Cordova, R.N. * Bedside Mobility Assessment Tool (BMAT)QuestionAnswerDate of AssessmentAuthor Mobility Level (calculated)Mobility Level 9:02 AM Camelia Banks NMobility Assessment Level 1: Sit and WgsoaTrcg40/19/2025 9:02 AM Camelia Banks NMobility Assessment Level 2: Stretch and AzcidGzgr04/19/2025 9:02 AM Camelia Banks NMobility Assessment Level 3: SmgdaHvsq52/19/2025 9:02 AM Camelia Wang NMobility Assessment Level 4: Modified IndependenceFail 09/14/2025 9:02 AM Camelia Banks NMobility Level 1 DevicesL1 - Ceiling Lift 09/14/2025 9:02 AM Camelia Banks NMobility Level 3 DevicesL3 - Gait belt;L3 - Zgdhbb9109/14/2025 9:02 AM Camelia Banks * Additional Fall Risk IndicationQuestionAnswerDate of AssessmentAuthor Clinically assessed at higher fall risk?Yes09/14/2025 9:02 AM Camelia Banks * AnthropometricsQuestionAnswerDate of AssessmentAuthorBMI (Calculated)30.4 09/13/2025 2:11 PM Yani Zuniga R.N. * Pain AssessmentQuestionAnswerDate of AssessmentAuthorResponse to Interventions Reports no side qajyhne4409/14/2025 6:00 AM Lee Ann Smith Location Back09/14/2025 6:00 AM Lee Ann Smith KynpdhemzgxRcned66/19/2025 6:00 AM Lee Ann Smith InterventionsMedication (See MAR)09/14/2025 6:00 AM Lee Ann Smith DescriptorsAching;Sharp09/13/2025 5:24 PM Camelia Banks NPlynette PrhqiMahvkvt76/18/2025 5:24 PM Camelia Banks NPlynette FrequencyConstant/mbgoobybep21/18/2025 5:24 PM Camelia Banks NPlynette Type Acute pain09/14/2025 6:00 AM Lee Ann Smith AClinical ProgressionNot vlydfgx8409/13/2025 5:24 PM Camelia Banks NPain Wkucl62511/15/2024 6:14 AM Lee Ann Bautista A * IntegumentaryQuestionAnswerDate of AssessmentAuthorPreventative Skin Action Prophylactic foam border dressing to sacrum/rzskhr9209/14/2025 9:02 AM Camelia Banks * Sedation ScalesQuestionAnswerDate of AssessmentAuthorSedation Scale Used Lozano Agitation Sedation Scale09/14/2025 9:02 AM Camelia Banks * GaleanoFord Fall Risk Assessment ScaleQuestionAnswerDate of AssessmentAuthor Last Known Mdij65011/15/2024 9:02 AM Camelia Banks NMobility1; 9:02 AM Camelia Banks TAuykhbxgpeg924/19/2025 9:02 AM Camelia Banks Mental Status/LOC/Llhychljz313/19/2025 9:02 AM Camelia Banks NToileting Xakkz087 9:02 AM Camelia Banks NVolume/Electrolyte Status0 09/14/2025 9:02 AM Camelia Banks NCommunication/Gywqdxc804 9:02 AM Camelia Banks INsppphsg230/19/2025 9:02 AM Camelia Banks NHester Dionte Fall Risk Iqukc00011/15/2024 9:02 AM Camelia Banks * Fall Risk Scale and AssessmentsQuestionAnswerDate of AssessmentAuthorFall Risk ScaleRockefeller War Demonstration Hospitalter Dionte09/14/2025 9:02 AM Camelia Banks * Overall bCAM scoreAnswerDate of KlfaaqiyuqDsqyfhBqpnlisp10/18/2025 8:00 PM LIGHT COIL WINDER Kaylah Bach, R.N. * Brief Confusion Assessment Method (bCAM)QuestionAnswerDate of AssessmentAuthor Feature 1: Altered Mental Status or Fluctuating LsrxggZrbxueof90/18/2025 8:00 PM Kaylah Clay, R.N. * Audit-C Total Score (max 12)AnswerDate of EvfoonlnrfImbkjs432/18/2025 6:04 PM Lori Cordova, R.N. * Audit-C Alcohol ScreeningQuestionAnswerDate of AssessmentAuthorHow often do you have a drink containing alcohol? 6:04 PM Lori Cordova, R.N. * Patient PreparationQuestionAnswerDate of AssessmentAuthorPre-Procedure Prep None09/13/2025 6:18 AM Dillan Nayak M.S.N., R.N.Oral Care [place] teeth09/13/2025 6:18 AM Dillan Nayak M.SRedd, R.N. * Early Screen for Discharge PlanningQuestionAnswerDate of AssessmentAuthorSelf- rated Walking Ybfxmavpit969/18/2025 6:05 PM Lori Cordova R.N.Age in Rxddu32011/14/2024 6:05 PM Lori Cordova R.N.Prior Living Status0 09/13/2025 6:05 PM Lori Cordova R.N.Roberto Disability Score3 09/13/2025 6:05 PM Lori Cordova R.N.ESDP Xozbe2877/18/2025 6:05 PM Lori Cordova R.N. * Exparel?? / Zynrelef??QuestionAnswerDate of AssessmentAuthorHave you had a procedure outside of [facility] in the past 4 days? (Select Yes if the patient iswearing an Exparel?? or a Zynrelef?? armband.)No09/13/2025 6:18 AM Dillan Nayak M.SRedd, R.N. * Fall Prevention InterventionsQuestionAnswerDate of AssessmentAuthorUniversal Fall Precautions in EgvidUmp40/19/2025 9:02 AM Camelia Banks NMobility InterventionsAssist device;Gait belt;09/14/2025 9:02 AM Camelia Banks Medication InterventionsDangle at bedside;09/14/2025 9:02 AM Camelia Banks NToileting Needs InterventionsAbsorbent incontinence pads09/14/2025 9:02 AM Camelia Banks NVolume/Electrolyte Status InterventionsEmesis basin within reach;09/14/2025 9:02 AM Camelia Banks NCommunication/Sensory InterventionsAmbient light;Sensory aids on;09/14/2025 9:02 AM Camelia Banks * Delirium Prediction Tool ScoreQuestionAnswerDate of AssessmentAuthorDelirium Surgical Score (Band Instrument Repairer Use Only)0.0909/14/2025 6:00 AM CSTSystem, Provider Not In * AUDIT-C InterpretationAnswerDate of RxetlgbsbhXfvqxkXwnkdkgj21/18/2025 6:04 PM Lori Cordova R.N. documented as of this encounter Mental Status * Summit Coma ScaleQuestionAnswerEntry DateAuthorEye Hrhhuyn369/19/2025 9:02 AM Camelia Banks NBest Motor Wrqeixve242/19/2025 9:02 AM CSTCamelia Bertrand N Best Verbal Eyanhfxz616/19/2025 9:02 AM CSTBeCamelia lagos NGlasgow Coma Scale Jvjkm4545/19/2025 9:02 AM Camelia Banks N documented in this encounter Discharge Summaries * Neetu Simon M.D., M.Ed. - 09/14/2025 10:34 AM CST DISCHARGE SUMMARY BRIEF OVERVIEW Hospital: [facility] Discharge Provider: Rupert Loving M.D. Primary Team: [facility] Urology Surgery - Fabienne Primary Care Providers: [...] Rupert Loving M.D.Seyer, Amanda K, M.D., M.Ed. [facility] ROEI OR DISCHARGE DISPOSITION Home or Self [...] spent in discharge services today: 20 minutes. T COIL WINDER documented in this encounter Discharge Instructions * Discharge Instructions* Dre Barcenas - 09/14/2025 7:37 AM LIGHT COIL WINDER You were discharged from the [facility] Urology Surgery - [place] Service. Please identify this service nameif you call with questions after hospitalization. T COIL WINDER * Patient Instructions* Janie Sanchez R.N. - 09/14/2025 9:45 AM LIGHT COIL WINDER [place] [employer] is a service of the [place] [employer]ging in partnership with [place]'s Area Agencies on Aging. It is a free service of the [facility] that connects older [place] and their families with the help they need. Call the [place] Aging Pathway Line?? at: [phone] M-F, 8am-4:30pm to connect with specialists that are available to assist you with your specific needs or check out their website at https://[place].gov/aging-pathways/ T COIL WINDER * Attachments The following attachments cannot be sent through Care Everywhere. * Polyethylene Glycol 3350 (By mouth) (Solomon Islander) * Simethicone (By mouth) ([place] Islander) * Tamsulosin (By mouth) ([place] Islander) * Trospium (By mouth) ([place] Islander) documented in this encounter Medications at Time [...] removal appointment 6 tablet 09/14/2025 12:37 PM /09/2025 tamsulosin (Flomax) 0.4 mg 24 hr capsule [...] NOTE Subjective POD 1 from R pyeloplasty BELINDAEO NEOS She looks and feels great this morning [...] & Screen Expiration 09/16/2025 23:59 Testing Location [facility] Blood Gas with Coox, Arterial Collection Time: [...] Intake/Output Summary (Last 24 hours) at 09/14/2025 0525 Last data filed at 09/14/2025 0421 Gross [...] Neetu Simon M.D., M.Ed. 09/14/2025 5:25 AM LIGHT COIL WINDER T COIL WINDER * Gino Ruiz W - 09/13/2025 7:15 AM CST [facility] Spiritual Care Progress Note Patient: Sun Singh Age:85 y.o. Location: [facility] Reason(s) for encounter: Spiritual support as part of the interdisciplinary care team. Gnosticism Identification / Spiritual Practices: Caodaism. Spiritual Needs and/or Concerns: Mrs. Singh welcomed prayer before surgery. Shared prayer. Spiritual Care interventions: Introduced the role as member of the interdisciplinary care team with the aim of establishing spiritual therapeutic rapport with patient and/or family Facilitated sikh/spiritual practices (prayer, blessing, sacred texts, sikh item) with theaim to reinforce patient's spiritual wellness and connection with source of sacredness. Spiritual Care outcomes: Patient/family was appreciative of spiritual care support. Spiritual Care Plan / Recommendations: Will remain available for spiritual care as needed or requested. Chaplains can be contacted by paging [phone] ([place]) or [phone] (Meenakshi). T COIL WINDER * Kali Ponce, PharmFeiD., R.Ph. - 09/13/2025 6:22 AM CST Images from the original note were not included. Admission Medication History Note Adherence issues: No concerns Medication list source: Patient Medication related information: -has not taken dabigatran for several months. Per pt and family, radio program checker will resume dabigatran or another anticoagulant a few weeks after this procedure -off metoprolol for > 1 month -has not started Breyna inhaler yet but just using albuterol at this time -recently completed 2 day course of Bactrim -infrequent use of oxycodone or tizanidine Prior to Admission Medications Med List Status: Pharmacy Complete Set By: Kali Ponce, PharmFeiD., R.Ph. at 09/13/2025 6:22 AM Taking? Last [...] -- -- -- -- 220 mg daily. T COIL WINDER documented in this encounter Consult Notes * Janie Sanchez R.N. - 09/14/2025 9:44 AM CSTAssociated Order(s): IP CONSULT TO CARE MANAGEMENT Discharge Planning Assessment SUBJECTIVE Assessment Information Referral Data Referral Source: Early Screen for Discharge Planning Referral Name: ESDP 11 Previous Assessment: No Music Theory Teacher Services Used: No Primary Language: [place] Islander Music Theory Teacher Services Used: No Person(s) Present During Interview: patient History of Present Illness #1 Hydronephrosis With Ureteropelvic Junction Obstruction Social History Marital Status: Support System: spouse, children, and friends/neighbors Primary Caregiver: self Social Drivers of Health with Concerns No concerns present OBJECTIVE Finance/Insurance Primary insurance: MEDICARE A AND B Secondary insurance: [employer] benefits: No Advance Directives Legal Decision Maker: Self Advance Directives: Power of Wire Coiler Machine Operator for health care Advance Directives Status: Not Activated Baseline Functional Status Baseline Activities of Daily Living Mobility: Requires aide of device Dressing: Independent Feeding: Independent Bathing: Independent Grooming: Independent Toileting: Independent Behavior: Appropriate, Calm, Pleasant, Cooperative Communication: Talks, Understands speaking, Understands [place] Islander Shopping: Needs assistance Medication Management: Independent Housekeeping: [...] Primary Care Physician Family Medicine 03/06/25 Address: [address] [place] [phone] Joann Motta D.O. External Primary Care Physician Family Medicine 04/18/25 Address: [address] [place] [phone] Services/Resources: Housekeeping, Lawn care, Snow removal Additional [...] and Caregiver Arranged: Yes Ride Caregiver Provider: marina Radha Phone Number for Ride/Caregiver: [phone] Anticipated Discharge Destination: Home or Self Care Referrals Initiated: None ASSESSMENT / PLAN ASSESSMENT: The transportation program director met with Sun Singh to discuss her [...] been completed by patient, patient's daughter, and product marketing consultant. transportation program director met with patient this morning to address [...] provided by her spouse, daughter, and son. manager country reviewed the [facility] Discharge Planning Guide ([id number]) and provided a copy to patient/decision maker. Patient acknowledges understanding of the discharge process, expectations,and potential consequences of non-participation in discharge planning. transportation program director provided the [place] [facility] handout. - Based on this assessment, no skilled post-hospital discharge care needs have been identified thatrequire the assistance of the Care Management Team. - Patient is not aligned with [facility] Accountable Care Organization ([facility])and does not qualify for the 3-Day [place] [facility] Facility (SNF) Rule Waiver, allowing admission to a SNF without the standard three-day inpatient hospital stay. If qualified, broad referrals will be sent to facilities within the ACO network if a skilled need has been identified. transportation program director recommendations include: discussing needed assistance with family, [...] dismissal will be provided by family--Radha gray ([phone]). transportation program director encouraged the patient to reach out with any questions/concerns. Care Management will continue to assess for homegoing needs with the interdisciplinary team. Signed by: Janie Sanchez R.N. 09/14/2025 T COIL WINDER documented in this encounter Nursing Notes * Camelia Bertrand R.N. - 09/14/2025 12:26 PM CST Patient discharged home to self care with belongings via wheelchair. Patient refused transport, a family member pushed patients wheelchair. Went over AVS, all questions answered. Electronically signed by: Camelia Bertrand R.N. 09/14/2025 12:27 PM LIGHT COIL WINDER T COIL WINDER * Camelia Bertrand R.N. - 09/14/2025 12:26 [...] by: Camelia Bertrand R.N. 09/14/2025 12:26 PM LIGHT COIL WINDER Problem: Risk for Compromised Skin Integrity-Other General House Worker(s) Goal: Risk for Compromised Skin Integrity-Other General House Worker(s) Outcome: Adequate for Discharge Problem: Risk for Compromised Skin Integrity-Faustino Activity Score 3 Goal: Achieve optimal activity to maintain or improve skin integrity. Outcome: Adequate for Discharge T COIL WINDER documented in this encounter OR Notes * Op Note - Neetu Simon M.D., M.Ed. - 09/13/2025 9:02 AM CST Pre-op Diagnosis 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 Post-op Diagnosis 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 Vac Press Operator A assistant professor of mathematics actively participated and was necessary for one [...] 5 mm Visiport with a 12 mm dyer assistant port with AirSeal. The patient was then [...] We closed fascia of the 12 mm dyer assistant port under direct visualization with #1 Vicryl [...] PACU in stable condition. All sponge and instrumentcounts correct. PLAN: -UCO/VT POD 1, cystoscopy stent removal in 6 weeks Neetu Simon M.D., M.Ed. Cosigned by Rupert Loving M.D. at 09/18/2025 1:30 PM LIGHT COIL WINDER T COIL WINDER T COIL WINDER documented in this encounter Miscellaneous Notes * Hospital Course - Neetu Simon M.D., M.Ed. - 09/14/2025 7:00 AM LIGHT COIL WINDER SURGICAL PROCEDURE: A robotic assisted RIGHT pyeloplasty [...] Results Component Value Date WBC 8.4 09/14/2025 T COIL WINDER T COIL WINDER documented in this encounter Plan of Treatment DateTypeDepartmentCare Team (Latest Contact Info)Qqoxtbrsemj59/03/2026 8:00 AM CSTProcedure visit Department of Urology in [place], [place] [address] [place] [address] Rupert Loving M.D. [address] [place] [address] NameTypePriorityAssociated DiagnosesOrder ScheduleUS Kidneys Bilateral with BladderImagingRAD - Routine (most inpatients and all outpatients) Hydronephrosis With Ureteropelvic Junction Obstruction Expected: 12/13/2025 (Approximate), Expires: 12/13/2026asic Metabolic PanelLab Routine Hydronephrosis With Ureteropelvic Junction Obstruction Expected: 12/13/2025 (Approximate), Expires: 12/13/2026NameTypePriority Associated DiagnosesOrder ScheduleUrology office visit (clinic)Outpatient ReferralRoutineExpected: 12/13/2025 (Approximate), Expires: 12/13/2026documented as of this encounter Procedures Procedure NamePriorityDate/TimeAssociated DiagnosisCommentsCBC WITHOUT DIFFERENTIAL, WFarwqht42/19/2025 12:35 AM LIGHT COIL WINDER BASIC METABOLIC PANEL, S/NXvsnuso49/19/2025 12:35 AM LIGHT COIL WINDER PULSE OXIMETRY WITH REMOTE WVHPIQLRWmqmbtq15/18/2025 6:18 PM CSTPULSE OXIMETRY WITH REMOTE MJDXPKQONaahioo40/18/2025 6:18 PM CSTADULT OXYGEN THERAPYRoutine 09/13/2025 5:23 PM CSTADULT OXYGEN XHGNFMLMcznhnt07/18/2025 5:23 PM CSTADULT OXYGEN RNBPVQVTgyhkvn17/18/2025 5:23 PM CSTADULT OXYGEN OMBPIFPQndrwgj36/18/2025 11:40 AM CSTPATIENT STATUS, WCHEDOR41/18/2025 8:32 AM [facility] SODIUM, BSTAT111/14/2024 8:32 AM [facility] ABG W/CASOQXSZ59/18/2025 8:32 AM [facility] POTASSIUM, BSTAT111/14/2024 8:32 AM [facility] GLUCOSE, WHOLE YYXHLOTAO43/18/2025 8:32 AM [facility] CALCIUM, IONIZED, S/BSTAT111/14/2024 8:32 AM [facility] TYPE AND MOVAPYUasowzk83/18/2025 8:20 AM [facility] STENT PLACEMENT - OKWNNGMS64/18/2025 7:24 AM [facility] 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 QLWUYUDPHPGD72/18/2025 7:24 AM [facility] 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 ROBOTIC-ASSISTED BCRRZYFHLKY26/18/2025 7:24 AM [facility] 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 documented in this encounter Results * (ABNORMAL) CBC without Differential (09/14/2025 12:35 AM [facility])ComponentValueRef RangeTest MethodAnalysis TimePerformed AtPathologist SignatureHemoglobin8.3 (L)11.6 - 15.0 g/dL09/14/2025 12:51 AM VOKYKKZumbojrmrt61.4(L)35.5 - 44.9 % 09/14/2025 12:51 AM CSTDTLErythrocytes2.93(L)3.92 - 5.13 x10(12)/L111/15/2024 12:51 AM ITFDFLBOL55.178.2 - 97.9 fL09/14/2025 12:51 AM CSTDTLRBC Distrib Width14.612.2 - 16.1 %09/14/2025 12:51 AM CSTDTLPlatelet Nczli433(H)157 - 371 x10(9)/L111/15/2024 12:51 AM CSTDTLLeukocytes8.43.4 - 9.6 x10(9)/L111/15/2024 12:51 AM CSTDTLSpecimen (Source)Anatomical Location / LateralityCollection Method / VolumeCollection TimeReceived TimeBlood (Blood, Venous)09/14/2025 12:35 AM CST09/14/2025 12:44 AM [facility] Narrative Authorizing ProviderResult TypeResult StatusNeetu Simon M.D. MFeiEd.LAB BLOOD ADD-ONFinal ResultPerforming OrganizationAddressCity/State/ZIP CodePhone Number [facility] [address] [place] [address], [facility] DTL [facility] [address] [place] [address] * (ABNORMAL) Basic Metabolic Panel (09/14/2025 12:35 AM [facility])ComponentValueRef RangeTest MethodAnalysis TimePerformed AtPathologist SignaturePotassium, S5.0 3.6 - 5.2 mmol/L111/15/2024 1:14 AM CSTDTLSodium, S133(L)135 - 145 mmol/L 09/14/2025 1:14 AM CSTDTLChloride, R31361 - 107 mmol/L111/15/2024 1:14 AM [facility] DTLBicarbonate, S21(L)22 - 29 mmol/L111/15/2024 1:14 AM CSTDTLAnion Duc304 - 15 09/14/2025 1:14 AM CSTDTLBUN (Blood [...] (Blood, Venous)09/14/2025 12:35 AM CST09/14/2025 12:59 AM [facility] Narrative Authorizing ProviderResult TypeResult StatusNeetu Simon M.D., M.Ed.LAB BLOOD ADD-ONFinal ResultPerforming OrganizationAddressCity/State/ZIP CodePhone Number [facility] [address] [place] [address], [facility] DTL [facility] [address] [place] [address] * Patient Status (09/13/2025 8:32 AM [facility])ComponentValueRef RangeTest Method Analysis TimePerformed AtPathologist EtmnibttfNwfuimsimxk47.037.0 deg C 09/13/2025 8:32 AM BATNEPTPOW52.570.21=AIR09/13/2025 8:32 AM CSTMETHSpecimen (Source)Anatomical Location / LateralityCollection Method / VolumeCollection TimeReceived VqkrTnvgw92/18/2025 8:32 AM CST09/13/2025 8:32 AM [facility] Narrative Authorizing ProviderResult TypeResult StatusSoren Alfaro M.D.LAB BLOOD NON ADD-ONFinal ResultPerforming OrganizationAddressCity/State/ZIP CodePhone Number [facility] [address] [place] [address], [facility] METH [facility] [address] [place] [address] * Glucose, Whole Blood (09/13/2025 8:32 AM [facility])ComponentValueRef RangeTest MethodAnalysis TimePerformed AtPathologist GyjuuwjpzMwzsqkz37744 - 140 mg/dL 09/13/2025 8:33 AM CSTMETHSpecimen (Source)Anatomical Location / Laterality Collection Method / VolumeCollection TimeReceived TimeBlood (Blood, Arterial) 09/13/2025 8:32 AM CST09/13/2025 8:32 AM [facility] Narrative Authorizing ProviderResult TypeResult StatusSoren Alfaro M.D.LAB BLOOD ADD-ON Final ResultPerforming OrganizationAddressCity/State/ZIP CodePhone Number [facility] [address] [place] [address], [facility] [address] [place] [address] * Potassium, Blood (09/13/2025 8:32 AM [facility])ComponentValueRef RangeTest Method Analysis TimePerformed AtPathologist SignaturePotassium, B3.93.6 - 5.2 mmol/L 09/13/2025 8:40 AM CSTMETHSpecimen (Source)Anatomical Location / Laterality Collection Method / VolumeCollection TimeReceived TimeBlood (Blood, Arterial) 09/13/2025 8:32 AM CST09/13/2025 8:32 AM [facility] Narrative Authorizing ProviderResult TypeResult StatusSoren Alfaro M.D.LAB BLOOD NON ADD-ONFinal ResultPerforming OrganizationAddressCity/State/ZIP CodePhone Number [facility] [address] [place] [address], [facility] [address] [place] [address] * Sodium, B (09/13/2025 8:32 AM [facility])ComponentValueRef RangeTest MethodAnalysis TimePerformed AtPathologist SignatureSodium, I276181 - 145 mmol/L111/14/2024 8:33 AM CSTMETHSpecimen (Source)Anatomical Location / LateralityCollection Method / VolumeCollection TimeReceived TimeBlood (Blood, Arterial)09/13/2025 8:32 AM CST09/13/2025 8:32 AM [facility] Narrative Authorizing ProviderResult TypeResult StatusSoren Alfaro M.D.LAB BLOOD NON ADD-ONFinal ResultPerforming OrganizationAddressCity/State/ZIP CodePhone Number [facility] [address] [place] [address], [facility] [address] [place] [address] * Calcium, Ionized (09/13/2025 8:32 AM [facility])ComponentValueRef RangeTest Method Analysis TimePerformed AtPathologist SignatureCalcium, Ionized, B4.804.65 - 5.30 mg/dL09/13/2025 8:40 AM CSTMETHSpecimen (Source)Anatomical Location / LateralityCollection Method / VolumeCollection TimeReceived TimeBlood (Blood, Arterial)09/13/2025 8:32 AM CST09/13/2025 8:32 AM [facility] Narrative Authorizing ProviderResult TypeResult StatusSoren Alfaro M.D.LAB BLOOD NON ADD-ONFinal ResultPerforming OrganizationAddressCity/State/ZIP CodePhone Number [facility] [address] [place] [address], [facility] [address] [place] [address] * (ABNORMAL) Blood Gas with Coox, Arterial (09/13/2025 8:32 AM [facility])Component ValueRef RangeTest MethodAnalysis TimePerformed AtPathologist IulargofwwL3946 (H)83 - 108 mm Hg09/13/2025 8:33 AM DZYGCQAdFO80953 - 45 mm Hg09/13/2025 8:33 AM CSTMETHpH7.397.35 - 7.45 pH09/13/2025 8:33 AM CSTMETHBase Excess-5(L)-2 - 3 mmol/L111/14/2024 8:33 AM OOTIEICJYP338(L)22 - 26 mmol/L111/14/2024 8:33 AM [facility] METHHemoglobin, B8.7(L)11.6 - 15.0 g/dL09/13/2025 8:33 AM BNGMRDNI9Lq00.794.0 - 98.0 %09/13/2025 8:33 AM CSTMETHCOHb1.1<3.0 %09/13/2025 8:33 AM CSTMETHMetHb 1.2<1.5 %09/13/2025 8:33 AM RTAYIDVFdG672.3(L)18.0 - 21.0 vol %09/13/2025 8:33 AM CSTMETHSpecimen (Source)Anatomical Location / LateralityCollection Method / VolumeCollection TimeReceived TimeBlood (Blood, Arterial)09/13/2025 8:32 AM CST09/13/2025 8:32 AM [facility] Narrative Authorizing ProviderResult TypeResult StatusSoren Alfaro M.D.LAB BLOOD NON ADD-ONFinal ResultPerforming OrganizationAddressCity/State/ZIP CodePhone Number [facility] [address] [place] [address], [place] METH [address] [address] * Type and Screen (with Reflex Antibody ID) (09/13/2025 8:20 AM [facility])Component ValueRef RangeTest MethodAnalysis TimePerformed AtPathologist SignatureABORhO PosNot ihclmcwhjb88/18/2025 9:26 AM CSTETRMAntibody ScreenNegativeNegative 09/13/2025 9:40 AM CSTETRMType & Screen Uguozqijur69/21/2025 23:5909/13/2025 9:26 AM CSTETRMTesting Location[place] DEFAULT 09/13/2025 8:43 AM CSTETRMSpecimen (Source)Anatomical Location / Laterality Collection Method / VolumeCollection TimeReceived TimeBlood (Blood, Venous) 09/13/2025 8:20 AM CST09/13/2025 8:43 AM [facility] Narrative Authorizing ProviderResult TypeResult StatusBenvale Alfaro M.D.LAB BLOOD BANK TEST ORDERABLESFinal ResultPerforming OrganizationAddressCity/State/ZIP Code Phone Number [address] [address], [facility] ETRM [address] [address] documented in this encounter Visit Diagnoses Diagnosis [...] acetaminophen before tramadol. Given09/14/2025 6:04 AM CST1,000 kbRfgpt2209/14/2025 1:08 AM CST1,000 mg benzocaine-menthoL 15-3.6 mg [...] 1140, PACU (only) Given09/13/2025 12:08 PM CST25 xzgOgggp41/18/2025 11:59 AM CST25 mcgGiven 09/13/2025 11:56 AM [...] 2200 Given09/14/2025 6:04 AM CST5,000 UnitsLeft Lower EgdnpdcRrwbu85/18/2025 8:28 PM CST5,000 UnitsLeft Upper Arm (Back) HYDROmorphone (PF) injection 0.2 mg (Dilaudid) 0.2 mg, intravenous, Every 5 min PRN, moderate pain or score 4-6 of 10, severe pain or score 7-10 of 10, Starting on Juliet 09/13/25 at 1140, For 5 doses, PACU (only) Given09/13/2025 1:41 PM CST0.2 lvLucky3709/13/2025 1:35 PM CST0.2 mgGiven 09/13/2025 1:29 PM [...] Starting on Juliet 09/13/25 at 1745 Rate/Dose Esikpe9109/14/2025 6:03 AM EHZ452 mL/hrNew Bag09/14/2025 3:27 AM NFM277 mL/hr100 mL/hrRate/Dose Dcixin3009/13/2025 11:56 PM TBD857 mL/hr levothyroxine tablet 88 mcg 88 mcg, [...] Post Medications (Hazardous/Low Fluid Volume), Starting on [facility]11/14/24 at 1412, For 7 days, Infuse at [...] Post Medications (Hazardous/Low Fluid Volume), Starting on [facility]11/14/24 at 1741, For 7 days, Infuse at [...] patient has diarrhea. Given09/14/2025 8:51 AM CST1 wsiweyPujtx77/18/2025 8:28 PM CST1 tablet simethicone chewable tablet [...] Recently Administered Medications Times are shown in [facility].Medication Order acetaminophen injection 1,000 mg (COMPLETED) 1,000 mg, intravenous, at 400 mL/hr, Administer over 15 Minutes, Once, On Juliet 09/13/25 at 1300, For1 dose, PACU (only), Restriction Criteria (Pharmacy will review and approve if criteria met): Unable to take or tolerate medications administered via the enteral route or orally (not just NPO) * 1234 (New Bag - Provider: Melba Pro.S.N., R.N.) * 1349 (Stopped - Provider: Melba Pro.S.N., R.N.) acetaminophen tablet 1,000 mg (TylenoL) (COMPLETED) 1,000 mg, oral, Once, On Juliet 09/13/25 at 0615, For 1 dose, Pre-Op, PreOp give in preprocedural area. * 0647 (Given - Provider: Melba Cortes.S.N., R.N.) acetaminophen tablet 1,000 mg (TylenoL) 1,000 mg, oral, Every 6 hours, First dose (after last modification) on Juliet 09/13/25 at 1900, For mild pain, give acetaminophen before tramadol. * 1836 (Not Given - Provider: Camelai Bertrand RFeiN. - Reason: Other - Comment: order for PRN, new order put meds on a schedule, too close to give) * 0108 (Given - Provider: Lee Ann Rosenthal R.N.) * 0604 (Given - Provider: Lee Ann [...] * 0835 (Given - Provider: Milena Luz RFeiN.) heparin (porcine) injection 5,000 Units (COMPLETED) 5,000 Units, subcutaneous, Once, On Juliet 09/13/25 at 0800, For 1 dose, Intra-Op, Administer prior toinduction of anesthesia. * 0825 (Given - Provider: Viky LaraN.) heparin (porcine) injection 5,000 Units 5,000 Units, subcutaneous, Every 8 hours scheduled, First dose on [facility] 09/13/25 at 2200 * 2027 (Given - Provider: Kaylah Bach RFeiN.) * 0604 (Given - Provider: Lee Ann Rosenthal RFeiN.) ipratropium-albuteroL 0.5-2.5 mg/3 mL nebulizer solution 3 mL (DuoNeb) (COMPLETED) 3 mL, nebulization, Once, On [facility] 09/13/25 at 0715, For 1 dose, Pre-Op * 0750 (Given - Provider: Kelly Sneed RFeiN.) ketamine injection 5 mg (Ketalar) (COMPLETED) 5 mg, intravenous, Once, On [facility] 09/13/25 at 1615, For 1 dose, PACU (only) * 1550 (Given - Provider: Xin Martin RFeiNFei) levothyroxine tablet 88 mcg 88 mcg, oral, Daily before morning meal, First dose on Wed09/14/25 at 0700 * 0605 (Given - Provider: Lee Ann Rosenthal RFeiN.) sennosides-docusate sodium 8.6-50 mg per tablet 1 tablet (Senokot-S) 1 tablet, oral, 2 times daily, First dose on [facility] 09/13/25 at 2100, Do not give if patient has diarrhea. * 2027 (Given - Provider: Kaylah Bach RFeiN.) * 0851 (Given - Provider: Camelia Bertrand RFeiNFei) sodium chloride 0.9 % injection 3 mL [...] - Reason: Order parameters not met) Medication Order515111/15/2024 Lactated Ringer's 20 mL/hr, intravenous, Continuous, Starting on [facility] 09/13/25 at 1130, PACU & Post-Op * 0326 [...] (Stopped - Provider: Camelia Bertrand R.N.) Medication Order/ acetaminophen tablet 1,000 mg (TylenoL) (CANCELED) 1,000 mg, oral, Every 6 hours PRN, mild pain or score 1-3 of 10, Starting on [facility] 09/13/25 at 1722, For mild pain, give acetaminophen before tramadol. * 1812 (Given - Provider: Camelia Bertrand R.N.) albuterol nebulizer solution 2.5 mg 2.5 mg, nebulization, Every 4 hours PRN, shortness of breath, wheezing, Starting on [facility] 09/13/25 qa3789, Albuterol nebs were interchanged for albuterol MDI (same frequency) benzocaine-menthoL 15-3.6 mg per lozenge 1 lozenge (CepacoL) 1 lozenge, oral, As needed, sore throat, Starting on [facility] 09/13/25 at 1722 BUPivacaine liposome (PF) 20 mL, BUPivacaine 30 mL 50 mL injection (CANCELED) As needed, Starting on [facility] 09/13/25 at 0930, Intra-Op * 0930 (Given - Provider: Neetu Simon M.D., .Ed. - Comment: TAP Block) cyclobenzaprine tablet 10 [...] Manjarrez R.N.) * 1156 (Given - Provider: Ej Manjarrez, R.N.) * 1159 (Given - Provider: Ej Manjarrez, R.N.) * 1208 (Given - Provider: Ej Manjarrez R.N.) granisetron (PF) injection 1 mg (KytriL) (COMPLETED) 1 mg, intravenous, Once as needed, nausea, vomiting, Starting on [facility] 09/13/25 at 1140, For 1 dose, PACU (only), If patient does not respond to ondansetron or haloperidol. (order of antiemetic administration - ondansetron then haloperidol then granisetron) * 1412 (Given - Provider: Xin Martin RGladys.) HYDROmorphone (PF) injection 0.2 mg (Dilaudid) (COMPLETED) 0.2 mg, intravenous, Every 5 min PRN, moderate pain or score 4-6 of 10, severe pain or score 7-10 of 10, Starting on [facility] 09/13/25 at 1140, For 5 doses, PACU (only) * 1255 (Given - Provider: Melba Pro.S.N., R.N.) * 1315 (Given - Provider: Melba Pro.S.N., R.N.) * 1321 (Given - Provider: Jero ProS.N., R.N.) * 1329 (Given - Provider: Melba Pro.S.N., R.N.) * 1335 (Given - Provider: Melba Pro.S.N., R.N.) * 1341 (Given - Provider: Jero ProS.NFei, R.N. - Comment: per Dr. Arndt) NaCl 0.9% infusion 1-999 mL/hr, intravenous, As needed, Between Consecutive Piggyback Medications, Starting on [facility] 09/13/25 at 1412, For 7 days, Infuse at the same rate as the piggyback until tubing clears or up to a volume of 20 mL. Select for IV medication administration when no maintenance IV available or when IV m edications are not compatible with maintenance fluid. NaCl 0.9% infusion 1-999 mL/hr, intravenous, As needed, Post Medications (Hazardous/Low Fluid Volume), Starting on [facility]11/14/24 at 1412, For 7 days, Infuse at the same rate as the medication until tubing cleared of medication, then discard. NaCl 0.9% infusion 1-999 mL/hr, intravenous, As needed, Between Consecutive Piggyback Medications, Starting on [facility] 09/13/25 at 1741, For 7 days, Infuse at the same rate as the piggyback until tubing clears or up to a volume of 20 mL. Select for IV medication administration when no maintenance IV available or when IV m edications are not compatible with maintenance fluid. NaCl 0.9% infusion 1-999 mL/hr, intravenous, As needed, Post Medications (Hazardous/Low Fluid Volume), Starting on [facility]11/14/24 at 1741, For 7 days, Infuse at the same rate as the medication until tubing cleared of medication, then discard. naloxone injection 0.2 mg (Narcan) 0.2 mg, intravenous, As needed, respiratory depression, Starting on [facility] 09/13/25 at 1722, For RASS Score -4 [...] at 1315 * 1317 (Given - Provider: Jero ProS.N., R.N.) oxyCODONE IR tablet 5 mg (Roxicodone)(Linked Group 1) 5 mg, oral, Every 4 hours PRN, moderate pain or score 4-6 of 10, May use if patient can take oral meds and other analgesics are ineffective, Starting on [facility] 09/13/25 at 1315 * 1317 (See Alternative - Provider: Melba Pro.S.N., R.N.) polyethylene glycol powder packet 17 g [...] * 1413 (Given - Provider: Xin Martin RFeiNFei) sodium chloride 0.9 % injection 10 mL 10 mL, intravenous, As needed, line care, Starting on [facility] 09/13/25 at 1722, Peripheral Intravenous Catheter and Rapid Infusion Catheter, prior to blood sampling, post blood transfusion or post blood sampling sodium chloride 0.9 % injection 10 mL 10 mL, intravenous, As needed, line care, Peripheral Intravenous Catheter and Rapid Infusion Catheter, Starting on [facility] 09/13/25 at 1412, Prior to blood sampling, [...]
--- OUTSIDE RECORDS SUMMARY | 2025-09-13 07:15 | XMS_ITS | Encounter Summary ---
Author Organization [facility] Address [address] [place] [address] Care Team Providers Care Bone Cooking Operator Name Role Phone Elsewhere, Pcp Primary Care Provider Unavailabl e Encounter Details DateTypeDepartmentCare Team (Latest Contact Info)Httqoizoxmi83/18/2025 7:15 AM CLINICAL RESEARCH NURSE - 09/13/2025 12:58 PM CSTSurgery RST [facility] MAIN OR [address] [place] [address] Rupert Loving M.D. [address] [place] [address] ROBOTIC-ASSISTED PYELOPLASTY. Social History Tobacco UseTypesPacks/DayYears UsedDateSmoking Tobacco: NeverSmokeless Tobacco: NeverAlcohol UseStandard Drinks/WeekCommentsNever0 (1 standard drink = 0.6 oz pure alcohol)Humiliation, Afraid, Rape, and Kick questionnaireAnswerDate RecordedWithin the last year, have you been afraid of your partner or ex-partner?Patient unable to oxxdjm2109/13/2025Within the last year, have you been humiliated or emotionally abused in other ways by your partner or ex-partner? Patient unable to ehkrkg3409/13/2025Within the last year, have you been kicked, hit, slapped, or otherwise physically hurt by your partner or ex-partner?Patient unable to hhfngr3109/13/2025Within the last year, have you been raped or forced to have any kind of sexual activity by your partner or ex-partner?Patient unable to ucajfb3509/13/2025Hunger Vital SignAnswerDate RecordedWithin the past 12 months, [...] have received?Associate degree: occupational, technical, or vocational zmnskzu6705/27/2020Comments NoSex and Gender InformationValueDate RecordedSex Assigned at BirthFemale 02/19/2025 10:16 AM CDTLegal RlmHelxmn33/02/2017 2:16 PM CSTGender Identity Akvoes7002/19/2025 10:16 AM CDTSexual VwwqpojxmalYtwpexff85/26/2025 10:16 AM CDT documented as of this encounter Last Filed Vital Signs Vital SignReadingTime TakenCommentsBlood Kdtfbyhg225/6609/13/2025 12:45 PM CLINICAL RESEARCH NURSE Hjyms472909/13/2025 12:58 PM IHCHzabpqugcwj57.9 ??C (96.6 ??F)09/13/2025 12:45 PM CSTRespiratory Ftxk089311/14/2024 12:58 PM CSTOxygen Bqfncjjksg27%09/13/2025 12:58 PM CSTInhaled Oxygen Concentration--Oiduao37.9 kg (169 lb 8.5 oz)09/13/2025 6:17 AM KVGEfpzsk494 cm (5' 2.6)09/13/2025 6:17 AM CSTBody Mass Index30.42111/14/2024 6:17 AM CSTdocumented in this encounter Functional Status * Patient VerificationQuestionAnswerDate of AssessmentAuthorBlood transfusion or in past 5 months?No09/13/2025 6:18 AM CSTDillan Randolph M.SFeiN., R.N.Beta Romelia AdministeredNot wihkfaalci44/18/2025 6:18 AM CSTDillan Randolph M.SFeiN., R.N. * Score InterpretationAnswerDate of AssessmentAuthorLow risk09/13/2025 6:04 PM Lori Cordova RFeiN. * Obstructive Sleep Apnea ScreenQuestionAnswerDate of AssessmentAuthorPatient has a diagnosis of obstructive sleep apnea? 6:18 AM CSTDillan Randolph M.SGladys., R.N. * Vital SignsQuestionAnswerDate of AssessmentAuthorRichmond Agitation Sedation Scale (RASS) 12:15 PM Camelia Banks * Faustino ScaleQuestionAnswerDate of AssessmentAuthorSensory Perceptions4 09/14/2025 9:02 AM Camelia Banks LZiphxiad027/19/2025 9:02 AM Camelia Banks VAszvjmwp556/19/2025 9:02 AM Camelia Banks PKczmpxcm268/19/2025 9:02 AM Camelia Banks LCkkxlbfnc170/19/2025 9:02 AM Camelia Banks N Friction and Jigbz23111/15/2024 9:02 AM Camelia Banks NBraden Scale Score20 09/14/2025 9:02 AM Camelia Banks * Advance DirectivesQuestionAnswerDate of AssessmentAuthorAdvance Directive Patient has advance directive, copy not in chart09/13/2025 6:03 PM Lori Cordova, R.N. * Delirium Triage Screen (DTS)QuestionAnswerDate of AssessmentAuthorAsk the patient to spell LUNCH backwards.0-1 error - DTS negative. End of assessment.09/14/2025 9:02 AM Camelia Banks * Activity/MobilityQuestionAnswerDate of AssessmentAuthorRepositioning Sensor Remains in place09/14/2025 9:02 AM Camelia Banks * EvaluationsQuestionAnswerDate of AssessmentAuthorBased on your nursing assessment, would this patient/family benefit from a spiritual care consult fo r spiritual or emotional needs?No09/13/2025 6:04 PM Lori Cordova, R.N. * NPOQuestionAnswerDate of AssessmentAuthorTime of last stasav4793894/18/2025 6:09 AM Dillan Nayak M.S.N., R.N.Date of last opkvkj14340 09/13/2025 6:09 AM Dillan Nayak M.S.Maggie., R.N.Date of last sflrp1698074/18/2025 6:09 AM Dillan Nayak M.S.N., R.N.Time of last msppu6882370/18/2025 6:09 AM Dillan Nayak M.S.N., R.N. * [...] talking to someone)?0 09/13/2025 6:18 AM Dillan Nayak, M.SFeiN., R.N.Has anyone observed you stop breathing or choking/gasping during your sleep? 6:18 AM Dillan Nayak M.SGladys., R.N.Do you have or are being treated for high blood pressure? 6:18 AM Dillan Nayak M.SGladys., R.N.Body Mass Index more than 35 kg/m2? 6:18 AM Dillan Nayak M.S.Maggie., R.N.Age older than 50? 6:18 AM Dillan Nayak M.SGladys., R.N.Is your shirt collar 16 inches/40cm or larger? 6:18 AM Dillan Nayak M.SGladys., R.N.Gender = Male? 6:18 AM Dillan Nayak M.SGladys., R.N.STOP-BANG Total Ywkwc837 6:18 AM Dillan Nayak M.S.Maggie., R.N. * Modified Gusman ScoreQuestionAnswerDate of AssessmentAuthorMotor Activity2 09/13/2025 4:05 PM Chrissy Acevedo R.N.Cszjbpxdeje118/18/2025 4:05 PM CLINICAL RESEARCH NURSE Chrissy Barnes R.N.Qxybzqrzfhvxt876/18/2025 4:05 PM Chrissy Acevedo R.N. Oxygen Vcukcfxzri431/18/2025 4:05 PM Chrissy Acevedo R.N.Modified Gusman Utpbu6397/18/2025 4:05 PM Chrissy Acevedo R.N.Systolic BP 4:05 PM Chrissy Acevedo, R.N. * Audit ScoreAnswerDate of GdhavyyverNffwhk071/18/2025 6:04 PM Lori Cordova, RFeiN. * BMI: Desirable <25, High Risk >30AnswerDate of BtbgawbqzfBjbuvgRutk73/18/2025 2:11 PM Yani Zuniga RFeiN. * Fall RiskQuestionAnswerDate of AssessmentAuthorHave you fallen within the last year or do you fear you might fall?No09/13/2025 6:22 AM Dillan Nayak M.S.N., R.N.Do you use an assisted device to walk? (Walker, cane, wheelchair, crutch)Yes09/13/2025 6:22 AM Dillan Nayak M.S.Maggie., R.N. * Spiritual Care/Loom Changeover Operator AssessmentQuestionAnswerDate of AssessmentAuthorDo you struggle with the loss of meaning or chuckie in your life?No09/13/2025 6:04 PM Lori Cordova, R.N.Do you currently have what you would describe as spiritual or buddhist struggle(s)?No09/13/2025 6:04 PM Lori Cordova, R.N. * Bedside Mobility Assessment Tool (BMAT)QuestionAnswerDate of AssessmentAuthor Mobility Level (calculated)Mobility Level 9:02 AM Camelia Banks NMobility Assessment Level 1: Sit and JillmQhkp95/19/2025 9:02 AM Camelia Banks NMobility Assessment Level 2: Stretch and WipxlEips19/19/2025 9:02 AM Camelia Banks NMobility Assessment Level 3: OvwaoYznx07/19/2025 9:02 AM Camelia Wang NMobility Assessment Level 4: Modified IndependenceFail 09/14/2025 9:02 AM Camelia Banks NMobility Level 1 DevicesL1 - Ceiling Lift 09/14/2025 9:02 AM Camelia Banks NMobility Level 3 DevicesL3 - Gait belt;L3 - Yiabag1509/14/2025 9:02 AM Camelia Banks * Additional Fall Risk IndicationQuestionAnswerDate of AssessmentAuthor Clinically assessed at higher fall risk?Yes09/14/2025 9:02 AM Camelia Banks * AnthropometricsQuestionAnswerDate of AssessmentAuthorBMI (Calculated)30.4 09/13/2025 2:11 PM Yani Zuniga R.N. * Pain AssessmentQuestionAnswerDate of AssessmentAuthorResponse to Interventions Reports no side dwzbzwl6909/14/2025 6:00 AM Lee Ann Smith Location Back09/14/2025 6:00 AM Lee Ann Smith MthefbedptaQwjce00/19/2025 6:00 AM Lee Ann Smith InterventionsMedication (See MAR)09/14/2025 6:00 AM Lee Ann Smith DescriptorsAching;Sharp09/13/2025 5:24 PM Camelia Banks NPlynette GniaeGrsroei59/18/2025 5:24 PM Camelia Banks FrequencyConstant/kaebrfjcly84/18/2025 5:24 PM Camelia Banks Type Acute pain09/14/2025 6:00 AM Lee Ann Smith AClinical ProgressionNot mzwhbte3909/13/2025 5:24 PM Camelia Banks NPain Uujhq68611/15/2024 6:14 AM Lee Ann Bautista A * IntegumentaryQuestionAnswerDate of AssessmentAuthorPreventative Skin Action Prophylactic foam border dressing to sacrum/hccvcd4509/14/2025 9:02 AM Camelia Banks * Sedation ScalesQuestionAnswerDate of AssessmentAuthorSedation Scale Used Lozano Agitation Sedation Scale09/14/2025 9:02 AM Camelia Banks * Waleska Rapp Fall Risk Assessment ScaleQuestionAnswerDate of AssessmentAuthor Last Known Znqu02011/15/2024 9:02 AM Camelia Banks NMobility1; 9:02 AM Cmaelia Banks MOgqdalqiphj027/19/2025 9:02 AM Camelia Banks Mental Status/LOC/Oaypfxwat017/19/2025 9:02 AM Jocelyn Camelia NToileting Qiijl628 9:02 AM Camelia Banks NVolume/Electrolyte Status0 09/14/2025 9:02 AM Camelia Banks NCommunication/Qmeqcbb593 9:02 AM Camelia Banks PTgaplqxl786/19/2025 9:02 AM Camelia Banks NHester Dionte Fall Risk Rdwwu20711/15/2024 9:02 AM Camelia Banks * Fall Risk Scale and AssessmentsQuestionAnswerDate of AssessmentAuthorFall Risk ScaleHester Davis09/14/2025 9:02 AM Camelia Banks * Overall bCAM scoreAnswerDate of WabcqaldcbIvvjcqBphszcjs64/18/2025 8:00 PM Kaylah Montez, R.N. * Brief Confusion Assessment Method (bCAM)QuestionAnswerDate of AssessmentAuthor Feature 1: Altered Mental Status or Fluctuating BfjdecDrkhhokl14/18/2025 8:00 PM Kaylah Clay, R.N. * Audit-C Total Score (max 12)AnswerDate of YogwzorzgcKaskea038/18/2025 6:04 PM Lori Cordova, R.N. * Audit-C Alcohol ScreeningQuestionAnswerDate of AssessmentAuthorHow often do you have a drink containing alcohol? 6:04 PM Lori Cordova, R.N. * Patient PreparationQuestionAnswerDate of AssessmentAuthorPre-Procedure Prep None09/13/2025 6:18 AM Dillan Nayak M.S.N., R.N.Oral Care [place] teeth09/13/2025 6:18 AM Dillan Nayak M.S.N., R.N. * Early Screen for Discharge PlanningQuestionAnswerDate of AssessmentAuthorSelf- rated Walking Gcfoeeudqc980/18/2025 6:05 PM Lori Cordova, R.N.Age in Mfrbe54311/14/2024 6:05 PM Lori Cordova R.N.Prior Living Status0 09/13/2025 6:05 PM Lori Cordova R.N.Stout Disability Score3 09/13/2025 6:05 PM Lori Cordova R.N.ESDP Redrp1354/18/2025 6:05 PM Lori Cordova R.N. * Exparel?? / Zynrelef??QuestionAnswerDate of AssessmentAuthorHave you had a procedure outside of [facility] in the past 4 days? (Select Yes if the patient iswearing an Exparel?? or a Zynrelef?? armband.)No09/13/2025 6:18 AM Dillan Nayak M.SRedd, R.N. * Fall Prevention InterventionsQuestionAnswerDate of AssessmentAuthorUniversal Fall Precautions in PvjroHhw87/19/2025 9:02 AM Camelia Banks NMobility InterventionsAssist device;Gait belt;09/14/2025 9:02 AM Camelia Banks Medication InterventionsDangle at bedside;09/14/2025 9:02 AM Camelia Banks NToileting Needs InterventionsAbsorbent incontinence pads09/14/2025 9:02 AM Camelia Banks NVolume/Electrolyte Status InterventionsEmesis basin within reach;09/14/2025 9:02 AM Camelia Banks NCommunication/Sensory InterventionsAmbient light;Sensory aids on;09/14/2025 9:02 AM Camelia Banks * Delirium Prediction Tool ScoreQuestionAnswerDate of AssessmentAuthorDelirium Surgical Score (Emulsion Operator Use Only)0.0909/14/2025 6:00 AM Ashlyn, Provider Not In * AUDIT-C InterpretationAnswerDate of BontajedjhXdrrmbNslkvfbg83/18/2025 6:04 PM Lori Cordova R.N. documented as of this encounter Mental Status * [place] Coma ScaleQuestionAnswerEntry DateAuthorEye Pbpkxgy830/19/2025 9:02 AM Camelia Banks NBest Motor Xrafceck251/19/2025 9:02 AM Camelia Banks N Best Verbal Epwupgfe461/19/2025 9:02 AM Camelia Banks NGlasgow Coma Scale Ffuye2731/19/2025 9:02 AM Camelia Banks documented in this encounter Discharge Summaries * Neetu Simon M.D., M.Ed. - 09/14/2025 10:34 AM CST DISCHARGE SUMMARY BRIEF OVERVIEW Hospital: [facility] Discharge Provider: Rupert Loving M.D. Primary Team: [facility] Urology Surgery - Fabienne Primary Care Providers: [...] Rupert Loving M.D.Seyer, Amanda K, M.D., M.Ed. [facility] OR DISCHARGE DISPOSITION Home or Self [...] spent in discharge services today: 20 minutes. ICAL RESEARCH NURSE documented in this encounter Discharge Instructions * Discharge Instructions* Dre Barcenas - 09/14/2025 7:37 AM CLINICAL RESEARCH NURSE You were discharged from the [facility] Urology Surgery - [facility]iers Service. Please identify this service nameif you call with questions after hospitalization. ICAL RESEARCH NURSE * Patient Instructions* Janie Sanchez R.N. - 09/14/2025 9:45 AM CLINICAL RESEARCH NURSE [place] [employer] Pathways is a service of the [place] [employer] in partnership with [place]'s Area Agencies on Aging. It is a free service of the [facility] that connects older [place] and their families with the help they need. Call the [place] Aging Pathway Line?? at: [phone] M-F, 8am-4:30pm to connect with specialists that are available to assist you with your specific needs or check out their website at https://[place].gov/aging-pathways/ ICAL RESEARCH NURSE * Attachments The following attachments cannot be sent through Care Everywhere. * Polyethylene Glycol 3350 (By mouth) (Turkish) * Simethicone (By mouth) (Turkish) * Tamsulosin (By mouth) (Turkish) * Trospium (By mouth) (Turkish) documented in this encounter Medications at Time [...] removal appointment 6 tablet 09/14/2025 12:37 PM [facility] tamsulosin (Flomax) 0.4 mg 24 hr capsule [...] & Screen Expiration 09/16/2025 23:59 Testing Location [place] Blood Gas with Coox, Arterial Collection Time: [...] Neetu Simon M.D., M.Ed. 09/14/2025 5:25 AM CLINICAL RESEARCH NURSE ICAL RESEARCH NURSE * Gino Ruiz W - 09/13/2025 7:15 AM CST [facility] Spiritual Care Progress Note Patient: Sun Singh Age:85 y.o. Location: [facility] Reason(s) for encounter: Spiritual support as part of the interdisciplinary care team. Hoahaoism Identification / Spiritual Practices: Dillon. Spiritual Needs and/or Concerns: Mrs. Singh welcomed prayer before surgery. Shared prayer. Spiritual Care interventions: Introduced the role as member of the interdisciplinary care team with the aim of establishing spiritual therapeutic rapport with patient and/or family Facilitated buddhist/spiritual practices (prayer, blessing, sacred texts, buddhist item) with theaim to reinforce patient's spiritual wellness and connection with source of sacredness. Spiritual Care outcomes: Patient/family was appreciative of spiritual care support. Spiritual Care Plan / Recommendations: Will remain available for spiritual care as needed or requested. Chaplains can be contacted by paging [phone] ([place]) or [phone] (Orthodox). ICAL RESEARCH NURSE * Kali Ponce, PharmFeiD., R.Ph. - 09/13/2025 6:22 AM CST Images from the original note were not included. Admission Medication History Note Adherence issues: No concerns Medication list source: Patient Medication related information: -has not taken dabigatran for several months. Per pt and family, script worker will resume dabigatran or another anticoagulant a few weeks after this procedure -off metoprolol for > 1 month -has not started Breyna inhaler yet but just using albuterol at this time -recently completed 2 day course of Bactrim -infrequent use of oxycodone or tizanidine Prior to Admission Medications Med List Status: Pharmacy Complete Set By: Kali Ponce Pharm.D., R.Ph. at 09/13/2025 6:22 AM Taking? Last [...] -- -- -- -- 220 mg daily. ICAL RESEARCH NURSE documented in this encounter Consult Notes * Janie Sanchez R.N. - 09/14/2025 9:44 AM CSTAssociated Order(s): IP CONSULT TO CARE MANAGEMENT Discharge Planning Assessment SUBJECTIVE Assessment Information Referral Data Referral Source: Early Screen for Discharge Planning Referral Name: ESDP 11 Previous Assessment: No Laundry Helper Services Used: No Primary Language: Turkish Laundry Helper Services Used: No Person(s) Present During Interview: patient History of Present Illness #1 Hydronephrosis With Ureteropelvic Junction Obstruction Social History Marital Status: Support System: spouse, children, and friends/neighbors Primary Caregiver: self Social Drivers of Health with Concerns No concerns present OBJECTIVE Finance/Insurance Primary insurance: MEDICARE A AND B Secondary insurance: [employer] benefits: No Advance Directives Legal Decision Maker: Self Advance Directives: Power of Cartographic Technician for health care Advance Directives Status: Not Activated Baseline Functional Status Baseline Activities of Daily Living Mobility: Requires aide of device Dressing: Independent Feeding: Independent Bathing: Independent Grooming: Independent Toileting: Independent Behavior: Appropriate, Calm, Pleasant, Cooperative Communication: Talks, Understands speaking, Understands Turkish Shopping: Needs assistance Medication Management: Independent Housekeeping: [...] Primary Care Physician Family Medicine 03/06/25 Address: [address] [place] [phone] Joann Motta D.O. External Primary Care Physician Family Medicine 04/18/25 Address: [address] [place] [phone] Services/Resources: Housekeeping, Lawn care, Snow removal Additional [...] and Caregiver Arranged: Yes Ride Caregiver Provider: Chauncey grayison Phone Number for Ride/Caregiver: [phone] Anticipated Discharge Destination: Home or Self Care Referrals Initiated: None ASSESSMENT / PLAN ASSESSMENT: The senior engineering tech met with Sun Singh to discuss her [...] been completed by patient, patient's daughter, and mechanical systems control engineer. senior engineering tech met with patient this morning to address [...] provided by her spouse, daughter, and son. poultry hatchery manager reviewed the [facility] Discharge Planning Guide ([id number]) and provided a copy to patient/decision maker. Patient acknowledges understanding of the discharge process, expectations,and potential consequences of non-participation in discharge planning. senior engineering tech provided the [place] [employer]ging Path[employer] handout. - Based on this assessment, no skilled post-hospital discharge care needs have been identified thatrequire the assistance of the Care Management Team. - Patient is not aligned with [facility] Accountable Care Organization ([facility] ACO [place] Registry)and does not qualify for the 3-Day Assisted Facility (SNF) Rule Waiver, allowing admission to a SNF without the standard three-day inpatient hospital stay. If qualified, broad referrals will be sent to facilities within the ACO network if a skilled need has been identified. senior engineering tech recommendations include: discussing needed assistance with family, [...] dismissal will be provided by family--Radha gray ([phone]). senior engineering tech encouraged the patient to reach out with any questions/concerns. Care Management will continue to assess for homegoing needs with the interdisciplinary team. Signed by: Janie Sanchez R.N. 09/14/2025 ICAL RESEARCH NURSE documented in this encounter Nursing Notes * Camelia Bertrand R.N. - 09/14/2025 12:26 PM CST Patient discharged home to self care with belongings via wheelchair. Patient refused transport, a family member pushed patients wheelchair. Went over AVS, all questions answered. Electronically signed by: Camelia Bertrand R.N. 09/14/2025 12:27 PM CLINICAL RESEARCH NURSE ICAL RESEARCH NURSE * Camelia Bertrand R.N. - 09/14/2025 12:26 [...] by: Camelia Bertrand R.N. 09/14/2025 12:26 PM CLINICAL RESEARCH NURSE Problem: Risk for Compromised Skin Integrity-Other Correspondence Clerk(s) Goal: Risk for Compromised Skin Integrity-Other Correspondence Clerk(s) Outcome: Adequate for Discharge Problem: Risk for Compromised Skin Integrity-Faustino Activity Score 3 Goal: Achieve optimal activity to maintain or improve skin integrity. Outcome: Adequate for Discharge ICAL RESEARCH NURSE documented in this encounter OR Notes * Op Note - Neetu Simon M.D., M.Ed. 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 The patient was [...] We closed fascia of the 12 mm operations assistant port under direct visualization with #1 [...] removal in 6 weeks Neetu Simon M.D., M.Luis. Cosigned by Rupert Loving M.D. at 09/18/2025 1:30 PM CLINICAL RESEARCH NURSE ICAL RESEARCH NURSE ICAL RESEARCH NURSE documented in this encounter Miscellaneous Notes * Hospital Course - Neetu Simon M.D., M.Ed. - 09/14/2025 7:00 AM CLINICAL RESEARCH NURSE SURGICAL PROCEDURE: A robotic assisted RIGHT pyeloplasty [...] Results Component Value Date WBC 8.4 09/14/2025 ICAL RESEARCH NURSE ICAL RESEARCH NURSE documented in this encounter Plan of Treatment DateTypeDepartmentCare Team (Latest Contact Info)Achpuecjmxf69/03/2026 8:00 AM CSTProcedure visit Department of Urology in [place], [place] [address] [place] [address] Rupert Loving M.D. [address] [place] [address] NameTypePriorityAssociated DiagnosesOrder ScheduleUS Kidneys Bilateral with BladderImagingRAD - Routine (most inpatients and all outpatients) Hydronephrosis With Ureteropelvic Junction Obstruction Expected: 12/13/2025 (Approximate), Expires: 12/13/2026asic Metabolic PanelLab Routine Hydronephrosis With Ureteropelvic Junction Obstruction Expected: 12/13/2025 (Approximate), Expires: 12/13/2026NameTypePriority Associated DiagnosesOrder ScheduleUrology office visit (clinic)Outpatient ReferralRoutineExpected: 12/13/2025 (Approximate), Expires: 12/13/2026documented as of this encounter Procedures Procedure NamePriorityDate/TimeAssociated DiagnosisCommentsCBC WITHOUT DIFFERENTIAL, LQglzfxe37/19/2025 12:35 AM CLINICAL RESEARCH NURSE BASIC METABOLIC PANEL, S/NLdwdmml34/19/2025 12:35 AM CLINICAL RESEARCH NURSE PULSE OXIMETRY WITH REMOTE MJWJHDNLZnwfjij32/18/2025 6:18 PM CSTPULSE OXIMETRY WITH REMOTE SECDVVCARtgzuzi37/18/2025 6:18 PM CSTADULT OXYGEN THERAPYRoutine 09/13/2025 5:23 PM CSTADULT OXYGEN ITBABSULlidysx87/18/2025 5:23 PM CSTADULT OXYGEN URAFVFMGwzlipw58/18/2025 5:23 PM CSTADULT OXYGEN ZUAXFDAElwmjrr63/18/2025 11:40 AM CSTPATIENT STATUS, EYASPFG98/18/2025 8:32 AM CLINICAL RESEARCH NURSE SODIUM, BSTAT111/14/2024 8:32 AM CLINICAL RESEARCH NURSE ABG W/YRJCDXAL57/18/2025 8:32 AM CLINICAL RESEARCH NURSE POTASSIUM, BSTAT111/14/2024 8:32 AM CLINICAL RESEARCH NURSE GLUCOSE, WHOLE FFKYQPXLP09/18/2025 8:32 AM CLINICAL RESEARCH NURSE CALCIUM, IONIZED, S/BSTAT111/14/2024 8:32 AM CLINICAL RESEARCH NURSE TYPE AND UFMGQAVtlfhpu15/18/2025 8:20 AM CLINICAL RESEARCH NURSE STENT PLACEMENT - PDBWYGMT71/18/2025 7:24 AM CLINICAL RESEARCH NURSE 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 SSVWGAQIIRCW38/18/2025 7:24 AM CLINICAL RESEARCH NURSE 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 ROBOTIC-ASSISTED LJQDAGLKFBZ52/18/2025 7:24 AM CLINICAL RESEARCH NURSE 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 documented in this encounter Results * (ABNORMAL) CBC without Differential (09/14/2025 12:35 AM CLINICAL RESEARCH NURSE)ComponentValueRef RangeTest MethodAnalysis TimePerformed AtPathologist SignatureHemoglobin8.3 (L)11.6 - 15.0 g/dL09/14/2025 12:51 AM VBWFSXBxmpogbioh77.4(L)35.5 - 44.9 % 09/14/2025 12:51 AM CSTDTLErythrocytes2.93(L)3.92 - 5.13 x10(12)/L111/15/2024 12:51 AM MCDHYPYIU84.178.2 - 97.9 fL09/14/2025 12:51 AM CSTDTLRBC Distrib Width14.612.2 - 16.1 %09/14/2025 12:51 AM CSTDTLPlatelet Ppicd353(H)157 - 371 x10(9)/L111/15/2024 12:51 AM CSTDTLLeukocytes8.43.4 - 9.6 x10(9)/L111/15/2024 12:51 AM CSTDTLSpecimen (Source)Anatomical Location / LateralityCollection Method / VolumeCollection TimeReceived TimeBlood (Blood, Venous)09/14/2025 12:35 AM CST09/14/2025 12:44 AM CLINICAL RESEARCH NURSE Narrative Authorizing ProviderResult TypeResult StatusNeetu Simon M.D. M.Ed.LAB BLOOD ADD-ONFinal ResultPerforming OrganizationAddressCity/State/ZIP CodePhone Number [facility] [address] [place] [address], [facility] [place] D[place] [facility] [address] [place] [address] * (ABNORMAL) Basic Metabolic Panel (09/14/2025 12:35 AM CLINICAL RESEARCH NURSE)ComponentValueRef RangeTest MethodAnalysis TimePerformed AtPathologist SignaturePotassium, S5.0 3.6 - 5.2 mmol/L111/15/2024 1:14 AM CSTDTLSodium, S133(L)135 - 145 mmol/L 09/14/2025 1:14 AM CSTDTLChloride, P96307 - 107 mmol/L111/15/2024 1:14 AM CLINICAL RESEARCH NURSE DTLBicarbonate, S21(L)22 - 29 mmol/L111/15/2024 1:14 AM CSTDTLAnion Ams637 - 15 09/14/2025 1:14 AM CSTDTLBUN (Blood [...] (Blood, Venous)09/14/2025 12:35 AM CST09/14/2025 12:59 AM CLINICAL RESEARCH NURSE Narrative Authorizing ProviderResult TypeResult StatusNeetu Simon M.D., MMaryanne.LAB BLOOD ADD-ONFinal ResultPerforming OrganizationAddressCity/State/ZIP CodePhone Number [facility] [address] [place] [address], [facility], [place] DTL [facility] [address] [place] [address] * Patient Status (09/13/2025 8:32 AM CLINICAL RESEARCH NURSE)ComponentValueRef RangeTest Method Analysis TimePerformed AtPathologist IrkowwspfVousxckqjfz97.037.0 deg C 09/13/2025 8:32 AM WOGVJDFOJY68.570.21=AIR09/13/2025 8:32 AM CSTMETHSpecimen (Source)Anatomical Location / LateralityCollection Method / VolumeCollection TimeReceived PbsrNzojm04/18/2025 8:32 AM CST09/13/2025 8:32 AM CLINICAL RESEARCH NURSE Narrative Authorizing ProviderResult TypeResult StatusSoren Alfaro M.D.LAB BLOOD NON ADD-ONFinal ResultPerforming OrganizationAddressCity/State/ZIP CodePhone Number [facility] [address] [place] [address], [facility] [address] [place] [address] * Glucose, Whole Blood (09/13/2025 8:32 AM CLINICAL RESEARCH NURSE)ComponentValueRef RangeTest MethodAnalysis TimePerformed AtPathologist EbfdhwyujTiquvis74281 - 140 mg/dL 09/13/2025 8:33 AM CSTMETHSpecimen (Source)Anatomical Location / Laterality Collection Method / VolumeCollection TimeReceived TimeBlood (Blood, Arterial) 09/13/2025 8:32 AM CST09/13/2025 8:32 AM CLINICAL RESEARCH NURSE Narrative Authorizing ProviderResult TypeResult StatusSoren Alfaro M.D.LAB BLOOD ADD-ON Final ResultPerforming OrganizationAddressty/State/ZIP CodePhone Number [facility] [address] [place] [address], [facility] [address] [place] [address] * Potassium, Blood (09/13/2025 8:32 AM CLINICAL RESEARCH NURSE)ComponentValueRef RangeTest Method Analysis TimePerformed AtPathologist SignaturePotassium, B3.93.6 - 5.2 mmol/L 09/13/2025 8:40 AM CSTMETHSpecimen (Source)Anatomical Location / Laterality Collection Method / VolumeCollection TimeReceived TimeBlood (Blood, Arterial) 09/13/2025 8:32 AM CST09/13/2025 8:32 AM CLINICAL RESEARCH NURSE Narrative Authorizing ProviderResult TypeResult StatusSoren Alfaro M.D.LAB BLOOD NON ADD-ONFinal ResultPerforming OrganizationAddressCity/State/ZIP CodePhone Number [facility] [address] [place] [address] * Sodium, B (09/13/2025 8:32 AM CLINICAL RESEARCH NURSE)ComponentValueRef RangeTest MethodAnalysis TimePerformed AtPathologist SignatureSodium, O831463 - 145 mmol/L111/14/2024 8:33 AM CSTMETHSpecimen (Source)Anatomical Location / LateralityCollection Method / VolumeCollection TimeReceived TimeBlood (Blood, Arterial)09/13/2025 8:32 AM CST09/13/2025 8:32 AM CLINICAL RESEARCH NURSE Narrative Authorizing ProviderResult TypeResult StatusSoren Alfaro M.D.LAB BLOOD NON ADD-ONFinal ResultPerforming OrganizationAddressCity/State/ZIP CodePhone Number [facility] [address] [place] [address] * Calcium, Ionized (09/13/2025 8:32 AM CLINICAL RESEARCH NURSE)ComponentValueRef RangeTest Method Analysis TimePerformed AtPathologist SignatureCalcium, Ionized, B4.804.65 - 5.30 mg/dL09/13/2025 8:40 AM CSTMETHSpecimen (Source)Anatomical Location / LateralityCollection Method / VolumeCollection TimeReceived TimeBlood (Blood, Arterial)09/13/2025 8:32 AM CST09/13/2025 8:32 AM CLINICAL RESEARCH NURSE Narrative Authorizing ProviderResult TypeResult StatusSoren Alfaro M.D.LAB BLOOD NON ADD-ONFinal ResultPerforming OrganizationAddressCity/State/ZIP CodePhone Number [facility] [address] [place] [phone] * (ABNORMAL) Blood Gas with Coox, Arterial (09/13/2025 8:32 AM CLINICAL RESEARCH NURSE)Component ValueRef RangeTest MethodAnalysis TimePerformed AtPathologist FoektuunkmR9684 (H)83 - 108 mm Hg09/13/2025 8:33 AM UOORSICsYC50712 - 45 mm Hg09/13/2025 8:33 AM CSTMETHpH7.397.35 - 7.45 pH09/13/2025 8:33 AM CSTMETHBase Excess-5(L)-2 - 3 mmol/L111/14/2024 8:33 AM JGYKHRLDGV872(L)22 - 26 mmol/L111/14/2024 8:33 AM CLINICAL RESEARCH NURSE METHHemoglobin, B8.7(L)11.6 - 15.0 g/dL09/13/2025 8:33 AM HCDNTEAS7Lp39.794.0 - 98.0 %09/13/2025 8:33 AM CSTMETHCOHb1.1<3.0 %09/13/2025 8:33 AM CSTMETHMetHb 1.2<1.5 %09/13/2025 8:33 AM QWHMETOZjS600.3(L)18.0 - 21.0 vol %09/13/2025 8:33 AM CSTMETHSpecimen (Source)Anatomical Location / LateralityCollection Method / VolumeCollection TimeReceived TimeBlood (Blood, Arterial)09/13/2025 8:32 AM CST09/13/2025 8:32 AM CLINICAL RESEARCH NURSE Narrative Authorizing ProviderResult TypeResult StatusBenvale Alfaro M.D.LAB BLOOD NON ADD-ONFinal ResultPerforming OrganizationAddressCity/State/ZIP CodePhone Number [facility] [address] [place] [address], [place] METH [facility] [address] [place] [address] * Type and Screen (with Reflex Antibody ID) (09/13/2025 8:20 AM CLINICAL RESEARCH NURSE)Component ValueRef RangeTest MethodAnalysis TimePerformed AtPathologist SignatureABORhO PosNot vteuzwxjnc62/18/2025 9:26 AM CSTETRMAntibody ScreenNegativeNegative 09/13/2025 9:40 AM CSTETRMType & Screen Yroipduhpw28/21/2025 23:5909/13/2025 9:26 AM CSTETRMTesting LocationRoche[place] DEFAULT 09/13/2025 8:43 AM CSTETRMSpecimen (Source)Anatomical Location / Laterality Collection Method / VolumeCollection TimeReceived TimeBlood (Blood, Venous) 09/13/2025 8:20 AM CST09/13/2025 8:43 AM CLINICAL RESEARCH NURSE Narrative Authorizing ProviderResult TypeResult StatusBeallie Alfaro M.D.LAB BLOOD BANK TEST ORDERABLESFinal ResultPerforming OrganizationAddressCity/State/ZIP Code Phone Number [facility] [address] [place] [address], [place] ETRM [facility] [address] [place] [address] documented in this encounter Visit Diagnoses Diagnosis [...] acetaminophen before tramadol. Given09/14/2025 6:04 AM CST1,000 zkSovzc1609/14/2025 1:08 AM CST1,000 mg benzocaine-menthoL 15-3.6 mg [...] 1140, PACU (only) Given09/13/2025 12:08 PM CST25 xrzIdacy96/18/2025 11:59 AM CST25 mcgGiven 09/13/2025 11:56 AM [...] 2200 Given09/14/2025 6:04 AM CST5,000 UnitsLeft Lower KlnfytoBlqcf00/18/2025 8:28 PM CST5,000 UnitsLeft Upper Arm (Back) HYDROmorphone (PF) injection 0.2 mg (Dilaudid) 0.2 mg, intravenous, Every 5 min PRN, moderate pain or score 4-6 of 10, severe pain or score 7-10 of 10, Starting on Juliet 09/13/25 at 1140, For 5 doses, PACU (only) Given09/13/2025 1:41 PM CST0.2 kqCfcgs4809/13/2025 1:35 PM CST0.2 mgGiven 09/13/2025 1:29 PM [...] Starting on Juliet 09/13/25 at 1745 Rate/Dose Szvbtw1009/14/2025 6:03 AM YKI126 mL/hrNew Bag09/14/2025 3:27 AM UZM130 mL/hr100 mL/hrRate/Dose Dohbzl0709/13/2025 11:56 PM AYW589 mL/hr levothyroxine tablet 88 mcg 88 mcg, [...] Post Medications (Hazardous/Low Fluid Volume), Starting on [facility]11/14/24 at 1412, For 7 days, Infuse at [...] Post Medications (Hazardous/Low Fluid Volume), Starting on [facility]11/14/24 at 1741, For 7 days, Infuse at [...] patient has diarrhea. Given09/14/2025 8:51 AM CST1 vlajwvLstjb47/18/2025 8:28 PM CST1 tablet simethicone chewable tablet [...] Recently Administered Medications Times are shown in CLINICAL RESEARCH NURSE.Medication Order acetaminophen injection 1,000 mg (COMPLETED) 1,000 [...] Pro.S.N., R.N.) * 1349 (Stopped - Provider: Jero ProS.N., R.N.) acetaminophen tablet 1,000 mg (TylenoL) (COMPLETED) 1,000 mg, oral, Once, On Juliet 09/13/25 at 0615, For 1 dose, Pre-Op, PreOp give in preprocedural area. * 0647 (Given - Provider: Jero CortesS.N., R.N.) acetaminophen tablet 1,000 mg (TylenoL) 1,000 mg, oral, Every 6 hours, First dose (after last modification) on Juliet 09/13/25 at 1900, For mild pain, give acetaminophen before tramadol. * 1836 (Not Given - Provider: Camelia Bertrand RFeiN. - Reason: Other - Comment: order for PRN, new order put meds on a schedule, too close to give) * 0108 (Given - Provider: Lee Ann Rosenthal RGladys.) * 0604 (Given - Provider: Lee Ann Rosenthal RGladys.) cefepime in dextrose (iso osm) IVPB 2 g (Maxipime) (COMPLETED) 2 g, intravenous, at 200 mL/hr, Administer over 30 Minutes, Once, On Juliet 25 at 0615, For 1 dose, Pre-Op, Drug [...] * 2028 (Given - Provider: Kaylah Bach RFeiN.) * [...] 0605 (Given - Provider: Lee Ann Rosenthal RFeiNFei) sennosides-docusate sodium 8.6-50 mg per tablet 1 tablet (Senokot-S) 1 tablet, oral, 2 times daily, First dose on Juliet 09/13/25 at 2100, Do not give if patient has diarrhea. * 2027 (Given - Provider: Kaylah Bach RGladys.) * 0851 (Given - Provider: Camelia Bertrand [...] - Reason: Order parameters not met) Medication Order Lactated Ringer's 20 mL/hr, intravenous, Continuous, Starting [...] (Stopped - Provider: Camelia Bertrand R.N.) Medication Order512// acetaminophen tablet 1,000 mg (TylenoL) (CANCELED) 1,000 mg, oral, Every 6 hours PRN, mild pain or score 1-3 of 10, Starting on Juliet 09/13/25 at 1722, For mild pain, give acetaminophen before tramadol. * 1812 (Given - Provider: Camelia Bertrand R.N.) albuterol nebulizer solution 2.5 mg 2.5 mg, nebulization, Every 4 hours PRN, shortness of breath, wheezing, Starting on Juliet 09/13/25 fz5971, Albuterol nebs were interchanged for albuterol MDI [...] PACU (only) * 1255 (Given - Provider: Kati R Carlos, M.S.N., R.N.) * 1315 (Given - Provider: Kati Gonzalez M.S.Tommy, R.N.) * 1321 (Given - Provider: Kati Gonzalez M.S.Tommy, R.N.) * 1329 (Given - Provider: Kati Gonzalez M.S.Tommy, R.N.) * 1335 (Given - Provider: Jero ProS.Tommy, R.N.) * 1341 (Given - Provider: Kati Gonzalez M.S.NFei, R.N. - Comment: per Dr. Arndt) NaCl [...] Post Medications (Hazardous/Low Fluid Volume), Starting on [facility]11/14/24 at 1412, For 7 days, Infuse at [...] Post Medications (Hazardous/Low Fluid Volume), Starting on [facility]11/14/24 at 1741, For 7 days, Infuse at [...] * 1413 (Given - Provider: Xin Martin RRedd) sodium chloride 0.9 % injection 10 mL [...]
--- OUTSIDE RECORDS SUMMARY | 2025-09-13 07:45 | XMS_ITS | Encounter Summary ---
Author Organization [facility] Address [address] [place] [address] Care Team Providers Care Crew Chief Name Role Phone Elsewhere, Pcp Primary Care Provider Unavailabl e Encounter Details DateTypeDepartmentCare Team (Latest Contact Info)Rkdgghieodi59/18/2025 7:45 AM CSTAncillary Procedure Department of General Surgery Social History Tobacco UseTypesPacks/DayYears UsedDateSmoking Tobacco: NeverSmokeless Tobacco: NeverAlcohol UseStandard Drinks/WeekCommentsNever0 (1 standard drink = 0.6 oz pure alcohol)Humiliation, Afraid, Rape, and Kick questionnaireAnswerDate RecordedWithin the last year, have you been afraid of your partner or ex-partner?Patient unable to ehlzsb3909/13/2025Within the last year, have you been humiliated or emotionally abused in other ways by your partner or ex-partner? Patient unable to givmcy3209/13/2025Within the last year, have you been kicked, hit, slapped, or otherwise physically hurt by your partner or ex-partner?Patient unable to xjmobf0109/13/2025Within the last year, have you been raped or forced to have any kind of sexual activity by your partner or ex-partner?Patient unable to ffznho2909/13/2025Hunger Vital SignAnswerDate RecordedWithin the past 12 months, [...] have received?Associate degree: occupational, technical, or vocational ohtwrkc7405/27/2020Comments NoSex and Gender InformationValueDate RecordedSex Assigned at BirthFemale 02/19/2025 10:16 AM CDTLegal XruLaiqrr78/02/2017 2:16 PM CSTGender Identity Oqqhhe9402/19/2025 10:16 AM CDTSexual JsqfysllbtyLbtywezo09/26/2025 10:16 AM CDT documented as of this encounter Plan of Treatment DateTypeDepartmentCare Team (Latest Contact Info)Hvbznxssxqe66/03/2026 8:00 AM CSTProcedure visit Department of Urology in [place], [place] [address] [place] [address] Rupert Loving M.D. [address] [place] [address] documented as of this encounter Procedures Procedure NamePriorityDate/TimeAssociated DiagnosisCommentsSURGERY IMAGE EXAM Tmznfru6809/13/2025 7:45 AM SHEET WRITER documented in this encounter Results * ROBOT-Surgery Image Exam (09/13/2025 7:45 AM SHEET WRITER)Specimen (Source)Anatomical Location / LateralityCollection Method / VolumeCollection TimeReceived Time 09/13/2025 7:42 AM SHEET WRITER Narrative [facility] - 09/13/2025 11:23 AM SHEET WRITER This order has been created and auto-finalized [...]
--- OUTSIDE RECORDS SUMMARY | 2025-09-13 07:54 | XMS_ITS | Encounter Summary ---
Author Organization [facility] Address [address] [place] [address] Care Team Providers Care Communications Controller Name Role Phone Elsewhere, Pcp Primary Care Provider Unavailabl e Encounter Details DateTypeDepartmentCare Team (Latest Contact Info)Jpvnwxworjg78/18/2025 7:54 AM CSTAnesthesia Event [facility] [address] [place] [phone] Soren Alfaro M.D. [address] [place] [phone] Lam Manriquez APRN, SALES SUPPORT ENGINEER, DNAP [address] [place] [phone] Anesthesia Record Procedure NameResponsible AnesthesiologistAnesthesia Start TimeAnesthesia Stop TimeROBOTIC-ASSISTED PYELOPLASTY. (Right)Soren Alfaro M.D.09/13/25 0754 09/13/25 1775WwzkCepuBhqxqVmzrrmo04/18/61280152It StartMachine/Equipment Checked Infection Precautions Followed Procedure/Site Verified NPO Status Verified Supine Standard ASA Monitors Ixedkej9473Cc Sxbbicxbm4941Cy Arjqimffab1041C&S ScanType and Screen Blood Label Created with Armband Scan.0820Lab Qfhre5142 Turnover to Lbvbktciiraie4075Efcf Uwlff3830Cxe Lkyqmaarqgdl9896Jhsx Lne6662 Turnover to ANE Xusbp2377Rzbuci Removal Criteria Eea1101Kvmxzqsnjd/Airway Nneyjhr7634pq stop smge0878Iy EndI completed my handoff to the receiving staff during which we 1. Identified the patient 2. Identified the responsible provider 3. Reviewed the pertinent medical history 4. Discussed the surgical course 5. Reviewed intra-op anesthesia management and issues during anesthesia 6. Set expectations for post-procedure period 7. Allowed opportunity for questions and acknowledgement of understanding.* NameTotalfentanyl injection 50 mcg/mL250 mcg lidocaine 2% (mg) slyeanxzs60 mgrocuronium 10 mg/mL bbiuyfokg28 mgePHEDrine PF 5 mg/mL syringe becqsotdi67.5 mgondansetron 4 mg/2 mL injection4 mgsugammadex 100 mg/mL wvzkoqrbq965 mgpropofol 10 mg/mL gdzgurghx515 mgaprepitant (Aponvie) injection 32 mg/4.4 mL (7.2 mg/mL)32 mgcefepime in dextrose (iso osm) IVPB 2 g (Maxipime)2 gheparin (porcine) injection 5,000 Units5,000 Unitsfurosemide (Lasix) injection 10 mg/mL20 mglabetaloL injection 5 mg/mL30 mgLactated Ringers Free Drip1,500 mLlactated ringers free ooge027 mL * Agents No agents on file. * Blood No blood administrations on file. ZotiFdqpokyGxezhhhfuHmzslcmWofuw85/18/25; N; Surgical; Laparoscopic; 5; Abdomen; Upper, Right; Mid, Right; Lower, Right; Ogriuakbyi04/18/25 0000 by Radha Camacho, R.N.Zujebinqwwj27/04/25; 1126; Right; Back; 10.2 Fr.; Yes; No longer in place (removed in surgery per Ej AQUATIC PERFORMER and Op Note.)08/30/25 1126 by Aster Marcano, R.N.09/13/25 1200 by Kati Gonzalezwelling Urinary CatheterPlacement Date: 09/13/25; Inserted by: Dr. Simon; Size: 16 Fr.; Balloon Size: 5 mL (10 cc in the balloon); Urine Returned: Yes; Removal Date: 09/14/25; Removal Time: 819; Removal Reason: Per order09/13/25 0000 by Radha Camacho, R.NFei09/14/25 0820 by Huber, ViriClosed/Suction Drain09/13/25; 1; RLQ; 16 Fr.; 1; Per order; Camelia RN09/13/25 0000 by Radha Camacho RFeiNFei09/14/25 1050 by Camelia Bertrand NPeripheral IVPlacement Date: 09/13/25; Placement Time: 0611; Catheter Size: 18 G; Orientation: Left, Posterior; Location: Forearm; Site Prep: Chlorhexidine (Preferred); Technique: Anatomical landmarks; Insertion A ttempts: 1; Removal Date: 09/14/25; Removal Time: 1227; Removal Reason: Patient nowlaiykme81/18/25 0611 by Marcia aMn RFeiNFei09/14/25 1227 by Camelia Bertrand NETTPlacement Date: 09/13/25; Placement Time: 0804 (created via procedure documentation); Mask Ventilation: Easy mask; Technique: Video laryngoscopy; Type: Standard ETT; Single Lumen Tube Size: 7 mm; Cuffed: Yes; Location: Oral; Grade View: Grade 1; Insertion Attempts: 1; Placement Verification: Bilateral breath sounds, Positive ETCO2, Symmetrical chest wall movement; Removal Date: 09/13/25; Removal Time: [id number] 0804 by Milena Luz, R.N.09/13/25 1128 by Milena Luz, R.N.NG/OG Tube09/13/25; 0805; Orogastric; 16 Fr; Oral; Center; 09/13/25; 07223111/14/24 0805 by Milena Luz, R.N.09/13/25 1107 by Milena Luz, R.N.Arterial LinePlacement Date: 09/13/25; Placemnt Time: 0814 (created via procedure documentation); Size: 20 G; Orientation: Left; Location: Radial; Site Prep: Chlorhexidine (Preferred); Technique: Anatomical landmarks; Insertion Attempts: 1; Securement: Securement dressing, Securement device; Removal Date: 09/13/25; Removal Time: 1551; Removal Reason: Per order 09/13/25 0814 by Milena Luz, R.NFei09/13/25 1551 by Xin Martin R.N. Peripheral IVPlacement Date: 09/13/25; Placement Time: 822; Catheter Size: 18 G; Orientation: Right; Location: Hand; Removal Date: 09/14/25; Removal Time: 1226; Removal Reason: Patient vyfkoyjcyq82/18/25822 by Milena Luz RFeiNFei09/14/251226 by Camelia Bertrand Ndocumented in this encounter Social History Tobacco UseTypesPacks/DayYears UsedDateSmoking Tobacco: NeverSmokeless Tobacco: NeverAlcohol UseStandard Drinks/WeekCommentsNever0 (1 standard drink = 0.6 oz pure alcohol)Humiliation, Afraid, Rape, and Kick questionnaireAnswerDate RecordedWithin the last year, have you been afraid of your partner or ex-partner?Patient unable to ifpsdm2009/13/2025Within the last year, have you been humiliated or emotionally abused in other ways by your partner or ex-partner? Patient unable to fnvxhh1409/13/2025Within the last year, have you been kicked, hit, slapped, or otherwise physically hurt by your partner or ex-partner?Patient unable to rrqnmp1809/13/2025Within the last year, have you been raped or forced to have any kind of sexual activity by your partner or ex-partner?Patient unable to hvesig9209/13/2025Hunger Vital SignAnswerDate RecordedWithin the past 12 months, [...] RecordedIn the past 12 months has the [employer], gas, oil, or water [employer] threatened to shut off services in your home?No09/13/2025Housing StabilityAnswerDate RecordedWhat is your living situation today?I have a steady place to live09/13/2025EducationAnswerDate RecordedWhat is the highest level of school you have completed or the highest degree you have received?Associate degree: occupational, technical, or vocational itrpuoa3405/27/2020Comments NoSex and Gender InformationValueDate RecordedSex Assigned at BirthFemale 02/19/2025 10:16 AM CDTLegal KhlOcafyq26/02/2017 2:16 PM CSTGender Identity Dsmved4202/19/2025 10:16 AM CDTSexual GzwdvdcxoseKlvyhggp74/26/2025 10:16 AM CDT documented as of this encounter OR Notes * Anesthesia Postprocedure Evaluation - Santos Alvarado M.D. - 09/13/2025 3:53 PM CST Patient: Sun Singh Procedure Summary Date: 09/13/25 Room / Location: [address] Critical access hospital / [facility] in [place], [place] Anesthesia Start: 0754 Anesthesia Stop: 1146 Procedures: ROBOTIC-ASSISTED PYELOPLASTY. (Right) URETEROSCOPY. (Right) STENT PLACEMENT - INTERNAL (Right) Diagnosis: 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 (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 [N13.1].) Providers: Rupert Loving M.D. Responsible Provider: Soren Alfaro M.D. Anesthesia Type: general ASA Status: 3 Anesthesia Type: general Last vitals Vitals Value Taken Time BP 218/78 09/13/25 15:45 Temp 36.5 ??C 09/13/25 13:20 Pulse 56 09/13/25 15:52 Resp 5 09/13/25 15:52 SpO2 95 % 09/13/25 15:52 Vitals shown include unfiled device data. Please reference Vitals flowsheet for most recent vital signs. Anesthesia Post Evaluation Cardiovascular status: hemodynamics (HR & BP) acceptable Respiratory status: patent airway with spontaneous effort Temperature: normothermic Oxygen requirements: room air Level of consciousness: awake Pain score: pain adequately controlled and/or at baseline Post Op nausea/vomiting: none Hydration status: euvolemic Comments: On arrival this morning blood pressures were 185/59. She was hypertensive throughout the case and remained hypertensive in the recovery room. She states she has white coat hypertension and her blood pressures are more normal at home. Review or records show significant hypertension on multiple ED visits over the last several months. Has continued to have pain at the site of her drain. She feels pain is improving. Most recent blood pressure 183/75. Will likely need further work up for hypertension once her acute issues are settled. Notable Events No notable events documented. OWS SOFTWARE DEVELOPER * Anesthesia Procedure Notes - Milena Luz R.N. - 09/13/2025 8:15 AM CSTAssociated Order(s): Airway Airway Date/Time: 09/13/2025 8:04 AM Performed by: Milena Luz R.N. Authorized by: Soren Alfaro M.D. Patient location during procedure: OR / Procedure Area PROCEDURE DETAILS: Mask difficulty assessment: easy mask Final airway type: video laryngoscope Laryngeal Manipulation: no Final best view of glottic structures - Cormack/Lehane Score: grade 1 ETT location: oral VL device: glide scope [place] scope blade size: 3 Tube size: 7 ETT distance at teeth/gum: 21 Oral tube type: standard ETT Cuffed: yes Number of attempt to successful placement: 1 Airway confirmation: bilateral breath sounds, positive ETCO2 and bilateral chest rise Other previous techniques attempted: none PRE PROCEDURE DETAILS: Pre evaluation for airway management: procedure Urgency: elective Preop assessment of probable difficulty: no difficulty anticipated Preoxygenation: bag valve mask SEDATION / ANESTHESIA Anesthesia method: anesthesia POST PROCEDURE DETAILS: Procedure outcome: successful Notable Events: no complications ATTESTATION STATEMENT A resident or fellow participated in the procedure, and the advertising sales consultant was present for the entire procedure. OWS SOFTWARE DEVELOPER * Anesthesia Procedure Notes - Milena Luz R.N. - 09/13/2025 8:14 AM CSTAssociated Order(s): Invasive Catheter Invasive Catheter Date/Time: 09/13/2025 8:14 AM Performed by: Milena Luz R.N. Authorized by: Soren Alfaro M.D. Location: OR PROCEDURE DETAILS: Line type: arterial Laterality: left Location: radial Location details: new site Age group: adult Catheter diameter: 20 Ga Technique: palpation Monitored: yes Number of attempts: 1 UNIVERSAL PROTOCOL All relevant documentation and testing [...] and confirmed in a procedural pause. PRE-PROCEDURE DETAILS: Appropriate hand hygiene, gown, cap, mask, protective eyewear, sterile gloves, skin preparation, sterile drape, and strict aseptic technique were utilized as applicable for the procedure.: yes Skin preparation: chlorhexidine SEDATION / ANESTHESIA Anesthesia method: anesthesia POST-PROCEDURE DETAILS: Procedure completed successfully: yes Line secured: secured with sutureless device Chlorhexidine disc around insertion site and under catheter with slight turn: yes Notable Events - arterial: none ATTESTATION STATEMENT A resident or fellow participated in the procedure, and the advertising sales consultant was present for the entire procedure. Cosigned by Soren Alfaro M.D. at 09/13/2025 8:33 AM WINDOWS SOFTWARE DEVELOPER OWS SOFTWARE DEVELOPER OWS SOFTWARE DEVELOPER * Anesthesia Preprocedure Evaluation - Soren Alfaro M.D. - 09/13/2025 7:43 AM CST Preprocedure Anesthesia & H&P Assessment Procedure Summary Date/Time: 09/13/25 0715 Procedures: ROBOTIC-ASSISTED PYELOPLASTY. (Right) URETEROSCOPY. (Right) Diagnosis: 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 [N13.1] Pre-op diagnosis: 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 [N13.1]. Location: [facility] / [facility] in [place], [place] Providers: Rupert Loving M.D. Pertinent components of the patient's history including current problem list, medical history, surgical history, family history, social history, medications and allergies were reviewed. Present illness and pre-op diagnosis were confirmed. The planned surgery / procedure was verified with the patient / legal guardian. The patient's general health condition remains unchanged RELEVANT COMORBID CONDITIONS CV (+) Atrial Fibrillation Paroxysmal (HCC) (+) Hypertension NOS (+) Hypertensive Chronic Kidney Disease With Stage 5 Chronic Kidney Disease Or End Stage Renal Disease (HCC) (+) Unspecified Diastolic (Congestive) Heart Failure (HCC) RESP (+) Asthma (HCC) RENAL/REPRO (+) Chronic Kidney Disease (CKD), Stage 3 Unspecified (HCC) (+) Hypertensive Chronic Kidney Disease With Stage 5 Chronic Kidney Disease Or End Stage Renal Disease (HCC) ENDO (+) Hypothyroidism NEURO (+) Transient Ischemic Attack GI (+) Gastroesophageal Reflux Disease HEME (+) Anemia In Chronic Kidney Disease Other (+) Obesity Body Mass Index 30-39.9 Adult OBJECTIVE PHYSICAL EXAMINATION Airway (HEENT) Mallampati: II TM Distance: >3 FB Neck ROM: Full Mouth Opening: >3 cm Cardiovascular Rhythm: Regular Rate: Normal Cardiovascular Assessment: cardiovascular normal Functional Capacity: <4 METS Pulmonary Pulmonary Assessment: Non labored General / Constitutional Constitutional Assessment: Normal General State of Health:: calm Dental Dental Assessment: upper dentures ASSESSMENT / PLAN ANESTHESIA PLAN ASA: 3 Anesthesia Plan: general Patient seen and allergies reviewed, anesthesia plan and risks discussed directly with patient /legal guardian or through an check viewer. Risks/Benefits/Alternatives of Blood transfusion discussed with patient / legal guardian, includingan opportunity to ask questions and/or decline some or all transfusion therapies. The patient / legal guardian consented to the use of all blood products, as deemed medically necessary Approval to Proceed: approved for anesthesia OWS SOFTWARE DEVELOPER documented in this encounter Plan of Treatment DateTypeDepartmentCare Team (Latest Contact Info)Gfocvhpnwbd30/03/2026 8:00 AM CSTProcedure visit Department of Urology in [place], [place] [address] [place] [phone] Rupert Loving M.D. [address] [place] [phone] documented as of this encounter Procedures Procedure NamePriorityDate/TimeAssociated DiagnosisCommentsLDA ANE ARTERIAL LINE CAOXGSRSVPcwaxie27/18/2025 8:14 AM WINDOWS SOFTWARE DEVELOPER [place] ARTL CATH/CNULA MONITOR CNTTHftwgpo30/18/2025 8:14 AM WINDOWS SOFTWARE DEVELOPER LDA ANE ENDOTRACHEAL MRUGPFKccejiz35/18/2025 8:04 AM WINDOWS SOFTWARE DEVELOPER documented in this encounter Results * [place] ARTL CATH/CNULA MONITOR PERC, LDA ANE ARTERIAL LINE INSERTION (09/13/2025 8:14 AM WINDOWS SOFTWARE DEVELOPER) Narrative Soren Alfaro M.D. - 09/13/2025 8:14 AM WINDOWS SOFTWARE DEVELOPER Soren Alfaro M.D. 09/13/2025 8:33 AM Invasive Catheter Date/Time: 09/13/2025 8:14 AM Performed by: Milena Luz R.N. Authorized by: Soren Alfaro M.D. ?? Location: OR PROCEDURE DETAILS: Line type: arterial ?? Laterality: left Location: radial Location details: new site ? Age group: adult Catheter diameter: 20 Ga Technique: palpation ?? Monitored: yes ?? Number of attempts: 1 UNIVERSAL PROTOCOL All relevant documentation and testing [...] and confirmed in a procedural pause. PRE-PROCEDURE DETAILS: Appropriate hand hygiene, gown, cap, mask, protective eyewear, sterile gloves, skin preparation, sterile drape, and strict aseptic technique were utilized as applicable for the procedure.: yes ?? Skin preparation: chlorhexidine ?? SEDATION / ANESTHESIA Anesthesia method: anesthesia POST-PROCEDURE DETAILS: Procedure completed successfully: yes ?? Line secured: secured with sutureless device Chlorhexidine disc around insertion site and under catheter with slight turn: yes ?? Notable Events - arterial: none ATTESTATION STATEMENT A resident or fellow participated in the procedure, and the advertising sales consultant was present for the entire procedure. Authorizing ProviderResult TypeResult Gunjan Alfaro M.D.PROCEDURE/MINOR SURGICAL ORDERABLESFinal Result * LDA ANE ENDOTRACHEAL AIRWAY (09/13/2025 8:04 AM WINDOWS SOFTWARE DEVELOPER) Narrative Milena Luz R.N. - 09/13/2025 8:04 AM WINDOWS SOFTWARE DEVELOPER Milena Luz R.N. 09/13/2025 8:15 AM Airway Date/Time: 09/13/2025 8:04 AM Performed by: Milena Luz R.N. Authorized by: Soren Alfaro M.D. ?? Patient location during procedure: OR / Procedure Area PROCEDURE DETAILS: Mask difficulty assessment: easy mask Final airway type: video laryngoscope Laryngeal Manipulation: no ?? Final best view of glottic structures - Cormack/Lehane Score: grade 1 ETT location: oral VL device: glide scope [place] scope blade size: 3 Tube size: 7 ETT distance at teeth/gum: 21 Oral tube type: standard ETT Cuffed: yes Number of attempt to successful placement: 1 Airway confirmation: bilateral breath sounds, positive ETCO2 and bilateral chest rise Other previous techniques attempted: none PRE PROCEDURE DETAILS: Pre evaluation for airway management: procedure Urgency: elective Preop assessment of probable difficulty: no difficulty anticipated Preoxygenation: bag valve mask SEDATION / ANESTHESIA Anesthesia method: anesthesia POST PROCEDURE DETAILS: ? Procedure outcome: successful ?? Notable Events: no complications ATTESTATION STATEMENT A resident or fellow participated in the procedure, and the advertising sales consultant was present for the entire procedure. Authorizing ProviderResult TypeResult StatusSoren Alfaro M.D.ANESTHESIA ORDERABLESFinal Result documented in this encounter Visit Diagnoses Not on filedocumented in this encounter Administered Medications Medication OrderMAR ActionAction DateDoseRateSite aprepitant injection (Aponvie) intravenous, As needed, Starting on Julite 09/13/25 at 0802, Anesthesia Intra-op Given09/13/2025 8:02 AM CST32 mg cefepime in dextrose (iso osm) IVPB 2 g (Maxipime) 2 g, intravenous, at 200 mL/hr, Administer over 30 Minutes, Once, On Juliet 09/13/25 at 0615, For 1 dose, Pre-Op, Drug Monitoring Program: Pharmacist to adjust medication dosing based on indication and drug clearance factors., Indications: Prophylaxis, surgical Indications:Prophylaxis, besxlyibMqubs71/18/2025 8:35 AM CST2 g ePHEDrine (PF) injection intravenous, As needed, Starting on Juliet 09/13/25 at 0836, Anesthesia Intra-op Given09/13/2025 9:56 AM CST5 hhKnwkv5609/13/2025 8:56 AM CST2.5 jxEnfmt3909/13/2025 8:42 AM CST2.5 mg fentaNYL injection (Sublimaze) intravenous, As needed, Starting on Juliet 09/13/25 at 0800, Anesthesia Intra-op Given09/13/2025 9:46 AM CST50 sbsNbupy32/18/2025 9:19 AM CST50 mcgGiven 09/13/2025 8:27 AM CST50 mcg furosemide injection (Lasix) intravenous, As needed, Starting on Juliet 09/13/25 at 0936, Anesthesia Intra-op Given09/13/2025 9:36 AM CST20 mg heparin (porcine) injection 5,000 Units 5,000 Units, subcutaneous, Once, On Juliet 09/13/25 at 0800, For 1 dose, Intra-Op, Administer prior toinduction of anesthesia. Given09/13/2025 8:25 AM CST5,000 Units labetaloL injection intravenous, As needed, Starting on Juliet 09/13/25 at 1122, Anesthesia Intra-op Given09/13/2025 11:32 AM CST10 anRdqgx9509/13/2025 11:30 AM CST5 dzItrbt3509/13/2025 11:28 AM CST5 mg Lactated Ringer's intravenous, Continuous Infusion: Per Instructions PRN, Starting on Juliet 09/13/25 at 0758, Anesthesia Intra-op New Bag09/13/2025 8:41 AM CSTNew Bag09/13/2025 7:58 AM WINDOWS SOFTWARE DEVELOPER Lactated Ringer's intravenous, Continuous Infusion: Per Instructions PRN, Starting on Juliet 12/18/25 at 0825, Anesthesia Intra-op New Bag09/13/2025 8:25 AM WINDOWS SOFTWARE DEVELOPER lidocaine (PF) (cardiac) injection intravenous, As needed, Starting on Juliet 09/13/25 at 0800, Anesthesia Intra-op Given09/13/2025 8:00 AM CST80 mg ondansetron (PF) injection (Zofran) intravenous, As needed, Starting on Juliet 09/13/25 at 1109, Anesthesia Intra-op Given09/13/2025 11:09 AM CST4 mg propofoL injection (Diprivan) intravenous, As needed, Starting on Juliet 09/13/25 at 0800, Anesthesia Intra-op Given09/13/2025 11:00 AM CST20 yfDzlem8709/13/2025 9:42 AM CST20 wrNfzrx1809/13/2025 9:38 AM CST20 mg rocuronium injection (Zemuron) intravenous, As needed, Starting on Juliet 09/13/25 at 0801, Anesthesia Intra-op Given09/13/2025 10:33 AM CST10 kyWsext0509/13/2025 9:08 AM CST20 gqHldvi2409/13/2025 8:01 AM CST50 mg sugammadex injection (Bridion) intravenous, As needed, Starting on Juliet 09/13/25 at 1122, Anesthesia Intra-op Given09/13/2025 11:22 AM WXG497 mgdocumented in this encounter Care Teams Team MemberRelationshipSpecialtyStart DateEnd Date Elsewhere, Pcp PCP - GeneralInternal Medicine04/18/25documented as of this encounter
--- OUTSIDE RECORDS SUMMARY | 2025-09-26 14:39 | XMS_ITS | Encounter Summary ---
Author Organization [facility] Address [address] [place] [address] Care Team Providers Care Hoop Punch And Coiler Operator Name Role Phone Elsewhere, Pcp Primary Care Provider Unavailabl e Encounter Details DateTypeDepartmentCare Team (Latest Contact Info)Deaqldzxvvy94/08/2025Orders Only Department of Urology in [place], [place] [address] [place] [address] Madiha Loza R.NFei Feeling Of Incomplete Bladder Emptying (Primary Dx); Hydronephrosis Social History Tobacco UseTypesPacks/DayYears UsedDateSmoking Tobacco: NeverSmokeless Tobacco: NeverAlcohol UseStandard Drinks/WeekCommentsNever0 (1 standard drink = 0.6 oz pure alcohol)[facility] UtilitiesAnswerDate RecordedIn the past 12 months has the electric, gas, oil, or water [employer] threatened to shut off services in your [...] 05/27/2020CommentsNoSex and Gender InformationValueDate RecordedSex Assigned at YyhnyMsxxth82/26/2025 10:16 AM CDTLegal XzeNzxvpw61/02/2017 2:16 PM CSTGender MbsbwanjTgsqie28/26/2025 10:16 AM CDTSexual OrientationStraight 02/19/2025 10:16 AM CDTdocumented as of this encounter Plan of Treatment DateTypeDepartmentCare Team (Latest Contact Info)Svvslkncfjc81/03/2026 8:00 AM CSTProcedure visit Department of Urology in [place], [place] [address] [place] [address] Rupert Loving M.D. [address] [place] [address] documented as of this encounter Visit Diagnoses Diagnosis Feeling Of Incomplete Bladder Emptying- Primary Hydronephrosis documented in this encounter Care Teams Team MemberRelationshipSpecialtyStart DateEnd Date Elsewhere, Pcp PCP - GeneralInternal Medicine04/18/25documented as of this encounter
--- OUTSIDE RECORDS SUMMARY | 2025-09-26 14:39 | XMS_ITS | Encounter Summary ---
Author Organization [facility] Address [address] [place] [address] Care Team Providers Care English Horn Player Name Role Phone Elsewhere, Pcp Primary Care Provider Unavailabl e Encounter Details DateTypeDepartmentCare Team (Latest Contact Info)Nrwwtzknzmb70/16/2025Orders Only Department of Urology in [place], [place] [address] [place] [address] Zandra Romero, R.N. Obstruction Kidney; Chronic Kidney [...] of your partner or ex-partner?Patient unable to uhaldi5709/13/2025Within the last year, have you been humiliated or emotionally abused in other ways by your partner or ex-partner? Patient unable to wgalre0209/13/2025Within the last year, have you been kicked, hit, slapped, or otherwise physically hurt by your partner or ex-partner?Patient unable to skjsft5509/13/2025Within the last year, have you been raped or forced to have any kind of sexual activity by your partner or ex-partner?Patient unable to kgqgcu4909/13/2025Hunger Vital SignAnswerDate RecordedWithin the past 12 months, [...] have received?Associate degree: occupational, technical, or vocational hqastmz8605/27/2020Comments NoSex and Gender InformationValueDate RecordedSex Assigned at BirthFemale 02/19/2025 10:16 AM CDTLegal RghPqcqcb14/02/2017 2:16 PM CSTGender Identity Lohhan0002/19/2025 10:16 AM CDTSexual EbwjenurelyUkpxbeel11/26/2025 10:16 AM CDT documented as of this encounter Plan of Treatment DateTypeDepartmentCare Team (Latest Contact Info)Hmuhbpovhzv58/03/2026 8:00 AM CSTProcedure visit Department of Urology in [place], [place] [address] [place] [address] Rupert Loving M.D. [address] [place] [address] documented as of this encounter Visit Diagnoses Diagnosis Obstruction Kidney Chronic Kidney Disease (CKD), Stage 3b Glomerular Filtration Rate (GFR) 30 To 44 (HCC) 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 documented in this encounter Care Teams Team MemberRelationshipSpecialtyStart DateEnd Date Elsewhere, Pcp PCP - GeneralInternal Medicine04/18/25documented as of this encounter
--- OUTSIDE RECORDS SUMMARY | 2025-09-26 14:39 | XMS_ITS | Clinical Summary ---
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 For routine questions regarding patient records, call [phone] during business hours, M-F 8:00 AM - 5:00 PM Central Time. Record requests for emergency care only can be directed to [phone] at any time.[facility] Allergies Active AllergyReactionsCriticalityNoted DateCommentsAce InhibitorsCough 10/22/2006mlodipineEdema (Reselect Reaction)02/06/2025pixabanDiarrhea 07/09/2022at DanderWheezing (Reselect Reaction)01/31/2015House DustOther (see comments)01/31/20156136MezhjqjpaqqLnkd63/26/1730SwpvqnxuppbqJmokWlsx13/09/2025 MetoprololPalpitations,Edema (Reselect Reaction),GI cjevliurqjz80/05/2009 Reflux, leg swelling Medications MedicationSigDispense QuantityRefillsLast FilledStart [...] removal appointment 6 tablet 09/14/2025 12:37 PM CST/6Active oxyCODONE (Roxicodone) 5 mg immediate release tablet Take 5 mg by mouth every 4 (four) hours as needed./ Discontinued(Duplicate order) cyclobenzaprine (FlexeriL) 10 mg tablet Take 10 mg by mouth at bedtime as needed./Discontinued albuterol 2.5 mg /3 mL nebulizer solution Inhale 2.5 mg every 4 (four) hours as needed.Discontinued sulfamethoxazole-trimethoprim (Bactrim DS) 800-160 mg per tablet Indications:Obstruction Kidney,Chronic Kidney Disease (CKD), Stage 3b Glomerular Filtration Rate (GFR) 30 To 44 (HCC),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Take 1 tablet by mouth as directed. Take 1 tablet 1-2 hours prior to nephrostomy tube exchanges. 6 tablet 10:14 AM CDT06/04/2025Discontinued cephalexin (Keflex) 250 mg capsule Take 1 capsule by mouth 2 (two) times a day./12/2024Discontinued sulfamethoxazole-trimethoprim (Bactrim DS) 800-160 mg per tablet [...] Problems ProblemNoted DateDiagnosed DateHydronephrosis With Ureteropelvic Junction Qtwfojwbeyh83/18/1950Qspvxxnjfjrm24/04/2025Obstruction Hnhcug4603/06/2025Dry Eye Syndrome Nxsfmtwyp26/10/2025Pain Low Back Qwxvgyh2503/06/2025nemia In Chronic Kidney Hthbtqr3603/05/2025 Overview (03/06/2025): Baseline hemoglobin in the mid tens-11 range. Ferritin 125 in April 2023 Most recent hemoglobin 10.5 from December 2023. Chronic Kidney Disease (CKD), Stage 3 Mbwsoalbdlu33/09/2025 Overview (08/30/2025): Creatinine 0.9-1.1 from 7793-9355. Creatinine 1.25 in July 2023 Creatinine in [...] 06/04/25: Orders Only - Department of Radiology, [facility], in [place], [place], Radiology(from [facility]) 03/08/25: Office Visit - [facility], Nephrology (from [facility]) 03/06/25: Hospital Encounter - [facility], Fourth Floor, Telemetry Elias (from [facility]) 06/18/20: Comprehensive Visit - Division of Pulmonary Medicine in [place], [place], Pulmonary Medicine (from [facility]) 06/17/20: Hospital Encounter - Department of Laboratory Medicine and Pathology, [place], [place], Laboratory Medicine (from [facility]) Recent notes: 03/08/25: Progress Notes by Zachariah Porter MD (from [facility]) ... [+] Stage 3b chronic kidney disease (HCC) - Primary ... [+] Stage 3b chronic kidney disease (HCC) 03/07/25: Miscellaneous Notes - Assessment & Plan Note by Zachariah Porter MD (from [facility]) ... [+] Associated Problem(s): Stage 3b chronic kidney disease (HCC) 06/17/20: Consultation Note - Consult Notes (from [facility]) ... [+] #2 Hypertension And Chronic Kidney Disease Stage 3 (HCC) Atherosclerosis Jbgnry6203/09/2024Unspecified Diastolic (Congestive) Heart Failure 03/09/2024eficiency Vitamin D002/17/2024iaphragmatic Hernia Without Obstruction Or Zlhvdxek63/23/2024Urinary Tract Infection Site Not Iotdntsbx10/23/2024 Presence Of Urogenital Wjjzvhhm18/23/6424Khdnkb06/22/2024Transient Ischemic Suiyfw3702/16/2024rossing Vessel And Stricture Of Ureter Without Hydronephrosis 12/24/20235892Nsupctcsdajwni38/29/2024Obesity Body Mass Index 30-39.9 Adult 12/24/2023Hypertensive Chronic Kidney Disease With Stage 5 Chronic Kidney Disease Or End Stage Renal Ktnsxtj8801/05/2022Nonrheumatic Aortic Valve Fbwcjlkpahsat62/14/2022Nonrheumatic Mitral Valve Vgfqowujcvqju54/14/2022Fibrosis Pqprjmdro23/27/2022Gastroesophageal Reflux Owvowox9910/23/2021trial Fibrillation Zwntfgsfib44/09/2020 Overview (08/30/2025): happened during her stress test. Pain Chest Olzctflq37/22/2020Hypertension NOS06/18/2020 Overview (08/30/2025): Echocardiogram January 2024: EF 60-65% with aortic valve sclerosis present and mild AR. Normal plasma metanephrines, aldosterone 11, renin 39, and renal arterial Doppler study without evidence of renal artery stenosis, all performed at [facility] 2019. History Of Xtpkibu9106/17/2020Hyperlipidemia Mixed11/29/2019Hypothyroidism 11/23/2019Primary Generalized Szqhzyrelfyxox54/28/5929Rzkzmgje47/01/2008 Resolved Problems ProblemNoted DateDiagnosed DateResolved DateChronic Obstructive Pulmonary Ruecbmz82Hypertensive Jirxwqz44Injury Head Lutjsqa04Other Nonspecific Abnormal Finding Of Lung Field LeukocytosisLong Term Use Of Aspirin Fyptcw96djustment Disorder Mixed Chcvbyto54 Other Specified Diseases Of Liver Encounters DateTypeDepartmentCare IzneChzjiplmgsr71/19/2025linical Communication Department of Urology in [place], [place] [address] [place] [address] Dre Barcenas 09/13/2025 7:54 AM CSTAnesthesia Event RST RO MAIN OR [address] [place] [address] Soren Alfaro M.D. Kalvelage, Jason M, RICE FARMER, CORRECTIONAL CASE RECORDS SUPERVISOR, DNAP 09/13/2025 7:45 AM CSTAncillary Procedure Department of General Surgery 09/13/2025 7:15 AM LAB COORDINATOR - 09/13/2025 12:58 PM CSTSurgery [facility] OR [address] [place] [address] Rupert Loving M.D. ROBOTIC-ASSISTED PYELOPLASTY.09/13/2025 5:42 AM LAB COORDINATOR - 09/14/2025 12:28 PM LAB COORDINATOR Hospital Encounter [facility], [facility], [facility], Fifth Floor [address] [place] [address] Rupert Loving M.D. Hydronephrosis With Ureteropelvic Junction Obstruction (Primary Dx) Discharge Disposition: Home or Self Care09/11/2025 11:30 AM CSTOffice Visit Department of Urology in [place], [place] [address] [place] [address] Rupert Loving M.D. Hydronephrosis (Primary Dx); Urinary Tract Infection Site Not Docurgyal17/16/2025Orders Only Department of Urology in [place], [place] [address] [place] [address] Zandra Romero, R.N. Obstruction Kidney; Chronic Kidney Disease (CKD), Stage 3b Glomerular Filtration Rate (GFR) 30 To 44 (HCC); Hydronephrosis With Ureteral Stricture Not Elsewhere Stasjyyqvd94/08/2025Orders Only Department of Urology in [place], [place] [address] [place] [address] Madiha Loza, RGladys. Feeling Of Incomplete Bladder Emptying (Primary Dx); Xzoabstwdbhxtz16/04/2025 3:53 PM LAB COORDINATOR - 08/30/2025 8:39 PM CSTEmergency [facility] Emergency Department [address] [place] [address] Sergo Hogan M.D. Urinary Tract Infection Site Not Specified (Primary Dx); Vomiting Discharge Disposition: Home or Self Care08/30/2025 2:30 PM CSTComprehensive Visit Preoperative Evaluation Center in [place], [place] [address] [place] [phone] Vicki Rubio M.D., M.S. Yoseph Brown M.D. [...] Valve Insufficiency; Nonrheumatic Mitral Valve Insufficiency; Obstruction Aiwstm3508/30/2025 9:43 AM LAB COORDINATOR - 08/30/2025 11:45 AM CSTHospital Encounter Department of Radiology, [place], [place] [address] [place] [address] Vicki Rubio M.D., M.S. Pelon Armas M.D. Hydronephrosis Discharge Disposition: Home or Self Care08/30/2025 8:43 AM LAB COORDINATOR - 08/30/2025 9:41 AM CSTHospital Encounter Department of Laboratory Medicine and Pathology, [place], [place] [address] [place] [address] Vicki Rubio M.D., M.S. Hydronephrosis Discharge Disposition: Home or Self Care08/30/2025 8:43 AM LAB COORDINATOR - 08/30/2025 9:41 AM CSTHospital Encounter Department of Laboratory Medicine and Pathology, [place], [place] [address] [place] [phone] Vicki Rubio M.D., M.S. Hydronephrosis Discharge Disposition: Home or Self Care08/27/2025 1:15 PM CSTClinical Communication Virtual Review in [place], [place] [address] [place] [address] Blood Zlbtqgke57/01/2025Clinical Communication Department of Urology in [place], [place] [address] [place] [phone] Rupert Loving M.D. Phone Call07/23/2025Orders Only Department of Urology in [place], [place] [address] [place] [phone] Madiha Loza R.N. Hydronephrosis (Primary Dx)07/23/2025Orders Only Department of Urology in [place], [place] [address] [place] [phone] Madiha Loza R.N. Hydronephrosis (Primary Dx)07/04/2025Orders Only Department of Urology in [place], [place] [address] [place] [phone] Maddie Goff RFeiN. from Last 3 Months Immunizations ImmunizationAdministration DatesNext DueHZV (ZOSTAVAX)01/26/20086960RMJG0474/20/2005 Td (Adult), uktjxzjo44/01/2008 Family History Medical HistoryRelationNameCommentsParkinsonismBrother 1MarvyHeart attackBrother 2DennisCoronary artery diseaseFatherChetage 67 for heart attackCancerMother NellieThyroid diseaseMotherNellieRelationNameStatusCommentsBrother 1MarvyBrother 2DennisAliveHad [place] at 37 but was smokerFatherChetMotherNellie Social History Tobacco UseTypesPacks/DayYears UsedDateSmoking Tobacco: NeverSmokeless Tobacco: Never Tobacco Cessation:Counseling Given: Not Answered Alcohol UseStandard Drinks/WeekCommentsNever0 (1 standard drink = 0.6 oz pure alcohol)Humiliation, Afraid, Rape, and Kick questionnaireAnswerDate Recorded Within the last year, have you been afraid of your partner or ex-partner?Patient unable to wzauob4409/13/2025Within the last year, have you been humiliated or emotionally abused in other ways by your partner or ex-partner?Patient unable to sbemfd5409/13/2025Within the last year, have you been kicked, [...] RecordedIn the past 12 months has the ResQU, gas, oil, or water 2d2c threatened to shut off services in your home?No09/13/2025Housing StabilityAnswerDate RecordedWhat is your living situation today?I have a steady place to live09/13/2025EducationAnswerDate RecordedWhat is the highest level of school you have completed or the highest degree you have received?Associate degree: occupational, technical, or vocational pquqele4305/27/2020Comments NoSex and Gender InformationValueDate RecordedSex Assigned at BirthFemale 02/19/2025 10:16 AM CDTLegal XeqVymnwu74/02/2017 2:16 PM CSTGender Identity Cudlwb7102/19/2025 10:16 AM CDTSexual RgruyioufruEuterudy98/26/2025 10:16 AM CDT Last Filed Vital Signs Vital SignReadingTime TakenCommentsBlood Xgtofrbw139/9009/14/2025 12:15 PM LAB COORDINATOR Qummd532409/14/2025 12:15 PM JOPOrdoaaqdrfr16.6 ??C (97.9 ??F)09/14/2025 12:15 PM CSTRespiratory Xajm391211/15/2024 12:15 PM CSTOxygen Jyrogbrejc459%09/14/2025 12:15 PM CSTInhaled Oxygen Concentration--Kjpuni80.9 kg (169 lb 8.5 oz) 09/13/2025 2:11 PM WQHTzzvjl886 cm (5' 2.6)09/13/2025 6:17 AM CSTBody Mass Index30.42111/14/2024 6:17 AM LAB COORDINATOR Plan of Treatment DateTypeDepartmentCare Team (Latest Contact Info)Vnzykpgncgy52/03/2026 8:00 AM CSTProcedure visit Department of Urology in [place], [place] [address] [place] [address] Rupert Loving M.D. [address] [place] [address] Health MaintenanceDue DateLast DoneCommentsOffice Visit for Blood Pressure Check / Re-check1940DTaP,Tdap,and Td Vaccines (1 - Tdap) Zoster Vaccines (2 of 3)RSV vaccine - (32-36 weeks) or 50+ years (1 - 1-dose 75+ series)2015Depression Screening (Annual PHQ-2)09/27/2024OVID-19 Vaccine (1 - 2024- season)2025Influenza Vaccine (#1)5111/16/2015, 06/24/2015, 07/17/2014, Additional history exists Thyroid Stimulating Hormone (TSH) test for thyroid dzyivfxn42/04/557764/12/2024, 07/25/2024, 02/17/2024, Additional history existsPneumococcal vaccine (50+ years)Pnerbidnw93/25/2017, 09/15/2005Fall Risk Screen (Annual)Completed 09/13/2025IPV VaccinesAged OutNo longer eligible based on patient's age to complete this topic Medical Devices ImplantedTypeAreaManufacturerDevice IdentifierShelf Expiration DateModel / Serial / LotClp Lpr Abs Sut - [id number] Implanted:Qty: 1 on 09/13/2025 [facility] e.[facility] pins/screws/rodsJoson & Gera Services [id number] 02/25/2028XC200 / / [id number] Hmol Pl Md - [id number] Implanted:Qty: 1 on 09/13/2025 by [facility] e.g. pins/screws/rodsTeleflex [id number] / / [id number] - Default Historical Implant Device Implanted:04/18/2014 (Quantity not on file)Knee ImplantLeft: KneeDescription: Body Location - Knee L. LT TKA 1997. Device Status Text - Knee Joint.Stnt Uret Inl 7fx26 - [id number] Implanted:Qty: 1 on 09/13/2025 by [facility] at [facility] campusUreteral StentRight: UreterC.R.[id number]/31/[id number] / / [id number] Procedures Procedure NamePriorityDate/TimeAssociated DiagnosisCommentsOUTSIDE CT BODY Bgwwkin0909/24/2025 10:30 AM LAB COORDINATOR CBC WITHOUT DIFFERENTIAL, KTuqjlct04/19/2025 12:35 AM LAB COORDINATOR BASIC METABOLIC PANEL, S/MWhsvwgr36/19/2025 12:35 AM LAB COORDINATOR PULSE OXIMETRY WITH REMOTE ZAHMAAGEZcnrjpb61/18/2025 6:18 PM CSTPULSE OXIMETRY WITH REMOTE EDQQSCCRJvcoxij92/18/2025 6:18 PM CSTADULT OXYGEN THERAPYRoutine 09/13/2025 5:23 PM CSTADULT OXYGEN GRCAUSWZofveil22/18/2025 5:23 PM CSTADULT OXYGEN SGXGLUDRbvygvs11/18/2025 5:23 PM CSTADULT OXYGEN BHAVTNFBeftfyi04/18/2025 11:40 AM CSTPATIENT STATUS, RXKROBL77/18/2025 8:32 AM LAB COORDINATOR GLUCOSE, WHOLE FMNKBMXOX99/18/2025 8:32 AM LAB COORDINATOR POTASSIUM, BSTAT111/14/2024 8:32 AM LAB COORDINATOR SODIUM, BSTAT111/14/2024 8:32 AM LAB COORDINATOR CALCIUM, IONIZED, S/BSTAT111/14/2024 8:32 AM LAB COORDINATOR ABG W/BLMPXXKZ93/18/2025 8:32 AM LAB COORDINATOR TYPE AND EDEFZUIrhjtky64/18/2025 8:20 AM LAB COORDINATOR LDA ANE ARTERIAL LINE GCNOJNJJCHvnfsop13/18/2025 8:14 AM LAB COORDINATOR AZ ARTL CATH/CNULA MONITOR PHZMKxrpgtz16/18/2025 8:14 AM LAB COORDINATOR LDA ANE ENDOTRACHEAL YJMKQKPqblqfz06/18/2025 8:04 AM LAB COORDINATOR SURGERY IMAGE VGMTFxmvlaf27/18/2025 7:45 AM LAB COORDINATOR STENT PLACEMENT - IIOGMQZY89/18/2025 7:24 AM LAB COORDINATOR 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 YEJPFCYJYPKU40/18/2025 7:24 AM LAB COORDINATOR 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 ROBOTIC-ASSISTED CRHCMKRVRAK36/18/2025 7:24 AM LAB COORDINATOR 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 TROPONIN T, 2H/6H REFLEX, 5TH GEN, MNggcx3308/30/2025 6:50 PM LAB COORDINATOR MICROSCOPIC ZIOUJODBJM95/04/2025 5:51 PM LAB COORDINATOR DIPSTICK, USTAT110/31/2024 5:51 PM LAB COORDINATOR PH, USTAT110/31/2024 5:51 PM LAB COORDINATOR OSMOLALITY, USTAT110/31/2024 5:51 PM LAB COORDINATOR DIPSTICK, WTahcpbm56/04/2025 5:51 PM LAB COORDINATOR PH, INnlboej25/04/2025 5:51 PM LAB COORDINATOR MICROSCOPIC IRCIIRUMTAboywrm50/04/2025 5:51 PM LAB COORDINATOR OSMOLALITY, NNvwkydz33/04/2025 5:51 PM LAB COORDINATOR URINALYSIS WITH GJIWVKUDXOQIxuqntw08/04/2025 5:51 PM LAB COORDINATOR URINALYSIS WITH NZUJGABNTFPDVRK32/04/2025 5:[address] ABDOMEN PELVIS WITH IV CONTRASTRAD - Semiurgent (Fast; most ED patients; some inpatients)08/30/2025 5:01 PM LAB COORDINATOR LACTATE, VENOUS, BSTAT110/31/2024 4:25 PM LAB COORDINATOR PATIENT DEVCHUVYBY28/04/2025 4:25 PM LAB COORDINATOR VENOUS BLOOD GAS W/O SXZSLQUT22/04/2025 4:25 PM LAB COORDINATOR C-REACTIVE PROTEIN (CRP), S/PSTAT110/31/2024 4:24 PM LAB COORDINATOR THYROID-STIMULATING HORMONE-SENSITIVE (S-TSH)STAT110/31/2024 4:24 PM LAB COORDINATOR TROPONIN T, BASELINE, 5TH GEN, PSTAT110/31/2024 4:24 PM LAB COORDINATOR SEDIMENTATION RATE, BSTAT110/31/2024 4:24 PM LAB COORDINATOR PROTHROMBIN TIME (PT), PSTAT110/31/2024 4:24 PM LAB COORDINATOR NT-PRO B-TYPE NATRIURETIC PEPTIDE (BNP), SSTAT110/31/2024 4:24 PM LAB COORDINATOR LIPASE, S/PSTAT110/31/2024 4:24 PM LAB COORDINATOR HEPATIC FUNCTION PANEL, SSTAT110/31/2024 4:24 PM LAB COORDINATOR CBC WITH DIFFERENTIAL, BSTAT110/31/2024 4:24 PM LAB COORDINATOR BASIC METABOLIC PANEL, S/PSTAT110/31/2024 4:24 PM LAB COORDINATOR LLJPNBV0208/30/2025 4:14 PM LAB COORDINATOR IR NEPHROSTOMY TUBE EXCHANGE RIGHTRAD - Routine (most inpatients and all outpatients)08/30/2025 11:29 AM LAB COORDINATOR Hydronephrosis BACTERIAL CULTURE, AEROBIC + SUSC, WWEDBNaxtats58/04/2025 9:09 AM LAB COORDINATOR Hydronephrosis TYPE AND WQOVEQFvuhyzz50/04/2025 9:00 AM LAB COORDINATOR Hydronephrosis BASIC METABOLIC PANEL, S/IPxwjqmn79/04/2025 9:00 AM LAB COORDINATOR Hydronephrosis CBC WITHOUT DIFFERENTIAL, LQeyqrwk26/04/2025 9:00 AM LAB COORDINATOR Hydronephrosis from Last 3 Months Results * CT ABDOMEN PELVIS WO CON-Outside CT Body (09/24/2025 10:30 AM LAB COORDINATOR)Specimen (Source)Anatomical Location / LateralityCollection Method / VolumeCollection TimeReceived Time Narrative IIMS - 09/24/2025 2:52 PM LAB COORDINATOR This order has been created and auto-finalized to support the import of outside images. If available, original interpretation can be found on the Media Tab in Chart Review, in Document Viewer, as an image in InfinityView or as an Addendum. If a re-interpretation or overread is required please follow defined workflow. ?? Authorizing ProviderResult TypeResult StatusProvider Not In SystemIMG CT PROCEDURESFinal ResultPerforming OrganizationAddressCity/State/ZIP CodePhone Number IIMS NA * (ABNORMAL) CBC without Differential (09/14/2025 12:35 AM LAB COORDINATOR) Only the most recent of2 resultswithin the time period is included. ComponentValueRef RangeTest MethodAnalysis TimePerformed AtPathologist Signature Hemoglobin8.3(L)11.6 - 15.0 g/dL09/14/2025 12:51 AM KIOLTVRpcsezoxtl78.4(L)35.5 - 44.9 %09/14/2025 12:51 AM CSTDTLErythrocytes2.93(L)3.92 - 5.13 x10(12)/L 09/14/2025 12:51 AM LQKPWFNZA56.178.2 - 97.9 fL09/14/2025 12:51 AM CSTDTLRBC Distrib Width14.612.2 - 16.1 %09/14/2025 12:51 AM CSTDTLPlatelet Dssgd924(H)157 - 371 x10(9)/L111/15/2024 12:51 AM CSTDTLLeukocytes8.43.4 - 9.6 x10(9)/L 09/14/2025 12:51 AM CSTDTLSpecimen (Source)Anatomical Location / Laterality Collection Method / VolumeCollection TimeReceived TimeBlood (Blood, Venous) 09/14/2025 12:35 AM CST09/14/2025 12:44 AM LAB COORDINATOR Narrative Authorizing ProviderResult TypeResult StatusNeetu Simon M.D. MFeiEd.LAB BLOOD ADD-ONFinal ResultPerforming OrganizationAddressCity/State/ZIP CodePhone Number [facility] [address] [place] [address], [facility] DTL [facility] [address] [place] [address] * (ABNORMAL) Basic Metabolic Panel (09/14/2025 12:35 AM LAB COORDINATOR) Only the most recent of3 resultswithin the time period is included. ComponentValueRef RangeTest MethodAnalysis TimePerformed AtPathologist Signature Potassium, S5.03.6 - 5.2 mmol/L111/15/2024 1:14 AM CSTDTLSodium, S133(L)135 - 145 mmol/L111/15/2024 1:14 AM CSTDTLChloride, U71526 - 107 mmol/L111/15/2024 1:14 AM CSTDTLBicarbonate, S21(L)22 - 29 mmol/L111/15/2024 1:14 AM CSTDTLAnion Huf696 - 15111/15/2024 1:14 AM CSTDTLBUN (Blood Urea [...] (Blood, Venous)09/14/2025 12:35 AM CST09/14/2025 12:59 AM LAB COORDINATOR Narrative Authorizing ProviderResult TypeResult StatusNeetu Simon M.D., M.Ed.LAB BLOOD ADD-ONFinal ResultPerforming OrganizationAddressCity/State/ZIP CodePhone Number [facility] [address] [place] [address], [place] DTL [facility] [address] [place] [address] * Patient Status (09/13/2025 8:32 AM LAB COORDINATOR)ComponentValueRef RangeTest Method Analysis TimePerformed AtPathologist OlnuhapvhRspsmcjqahx71.037.0 deg C 09/13/2025 8:32 AM MYPTZUMGUT35.570.21=AIR09/13/2025 8:32 AM CSTMETHSpecimen (Source)Anatomical Location / LateralityCollection Method / VolumeCollection TimeReceived FlbuIlxpj59/18/2025 8:32 AM CST09/13/2025 8:32 AM LAB COORDINATOR Narrative Authorizing ProviderResult TypeResult StatusSoren Alfaro M.D.LAB BLOOD NON ADD-ONFinal ResultPerforming OrganizationAddressCity/State/ZIP CodePhone Number [facility] [address] [place] [address] * Sodium, B (09/13/2025 8:32 AM LAB COORDINATOR)ComponentValueRef RangeTest MethodAnalysis TimePerformed AtPathologist SignatureSodium, O483213 - 145 mmol/L111/14/2024 8:33 AM CSTMETHSpecimen (Source)Anatomical Location / LateralityCollection Method / VolumeCollection TimeReceived TimeBlood (Blood, Arterial)09/13/2025 8:32 AM CST09/13/2025 8:32 AM LAB COORDINATOR Narrative Authorizing ProviderResult TypeResult StatusSoren Alfaro M.D.LAB BLOOD NON ADD-ONFinal ResultPerforming OrganizationAddressCity/State/ZIP CodePhone Number [facility] [address] [place] [address] * (ABNORMAL) Blood Gas with Coox, Arterial (09/13/2025 8:32 AM LAB COORDINATOR)Component ValueRef RangeTest MethodAnalysis TimePerformed AtPathologist JdtdedqrxrX6138 (H)83 - 108 mm Hg09/13/2025 8:33 AM XXNRULXaAI23359 - 45 mm Hg09/13/2025 8:33 AM CSTMETHpH7.397.35 - 7.45 pH09/13/2025 8:33 AM CSTMETHBase Excess-5(L)-2 - 3 mmol/L111/14/2024 8:33 AM AAUKATXAUR418(L)22 - 26 mmol/L111/14/2024 8:33 AM CSTMETHHemoglobin, B8.7(L)11.6 - 15.0 g/dL09/13/2025 8:33 AM YLJEMYWJ6Yp25.7 94.0 - 98.0 %09/13/2025 8:33 AM CSTMETHCOHb1.1<3.0 %09/13/2025 8:33 AM CSTMETH MetHb1.2<1.5 %09/13/2025 8:33 AM NXMNXCFEnP850.3(L)18.0 - 21.0 vol %09/13/2025 8:33 AM CSTMETHSpecimen (Source)Anatomical Location / LateralityCollection Method / VolumeCollection TimeReceived TimeBlood (Blood, Arterial)09/13/2025 8:32 AM CST09/13/2025 8:32 AM LAB COORDINATOR Narrative Authorizing ProviderResult TypeResult StatusSoren Alfaro M.D.LAB BLOOD NON ADD-ONFinal ResultPerforming OrganizationAddressCity/State/ZIP CodePhone Number [facility] [address] [place] [address] * Potassium, Blood (09/13/2025 8:32 AM LAB COORDINATOR)ComponentValueRef RangeTest Method Analysis TimePerformed AtPathologist SignaturePotassium, B3.93.6 - 5.2 mmol/L 09/13/2025 8:40 AM CSTMETHSpecimen (Source)Anatomical Location / Laterality Collection Method / VolumeCollection TimeReceived TimeBlood (Blood, Arterial) 09/13/2025 8:32 AM CST09/13/2025 8:32 AM LAB COORDINATOR Narrative Authorizing ProviderResult TypeResult StatusSoren Alfaro M.D.LAB BLOOD NON ADD-ONFinal ResultPerforming OrganizationAddressCity/State/ZIP CodePhone Number [facility] [address] [place] [address], [facility] [address] [place] [address] * Glucose, Whole Blood (09/13/2025 8:32 AM LAB COORDINATOR)ComponentValueRef RangeTest MethodAnalysis TimePerformed AtPathologist JkrkfcmboExygzdo68682 - 140 mg/dL 09/13/2025 8:33 AM CSTMETHSpecimen (Source)Anatomical Location / Laterality Collection Method / VolumeCollection TimeReceived TimeBlood (Blood, Arterial) 09/13/2025 8:32 AM CST09/13/2025 8:32 AM LAB COORDINATOR Narrative Authorizing ProviderResult TypeResult StatusSoren Alfaro M.D.LAB BLOOD ADD-ON Final ResultPerforming OrganizationAddressCity/State/ZIP CodePhone Number [facility] [address] [place] [address] * Calcium, Ionized (09/13/2025 8:32 AM LAB COORDINATOR)ComponentValueRef RangeTest Method Analysis TimePerformed AtPathologist SignatureCalcium, Ionized, B4.804.65 - 5.30 mg/dL09/13/2025 8:40 AM CSTMETHSpecimen (Source)Anatomical Location / LateralityCollection Method / VolumeCollection TimeReceived TimeBlood (Blood, Arterial)09/13/2025 8:32 AM CST09/13/2025 8:32 AM LAB COORDINATOR Narrative Authorizing ProviderResult TypeResult StatusSoren Alfaro M.D.LAB BLOOD NON ADD-ONFinal ResultPerforming OrganizationAddressty/State/ZIP CodePhone Number [facility] [address] [place], [place] [id number] * Type and Screen (with Reflex Antibody ID) (09/13/2025 8:20 AM LAB COORDINATOR) Only the most recent of2 resultswithin the time period is included. ComponentValueRef RangeTest MethodAnalysis TimePerformed AtPathologist Signature ABORhO PosNot bnbvovoblg68/18/2025 9:26 AM CSTETRMAntibody ScreenNegative Kfphwoyr79/18/2025 9:40 AM CSTETRMType & Screen Bvrrnlmczp46/21/2025 23:59 09/13/2025 9:26 AM CSTETRMTesting Location[place] DEFAULT 09/13/2025 8:43 AM CSTETRMSpecimen (Source)Anatomical Location / Laterality Collection Method / VolumeCollection TimeReceived TimeBlood (Blood, Venous) 09/13/2025 8:20 AM CST09/13/2025 8:43 AM LAB COORDINATOR Narrative Authorizing ProviderResult TypeResult StatusBenvale Alfaro M.D.LAB BLOOD BANK TEST ORDERABLESFinal ResultPerforming OrganizationAddressCity/State/ZIP Code Phone Number [facility] [address] [place] [address], [facility] ETRM [facility] [address] [place] [address] * [place] ARTL CATH/CNULA MONITOR PERC, LDA ANE ARTERIAL LINE INSERTION (09/13/2025 8:14 AM LAB COORDINATOR) Narrative Soren Alfaro M.D. - 09/13/2025 8:14 AM LAB COORDINATOR Soren Alfaro M.D. 09/13/2025 8:33 AM Invasive Catheter Date/Time: 09/13/2025 8:14 AM Performed by: Milena Luz RFeiNFei Authorized by: Soren Alfaro M.D. ?? [...] fellow participated in the procedure, and the reporting consultant was present for the entire procedure. Authorizing ProviderResult TypeResult Gunjan Alfaro M.D.PROCEDURE/MINOR SURGICAL ORDERABLESFinal Result * LDA ANE ENDOTRACHEAL AIRWAY (09/13/2025 8:04 AM LAB COORDINATOR) Narrative Milena Luz R.N. - 09/13/2025 8:04 AM LAB COORDINATOR Milena Luz R.N. 09/13/2025 8:15 AM Airway [...] ETT location: oral VL device: glide scope [place] scope blade size: 3 Tube size: 7 [...] fellow participated in the procedure, and the reporting consultant was present for the entire procedure. Authorizing ProviderResult TypeResult Gunjan Alfaro M.D.ANESTHESIA ORDERABLESFinal Result * ROBOT-Surgery Image Exam (09/13/2025 7:45 AM LAB COORDINATOR)Specimen (Source)Anatomical Location / LateralityCollection Method / VolumeCollection TimeReceived Time 09/13/2025 7:42 AM LAB COORDINATOR Narrative IIMS - 09/13/2025 11:23 AM LAB COORDINATOR This order has been created and auto-finalized [...] Hour Reflex, 5th Gen (08/30/2025 6:50 PM LAB COORDINATOR)ComponentValueRef RangeTest MethodAnalysis TimePerformed AtPathologist SignatureTroponin T, 2 hr, 5th gen17(H)<=10 ng/L110/31/2024 7:28 PM GOEFUYQ0L Zjknb7vi/L110/31/2024 7:28 PM CSTSTMAComment:6 hour collection not indicated.2H Delta InterpNot Ufeudbft02/04/2025 7:28 PM CSTSTMASpecimen (Source)Anatomical Location / LateralityCollection Method / VolumeCollection TimeReceived Time Blood08/30/2025 6:50 PM CST08/30/2025 7:08 PM LAB COORDINATOR Narrative Authorizing ProviderResult TypeResult StatusSergo Hogan M.D.LAB BLOOD TROPONINFinal ResultPerforming OrganizationAddressCity/State/ZIP CodePhone Number [facility] [address] [place] [address], [facility] [address] [place] [address] * (ABNORMAL) Dipstick, Urine (08/30/2025 5:51 PM LAB COORDINATOR) Only the most recent of2 resultswithin the time period is included. ComponentValueRef RangeTest MethodAnalysis TimePerformed AtPathologist Signature Hemoglobin, QL, UModerate(A)Vbzvbanr28/04/2025 6:44 PM CSTDTLLeukocyte Esterase, ULarge(A)Qfdvvvfe26/04/2025 6:44 PM CSTDTLNitrite, OWolooshgQbacuqxu45/04/2025 6:44 PM CSTDTLKetone, UNegativeNegative mg/dL08/30/2025 6:44 PM CSTDTLGlucose, U NegativeNegative mg/dL08/30/2025 6:44 PM CSTDTLSpecimen (Source)Anatomical Location / LateralityCollection Method / VolumeCollection TimeReceived TimeUrine 08/30/2025 5:51 PM CST08/30/2025 6:34 PM LAB COORDINATOR Narrative Authorizing ProviderResult TypeResult StatusSergo Hogan M.D.LAB URINE ORDERABLESFinal ResultPerforming OrganizationAddressCity/State/ZIP CodePhone Number [facility] [address] [place] [address], [address] [address] * (ABNORMAL) Microscopic Manual (08/30/2025 5:51 PM LAB COORDINATOR)ComponentValueRef Range Test MethodAnalysis TimePerformed AtPathologist SignatureMicroscopyAbnormal 08/30/2025 7:18 PM CSTDTLRBC<3<3 /hpf08/30/2025 7:18 PM CSTDTLWBC1-3/hpf 08/30/2025 7:18 PM CSTDTLComment: ----REFERENCE VALUE---- <4 (Males) <11 (Females) Squamous Epithelial Cells, U1-3/hpf08/30/2025 7:18 PM CSTDTLBacteriaPresent(A) 08/30/2025 7:18 PM CSTDTLSpecimen (Source)Anatomical Location / Laterality Collection Method / VolumeCollection TimeReceived ZjysNsfhf78/04/2025 5:51 PM CST08/30/2025 6:44 PM LAB COORDINATOR Narrative Authorizing ProviderResult TypeResult StatusSergo Hogan M.D.LAB URINE ORDERABLESFinal ResultPerforming OrganizationAddressCity/State/ZIP CodePhone Number [facility] [address] [place] [address], [facility] [address] [place] [address] * Microscopic Automated (08/30/2025 5:51 PM LAB COORDINATOR)ComponentValueRef RangeTest MethodAnalysis TimePerformed AtPathologist GsabdzovfTsndkwnosfOnokle34/04/2025 6:42 PM CSTDTLRBCNone Seen<3 /hpf08/30/2025 6:42 PM CSTDTLWBC1-3/hpf 08/30/2025 6:42 PM CSTDTLComment: ----REFERENCE VALUE---- <4 (Males) <11 (Females) Squamous Epithelial Cells, U1-3/hpf08/30/2025 6:42 PM CSTDTLSpecimen (Source) Anatomical Location / LateralityCollection Method / VolumeCollection Time Received RoetLmbsy75/04/2025 5:51 PM CST08/30/2025 6:32 PM LAB COORDINATOR Narrative Authorizing ProviderResult TypeResult StatusSergo Hogan M.D.LAB URINE ORDERABLESFinal ResultPerforming OrganizationAddressCity/State/ZIP CodePhone Number [facility] [address] [place] [address] * pH, Urine (08/30/2025 5:51 PM LAB COORDINATOR) Only the most recent of2 resultswithin the time period is included. ComponentValueRef RangeTest MethodAnalysis TimePerformed AtPathologist Signature pH, U6.74.5 - 8. 7:02 PM CSTDTLSpecimen (Source)Anatomical Location / LateralityCollection Method / VolumeCollection TimeReceived LunhYxwnb09/04/2025 5:51 PM CST08/30/2025 6:34 PM LAB COORDINATOR Narrative Authorizing ProviderResult TypeResult StatusSergo Hogan M.D.LAB URINE ORDERABLESFinal ResultPerforming OrganizationAddressCity/State/ZIP CodePhone Number [facility] [address] [place] [address] * Osmolality, Urine (08/30/2025 5:51 PM LAB COORDINATOR) Only the most recent of2 resultswithin the time period is included. ComponentValueRef RangeTest MethodAnalysis TimePerformed AtPathologist Signature Osmolality, [id number] - 1150 mOsm/kg08/30/2025 7:02 PM CSTDTLSpecimen (Source) Anatomical Location / LateralityCollection Method / VolumeCollection Time Received FrobBjbbu01/04/2025 5:51 PM CST08/30/2025 6:34 PM LAB COORDINATOR Narrative Authorizing ProviderResult TypeResult StatusSergo Hogan M.D.LAB URINE ORDERABLESFinal ResultPerforming OrganizationAddressCity/State/ZIP CodePhone Number [facility] [address] [place], [place] [address] [place] [address] [address] [place] [address] * Urinalysis, with Microscopic: Urine, Midstream (08/30/2025 5:51 PM LAB COORDINATOR) Only the most recent of2 resultswithin the time period is included. ComponentValueRef RangeTest MethodAnalysis TimePerformed AtPathologist Signature SourceUrine, Urine, Sjyeldxfa25/04/2025 6:32 PM CSTDTLColor, XZegbym9208/30/2025 6:32 PM CSTDTLClarity, BIkokr6408/30/2025 6:32 PM CSTDTLProtein, U6<26 mg/dL 08/30/2025 7:11 PM CSTDTLProtein/Osmolality0.11<0.42 ratio08/30/2025 7:11 PM LAB COORDINATOR DTLPredicted 24 HR Protein, U93<229 mg/24 08/30/2025 7:11 PM CSTDTLPredicted Sjtsy91-774ih/24 08/30/2025 7:11 PM CSTDTLSpecimen (Source)Anatomical Location / LateralityCollection Method / VolumeCollection TimeReceived TimeUrine (Urine, Midstream)08/30/2025 5:51 PM CST08/30/2025 6:32 PM LAB COORDINATOR Narrative Authorizing ProviderResult TypeResult StatusSergo Hogan M.D.LAB URINE ORDERABLESFinal ResultPerforming OrganizationAddressCity/State/ZIP CodePhone Number [facility] [address] [place] [address], [address] [address] * CT Abdomen Pelvis with IV Contrast (08/30/2025 5:01 PM LAB COORDINATOR)Anatomical Region LateralityModalityAbdomen, Pelvis, Abdominal RST LOS, Abdominal ARZ LOS, Abdominal FLA LOSN/AComputed Tomography, Computed TomographySpecimen (Source) Anatomical Location / LateralityCollection Method / VolumeCollection Time Received Time08/30/2025 4:58 PM LAB COORDINATOR Impressions 08/30/2025 6:15 PM LAB COORDINATOR No acute findings in the abdomen or pelvis. Narrative 08/30/2025 6:15 PM LAB COORDINATOR EXAM: CT ABDOMEN PELVIS WITH IV CONTRAST [...] joints. No lymphadenopathy. J-shaped celiac trunk with xbf-suye-xkxbeohz narrowing in the proximal segment, unchanged since [...] joints. No lymphadenopathy. J-shaped celiac trunk with qaj-xftl-tugutwjo narrowing in the proximalsegment, unchanged since 2019. [...] * Lactate, Venous, Blood (08/30/2025 4:25 PM LAB COORDINATOR)ComponentValueRef RangeTest MethodAnalysis TimePerformed AtPathologist SignatureLactate, Venous, B1.40.5 - 2.2 mmol/L110/31/2024 4:36 PM CSTSTMASpecimen (Source)Anatomical Location / LateralityCollection Method / VolumeCollection TimeReceived TimeBlood 08/30/2025 4:25 PM CST08/30/2025 4:32 PM LAB COORDINATOR Narrative Authorizing ProviderResult TypeResult Boyd Hogan M.D.LAB BLOOD ADD-ONFinal ResultPerforming OrganizationAddressCity/State/ZIP CodePhone Number [facility] [address] [place] [address], [facility] [address] [place] [address] * Patient Status (08/30/2025 4:25 PM LAB COORDINATOR)ComponentValueRef RangeTest Method Analysis TimePerformed AtPathologist PlyoqhlaeFAA09.210.21=AIR08/30/2025 4:32 PM CSTSTMASpont. breaths/cui042910/31/2024 4:32 PM CSTSTMASpecimen (Source) Anatomical Location / LateralityCollection Method / VolumeCollection Time Received IpgrCvdrr71/04/2025 4:25 PM CST08/30/2025 4:32 PM LAB COORDINATOR Narrative Authorizing ProviderResult TypeResult Boyd Hogan M.D.LAB BLOOD NON ADD-ONFinal ResultPerforming OrganizationAddressCity/State/ZIP CodePhone Number [facility] [address] [place] [address], [facility] [address] [place] [address] * Blood Gas without Coox, Venous (08/30/2025 4:25 PM LAB COORDINATOR)ComponentValueRef Range Test MethodAnalysis TimePerformed AtPathologist SignaturepO2, Venous, B21Not applicable mm Hg08/30/2025 4:36 PM CSTSTMApCO2, Venous, B4341 - 51 mm Hg 08/30/2025 4:36 PM CSTSTMApH, Venous, B7.387.32 - 7.43 pH08/30/2025 4:36 PM CSTSTMABase Excess, Venous, B0Not applicable mmol/L110/31/2024 4:36 PM CSTSTMA HCO3, Venous, B25Not applicable mmol/L110/31/2024 4:36 PM CSTSTMASample Site, Venous, YEuzqvtuko87/04/2025 4:32 PM CSTSTMASpecimen (Source)Anatomical Location / LateralityCollection Method / VolumeCollection TimeReceived Time Blood (Blood, Venous)08/30/2025 4:25 PM CST08/30/2025 4:32 PM LAB COORDINATOR Narrative Authorizing ProviderResult TypeResult Boyd Hogan M.D.LAB BLOOD NON ADD-ONFinal ResultPerforming OrganizationAddressCity/State/ZIP CodePhone Number [facility] [address] [place] [address], [facility] [address] [place] [address] * (ABNORMAL) Troponin T, Baseline with 2 Hour/6 Hour Reflex Biomarker Panel (08/30/2025 4:24 PM LAB COORDINATOR)ComponentValueRef RangeTest MethodAnalysis Time Performed AtPathologist SignatureTroponin T, Baseline, 5th gen15(H)<=10 ng/L 08/30/2025 4:58 PM CSTSTMASpecimen (Source)Anatomical Location / Laterality Collection Method / VolumeCollection TimeReceived TimeBlood (Blood, Venous) 08/30/2025 4:24 PM CST08/30/2025 4:32 PM LAB COORDINATOR Narrative Authorizing ProviderResult TypeResult Boyd Hogan M.D.LAB BLOOD TROPONINFinal ResultPerforming OrganizationAddressCity/State/ZIP CodePhone Number [facility] [address] [place] [address], [facility] [address] [place] [address] * (ABNORMAL) Hepatic Function Panel (08/30/2025 4:24 PM LAB COORDINATOR)ComponentValueRef RangeTest MethodAnalysis TimePerformed AtPathologist SignatureBilirubin, Total, S0.20.0 [...] (Blood, Venous)08/30/2025 4:24 PM CST08/30/2025 4:43 PM LAB COORDINATOR Narrative Authorizing ProviderResult TypeResult StatusSergo Hogan M.D.LAB BLOOD ADD-ONFinal ResultPerforming OrganizationAddressCity/State/ZIP CodePhone Number [facility] [address] [place] [address], [facility] DTL [facility] [address] [place] [address] * (ABNORMAL) NT-Pro B-Type Natriuretic Peptide (BNP) (08/30/2025 4:24 PM LAB COORDINATOR) ComponentValueRef RangeTest MethodAnalysis TimePerformed AtPathologist SignatureNT-Pro EBS0521(H)<=540 pg/mL08/30/2025 4:58 PM CSTSTMAComment: NT-proBNP values less [...] Collection TimeReceived TimeBlood (Blood, Venous)08/30/2025 4:24 PM LAB COORDINATOR 08/30/2025 4:32 PM LAB COORDINATOR Narrative Authorizing ProviderResult TypeResult StatusSergo Hogan M.D.LAB BLOOD ADD-ONFinal ResultPerforming OrganizationAddressCity/State/ZIP CodePhone Number [facility] [address] [place] [address], [facility] STMA [facility] [address] [place] [address] * (ABNORMAL) Sedimentation Rate (08/30/2025 4:24 PM LAB COORDINATOR)ComponentValueRef Range Test MethodAnalysis TimePerformed AtPathologist SignatureSedimentation Rate, B 35(H)3 - 28 mm/08/30/2025 5:47 PM CSTDTLSpecimen (Source)Anatomical Location / LateralityCollection Method / VolumeCollection TimeReceived TimeBlood (Blood, Venous)08/30/2025 4:24 PM CST08/30/2025 4:44 PM LAB COORDINATOR Narrative Authorizing ProviderResult TypeResult StatusSergo Hogan M.D.LAB BLOOD ADD-ONFinal ResultPerforming OrganizationAddressCity/State/ZIP CodePhone Number [facility] [address] [place] [address], [facility] DTL [facility] [address] [place] [address] * Prothrombin Time (PT) (08/30/2025 4:24 PM LAB COORDINATOR)ComponentValueRef RangeTest MethodAnalysis TimePerformed AtPathologist SignatureProthrombin Time, P11.69.4 - 12.5 sec08/30/2025 4:42 PM CSTSTMAINR1.10.9 - 1. 4:42 PM CSTSTMA Comment: ----ADDITIONAL INFORMATION---- Standard intensity warfarin therapeutic range: 2.0 to 3.0 ?? High intensity warfarin therapeutic range: 2.5 to 3.5 Specimen (Source)Anatomical Location / LateralityCollection Method / Volume Collection TimeReceived TimeBlood (Blood, Venous)08/30/2025 4:24 PM LAB COORDINATOR 08/30/2025 4:32 PM LAB COORDINATOR Narrative Authorizing ProviderResult TypeResult StatusSergo Hogan M.D.LAB BLOOD ADD-ONFinal ResultPerforming OrganizationAddressCity/State/ZIP CodePhone Number [facility] [address] [place] [address], [place] STMA [facility] [address] [place] [address] * (ABNORMAL) CBC with Differential, Blood (08/30/2025 4:24 PM LAB COORDINATOR)ComponentValue Ref RangeTest MethodAnalysis TimePerformed AtPathologist SignatureHemoglobin 9.9(L)11.6 - 15.0 g/dL08/30/2025 4:35 PM NKXELAUWrpytoyzwo06.3(L)35.5 - 44.9 % 08/30/2025 4:35 PM CSTSTMAErythrocytes3.41(L)3.92 - 5.13 x10(12)/L110/31/2024 4:35 PM UYJPILHCNE38.878.2 - 97.9 fL08/30/2025 4:35 PM CSTSTMARBC Distrib Width14.612.2 - 16.1 %08/30/2025 4:35 PM CSTSTMAPlatelet Jxrny226(H)157 - 371 x10(9)/L110/31/2024 4:35 PM UXWHAZXKvhvfshihi60.2(H)3.4 - 9.6 x10(9)/L 08/30/2025 4:35 PM CSTSTMANeutrophils7.14(H)1.56 - 6.45 x10(9)/L110/31/2024 4:35 PM CSTDHPMLymphocytes2.030.95 - 3.07 x10(9)/L110/31/2024 4:35 PM CSTSTMA Monocytes0.95(H)0.26 - 0.81 x10(9)/L110/31/2024 4:35 PM CSTSTMAEosinophils0.07 0.03 - 0.48 x10(9)/L110/31/2024 4:35 PM CSTSTMABasophils0.030.01 - 0.08 x10(9)/L110/31/2024 4:35 PM CSTSTMASpecimen (Source)Anatomical Location / LateralityCollection Method / VolumeCollection TimeReceived TimeBlood (Blood, Venous)08/30/2025 4:24 PM CST08/30/2025 4:32 PM LAB COORDINATOR Narrative Authorizing ProviderResult TypeResult StatusSergo Hogan M.D.LAB BLOOD ADD-ONFinal ResultPerforming OrganizationAddressCity/State/ZIP CodePhone Number [facility] [address] [place] [address], [facility] [address] [place] [address] * (ABNORMAL) CRP (C-Reactive Protein) (08/30/2025 4:24 PM LAB COORDINATOR)ComponentValueRef RangeTest MethodAnalysis TimePerformed AtPathologist SignatureC-Reactive Protein (CRP), S9.5(H)<5.0 mg/L110/31/2024 5:32 PM CSTDTLSpecimen (Source) Anatomical Location / LateralityCollection Method / VolumeCollection Time Received TimeBlood (Blood, Venous)08/30/2025 4:24 PM CST08/30/2025 4:43 PM LAB COORDINATOR Narrative Authorizing ProviderResult TypeResult Boyd Hogan M.D.LAB BLOOD ADD-ONFinal ResultPerforming OrganizationAddressCity/State/ZIP CodePhone Number [facility] [address] [place] [address], [facility] DTL [facility] [address] [place] [address] * S-TSH (Thyroid-Stimulating Hormone - Sensitive) (08/30/2025 4:24 PM LAB COORDINATOR) ComponentValueRef RangeTest MethodAnalysis TimePerformed AtPathologist SignatureTSH, Sensitive2.00.3 - 4.2 mIU/L110/31/2024 5:32 PM CSTDTLSpecimen (Source)Anatomical Location / LateralityCollection Method / VolumeCollection TimeReceived TimeBlood (Blood, Venous)08/30/2025 4:24 PM CST08/30/2025 4:43 PM LAB COORDINATOR Narrative Authorizing ProviderResult TypeResult Boyd Hogan M.D.LAB BLOOD ADD-ONFinal ResultPerforming OrganizationAddressCity/State/ZIP CodePhone Number [facility] [address] [place] [address] * Lipase (08/30/2025 4:24 PM LAB COORDINATOR)ComponentValueRef RangeTest MethodAnalysis Time Performed AtPathologist SignatureLipase, S3813 - 60 U/L110/31/2024 5:32 PM LAB COORDINATOR DTLSpecimen (Source)Anatomical Location / LateralityCollection Method / Volume Collection TimeReceived TimeBlood (Blood, Venous)08/30/2025 4:24 PM LAB COORDINATOR 08/30/2025 4:43 PM LAB COORDINATOR Narrative Authorizing ProviderResult TypeResult Boyd Hogan M.D.LAB BLOOD ADD-ONFinal ResultPerforming OrganizationAddressCity/State/ZIP CodePhone Number [facility] [address] [place] [address] * ECG 12 Lead (08/30/2025 4:14 PM LAB COORDINATOR)ComponentValueRef RangeTest MethodAnalysis TimePerformed AtPathologist SignatureVentricular Rate ECG/Ufx58UOEAHXVWL Qfawjwzp844xoAMWKVSLF Bfxzyyye66rgNBCDXQ Niojomby483qhQVAQSCK Jijkqcbw948lf MUSEP Vfmu47cebowkyFFYQZ [place]-39degreesMUSET Wave Alzs18irtsmkcTCMWKzcagpzo (Source)Anatomical Location / LateralityCollection Method / VolumeCollection TimeReceived Time08/30/2025 4:14 PM CST08/30/2025 4:21 PM LAB COORDINATOR Impressions MUSE - 08/30/2025 4:21 PM LAB COORDINATOR Normal sinus rhythm Left axis deviation When [...] Nephrostomy Tube Exchange Right (08/30/2025 11:29 AM LAB COORDINATOR)Anatomical Region LateralityModalityGenito Urinary, Vascular Interventional RST LOS, Vascular Interventional ARZ LOS, Vascular Interventional FLA LOSRightX-Ray Angiography Specimen (Source)Anatomical Location / LateralityCollection Method / Volume Collection TimeReceived Time Impressions 08/30/2025 1:25 PM LAB COORDINATOR Routine exchange of the 10-Thai right percutaneous nephrostomy tube. Recommend routine exchange in approximately 12 weeks. NR Narrative 08/30/2025 1:25 PM LAB COORDINATOR EXAM: IR NEPHROSTOMY TUBE EXCHANGE RIGHT CLINICAL HISTORY: ??Routine right nephrostomy tube exchange. TECHNIQUE: ??The patient was placed prone on the fluoroscopy table, and the right flank was preppedand draped in standard sterile fashion. 1% lidocaine was used for local anesthesia. A payer specialist image demonstrated relatively unchanged position of the [...] 1%lidocaine was used for local anesthesia. A payer specialist image demonstratedrelatively unchanged position of the 10-Thai [...] approximately 12 weeks. NR Authorizing ProviderResult TypeResult StatusCharlotfreya Rubio M.D., M.S.IMG IR PROCEDURESFinal Result * (ABNORMAL) Bacterial Culture, Aerobic + Susceptibility, Urine (08/30/2025 9:09 AM LAB COORDINATOR)ComponentValueRef RangeTest MethodAnalysis TimePerformed AtPathologist SignatureUrine CultureENTEROBACTER [...] GENERAL ORDERABLESFinal ResultPerforming OrganizationAddress City/State/ZIP CodePhone Number [facility] [address] [place] [address], [place] DTL [facility] [address] [place] [address] from Last 3 Months Insurance Advance Directives For more information, please contact: [phone] * Full Code (Latest Code Status on File) Date ActivatedDate UhquiorpgawEoffxwld95/18/2025 5:23 PM09/14/2025 2:29 PM QuestionAnswerCommentsFull Code:* Not Discussed Due to:* Patient not available * Full Code Date ActivatedDate InactivatedComments03/06/2025 5:41 PM03/07/2025 6:50 PMQuestion AnswerCommentsFull Code:* Discussed Care Teams Team MemberRelationshipSpecialtyStart DateEnd Date Elsewhere, Pcp PCP - GeneralInternal Medicine04/18/25
--- OUTSIDE RECORDS SUMMARY | 2025-09-26 14:39 | XMS_ITS | Encounter Summary ---
Author Organization [facility] Address [address] [place] [id number] Care Team Providers Care Firearms Instructor Name Role Phone Elsewhere, Pcp Primary Care Provider Unavailabl e Reason for Visit * ReasonOnset DateCommentsPhone Call08/27/2025 Encounter Details DateTypeDepartmentCare Team (Latest Contact Info)Zcyxtxvnrek37/01/2025linical Communication Department of Urology in [place], [place] [address] [place] [address] Rupert Loving M.D. [address] [place] [address] Phone Call Social History Tobacco UseTypesPacks/DayYears UsedDateSmoking Tobacco: NeverSmokeless Tobacco: NeverAlcohol UseStandard Drinks/WeekCommentsNever0 (1 standard drink = 0.6 oz pure alcohol)[facility] UtilitiesAnswerDate RecordedIn the past 12 months has the [employer], oil, or water [employer] threatened to shut off services in your [...] 05/27/2020CommentsNoSex and Gender InformationValueDate RecordedSex Assigned at RnctpKpnqah78/26/2025 10:16 AM CDTLegal XfjHxarel86/02/2017 2:16 PM CSTGender GzddvzdyMraclj64/26/2025 10:16 AM CDTSexual OrientationStraight 02/19/2025 10:16 AM CDTdocumented as of this encounter Miscellaneous Notes * Telephone Encounter - Neetu Simon M.D., M.Ed. - 09/03/2025 4:00 PM BLOCK CUTTER I spoke to the patient. Nephrostomy tube [...] appreciated the call. Neetu Simon MD, MEd K CUTTER * Telephone Encounter - Zandra Romero R.N. [...] for further evaluation. Patient agreeable. Team notified. K CUTTER documented in this encounter Plan of Treatment DateTypeDepartmentCare Team (Latest Contact Info)Binodmrzywz55/03/2026 8:00 AM CSTProcedure visit Department of Urology in [place], [place] [address] [place] [address] Rupert Loving M.D. [address] [place] [address] documented as of this encounter Visit Diagnoses Not on filedocumented in this encounter Additional Health Concerns InfectionOnset DateLast IndicatedResolved TimeMDR GNB109/02/2025 8:44 PM CSTdocumented as of this encounter Care Teams Team MemberRelationshipSpecialtyStart DateEnd Date Elsewhere, Pcp PCP - GeneralInternal Medicine04/18/25documented as of this encounter
--- OUTSIDE RECORDS SUMMARY | 2025-09-26 14:39 | XMS_ITS | Clinical Summary ---
Author Organization [facility] [place] Address [address] [facility] [place] [address] Phone Care Team Providers Care Network Solutions Architect Name Role Phone Joann Motta DO Primary Care Provider [phone] Allergies Active AllergyReactionsCriticalityNoted DateCommentsAce InhibitorsOther (see comments)10/22/20063234OrhubujywoLankucpe52/13/2645CqraealnQqmspeac81/13/2022at DanderOther (see comments)01/31/2015Dust Mite ExtractAnaphylaxis,Other (see comments)High01/31/20157914KipdtkbffysNqdxEmb10/26/7530EhapfkrjvkbuCobxBfn10/09/2025 MetoprololGI intolerance,Nausea,Other (see comments),Palpitations,SwellingLow 03/01/2009 Other Reaction(s): [...] mg by mouth every 30 minutes as jprfzm575Active albuterol HFA (PROVENTIL HFA;VENTOLIN HFA) 108 (90 Base) MCG/ACT inhaler INHALE 2 PUFFS BY MOUTH EVERY 4 TO 6 HOURS NEEDED FOR SHORTNESS OF BREATH OR KEAWUXNN82/04/2025tive hydrocortisone 1 % cream Apply 1 Application topically in the morning and 1 Application in the evening. 5Active ipratropium-albuterol (DUO-NEB) 0.5-2.5 mg/3 mL nebulizer solution USE ONE VIAL IN NEBULIZER EVERY SIX HOURS IQPJUD225Active Active Problems ProblemNoted DateDiagnosed DateParoxysmal atrial yvacxyiprjnh00/12/2025 Assessment & Plan (03/08/2025 3:43 PM CDT): Stable. Follows with I. Sinus rhythm on examination today. Stage 3b chronic kidney bfwbnsl7303/05/2025 Overview (03/07/2025): Creatinine 0.9-1.1 from 8483-6928. Creatinine 1.25 in July 2023 Creatinine in [...] 2025 prior to her planned travel for [place] in July for 6 months to follow. Anemia in chronic kidney sebmvzi5203/05/2025 Overview (03/05/2025): Baseline hemoglobin in the mid [...] renal artery stenosis, all performed at [facility] 2019. Assessment & Plan (07/19/2025 2:23 PM [...] of diuretic to manage. Generalized degenerative joint jwgxtvn9903/05/2025 Encounters DateTypeDepartmentCare LmgpPlaclrkcmcf42/23/2025 2:00 PM CDTOffice Visit [facility] [...] InformationValueDate RecordedSex Assigned at BirthNot on fileLegal NglTmculs37/08/2025 2:21 PM EDTGender Identity Not on fileSexual OrientationNot on file Last Filed Vital Signs Vital SignReadingTime TakenCommentsBlood Jyjnnnye464/7810 1:46 PM CDT Hckxi268007/19/2025 1:46 PM CDTTemperature--Respiratory Rate--Oxygen Pbintlboir93% 07/19/2025 1:46 PM CDTInhaled Oxygen Concentration--Nuxqgh45.9 kg (174 lb) 07/19/2025 1:46 PM JUIUeodrn094.6 cm (5' 4)07/19/2025 1:46 PM CDTBody Mass Index29.8707/19/2025 1:46 PM CDT Plan of Treatment Health MaintenanceDue DateLast DoneCommentsPneumococcal Vaccine: 50+ Years (1 of 2 - PCV)1959Hepatitis B Vaccine (1 of 3 - Risk 3-dose series)2000 Influenza Vaccine (#1)2025 [place] [address] Care Teams Team MemberRelationshipSpecialtyStart DateEnd Date Joann Motta DO [address] [place] [address] PCP - GeneralFamily Medicine02/01/25
--- OUTSIDE RECORDS SUMMARY | 2025-09-26 14:39 | XMS_ITS | Patient Health Record ---
Author Organization [employer] [facility] Address [address] [place] [address] Care Team Providers Care Wave Guide Assembler Name Role Phone Lars EASTON, Unavailable [phone] Eva Agarwal Unavailable Unavailab le Migration, Provider Unavailable Unavailable Reason For Referral No Information Medications Medication SIG (Take, Route, Frequency, Duration) Notes Start Date End Date Status Synthroid 88 MCG Tablet Oral once a day 12/04/2022ctivetraMADol HCl 50 MG OamyvyAptt71/15/2023ctiveXarelto 20 MG PskshySlji89/27/2023ctiveOndansetron 4 MG Tablet AmjrfontckhdqwMrbs77/09/2023 ActiveSotalol HCl 80 MG TabletTake 0.5 tablets (40 mg total) by mouth every 12 (twelve) hours Oral once a day12/28/2022ctiveOmeprazole 20 MG Tablet Delayed Release DisintegratingOral as uxmpvp4312/11/2019ActivehydroCHLOROthiazide 12.5 MG TabletOral as vesynk0612/01/2019ActiveLosartan Potassium 25 MG TabletOral once a day12/11/2019Active [...] Status Risk Notes Problem Essential hypertensi on (76036855) Essential (primary) hypertension (I10) 12/11/2019 Active confirmed ProblemParoxysmal atrial fibrillation (770275516)Paroxysmal atrial fibrillation (I48.0)12/31/2022ctiveconfirmed Encounters Encounter Location Date Provider Diagnosis [facility] [address] [place] [address] 01/27/2025 Provider Migration [facility] [place] [address]Provider Migration Plan Of Treatment No Information Insurance Providers Payer Name Payer Address Payer Phone Subscriber Number Group Number Insured Name Patient Relationship to Insured Coverage Start Date Coverage End Date Medicare Part B [address] [address] [place] [address] [id number] Sergio Singh - patient is the insuredFlori BluePO [address] [place] [id number], GloriaSelf - patient is the insured
--- OUTSIDE RECORDS SUMMARY | 2025-09-26 14:40 | XMS_ITS | Clinical Summary ---
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 Name Role Phone Irma Mandujano MD Primary Care Provider [phone] Allergies Active AllergyReactionsCriticalityNoted DateCommentsAce Vvzwbymamt50/12/2012 Fukslf2509/07/2012Metoprolol Jawdywtny95/12/2012 Medications MedicationSigDispense QuantityRefillsLast FilledStart DateEnd DateStatus vitamin [...] daily.Active Active Problems ProblemNoted DateDiagnosed DateUrinary tract zovfpmvzr95/14/2024iaphragmatic bqiryf9402/17/20244399Imcqp44/23/2024 Overview (02/17/2024): echo w/ EF 60% 01/31 Vitamin D /23/2024enal kctanmcogsxbp15/23/2024Hypertensive urgency 02/17/2024nemia, unspecified type02/17/2024Ureteral stent hxnprmu0902/17/2024 Cbdoor6402/16/2024HI (closed head injury)02/16/2024Mass of right lung02/16/2024 TIA (transient ischemic attack)02/16/20240241Xfwmcm03/29/2024Hydronephrosis with ureteral stricture, not elsewhere avvgkoimkw27/29/2024Long term current use of uwtkcbksfwqzh46/29/2024trial fibrillation, unspecified type12/18/2022 Hypertensive kidney disease, stage V001/05/2022ortic valve regurgitation 12/08/2021Mitral valve jqnjlplniihqu45/14/2022Gastroesophageal reflux disease without uaoagyilqeh71/28/2022hronic fibrosis of lung10/23/2021Essential ynrfimexprgg39/04/2021ong term (current) use of aybwbrd4407/31/2021History of bkzvgzi8106/17/20204744Rswzukbndxzhtm11/05/9400Opvpojnzmatmlg03/27/2020Lung granuloma 03/01/2019 Overview (02/17/2024): CT stable [address] [place] continues to confirm no change 2019 Arthritis of left foot05/24/2018Adjustment disorder with mixed anxiety and depressed mood06/30/2015Insomnia, nxmdlbmpguz95/01/2008 Social History Tobacco UseTypesPacks/DayYears UsedDateSmoking Tobacco: NeverSmokeless [...] building, in an overnight long term, or couch-surfing.)Yes06/10/2024re you worried about losing your [...] InformationValueDate RecordedSex Assigned at BirthNot on fileLegal LpoHxxfxd05/04/2012 3:20 AM CSTGender IdentityNot on file Sexual OrientationNot on file Last Filed Vital Signs Vital SignReadingTime TakenCommentsBlood Pbovuqcd021/65006/12/2024 7:39 AM CDT Jtucm6068/16/2024 7:39 AM UEVFbfrtxwrqfs12.6 ??C (97.8 ??F)06/12/2024 7:39 AM CDTRespiratory Flxt128906/12/2024 7:39 AM CDTOxygen Embkrehphf76%06/12/2024 7:39 AM CDTInhaled Oxygen Concentration--Yckjtw52.9 kg (167 lb 6.4 oz)06/11/2024 7:19 AM SBIHbygbe035 cm (5' 3)02/17/2024 10:23 AM CDTBody Mass Index29.65002/17/2024 10:23 AM CDT Plan of Treatment Health MaintenanceDue DateLast DoneCommentsADVANCE CARE HMANASQT1940ANNUAL REVIEW OF HM INPFUK64 1940ASTHMA ACTION PLAN1940ASTHMA CONTROL TEST 1940 6953HZWRF59/10/8902NSOIXCQCJQLC54/10/2205AKAFLTVYSPF1940PHOSPHORUS 1940ALK PHOS1941FALL RISK QTFUXPSGYD41/10/2005DTAP/TDAP/TD VACCINE (1 - Tdap), 02/26/1988ZOSTER VACCINE (2 of 3)03/22/2008 01/26/2008RSV VACCINE (1 - 1-dose 75+ series)2015MEDICARE ANNUAL WELLNESS VISIT//922627/5229PMBT58////4207IYG08///, 06/11/2024, 02/18/2024, Additional history existsPHQ-2 (once per calendar year) 09/27/20243559UAECMSYTZP98//134799/, 02/17/2024TSH W/FREE T4 REFLEX /OVID-19 VACCINE ( - season)2025INFLUENZA VACCINE (#1)/, 06/24/2015, 07/17/2014, Additional history existsPNEUMOCOCCAL VACCINE 50+ UXMXHVsyhfigjd08/25/2017, 09/15/2005URINALYSIS Yvuxorjyg72/24/2024HPV VACCINE (No Doses Required)CompletedMENINGITIS VACCINE Aged OutNo longer eligible based on patient's age to complete this topic Medical Devices ImplantedTypeAreaManufacturerDevice IdentifierShelf Expiration DateModel / Serial / LotStent Ureteral Polaris Ultra [id number] - [id number] Implanted:Qty: 1 on 06/10/2024 by [facility] [id number] 12/12/[id number] / / [id number] Procedures Procedure NamePriorityDate/TimeAssociated DiagnosisCommentsBASIC METABOLIC PANEL Timed06/12/2024 8:40 AM CDT CBC WITH UBKNSXWMWZstythz56/15/2024 7:03 AM CDT UA MACROSCOPIC WITH REFLEX TO MICRO AND XLKVATZJOOP81/24/2024 11:04 AM CDT TSH WITH FREE T4 REFLEXAdd-On02/17/2024 11:05 AM CDT from Last 3 Months or Most Recently Relevant to Health Maintenance Results * (ABNORMAL) Basic metabolic panel (06/12/2024 8:40 AM CDT)ComponentValueRef RangeTest MethodAnalysis TimePerformed AtPathologist TjfhozjjzVbetoi701038 - 145 mmol/L06/12/2024 9:14 AM CDTS LABORATORYPotassium4.23.4 - 5.3 mmol/L 06/12/2024 9:14 AM CDTSH BICWZUOMHXEkevtedj84655 - 107 mmol/L06/12/2024 9:14 AM CDTS LABORATORYCarbon Dioxide (CO2)2422 - 29 mmol/L06/12/2024 9:14 AM CDT LABORATORYAnion Alk278 - 15 mmol/L06/12/2024 9:14 AM CDTS LABORATORYUrea Bxekgprr35.3(H)8.0 - 23.0 mg/dL06/12/2024 9:14 AM CDTS LABORATORYCreatinine 1.89(H)0.51 - 0.95 mg/dL06/12/2024 9:14 AM CDTS LABORATORYGFR Ryrxonbh33(L) >60 mL/min/1.93v88906/12/2024 9:14 AM CDTS LABORATORYComment:eGFR calculated using 2020 CKD-EPI equation.Calcium9.08.8 - 10.4 mg/dL06/12/2024 9:14 AM CDTS LABORATORYComment:Reference intervals for this test were updated on 04/11/2024 to reflect our healthy population more accurately. There may be differences in the flagging of prior results with similar values performed with this method. Those prior results can be interpreted in the context of the updated reference intervals.Azwvhej879(H)70 - 99 mg/dL06/12/2024 9:14 AM TS LABORATORY Specimen (Source)Anatomical Location / LateralityCollection Method / Volume Collection TimeReceived TimeBloodBLOOD SPECIMEN / UnknownVenipuncture / Rywfbyt2806/12/2024 8:40 AM CDT06/12/2024 8:49 AM CDT Narrative Authorizing ProviderResult TypeResult StatusKirsten Devora Saavedra DOLAB - BLOOD ORDERABLESFinal ResultPerforming OrganizationAddressCity/State/ZIP Code Phone Number LABORATORY [facility] [address], [address] [place] [address], [facility] [phone] * (ABNORMAL) CBC with platelets (06/11/2024 7:03 AM CDT)ComponentValueRef Range Test MethodAnalysis TimePerformed AtPathologist SignatureWBC Count9.84.0 - 11.0 10e3/uL06/11/2024 7:[address] [facility] LABORATORYRBC Count3.00(L)3.80 - 5.20 10e6/uL06/11/2024 7:[address] [facility] LABORATORYHemoglobin9.0(L)11.7 - 15.7 g/dL 06/11/2024 7:[address] [facility] GBEENCQOQVSbzpallkdy48.9(L)35.0 - 47.0 %06/11/2024 7:[address] [facility] FIPZSUJSAIYRH3352 - 100 fL06/11/2024 7:24 AM TS LABORATORYH 30.026.5 - 33.0 pg06/11/2024 7:[address] [facility] WIICDLLQAAKUYZ34.331.5 - 36.5 g/dL 06/11/2024 7:[address] [facility] BXRKMHYOXJAML12.5(H)10.0 - 15.0 %06/11/2024 7:[address] [facility] LABORATORYPlatelet Nqmxz996591 - 450 10e3/uL06/11/2024 7:[address] [facility] LABORATORYSpecimen (Source)Anatomical Location / LateralityCollection Method / VolumeCollection TimeReceived TimeBloodSTRUCTURE OF RIGHT HAND / Unknown Venipuncture / Tnjnrdb5306/11/2024 7:03 AM CDT06/11/2024 7:22 AM CDT Narrative Authorizing ProviderResult TypeResult StatusMicvicente Reardon DOLAB - BLOOD ORDERABLESFinal ResultPerforming OrganizationAddressCity/State/ZIP CodePhone Number LABORATORY [facility] [address], [address] [place] [address], [facility] [phone] * (ABNORMAL) UA Macroscopic with reflex to Microscopic and Culture (02/18/2024 11:04 AM CDT)ComponentValueRef RangeTest MethodAnalysis TimePerformed At Pathologist SignatureColor UrineStrawColorless, Straw, Light Yellow, Yellow 02/18/2024 11:[address] [facility] LABORATORYAppearance JpmgjFnnhpQgvex47/24/2024 11:[address] [facility] LABORATORYGlucose UrineNegativeNegative mg/dL02/18/2024 11:33 AM [facility] LABORATORYBilirubin UnefoQxcwzoqvDphphjqb46/24/2024 11:[address] [facility] LABORATORYKetones UrineNegativeNegative mg/dL02/18/2024 11:[address] [facility] LABORATORYSpecific [place] Urine1.0111.003 - 1.2478902/18/2024 11:[address] [facility] LABORATORYBlood UrineTrace(A)Kzoqupzd70/24/2024 11:[address] [facility] LABORATORYpH Urine6.55.0 - 7.005 11:[address] [facility] LABORATORYProtein Albumin Urine NegativeNegative mg/dL02/18/2024 11:[address] [facility] LABORATORYUrobilinogen Urine NormalNormal, 2.0 mg/dL02/18/2024 11:[address] [facility] LABORATORYNitrite Urine ZhmemeonJalhiqus49/24/2024 11:[address] [facility] LABORATORYLeukocyte Esterase Urine Moderate(A)Ftofytor18/24/2024 11:[address] [facility] LABORATORYRBC Urine4(H)<=2 /HPF 02/18/2024 11:33 AM CDTS LABORATORYWBC Urine8(H)<=5 /HPF02/18/2024 11:33 AM CDTSH LABORATORYSquamous Epithelials Urine<1<=1 /HPF02/18/2024 11:33 AM CDTS LABORATORYSpecimen (Source)Anatomical Location / LateralityCollection Method / VolumeCollection TimeReceived TimeUrineMID-STREAM URINE SPECIMEN / UnknownNon- blood Collection / Psckrws7602/18/2024 11:04 AM CDT02/18/2024 11:24 AM CDT Narrative LABORATORY - 02/18/2024 11:33 AM CDT Urine Culture ordered based on laboratory criteria Authorizing ProviderResult TypeResult StatusNicginny Renteria NPLAB - URINE ORDERABLESFinal ResultPerforming OrganizationAddressCity/State/ZIP Code Phone Number LABORATORY [facility] [address], [address] [place] [address], [facility] [phone] * TSH with free T4 reflex (02/17/2024 11:05 AM CDT)ComponentValueRef RangeTest MethodAnalysis TimePerformed AtPathologist SignatureTSH1.380.30 - 4.20 uIU/mL 02/17/2024 2:[address] [facility] LABORATORYSpecimen (Source)Anatomical Location / LateralityCollection Method / VolumeCollection TimeReceived TimeBloodBLOOD SPECIMEN / UnknownVenipuncture / Qgkakqk1602/17/2024 11:05 AM CDT02/17/2024 11:10 AM CDT Narrative Authorizing ProviderResult TypeResult StatusEric Hitesh Moss DOLAB - BLOOD ORDERABLESFinal ResultPerforming OrganizationAddressCity/State/ZIP Code Phone Number LABORATORY [facility] [address], [address] [place] [address], [facility] [phone] from Last 3 Months or Most Recently Relevant to Health Maintenance Insurance Advance Directives For more information, please contact: [phone] * Full Code (Latest Code Status on [...] Date Irma Mandujano MD [address] [place] [address] [facility]02/23/24
--- OUTSIDE RECORDS SUMMARY | 2025-09-26 14:40 | XMS_ITS | Encounter Summary ---
Author Organization [facility] Address [address] [place] [address] Care Team Providers Care Scratch Polisher Name Role Phone Elsewhere, Pcp Primary Care Provider Unavailabl e Encounter Details DateTypeDepartmentCare Team (Latest Contact Info)Udsfamssafg48/19/2025linical Communication Department of Urology in [place], [place] [address] [place] [address] Dre Barcenas Social History Tobacco UseTypesPacks/DayYears UsedDateSmoking Tobacco: NeverSmokeless Tobacco: NeverAlcohol UseStandard Drinks/WeekCommentsNever0 (1 standard drink = 0.6 oz pure alcohol)Humiliation, Afraid, Rape, and Kick questionnaireAnswerDate RecordedWithin the last year, have you been afraid of your partner or ex-partner?Patient unable to kfsdbb0609/13/2025Within the last year, have you been humiliated or emotionally abused in other ways by your partner or ex-partner? Patient unable to rmtzxf8309/13/2025Within the last year, have you been kicked, hit, slapped, or otherwise physically hurt by your partner or ex-partner?Patient unable to pbhtsz1309/13/2025Within the last year, have you been raped or forced to have any kind of sexual activity by your partner or ex-partner?Patient unable to qtlcyp7609/13/2025Hunger Vital SignAnswerDate RecordedWithin the past 12 months, [...] have received?Associate degree: occupational, technical, or vocational topznzx5605/27/2020Comments NoSex and Gender InformationValueDate RecordedSex Assigned at BirthFemale 02/19/2025 10:16 AM CDTLegal TmuZkfvma11/02/2017 2:16 PM CSTGender Identity Vzkmmj0102/19/2025 10:16 AM CDTSexual EkpdpcmsnjzBgtlpwpu00/26/2025 10:16 AM CDT documented as of this encounter Plan of Treatment DateTypeDepartmentCare Team (Latest Contact Info)Lvvkegevqes25/03/2026 8:00 AM CSTProcedure visit Department of Urology in [place], [place] [address] [place] [address] Rupert Loving M.D. [address] [place] [address] documented as of this encounter Visit Diagnoses Not on filedocumented in this encounter Care Teams Team MemberRelationshipSpecialtyStart DateEnd Date Elsewhere, Pcp PCP - GeneralInternal Medicine04/18/25documented as of this encounter
--- OUTSIDE RECORDS SUMMARY | 2025-09-26 14:40 | XMS_ITS | Data Portability ---
Author Organization [place] - [facility], [facility] Address [address] [place] [address] Care Team Providers Care Space Physicist Name Role Phone BRIAN HURD Referring Provider [phone] Assessment Encounter Date Assessment Date Assessment LastModified by Organization Details LastModified Time 01/18/2024 01/18/2024 83 Y/O FEMALE, H X OF RT HYDRONEPHROSIS, UTI, EARLY SEPSIS AND PLACEMENT OF A RT URETERAL STENT IN [place]. U/C POS WITH HORTON SENSITIVE ECOLI . NOW BACK TO BASELINE. C.T. 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 REVIEWED EXTENSIVE RECORDS, LABS FROM [place]. PLAN WILL SCHEDULE CYSTO, RT RETROGRADE AND REEVALUATE UPJ AND POSSIBLE STENT EXCHANGE.PROCEDURE EXPLAINED IN DETAIL. ALL QUESTIONS ANSWERED. tlezsgy7Ngk /23/2024 22:00:3207/// Y/O FEMALE, HX RT FLANK PAIN, [...] WEEK AND MAKE A DECISION. TIME 1 H.tqhwmqv8Gqw /03/2024 12:46:0///F with right UPJ obstruction. 1) [...] or nephrectomy 2) Urinary freq/urgency - [facility] okzfkocmq83/09/2024 18:34:18 Plan of Treatment Reminders Order DateSubmit DateProviderLast Modified ByRandall DetailsLast Modified TimeDetailsAppointmentsNone recorded.LabNone recorded.ReferralNone recorded. ProceduresNone recorded.SurgeriesNone recorded.ImagingNone recorded.Medication OrdersNone recorded. Patient TargetsNo targets recorded. Patient InstructionsNo instructions recorded. Reason for Referral None Reported. Results Created Date Observation Date Name Description Value Unit Range Abnormal Flag Note LastModifiedBy Organization Detail LastModifiedTime 03/15/2024 03/15/2024 NM, kidney scan No observation recorded.[facility] [address] [place], [address], 06/ 16:15:30 XR, kidney + ureter + bladderEXAM: XR, KIDNEY + URETER + BLADDER LOCATION: [facility] DATE: 06/29/2024 INDICATION: Crossing vessel and stricture [...] by: Adan Mijares MD on 06/29/2024 at 10:99fyvpxcmq72Zdgoaeu Radiology - [facility] [place] [address], [place], [address], 07/04/2024 18:02:3210ladder scan (PROC)No observation recorded.BARCODENot Nkvhgqigg28/03/2024 16:34:00 Result Notes Documentation Provider Name and Address Organization Details Recorded Time Xr, Kidney + Ureter + Bladder : EXAM: XR, KIDNEY + URETER + BLADDER LOCATION: [facility] DATE: 06/29/2024 INDICATION: Crossing vessel and stricture [...] on 06/29/2024 at 10:45 Maddie Odell PA-C [address] [place] [address],[address] [place] [address], [phone], [facility] 07/04/2024 18:02:32 Problems Name Problem SNOMED Code Status Onset Date Resolution Date Notes Provider Name and Address Organization Details Recorded Time Obstruction of pelviureteric junction 85296394 Active 01/18/2024 Stone Sage MD [address] [place] [address],[address], [address], [facility] Tvysede8601/18/2024 22:00:81Zttzqamqucyile88516807Tytoro26/03/2024 Stone Sage MD [address] [place] [address],[address], [address], [facility] Dbczksv6503/29/2024 12:46:39Essential ckxfpyhfpylt12802363Zoxajr 07/03/202Gian Sage MD [address], [place], [address], [facility] [place] Zpucvxn8603/29/2024 12:46:47 Problem Notes None recorded. Procedures Surgical History Date Name Laterality Status Provider Name and Address Organization Details Recorded Time 06/29/2024 Bladder Scan completedUna Palomino - [place] Dkxelly69/03/2024 12:00:33 Imaging Results None recorded. Procedure Notes None recorded. Medical Equipment None Reported. Allergies No known drug allergies Medications Name Sig Start Date Stop Date Status Note LastModified by Organization Details LastModified Time nebulizer tubing t399fxf DIRECTED. REPLACE MA SK AND TUBING EVERY 6 MONTHS. 01/18/2024ompletedNot AvailableNot AvailableNot Availablecompair xlt compre cmpressrUSE EFPGQLTN16/23/2024ompletedNot AvailableNot AvailableNot Availablelosartan 50 mg tabletTAKE 1 TABLET (50 MG) BY MOUTH TWICE A DAYactive Not AvailableNot AvailableNot Availablecyclobenzaprine 10 mg tabletTAKE 1 TABLET (10 MG) BY MOUTH AT BEDTIME IF NEEDED FOR MUSCLE SPASM.07/05/2024ompletedNot AvailableNot AvailableNot Availablealbuterol sulfate 2.5 mg/3 mL (0.083 %) solution for nebulizationINHALE 3 ML (2.5 MG) VIA A NEBULIZER EVERY 4 HOURS IF NEEDED FOR COUGH.activeNot AvailableNot AvailableNot Availableamlodipine 5 mg tabletTAKE 2 TABLETS (10 MG) BY MOUTH ONCE DAILY.07/05/2024ompletedNot AvailableNot AvailableNot Availabletramadol 50 mg tabletTAKE 1 TABLET (50 MG) BY MOUTH TWO TIMES DAILY.03/28/2024ompletedNot AvailableNot AvailableNot Available cefadroxil 500 mg capsuleTAKE 1 CAPSULE (500 MG) BY MOUTH TWO TIMES DAILY FOR 7 DAYS.07/05/2024ompletedNot AvailableNot AvailableNot Availableoxycodone- acetaminophen 5 mg-325 mg tabletTAKE ONE TABLET BY MOUTH EVERY 6 HOURS IF NEEDED FOR SEVERE PAIN FOR UP TO 3 DAYS01/18/2024ompletedNot AvailableNot AvailableNot Availableprednisolone acetate 1 % eye drops,suspensionINSTILL 1 DROP INTO EACH EYE EVERY MORNING FOR ONE WEEK01/18/2024ompletedNot AvailableNot AvailableNot Availablecephalexin 500 mg capsuleTAKE 1 CAPSULE (500 MG) BY MOUTH THREE TIMES DAILY FOR 7 DAYS.07/05/2024ompletedNot AvailableNot AvailableNot Available Synthroid 88 mcg tabletTAKE 1 TABLET (88 MCG) BY MOUTH BEFORE BREAKFAST.active Not AvailableNot AvailableNot Availablehydrochlorothiazide 12.5 mg capsuleTAKE ONE CAPSULE BY MOUTH ONE TIME DAILY01/18/2024ompletedNot AvailableNot Available Not Availableomeprazole 20 mg capsule,delayed releaseTAKE ONE CAPSULE BY MOUTH EVERY DAY NEEDED.01/18/2024ompletedNot AvailableNot AvailableNot Available hydrochlorothiazide 25 mg tabletTAKE 1/2 TABLET BY MOUTH ONCE DAILY.07/05/2024 completedNot AvailableNot AvailableNot Availablecefuroxime axetil 500 mg tablet TAKE ONE TABLET BY MOUTH TWICE A DAY NEEDED. TAKE NEEDED FOR SIGNS OR SYMTOMS OF URINARY TRACT NVIBEPJGK95/02/2024ompletedNot AvailableNot Available Not Availablemethylprednisolone 4 mg tablets in a dose packTAKE DIRECTED ON QXYQYLF9701/18/2024ompletedNot AvailableNot AvailableNot Availableondansetron 4 mg disintegrating tabletDISSOLVE 1 TABLET ON THE TONGUE EVERY 8 HOURS NEEDED FOR NAUSEA AND BQKVHXZA02/23/2024ompletedNot AvailableNot AvailableNot Availableoxycodone 5 mg tabletTAKE 1 TABLET BY MOUTH EVERY 6 HOURS NEEDED FOR PAIN01/18/2024ompletedNot AvailableNot AvailableNot Availablemetoprolol tartrate 25 mg tabletTAKE ONE TABLET BY MOUTH TWICE A DAY - MAY TAKE AN ADDITIONAL TABLET FOR PALPITATIONS - DO NOT TAKEMORE THAN ONE EXTRA DOSE IN 24 HOURS01/18/2024ompletedNot AvailableNot AvailableNot Available hydrochlorothiazide 12.5 mg cvnbdt9303/28/2024ompletedNot AvailableNot Available Not Availablepeg 3350-electrolytes 236 gram-22.74 gram-6.74 gram-5.86 gram solutionDRINK 4,000 ML BY MOUTH ONE TIME FOR 1 DOSE YQIYAEOD55/23/2024 completedNot AvailableNot AvailableNot AvailableXarelto 20 mg tabletTAKE ONE TABLET BY MOUTH EVERY DAY01/18/2024ompletedNot AvailableNot AvailableNot AvailableGemtesa 75 mg tabletTake 1 tablet every day by oral route.06/29/2024 07/05/2024ompletedNot AvailableNot AvailableNot Available Vitals Date Recorded Body height Body mass index (BMI) Body weight Provider Name and Address Organization Details Last Updated DateTime 01/18/2024 160.02 cm 29.1 kg/m2 91016.15 german Sage MD [address] [place] [address] Urology 01/18/2024 16:03:19 Date Recorded Body height Body mass index (BMI) Body weight Provider Name and Address Organization Details Last Updated DateTime 03/28/2024 160.02 cm 29.1 kg/m2 73664.15 german Sage MD [address] [place] [address] Urology 03/28/2024 16:45:08 Date Recorded Body height Body mass index (BMI) Body weight Provider Name and Address Organization Details Last Updated DateTime 07/05/2024 157.48 cm 29.4 kg/m2 84009.37 german Keenan cheney MD, PHD [address] [place] [address] Urology 07/05/2024 12:27:15 Social History Question Answer Notes LastModified by Organization D etails LastModified Time Tobacco Smoking Status Never Smoker Stone Sage MD [address] [place] [address] Kytkhik5801/18/2024 16:04:53What Was The Date Of Your Most Recent Tobacco Screening?07/05/2024moshaughnessyInformation not yibglotbz39/09/2024 Sex: Unknown Functional Status Question Answer Note LastModified by Organization D etails LastModified Time What is your level of alcohol consumption? None lyeygno5Hyqukhwvbfc not wanfbuydk56/23/2024 Mental Status None recorded. Family History Nothing [...] PPV23 09/15/2005 complet ed Stone Sage MD [address] [place] [address],[address] [place] [address], [phone], [facility]01/18/2024 16:03:41Pneumococcal conjugate PCV 13004/20/2017 Liza Sage MD [address] [place] [address],[address] [place] [address], [phone], [facility]01/18/2024 16:03:41zoster live01/26/2008comОлег Sage MD [address] [place] [address],[address] [place] [address], [phone], [facility]01/18/2024 16:03:41Influenza, high-dose, trivalent, PF 06/24/2015comОлег Sage MD [address] [place] [address],[address] [place] [address], [phone], [facility]01/18/2024 16:03:41Influenza, high-dose, trivalent, PF 07/17/2014completRj Sage MD [address] [place] [address],[address] [place] [address], [phone], [facility]01/18/2024 16:03:41Influenza, split virus, trivalent, hwchtirrcbir52/29/2013comОлег Sage MD [address] [place] [address],[address] [place] [address], [phone], [facility]01/18/2024 16:03:41Td (adult), 5 Lf tetanus toxoid, preservative free, hufwzqdr17/01/2008comОлег Sage MD [address] [place] [address],[address] [place] [address], [phone], [facility]01/18/2024 16:03:41 Past Encounters Encounter ID Performer Location Encounter Start Date Encounter Closed Date Diagnosis/Indication Diagnosis SNOMED-CT Code Diagnosis ICD10 Code Diagnosis IMO Codes Diagnosis Note [id number] Stone Sage MD [facility] [address] [place] [address] 01/18/2024 15:50:30 01/19/2024 11:20:30 Obstruction of pelviureteric junction 64713503 N13.5 [id number] [facility] [address] [facility] [place] [address] 03/28/2024 16:36:27004/07/2024 11:48:32Obstruction of pelviureteric junction 00264492Z52.5 Aguihrqdvpjnot70280466A49.30 Essential oukmqjqbmmop97395134V78 [id number] Brown [address] [facility] [place] [address] 06/29/2024 11:10:121 11:18:35Obstruction of pelviureteric junction 92428867M94.5 [id number] Sharpe MD, PHDUA_[facility] [address] [facility] [place] [address] 07/05/2024 12:20: 13:01:56Obstruction of pelviureteric junction 06525206G11.5 Stfdwndrfzxwek85416823H18.30 Essential sjdmsxpmybrq46484336I10 Health Concerns Section Related Observation LastModified by Organization Detai ls LastModified Time None Recorded Concern Status LastModified by Organization Details LastModified Time None Recorded Advance Directives Directive None Recorded Payers Insurance Date Sequence Insurance Name Policy Number Policy Schaffer Covered Member ID Schaffer Member ID Guarantor Name 07/04/2024 2 [place]IC[place]: [employer] Sun J [id number] J [id number]-YC: [employer] BLUE - MEDICARE [id number] J [id number] J AbfFtxxh97/08/2024 [id number] J [id number] J Mitchell Notes Date Note Type Note Provider Name and Address Orga nization Details Recorded Time 01/18/2024 text/html 83 YOF HERE FOR HYDRONEPHROSIS FOLLOWUP. WENT INTO ER, FOUND TO HAVE INFECTION AND SEVERE RIGHT HYDRONEPHROSIS. SUSPECTED RT UPJ OBSTRUCTION .STENT PLACED ABOUT 3 WEEKS AGO IN [place]. ECOLI UTI. SPENT 4 DAYS IN THE HOSPITAL..NOW BACK TO BASELINE. 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 HAD A STENT PLACED IN [place] AND RESPONDED WELL TO ANTIBIOTICS.. HOWEVER, SHE [...] FUNCTION. 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 Here with family. Some frequency/urgency and bladder spasms with stent. Had stent removed in February due to ?HTN. 06/10/24: right stent replaced due to pain and UTI Imagin03/15/24: NM Renal scan: 21.4%R, 78.6%L1: KUB: stent in position PSH: jose alfredo hughes, sophiaalKeenan Sharpe MD, PHD [address] [place] [address],[address], [place], [address], [facility] Djqmyhd10/09/2024 18:34:27 OBGyn Episode No OBEpisode recorded.
--- OUTSIDE RECORDS SUMMARY | 2025-09-26 14:40 | XMS_ITS | Clinical Summary ---
Author Organization [facility] Address [address] [place] [address] Care Team Providers Care Range Aide Name Role Phone Kalia Joann HOPKINS Primary Care Provider Zachariah Porter MD Unavailable [phone] [place] Unavailable Unavailable Allergies Active AllergyReactionsCriticalityNoted DateCommentsAce InhibitorsCough 10/22/20069375DblwtzzdhwLkabb11/13/2025at DcvzjhYniixbkq47/07/2015pixabanDiarrhea 07/09/2022House Dust*Siloopd1501/31/20153131CvkcoiyoenxfGssaNwy99/09/2025Hyoscyamine Rash10/22/2006MetoprololBradycardia,Edema,GI Upset03/01/2009 Reflux, leg swelling Medications MedicationSigDispense [...] Problems ProblemNoted DateDiagnosed DateStage 3 chronic kidney czebnsd6008/08/2025 Overview (08/08/2025): AI Summary: The patient had [...] 06/04/25: Orders Only - Department of Radiology, [facility], in [place], [place], Radiology(from [facility]) 03/08/25: Office Visit - [facility] [place] [place], Nephrology (from [facility] [place]) 03/06/25: Hospital Encounter - [facility], [facility], Fourth Floor, Telemetry Elias (from [facility]) 06/18/20: Comprehensive Visit - Division of Pulmonary Medicine in [place], [place], Pulmonary Medicine (from [facility]) 06/17/20: Hospital Encounter - Department of Laboratory Medicine and Pathology, [place], [place], Laboratory Medicine (from [facility]) Recent notes: 03/08/25: Progress Notes by Zacahriah Porter MD (from [facility] [place]) ... [+] Stage 3b chronic kidney disease (HCC) - Primary ... [+] Stage 3b chronic kidney disease (HCC) 03/07/25: Miscellaneous Notes - Assessment & Plan Note by Zachariah Porter MD (from [facility] [place] [place]) ... [+] Associated Problem(s): Stage 3b chronic kidney disease (HCC) 06/17/20: Consultation Note - Consult Notes (from [facility]) ... [+] #2 Hypertension And Chronic Kidney Disease Stage 3 (HCC) Anemia in chronic kidney aivyfej6103/05/2025 Overview (05/02/2025): Baseline hemoglobin in the mid tens-11 range. Ferritin 125 in April 2023 Most recent hemoglobin 10.5 from December 2023. Senile orzjwrwmaw32/03/2025Diastolic congestive heart failure, unspecified HF xojrqeolnm77/13/2024hronic obstructive pulmonary disease, unspecified COPD type 03/09/2024therosclerosis of aorta03/09/2024enal yqnbtgdqprbcp46/23/2024 Disorder of kidney and ureter, favlrbhaeew28/23/2024HI (closed head injury) 02/16/2024Elevated blood pressure xoshsqk1502/16/2024Mass of right lung02/16/2024 Tcgcpuseikie41/22/1876Tzosox88/22/2024TIA (transient ischemic attack)02/16/2024 Hlqctx9412/24/2023Hydronephrosis with ureteral stricture, not elsewhere classified 12/24/2023UPJ stricture, /29/2024Hypertensive kidney disease, stage V 2Aortic valve fpfyftawtttso91/14/2022Mitral valve regurgitation 12/08/2021hronic fibrosis of lung10/23/2021Long term (current) use of aspirin 1Paroxysmal A-fib07/05/2020 Overview (07/05/2020): happened during her stress test. History of fycayll2906/17/2020Lung zdjpephtz44/05/2019 Overview (07/05/2020): CT stable [address] [place] continues to confirm no change 2019 Arthritis of left foot05/24/2018Adjustment disorder with mixed anxiety and depressed mood06/30/2015Other chronic nonalcoholic liver vhcjnrc9003/20/2008 Encounter for long-term (current) use of other ysjvatqxacs99/02/2008Insomnia, piwdkvstqwz71/01/2008HypothyroidismDiaphragmatic hernia without mention of obstruction or gangreneEsophageal refluxHyperlipidemiaEdema Overview (03/10/2008): echo w/ EF 60% 01/31 Vitamin D deficiency Resolved Problems ProblemNoted DateDiagnosed DateResolved DateAnticoagulation monitoring, INR range 2-310 Overview (07/13/2022): 07/13/22 Transition from Eliquis to Warfarin Chest pain, eblmrsnzsap10 Overview (09/02/2007): angiogram: trivial coronary artery disease Unspecified sleep apnea01/04/2008 Overview (09/02/2007): uses CPAP Unspecified essential wcjhabacbmms47/27/2012 Encounters DateTypeDepartmentCare AmbeKyalvktmepf24/31/2025Nurse Triage [address] [address] Joann Motta DO Covid-19 Positive Wyfuol0309/24/2025Orders Only [facility] Scanner 1 scan: (1-Ord) [facility], CT ABDOMEN PELVIS WO CON, 09/24/2025 09/11/2025Telephone [address] [address] Joann Motta DO Prior Authorization (tiotropium (SPIRIVA HANDIHALER) 18 mcg inhalation capsule) 09/07/2025Results Follow-Up [address] [address] Joann Motta DO 09/06/2025 2:30 PM CSTOffice Visit [address] [address] Joann Motta DO Follow Up (Questions about using volteran gel for foot - dr. Hazel wanted to confirm ok with her kidneys )09/06/20259990Ozaepb47/10/2062Mdzrmh94/09/2025 1:45 PM CSTOffice Visit [facility] [address] [place] [address] Chris Hazel, DPM Consult (Bilateral foot pain, L>R)09/03/20250145Wafthc48/12/2025 1:45 PM HOME COMFORT ADVISOR Ancillary Procedure [facility] [address] [place] [address] 08/08/2025 1:15 PM CSTOffice Visit [facility] [address] [place] [address] Joann Motta DO Hospital F/U (08/03, Foot drop, Left Hip pain )08/08/20252719Pxkcrw15/07/2025Orders Only [facility] Scanner 1 scan: (1-Ord) [facility], US VENOUS LE LT, 5110/03/2024Orders Only [facility] Scanner 1 scan: (1-Ord) [facility] LT WO CON, 5110/03/2024Orders Only [facility] Scanner 1 scan: (1-Ord) [facility] LT MIN 2V, 51 2:00 PM CDTOffice Visit [facility] [address] [address] Jose Eduardo Ybarra MD CV General Cardiology Est (Paroxysmal A-fib (HC)/Joann Motta DO/)07/05/2025 Dokrrz3407/04/2025 3:45 PM CDTOffice Visit [facility] [address] [place] [address] Joann Motta DO Neck Pain/problem (RIGHT neck pain - has had previous neck injections ); Diarrhea (X1 day - had chills and explosive stools )07/04/2025Telephone [facility] [address] [facility] [address] [place] [address] Jose Flores, Cakgpwtpc75/07/9739Harxhz86/06/2025Travelfrom Last 3 Months Immunizations ImmunizationAdministration DatesNext DueInfluenza Virus, Tvykjgnvswh98/20/2016, 06/24/2015,07/17/2014,07/25/2013Influenza, High-dose Eeiqkibheur63/20/2016, 06/24/2015,07/17/2014Influenza, IIV3 (Age >=3 years)07/25/2013,08/13/2008 Pneumococcal Poly,23-Valent [...] = 0.6 oz pure alcohol)rarePHQ-2AnswerDate RecordedPHQ-2 TOTAL WYPZX256Social ConnectionsAnswerDate RecordedDo you often feel lonely or isolated from those around you?lcohol UseAnswerDate RecordedHow often do you have a drink containing alcohol?How many drinks containing alcohol do you have on a typical day when you are drinking?How often do you have five or more drinks on one occasion?Financial Resource StrainAnswer Date RecordedDifficulty of Paying Living Ncbncplu053/08/2025Difficulty of Paying Living ExpensesNot on file02/01/2025Food InsecurityAnswerDate [...] on fileNot on file Obstetrics History GravidaParaTermPretermABIABSABEctopicMultipleLivingLive Hkmwdt570263DgvtSdwrisw GATotal LaborLabor/2nd/2whOfiwzsSyvCcgwFlgqJLYJwdF2T3NjvpVvzm81/14/1962TermFVag AwoiwsIddc06/01/1589OcupVYyxYdqt45/10/0583XejzPHsyCex14/19/6819Lfffmyx78l5yXPux LivingEricCommentsFOUR LIVE BIRTHS AND ONE ADOPTION Last Filed Vital Signs Vital SignReadingTime TakenCommentsBlood Zvoajmzc967/7212 2:37 PM HOME COMFORT ADVISOR Zefzq169609/06/2025 2:37 PM CVSLwarsbrdfiw52.6 ??C (97.9 ??F)04/12/2025 1:03 PM CDTRespiratory Gijs626803/03/2025 12:17 PM CDTOxygen Gbqrzuyrmz06%09/06/2025 2:37 PM CSTInhaled Oxygen Concentration--Rsxtvc23.9 kg (174 lb)07/05/2025 2:00 PM CDT Wqgydy484.6 cm (5' 4)07/05/2025 2:00 PM CDTBody Mass Index29.8707/05/2025 2:00 PM CDT Plan of Treatment DateTypeDepartmentCare Team (Latest Contact Info)Qqojjjsvtjr22/25/2026 1:40 PM CSTOffice Visit [facility] [address] [place] [address] Ricky Canada MD [address] [place] [address] Health MaintenanceDue DateLast DoneCommentsZoster (shingles) series for age 50+ (2 of 3)RSV vaccine for adults or (1 - 1-dose 75+ series)2015Tetanus obgcppk62, 01/26/2008, 02/26/1988 COVID-19 vaccine series ( season)2025Influenza Vaccine (#1) /, 09/15/2016, 06/24/2015, Additional history exists Depression screening for age 12+, 07/25/2024, 01/05/2022, Additional history existsMedicare Wellness for age 65+/, 2BMI (ht and wt on same day) for age 18+, 03/26/2025, 07/25/2024, Additional history existsDEXA/DXA scan for age 65+ Xzwttvxpi87/03/2009Pneumococcal series for age 50+Tfzwfsnrb47/25/2017, 09/15/2005Hepatitis B series for 19+Aged OutNo longer eligible based on patient's age to complete this topic Procedures Procedure NamePriorityDate/TimeAssociated DiagnosisCommentsSCAN-CT QNUMZZWQOXAMXH61/29/2025 12:00 AM GUEEMNSXOADTEZftuxsj85/11/2025 3:02 PM HOME COMFORT ADVISOR Anemia of chronic disease RGUMIEHKZXcshsma55/11/2025 3:02 PM HOME COMFORT ADVISOR Renal insufficiency XR FOOT 3 VIEWS DRFWRasqrcc31/12/2025 2:29 PM HOME COMFORT ADVISOR Foot pain, left URIC DFCOYhtshtf16/12/2025 2:04 PM HOME COMFORT ADVISOR Foot pain, left SCAN-ULTRASOUND WMKWDR1408/03/2025 12:00 AM HOME COMFORT ADVISOR SCAN-CT QMHIVOJOZIUYMI13/07/2025 12:00 AM CSTSCAN-RADIOLOGY SDOZRC1308/03/2025 12:00 AM HOME COMFORT ADVISOR URINALYSIS INEMQBKQWKAUDYL95/08/2025 4:19 PM CDT Suprapubic pain URINE KEDBXTQHwxgfkp07/08/2025 4:19 PM CDT Suprapubic pain URINALYSIS MACROSCOPIC - [facility] ONLY POC DIP ([facility])Arvxbcs0307/04/2025 4:19 PM CDT Suprapubic pain XR DXA BONE DENSITY 2 SITES KSNZXMqkwmxn22/03/2009 Osteoporosis Screening from Last 3 Months or Most Recently Relevant to Health Maintenance Results * SCAN-CT INTERPRETATION (09/24/2025 12:00 AM HOME COMFORT ADVISOR) Only the most recent of2 resultswithin the time period is included. Anatomical RegionLateralityModalityOther Narrative Authorizing ProviderResult TypeResult StatusScannerOTHERFinal Result * (ABNORMAL) HEMOGLOBIN (09/06/2025 3:02 PM HOME COMFORT ADVISOR)ComponentValueRef RangeTest MethodAnalysis TimePerformed AtPathologist SignatureHEMOGLOBIN9.5(L)11.7 - 15.5 g/dL09/07/2025 3:47 AM CSTQUEST ZAZYVBKNOSNATY69.981.4 - 101.7 fL 09/07/2025 3:47 AM CSTQUEST DIAGNOSTICSSpecimen (Source)Anatomical Location / LateralityCollection Method / VolumeCollection TimeReceived TimeBloodBLOOD SPECIMEN / UnknownQuest Collect / Ubvydmj6409/06/2025 3:02 PM CST09/06/2025 3:02 PM HOME COMFORT ADVISOR Narrative Authorizing ProviderResult TypeResult StatusAdei Александрqra DOHEMATOLOGYFinal Result Performing OrganizationAddressCity/State/ZIP CodePhone Number [facility] [address] [place] [address], [place] [phone] * POTASSIUM (09/06/2025 3:02 PM HOME COMFORT ADVISOR)ComponentValueRef RangeTest MethodAnalysis TimePerformed AtPathologist SignaturePOTASSIUM5.03.5 - 5.3 mmol/L111/08/2024 5:07 AM CSTQUEST DIAGNOSTICSSpecimen (Source)Anatomical Location / Laterality Collection Method / VolumeCollection TimeReceived TimeBloodBLOOD SPECIMEN / UnknownQuest Collect / Clvhfqj9409/06/2025 3:02 PM CST09/06/2025 3:02 PM HOME COMFORT ADVISOR Narrative Authorizing ProviderResult TypeResult StatusAdei Shaqra DOCHEMISTRYFinal Result Performing OrganizationAddressCity/State/ZIP CodePhone Number [facility] [address] [place] [address], [place] [phone] * XR FOOT 3 VIEWS LEFT (08/08/2025 2:29 PM HOME COMFORT ADVISOR)Anatomical RegionLaterality ModalityFEET, FOOT LComputed RadiographySpecimen (Source)Anatomical Location / LateralityCollection Method / VolumeCollection TimeReceived Time08/08/2025 2:42 PM HOME COMFORT ADVISOR Impressions 08/08/2025 2:42 PM HOME COMFORT ADVISOR Small calcaneal spurs. 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 Osteopenia. No acute fracture. Dictated by Santos Cox MD @ 08/08/2025 2:42:52 PM (Electronically Signed) Narrative 08/08/2025 2:42 PM HOME COMFORT ADVISOR For Patients: As a result of the [...] 2:42:52 PM (Electronically Signed) Authorizing ProviderResult TypeResult StatusDesii Александрq DOGENERAL IMAGINGFinal Result * URIC ACID (08/08/2025 2:04 PM HOME COMFORT ADVISOR)ComponentValueRef RangeTest MethodAnalysis TimePerformed AtPathologist SignatureURIC ACID5.52.5 - 7.0 mg/dL08/09/2025 3:54 AM CSTQUEST DIAGNOSTICSComment:Therapeutic target for gout patients: <6.0 mg/dLSpecimen (Source)Anatomical Location / LateralityCollection Method / VolumeCollection TimeReceived TimeBloodBLOOD SPECIMEN / UnknownQuest Collect / Vmhpdwo6108/08/2025 2:04 PM CST08/08/2025 2:04 PM HOME COMFORT ADVISOR Narrative Authorizing ProviderResult TypeResult StatusAdei Shaqra DOCHEMISTRYFinal Result Performing OrganizationAddressCity/State/ZIP CodePhone Number [facility] [place] [id number] [place] [address], * SCAN-RADIOLOGY REPORT (08/03/2025 12:00 AM HOME COMFORT ADVISOR)Anatomical RegionLaterality ModalityOther Narrative Authorizing ProviderResult TypeResult StatusScannerOTHERFinal Result * SCAN-ULTRASOUND REPORT (08/03/2025 12:00 AM HOME COMFORT ADVISOR)Anatomical RegionLaterality ModalityOther Narrative Authorizing ProviderResult TypeResult StatusScannerOTHERFinal Result * (ABNORMAL) POCT Urinalysis Dipstick Only [[id number]] (07/04/2025 4:19 PM CDT) ComponentValueRef RangeTest MethodAnalysis TimePerformed AtPathologist SignatureSPECIFIC GRAVITY1.0101.001 - 1.3604007/04/2025 4:34 PM [facility] PQTJXRLEHYHMGRQDRWKKKRFQSEWEL69/08/2025 4:34 PM [facility] TZVMGPKQKULYIZYDPYBMPZZJRCDBS21/08/2025 4:34 PM [facility] XVZKTFQUCTYXZJGEEZJTTIXELKVXL51/08/2025 4:34 PM [facility]ENTERBILIRUBINNEGATIVENEGATIVE07/04/2025 4:34 PM [facility]ENTEROCCULT BLOODTRACE(A)GEBZPGWX16/08/2025 4:34 PM [facility] CENTERNITRITENEGATIVENEGATIVE07/04/2025 4:34 PM [facility] CLINICPH7.05.0 - 8.010 4:34 PM [facility] CENTERLEUKOCYTE NNLNRZZAUACATYRSFKYYXLQB97/08/2025 4:34 PM CDT [facility]ENTERpecimen (Source)Anatomical Location / LateralityCollection Method / VolumeCollection TimeReceived TimeUrineURINE SPECIMEN / UnknownNon-Blood / Uhjthcg6007/04/2025 4:19 PM CDT1 4:19 PM CDT Narrative Authorizing ProviderResult TypeResult StatusAdei Shaqra DOURINEFinal Result Performing OrganizationAddressCity/State/ZIP CodePhone Number [facility] [address] [place] [address], [place] [phone] [facility] [address] [place] [address], [place] [phone] * URINALYSIS MICROSCOPIC [36160.1] - STAT (07/04/2025 4:19 PM CDT)ComponentValue Ref RangeTest MethodAnalysis TimePerformed AtPathologist YihpwrnnbQSI1-57-3, None Seen /HPF07/05/2025 6:51 AM [facility] XDCHXVDHFUTHH4-16-5, 3-5, None Seen /HPF07/05/2025 6:51 AM [facility] LABORATORYBACTERIANone SeenNone Seen, Rare, Few Bacteria/HPF07/05/2025 6:51 AM [facility] EPITHELIAL CELLSNone SeenNone Seen, Few Epi/HPF07/05/2025 6:51 AM [facility] LABORATORYHYALINE CASTS0-20-2, 3-5 /LP07/05/2025 6:51 AM [facility] LABORATORYSpecimen (Source) Anatomical Location / LateralityCollection Method / VolumeCollection Time Received TimeUrineURINE SPECIMEN / UnknownNon-Blood / Jbqehpl7207/04/2025 4:19 PM CDT1 4:19 PM CDT Narrative Authorizing ProviderResult TypeResult StatusAdei Kalia DOURINEFinal Result Performing OrganizationAddressCity/State/ZIP CodePhone Number [facility] [address] [address], [place] * URINE CULTURE [[id number]] (07/04/2025 4:19 PM CDT)ComponentValueRef RangeTest MethodAnalysis TimePerformed AtPathologist SignatureCULTURE<10,000 CFU/mL multiple reacsumao33/10/2025 9:01 AM [facility] LABORATORYSpecimen (Source)Anatomical Location / LateralityCollection Method / VolumeCollection TimeReceived TimeUrineURINE SPECIMEN / UnknownNon-Blood / Ifwxxcl9107/04/2025 4:19 PM CDT1 4:19 PM CDT Narrative Authorizing ProviderResult TypeResult StatusAdei Madhavra DOMICROBIOLOGYFinal ResultPerforming OrganizationAddressCity/State/ZIP CodePhone Number [facility] [address] [place] [address], * XR DEXA BONE DENSITY 2 SITES (04/29/2009)Anatomical RegionLateralityModality Spine, HIPS, HIPL, HIPRBone DensitometrySpecimen (Source)Anatomical Location / LateralityCollection Method / VolumeCollection TimeReceived Time Narrative Authorizing ProviderResult TypeResult StatusJoe Steinroro Willyluisjose DODEXAFinal Result from Last 3 Months or Most Recently Relevant to Health Maintenance Insurance * Guarantor: Sun Aleman TypeRelation to PatientDate of BirthPhone Billing AddressPersonal/UqgakrWvxb1940 [address] [place] [address] Advance Directives * Full Code (Latest Code [...] DateEnd Date Joann Motta DO [address] [place] [address] PCP - GeneralFamily Practice03/01/24 Zachariah Porter MD [address] [address] Xsggodsomq54/21/25 [place] Ruxkybaiwd72/21/25
[2025-09-26 14:49] VITALS: BP 154/81; PULSE 72; RESP 16; TEMP 36; O2SAT 98
== END 2025-09-26 16:59 | disposition left against medical advice (07) ==
LOC: ED 16:56
PROVIDERS: PCP Student in an Organized Health Care Education/Training Program
DX: Z53.21 Procedure and treatment not carried out due to patient leaving prior to being seen by health care provider (principal)

== ENCOUNTER 2025-09-26 19:59 | Outpatient (CLI) | payer MEDICARE, BC, SELFPAY | END 2025-09-26 20:01 | disposition home or self-care (01) | LOC: AMB 10-10 12:10 | PROVIDERS: PCP Student in an Organized Health Care Education/Training Program; Visit Provider Emergency Medicine Emergency Medical Services | DX: R53.1 Weakness (principal); U07.1 COVID-19 | CPT/HCPCS: A0425; A0427 ==

== ENCOUNTER 2025-09-26 20:22 | Emergency (ER) | payer MEDICARE, BC, SELFPAY ==
[2025-09-26 20:31] VITALS: BP 152/120; PULSE 145; RESP 18; TEMP 37.2; O2SAT 152; BMI 24.9
--- NOTE | 2025-09-26 20:51 | ED_ITS ---
HPI - General Adult General Chief complaint: Shortness of Breath/Dyspnea Stated complaint: COVID Time Seen by Provider: 09/26/25 20:35 History of Present Illness HPI narrative: Pt took a home covid test and it was positive . Pt was here earlier but left without being seen. Pt states she took a duoneb when she got home and her breathing is better. She just feels crummy 85-year-old woman presenting to the emergency department does feeling rather unwell over the last for 5 days. Was seen here 2 days ago with right-sided abdominal pain following pyeloplasty and stent placement. evaluation was ultimately reassuring Including extensive imaging. Nonspecific fat stranding was noted about the proximal right ureter that time and urine with minimal findings. Decision was to not treat with antibiotics at this time. Discharged with a DuoNeb with a history of reactive airway/ asthma and feeling of tight lungs. Has continued to feel unwell. has had some loose stools. Generally achy. week feeling like she might at times knock off. Does have a history of atrial fibrillation and is postprocedure early pending restarting of Eliquis. With encouragement of her daughter they did do a home COVID test this evening a was positive. Called in to the triage line recommended to be seen. This feeling of generally unwell to seems to come in waves. No treatments attempted yet. Measured fever. Feels like she is keeping up with fluids but when I discussed treating her symptoms at the moment she feels like she by would benefit from some IV fluids. Related Data Home Medications ?Medication ?Instructions ?Recorded ?Confirmed levothyroxine 88 mcg tablet 88 mcg PO DAILY 01/07/23 1 (Synthroid) albuterol sulfate 2.5 mg/3 mL 2.5 mg continuous nebuli zation Q4H 01/14/23 09/26/25 (0.083 %) solution for nebulization PRN cough budesonide-formoterol HFA 80 inhalation 09/24/25 mcg-4.5 mcg/actuation aerosol inhaler (Breyna) Previous Rx's ?Medication ?Instructions ?Recorded albuterol sulfate 90 mcg/actuation 2 puff inhalation Q 4-6H PRN 04/29/25 aerosol inhaler shortness of breath or wheez ing #8.5 grams ipratropium 0.5 mg-albuterol 3 mg 3 ml inhalation Q6H PRN #90 mL 04/29/25 (2.5 mg base)/3 mL nebulization soln ipratropium 0.5 mg-albuterol 3 mg 3 ml inhalation Q8H PRN #90 mL 09/24/25 (2.5 mg base)/3 mL nebulization soln nirmatrelvir 150 mg (10)-ritonavir See Rx Instructions PO .COMPLEX 09/26/25 100 mg (10) tablets in a dose pack #20 ea (Paxlovid) Allergies Allergy/AdvReac Type Severity Reaction Status Date / Time WILLIAM Inhibitors Allergy Mild Hives Verified 09/26/25 20:31 hyoscyamine (From Levsin) Allergy Mild Hives Verified 09/26/25 20:31 apixaban (From Eliquis) AdvReac Intermediate Diarrhea Verified 09/26/25 20:31 lisinopril AdvReac Mild Cough Verified 09/26/25 20:31 metoprolol AdvReac Mild Cough Verified 09/26/25 20:31 Review of Systems Status of ROS: Reports: 6 or more systems reviewed and unremarkable except as noted in History and below [facility] Medical History Vitamin D deficiency ?E55.9 - Vitamin D deficiency, unspecified (ICD-10) Osteopenia ?M85.80 - Other specified disorders of bone density and structure, unspecified site (ICD-10) 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 - Migraine with aura, not intractable, without status migrainosus (ICD-10) Intestinal infection due to campylobacter ?A04.5 - Campylobacter enteritis (ICD-10) Hypothyroidism ?E03.9 - Hypothyroidism, unspecified (ICD-10) Hypertension ?I10 - Essential (primary) hypertension (ICD-10) Hyperlipidemia ?E78.5 - Hyperlipidemia, unspecified (ICD-10) Hiatal hernia ?K44.9 - Diaphragmatic hernia without obstruction or gangrene (ICD-10) Esophageal reflux ?K21.9 - Gastro-esophageal reflux disease without esophagitis (ICD-10) Edema ?R60.9 - Edema, unspecified (ICD-10) Duodenal ulcer, unspecified as acute or chronic, without hemorrhage or perforation ?K26.9 - Duodenal ulcer, unspecified as acute or chronic, without hemorrhage or perforation (ICD-10) Chest pain ?R07.9 - Chest pain, unspecified (ICD-10) Anticoagulation monitoring, INR range 2-3 ?Z79.01 - group home (current) use of anticoagulants (ICD-10) Surgical History History of eye surgery ?Z98.890 - Other specified postprocedural states (ICD-10) History of lumbar discectomy ?Z98.890 - Other specified postprocedural states (ICD-10) History of cholecystectomy ?Z90.49 - Acquired absence of other specified parts of digestive tract (ICD- 10) History of knee replacement ?Z96.659 - Presence of unspecified artificial knee joint (ICD-10) History of surgery on lower extremity ?Z98.890 - Other specified postprocedural states (ICD-10) History of surgery on lower extremity ?Z98.890 - Other specified postprocedural states (ICD-10) History of esophagogastroduodenoscopy (EGD) ?Z98.890 - Other specified postprocedural states (ICD-10) S/P epidural steroid injection ?Z92.241 - Personal history of systemic steroid therapy (ICD-10) History of colonoscopy ?Z98.890 - Other specified postprocedural states (ICD-10) History of cataract removal with insertion of prosthetic lens ?Z98.49 - Cataract extraction status, unspecified eye (ICD-10) ?Z96.1 - Presence of intraocular lens (ICD-10) History of breast augmentation ?Z98.82 - Breast implant status (ICD-10) History of appendectomy ?Z90.49 - Acquired absence of other specified parts of digestive tract (ICD- 10) Social History Smoking Status: Never smoker Do you use any of these nicotine containing products: None Second hand tobacco smoke exposure: No How often do you have a drink containing alcohol: never How often do you have six or more drinks on one occasion: Never AUDIT-C Alcohol total score: 0 Non-prescribed substance use: denies use service: No Exam Narrative: Exam Narrative: Pleasant. Does appear tired. Cranial nerves 2-12 intact. Answers questions quickly however. Oropharynx is a little sticky. Lungs are clear. Little labored in her breathing but not rapid. Low lumbar well-healed surgical incision. Bandage on right flank consistent with recent procedure. No inflammatory changes of the skin. Trocar sites also in abdomen appear free of inflammatory change. Not really tender to palpation over the abdomen other than directly over the sites. Heart appears to be in a rapid rate and I think reg ular. Fast enough that I think it is hard to discern irregularity. extremities are well perfused and without edema. Const: Vital Signs, click to edit/add: Vital Signs - 24 hr 09/26/25 20:31 Temperature 99.0 F Pulse Rate [Right Pulse Oximeter] 145 H Respiratory Rate 18 Blood Pressure [Ri ght Upper Arm] 152/120 H Pulse Oximetry 152 H Oxygen Delivery Me thod Room Air Documenting provider has reviewed patient's vital signs: yes Course Vital Signs Vital signs: Initial Vital Signs Temperature 99.0 F 09/26/25 20:31 Temperature Source Temporal Artery Scan 09/26/25 20:31 Pulse Rate 145 H 09/26/25 20:31 Pulse Rhythm Regular 09/26/25 20:31 Pulse Strength 3+ Normal 09/26/25 20:31 Respiratory Rate 18 09/26/25 20:31 Blood Pressure 152/120 H 09/26/25 20:31 Blood Pressure Mean 130 H 09/26/25 20:31 Blood Pressure Position Sitting 09/26/25 20:31 Pulse Oximetry 152 H 09/26/25 20:31 Oxygen Delivery Method Room Air 09/26/25 20:31 Vital Signs Temperature 99.0 F 09/26/25 20:31 Pulse Rate 145 H 09/26/25 20:31 Respiratory Rate 18 09/26/25 20:31 Blood Pressure 152/120 H 09/26/25 20:31 Pulse Oximetry 152 H 09/26/25 20:31 Oxygen Delivery Method Room Air 09/26/25 20:31 Temperature 99.0 F 09/26/25 20:31 Pulse Rate 145 H 09/26/25 20:31 Respiratory Rate 18 09/26/25 20:31 Blood Pressure 152/120 H 09/26/25 20:31 Pulse Oximetry 152 H 09/26/25 20:31 Oxygen Delivery Method Room Air 09/26/25 20:31 Medical Decision Making MDM Narrative Medical decision making narrative: I think COVID can certainly explain all of her diagnoses. Seen 2 days ago with reassuring workup without indication of infection postop complication otherwise. Urine culture has not grown anything of significance. Confirming COVID test. Is within 5 days of onset of illness and might benefit from Paxlovid. GFR 40. Will need to review med interactions. Only taking levothyroxine and acetaminophen relatively regularly. occasional tamsulosin. Reviewing COVID interaction database there should not be any interactions with Paxlovid and medications that being taken other than tamsulosin which would be recommended to be taken intermittently anyway as alternative. GFR of 40 from labs from 2 days ago would indicate moderate renal dose reduction on reassessment Sun has more energy. Looks to be feeling much better. Reports to be feeling better. feels she can return home. Recheck blood pressure by myself is 130/70 approximately. See patient discharge plan for further discussion focus on hydration. might sleep under the mist of a cool mist humidifier. Menthol vapors might be helpful. can take ibuprofen or acetaminophen for discomfort. Consider taking daily low-dose /81 mg aspirin for now. as discussed, prescribing 5 day course of Paxlovid. I would practice quarantine for 10 days from initial day of onset of illness. Consider also than checking with home COVID tests to verify negative antigen after quarantine; check every day or 2 following quarantine? return for persistent increased shortness of breath, uncontrolled fever, markedly worse weakness, repeated vomiting. Medical Records Medical records reviewed: Yes I reviewed the patient's medical records Lab Data Labs: Lab Results 09/26/25 Range/Units 20:48 SARS-CoV-2 (PCR) POSITIVE SARS-CoV-2 A (Negative) Influenza Type A (PCR) Negative PCR FLU A (Negative) Influenza Type B (PCR) Negative PCR FLU B (Negative) RSV (PCR) Negative PCR RSV (Negative) ECG Data Attestation: I personally reviewed and interpreted this ECG as follows: ( atrial fibrillation with RVR at a rate of 108) Discharge Plan Discharge Clinical Impression: COVID-19, Fatigue, Atrial fibrillation with rapid ventricular response Patient Disposition: Home w/ Parent or Adult Condition: Improved Additional Instructions: focus on hydration. might sleep under the mist of a cool mist humidifier. Menthol vapors might be helpful. can take ibuprofen or acetaminophen for discomfort. Consider taking daily low-dose /81 mg aspirin for now. as discussed, prescribing 5 day course of Paxlovid. I would practice quarantine for 10 days from initial day of onset of illness. Consider also than checking with home COVID tests to verify negative antigen after quarantine; check every day or 2 following quarantine? return for persistent increased shortness of breath, uncontrolled fever, markedly worse weakness, repeated vomiting. Prescriptions: New Paxlovid 150 mg (10)- 100 mg (10) tablets,dose pack See Rx Instructions .ROUTE .COMPLEX Qty: 20 0RF Rx Instructions: orally per package directions No Action albuterol sulfate 2.5 mg /3 mL (0.083 %) solution for nebulization 2.5 mg continuous nebulization Q4H PRN (Reason: cough) budesonide-formoterol [Breyna] 80-4.5 mcg/actuation HFA aerosol inhaler inhalation ipratropium-albuterol 0.5 mg-3 mg(2.5 mg base)/3 mL solution for nebulization 3 ml inhalation Q8H PRNQty: 90 0RF levothyroxine [Synthroid] 88 mcg tablet 88 mcg PO DAILY albuterol sulfate 90 mcg/actuation HFA aerosol inhaler 2 puff inhalation Q4-6H PRN (Reason: shortness of breath or wheezing) Qty: 8.5 1RF ipratropium-albuterol 0.5 mg-3 mg(2.5 mg base)/3 mL solution for nebulization 3 ml inhalation Q6H PRNQty: 90 1RF Patient Comments: old prescription and would like more Follow Up/Referrals: MEKA RUCKER DO [Primary Care Provider, Family Practice] Stand Alone Forms: Single Digitsth Info Instructions
[2025-09-26 21:31] LABS: PCR FLU A Negative PCR FLU A (Negative); PCR FLU B Negative PCR FLU B (Negative); PCR RSV Negative PCR RSV (Negative); SARS PCR* POSITIVE SARS-CoV-2 (Negative)
[2025-09-26] MEDS: ONDANSETRON 2 MG/ML inj 4 MG IVP (22:57)
== END 2025-09-26 22:56 | disposition home or self-care (01) ==
PROVIDERS: Emergency Provider Family Medicine; PCP Student in an Organized Health Care Education/Training Program
DX: U07.1 COVID-19 (principal); R53.83 Other fatigue; I48.91 Unspecified atrial fibrillation; Z79.01 Long term (current) use of anticoagulants
CPT/HCPCS: 87631; 99283; 99284; J1885; J2405; J7030